=== PATIENT | male | born 1970 | race Caucasian/White ===

== ENCOUNTER 2017-07-14 18:40 | Emergency (ER) | payer MEDICAID ==
[~2017-07-14] VITALS: Ht 177.8 cm; Wt 77.1 kg
[2017-07-14 19:13] VITALS: BP 161/102
[2017-07-15] MEDS ORDERED: LORazepam 0.5 MG TAB PO ONE (02:30)
== END 2017-07-15 03:02 | disposition home or self-care (01) ==
LOC: ER 18:40 → EDBD 18:40 → ER 07-15 03:02
DX: F41.9 Anxiety disorder, unspecified (principal); F10.10 Alcohol abuse, uncomplicated; F17.210 Nicotine dependence, cigarettes, uncomplicated; Z59.0 Homelessness

== ENCOUNTER 2018-04-23 08:35 | Emergency (ER) | payer MEDICAID ==
[~2018-04-23] VITALS: Ht 175.3 cm; Wt 72.6 kg
[2018-04-23 09:19] LABS: Basophils # (auto) 0.1 uL; Hematocrit 50.2 % (41.0-53.0); Hemoglobin 17.5 g/dL (13.5-17.5); Lymphocytes # (auto) 0.7 uL; Mean Corpuscular Hemoglobin 36.3 pg (28.0-32.0); Nucleated Red Blood Cells % 0.1 %; Platelet Count (auto) 201 10^3/uL (140-450); Red Blood Cells 4.81 10^6/uL (4.5-5.90); White Blood Cell 4.7 10^3/uL (4.4-10.8)
[2018-04-23 09:21] LABS: Basophils % (auto) 1.3 % (0.0-2.0); Eosinophils # (auto) 0.1 uL; Eosinophils % (auto) 1.2 % (0.0-7.0); Lymphocytes % (auto) 15.6 % (10.0-50.0); Mean Corpuscular Hgb Conc. 34.8 g/dL (32.0-36.0); Mean Corpuscular Volume 104.3 fL (80.0-100.0); Monocytes # (auto) 0.6 uL; Monocytes % (auto) 12.2 % (0.0-12.0); Neutrophils # (auto) 3.3 uL; Neutrophils % (auto) 69.7 % (37.0-80.0); Red Cell Distribution Width 15.4 % (11.8-14.3)
[2018-04-23 09:39] LABS: Alanine Aminotransferase 18 U/L (16-61); Amylase 40 U/L (25-115); Anion Gap 7 (5-15); Aspartate Aminotransferase 31 U/L (15-37); BUN/Creatinine Ratio 16.2; Blood Urea Nitrogen 11 mg/dL (7-18); Carbon Dioxide 26 mmol/L (21-32); Chloride 106 mmol/L (98-107); GFR African American 161 mL/min; GFR Non-African American 133 mL/min; Glucose 85 mg/dL (74-106); Lipase 84 U/L (73-393); Potassium 3.9 mmol/L (3.5-5.1); Sodium 139 mmol/L (136-145)
[2018-04-23 09:44] LABS: Alkaline Phosphatase 68 U/L (45-117); Bilirubin, Total 0.6 mg/dL (0.2-1.0); Total Protein 7.9 g/dL (6.4-8.2)
[2018-04-23] MEDS ORDERED: SODIUM CHLORIDE 0.9% 1,000 ML IVB ONE (10:44)
[2018-04-23] MEDS ORDERED: METOCLOPRAMIDE HCL 5MG/ml INJ 2ml VIAL IV ONE (10:45)
[2018-04-23] MEDS ORDERED: DONNATAL 5ml ORAL Elix (BELLADONNA ALK-PHENOBARB) PO ONE (10:45)
[2018-04-23] MEDS ORDERED: FAMOTIDINE 20 MG TAB PO ONE (10:45)
[2018-04-23] MEDS ORDERED: ALUM & MAG HYDROX-SIMETH LIQ(MAALOX) 30 ML PO ONE (10:45)
[2018-04-23 11:56] LABS: Urine Bacteria NONE SEEN /hpf (None Seen); Urine Blood Negative /uL (Negative); Urine Hyaline Cast FEW /lpf (0 - 2); Urine Mucus FEW (None Seen); Urine Specific Gravity 1.024 (1.001-1.035); Urine WBC 3 /hpf (0 - 3)
[2018-04-23] MEDS ORDERED: THIAMINE INJ 100 MG, MULTIPLE VITAMIN 10 ML, FOLIC ACID 1 MG, MAGNESIUM SULF SDV 50% 8 ... IV SCH ×5 (12:00)
[2018-04-23 12:57] LABS: Alcohol, Urine < 3.0 mg/dL (0-5); Amphetamine Screen, Urine NEGATIVE (NEGATIVE); Barbiturate Scree,Urine NEGATIVE (NEGATIVE); Benzodiazephine Screen, Urine NEGATIVE (NEGATIVE); Cannabinoid Screen, Urine NEGATIVE (NEGATIVE); Cocaine Screen, Urine NEGATIVE (NEGATIVE); Opiate Scree,Urine NEGATIVE (NEGATIVE); Phencyclidine Screen, Urine NEGATIVE (NEGATIVE)
[2018-04-23 16:15] VITALS: BP 114/86
== END 2018-04-23 15:48 | disposition home or self-care (01) ==
LOC: ER 08:35 → EDBD 08:35 → EDUNIT# 08:35 → ER 15:48
DX: F41.1 Generalized anxiety disorder (principal); F10.239 Alcohol dependence with withdrawal, unspecified; I10 Essential (primary) hypertension; F17.210 Nicotine dependence, cigarettes, uncomplicated; Y90.0 Blood alcohol level of less than 20 mg/100 ml; Z59.0 Homelessness
CPT/HCPCS: 36415; 71046; 71250; 80053; 80307; 81001; 82150; 83690; 83735; 84484; 85025; 93005; 96361; 96374; 96375; 99284; J2765; J3411; J3475; J7030

== ENCOUNTER 2019-02-28 16:43 | Emergency (ER) | payer MEDICAID ==
[~2019-02-28] VITALS: Ht 172.7 cm; Wt 68.0 kg
[2019-02-28 18:51] LABS: Basophils # (auto) 0.1 uL; Basophils % (auto) 0.8 % (0.0-2.0); Eosinophils # (auto) 0.4 uL; Eosinophils % (auto) 4.7 % (0.0-7.0); Hematocrit 43.5 % (41.0-53.0); Hemoglobin 14.4 g/dL (13.5-17.5); Lymphocytes # (auto) 3.6 uL; Lymphocytes % (auto) 41.8 % (10.0-50.0); Mean Corpuscular Hemoglobin 31.1 pg (28.0-32.0); Mean Corpuscular Volume 94.2 fL (80.0-100.0); Monocytes # (auto) 0.6 uL; Monocytes % (auto) 6.9 % (0.0-12.0); Neutrophils % (auto) 45.8 % (37.0-80.0); Nucleated Red Blood Cells % 0.1 %; Platelet Count (auto) 406 10^3/uL (140-450); Red Blood Cells 4.62 10^6/uL (4.5-5.90); Red Cell Distribution Width 14.4 % (11.8-14.3); White Blood Cell 8.7 10^3/uL (4.4-10.8)
[2019-02-28 19:26] LABS: Albumin 4.6 g/dL (3.4-5.0); Potassium 3.7 mmol/L (3.5-5.1)
[2019-02-28 19:33] LABS: BUN/Creatinine Ratio 15.7; Bilirubin, Total 0.2 mg/dL (0.2-1.0); Total Protein 8.6 g/dL (6.4-8.2)
[2019-02-28] MEDS ORDERED: SODIUM CHLORIDE 0.9% 3,000 ML IV ONE (21:00)
[2019-02-28 23:53] LABS: Amphetamine Screen, Urine NEGATIVE (NEGATIVE); Barbiturate Scree,Urine NEGATIVE (NEGATIVE); Benzodiazephine Screen, Urine NEGATIVE (NEGATIVE); Cannabinoid Screen, Urine NEGATIVE (NEGATIVE); Cocaine Screen, Urine NEGATIVE (NEGATIVE); Opiate Scree,Urine NEGATIVE (NEGATIVE); Phencyclidine Screen, Urine NEGATIVE (NEGATIVE)
[2019-03-01] MEDS ORDERED: SODIUM CHLORIDE 0.9% 2,000 ML IV ONE (02:15)
[2019-03-01 04:00] VITALS: BP 114/76
== END 2019-03-01 05:51 | disposition home or self-care (01) ==
LOC: EDBD 16:43 → ER 16:52
DX: F10.129 Alcohol abuse with intoxication, unspecified (principal); F17.210 Nicotine dependence, cigarettes, uncomplicated; Z59.0 Homelessness; Y90.8 Blood alcohol level of 240 mg/100 ml or more
CPT/HCPCS: 36415; 80053; 80307; 80320; 85025; 99283; J7030

== ENCOUNTER → 2019-09-25 | Emergency (ER) | payer MEDICAID ==
[~2019-09-25] VITALS: Ht 175.3 cm; Wt 61.2 kg
[2019-09-25 19:08] VITALS: BP 112/88
== END ==
LOC: ER 19:02
DX: F10.10 Alcohol abuse, uncomplicated (principal); R51 Headache; I10 Essential (primary) hypertension; V43.52XA Car driver injured in collision with other type car in traffic accident, initial encounter; Y93.89 Activity, other specified; Y92.89 Other specified places as the place of occurrence of the external cause; Y99.8 Other external cause status

== ENCOUNTER 2019-10-03 16:21 | Emergency (ER) | payer MEDICAID ==
[~2019-10-03] VITALS: Ht 175.3 cm; Wt 61.2 kg
[2019-10-03] MEDS ORDERED: SODIUM CHLORIDE 0.9% 1,000 ML IV ONE (16:48)
[2019-10-03] MEDS ORDERED: cefTRIAXone 1GM/50ML D5W 50 ML IV ONE (17:00)
[2019-10-03 17:22] LABS: Mean Corpuscular Volume 108.1 fL (80.0-100.0)
[2019-10-03 17:24] LABS: Hematocrit 38.8 % (41.0-53.0); Hemoglobin 13.3 g/dL (13.5-17.5); Mean Corpuscular Hemoglobin 36.9 pg (28.0-32.0); Mean Corpuscular Hgb Conc. 34.2 g/dL (32.0-36.0); Platelet Count (auto) 149 10^3/uL (140-450); Red Blood Cells 3.59 10^6/uL (4.5-5.90); Red Cell Distribution Width 14.2 % (11.8-14.3)
[2019-10-03 17:27] LABS: Basophils % (manual) 0 (0.0-2.0); Blast Cells 0; Metamyelocytes % 0; Myelocytes % 0; Promyelocytes % 0; Reactive Lymphocytes 0
[2019-10-03 17:41] LABS: Albumin 2.9 g/dL (3.4-5.0); Calcium 8.1 mg/dL (8.5-10.1); Magnesium 2.1 mg/dL (1.6-2.6); Potassium 3.5 mmol/L (3.5-5.1)
[2019-10-03 17:46] LABS: BUN/Creatinine Ratio 6.4; Bilirubin, Total 0.7 mg/dL (0.2-1.0); Total Protein 5.8 g/dL (6.4-8.2)
[2019-10-03 18:45] LABS: Band Neutrophils % (manual) 3; Eosinophils % (manual) 2 (0-7); Lymphocytes % (manual) 16 (10.0-50.0); Monocytes % (manual) 15 (0-12)
[2019-10-03 20:55] VITALS: BP 118/80
== END 2019-10-03 21:09 | disposition home or self-care (01) ==
LOC: EDBD 16:21 → ER 16:21
DX: L03.116 Cellulitis of left lower limb (principal); L03.115 Cellulitis of right lower limb; D75.89 Other specified diseases of blood and blood-forming organs; B35.0 Tinea barbae and tinea capitis; F10.129 Alcohol abuse with intoxication, unspecified; Z59.0 Homelessness; I10 Essential (primary) hypertension; Y90.9 Presence of alcohol in blood, level not specified
CPT/HCPCS: 36415; 71046; 73630; 80053; 83735; 85007; 85027; 93005; 96365; 99285; J0696

== ENCOUNTER 2020-03-23 20:10 | Emergency (ER) | payer MEDICAID ==
[~2020-03-23] VITALS: Ht 175.3 cm; Wt 63.5 kg
[2020-03-23 21:46] LABS: Basophils # (auto) 0 10 ^3/uL (0-0.2); Basophils % (auto) 0.6 % (0.0-2.0); Eosinophils # (auto) 0.2 10 ^3/uL (0-0.8); Eosinophils % (auto) 2.4 % (0.0-7.0); Hemoglobin 15.6 g/dL (13.5-17.5); Lymphocytes # (auto) 3.5 10 ^3/uL (0.4-5.4); Lymphocytes % (auto) 49.6 % (10.0-50.0); Mean Corpuscular Hemoglobin 32.4 pg (28.0-32.0); Mean Corpuscular Hgb Conc. 33.2 g/dL (32.0-36.0); Mean Corpuscular Volume 97.6 fL (80.0-100.0); Monocytes # (auto) 0.7 10 ^3/uL (0-1.3); Monocytes % (auto) 9.9 % (0.0-12.0); Neutrophils # (auto) 2.7 10 ^3/uL (1.6-8.6); Neutrophils % (auto) 37.5 % (37.0-80.0); Nucleated Red Blood Cells % 0.1 %; Platelet Count (auto) 250 10^3/uL (140-450); Red Blood Cells 4.82 10^6/uL (4.5-5.90); Red Cell Distribution Width 16.5 % (11.8-14.3); White Blood Cell 7.1 10^3/uL (4.4-10.8)
[2020-03-23 21:59] LABS: Albumin 4.4 g/dL (3.4-5.0)
[2020-03-23 22:00] LABS: Acetaminophen < 2.0 ug/mL (10-30); Salicylate 6.8 mg/dL (2.8-20.0)
[2020-03-23 22:04] LABS: Urine WBC None Seen /hpf (0 - 3)
[2020-03-23 22:05] LABS: BUN/Creatinine Ratio 11.1; Bilirubin, Total 0.2 mg/dL (0.2-1.0); Total Protein 8.4 g/dL (6.4-8.2)
[2020-03-23 22:20] LABS: Urine Bacteria NONE SEEN /hpf (None Seen); Urine Blood Negative /uL (Negative); Urine Hyaline Cast MANY /lpf (0 - 2); Urine Mucus FEW (None Seen); Urine Specific Gravity 1.017 (1.001-1.035)
[2020-03-23 22:30] LABS: Amphetamine Screen, Urine NEGATIVE (NEGATIVE); Barbiturate Scree,Urine NEGATIVE (NEGATIVE); Benzodiazephine Screen, Urine NEGATIVE (NEGATIVE); Cannabinoid Screen, Urine NEGATIVE (NEGATIVE); Cocaine Screen, Urine NEGATIVE (NEGATIVE); Phencyclidine Screen, Urine NEGATIVE (NEGATIVE)
[2020-03-23 22:39] LABS: Opiate Scree,Urine NEGATIVE (NEGATIVE)
[2020-03-23] MEDS ORDERED: SODIUM CHLORIDE 0.9% 1,000 ML IV ONE (22:45)
[2020-03-23] MEDS ORDERED: THIAMINE INJ 100 MG in SODIUM CHLORIDE 0.9% 1,000 ML IV ONE (22:45)
[2020-03-24] MEDS ORDERED: THIAMINE 100mg/ml INJ (200mg/2ml VIAL) ONE ×2 (00:06→02:29)
[2020-03-24] MEDS ORDERED: chlordiazePOXIDE HCL 5 MG CAP PO SCH (10:00)
[2020-03-24] MEDS: chlordiazePOXIDE HCL 5 MG CAP PO SCH (22:00)
[2020-03-25] MEDS: chlordiazePOXIDE HCL 5 MG CAP PO SCH ×2 (10:32→21:52)
[2020-03-26] MEDS: chlordiazePOXIDE HCL 5 MG CAP PO SCH (09:08)
[2020-03-27] MEDS: chlordiazePOXIDE HCL 5 MG CAP PO SCH ×3 (00:04→22:19)
[2020-03-27] MEDS ORDERED: chlordiazePOXIDE HCL 5 MG CAP ONE ×2 (11:16→22:11)
[2020-03-27] MEDS ORDERED: chlordiazePOXIDE HCL 25 MG CAP ONE (21:57)
[2020-03-28 09:58] VITALS: BP 110/83
== END 2020-03-28 10:59 | disposition home or self-care (01) ==
LOC: EDBD 20:10 → ER 20:14
DX: F10.129 Alcohol abuse with intoxication, unspecified (principal); R45.851 Suicidal ideations; I10 Essential (primary) hypertension; Y90.9 Presence of alcohol in blood, level not specified; F17.210 Nicotine dependence, cigarettes, uncomplicated; Z20.828 Contact with and (suspected) exposure to other viral communicable diseases
CPT/HCPCS: 36415; 80053; 80307; 80320; 80329; 81001; 85025; 87426; 96361; 96365; 99285; C9803; J3411; J7030; U0003

== ENCOUNTER 2020-04-14 17:10 | Emergency (ER) | payer MEDICAID ==
[~2020-04-14] VITALS: Ht 177.8 cm; Wt 61.2 kg
[2020-04-14 17:17] VITALS: BP 117/72
[2020-04-14] MEDS: HYDROcodone-ACET 10/325MG TAB PO ONE (19:45)
== END 2020-04-14 20:59 | disposition left against medical advice (07) ==
LOC: EDBD 17:10 → EDUNIT# 17:10 → ER 17:12
DX: S00.81XA Abrasion of other part of head, initial encounter (principal); F10.129 Alcohol abuse with intoxication, unspecified; F17.210 Nicotine dependence, cigarettes, uncomplicated; Z59.0 Homelessness; W18.39XA Other fall on same level, initial encounter; Y93.89 Activity, other specified; Y92.89 Other specified places as the place of occurrence of the external cause; Y99.8 Other external cause status; Y90.8 Blood alcohol level of 240 mg/100 ml or more
CPT/HCPCS: 70450; 70486; 72125

== ENCOUNTER 2020-04-15 12:43 | Emergency (ER) | payer MEDICAID ==
[~2020-04-15] VITALS: Ht 175.3 cm; Wt 59.0 kg
[2020-04-15 13:01] VITALS: BP 132/90
== END 2020-04-15 16:01 | disposition left against medical advice (07) ==
LOC: EDBD 12:43 → ER 12:43
DX: F10.10 Alcohol abuse, uncomplicated (principal); F17.210 Nicotine dependence, cigarettes, uncomplicated; I10 Essential (primary) hypertension; Z59.0 Homelessness
CPT/HCPCS: 93005

== ENCOUNTER 2020-04-16 01:36 | Emergency (ER) | payer MEDICAID ==
[~2020-04-16] VITALS: Ht 175.3 cm; Wt 81.6 kg
[2020-04-16 02:26] LABS: Basophils # (auto) 0.1 10 ^3/uL (0-0.2); Basophils % (auto) 0.7 % (0.0-2.0); Eosinophils # (auto) 0.3 10 ^3/uL (0-0.8); Eosinophils % (auto) 4.1 % (0.0-7.0); Hematocrit 45.6 % (41.0-53.0); Hemoglobin 15.4 g/dL (13.5-17.5); Lymphocytes # (auto) 2.7 10 ^3/uL (0.4-5.4); Lymphocytes % (auto) 31.8 % (10.0-50.0); Mean Corpuscular Hemoglobin 33.4 pg (28.0-32.0); Mean Corpuscular Hgb Conc. 33.7 g/dL (32.0-36.0); Mean Corpuscular Volume 99.3 fL (80.0-100.0); Monocytes # (auto) 0.7 10 ^3/uL (0-1.3); Monocytes % (auto) 7.8 % (0.0-12.0); Neutrophils # (auto) 4.8 10 ^3/uL (1.6-8.6); Neutrophils % (auto) 55.6 % (37.0-80.0); Nucleated Red Blood Cells % 0.1 %; Platelet Count (auto) 344 10^3/uL (140-450); Red Blood Cells 4.59 10^6/uL (4.5-5.90); Red Cell Distribution Width 16.9 % (11.8-14.3); White Blood Cell 8.6 10^3/uL (4.4-10.8)
[2020-04-16 02:45] LABS: Alanine Aminotransferase 20 U/L (16-61); Albumin 4.3 g/dL (3.4-5.0); Anion Gap 7 (5-15); Aspartate Aminotransferase 23 U/L (15-37); BUN/Creatinine Ratio 14.4; Blood Urea Nitrogen 13 mg/dL (7-18); Carbon Dioxide 26 mmol/L (21-32); Chloride 106 mmol/L (98-107); GFR African American 115 mL/min; GFR Non-African American 95 mL/min; Glucose 72 mg/dL (74-106); Magnesium 1.7 mg/dL (1.6-2.6); Potassium 4.1 mmol/L (3.5-5.1); Sodium 139 mmol/L (136-145)
[2020-04-16 02:50] LABS: Alkaline Phosphatase 77 U/L (45-117); Bilirubin, Total 0.5 mg/dL (0.2-1.0); Total Protein 8.1 g/dL (6.4-8.2)
[2020-04-16 03:01] LABS: INR 0.91 (0.9-1.15); Partial Thromboplastin Time 28.5 sec (23.0-31.2)
[2020-04-16 07:30] VITALS: BP 124/72
== END 2020-04-16 09:10 | disposition home or self-care (01) ==
LOC: ER 01:36 → EDBD 01:36 → ER 09:09
DX: R07.89 Other chest pain (principal); F41.9 Anxiety disorder, unspecified; E86.0 Dehydration; I10 Essential (primary) hypertension; F17.210 Nicotine dependence, cigarettes, uncomplicated; Z59.0 Homelessness
CPT/HCPCS: 36415; 71045; 80053; 83735; 83880; 84443; 84484; 85025; 85610; 85730; 93005

== ENCOUNTER 2020-04-19 20:59 | Emergency (ER) | payer MEDICAID ==
[~2020-04-19] VITALS: Ht 172.7 cm; Wt 65.8 kg
[2020-04-19] MEDS ORDERED: SODIUM CHLORIDE 0.9% 1,000 ML IV ONE (21:30)
[2020-04-19] MEDS ORDERED: THIAMINE INJ 100 MG in SODIUM CHLORIDE 0.9% 1,000 ML IV ONE (21:30)
[2020-04-19 22:14] LABS: Urine WBC None Seen /hpf (0 - 3)
[2020-04-19 22:49] LABS: Urine Bacteria NONE SEEN /hpf (None Seen); Urine Blood Negative /uL (Negative); Urine Specific Gravity 1.003 (1.001-1.035)
[2020-04-19 22:53] LABS: Amphetamine Screen, Urine NEGATIVE (NEGATIVE); Barbiturate Scree,Urine NEGATIVE (NEGATIVE); Benzodiazephine Screen, Urine NEGATIVE (NEGATIVE); Cannabinoid Screen, Urine NEGATIVE (NEGATIVE); Cocaine Screen, Urine NEGATIVE (NEGATIVE); Opiate Scree,Urine NEGATIVE (NEGATIVE); Phencyclidine Screen, Urine NEGATIVE (NEGATIVE)
[2020-04-19 23:06] LABS: Basophils # (auto) 0 10 ^3/uL (0-0.2); Basophils % (auto) 0.6 % (0.0-2.0); Eosinophils # (auto) 0.4 10 ^3/uL (0-0.8); Eosinophils % (auto) 5.7 % (0.0-7.0); Hematocrit 43.3 % (41.0-53.0); Hemoglobin 14.7 g/dL (13.5-17.5); Lymphocytes # (auto) 2.9 10 ^3/uL (0.4-5.4); Lymphocytes % (auto) 43.9 % (10.0-50.0); Mean Corpuscular Hemoglobin 33.4 pg (28.0-32.0); Mean Corpuscular Hgb Conc. 33.8 g/dL (32.0-36.0); Mean Corpuscular Volume 98.8 fL (80.0-100.0); Monocytes # (auto) 0.5 10 ^3/uL (0-1.3); Monocytes % (auto) 7.9 % (0.0-12.0); Neutrophils # (auto) 2.7 10 ^3/uL (1.6-8.6); Neutrophils % (auto) 41.9 % (37.0-80.0); Nucleated Red Blood Cells % 0.2 %; Platelet Count (auto) 234 10^3/uL (140-450); Red Blood Cells 4.38 10^6/uL (4.5-5.90); Red Cell Distribution Width 16.4 % (11.8-14.3); White Blood Cell 6.5 10^3/uL (4.4-10.8)
[2020-04-19 23:28] LABS: Acetaminophen < 2.0 ug/mL (10-30); Salicylate 8.7 mg/dL (2.8-20.0)
[2020-04-19 23:29] LABS: Calcium 8.3 mg/dL (8.5-10.1); Chloride 115 mmol/L (98-107); Potassium 3.6 mmol/L (3.5-5.1); Sodium 146 mmol/L (136-145)
[2020-04-19 23:32] LABS: Alanine Aminotransferase 15 U/L (16-61); Albumin 3.8 g/dL (3.4-5.0); Aspartate Aminotransferase 16 U/L (15-37); BUN/Creatinine Ratio 12.1; Blood Urea Nitrogen 8 mg/dL (7-18); GFR African American 165 mL/min; GFR Non-African American 136 mL/min; Glucose 80 mg/dL (74-106); Magnesium 2.1 mg/dL (1.6-2.6)
[2020-04-19 23:40] LABS: INR 0.88 (0.9-1.15); Partial Thromboplastin Time 26.8 sec (23.0-31.2)
[2020-04-19 23:41] LABS: Alkaline Phosphatase 70 U/L (45-117); Bilirubin, Total 0.2 mg/dL (0.2-1.0); Total Protein 7.5 g/dL (6.4-8.2)
[2020-04-19 23:42] LABS: Anion Gap 5 (5-15); Carbon Dioxide 26 mmol/L (21-32)
[2020-04-20] MEDS ORDERED: LORazepam 2MG/ML-1ML VIAL IV ONE (00:30)
[2020-04-20] MEDS ORDERED: diphenhdrAMINE HCL 50 MG/1 ML VL IV ONE (00:45)
[2020-04-20] MEDS ORDERED: SODIUM CHLORIDE 0.9% 1,000 ML IV ONE (03:15)
[2020-04-20] MEDS ORDERED: IOHEXOL 350 MG/ML 100ML IJ ONE (03:25)
[2020-04-20 10:31] VITALS: BP 123/85
== END 2020-04-20 10:32 | disposition home or self-care (01) ==
LOC: EDBD 20:59 → ER 21:02
DX: S00.81XA Abrasion of other part of head, initial encounter (principal); Y90.8 Blood alcohol level of 240 mg/100 ml or more; R45.851 Suicidal ideations; F41.9 Anxiety disorder, unspecified; F32.9 Major depressive disorder, single episode, unspecified; I10 Essential (primary) hypertension; Z86.2 Personal history of diseases of the blood and blood-forming organs and certain disorders involving the immune mechanism; F10.129 Alcohol abuse with intoxication, unspecified; X58.XXXA Exposure to other specified factors, initial encounter; Y93.89 Activity, other specified; Y92.89 Other specified places as the place of occurrence of the external cause; Y99.8 Other external cause status
CPT/HCPCS: 36415; 71045; 71275; 80053; 80307; 80320; 80329; 81001; 83735; 84484; 85025; 85379; 85610; 85730; 96361; 96365; 96375; 99285; J2060; J3411; J7030; Q9967

== ENCOUNTER 2021-03-24 13:51 | Emergency (ER) | payer MEDICAID ==
[~2021-03-24] VITALS: Ht 180.3 cm; Wt 77.1 kg
[2021-03-24] MEDS ORDERED: SODIUM CHLORIDE 0.9% 1,000 ML IV ONE ×2 (14:00→17:15)
[2021-03-24 14:33] LABS: Basophils # (auto) 0 10 ^3/uL (0-0.2); Basophils % (auto) 0.6 % (0.0-2.0); Eosinophils # (auto) 0.1 10 ^3/uL (0-0.8); Hematocrit 45.9 % (41.0-53.0); Lymphocytes # (auto) 0.9 10 ^3/uL (0.4-5.4); Lymphocytes % (auto) 12.6 % (10.0-50.0); Mean Corpuscular Hemoglobin 36.5 pg (28.0-32.0); Mean Corpuscular Hgb Conc. 34.8 g/dL (32.0-36.0); Mean Corpuscular Volume 104.8 fL (80.0-100.0); Monocytes # (auto) 0.4 10 ^3/uL (0-1.3); Monocytes % (auto) 5.2 % (0.0-12.0); Neutrophils # (auto) 5.9 10 ^3/uL (1.6-8.6); Neutrophils % (auto) 80.6 % (37.0-80.0); Red Blood Cells 4.38 10^6/uL (4.5-5.90); Red Cell Distribution Width 16.7 % (11.8-14.3); White Blood Cell 7.3 10^3/uL (4.4-10.8)
[2021-03-24 14:48] LABS: Albumin 3.6 g/dL (3.4-5.0); BUN/Creatinine Ratio 19.8; Calcium 8.1 mg/dL (8.5-10.1)
[2021-03-24 14:52] LABS: Bilirubin, Total 0.2 mg/dL (0.2-1.0); Total Protein 7.3 g/dL (6.4-8.2)
[2021-03-24 19:45] VITALS: BP 134/44
== END 2021-03-24 23:44 | disposition home or self-care (01) ==
LOC: EDBD 13:51 → ER 13:51
DX: F10.129 Alcohol abuse with intoxication, unspecified (principal); R07.89 Other chest pain; F17.210 Nicotine dependence, cigarettes, uncomplicated; Y90.8 Blood alcohol level of 240 mg/100 ml or more
CPT/HCPCS: 36415; 80053; 80320; 85025; 93005

== ENCOUNTER 2021-04-01 12:27 | Emergency (ER) | payer MEDICAID ==
[~2021-04-01] VITALS: Ht 175.3 cm; Wt 61.2 kg
[2021-04-01] MEDS ORDERED: SODIUM CHLORIDE 0.9% 1,000 ML IVB ONE (13:15)
[2021-04-01] MEDS ORDERED: FOLIC ACID 1 MG, MULTIPLE VITAMIN 10 ML, MAGNESIUM SULF SDV 50% 8 MEQ, THIAMINE INJ 100... INJ SCH ×5 (13:21)
[2021-04-01 14:10] LABS: Albumin 3.7 g/dL (3.4-5.0); BUN/Creatinine Ratio 23.9; Calcium 8.5 mg/dL (8.5-10.1); Magnesium 1.9 mg/dL (1.6-2.6); Potassium 3.5 mmol/L (3.5-5.1)
[2021-04-01 14:13] LABS: Bilirubin, Total 0.7 mg/dL (0.2-1.0); Total Protein 7.2 g/dL (6.4-8.2)
[2021-04-01 14:34] LABS: Basophils # (auto) 0.1 10 ^3/uL (0-0.2); Basophils % (auto) 1.3 % (0.0-2.0); Blood Alcohol 315.1 mg/dL (0-5); Eosinophils # (auto) 0.1 10 ^3/uL (0-0.8); Eosinophils % (auto) 1.4 % (0.0-7.0); Hematocrit 52.3 % (41.0-53.0); Hemoglobin 17.9 g/dL (13.5-17.5); Lymphocytes % (auto) 19.4 % (10.0-50.0); Mean Corpuscular Hemoglobin 35.1 pg (28.0-32.0); Mean Corpuscular Hgb Conc. 34.2 g/dL (32.0-36.0); Mean Corpuscular Volume 102.6 fL (80.0-100.0); Monocytes # (auto) 0.3 10 ^3/uL (0-1.3); Monocytes % (auto) 7.1 % (0.0-12.0); Neutrophils # (auto) 3.5 10 ^3/uL (1.6-8.6); Neutrophils % (auto) 70.8 % (37.0-80.0); Nucleated Red Blood Cells % 0.2 %; Red Blood Cells 5.09 10^6/uL (4.5-5.90); Red Cell Distribution Width 16.4 % (11.8-14.3); White Blood Cell 4.9 10^3/uL (4.4-10.8)
[2021-04-01 17:41] LABS: Urine Bacteria NONE SEEN /hpf (None Seen); Urine Blood Negative /uL (Negative); Urine Mucus FEW (None Seen); Urine Specific Gravity 1.024 (1.001-1.035); Urine WBC 2 /hpf (0 - 3)
[2021-04-01 17:55] LABS: Amphetamine Screen, Urine NEGATIVE (NEGATIVE); Barbiturate Scree,Urine NEGATIVE (NEGATIVE); Benzodiazephine Screen, Urine NEGATIVE (NEGATIVE); Cannabinoid Screen, Urine NEGATIVE (NEGATIVE); Cocaine Screen, Urine NEGATIVE (NEGATIVE); Opiate Scree,Urine NEGATIVE (NEGATIVE); Phencyclidine Screen, Urine NEGATIVE (NEGATIVE)
[2021-04-01 18:00] LABS: Alcohol, Urine < 3.0 mg/dL (0-10)
[2021-04-01] MEDS ORDERED: LORazepam 2MG/ML-1ML VIAL ONE (18:16)
[2021-04-01] MEDS ORDERED: LORazepam 2MG/ML-1ML VIAL IV ONE (19:00)
[2021-04-01 19:24] VITALS: BP 117/86
== END 2021-04-02 02:01 | disposition home or self-care (01) ==
LOC: ER 12:27 → EDBD 12:27 → ER 04-02 02:01
DX: F10.129 Alcohol abuse with intoxication, unspecified (principal); G93.0 Cerebral cysts; M62.838 Other muscle spasm; M54.12 Radiculopathy, cervical region; M47.892 Other spondylosis, cervical region; D50.9 Iron deficiency anemia, unspecified; R74.8 Abnormal levels of other serum enzymes; I10 Essential (primary) hypertension; F17.210 Nicotine dependence, cigarettes, uncomplicated; W01.0XXA Fall on same level from slipping, tripping and stumbling without subsequent striking against object, initial encounter; Y93.89 Activity, other specified; Y92.89 Other specified places as the place of occurrence of the external cause; Y99.8 Other external cause status; Y90.8 Blood alcohol level of 240 mg/100 ml or more
CPT/HCPCS: 36415; 70450; 72125; 80053; 80307; 80320; 81001; 83735; 84443; 85025; 93005; 96365; 96366; 96375; 99285; J2060; J3411; J3475; J7030; J7070

== ENCOUNTER 2021-06-28 15:26 | Emergency (ER) | payer MEDICAID ==
[~2021-06-28] VITALS: Ht 180.3 cm; Wt 97.5 kg
[2021-06-28 17:33] LABS: Basophils # (auto) 0 10 ^3/uL (0-0.2); Basophils % (auto) 0.6 % (0.0-2.0); Nucleated Red Blood Cells % 0.1 %
[2021-06-28 17:35] LABS: Eosinophils # (auto) 0 10 ^3/uL (0-0.8); Eosinophils % (auto) 0.2 % (0.0-7.0); Hematocrit 49.1 % (41.0-53.0); Lymphocytes # (auto) 2.7 10 ^3/uL (0.4-5.4); Lymphocytes % (auto) 35.1 % (10.0-50.0); Mean Corpuscular Hemoglobin 34.9 pg (28.0-32.0); Mean Corpuscular Hgb Conc. 34.6 g/dL (32.0-36.0); Mean Corpuscular Volume 100.7 fL (80.0-100.0); Monocytes # (auto) 0.7 10 ^3/uL (0-1.3); Monocytes % (auto) 8.6 % (0.0-12.0); Neutrophils # (auto) 4.3 10 ^3/uL (1.6-8.6); Neutrophils % (auto) 55.5 % (37.0-80.0); Red Blood Cells 4.88 10^6/uL (4.5-5.90); Red Cell Distribution Width 13.3 % (11.8-14.3); White Blood Cell 7.7 10^3/uL (4.4-10.8)
[2021-06-28 17:47] LABS: Albumin 4.2 g/dL (3.4-5.0); Calcium 8.9 mg/dL (8.5-10.1)
[2021-06-28 17:48] LABS: Salicylate 4.3 mg/dL (2.8-20.0)
[2021-06-28 17:52] LABS: BUN/Creatinine Ratio 20.3; Bilirubin, Total 0.4 mg/dL (0.2-1.0); Total Protein 7.9 g/dL (6.4-8.2)
[2021-06-28 18:12] LABS: Acetaminophen < 2.0 ug/mL (10-30)
[2021-06-29 07:06] VITALS: BP 133/97
== END 2021-06-29 13:47 | disposition left against medical advice (07) ==
LOC: EDBD 15:26 → ER 15:26
DX: R45.851 Suicidal ideations (principal); F17.210 Nicotine dependence, cigarettes, uncomplicated; I10 Essential (primary) hypertension; F32.9 Major depressive disorder, single episode, unspecified; F41.9 Anxiety disorder, unspecified; Z59.00 Homelessness unspecified
CPT/HCPCS: 36415; 80053; 80320; 80329; 85025

== ENCOUNTER 2021-06-30 21:13 | Emergency (ER) | payer MEDICAID ==
[~2021-06-30] VITALS: Ht 175.3 cm; Wt 81.6 kg
[2021-06-30 22:38] VITALS: BP 138/76
[2021-06-30 22:54] LABS: Basophils # (auto) 0 10 ^3/uL (0-0.2); Basophils % (auto) 0.4 % (0.0-2.0); Eosinophils # (auto) 0.1 10 ^3/uL (0-0.8); Eosinophils % (auto) 1.6 % (0.0-7.0); Hematocrit 49.6 % (41.0-53.0); Lymphocytes # (auto) 2.6 10 ^3/uL (0.4-5.4); Lymphocytes % (auto) 31.7 % (10.0-50.0); Mean Corpuscular Hemoglobin 34.7 pg (28.0-32.0); Mean Corpuscular Hgb Conc. 34.3 g/dL (32.0-36.0); Mean Corpuscular Volume 101.1 fL (80.0-100.0); Monocytes # (auto) 0.5 10 ^3/uL (0-1.3); Monocytes % (auto) 6.6 % (0.0-12.0); Neutrophils # (auto) 4.9 10 ^3/uL (1.6-8.6); Neutrophils % (auto) 59.7 % (37.0-80.0); Nucleated Red Blood Cells % 0.1 %; Red Blood Cells 4.91 10^6/uL (4.5-5.90); White Blood Cell 8.2 10^3/uL (4.4-10.8)
[2021-06-30 23:11] LABS: Albumin 4.5 g/dL (3.4-5.0); Calcium 8.6 mg/dL (8.5-10.1); Magnesium 2.5 mg/dL (1.6-2.6); Potassium 3.8 mmol/L (3.5-5.1)
[2021-06-30 23:12] LABS: Acetaminophen < 2.0 ug/mL (10-30); Salicylate 4.2 mg/dL (2.8-20.0)
[2021-06-30 23:25] LABS: Bilirubin, Total 0.3 mg/dL (0.2-1.0); Total Protein 8.2 g/dL (6.4-8.2)
[2021-06-30 23:57] LABS: BUN/Creatinine Ratio 16.5
== END 2021-06-30 22:50 | disposition home or self-care (01) ==
LOC: EDBD 21:13 → ER 21:13 → EDSEX 21:13 → ER 22:50
DX: F10.129 Alcohol abuse with intoxication, unspecified (principal); F17.210 Nicotine dependence, cigarettes, uncomplicated; I10 Essential (primary) hypertension; Y90.8 Blood alcohol level of 240 mg/100 ml or more
CPT/HCPCS: 36415; 80053; 80320; 80329; 83735; 85025

== ENCOUNTER 2021-11-14 15:10 | Emergency (ER) | payer MEDICAID ==
[~2021-11-14] VITALS: Ht 177.8 cm; Wt 63.5 kg
[2021-11-14 15:47] VITALS: BP 160/90
[2021-11-14] MEDS ORDERED: SODIUM CHLORIDE 0.9% 1,000 ML IVB ONE (17:00)
[2021-11-14] MEDS ORDERED: THIAMINE 100mg/ml INJ (200mg/2ml VIAL) IV ONE (17:00)
[2021-11-14 18:10] LABS: Eosinophils # (auto) 0 10 ^3/uL (0-0.8); Hemoglobin 14.3 g/dL (13.5-17.5); Monocytes # (auto) 0.4 10 ^3/uL (0-1.3); Neutrophils # (auto) 2.9 10 ^3/uL (1.6-8.6); Nucleated Red Blood Cells % 0.1 %; White Blood Cell 6.1 10^3/uL (4.4-10.8)
[2021-11-14 18:12] LABS: Basophils # (auto) 0.1 10 ^3/uL (0-0.2); Basophils % (auto) 1.2 % (0.0-2.0); Eosinophils % (auto) 0.5 % (0.0-7.0); Hematocrit 41.4 % (41.0-53.0); Lymphocytes # (auto) 2.7 10 ^3/uL (0.4-5.4); Lymphocytes % (auto) 44.1 % (10.0-50.0); Mean Corpuscular Hgb Conc. 34.6 g/dL (32.0-36.0); Monocytes % (auto) 6.3 % (0.0-12.0); Neutrophils % (auto) 47.9 % (37.0-80.0); Red Blood Cells 3.98 10^6/uL (4.5-5.90); Red Cell Distribution Width 14.6 % (11.8-14.3)
[2021-11-14 18:23] LABS: Calcium 8.6 mg/dL (8.5-10.1); Potassium 4.1 mmol/L (3.5-5.1); Salicylate 3.2 mg/dL (2.8-20.0)
[2021-11-14 18:30] LABS: Bilirubin, Total 0.7 mg/dL (0.2-1.0); Total Protein 7.4 g/dL (6.4-8.2)
[2021-11-14 18:32] LABS: Acetaminophen < 2.0 ug/mL (10-30)
== END 2021-11-14 22:40 | disposition home or self-care (01) ==
LOC: ER 15:10 → EDBD 15:10 → ER 22:40
DX: F10.129 Alcohol abuse with intoxication, unspecified (principal); E86.0 Dehydration; I10 Essential (primary) hypertension; F17.210 Nicotine dependence, cigarettes, uncomplicated; Z86.2 Personal history of diseases of the blood and blood-forming organs and certain disorders involving the immune mechanism; Y90.8 Blood alcohol level of 240 mg/100 ml or more
CPT/HCPCS: 36415; 80053; 80320; 80329; 85025; 93005

== ENCOUNTER 2024-01-20 12:51 | Inpatient (IN) | payer MEDICAID ==
[~2024-01-20] VITALS: Ht 175.3 cm; Wt 62.4 kg
[2024-01-20 15:12] LABS: Basophils # (auto) 0 10 ^3/uL (0-0.2); Basophils % (auto) 0.4 % (0.0-2.0); Eosinophils # (auto) 0.1 10 ^3/uL (0-0.8); Eosinophils % (auto) 0.8 % (0.0-7.0); Hematocrit 43.5 % (41.0-53.0); Hemoglobin 14.5 g/dL (13.5-17.5); Lymphocytes # (auto) 1.6 10 ^3/uL (0.4-5.4); Lymphocytes % (auto) 17.1 % (10.0-50.0); Mean Corpuscular Hemoglobin 31.4 pg (28.0-32.0); Mean Corpuscular Hgb Conc. 33.4 g/dL (32.0-36.0); Monocytes # (auto) 0.9 10 ^3/uL (0-1.3); Neutrophils # (auto) 6.9 10 ^3/uL (1.6-8.6); Neutrophils % (auto) 72.7 % (37.0-80.0); Platelet Count (auto) 279 10^3/uL (140-450); Red Blood Cells 4.63 10^6/uL (4.5-5.90); Red Cell Distribution Width 18.6 % (11.8-14.3); White Blood Cell 9.5 10^3/uL (4.4-10.8)
[2024-01-20 15:18] LABS: Alanine Aminotransferase 18 U/L (7-40); Albumin 4.1 g/dL (3.2-4.8); Alkaline Phosphatase 48 U/L (46-116); Anion Gap 10 (5-15); Aspartate Aminotransferase 35 U/L (13-40); BUN/Creatinine Ratio 15.1 (10.0-20.0); Blood Alcohol 153.9 mg/dL (<10); Blood Urea Nitrogen 11 mg/dL (9-23); Carbon Dioxide 22 mmol/L (20-30); Chloride 104 mmol/L (98-107); Glucose 59 mg/dL (74-106); Potassium 4.3 mmol/L (3.5-5.1); Sodium 136 mmol/L (136-145)
[2024-01-20 15:19] LABS: Bilirubin, Total 0.5 mg/dL (0.2-1.0); Total Protein 6.4 g/dL (5.7-8.2)
[2024-01-20 15:26] LABS: Lactic Acid w/Reflex 5.6 mmol/L (0.4-2.0)
[2024-01-20 15:38] LABS: Lipase 28 U/L (12-53)
[2024-01-20] MEDS: ONDANSETRON HCL 4 MG/2 ML VIAL IV ONE (15:41)
[2024-01-20] MEDS: SODIUM CHLORIDE 0.9% 1,000 ML IV ONE ×2 (15:41→17:01)
[2024-01-20] MEDS ORDERED: ACETAMINOPHEN 325 MG TAB PO PRN (20:00)
[2024-01-20] MEDS: D5W/SOD CHLO 0.9% 1,000 ML IV SCH (20:00)
[2024-01-20] MEDS ORDERED: DOCUSATE SOD 100 MG CAP PO PRN (20:00)
[2024-01-20] MEDS ORDERED: LORazepam 2MG/ML-1ML VIAL IV PRN (20:00)
[2024-01-20] MEDS ORDERED: ONDANSETRON HCL 4 MG/2 ML VIAL IV PRN (20:00)
[2024-01-20] MEDS ORDERED: MORPHINE SULFATE INJ 2 MG/ml SYRG IV PRN (21:00)
[2024-01-20] MEDS ORDERED: NITROGLYCERIN 0.4 MG SL TAB SL PRN (21:00)
[2024-01-20 23:44] VITALS: PULSE 75; RESP 16; O2SAT 99
[2024-01-21] VITALS (7 sets, daily range): BP systolic 125–155; BP diastolic 70–92; PULSE 62–86; RESP 16–20; TEMP 97.6–98.3; O2SAT 97–99
[2024-01-21] MEDS: HYDROcodone-ACET 5/325MG TAB PO PRN (04:31)
[2024-01-21 06:33] LABS: Basophils # (auto) 0 10 ^3/uL (0-0.2); Basophils % (auto) 0.3 % (0.0-2.0); Eosinophils # (auto) 0.2 10 ^3/uL (0-0.8); Eosinophils % (auto) 2.9 % (0.0-7.0); Hematocrit 37.1 % (41.0-53.0); Hemoglobin 12.3 g/dL (13.5-17.5); Lymphocytes # (auto) 1.5 10 ^3/uL (0.4-5.4); Lymphocytes % (auto) 22.1 % (10.0-50.0); Mean Corpuscular Hemoglobin 31.7 pg (28.0-32.0); Mean Corpuscular Hgb Conc. 33.3 g/dL (32.0-36.0); Mean Corpuscular Volume 95.1 fL (80.0-100.0); Monocytes # (auto) 0.9 10 ^3/uL (0-1.3); Monocytes % (auto) 13.9 % (0.0-12.0); Neutrophils # (auto) 4.1 10 ^3/uL (1.6-8.6); Neutrophils % (auto) 60.8 % (37.0-80.0); Platelet Count (auto) 219 10^3/uL (140-450); Red Cell Distribution Width 18.7 % (11.8-14.3); White Blood Cell 6.8 10^3/uL (4.4-10.8)
[2024-01-21 06:46] LABS: Alanine Aminotransferase 16 U/L (7-40); Albumin 3.4 g/dL (3.2-4.8); Alkaline Phosphatase 36 U/L (46-116); Anion Gap 3 (5-15); Aspartate Aminotransferase 29 U/L (13-40); BUN/Creatinine Ratio 15.4 (10.0-20.0); Bilirubin, Total 0.8 mg/dL (0.2-1.0); Blood Urea Nitrogen 10 mg/dL (9-23); Calcium 7.8 mg/dL (8.7-10.4); Carbon Dioxide 27 mmol/L (20-30); Chloride 109 mmol/L (98-107); Glucose 91 mg/dL (74-106); Potassium 4.8 mmol/L (3.5-5.1); Sodium 139 mmol/L (136-145); Total Protein 5.2 g/dL (5.7-8.2)
[2024-01-21] MEDS ORDERED: ALEN70TA74 PO (07:58)
[2024-01-21] MEDS: MULTIPLE VITAMIN TAB PO SCH (10:53)
[2024-01-21] MEDS: THIAMINE 100mg/ml INJ (200mg/2ml VIAL) IV SCH (10:55)
[2024-01-21] MEDS: NICOTINE 21MG/24 HR TOPICAL PATCH TD ONE (13:15)
[2024-01-21] MEDS: FOLIC ACID 1 MG in D5W 5% 50 ML INJ SCH (14:35)
[2024-01-21 15:29] LABS: Urine Bacteria None Seen /hpf (None Seen)
[2024-01-21 16:12] LABS: Urine Amorphous Crystal FEW /hpf (None Seen); Urine Blood Negative /uL (Negative); Urine Clarity Clear (Clear); Urine Color Light-Yellow (Yellow); Urine Protein, UAD Negative (Negative); Urine Specific Gravity 1.009 (1.001-1.035); Urine Urobilinogen Normal (Negative); Urine WBC <1 /hpf (0 - 3)
[2024-01-21 16:20] LABS: Amphetamine Screen, Urine Neg (NEGATIVE)
[2024-01-21 16:21] LABS: Barbiturate Scree,Urine Neg (NEGATIVE); Benzodiazephine Screen, Urine Neg (NEGATIVE); Cocaine Screen, Urine Neg (NEGATIVE)
[2024-01-21 16:22] LABS: Cannabinoid Screen, Urine Neg (NEGATIVE); Opiate Scree,Urine Neg (NEGATIVE); Phencyclidine Screen, Urine Neg (NEGATIVE)
[2024-01-22] MEDS ORDERED: FOLIC ACID 1 MG TAB PO SCH (10:00)
[2024-01-22] MEDS ORDERED: THIAMINE HCL 100 MG TAB PO SCH (10:00)
== END 2024-01-21 20:02 | disposition home or self-care (01) | DRG 816 ==
LOC: EDBD 12:51 → ER 12:51 → TELE 21:02 → TELE-WESTW 01-21 03:03
PROVIDERS: ADMIT Internal Medicine; ATTEND Internal Medicine
DX: T51.0X1A Toxic effect of ethanol, accidental (unintentional), initial encounter (principal); E87.20 Acidosis, unspecified; E86.0 Dehydration; E16.2 Hypoglycemia, unspecified; I10 Essential (primary) hypertension; M81.0 Age-related osteoporosis without current pathological fracture; K29.70 Gastritis, unspecified, without bleeding; F10.129 Alcohol abuse with intoxication, unspecified; F41.9 Anxiety disorder, unspecified; F17.210 Nicotine dependence, cigarettes, uncomplicated; F32.A Depression, unspecified; Z59.00 Homelessness unspecified; Z87.11 Personal history of peptic ulcer disease; Y92.820 Desert as the place of occurrence of the external cause; Y90.6 Blood alcohol level of 120-199 mg/100 ml; T67.9XXA Effect of heat and light, unspecified, initial encounter
CPT/HCPCS: 36415; 70450; 71045; 71250; 80053; 80307; 80320; 81001; 82550; 83605; 83690; 84484; 85025; 87081; 93005; G0378; J2405; J7042; J7060

== ENCOUNTER 2024-03-12 14:47 | Inpatient (IN) | payer MEDICAID ==
[~2024-03-12] VITALS: Ht 175.3 cm; Wt 64.5 kg
[~2024-03-12 14:47] MED LIST: ALEN70TA74 PO
[2024-03-12 15:18] LABS: Urine Bacteria None Seen /hpf (None Seen)
[2024-03-12 15:41] LABS: Urine Blood Negative /uL (Negative); Urine Clarity Clear (Clear); Urine Color Light-Yellow (Yellow); Urine Mucus FEW (None Seen); Urine Protein, UAD TRACE (Negative); Urine Specific Gravity 1.013 (1.001-1.035); Urine Urobilinogen Normal (Negative); Urine WBC 1 /hpf (0 - 3)
[2024-03-12 15:44] LABS: Amphetamine Screen, Urine Neg (NEGATIVE); Barbiturate Scree,Urine Neg (NEGATIVE); Benzodiazephine Screen, Urine Neg (NEGATIVE); Cocaine Screen, Urine Neg (NEGATIVE)
[2024-03-12 15:45] LABS: Cannabinoid Screen, Urine Neg (NEGATIVE); Opiate Scree,Urine Neg (NEGATIVE); Phencyclidine Screen, Urine Neg (NEGATIVE)
[2024-03-12] MEDS: SODIUM CHLORIDE 0.9% 1,000 ML IV ONE ×2 (15:54→17:53)
[2024-03-12 16:09] VITALS: PULSE 85; RESP 18; O2SAT 98
[2024-03-12] MEDS: LORazepam 2MG/ML-1ML VIAL IV ONE (16:28)
[2024-03-12 16:50] LABS: Basophils # (auto) 0 10 ^3/uL (0-0.2); Basophils % (auto) 0.4 % (0.0-2.0); Eosinophils # (auto) 0.1 10 ^3/uL (0-0.8); Eosinophils % (auto) 2.2 % (0.0-7.0); Hematocrit 42.2 % (41.0-53.0); Hemoglobin 14.4 g/dL (13.5-17.5); Lymphocytes # (auto) 2.1 10 ^3/uL (0.4-5.4); Lymphocytes % (auto) 33.3 % (10.0-50.0); Mean Corpuscular Hemoglobin 32.6 pg (28.0-32.0); Mean Corpuscular Hgb Conc. 34.2 g/dL (32.0-36.0); Mean Corpuscular Volume 95.2 fL (80.0-100.0); Monocytes # (auto) 0.6 10 ^3/uL (0-1.3); Monocytes % (auto) 9.9 % (0.0-12.0); Neutrophils # (auto) 3.4 10 ^3/uL (1.6-8.6); Neutrophils % (auto) 54.2 % (37.0-80.0); Nucleated Red Blood Cells % 0.1 %; Platelet Count (auto) 180 10^3/uL (140-450); Red Blood Cells 4.43 10^6/uL (4.5-5.90); Red Cell Distribution Width 19.4 % (11.8-14.3); White Blood Cell 6.3 10^3/uL (4.4-10.8)
[2024-03-12 17:00] LABS: Alanine Aminotransferase 104 U/L (7-40); Albumin 3.7 g/dL (3.2-4.8); Alkaline Phosphatase 53 U/L (46-116); Anion Gap 10 (5-15); Aspartate Aminotransferase 325 U/L (13-40); BUN/Creatinine Ratio 21.2 (10.0-20.0); Blood Urea Nitrogen 11 mg/dL (9-23); Calcium 8.5 mg/dL (8.7-10.4); Carbon Dioxide 25 mmol/L (20-31); Chloride 108 mmol/L (98-107); Glucose 82 mg/dL (74-106); Magnesium 1.9 mg/dL (1.6-2.6); Potassium 3.4 mmol/L (3.5-5.1); Sodium 143 mmol/L (136-145)
[2024-03-12 17:01] LABS: Bilirubin, Total 0.5 mg/dL (0.2-1.0); Total Protein 5.8 g/dL (5.7-8.2)
[2024-03-12 17:09] LABS: Blood Alcohol 308.8 mg/dL (<10)
[2024-03-12 17:26] LABS: Lactic Acid w/Reflex 3.9 mmol/L (0.4-2.0)
[2024-03-12 20:20] VITALS: PULSE 85; RESP 18; O2SAT 98
[2024-03-13] VITALS (9 sets, daily range): BP systolic 125–155; BP diastolic 79–89; PULSE 72–103; RESP 16–19; TEMP 97.6–98.9; O2SAT 95–99
[2024-03-13] MEDS ORDERED: ONDANSETRON HCL 4 MG/2 ML VIAL IV PRN (00:45)
[2024-03-13] MEDS ORDERED: DOCUSATE SOD 100 MG CAP PO PRN (00:45)
[2024-03-13] MEDS ORDERED: NITROGLYCERIN 0.4 MG SL TAB SL PRN (00:45)
[2024-03-13] MEDS ORDERED: MORPHINE SULFATE INJ 2 MG/ml SYRG IV PRN (00:45)
[2024-03-13] MEDS ORDERED: IBUPROFEN 600 MG TAB PO PRN (00:45)
[2024-03-13] MEDS: POTASSIUM CHL 20 Meq TABLET PO ONE (01:07)
[2024-03-13] MEDS: LACTATED RINGER'S 1,000 ML IV SCH ×2 (01:09→13:06)
[2024-03-13] MEDS: LORazepam 2MG/ML-1ML VIAL IV PRN (01:19)
[2024-03-13 08:33] LABS: Basophils # (auto) 0 10 ^3/uL (0-0.2); Basophils % (auto) 0.4 % (0.0-2.0); Eosinophils # (auto) 0.1 10 ^3/uL (0-0.8); Eosinophils % (auto) 1.4 % (0.0-7.0); Hematocrit 39.9 % (41.0-53.0); Hemoglobin 13.7 g/dL (13.5-17.5); Lymphocytes # (auto) 1.5 10 ^3/uL (0.4-5.4); Lymphocytes % (auto) 14.9 % (10.0-50.0); Mean Corpuscular Hemoglobin 32.6 pg (28.0-32.0); Mean Corpuscular Hgb Conc. 34.3 g/dL (32.0-36.0); Monocytes # (auto) 0.6 10 ^3/uL (0-1.3); Monocytes % (auto) 5.9 % (0.0-12.0); Neutrophils # (auto) 7.6 10 ^3/uL (1.6-8.6); Neutrophils % (auto) 77.4 % (37.0-80.0); Platelet Count (auto) 144 10^3/uL (140-450); Red Cell Distribution Width 19.4 % (11.8-14.3); White Blood Cell 9.8 10^3/uL (4.4-10.8)
[2024-03-13] MEDS: THIAMINE HCL 100 MG TAB PO SCH (08:35)
[2024-03-13] MEDS: MULTIPLE VITAMIN TAB PO SCH (08:35)
[2024-03-13] MEDS: FOLIC ACID 1 MG TAB PO SCH (08:36)
[2024-03-13] MEDS: HYDROcodone-ACET 5/325MG TAB PO PRN (08:36)
[2024-03-13 08:52] LABS: Alanine Aminotransferase 125 U/L (7-40); Albumin 3.5 g/dL (3.2-4.8); Alkaline Phosphatase 55 U/L (46-116); Aspartate Aminotransferase 386 U/L (13-40)
[2024-03-13 08:53] LABS: Anion Gap 11 (5-15); BUN/Creatinine Ratio 15.4 (10.0-20.0); Bilirubin, Total 0.9 mg/dL (0.2-1.0); Blood Urea Nitrogen 8 mg/dL (9-23); Calcium 8.3 mg/dL (8.7-10.4); Carbon Dioxide 23 mmol/L (20-31); Chloride 107 mmol/L (98-107); Glucose 56 mg/dL (74-106); Potassium 3.9 mmol/L (3.5-5.1); Sodium 141 mmol/L (136-145); Total Protein 5.7 g/dL (5.7-8.2)
[2024-03-13] MEDS ORDERED: LABETALOL HCL 20 MG/4 ML VL IV PRN (10:00)
[2024-03-13] MEDS ORDERED: AZITHROMYCIN 500MG/ 250ML 250 ML IV SCH (10:00)
[2024-03-13] MEDS: cefTRIAXone 1GM/50ML D5W 50 ML IV ONE (11:47)
[2024-03-13] MEDS: AZITHROMYCIN 500MG/ 250ML 250 ML IV SCH (12:04)
[2024-03-13 12:57] LABS: Folate (Folic Acid) 17.8 ng/mL (>5.38)
[2024-03-13] MEDS: chlordiazePOXIDE HCL 25 MG CAP PO SCH (13:06)
[2024-03-13] MEDS ORDERED: DIPH-753 PO (19:24)
[2024-03-13] MEDS ORDERED: ASPI-543 PO (19:24)
[2024-03-14] VITALS (12 sets, daily range): BP systolic 122–160; BP diastolic 60–94; PULSE 66–106; RESP 16–18; TEMP 97.5–98.9; O2SAT 92–99
[2024-03-14 07:10] LABS: Rapid Influenza A Negative (Negative); Rapid Influenza B Negative (Negative)
[2024-03-14 07:27] LABS: Basophils # (auto) 0 10 ^3/uL (0-0.2); Basophils % (auto) 0.4 % (0.0-2.0); Eosinophils # (auto) 0.2 10 ^3/uL (0-0.8); Eosinophils % (auto) 4.4 % (0.0-7.0); Hematocrit 39.2 % (41.0-53.0); Lymphocytes # (auto) 1.1 10 ^3/uL (0.4-5.4); Lymphocytes % (auto) 20.6 % (10.0-50.0); Mean Corpuscular Hemoglobin 31.6 pg (28.0-32.0); Mean Corpuscular Hgb Conc. 33.3 g/dL (32.0-36.0); Mean Corpuscular Volume 95.1 fL (80.0-100.0); Monocytes # (auto) 0.4 10 ^3/uL (0-1.3); Monocytes % (auto) 6.6 % (0.0-12.0); Neutrophils # (auto) 3.8 10 ^3/uL (1.6-8.6); Nucleated Red Blood Cells % 0.2 %; Platelet Count (auto) 102 10^3/uL (140-450); Red Blood Cells 4.12 10^6/uL (4.5-5.90); Red Cell Distribution Width 19.2 % (11.8-14.3); White Blood Cell 5.5 10^3/uL (4.4-10.8)
[2024-03-14 07:50] LABS: Alanine Aminotransferase 90 U/L (7-40); Albumin 3.2 g/dL (3.2-4.8); Alkaline Phosphatase 61 U/L (46-116); Anion Gap 5 (5-15); Aspartate Aminotransferase 181 U/L (13-40); BUN/Creatinine Ratio 13.7 (10.0-20.0); Bilirubin, Total 0.8 mg/dL (0.2-1.0); Blood Urea Nitrogen 7 mg/dL (9-23); Calcium 8.5 mg/dL (8.7-10.4); Carbon Dioxide 28 mmol/L (20-31); Chloride 104 mmol/L (98-107); Glucose 82 mg/dL (74-106); Potassium 3.8 mmol/L (3.5-5.1); Sodium 137 mmol/L (136-145)
[2024-03-14] MEDS: cefTRIAXone 1GM/50ML D5W 50 ML IV SCH (08:41)
[2024-03-14 09:12] LABS: COVID19 ANTIGEN SOFIA FIA NEGATIVE (NEGATIVE)
[2024-03-14] MEDS: ALBUTEROL SULF 2.5 MG/0.5ML(0.5%) NEB SOLN NEB SCH (18:29)
[2024-03-15] VITALS (16 sets, daily range): BP systolic 105–134; BP diastolic 64–81; PULSE 75–95; RESP 16–20; TEMP 97.5–98.6; O2SAT 94–100
[2024-03-15 12:25] LABS: Basophils # (auto) 0 10 ^3/uL (0-0.2); Basophils % (auto) 0.4 % (0.0-2.0); Eosinophils # (auto) 0.2 10 ^3/uL (0-0.8); Eosinophils % (auto) 3.9 % (0.0-7.0); Hematocrit 40.1 % (41.0-53.0); Hemoglobin 13.4 g/dL (13.5-17.5); Lymphocytes # (auto) 1.6 10 ^3/uL (0.4-5.4); Lymphocytes % (auto) 29.9 % (10.0-50.0); Mean Corpuscular Hgb Conc. 33.5 g/dL (32.0-36.0); Mean Corpuscular Volume 95.4 fL (80.0-100.0); Monocytes # (auto) 0.4 10 ^3/uL (0-1.3); Monocytes % (auto) 7.1 % (0.0-12.0); Neutrophils # (auto) 3.1 10 ^3/uL (1.6-8.6); Neutrophils % (auto) 58.7 % (37.0-80.0); Nucleated Red Blood Cells % 0.1 %; Platelet Count (auto) 102 10^3/uL (140-450); Red Cell Distribution Width 19.4 % (11.8-14.3); White Blood Cell 5.3 10^3/uL (4.4-10.8)
[2024-03-15 12:36] LABS: Chloride 105 mmol/L (98-107); Potassium 3.5 mmol/L (3.5-5.1); Sodium 142 mmol/L (136-145)
[2024-03-15 12:37] LABS: Anion Gap 7 (5-15); Carbon Dioxide 30 mmol/L (20-31)
[2024-03-15 12:38] LABS: Calcium 10.5 mg/dL (8.7-10.4)
[2024-03-15 12:42] LABS: BUN/Creatinine Ratio 7.8 (10.0-20.0); Blood Urea Nitrogen 5 mg/dL (9-23); Glucose 120 mg/dL (74-106)
[2024-03-16] VITALS (15 sets, daily range): BP systolic 109–147; BP diastolic 66–93; PULSE 61–113; RESP 14–20; TEMP 97.7–98.2; O2SAT 92–100
[2024-03-16 07:09] LABS: Anion Gap 4 (5-15); Calcium 9.5 mg/dL (8.7-10.4); Carbon Dioxide 32 mmol/L (20-31); Chloride 108 mmol/L (98-107); Potassium 4.3 mmol/L (3.5-5.1); Sodium 144 mmol/L (136-145)
[2024-03-16 07:13] LABS: Basophils # (auto) 0 10 ^3/uL (0-0.2); Basophils % (auto) 0.3 % (0.0-2.0); Eosinophils # (auto) 0.3 10 ^3/uL (0-0.8); Eosinophils % (auto) 5.9 % (0.0-7.0); Hematocrit 36.6 % (41.0-53.0); Hemoglobin 12.6 g/dL (13.5-17.5); Lymphocytes # (auto) 1.6 10 ^3/uL (0.4-5.4); Mean Corpuscular Hemoglobin 32.7 pg (28.0-32.0); Mean Corpuscular Hgb Conc. 34.5 g/dL (32.0-36.0); Mean Corpuscular Volume 94.9 fL (80.0-100.0); Monocytes # (auto) 0.5 10 ^3/uL (0-1.3); Monocytes % (auto) 8.5 % (0.0-12.0); Neutrophils # (auto) 3.4 10 ^3/uL (1.6-8.6); Neutrophils % (auto) 58.3 % (37.0-80.0); Platelet Count (auto) 101 10^3/uL (140-450); Red Blood Cells 3.86 10^6/uL (4.5-5.90); Red Cell Distribution Width 19.4 % (11.8-14.3); White Blood Cell 5.9 10^3/uL (4.4-10.8)
[2024-03-16 07:15] LABS: BUN/Creatinine Ratio 7.9 (10.0-20.0); Blood Urea Nitrogen 5 mg/dL (9-23); Glucose 97 mg/dL (74-106)
== END 2024-03-16 19:30 | disposition home or self-care (01) | DRG 137 ==
LOC: EDBD 14:47 → ER 14:49 → TELE 03-13 00:39 → TELE-WESTW 03-13 04:46
PROVIDERS: ADMIT Internal Medicine Geriatric Medicine; ATTEND Internal Medicine Geriatric Medicine
DX: J15.69 Pneumonia due to other Gram-negative bacteria (principal); K70.9 Alcoholic liver disease, unspecified; E86.0 Dehydration; J15.9 Unspecified bacterial pneumonia; Z20.822 Contact with and (suspected) exposure to COVID-19; E87.6 Hypokalemia; F10.129 Alcohol abuse with intoxication, unspecified; F10.139 Alcohol abuse with withdrawal, unspecified; F17.210 Nicotine dependence, cigarettes, uncomplicated; I10 Essential (primary) hypertension; R74.01 Elevation of levels of liver transaminase levels; Z79.899 Other long term (current) drug therapy; Z59.00 Homelessness unspecified; Y90.8 Blood alcohol level of 240 mg/100 ml or more
CPT/HCPCS: 36415; 70450; 71045; 80048; 80053; 80307; 80320; 81001; 82306; 82550; 82607; 82746; 83605; 83690; 83735; 84443; 84484; 85025; 87426; 87804; 93306; 94640; 97163; G0378

== ENCOUNTER 2024-06-04 08:09 | Inpatient (IN) | payer MEDICAID ==
[~2024-06-04] VITALS: Ht 170.2 cm; Wt 65.2 kg
[~2024-06-04 08:09] MED LIST changes: +ASPI-543 PO; +DIPH-753 PO
--- NOTE | 2024-06-04 10:04 | ED.PDOC ---
History of Present Illness HPI Comments 54Y M presents to ED via EMS for chief complaint weakness x1day. Additional symptoms include arm tingling, vision changes, dry mouth, nausea, vomiting, and poor appetite. Pt states he feels dehydrated and feels like he is losing consciousness. Pt says he drank 5 bottles of alcohol yesterday and has not eaten food in 7 days due to feeling full from the alcohol. Chief Complaint: Flu like Time Seen by MD: 09:54 Primary Care Provider: JACOBO Reviewed Notes: Nurses Notes, Medications, Allergies Allergies: Coded Allergies: NO KNOWN ALLERGIES (Unverified , 04/16/20) Home Meds Reported Medications Diphenhydramine Hcl (Diphenhydramine Hcl) 25 Mg Cap, 25 MG PO DAILYP PRN for ALCOHOL WITHDRAWAL SYMPTOMS, MG 03/13/24 Aspirin (Aspir-Low) 81 Mg Tab, 81 MG PO DAILY for 30 Days, MG 03/13/24 Alendronate Sodium (Alendronate Sodium) 70 Mg Tab, 1 TAB PO QWEEKLY 01/21/24 Information Source: Patient, Emergency Med Personnel Mode of Arrival: EMS Severity: Mild Timing: Hours Duration: Since onset Prehospital treatment: None Past Medical History PAST MEDICAL HISTORY: Anemia, Anxiety, Depression, HTN Surgical History: Denies all surgeries Family History Family History: Reviewed,noncontributory to illness, No family hx of HTN Social History Smoker: Cigarettes, Greater Than 1 Pack/Day Alcohol: Heavy Drugs: Denies Drug Use Lives In: Homeless Constitutional: reports: weakness; denies: chills, diaphoresis, fatigue, fever, malaise, sweats, others EENTM: reports: others (vision changes); denies: blurred vision, double vision, ear bleeding, ear discharge, ear drainage, ear pain, ear ringing, eye pain, eye redness, hearing loss, mouth pain, mouth swelling, nasal discharge, nose bleeding, nose congestion, nose pain, photophobia, tearing, throat pain, throat swelling, voice changes Respiratory: denies: cough, hemoptysis, orthopnea, SOB at rest, shortness of breath, SOB with excertion, stridor, wheezing, others Cardiovascular: denies: chest pain, dizzy spells, diaphoresis, Dyspnea on exertion, edema, irregular heart beat, left arm pain, lightheadedness, palpitations, PND, syncope, others Gastrointestinal: reports: nausea, poor appetite, vomiting; denies: abdomen distended, abdominal pain, blood streaked bowels, constipated, diarrhea, dysphagia, difficulty swallowing, hematemesis, melena, poor fluid intake, rectal bleeding, rectal pain, others Genitourinary: denies: burning, dysuria, flank pain, frequency, hematuria, incontinence, penile discharge, penile sore, pain, testicle pain, testicle swelling, urgency, others Neurological: reports: tingling; denies: dizziness, fainting, headache, left sided numbness, left sided weakness, numbness, paresthesia, pre-existing deficit, right sided numbness, right sided weakness, seizure, speech problems, tremors, weakness, others Musculoskeletal: denies: back pain, gout, joint pain, joint swelling, muscle pain, muscle stiffness, neck pain, others Integumetry: denies: bruises, change in color, change in hair/nails, dryness, laceration, lesions, lumps, rash, wounds, others Allergic/Immunocompromised: denies: Difficulty Healing, Frequent Infections, Hives, Itching, others Hematologic/Lymphatic: denies: anemia, blood clots, easy bleeding, easy bruising, swollen glands, others Endocrine: denies: excessive hunger, excessive sweating, excessive thirst, excessive urination, flushing, intolerance to cold, intolerance to heat, unex plained weight gain, unexplained weight loss, others Psychiatric: denies: anxiety, bipolar disorder, depression, hopeless, panic disorder, schizophrenia, sleepless, suicidal, others All Other Systems: Reviewed and Negative Physical Exam General Appearance: No Apparent Distress, Normal HEENT: Normal ENT Inspection, Pharynx Normal, TMs Normal Neck: Full Range of Motion, Non-Tender, Normal, Normal Inspection Respiratory: Chest Non-Tender, Lungs Clear, No Accessory Muscle Use, No Respiratory Distress, Normal Breath Sounds Cardiovascular: No Edema, No JVD, No Murmur, No Gallop, Normal Peripheral Puls es, Regular Rate/Rhythm Breast Exam: Deferred Gastrointestinal: No Organomegaly, Non Tender, No Pulsatile Mass, Normal Bowel Sounds, Soft Genitalia: Deferred Pelvic: Deferred Rectal: Deferred Extremities: No calf tenderness, Normal capillary refill, Normal inspection, Normal range of motion, Non-tender, No pedal edema Musculoskeletal : Apperance: Normal Neurologic: Alert, mechanic field service II-XII nml as Tested, No Motor Deficits, Normal Affect, Normal Mood, No Sensory Deficits Cerebellar Function: NOT DONE Reflexes: NOT DONE Skin: Dry, Normal Color, Warm Lymphatic: No Adenopathy Was a procedure done? Was a procedure done?: No Differential Dx Considerations may include: Alcohol withdrawal, viral syndrome, alcoholic gastritis, X-Ray, Labs, Meds, VS Vital Signs Date Time Temp Pulse Resp B/P (MAP) Pulse Ox O2 Delivery O2 Flow Rate FiO2 06/04/24 10:25 92 20 99 Room Air* 0 21 06/04/24 10:12 96.3 92 20 134/89 (104) 99 96.3 06/04/24 08:15 98.7 100 18 152/79 (103) 98 Lab Test 06/04/24 11:30 06/04/24 10:20 06/04/24 10:03 Range/Units Troponin I High Sensitivity Pending < 3 L </=54 ng/L White Blood Count 11.9 H 4.4-10.8 10^3/uL Red Blood Count 4.42 L 4.5-5.90 10^6/uL Hemoglobin 14.4 13.5-17.5 g/dL Hematocrit 42.6 41.0-53.0 % Mean Corpuscular Volume 96.4 80.0-100.0 fL Mean Corpuscular Hemoglobin 32.6 H 28.0-32.0 pg Mean Corpuscular Hemoglobin Concent 33.8 32.0-36.0 g/dL Red Cell Distribution Width 18.2 H 11.8-14.3 % Platelet Count 214 140-450 10^3/uL Mean Platelet Volume 8.6 6.9-10.8 fL Neutrophils (%) (Auto) 87.2 H 37.0-80.0 % Lymphocytes (%) (Auto) 7.7 L 10.0-50.0 % Monocytes (%) (Auto) 4.8 0.0-12.0 % Eosinophils (%) (Auto) 0.0 0.0-7.0 % Basophils (%) (Auto) 0.3 0.0-2.0 % Neutrophils # (Auto) 10.4 H 1.6-8.6 10 ^3/uL Lymphocytes # (Auto) 0.9 0.4-5.4 10 ^3/uL Monocytes # (Auto) 0.6 0-1.3 10 ^3/uL Eosinophils # (Auto) 0 0-0.8 10 ^3/uL Basophils # (Auto) 0 0-0.2 10 ^3/uL Nucleated Red Blood Cells 0.0 % Sodium Level 137 136-145 mmol/L Potassium Level 3.9 3.5-5.1 mmol/L Chloride Level 100 98-107 mmol/L Carbon Dioxide Level 20 20-31 mmol/L Anion Gap 17 H 5-15 Blood Urea Nitrogen 19 9-23 mg/dL Creatinine 0.79 0.700-1.30 mg/dL Glomerular Filtration Rate Calc 106 >90 mL/min BUN/Creatinine Ratio 24.1 H 10.0-20.0 Serum Glucose 127 H 74-106 mg/dL Calcium Level 9.3 8.7-10.4 mg/dL Total Bilirubin 1.5 H 0.2-1.0 mg/dL Aspartate Amino Transferase (AST) 214 H 13-40 U/L Alanine Aminotransferase (ALT) 212 H 7-40 U/L Alkaline Phosphatase 61 46-116 U/L Total Protein 6.3 5.7-8.2 g/dL Albumin 4.2 3.2-4.8 g/dL Plasma/Serum Blood Alcohol < 3.0 <10 mg/dL Influenza Type A Antigen Pending Influenza Type B Antigen Pending SARS-CoV-2 Antigen (Rapid) Pending Current Medications Medications (Trade) Dose Ordered Sig/Rick Route Start Time Stop Time Status Last Admin Sodium Chloride 1,000 ml @ 1,000 mls/hr Q1H ONCE IV 06/04/24 10:00 06/04/24 10:59 DC 06/04/24 10:10 Ondansetron HCl (Zofran) 4 mg ONCE ONCE IV 06/04/24 10:00 06/04/24 10:01 DC 06/04/24 10:20 Pantoprazole Sodium (Protonix) 40 mg ONCE ONCE IV 06/04/24 10:00 06/04/24 10:01 DC 06/04/24 10:[address] [address] Ph: [phone] DIAGNOSTIC IMAGING Diagnostic Imaging Report : [id number] Signed PATIENT: DALTON MANCINI KAT: [id number] UNIT: [id number] : 1970 LOC: ER ROOM / BED: / AGE / SEX: 54 / M ADM STATUS: REG ER SERVICE [id number] ORDERING PHYSICIAN: LISA REYNOLDS MD PROCEDURE(s): CXRP - CHEST PORTABLE REASON: chest pain ORDER NUMBER(s): [id number], ACCESSION NUMBER(s): [id number] CHEST RADIOGRAPH Indication: chest pain Technique: Single frontal view of the chest was obtained COMPARISON: XY CHEST PORTABLE on DOS: 03/12/24, XY CHEST XRAY 1 VIEW on DOS: 01/20/24, CHEST PORTABLE on DOS: 04/19/20, CHEST XRAY 1 VIEW on DOS: 04/16/20 FINDINGS: Lines and Tubes: None Lungs: Clear Pleura: No effusion. No pneumothorax. Cardiomediastinal contours: Unremarkable Bones: Unremarkable IMPRESSION: No acute disease. ATED BY: TONNY KEYES MD DICTATED DATE/TIME: 06/04/24 104 SIGNED BY: TONNY KEYES MD SIGNED DATE/TIME: 06/04/24 104 CC: Time of 1ST Reevaluation: 10:24 Reevaluation 1ST: Unchanged Patient Education/Counseling: Diagnosis, Treatment Family Education/Counseling: No Family Present Departure 1 Departure Time of Disposition: 11:57 (Patient with concern for alcoholic withdrawal. We will give patient benzos and admit patient for further workup) Impression: Primary Impression: Alcohol withdrawal Qualified Codes: F10.931 - Alcohol use, unspecified with withdrawal delirium Additional Impressions: Epigastric pain Alcoholic gastritis Qualified Codes: K29.20 - Alcoholic gastritis without bleeding Disposition: ADMITTED INPATIENT Admit to: Med Surg Condition: Serious Critical Care Note Critical Care Time?: No Stability Stability form required: No Heart Score Heart Score: Heart Score Response (Comments) Value History N/A 0 EKG N/A 0 Age N/A 0 Risk Factors N/A 0 Troponin N/A 0 Total 0 I personally scribed for LISA REYNOLDS MD ([email or web address]) on 06/04/24 at 10:04. Elec tronically submitted by [facility] ([email or web address]). I personally scribed for LISA REYNOLDS MD ([email or web address]) on 06/04/24 at 10:45. Electronically submitted by [facility] ([email or web address]). LISA REYNOLDS MD Jun 04, 2024 10:04
[2024-06-04] MEDS: SODIUM CHLORIDE 0.9% 1,000 ML IV ONE (10:10)
[2024-06-04] MEDS: PANTOPRAZOLE 40 MG/10 ML VIAL INJ IV ONE (10:20)
[2024-06-04] MEDS: ONDANSETRON HCL 4 MG/2 ML VIAL IV ONE (10:20)
[2024-06-04 10:25] VITALS: PULSE 92; RESP 20; O2SAT 99
--- NOTE | 2024-06-04 10:43 | DVH ---
CHEST RADIOGRAPH Indication: chest pain Technique: Single frontal view of the chest was obtained COMPARISON: XY CHEST PORTABLE on DOS: 03/12/24, XY CHEST XRAY 1 VIEW on DOS: 01/20/24, CHEST PORTABLE on DOS: 04/19/20, CHEST XRAY 1 VIEW on DOS: 04/16/20 FINDINGS: Lines and Tubes: None Lungs: Clear Pleura: No effusion. No pneumothorax. Cardiomediastinal contours: Unremarkable Bones: Unremarkable IMPRESSION: No acute disease.
[2024-06-04 11:13] LABS: Basophils # (auto) 0 10 ^3/uL (0-0.2); Basophils % (auto) 0.3 % (0.0-2.0); Eosinophils # (auto) 0 10 ^3/uL (0-0.8); Hematocrit 42.6 % (41.0-53.0); Hemoglobin 14.4 g/dL (13.5-17.5); Lymphocytes # (auto) 0.9 10 ^3/uL (0.4-5.4); Lymphocytes % (auto) 7.7 % (10.0-50.0); Mean Corpuscular Hemoglobin 32.6 pg (28.0-32.0); Mean Corpuscular Hgb Conc. 33.8 g/dL (32.0-36.0); Mean Corpuscular Volume 96.4 fL (80.0-100.0); Monocytes # (auto) 0.6 10 ^3/uL (0-1.3); Monocytes % (auto) 4.8 % (0.0-12.0); Neutrophils # (auto) 10.4 10 ^3/uL (1.6-8.6); Neutrophils % (auto) 87.2 % (37.0-80.0); Platelet Count (auto) 214 10^3/uL (140-450); Red Blood Cells 4.42 10^6/uL (4.5-5.90); Red Cell Distribution Width 18.2 % (11.8-14.3); White Blood Cell 11.9 10^3/uL (4.4-10.8)
[2024-06-04 11:15] LABS: Albumin 4.2 g/dL (3.2-4.8); Alkaline Phosphatase 61 U/L (46-116); Anion Gap 17 (5-15); BUN/Creatinine Ratio 24.1 (10.0-20.0); Blood Urea Nitrogen 19 mg/dL (9-23); Calcium 9.3 mg/dL (8.7-10.4); Carbon Dioxide 20 mmol/L (20-31); Chloride 100 mmol/L (98-107); Potassium 3.9 mmol/L (3.5-5.1); Sodium 137 mmol/L (136-145)
[2024-06-04 11:16] LABS: Total Protein 6.3 g/dL (5.7-8.2)
[2024-06-04 11:29] LABS: Alanine Aminotransferase 212 U/L (7-40); Aspartate Aminotransferase 214 U/L (13-40); Bilirubin, Total 1.5 mg/dL (0.2-1.0); Glucose 127 mg/dL (74-106)
[2024-06-04 11:30] LABS: Blood Alcohol < 3.0 mg/dL (<10)
[2024-06-04 12:11] LABS: COVID19 ANTIGEN SOFIA FIA NEGATIVE (NEGATIVE); Rapid Influenza A Negative (Negative); Rapid Influenza B Negative (Negative)
[2024-06-04] MEDS: chlordiazePOXIDE HCL 25 MG CAP PO ONE (12:25)
[2024-06-04] MEDS: LORazepam 2MG/ML-1ML VIAL IV ONE (12:27)
[2024-06-04] MEDS ORDERED: LORazepam 2MG/ML-1ML VIAL IV PRN (13:15)
[2024-06-04] MEDS ORDERED: DOCUSATE SOD 100 MG CAP PO PRN (13:15)
[2024-06-04] MEDS ORDERED: ACETAMINOPHEN 325 MG TAB PO PRN (13:15)
[2024-06-04] MEDS ORDERED: ONDANSETRON HCL 4 MG/2 ML VIAL IV PRN (13:15)
[2024-06-04] MEDS ORDERED: HYDROcodone-ACET 5/325MG TAB PO PRN (13:15)
--- NOTE | 2024-06-04 13:21 | DVHHP2 ---
Admitting Diagnosis: Alcohol withdrawal History of Present Illness 54Y M presents to ED via EMS for chief complaint weakness x1day. Additional symptoms include arm tingling, vision changes, dry mouth, nausea, vomiting, and poor appetite. Pt states he feels dehydrated and feels like he is losing consciousness. Pt says he drank 5 bottles of alcohol yesterday and has not eaten food in 7 days due to feeling full from the alcohol. PAST MEDICAL HISTORY: Anemia, Anxiety, Depression, HTN Surgical History: Denies all surgeries Family History: Reviewed,noncontributory to illness, No family hx of HTN Social History Smoker: Cigarettes, Greater Than 1 Pack/Day Alcohol: Heavy Drugs: Denies Drug Use Lives In: Homeless Patient Family History: Graves' disease Allergies: Coded Allergies: NO KNOWN ALLERGIES (Unverified , 04/16/20) Home Meds Reported Medications Diphenhydramine Hcl (Diphenhydramine Hcl) 25 Mg Cap, 25 MG PO DAILYP PRN for ALCOHOL WITHDRAWAL SYMPTOMS, MG 03/13/24 Aspirin (Aspir-Low) 81 Mg Tab, 81 MG PO DAILY for 30 Days, MG 03/13/24 Alendronate Sodium (Alendronate Sodium) 70 Mg Tab, 1 TAB PO QWEEKLY 01/21/24 Current Medications Current Medications Medications (Trade) Dose Ordered Sig/Rick Route PRN Reason Start Time Stop Time Status Last Admin Sodium Chloride (Saline Lock Ns) 10 ml Q8HR IV 06/04/24 14:00 UNV Docusate Sodium (Colace Capsule) 100 mg BIDPRN PRN PO FOR CONSTIPATION 06/04/24 13:15 UNV Acetaminophen (Tylenol Tablet) 650 mg Q6HP PRN PO PAIN SCALE 1-3 OR TEMP>100.4 06/04/24 13:15 UNV Acetaminophen/ Hydrocodone Bitart ([place] 5/325MG Tab) 1 tab Q4HP PRN PO MODERATE PAIN (4-6 PAIN SCALE) 06/04/24 13:15 UNV Ondansetron HCl (Zofran) 4 mg Q4HP PRN IV NAUSEA / VOMITING 06/04/24 13:15 UNV Enoxaparin Sodium (Lovenox) 40 mg DAILY SC 06/05/24 10:00 UNV Pantoprazole Sodium (Protonix) 40 mg DAILY IV 06/05/24 10:00 UNV Thiamine HCl 100 mg DAILY PO 06/05/24 10:00 UNV Folic Acid 1 mg DAILY PO 06/05/24 10:00 UNV Multivitamins (Mvi Tab) 1 tab DAILY PO 06/05/24 10:00 UNV Lorazepam (Ativan Inj) 1 mg Q2HPRN PRN IV ETOH-SEE PROTOCOL 06/04/24 13:15 UNV Vital Signs Vital Signs Date Time Temp Pulse Resp B/P (MAP) Pulse Ox O2 Delivery O2 Flow Rate FiO2 06/04/24 12:16 90 18 154/94 (114) 100 06/04/24 10:25 Room Air* 0 21 06/04/24 10:12 96.3 96.3 Physical Exam Generally 54 years old male, well nourished well developed. No apparent distress HEENT-atraumatic normocephalic Heart-regular rate and rhythm Lungs clear to auscultate bilaterally Abdomen soft nontender nondistended Musculoskeletal-no edema cyanosis. Neuro-AO x3, tremors bilateral extremity upper, no focal deficits Results Labs Test 06/04/24 11:30 06/04/24 10:20 06/04/24 10:03 Range/Units Troponin I High Sensitivity 3 L </=54 ng/L White Blood Count 11.9 H 4.4-10.8 10^3/uL Red Blood Count 4.42 L 4.5-5.90 10^6/uL Hemoglobin 14.4 13.5-17.5 g/dL Hematocrit 42.6 41.0-53.0 % Mean Corpuscular Volume 96.4 80.0-100.0 fL Mean Corpuscular Hemoglobin 32.6 H 28.0-32.0 pg Mean Corpuscular Hemoglobin Concent 33.8 32.0-36.0 g/dL Red Cell Distribution Width 18.2 H 11.8-14.3 % Platelet Count 214 140-450 10^3/uL Mean Platelet Volume 8.6 6.9-10.8 fL Neutrophils (%) (Auto) 87.2 H 37.0-80.0 % Lymphocytes (%) (Auto) 7.7 L 10.0-50.0 % Monocytes (%) (Auto) 4.8 0.0-12.0 % Eosinophils (%) (Auto) 0.0 0.0-7.0 % Basophils (%) (Auto) 0.3 0.0-2.0 % Neutrophils # (Auto) 10.4 H 1.6-8.6 10 ^3/uL Lymphocytes # (Auto) 0.9 0.4-5.4 10 ^3/uL Monocytes # (Auto) 0.6 0-1.3 10 ^3/uL Eosinophils # (Auto) 0 0-0.8 10 ^3/uL Basophils # (Auto) 0 0-0.2 10 ^3/uL Nucleated Red Blood Cells 0.0 % Sodium Level 137 136-145 mmol/L Potassium Level 3.9 3.5-5.1 mmol/L Chloride Level 100 98-107 mmol/L Carbon Dioxide Level 20 20-31 mmol/L Anion Gap 17 H 5-15 Blood Urea Nitrogen 19 9-23 mg/dL Creatinine 0.79 0.700-1.30 mg/dL Glomerular Filtration Rate Calc 106 >90 mL/min BUN/Creatinine Ratio 24.1 H 10.0-20.0 Serum Glucose 127 H 74-106 mg/dL Calcium Level 9.3 8.7-10.4 mg/dL Total Bilirubin 1.5 H 0.2-1.0 mg/dL Aspartate Amino Transferase (AST) 214 H 13-40 U/L Alanine Aminotransferase (ALT) 212 H 7-40 U/L Alkaline Phosphatase 61 46-116 U/L Total Protein 6.3 5.7-8.2 g/dL Albumin 4.2 3.2-4.8 g/dL Plasma/Serum Blood Alcohol < 3.0 <10 mg/dL Influenza Type A Antigen Negative Negative Influenza Type B Antigen Negative Negative SARS-CoV-2 Antigen (Rapid) Negative NEGATIVE Primary Diagnosis Alcohol withdrawal Plan Uncontrolled yesterday. Patient feels tremors IV fluids 150 cc LR for hydration Antiemetic Ultrasound abdomen to evaluate for biliary obstruction Alcohol withdrawal protocol. Thiamine folate and multivitamin supplement Ativan per CIWA score Daily CIWA scores Aspiration precaution Full code Regular diet Heparin for DVT prophylaxis PPI for GI prophylaxis Plan discussed with: Patient Problems List: (1) ETOH abuse Status: Acute (2) Alcohol withdrawal Status: Acute Date of Service: Jun 04, 2024 Billing Provider: SHILOH MAJOR MD Common Visit Codes: [id number] INP/OBS CARE (HIGH) SHILOH MAJOR MD Jun 04, 2024 13:21
[2024-06-04] MEDS: LACTATED RINGER'S 1,000 ML IV ONE (15:56)
[2024-06-04] MEDS: SODIUM CHLOR 0.9% PF (SALINE LOCK) 10ML VIAL/SYR IV SCH (15:56)
--- NOTE | 2024-06-04 16:44 | DVH ---
INDICATION: eval for elevated lft r/o obstruction TECHNIQUE: Multiple real-time sonographic images were obtained of the right upper quadrant. COMPARISON: None FINDINGS: The liver demonstrates homogeneous echotexture without focal mass lesions. The liver measu res 16 cm. There is no intrahepatic or extrahepatic ductal dilatation. The common duct measures 0.4 cm. The gallbladder is without evidence of stone or sludge. The gallbladder wall measures 0.2 cm and is within normal limits. The right kidney measures 11 cm. The right kidney is normal in contour, size, and shape. The echoge nicity is normal. There is no hydronephrosis. The pancreas is not well visualized due to overlying bowel gas. IMPRESSION: 1. Unremarkable right upper quadrant sonogram.
[2024-06-04 18:04] LABS: Basophils # (auto) 0 10 ^3/uL (0-0.2); Basophils % (auto) 0.2 % (0.0-2.0); Eosinophils # (auto) 0 10 ^3/uL (0-0.8); Eosinophils % (auto) 0.1 % (0.0-7.0); Hematocrit 41.6 % (41.0-53.0); Hemoglobin 14.4 g/dL (13.5-17.5); Lymphocytes # (auto) 1.3 10 ^3/uL (0.4-5.4); Lymphocytes % (auto) 13.4 % (10.0-50.0); Mean Corpuscular Hemoglobin 33.4 pg (28.0-32.0); Mean Corpuscular Hgb Conc. 34.6 g/dL (32.0-36.0); Mean Corpuscular Volume 96.6 fL (80.0-100.0); Monocytes # (auto) 0.6 10 ^3/uL (0-1.3); Monocytes % (auto) 5.9 % (0.0-12.0); Neutrophils # (auto) 7.7 10 ^3/uL (1.6-8.6); Neutrophils % (auto) 80.4 % (37.0-80.0); Platelet Count (auto) 192 10^3/uL (140-450); Red Blood Cells 4.31 10^6/uL (4.5-5.90); Red Cell Distribution Width 17.9 % (11.8-14.3); White Blood Cell 9.5 10^3/uL (4.4-10.8)
[2024-06-04 22:42] VITALS: BP 133/89; PULSE 90; RESP 20; TEMP 97.7; O2SAT 97
[2024-06-04 23:00] VITALS: BP 133/89; PULSE 90; RESP 20; TEMP 97.7; O2SAT 97
[2024-06-05] VITALS (7 sets, daily range): BP systolic 113–144; BP diastolic 60–90; PULSE 62–100; RESP 16–22; TEMP 97.7–98; O2SAT 95–100
[2024-06-05 06:42] LABS: Basophils # (auto) 0 10 ^3/uL (0-0.2); Basophils % (auto) 0.2 % (0.0-2.0); Eosinophils # (auto) 0.3 10 ^3/uL (0-0.8); Eosinophils % (auto) 3.9 % (0.0-7.0); Hematocrit 37.8 % (41.0-53.0); Hemoglobin 12.9 g/dL (13.5-17.5); Lymphocytes # (auto) 1.6 10 ^3/uL (0.4-5.4); Lymphocytes % (auto) 21.1 % (10.0-50.0); Mean Corpuscular Hgb Conc. 34.1 g/dL (32.0-36.0); Mean Corpuscular Volume 96.8 fL (80.0-100.0); Monocytes # (auto) 0.5 10 ^3/uL (0-1.3); Monocytes % (auto) 6.5 % (0.0-12.0); Neutrophils # (auto) 5.3 10 ^3/uL (1.6-8.6); Neutrophils % (auto) 68.3 % (37.0-80.0); Nucleated Red Blood Cells % 0.1 %; Platelet Count (auto) 159 10^3/uL (140-450); Red Blood Cells 3.91 10^6/uL (4.5-5.90); Red Cell Distribution Width 17.7 % (11.8-14.3); White Blood Cell 7.8 10^3/uL (4.4-10.8)
[2024-06-05 07:00] LABS: Anion Gap 8 (5-15)
[2024-06-05 07:03] LABS: Calcium 9.3 mg/dL (8.7-10.4); Carbon Dioxide 28 mmol/L (20-31); Chloride 105 mmol/L (98-107); Potassium 3.5 mmol/L (3.5-5.1); Sodium 141 mmol/L (136-145)
[2024-06-05 07:05] LABS: Albumin 3.6 g/dL (3.2-4.8); Alkaline Phosphatase 63 U/L (46-116); Blood Urea Nitrogen 20 mg/dL (9-23); Glucose 92 mg/dL (74-106); Magnesium 1.9 mg/dL (1.6-2.6)
[2024-06-05 07:24] LABS: Alanine Aminotransferase 150 U/L (7-40); Aspartate Aminotransferase 132 U/L (13-40); Total Protein 5.4 g/dL (5.7-8.2)
[2024-06-05 07:39] LABS: Bilirubin, Total 1.4 mg/dL (0.2-1.0)
[2024-06-05] MEDS: ENOXAPARIN SOD 40 MG/0.4 ML SYRINGE SC SCH (10:00)
[2024-06-05] MEDS ORDERED: PANTOPRAZOLE 40 MG/10 ML VIAL INJ IV SCH (10:00)
[2024-06-05] MEDS ORDERED: THIAMINE HCL 100 MG TAB PO SCH (10:00)
[2024-06-05] MEDS: PANTOPRAZOLE 40 MG/10 ML VIAL INJ IV SCH (11:39)
[2024-06-05] MEDS: FOLIC ACID 1 MG TAB PO SCH (11:40)
[2024-06-05] MEDS: THIAMINE HCL 100 MG TAB PO ONE ×2 (11:40→12:21)
[2024-06-05] MEDS: MULTIPLE VITAMIN TAB PO SCH (11:40)
[2024-06-05 16:04] LABS: Urine Bacteria FEW /hpf (None Seen); Urine Blood Negative /uL (Negative); Urine Clarity Clear (Clear); Urine Color Yellow (Yellow); Urine Mucus FEW (None Seen); Urine Protein, UAD TRACE (Negative); Urine Specific Gravity 1.035 (1.001-1.035); Urine Squamous Epithelial Cell FEW /hpf (<5); Urine Urobilinogen 2 mg/dL (Negative); Urine WBC 2 /hpf (0 - 3); Urine pH 6.5 (5.0-9.0)
[2024-06-05 16:18] LABS: Amphetamine Screen, Urine Neg (NEGATIVE); Barbiturate Scree,Urine Neg (NEGATIVE); Benzodiazephine Screen, Urine Pos (NEGATIVE); Cannabinoid Screen, Urine Neg (NEGATIVE); Cocaine Screen, Urine Neg (NEGATIVE); Opiate Scree,Urine Neg (NEGATIVE); Phencyclidine Screen, Urine Neg (NEGATIVE)
[2024-06-05] MEDS: cefTRIAXone 1GM/50ML D5W 50 ML IV ONE (17:30)
--- NOTE | 2024-06-05 20:42 | DVHPN2 ---
Subjective 06/05 - This afternoon patient is still having tremors, tremulous, tangential speech, but appears to be A&O times 3. No aggressive behavior are agitation. We will need few more doses of benzos taper. Reviewed: H&P Changes from previous H/P or p: No Changes General: Per HPI Objective Vitals Vital Signs Date Time Temp Pulse Resp B/P (MAP) Pulse Ox O2 Delivery O2 Flow Rate FiO2 06/05/24 15:30 97.9 100 20 144/80 (101) 100 97.9 06/05/24 08:00 Room Air* 0 21 Intake/Output Intake and Output 06/05/24 07:00 Intake Total 1480 ml Output Total 200 ml Balance 1280 ml Intake Oral 480 ml IV Total 1000 ml Output Urine Total 200 ml Exam GEN: Healthy appearing, well-developed, mild distress and anxious, tremulous HEENT: NC/AT; MMM. CV: RRR, no m/r/g. LUNGS: CTAB, no w/r/c. ABD: Soft, NT/ND, NBS, no masses or organomegaly. EXT: skin Warm, well perfused. no rashes. No clubbing, cyanosis, or edema. NEURO: Ambulating with no limitations. No focal deficits. CIWA score approximately 6. Medications Current Medications Medications Dose Ordered Sig/Rick Route Start Time Stop Time Status Last Admin Dose Admin Sodium Chloride 10 ml Q8HR IV 06/04/24 14:00 06/05/24 14:00 10 ML Docusate Sodium 100 mg BIDPRN PRN PO 06/04/24 13:15 Acetaminophen 650 mg Q6HP PRN PO 06/04/24 13:15 Acetaminophen/ Hydrocodone Bitart 1 tab Q4HP PRN PO 06/04/24 13:15 Ondansetron HCl 4 mg Q4HP PRN IV 06/04/24 13:15 Enoxaparin Sodium 40 mg DAILY SC 06/05/24 10:00 Folic Acid 1 mg DAILY PO 06/05/24 10:06/05/24 11:40 1 MG Multivitamins 1 tab DAILY PO 06/05/24 10:00 06/05/24 11:40 1 TAB Lorazepam 1 mg Q2HPRN PRN IV 06/04/24 13:15 Pantoprazole Sodium 40 mg DAILY IV 06/05/24 10:00 06/05/24 11:39 40 MG Thiamine HCl 100 mg DAILY PO 06/06/24 10:00 06/09/24 11:00 Ceftriaxone Sodium 50 ml @ 100 mls/hr DAILY@09 IV 06/06/24 09:00 Laboratory Results Laboratory Tests 06/05/24 05:45 Chemistry Test 06/05/24 05:45 Albumin 3.6 g/dL (3.2-4.8) Calcium Level 9.3 mg/dL (8.7-10.4) Magnesium Level 1.9 mg/dL (1.6-2.6) Total Protein 5.4 g/dL (5.7-8.2) L LFT Test 06/05/24 05:45 Alanine Aminotransferase (ALT) 150 U/L (7-40) H Alkaline Phosphatase 63 U/L (46-116) Aspartate Amino Transferase (AST) 132 U/L (13-40) H Total Bilirubin 1.4 mg/dL (0.2-1.0) H Urinalysis Test 06/05/24 15:10 Urine Color Yellow (Yellow) Urine Clarity Clear (Clear) Urine pH 6.5 (5.0-9.0) Urine Specific [place] 1.035 (1.001-1.035) Urine Protein Trace (Negative) H Urine Ketones 1+ (Negative) H Urine Blood Negative /uL (Negative) Urine Nitrite Negative (Negative) Urine Bilirubin Negative (Negative) Urine Urobilinogen 2 mg/dL (Negative) H Urine Leukocyte Esterase Negative /uL (Negative) Urine RBC 3 /hpf (0 - 3) Urine WBC 2 /hpf (0 - 3) Urine Squamous Epithelial Cells Few /hpf (<5) Urine Bacteria Few /hpf (None Seen) H Urine Mucus Few (None Seen) Urine Glucose Normal mg/dL (Normal) Labs and/or images reviewed: Labs reviewed by me, Image(s) reviewed by me Assessment/Plan Assessment/Plan 06/05 - This afternoon patient is still having tremors, tremulous, tangential speech, but appears to be A&O times 3. No aggressive behavior are agitation. We will need few more doses of benzos taper. #-alcohol withdrawal - alcohol level undetectable on admit, CIWA score elevated, started on fluids and CIWA protocol, aspiration precautions. IV fluids. Folate thiamine. # alcohol dependence-see above # alcohol gastritis -intractable nausea likely from acute alcohol gastritis. Resolving after fluids and Protonix # intractable low nausea, resolving # intravascular volume depletion -status post fluids # history depression and anxiety disorder Diet regular DVT prophylaxis with subQ heparin GI prophylaxis with PPI Med surge Full code Plan discussed with: Patient My Orders Orders - JEANETTE MICHELE MD Procedure Category Date Status Time Thyroid Stimulating LAB 06/06/24 Verified Hormone 04:00 Complete Blood Count LAB 06/06/24 Verified 04:00 Comprehensive LAB 06/06/24 Verified Metabolic Panel 04:00 Thiamine Tab PHA 06/06/24 In Process 10:00 Date of Service: Jun 05, 2024 Billing Provider: JEANETTE MICHELE MD Common Visit Codes: [id number] INP/OBS CARE(HIGH) JEANETTE MICHELE MD Jun 05, 2024 20:42
[2024-06-06 01:00] VITALS: BP_SYST 111; BP_SYST 130; BP_DIAS 67; BP_DIAS 74; PULSE 77; RESP 18; TEMP 97.5; O2SAT 96; O2SAT 97
[2024-06-06 05:00] VITALS: BP 108/52; PULSE 85; RESP 19; TEMP 98; O2SAT 93
[2024-06-06 06:16] LABS: Basophils # (auto) 0 10 ^3/uL (0-0.2); Basophils % (auto) 0.3 % (0.0-2.0); Eosinophils # (auto) 0.5 10 ^3/uL (0-0.8); Eosinophils % (auto) 8.6 % (0.0-7.0); Hematocrit 38.9 % (41.0-53.0); Hemoglobin 12.9 g/dL (13.5-17.5); Lymphocytes # (auto) 1.7 10 ^3/uL (0.4-5.4); Lymphocytes % (auto) 27.1 % (10.0-50.0); Mean Corpuscular Hemoglobin 32.3 pg (28.0-32.0); Mean Corpuscular Hgb Conc. 33.2 g/dL (32.0-36.0); Mean Corpuscular Volume 97.2 fL (80.0-100.0); Monocytes # (auto) 0.4 10 ^3/uL (0-1.3); Neutrophils # (auto) 3.6 10 ^3/uL (1.6-8.6); Nucleated Red Blood Cells % 0.2 %; Platelet Count (auto) 125 10^3/uL (140-450); Red Cell Distribution Width 17.8 % (11.8-14.3); White Blood Cell 6.3 10^3/uL (4.4-10.8)
[2024-06-06 06:30] LABS: Albumin 3.3 g/dL (3.2-4.8); Alkaline Phosphatase 93 U/L (46-116); Anion Gap 6 (5-15); Bilirubin, Total 0.5 mg/dL (0.2-1.0); Blood Urea Nitrogen 18 mg/dL (9-23); Calcium 9.2 mg/dL (8.7-10.4); Carbon Dioxide 29 mmol/L (20-31); Chloride 105 mmol/L (98-107); Magnesium 1.6 mg/dL (1.6-2.6); Potassium 4.3 mmol/L (3.5-5.1); Sodium 140 mmol/L (136-145)
[2024-06-06 06:31] LABS: Alanine Aminotransferase 108 U/L (7-40); Aspartate Aminotransferase 91 U/L (13-40); Glucose 108 mg/dL (74-106); Total Protein 5.1 g/dL (5.7-8.2)
[2024-06-06 07:50] VITALS: BP 116/80; PULSE 54; RESP 16; TEMP 98.7; O2SAT 94
[2024-06-06] MEDS: cefTRIAXone 1GM/50ML D5W 50 ML IV SCH (08:55)
[2024-06-06] MEDS: THIAMINE HCL 100 MG TAB PO SCH (09:08)
[2024-06-06] MEDS ORDERED: CYAN1TAB14 PO (10:47)
[2024-06-06] MEDS ORDERED: THIA100T26 PO (10:47)
[2024-06-06] MEDS ORDERED: FOLI400T15 PO (10:47)
--- NOTE | 2024-06-06 10:48 | DVHDS2 ---
Discharge Summary Date of Admission Jun 04, 2024 at 13:08 Date of Discharge: Jun 06, 2024 Labs/Diagnostic Data: Laboratory Results Test 06/06/24 05:35 06/05/24 15:10 06/04/24 13:07 06/04/24 10:20 White Blood Count 6.3 10^3/uL (4.4-10.8) Red Blood Count 4.00 10^6/uL (4.5-5.90) Hemoglobin 12.9 g/dL (13.5-17.5) Hematocrit 38.9 % (41.0-53.0) Mean Corpuscular Volume 97.2 fL (80.0-100.0) Mean Corpuscular Hemoglobin 32.3 pg (28.0-32.0) Mean Corpuscular Hemoglobin Concent 33.2 g/dL (32.0-36.0) Red Cell Distribution Width 17.8 % (11.8-14.3) Platelet Count 125 10^3/uL (140-450) Mean Platelet Volume 8.8 fL (6.9-10.8) Neutrophils (%) (Auto) 57.0 % (37.0-80.0) Lymphocytes (%) (Auto) 27.1 % (10.0-50.0) Monocytes (%) (Auto) 7.0 % (0.0-12.0) Eosinophils (%) (Auto) 8.6 % (0.0-7.0) Basophils (%) (Auto) 0.3 % (0.0-2.0) Neutrophils # (Auto) 3.6 10 ^3/uL (1.6-8.6) Lymphocytes # (Auto) 1.7 10 ^3/uL (0.4-5.4) Monocytes # (Auto) 0.4 10 ^3/uL (0-1.3) Eosinophils # (Auto) 0.5 10 ^3/uL (0-0.8) Basophils # (Auto) 0 10 ^3/uL (0-0.2) Nucleated Red Blood Cells 0.2 % Sodium Level 140 mmol/L (136-145) Potassium Level 4.3 mmol/L (3.5-5.1) Chloride Level 105 mmol/L (98-107) Carbon Dioxide Level 29 mmol/L (20-31) Anion Gap 6 (5-15) Blood Urea Nitrogen 18 mg/dL (9-23) Creatinine 0.75 mg/dL (0.700-1.30) Glomerular Filtration Rate Calc 107 mL/min (>90) BUN/Creatinine Ratio 24.0 (10.0-20.0) Serum Glucose 108 mg/dL (74-106) Calcium Level 9.2 mg/dL (8.7-10.4) Magnesium Level 1.6 mg/dL (1.6-2.6) Total Bilirubin 0.5 mg/dL (0.2-1.0) Aspartate Amino Transferase (AST) 91 U/L (13-40) Alanine Aminotransferase (ALT) 108 U/L (7-40) Alkaline Phosphatase 93 U/L (46-116) Total Protein 5.1 g/dL (5.7-8.2) Albumin 3.3 g/dL (3.2-4.8) Thyroid Stimulating Hormone (TSH) 1.33 uIU/mL (0.55-4.78) Urine Color Yellow (Yellow) Urine Clarity Clear (Clear) Urine pH 6.5 (5.0-9.0) Urine Specific [place] 1.035 (1.001-1.035) Urine Protein Trace (Negative) Urine Ketones 1+ (Negative) Urine Blood Negative /uL (Negative) Urine Nitrite Negative (Negative) Urine Bilirubin Negative (Negative) Urine Urobilinogen 2 mg/dL (Negative) Urine Leukocyte Esterase Negative /uL (Negative) Urine RBC 3 /hpf (0 - 3) Urine WBC 2 /hpf (0 - 3) Urine Squamous Epithelial Cells Few /hpf (<5) Urine Bacteria Few /hpf (None Seen) Urine Mucus Few (None Seen) Urine Glucose Normal mg/dL (Normal) Urine Opiates Screen Neg (NEGATIVE) Urine Fentanyl Screen Neg (NEGATIVE) Urine Barbiturates Screen Neg (NEGATIVE) Urine Phencyclidine Screen Neg (NEGATIVE) Urine Amphetamines Screen Neg (NEGATIVE) Urine Benzodiazepines Screen Pos (NEGATIVE) Urine Cocaine Screen Neg (NEGATIVE) Urine Cannabinoids Screen Neg (NEGATIVE) Troponin I High Sensitivity 3 ng/L (</=54) Plasma/Serum Blood Alcohol < 3.0 mg/dL (<10) Test 06/04/24 10:03 Influenza Type A Antigen Negative (Negative) Influenza Type B Antigen Negative (Negative) SARS-CoV-2 Antigen (Rapid) Negative (NEGATIVE) Other Laboratory Tests 06/06/24 05:35 Brief Hx & Hospital Course: 54Y M presents to ED via EMS for chief complaint weakness x1day. Additional symptoms include arm tingling, vision changes, dry mouth, nausea, vomiting, and poor appetite. Pt states he feels dehydrated and feels like he is losing consciousness. Pt says he drank 5 bottles of alcohol yesterday and has not eaten food in 7 days due to feeling full from the alcohol. On admit patient has negative alcohol level, feeling tremulous, CIWA score is elevated. Admitted for alcohol withdrawal. Patient is started on p.r.n. Ativan for CIWA protocol, aspiration precautions, given fluids, thiamine, folate. On day 2 patient remains to have tremulous signs NC was mildly elevated,. By day 3 patient is back to baseline tolerating p.o., ambulating. Safe for discharge with plan below. Diagnosis: alcohol withdrawal, alcohol abuse/alcohol dependence,; alkaline gastritis; intractable nausea and vomiting, resolving; intravascular volume depletion, resolved; history of depression and anxiety disorder : Discharge plan: - follow-up with occupational medicine to get driving clearance - detox for another week. 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 ok to drive regular car if feel stable. - continue other medication not mentioned above. Visitation and planning required 35 minutes Condition at Discharge: Fair Final Diagnosis/Problems List alcohol withdrawal, alcohol abuse/alcohol dependence,; alkaline gastritis; intractable nausea and vomiting, resolving; intravascular volume depletion, resolved; history of depression and anxiety disorder Discharge Disposition: Home Discharge Instruct/Medications Diet: Regular Activity: No Restrictions, As Tolerated Follow Up/Referral: PCP and occupational medicine Medications: as below Discharge Statement: "Patient was advised to return to the ER or call 911 if any headaches, dizziness, shortness of breath, chest pain, abdominal pain, bleeding, fevers, or worsening of medical condition. Patient was counseled about treatment plan, medications, possible side effects, patientverbalized understanding. All questions were answered to the best of my ability. This discharge took greater then 30 minutes in planning, reviewing documentation, counseling the patient, and discussing with other team members." ASSESSMENT ASSESSMENT Assessment alcohol withdrawal, alcohol abuse/alcohol dependence,; alkaline gastritis; intractable nausea and vomiting, resolving; intravascular volume depletion, resolved; history of depression and anxiety disorder Date of Service: Jun 06, 2024 Billing Provider: JEANETTE MICHELE MD Common Visit Codes: 26999-POR/OBS DISCH DAY >30min JEANETTE MICHELE MD Jun 06, 2024 10:48
[2024-06-06 12:02] VITALS: BP 128/80; PULSE 83; RESP 24; TEMP 97.8; O2SAT 99
[2024-06-06 12:34] VITALS: BP 128/80; PULSE 83; RESP 24; TEMP 97.8; O2SAT 99
== END 2024-06-06 13:15 | disposition home or self-care (01) | DRG 241 ==
LOC: EDBD 08:09 → EDUNIT# 08:09 → ER 08:09 → OVERFLOW 13:08 → CENTRAL 22:40
PROVIDERS: ADMIT Internal Medicine; ATTEND Student in an Organized Health Care Education/Training Program
DX: K29.20 Alcoholic gastritis without bleeding (principal); F10.231 Alcohol dependence with withdrawal delirium; I10 Essential (primary) hypertension; Z20.822 Contact with and (suspected) exposure to COVID-19; E80.6 Other disorders of bilirubin metabolism; F17.210 Nicotine dependence, cigarettes, uncomplicated; F10.229 Alcohol dependence with intoxication, unspecified; E86.9 Volume depletion, unspecified; Z59.00 Homelessness unspecified; Z79.899 Other long term (current) drug therapy; Y90.0 Blood alcohol level of less than 20 mg/100 ml
CPT/HCPCS: 36415; 71045; 76705; 80053; 80307; 80320; 81001; 83735; 84443; 84484; 85025; 87086; 87426; 87804; 96361; 96374; 96375; G0378; J2405; J2470

== ENCOUNTER 2024-06-19 08:54 | Emergency (ER) | payer MEDICAID ==
[~2024-06-19] VITALS: Ht 175.3 cm; Wt 62.7 kg
[~2024-06-19 08:54] MED LIST changes: +CYAN1TAB14 PO; +FOLI400T15 PO; +THIA100T26 PO
--- NOTE | 2024-06-19 09:45 | ED.PDOC ---
SOB-HPI HPI Comments 54 year old male presents to the ED with a chief complaint of shortness of breath onset 1 week. Patient states he began experiencing shortness of breath, productive cough with clear phlegm, nausea, vomiting, dizziness, sore throat, back pain for the past week. Patient also experienced fever and chills this is now resolved. Upon triage O2 sat was 98%. PMHx anemia, HTN, anxiety, depression. No other symptoms or modifying factors present at this time. Chief Complaint: Shortness of Breath Time Seen by MD: 09:30 Primary Care Provider: JACOBO Reviewed notes: Medications, Allergies Information Source: Patient Mode of Arrival: Ambulatory Severity: Moderate Timing: Weeks Duration: Since onset PE Risk Factors: None History of: Anxiety Prehospital treatment: None Modifying Factors: Nothing Associated Signs and Symptoms: Fever, Cough, Sore Throat Radiation: No Radiation If cough with SOB: Productive, Clear Past Medical History PAST MEDICAL HISTORY: Anemia, Anxiety, Depression, HTN Surgical History: Denies all surgeries Family History Family History: Reviewed,noncontributory to illness, No family hx of HTN Social History Smoker: Cigarettes, Greater Than 1 Pack/Day Alcohol: Heavy Drugs: Denies Drug Use Lives In: Homeless Constitutional: reports: chills, fever; denies: diaphoresis, fatigue, malaise, sweats, weakness, others EENTM: reports: throat pain; denies: blurred vision, double vision, ear bleeding, ear discharge, ear drainage, ear pain, ear ringing, eye pain, eye redness, hearing loss, mouth pain, mouth swelling, nasal discharge, nose bleeding, nose congestion, nose pain, photophobia, tearing, throat swelling, voice changes, others Respiratory: reports: cough, shortness of breath; denies: hemoptysis, orthopnea, SOB at rest, SOB with excertion, stridor, wheezing, others Cardiovascular: denies: chest pain, dizzy spells, diaphoresis, Dyspnea on exertion, edema, irregular heart beat, left arm pain, lightheadedness, palpitations, PND, syncope, others Gastrointestinal: reports: nausea, vomiting; denies: abdomen distended, abdominal pain, blood streaked bowels, constipated, diarrhea, dysphagia, difficulty swallowing, hematemesis, melena, poor appetite, poor fluid intake, rectal bleeding, rectal pain, others Genitourinary: denies: burning, dysuria, flank pain, frequency, hematuria, incontinence, penile discharge, penile sore, pain, testicle pain, testicle swelling, urgency, others Neurological: reports: dizziness; denies: fainting, headache, left sided numbness, left sided weakness, numbness, paresthesia, pre-existing deficit, right sided numbness, right sided weakness, seizure, speech problems, tingling, tremors, weakness, others Musculoskeletal: reports: back pain; denies: gout, joint pain, joint swelling, muscle pain, muscle stiffness, neck pain, others Integumetry: denies: bruises, change in color, change in hair/nails, dryness, laceration, lesions, lumps, rash, wounds, others Allergic/Immunocompromised: denies: Difficulty Healing, Frequent Infections, Hives, Itching, others Hematologic/Lymphatic: denies: anemia, blood clots, easy bleeding, easy bruising, swollen glands, others Endocrine: denies: excessive hunger, excessive sweating, excessive thirst, excessive urination, flushing, intolerance to cold, intolerance to heat, unexplained weight gain, unexplained weight loss, others Psychiatric: denies: anxiety, bipolar disorder, depression, hopeless, panic disorder, schizophrenia, sleepless, suicidal, others All Other Systems: Reviewed and Negative Physical Exam General Appearance: Mild Distress HEENT: Normal ENT Inspection, Pharynx Normal, TMs Normal Neck: Full Range of Motion, Non-Tender, Normal, Normal Inspection Respiratory: Chest Non-Tender, Lungs Clear, No Accessory Muscle Use, No Respiratory Distress, Normal Breath Sounds Cardiovascular: No Edema, No JVD, No Murmur, No Gallop, Normal Peripheral Pulses, Regular Rate/Rhythm Breast Exam: Deferred Gastrointestinal: No Organomegaly, Non Tender, No Pulsatile Mass, Normal Bowel Sounds, Soft Genitalia: Deferred Pelvic: Deferred Rectal: Deferred Extremities: No calf tenderness, Normal capillary refill, Normal inspection, Normal range of motion, Non-tender, No pedal edema 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 Was a procedure done?: No Differential Dx Differential Diagnosis: Anxiety, Dysrhythmia, Hyponatremia, Pneumonia, Sinusiti s, Pharyngitis, URI Comments Influenza a and B and COVID-19 X-Ray, Labs, Meds, VS Vital Signs Date Time Temp Pulse Resp B/P (MAP) Pulse Ox O2 Delivery O2 Flow Rate FiO2 06/19/24 14:52 98.3 73 18 150/85 (106) 97 98.3 06/19/24 12:13 98.2 71 16 141/91 (108) 97 98.2 06/19/24 10:15 97 06/19/24 09:55 Room Air* 0 21 06/19/24 09:47 98.9 91 18 144/98 (113) 98 98.9 06/19/24 09:47 91 18 96 Room Air 06/19/24 09:16 97 06/19/24 09:05 Room Air* 0 21 06/19/24 09:02 Room Air* 0 21 06/19/24 09:02 97.6 99 16 128/73 (91) 98 Lab Test 06/19/24 12:00 06/19/24 11:38 06/19/24 09:21 Range/Units Influenza Type A Antigen Negative Negative Influenza Type B Antigen Negative Negative SARS-CoV-2 Antigen (Rapid) Negative NEGATIVE Troponin I High Sensitivity < 3 L < 3 L </=54 ng/L White Blood Count 7.6 4.4-10.8 10^3/uL Red Blood Count 4.60 4.5-5.90 10^6/uL Hemoglobin 15.0 13.5-17.5 g/dL Hematocrit 44.1 41.0-53.0 % Mean Corpuscular Volume 95.9 80.0-100.0 fL Mean Corpuscular Hemoglobin 32.6 H 28.0-32.0 pg Mean Corpuscular Hemoglobin Concent 34.1 32.0-36.0 g/dL Red Cell Distribution Width 17.9 H 11.8-14.3 % Platelet Count 492 H 140-450 10^3/uL Mean Platelet Volume 7.8 6.9-10.8 fL Neutrophils (%) (Auto) 58.4 37.0-80.0 % Lymphocytes (%) (Auto) 25.1 10.0-50.0 % Monocytes (%) (Auto) 14.1 H 0.0-12.0 % Eosinophils (%) (Auto) 2.2 0.0-7.0 % Basophils (%) (Auto) 0.2 0.0-2.0 % Neutrophils # (Auto) 4.5 1.6-8.6 10 ^3/uL Lymphocytes # (Auto) 1.9 0.4-5.4 10 ^3/uL Monocytes # (Auto) 1.1 0-1.3 10 ^3/uL Eosinophils # (Auto) 0.2 0-0.8 10 ^3/uL Basophils # (Auto) 0 0-0.2 10 ^3/uL Nucleated Red Blood Cells 0.1 % Sodium Level 141 136-145 mmol/L Potassium Level 3.4 L 3.5-5.1 mmol/L Chloride Level 106 98-107 mmol/L Carbon Dioxide Level 26 20-31 mmol/L Anion Gap 9 5-15 Blood Urea Nitrogen 9 9-23 mg/dL Creatinine 0.86 0.700-1.30 mg/dL Glomerular Filtration Rate Calc 103 >90 mL/min BUN/Creatinine Ratio 10.5 10.0-20.0 Serum Glucose 99 74-106 mg/dL Calcium Level 10.2 8.7-10.4 mg/dL Magnesium Level 1.9 1.6-2.6 mg/dL Total Bilirubin 0.3 0.2-1.0 mg/dL Aspartate Amino Transferase (AST) 21 13-40 U/L Alanine Aminotransferase (ALT) 24 7-40 U/L Alkaline Phosphatase 91 46-116 U/L Total Protein 7.6 5.7-8.2 g/dL Albumin 4.7 3.2-4.8 g/dL Lipase 28 12-53 U/L Current Medications Medications (Trade) Dose Ordered Sig/Rick Route Start Time Stop Time Status Last Admin Sodium Chloride 1,000 ml @ 1,000 mls/hr Q1H ONCE IVB 06/19/24 09:45 06/19/24 10:44 DC 06/19/24 10:07 Ondansetron HCl (Zofran) 4 mg ONCE ONCE IV 06/19/24 09:45 06/19/24 09:46 DC 06/19/24 10:01 [facility] [id number] [id number] Ph: [phone] DIAGNOSTIC IMAGING Diagnostic Imaging Report : [id number] Signed PATIENT: DALTON MANCINIT: [id number] UNIT: [id number] : 1970 LOC: ER ROOM / BED: / AGE / SEX: 54 / M ADM STATUS: REG ER SERVICE [id number] ORDERING PHYSICIAN: LYNETTE GRIFFIN MD PROCEDURE(s): CXR2 - CHEST TWO VIEWS ROUTINE REASON: sob ORDER NUMBER(s): [id number], ACCESSION NUMBER(s): [id number] XY CHEST TWO VIEWS ROUTINE, HISTORY: sob COMPARISON: None None TECHNICAL DATA: 2 view of the chest was obtained. FINDINGS: Lines and tubes: None Cardiomediastinal silhouette: normal Pulmonary vasculature: normal Lung expansion: normal Lung airspace: normal Lung interstitium: normal Pleura: normal Pneumothorax: no Bones: Mild to moderate compression deformity of a mid thoracic vertebral body. Other: no IMPRESSION: No acute intrathoracic abnormality. Mild to moderate compression deformity of a mid thoracic vertebral body. ATED BY: LUIZ ISAAC MD DICTATED DATE/TIME: 06/19/241000 SIGNED BY: LUIZ ISAAC MD SIGNED DATE/TIME: 06/19/241000 CC: X-Ray, Labs, Meds, VS Comment Course in the emergency department eventful patient came in complaining of shortness of breath vomiting dizzy and cough for the past two weeks mostly the vomiting The chest x-ray is normal EKG shows normal sinus rhythm at 97 CBC normal CMP potassium of 3.4 the rest is normal Magnesium 1.9 Troponin less three and three Lipase 20 Influenza a negative Influenza B negative COVID-19 negative Patient will be discharged home to follow up with his PCP Time of 1ST Reevaluation: 10:00 Reevaluation 1ST: Unchanged Time of 2ND Reevaluation: 15:41 Reevaluation 2ND: Improved Consultation: PCP Patient Education/Counseling: Diagnosis, Treatment, Prognosis, Need For Follow Up Family Education/Counseling: Diagnosis, Treatment, Prognosis, Need For Follow Up, No Family Present Additional Information The following tests were ordered, and results were reviewed by me: EKG, TROP - x3, CBC, CMP, LIPASE, UA, MAGNESIUM, XY CHEST 2 VIEWS, COVID, RAPID INFLUENZA A&B I reviewed and agreed with the following test results read by other providers: XR CHEST 2 VIEWS I discussed treatment and results with medical personnel and: patient Departure 1 Departure Time of Disposition: 15:42 Impression: Primary Impression: Epigastric pain Additional Impressions: Alcohol abuse Alcoholic gastritis Qualified Codes: K29.20 - Alcoholic gastritis without bleeding Anxiety Dehydration Generalized weakness Disposition: HOME / SELF CARE / HOMELESS Condition: Fair Additional Instructions: Need to stop drinking alcohol Push fluids e-Prescriptions Prochlorperazine Maleate (Compazine) 10 Mg Tb 1 TAB PO TID for 10 Days, #30 TAB 3 Refills Prov: LYNETTE GRIFFIN MD 06/19/24 Omeprazole (Gnp Omeprazole) 20 Mg Tab 1 TAB PO BID for 10 Days, #20 TAB 1 Refill Prov: LYNETTE GRIFFIN MD 06/19/24 Aluminum Hydroxide-Mag Carb (Gaviscon Extra Strength) 1 Chw Chw 1 CHW PO QID for 10 Days, #40 TAB.CHEW Prov: LYNETTE GRIFFIN MD 06/19/24 Discharged With: Self Critical Care Note Critical Care Time?: No Stability Stability form required: No Heart Score Heart Score: Heart Score Response (Comments) Value History Slightly Suspicious 0 EKG Normal 0 Age 45-64 1 Risk Factors 1 or 2 risk factors 1 Troponin Normal limit 0 Total 2 I personally scribed for LYNETTE GRIFFIN MD ([email or web address]) on 06/19/24 at 09:45. Electronically submitted by Lamar Woodson ([email or web address]). I personally scribed for LYNETTE GRIFFIN MD ([email or web address]) on 06/19/24 at 12:31. Electronically submitted by Lamar Woodson ([email or web address]). I personally scribed for LYNETTE GRIFFIN MD ([email or web address]) on 06/19/24 at 12:33. Electronically submitted by Lamar Woodson ([email or web address]). LYNETTE GRIFFIN MD Jun 19, 2024 09:45
[2024-06-19] MEDS: ONDANSETRON HCL 4 MG/2 ML VIAL IV ONE (10:01)
--- NOTE | 2024-06-19 10:03 | DVH ---
XY CHEST TWO VIEWS ROUTINE, HISTORY: sob COMPARISON: None None TECHNICAL DATA: 2 view of the chest was obtained. FINDINGS: Lines and tubes: None Cardiomediastinal silhouette: normal Pulmonary vasculature: normal Lung expansion: normal Lung airspace: normal Lung interstitium: normal Pleura: normal Pneumothorax: no Bones: Mild to moderate compression deformity of a mid thoracic vertebral body. Other: no IMPRESSION: No acute intrathoracic abnormality. Mild to moderate compression deformity of a mid thoracic vertebral body.
[2024-06-19] MEDS: SODIUM CHLORIDE 0.9% 1,000 ML IVB ONE (10:07)
[2024-06-19 10:19] LABS: Basophils # (auto) 0 10 ^3/uL (0-0.2); Eosinophils # (auto) 0.2 10 ^3/uL (0-0.8); Nucleated Red Blood Cells % 0.1 %
[2024-06-19 10:21] LABS: Basophils % (auto) 0.2 % (0.0-2.0); Eosinophils % (auto) 2.2 % (0.0-7.0); Hematocrit 44.1 % (41.0-53.0); Lymphocytes # (auto) 1.9 10 ^3/uL (0.4-5.4); Lymphocytes % (auto) 25.1 % (10.0-50.0); Mean Corpuscular Hemoglobin 32.6 pg (28.0-32.0); Mean Corpuscular Hgb Conc. 34.1 g/dL (32.0-36.0); Mean Corpuscular Volume 95.9 fL (80.0-100.0); Monocytes # (auto) 1.1 10 ^3/uL (0-1.3); Monocytes % (auto) 14.1 % (0.0-12.0); Neutrophils # (auto) 4.5 10 ^3/uL (1.6-8.6); Neutrophils % (auto) 58.4 % (37.0-80.0); Platelet Count (auto) 492 10^3/uL (140-450); Red Cell Distribution Width 17.9 % (11.8-14.3); White Blood Cell 7.6 10^3/uL (4.4-10.8)
[2024-06-19 10:43] LABS: Alanine Aminotransferase 24 U/L (7-40); Albumin 4.7 g/dL (3.2-4.8); Alkaline Phosphatase 91 U/L (46-116); Anion Gap 9 (5-15); Aspartate Aminotransferase 21 U/L (13-40); BUN/Creatinine Ratio 10.5 (10.0-20.0); Bilirubin, Total 0.3 mg/dL (0.2-1.0); Blood Urea Nitrogen 9 mg/dL (9-23); Calcium 10.2 mg/dL (8.7-10.4); Carbon Dioxide 26 mmol/L (20-31); Chloride 106 mmol/L (98-107); Glucose 99 mg/dL (74-106); Lipase 28 U/L (12-53); Magnesium 1.9 mg/dL (1.6-2.6); Sodium 141 mmol/L (136-145); Total Protein 7.6 g/dL (5.7-8.2)
[2024-06-19 10:44] LABS: Potassium 3.4 mmol/L (3.5-5.1)
[2024-06-19 12:51] LABS: Rapid Influenza A Negative (Negative); Rapid Influenza B Negative (Negative)
[2024-06-19 12:52] LABS: COVID19 ANTIGEN SOFIA FIA NEGATIVE (NEGATIVE)
[2024-06-19 14:52] VITALS: BP 150/85; PULSE 73; RESP 18; TEMP 98.3; O2SAT 97
[2024-06-19] MEDS ORDERED: PROC10TA6 PO (15:46)
[2024-06-19] MEDS ORDERED: ALUMCHW6 PO (15:46)
[2024-06-19] MEDS ORDERED: OMEP20TA PO (15:46)
--- NOTE | 2024-06-22 07:08 | ECG ---
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
== END 2024-06-19 16:07 | disposition home or self-care (01) ==
LOC: ER 08:54
DX: R10.13 Epigastric pain (principal); F10.10 Alcohol abuse, uncomplicated; K29.20 Alcoholic gastritis without bleeding; E86.0 Dehydration; I10 Essential (primary) hypertension; F17.210 Nicotine dependence, cigarettes, uncomplicated; F41.9 Anxiety disorder, unspecified; F32.A Depression, unspecified; Z20.822 Contact with and (suspected) exposure to COVID-19
CPT/HCPCS: 36415; 71046; 80053; 83690; 83735; 84484; 85025; 87426; 87804; 93005; 96361; 96374; 99285; J2405; J7030

== ENCOUNTER 2024-07-04 19:46 | Emergency (ER) | payer MEDICAID ==
[~2024-07-04] VITALS: Ht 172.7 cm; Wt 79.5 kg
[~2024-07-04 19:46] MED LIST changes: +ALUMCHW6 PO; +OMEP20TA PO; +PROC10TA6 PO
--- NOTE | 2024-07-04 20:09 | ED.PDOC ---
GI ASSESSMENT HPI Comments 54-year-old male come to ER via EMS for abdominal pain. Patient has history of peptic ulcer disease and alcoholism. Has been drinking alcohol again earlier today when he started developing sharp, constant, epigastric abdominal pain associated bouts of nausea, dry heaving and melena. Patient was given Zofran by paramedics while EN route to the ER Chief Complaint: Abdominal Pain Time Seen by MD: 20:08 Primary Care Provider: CHETANIES Reviewed Notes: Nurses Notes Allergies: Coded Allergies: NO KNOWN ALLERGIES (Unverified , 04/16/20) Home Meds Active Scripts Prochlorperazine Maleate (Compazine) 10 Mg Tb, 1 TAB PO TID for 10 Days, #30 TAB 3 Refills Prov:LYNETTE GRIFFIN MD 06/19/24 Omeprazole (Gnp Omeprazole) 20 Mg Tab, 1 TAB PO BID for 10 Days, #20 TAB 1 Refill Prov:LYNETTE GRIFFIN MD 06/19/24 Aluminum Hydroxide-Mag Carb (Gaviscon Extra Strength) 1 Chw Chw, 1 CHW PO QID for 10 Days, #40 TAB.CHEW Prov:LYNETTE GRIFFIN MD 06/19/24 Cyanocobalamin (B12) 1,000 Mcg Tab, 1000 MCG PO DAILY for 7 Days, #7 TAB 0 Refills Prov:JEANETTE MICHELE MD 06/06/24 Folic Acid (Folate) 400 Mcg Tab, 400 MCG PO DAILY for 30 Days, #30 TAB 0 Refills Prov:JEANETTE MICHELE MD 06/06/24 Thiamine Mononitrate (B1) 100 Mg Tab, 100 MG PO DAILY for 30 Days, #30 TAB 1 Refill Prov:JEANETTE MICHELE MD 06/06/24 Reported Medications Diphenhydramine Hcl (Diphenhydramine Hcl) 25 Mg Cap, 25 MG PO DAILYP PRN for ALCOHOL WITHDRAWAL SYMPTOMS, MG 03/13/24 Aspirin (Aspir-Low) 81 Mg Tab, 81 MG PO DAILY for 30 Days, MG 03/13/24 Alendronate Sodium (Alendronate Sodium) 70 Mg Tab, 1 TAB PO QWEEKLY 01/21/24 Information Source: Patient Mode of Arrival: EMS Timing: Hours Duration: Since onset Prehospital treatment: Treatment (Zofran) Quality: Cramping, Sharp Vomitus: Watery Stool: Black Severity: Moderate Recent: Ingestion of ETOH Recent Hx of: Ulcer Disease Pain Location: Epigastric Modifying Factors: Nothing Associated sign and symptoms: Nausea, Vomiting, Melena, Abdominal Pain Past Medical History PAST MEDICAL HISTORY: Anemia, Anxiety, Depression, HTN, PUD Surgical History: Denies all surgeries Surgical History (Other): Endoscopy Family History Family History: Reviewed,noncontributory to illness Social History Smoker: Cigarettes, Less Than 1 Pack/Day Alcohol: Heavy Drugs: Denies Drug Use Lives In: Homeless Constitutional: denies: chills, diaphoresis, fatigue, fever, malaise, sweats, weakness, others EENTM: denies: blurred vision, double vision, ear bleeding, ear discharge, ear drainage, ear pain, ear ringing, eye pain, eye redness, hearing loss, mouth pain, mouth swelling, nasal discharge, nose bleeding, nose congestion, nose pain, photophobia, tearing, throat pain, throat swelling, voice changes, others Respiratory: denies: cough, hemoptysis, orthopnea, SOB at rest, shortness of breath, SOB with excertion, stridor, wheezing, others Cardiovascular: denies: chest pain, dizzy spells, diaphoresis, Dyspnea on exertion, edema, irregular heart beat, left arm pain, lightheadedness, palpitations, PND, syncope, others Gastrointestinal: reports: abdominal pain, melena, nausea, vomiting; denies: abdomen distended, blood streaked bowels, constipated, diarrhea, dysphagia, difficulty swallowing, hematemesis, poor appetite, poor fluid intake, rectal bleeding, rectal pain, others Genitourinary: denies: burning, dysuria, flank pain, frequency, hematuria, incontinence, penile discharge, penile sore, pain, testicle pain, testicle swelling, urgency, others Neurological: denies: dizziness, fainting, headache, left sided numbness, left sided weakness, numbness, paresthesia, pre-existing deficit, right sided numbness, right sided weakness, seizure, speech problems, tingling, tremors, weakness, others Musculoskeletal: denies: back pain, gout, joint pain, joint swelling, muscle pain, muscle stiffness, neck pain, others Integumetry: denies: bruises, change in color, change in hair/nails, dryness, laceration, lesions, lumps, rash, wounds, others Allergic/Immunocompromised: denies: Difficulty Healing, Frequent Infections, Hives, Itching, others Hematologic/Lymphatic: denies: anemia, blood clots, easy bleeding, easy bruising, swollen glands, others Endocrine: denies: excessive hunger, excessive sweating, excessive thirst, excessive urination, flushing, intolerance to cold, intolerance to heat, unexplained weight gain, unexplained weight loss, others Psychiatric: denies: anxiety, bipolar disorder, depression, hopeless, panic disorder, schizophrenia, sleepless, suicidal, others Physical Exam General Appearance: Mild Distress, Normal HEENT: Normal ENT Inspection, Pharynx Normal, TMs Normal Neck: Full Range of Motion, Non-Tender, Normal, Normal Inspection Respiratory: Chest Non-Tender, Lungs Clear, No Accessory Muscle Use, No Respiratory Distress, Normal Breath Sounds Cardiovascular: No Edema, No JVD, No Murmur, No Gallop, Normal Peripheral Pulses, Regular Rate/Rhythm Breast Exam: Deferred Gastrointestinal: Epigastric, No Organomegaly, No Pulsatile Mass, Normal Bowel Sounds, Soft, Tenderness Genitalia: Deferred Pelvic: Deferred Rectal: Deferred Extremities: No calf tenderness, Normal capillary refill, Normal inspection, Normal range of motion, Non-tender, No pedal edema Musculoskeletal : Apperance: Normal Neurologic: Alert, water technician II-XII nml as Tested, No Motor Deficits, Normal Affect, Normal Mood, No Sensory Deficits Cerebellar Function: Normal Reflexes: Normal Skin: Dry, Normal Color, Warm Lymphatic: No Adenopathy EKG EKG : Pulse Rate (adult): 99 Cardiac Rhythm: NSR Was a procedure done? Was a procedure done?: No GI differential Dx Differential Diagnosis: Diverticular disease, Gastritis/PUD, Gastroenteritis, GI hemorrhage, Inflammatory BD, Ischemic Bowel, UTI, Urolithiasis, Electrolyte Imbalance, Food Poisoning, Anemia X-Ray, Labs, Meds, VS Vital Signs Date Time Temp Pulse Resp B/P (MAP) Pulse Ox O2 Delivery O2 Flow Rate FiO2 07/04/24 21:03 97 18 138/96 (110) 98 07/04/24 21:03 97 18 98 Room Air* 0 21 07/04/24 20:10 99 07/04/24 19:52 97.6 97 22 155/101 (119) 99 07/04/24 19:48 99 Lab Test 07/04/24 21:48 07/04/24 21:17 07/04/24 20:56 Range/Units Troponin I High Sensitivity < 3 L 3 L </=54 ng/L Urine Color Yellow Yellow Urine Clarity Clear Clear Urine pH 6.5 5.0-9.0 Urine Specific [place] 1.045 H 1.001-1.035 Urine Protein 1+ H Negative Urine Ketones Trace Negative Urine Blood Negative Negative /uL Urine Nitrite Negative Negative Urine Bilirubin Negative Negative Urine Urobilinogen 4 H Negative mg/dL Urine Leukocyte Esterase Negative Negative /uL Urine RBC 6 0 - 3 /hpf Urine Microscopic WBC 3 0-3 /HPF Urine Squamous Epithelial Cells Few <5 /hpf Urine Bacteria Few H None Seen /hpf Urine Mucus Few None Seen Urine Glucose Normal Normal mg/dL Urine Opiates Screen Neg NEGATIVE Urine Fentanyl Screen Neg NEGATIVE Urine Barbiturates Screen Neg NEGATIVE Urine Phencyclidine Screen Neg NEGATIVE Urine Amphetamines Screen Neg NEGATIVE Urine Benzodiazepines Screen Neg NEGATIVE Urine Cocaine Screen Neg NEGATIVE Urine Cannabinoids Screen Neg NEGATIVE White Blood Count 10.8 4.4-10.8 10^3/uL Red Blood Count 4.40 L 4.5-5.90 10^6/uL Hemoglobin 14.3 13.5-17.5 g/dL Hematocrit 42.4 41.0-53.0 % Mean Corpuscular Volume 96.4 80.0-100.0 fL Mean Corpuscular Hemoglobin 32.5 H 28.0-32.0 pg Mean Corpuscular Hemoglobin Concent 33.8 32.0-36.0 g/dL Red Cell Distribution Width 17.8 H 11.8-14.3 % Platelet Count 364 140-450 10^3/uL Mean Platelet Volume 7.7 6.9-10.8 fL Neutrophils (%) (Auto) 64.1 37.0-80.0 % Lymphocytes (%) (Auto) 24.9 10.0-50.0 % Monocytes (%) (Auto) 7.9 0.0-12.0 % Eosinophils (%) (Auto) 2.0 0.0-7.0 % Basophils (%) (Auto) 1.1 0.0-2.0 % Neutrophils # (Auto) 6.9 1.6-8.6 10 ^3/uL Lymphocytes # (Auto) 2.7 0.4-5.4 10 ^3/uL Monocytes # (Auto) 0.9 0-1.3 10 ^3/uL Eosinophils # (Auto) 0.2 0-0.8 10 ^3/uL Basophils # (Auto) 0.1 0-0.2 10 ^3/uL Nucleated Red Blood Cells 0.1 % Prothrombin Time 9.8 9.3-11.8 sec Prothrombin Time INR 0.92 0.9-1.15 Activated Partial Thromboplast Time 27.1 24.5-34.5 SEC Sodium Level 137 136-145 mmol/L Potassium Level 3.4 L 3.5-5.1 mmol/L Chloride Level 103 98-107 mmol/L Carbon Dioxide Level 25 20-31 mmol/L Anion Gap 9 5-15 Blood Urea Nitrogen 16 9-23 mg/dL Creatinine 0.87 0.700-1.30 mg/dL Glomerular Filtration Rate Calc 103 >90 mL/min BUN/Creatinine Ratio 18.4 10.0-20.0 Serum Glucose 112 H 74-106 mg/dL Calcium Level 10.8 H 8.7-10.4 mg/dL Total Bilirubin 0.4 0.2-1.0 mg/dL Aspartate Amino Transferase (AST) 16 13-40 U/L Alanine Aminotransferase (ALT) < 9 7-40 U/L Alkaline Phosphatase 83 46-116 U/L Total Protein 7.3 5.7-8.2 g/dL Albumin 4.6 3.2-4.8 g/dL Plasma/Serum Blood Alcohol 4.0 <10 mg/dL Current Medications Medications (Trade) Dose Ordered Sig/Rick Route Start Time Stop Time Status Last Admin Pantoprazole Sodium (Protonix) 40 mg ONCE ONCE IV 07/04/24 20:15 07/04/24 20:18 DC 07/04/24 21:00 Sodium Chloride 3,000 ml @ 1,000 mls/hr Q3H ONCE IV 07/04/24 20:15 07/04/24 23:14 DC 07/04/24 21:00 Ketorolac Tromethamine (Toradol Injection) 30 mg ONCE ONCE IV 07/04/24 21:28 07/04/24 21:29 DC 07/04/24 21:32 CT OF THE ABDOMEN AND PELVIS WITH CONTRAST. HISTORY: gi bleed COMPARISON: Abdominal ultrasound 06/04/2024 TECHNIQUE: Helical axial CT images of the abdomen and pelvis were obtained with intravenous contrast. Multiplanar reformats. One or more of the following radiation dose reduction techniques were used for this examination: automated exposure control, adjustment of the mA and/or kV according to patient size, use of iterative reconstruction technique. FINDINGS: Imaged lung bases are grossly clear. Liver: A few tiny hypodensities scattered throughout the liver may represent cysts but are otherwise too small to further characterize. Gallbladder and biliary system: No sizable, radiopaque cholelithiasis or biliary ductal dilatation appreciated. Pancreas: Negative. Spleen: Negative. Adrenal Glands: Negative. Kidneys and collecting system: No hydroureteronephrosis. Retroperitoneum: No evidence of abdominal aortic aneurysm. Lymph nodes: No discretely enlarged lymph nodes identified. Bowel: Question mild thickening of the proximal duodenum. No evidence of bowel obstruction. Normal caliber appendix. No free intraperitoneal air or fluid identified. Pelvis: No sizable bladder calculus. Osseous structures: No destructive osseous lesions identified. IMPRESSION: Question mild thickening of the proximal duodenum which may be due to underdistention. Please correlate with any endoscopic evaluation for possible duodenitis. Otherwise no bowel obstruction, free intraperitoneal air/ fluid or sizable inflammatory collections identified at this time. UA and urine drug screen are negative. CBC and CMP were normal. Alcohol level is normal. Abdominal pelvis CT reveals duodenitis. The patient will be discharged to follow up with the primary care doctor in 1-2 days. Time of 1ST Reevaluation: 20:04 Reevaluation 1ST: Unchanged Patient Education/Counseling: Diagnosis, Treatment Family Education/Counseling: No Family Present Departure 1 Departure Time of Disposition: 02:49 Impression: Primary Impression: Duodenitis Disposition: 01 HOME / SELF CARE / HOMELESS Condition: Stable Additional Instructions: Reassessed patient, vital signs stable. Denies any new symptoms. Patient is able to tolerate PO and ambulate/be mobile at their baseline without concern. Risks and benefits of all medications given or prescribed, if any, discussed. All lab work, imaging and diagnostic studies were reviewed by me. The patient was counseled extensively on my clinical impression, diagnosis, expected course of the disease, and plan, including their follow-up care. Will discharge patient. Patient instructed to follow up with Primary Care Physician within 24-48 hours. Strict return precautions given for further exacerbation of symptoms or for new symptoms. The patient was given the opportunity to ask questions and all qu estions were answered by myself and the nursing/tech staff. Patient is in agreement with the care plan. The patient verbally expressed understanding of the discharge instructions, including the reasons to return to the Emergency Department. e-Prescriptions Metronidazole (Flagyl) 500 Mg Tab 1 TAB PO TID, #21 TAB Prov: BRE BROWN MD 07/05/24 Discharged With: Self Critical Care Note Critical Care Time?: No Stability Stability form required: No Heart Score Heart Score: Heart Score Response (Comments) Value History N/A 0 EKG N/A 0 Age N/A 0 Risk Factors N/A 0 Troponin N/A 0 Total 0 I personally scribed for BRE BROWN MD (EMMA) on 07/04/24 at 20:09. Electronically submitted by Brad Richards ([email or web address]). I personally scribed for BRE BROWN MD (EMMA) on 07/04/24 at 20:10. Electronically submitted by Brad Richards ([email or web address]). I personally scribed for BRE BROWN MD (EMMA) on 07/05/24 at 00:02. Electronically submitted by Brad Richards ([email or web address]). BRE BROWN MD Jul 04, 2024 20:09
[2024-07-04] MEDS: PANTOPRAZOLE 40 MG/10 ML VIAL INJ IV ONE (21:00)
[2024-07-04] MEDS: SODIUM CHLORIDE 0.9% 3,000 ML IV ONE (21:00)
[2024-07-04 21:03] VITALS: PULSE 97; RESP 18; O2SAT 98
[2024-07-04 21:11] LABS: Basophils # (auto) 0.1 10 ^3/uL (0-0.2); Basophils % (auto) 1.1 % (0.0-2.0); Eosinophils # (auto) 0.2 10 ^3/uL (0-0.8); Hematocrit 42.4 % (41.0-53.0); Hemoglobin 14.3 g/dL (13.5-17.5); Lymphocytes # (auto) 2.7 10 ^3/uL (0.4-5.4); Lymphocytes % (auto) 24.9 % (10.0-50.0); Mean Corpuscular Hemoglobin 32.5 pg (28.0-32.0); Mean Corpuscular Hgb Conc. 33.8 g/dL (32.0-36.0); Mean Corpuscular Volume 96.4 fL (80.0-100.0); Monocytes # (auto) 0.9 10 ^3/uL (0-1.3); Monocytes % (auto) 7.9 % (0.0-12.0); Neutrophils # (auto) 6.9 10 ^3/uL (1.6-8.6); Neutrophils % (auto) 64.1 % (37.0-80.0); Nucleated Red Blood Cells % 0.1 %; Platelet Count (auto) 364 10^3/uL (140-450); Red Cell Distribution Width 17.8 % (11.8-14.3); White Blood Cell 10.8 10^3/uL (4.4-10.8)
[2024-07-04 21:22] LABS: INR 0.92 (0.9-1.15); Partial Thromboplastin Time 27.1 SEC (24.5-34.5); Prothrombin Time 9.8 sec (9.3-11.8)
[2024-07-04 21:29] LABS: Albumin 4.6 g/dL (3.2-4.8); Alkaline Phosphatase 83 U/L (46-116); Anion Gap 9 (5-15); Aspartate Aminotransferase 16 U/L (13-40); BUN/Creatinine Ratio 18.4 (10.0-20.0); Bilirubin, Total 0.4 mg/dL (0.2-1.0); Blood Urea Nitrogen 16 mg/dL (9-23); Carbon Dioxide 25 mmol/L (20-31); Chloride 103 mmol/L (98-107); Sodium 137 mmol/L (136-145); Total Protein 7.3 g/dL (5.7-8.2)
[2024-07-04 21:31] LABS: Alanine Aminotransferase < 9 U/L (7-40); Calcium 10.8 mg/dL (8.7-10.4); Glucose 112 mg/dL (74-106); Potassium 3.4 mmol/L (3.5-5.1)
[2024-07-04] MEDS: KETOROLAC TROMETH 30 MG/ML 1ML VIAL IV ONE (21:32)
[2024-07-04 22:30] LABS: Urine Bacteria FEW /hpf (None Seen); Urine Blood Negative /uL (Negative); Urine Clarity Clear (Clear); Urine Color Yellow (Yellow); Urine Mucus FEW (None Seen); Urine Protein, UAD 1+ (Negative); Urine Specific Gravity 1.045 (1.001-1.035); Urine Squamous Epithelial Cell FEW /hpf (<5); Urine Urobilinogen 4 mg/dL (Negative); Urine WBC 3 /HPF (0-3); Urine pH 6.5 (5.0-9.0)
[2024-07-04 22:59] LABS: Amphetamine Screen, Urine Neg (NEGATIVE); Benzodiazephine Screen, Urine Neg (NEGATIVE); Opiate Scree,Urine Neg (NEGATIVE); Phencyclidine Screen, Urine Neg (NEGATIVE)
[2024-07-04 23:02] LABS: Barbiturate Scree,Urine Neg (NEGATIVE); Cannabinoid Screen, Urine Neg (NEGATIVE); Cocaine Screen, Urine Neg (NEGATIVE)
[2024-07-04] MEDS: IOHEXOL 300 MG/ML 100ML BOTTLE IJ ONE (23:50)
--- NOTE | 2024-07-04 23:53 | DVH ---
CT OF THE ABDOMEN AND PELVIS WITH CONTRAST. HISTORY: gi bleed COMPARISON: Abdominal ultrasound 06/04/2024 TECHNIQUE: Helical axial CT images of the abdomen and pelvis were obtained with intravenous contrast. Multiplanar reformats. One or more of the following radiation dose reduction techniques were used fo r this examination: automated exposure control, adjustment of the mA and/or kV according to patient s ize, use of iterative reconstruction technique. FINDINGS: Imaged lung bases are grossly clear. Liver: A few tiny hypodensities scattered throughout the liver may represent cysts but are otherwise too small to further characterize. Gallbladder and biliary system: No sizable, radiopaque cholelithiasis or biliary ductal dilatation ap preciated. Pancreas: Negative. Spleen: Negative. Adrenal Glands: Negative. Kidneys and collecting system: No hydroureteronephrosis. Retroperitoneum: No evidence of abdominal aortic aneurysm. Lymph nodes: No discretely enlarged lymph nodes identified. Bowel: Question mild thickening of the proximal duodenum. No evidence of bowel obstruction. Normal ca liber appendix. No free intraperitoneal air or fluid identified. Pelvis: No sizable bladder calculus. Osseous structures: No destructive osseous lesions identified. IMPRESSION: Question mild thickening of the proximal duodenum which may be due to underdistention. Please correla te with any endoscopic evaluation for possible duodenitis. Otherwise no bowel obstruction, free intraperitoneal air/ fluid or sizable inflammatory collections i dentified at this time.
[2024-07-05] MEDS ORDERED: METR-344 PO (02:50)
[2024-07-05 03:10] VITALS: BP 140/97; PULSE 86; RESP 16; O2SAT 96
--- NOTE | 2024-07-06 12:58 | ECG ---
[facility] Test Date: 2024-07-04 Test Time: 19:48:42 Pat Name: DALTON MANCINI Department: ER Room: Gender: M Postie: : 1970 Requested By: EMERGENCY EMERGENCY Order Number: [id number] Reading MD: Harry Rao Measurements Intervals [place] Rate: 99 P: 84 SD: 145 QRS: 80 QRSD: 92 T: 81 QT: 374 QTc: 480 Interpretive Statements Sinus rhythm Borderline prolonged QT interval Electronically Signed On 07-06-2024 21:11:05 PST by Harry Rao Please click the below link to view image of tracing.
== END 2024-07-05 03:14 | disposition home or self-care (01) ==
LOC: EDBD 19:46 → EDUNIT# 19:46 → ER 19:46
DX: K29.80 Duodenitis without bleeding (principal); I10 Essential (primary) hypertension; F17.210 Nicotine dependence, cigarettes, uncomplicated; Z59.00 Homelessness unspecified; Z79.82 Long term (current) use of aspirin; Z79.899 Other long term (current) drug therapy
CPT/HCPCS: 36415; 74177; 80053; 80307; 80320; 81001; 84484; 85025; 85610; 85730; 86850; 86900; 86901; 93005; 96361; 96374; 96375; 99285; J1885; J2470; J7030; Q9967

== ENCOUNTER 2024-07-18 15:23 | Emergency (ER) | payer MEDICAID ==
[~2024-07-18] VITALS: Ht 175.3 cm; Wt 63.4 kg
[~2024-07-18 15:23] MED LIST changes: +METR-344 PO
--- NOTE | 2024-07-18 16:26 | ED.PDOC ---
History of Present Illness HPI Comments This patient is a 54-year-old male who arrives the ED today with complaints of abdominal pain and bilateral flank pain for the past day and a half. Patient has had similar complaints in the past and has received full workups with imaging studies that were all unremarkable. Patient states he has been unable to follow up with his primary care provider for evaluation and arrives today with continued complaints of belly pain. Patient states intermittent nausea and vomiting. Patient was hypertensive and tachycardic at arrival. Chief Complaint: Abdominal Pain Time Seen by MD: 15:50 Primary Care Provider: dr dos santos Reviewed Notes: Nurses Notes, Medications, Allergies Allergies: Coded Allergies: NO KNOWN ALLERGIES (Unverified , 04/16/20) Home Meds Active Scripts Metronidazole (Flagyl) 500 Mg Tab, 1 TAB PO TID, #21 TAB Prov:BRE BROWN MD 07/05/24 Prochlorperazine Maleate (Compazine) 10 Mg Tb, 1 TAB PO TID for 10 Days, #30 TAB 3 Refills Prov:LYNETTE GRIFFIN MD 06/19/24 Omeprazole (Gnp Omeprazole) 20 Mg Tab, 1 TAB PO BID for 10 Days, #20 TAB 1 Refill Prov:LYNETTE GRIFFIN MD 06/19/24 Aluminum Hydroxide-Mag Carb (Gaviscon Extra Strength) 1 Chw Chw, 1 CHW PO QID for 10 Days, #40 TAB.CHEW Prov:LYNETTE GRIFFIN MD 06/19/24 Cyanocobalamin (B12) 1,000 Mcg Tab, 1000 MCG PO DAILY for 7 Days, #7 TAB 0 Refills Prov:JEANETTE MICHELE MD 06/06/24 Folic Acid (Folate) 400 Mcg Tab, 400 MCG PO DAILY for 30 Days, #30 TAB 0 Refills Prov:JEANETTE MICHELE MD 06/06/24 Thiamine Mononitrate (B1) 100 Mg Tab, 100 MG PO DAILY for 30 Days, #30 TAB 1 Refill Prov:JEANETTE MICHELE MD 06/06/24 Reported Medications Diphenhydramine Hcl (Diphenhydramine Hcl) 25 Mg Cap, 25 MG PO DAILYP PRN for ALCOHOL WITHDRAWAL SYMPTOMS, MG 03/13/24 Aspirin (Aspir-Low) 81 Mg Tab, 81 MG PO DAILY for 30 Days, MG 03/13/24 Alendronate Sodium (Alendronate Sodium) 70 Mg Tab, 1 TAB PO QWEEKLY 01/21/24 Information Source: Patient Mode of Arrival: Wheelchair Severity: Moderate Timing: Came on: Suddenly Duration: Since onset Prehospital treatment: None Past Medical History PAST MEDICAL HISTORY: Anemia, Anxiety, Depression, HTN, PUD Past Medical History (Other): Recent multi month history of abdominal pain that has not been diagnosed. Surgical History (Other): Endoscopy Family History Family History: Reviewed,noncontributory to illness, Unknown Social History Smoker: Non-Smoker Alcohol: Denies ETOH Use Drugs: Denies Drug Use Lives In: Unknown Constitutional: denies: chills, diaphoresis, fatigue, fever, malaise, sweats, weakness, others EENTM: denies: blurred vision, double vision, ear bleeding, ear discharge, ear drainage, ear pain, ear ringing, eye pain, eye redness, hearing loss, mouth pain, mouth swelling, nasal discharge, nose bleeding, nose congestion, nose pain, photophobia, tearing, throat pain, throat swelling, voice changes, others Respiratory: denies: cough, hemoptysis, orthopnea, SOB at rest, shortness of breath, SOB with excertion, stridor, wheezing, others Cardiovascular: denies: chest pain, dizzy spells, diaphoresis, Dyspnea on exertion, edema, irregular heart beat, left arm pain, lightheadedness, palpitations, PND, syncope, others Gastrointestinal: reports: abdominal pain; denies: abdomen distended, blood streaked bowels, constipated, diarrhea, dysphagia, difficulty swallowing, hematemesis, melena, nausea, poor appetite, poor fluid intake, rectal bleeding, rectal pain, vomiting, others Genitourinary: reports: flank pain; denies: burning, dysuria, frequency, hematuria, incontinence, penile discharge, penile sore, pain, testicle pain, testicle swelling, urgency, others Neurological: denies: dizziness, fainting, headache, left sided numbness, left sided weakness, numbness, paresthesia, pre-existing deficit, right sided numbness, right sided weakness, seizure, speech problems, tingling, tremors, weakness, others Musculoskeletal: denies: back pain, gout, joint pain, joint swelling, muscle pain, muscle stiffness, neck pain, others Integumetry: denies: bruises, change in color, change in hair/nails, dryness, laceration, lesions, lumps, rash, wounds, others Allergic/Immunocompromised: denies: Difficulty Healing, Frequent Infections, Hives, Itching, others Hematologic/Lymphatic: denies: anemia, blood clots, easy bleeding, easy bruising, swollen glands, others Endocrine: denies: excessive hunger, excessive sweating, excessive thirst, excessive urination, flushing, intolerance to cold, intolerance to heat, unexpla ined weight gain, unexplained weight loss, others Psychiatric: denies: anxiety, bipolar disorder, depression, hopeless, panic disorder, schizophrenia, sleepless, suicidal, others All Other Systems: Reviewed and Negative Physical Exam General Appearance: Moderate Distress (Patient was in moderate distress at time of evaluation due to flank and belly pain concerns.), Normal HEENT: Normal ENT Inspection, Pharynx Normal, TMs Normal Neck: Full Range of Motion, Non-Tender, Normal, Normal Inspection Respiratory: Chest Non-Tender, Lungs Clear, No Accessory Muscle Use, No Respiratory Distress, Normal Breath Sounds Cardiovascular: No Edema, No JVD, No Murmur, No Gallop, Normal Peripheral Pulses, Regular Rate/Rhythm Breast Exam: Deferred Gastrointestinal: Other (Diffuse abdominal tenderness to palpation throughout the periumbilical region bilaterally. Patient states pain radiates up towards his bilateral flanks. No signs of trauma. No pulsatile masses. Abdomen was reasonably soft.) Genitalia: Deferred Pelvic: Deferred Rectal: Deferred Extremities: No calf tenderness, Normal capillary refill, Normal inspection, Normal range of motion, Non-tender, No pedal edema Musculoskeletal : Apperance: Normal Neurologic: Alert, No Motor Deficits, Normal Affect, Normal Mood, No Sensory Deficits Cerebellar Function: Normal Reflexes: Normal Skin: Dry, Normal Color, Warm Lymphatic: No Adenopathy Was a procedure done? Was a procedure done?: No Differential Dx Considerations may include: Abdominal pain, small-bowel obstruction, pancreatitis, hepatic steatosis, UTI, pyelonephritis, gastroenteritis X-Ray, Labs, Meds, VS Vital Signs Date Time Temp Pulse Resp B/P (MAP) Pulse Ox O2 Delivery O2 Flow Rate FiO2 07/18/24 16:44 98.5 116 16 119/85 (96) 97 98.5 07/18/24 16:44 117 16 96 Room Air* 0 21 07/18/24 15:37 98.8 124 20 141/99 (113) 100 Lab Test 07/18/24 16:14 Range/Units White Blood Count 9.0 4.4-10.8 10^3/uL Red Blood Count 4.25 L 4.5-5.90 10^6/uL Hemoglobin 13.7 13.5-17.5 g/dL Hematocrit 40.5 L 41.0-53.0 % Mean Corpuscular Volume 95.2 80.0-100.0 fL Mean Corpuscular Hemoglobin 32.3 H 28.0-32.0 pg Mean Corpuscular Hemoglobin Concent 33.9 32.0-36.0 g/dL Red Cell Distribution Width 17.6 H 11.8-14.3 % Platelet Count 452 H 140-450 10^3/uL Mean Platelet Volume 7.3 6.9-10.8 fL Neutrophils (%) (Auto) 68.0 37.0-80.0 % Lymphocytes (%) (Auto) 22.9 10.0-50.0 % Monocytes (%) (Auto) 7.3 0.0-12.0 % Eosinophils (%) (Auto) 1.2 0.0-7.0 % Basophils (%) (Auto) 0.6 0.0-2.0 % Neutrophils # (Auto) 6.1 1.6-8.6 10 ^3/uL Lymphocytes # (Auto) 2.1 0.4-5.4 10 ^3/uL Monocytes # (Auto) 0.7 0-1.3 10 ^3/uL Eosinophils # (Auto) 0.1 0-0.8 10 ^3/uL Basophils # (Auto) 0.1 0-0.2 10 ^3/uL Nucleated Red Blood Cells 0.2 % Sodium Level 138 136-145 mmol/L Potassium Level 4.2 3.5-5.1 mmol/L Chloride Level 103 98-107 mmol/L Carbon Dioxide Level 27 20-31 mmol/L Anion Gap 8 5-15 Blood Urea Nitrogen 13 9-23 mg/dL Creatinine 0.78 0.700-1.30 mg/dL Glomerular Filtration Rate Calc 106 >90 mL/min BUN/Creatinine Ratio 16.7 10.0-20.0 Serum Glucose 111 H 74-106 mg/dL Calcium Level 10.6 H 8.7-10.4 mg/dL Lipase 27 12-53 U/L Current Medications Medications (Trade) Dose Ordered Sig/Rick Route Start Time Stop Time Status Last Admin Ketorolac Tromethamine (Toradol Injection) 30 mg ONCE ONCE IM 07/18/24 16:00 07/18/24 16:01 DC 07/18/24 16:51 X-Ray, Labs, Meds, VS Comment All studies performed the ED were evaluated by me personally. Laboratories studies were unremarkable for any systemic process and imaging studies of the abdomen were unremarkable for any intra-abdominal concerns. I was waiting for urine to be sent in for evaluation, but nursing stated that the patient appears to have eloped from the facility. Time of 1ST Reevaluation: 20:08 Reevaluation 1ST: Unchanged Consultation: PCP Patient Education/Counseling: Diagnosis, Treatment, Prognosis Family Education/Counseling: Diagnosis, Treatment, No Family Present Departure 1 Departure Time of Disposition: 20:08 Impression: Primary Impression: Abdominal pain Disposition: LEFT AWOL/ELOPED Condition: Fair Discharged With: Self Critical Care Note Critical Care Time?: No Stability Stability form required: No Heart Score Heart Score: Heart Score Response (Comments) Value History N/A 0 EKG N/A 0 Age N/A 0 Risk Factors N/A 0 Troponin N/A 0 Total 0 I personally scribed for RADHA PRINCE PAC ([email or web address]) on 07/18/24 at 16:26. Electronically submitted by Vinicio Pierre ([email or web address]). RADHA PRINCE PAC Jul 18, 2024 16:26
--- NOTE | 2024-07-18 16:28 | DVH ---
Exam: CT CT AB PEL WO CON-NO ORAL OR IV History: Bilateral flank pain Comparison Study: None available TECHNIQUE: Multidetector CT of the abdomen and pelvis was performed from lung bases to pubic symphysi s. Imaging was performed without IV contrast. Axial, coronal, and sagittal multiplanar reformats were obtained from the axial data set by the technologist. RADIATION DOSE: DLP 273.15 mGy.cm; CTDI vol 5.68 mGy. Findings: Lungs: The lung bases are clear. Heart: No cardiomegaly or pericardial effusion. Liver: Unremarkable. Gallbladder: Unremarkable. Spleen: Unremarkable Pancreas: Unremarkable Adrenals: Unremarkable Kidneys: No hydroureterolithiasis. GI tract: Unremarkable : Calcifications in the prostate Vasculature: Unremarkable Lymphadenopathy: Absent Peritoneum: No ascites Musculoskeletal: Unremarkable Soft tissues: Unremarkable Impression: 1. No acute abdominopelvic abnormalities. 2. No hydroureterolithiasis. 3. Calcifications in the prostate favored intraprostatic, but cannot exclude smaller prostatic urethr a calcifications.
[2024-07-18 16:32] LABS: Basophils # (auto) 0.1 10 ^3/uL (0-0.2); Basophils % (auto) 0.6 % (0.0-2.0); Eosinophils # (auto) 0.1 10 ^3/uL (0-0.8); Eosinophils % (auto) 1.2 % (0.0-7.0); Hematocrit 40.5 % (41.0-53.0); Hemoglobin 13.7 g/dL (13.5-17.5); Lymphocytes # (auto) 2.1 10 ^3/uL (0.4-5.4); Lymphocytes % (auto) 22.9 % (10.0-50.0); Mean Corpuscular Hemoglobin 32.3 pg (28.0-32.0); Mean Corpuscular Hgb Conc. 33.9 g/dL (32.0-36.0); Mean Corpuscular Volume 95.2 fL (80.0-100.0); Monocytes # (auto) 0.7 10 ^3/uL (0-1.3); Monocytes % (auto) 7.3 % (0.0-12.0); Neutrophils # (auto) 6.1 10 ^3/uL (1.6-8.6); Nucleated Red Blood Cells % 0.2 %; Platelet Count (auto) 452 10^3/uL (140-450); Red Blood Cells 4.25 10^6/uL (4.5-5.90); Red Cell Distribution Width 17.6 % (11.8-14.3)
[2024-07-18 16:43] LABS: Chloride 103 mmol/L (98-107); Potassium 4.2 mmol/L (3.5-5.1); Sodium 138 mmol/L (136-145)
[2024-07-18 16:44] VITALS: PULSE 117; RESP 16; O2SAT 96
[2024-07-18 16:44] LABS: Anion Gap 8 (5-15); Carbon Dioxide 27 mmol/L (20-31)
[2024-07-18 16:49] LABS: BUN/Creatinine Ratio 16.7 (10.0-20.0); Blood Urea Nitrogen 13 mg/dL (9-23); Lipase 27 U/L (12-53)
[2024-07-18] MEDS: KETOROLAC TROMETH 60MG/2ML VIAL IM ONE (16:51)
[2024-07-18 16:52] LABS: Calcium 10.6 mg/dL (8.7-10.4); Glucose 111 mg/dL (74-106)
[2024-07-19 02:33] VITALS: BP 117/86; TEMP 98.4
[2024-07-19 02:34] VITALS: PULSE 104; RESP 18; O2SAT 98
== END 2024-07-19 03:05 | disposition left against medical advice (07) ==
LOC: ER 15:23
DX: R10.84 Generalized abdominal pain (principal); R11.2 Nausea with vomiting, unspecified; I10 Essential (primary) hypertension; Z87.11 Personal history of peptic ulcer disease; Z79.82 Long term (current) use of aspirin; Z79.899 Other long term (current) drug therapy
CPT/HCPCS: 36415; 74176; 80048; 83690; 85025; 96372; 99285; J1885

== ENCOUNTER 2024-07-18 23:16 | Emergency (ER) | payer MEDICAID ==
[~2024-07-18] VITALS: Ht 170.2 cm; Wt 59.1 kg
--- NOTE | 2024-07-19 00:05 | ED.PDOC ---
GI ASSESSMENT HPI Comments 54-year-old male came to ER for abdominal pain. Patient has a heavy alcohol drinker. Has been complaining of lower abdominal pain, bilateral flank pains, sharp, intermittent, radiating to the back, for the past month. Noted worsening of abdominal pain the past 4 days with episodes of nausea and vomiting. Cannot keep anything in. Patient came here few hours ago for same complaints but left AMA. Chief Complaint: Abdominal Pain Time Seen by MD: 00:04 Primary Care Provider: dr dos santos Reviewed Notes: Nurses Notes Allergies: Coded Allergies: NO KNOWN ALLERGIES (Unverified , 04/16/20) Home Meds Active Scripts Metronidazole (Flagyl) 500 Mg Tab, 1 TAB PO TID, #21 TAB Prov:BRE BROWN MD 07/05/24 Prochlorperazine Maleate (Compazine) 10 Mg Tb, 1 TAB PO TID for 10 Days, #30 TAB 3 Refills Prov:LYNETTE GRIFFIN MD 06/19/24 Omeprazole (Gnp Omeprazole) 20 Mg Tab, 1 TAB PO BID for 10 Days, #20 TAB 1 Refill Prov:LYNETTE GRIFFIN MD 06/19/24 Aluminum Hydroxide-Mag Carb (Gaviscon Extra Strength) 1 Chw Chw, 1 CHW PO QID for 10 Days, #40 TAB.CHEW Prov:LYNETTE GRIFFIN MD 06/19/24 Cyanocobalamin (B12) 1,000 Mcg Tab, 1000 MCG PO DAILY for 7 Days, #7 TAB 0 Refills Prov:JEANETTE MICHELE MD 06/06/24 Folic Acid (Folate) 400 Mcg Tab, 400 MCG PO DAILY for 30 Days, #30 TAB 0 Refills Prov:JEANETTE MICHELE MD 06/06/24 Thiamine Mononitrate (B1) 100 Mg Tab, 100 MG PO DAILY for 30 Days, #30 TAB 1 Refill Prov:JEANETTE MICHELE MD 06/06/24 Reported Medications Diphenhydramine Hcl (Diphenhydramine Hcl) 25 Mg Cap, 25 MG PO DAILYP PRN for ALCOHOL WITHDRAWAL SYMPTOMS, MG 03/13/24 Aspirin (Aspir-Low) 81 Mg Tab, 81 MG PO DAILY for 30 Days, MG 03/13/24 Alendronate Sodium (Alendronate Sodium) 70 Mg Tab, 1 TAB PO QWEEKLY 01/21/24 Information Source: Patient Mode of Arrival: Ambulatory Timing: Hours Duration: Since onset Prehospital treatment: None Quality: Aching, Cramping Vomitus: Food Particles, Watery Stool: Normal Severity: Moderate Recent: Ingestion of ETOH Pain Location: Epigastric Modifying Factors: Nothing Associated sign and symptoms: Nausea, Vomiting, Abdominal Pain, Anorexia Past Medical History PAST MEDICAL HISTORY: Anemia, Anxiety, Depression, HTN, PUD Surgical History: Denies all surgeries Family History Family History: Reviewed,noncontributory to illness Social History Smoker: Non-Smoker Alcohol: Heavy Drugs: Denies Drug Use Lives In: Home, Unknown Constitutional: reports: weakness; denies: chills, diaphoresis, fatigue, fever, malaise, sweats, others EENTM: denies: blurred vision, double vision, ear bleeding, ear discharge, ear drainage, ear pain, ear ringing, eye pain, eye redness, hearing loss, mouth pain, mouth swelling, nasal discharge, nose bleeding, nose congestion, nose pain, photophobia, tearing, throat pain, throat swelling, voice changes, others Respiratory: denies: cough, hemoptysis, orthopnea, SOB at rest, shortness of breath, SOB with excertion, stridor, wheezing, others Cardiovascular: denies: chest pain, dizzy spells, diaphoresis, Dyspnea on exertion, edema, irregular heart beat, left arm pain, lightheadedness, palpitations, PND, syncope, others Gastrointestinal: reports: abdominal pain, nausea, poor appetite, vomiting; denies: abdomen distended, blood streaked bowels, constipated, diarrhea, dysphagia, difficulty swallowing, hematemesis, melena, poor fluid intake, rectal bleeding, rectal pain, others Genitourinary: denies: burning, dysuria, flank pain, frequency, hematuria, incontinence, penile discharge, penile sore, pain, testicle pain, testicle swel ling, urgency, others Neurological: denies: dizziness, fainting, headache, left sided numbness, left sided weakness, numbness, paresthesia, pre-existing deficit, right sided numbness, right sided weakness, seizure, speech problems, tingling, tremors, weakness, others Musculoskeletal: denies: back pain, gout, joint pain, joint swelling, muscle pain, muscle stiffness, neck pain, others Integumetry: denies: bruises, change in color, change in hair/nails, dryness, laceration, lesions, lumps, rash, wounds, others Allergic/Immunocompromised: denies: Difficulty Healing, Frequent Infections, Hives, Itching, others Hematologic/Lymphatic: denies: anemia, blood clots, easy bleeding, easy bruising, swollen glands, others Endocrine: denies: excessive hunger, excessive sweating, excessive thirst, excessive urination, flushing, intolerance to cold, intolerance to heat, unexplained weight gain, unexplained weight loss, others Psychiatric: denies: anxiety, bipolar disorder, depression, hopeless, panic disorder, schizophrenia, sleepless, suicidal, others Physical Exam General Appearance: Mild Distress, Normal HEENT: Normal ENT Inspection, Pharynx Normal, TMs Normal Neck: Full Range of Motion, Non-Tender, Normal, Normal Inspection Respiratory: Chest Non-Tender, Lungs Clear, No Accessory Muscle Use, No Respiratory Distress, Normal Breath Sounds Cardiovascular: No Edema, No JVD, No Murmur, No Gallop, Normal Peripheral Pulses, Regular Rate/Rhythm Breast Exam: Deferred Gastrointestinal: Distended, No Organomegaly, No Pulsatile Mass, Normal Bowel Sounds, Soft, Tenderness (Diffuse tenderness) Genitalia: Deferred Pelvic: Deferred Rectal: Deferred Extremities: No calf tenderness, Normal capillary refill, Normal inspection, Normal range of motion, Non-tender, No pedal edema Musculoskeletal : Apperance: Normal Neurologic: Alert, carton stamper II-XII nml as Tested, No Motor Deficits, Normal Affect, Normal Mood, No Sensory Deficits Cerebellar Function: Normal Reflexes: Normal Skin: Dry, Normal Color, Warm Lymphatic: No Adenopathy Was a procedure done? Was a procedure done?: No GI differential Dx Differential Diagnosis: Diverticular disease, Gastritis/PUD, Gastroenteritis, Pancreatitis, UTI, Urolithiasis, Dehydration, Electrolyte Imbalance, Food Poisoning, Other (Alcohol intoxication) X-Ray, Labs, Meds, VS Vital Signs Date Time Temp Pulse Resp B/P (MAP) Pulse Ox O2 Delivery O2 Flow Rate FiO2 07/18/24 23:26 92 07/18/24 23:18 98.7 96 20 153/101 (118) 98 Lab Test 07/19/24 04:01 07/19/24 02:35 07/19/24 00:42 Range/Units Lactic Acid Level Pending 2.2 *H 0.4-2.0 mmol/L Urine Color Yellow Yellow Urine Clarity Clear Clear Urine pH 7.5 5.0-9.0 Urine Specific [place] 1.030 1.001-1.035 Urine Protein 1+ H Negative Urine Ketones Trace Negative Urine Blood Negative Negative /uL Urine Nitrite Negative Negative Urine Bilirubin Negative Negative Urine Urobilinogen 4 H Negative mg/dL Urine Leukocyte Esterase Negative Negative /uL Urine RBC 8 0 - 3 /hpf Urine Microscopic WBC 6 H 0-3 /HPF Urine Squamous Epithelial Cells Few <5 /hpf Urine Renal Epithelial Cells Few None Seen /hpf Urine Bacteria None seen None Seen /hpf Urine Mucus Moderate None Seen Urine Glucose Normal Normal mg/dL Urine Opiates Screen Neg NEGATIVE Urine Fentanyl Screen Neg NEGATIVE Urine Barbiturates Screen Neg NEGATIVE Urine Phencyclidine Screen Neg NEGATIVE Urine Amphetamines Screen Neg NEGATIVE Urine Benzodiazepines Screen Neg NEGATIVE Urine Cocaine Screen Neg NEGATIVE Urine Cannabinoids Screen Neg NEGATIVE White Blood Count 8.7 4.4-10.8 10^3/uL Red Blood Count 4.27 L 4.5-5.90 10^6/uL Hemoglobin 13.6 13.5-17.5 g/dL Hematocrit 40.9 L 41.0-53.0 % Mean Corpuscular Volume 95.7 80.0-100.0 fL Mean Corpuscular Hemoglobin 31.7 28.0-32.0 pg Mean Corpuscular Hemoglobin Concent 33.2 32.0-36.0 g/dL Red Cell Distribution Width 17.4 H 11.8-14.3 % Platelet Count 446 140-450 10^3/uL Mean Platelet Volume 7.6 6.9-10.8 fL Neutrophils (%) (Auto) 59.3 37.0-80.0 % Lymphocytes (%) (Auto) 27.6 10.0-50.0 % Monocytes (%) (Auto) 11.4 0.0-12.0 % Eosinophils (%) (Auto) 1.3 0.0-7.0 % Basophils (%) (Auto) 0.4 0.0-2.0 % Neutrophils # (Auto) 5.2 1.6-8.6 10 ^3/uL Lymphocytes # (Auto) 2.4 0.4-5.4 10 ^3/uL Monocytes # (Auto) 1.0 0-1.3 10 ^3/uL Eosinophils # (Auto) 0.1 0-0.8 10 ^3/uL Basophils # (Auto) 0 0-0.2 10 ^3/uL Nucleated Red Blood Cells 0.0 % Sodium Level 139 136-145 mmol/L Potassium Level 4.2 3.5-5.1 mmol/L Chloride Level 102 98-107 mmol/L Carbon Dioxide Level 31 20-31 mmol/L Anion Gap 6 5-15 Blood Urea Nitrogen 15 9-23 mg/dL Creatinine 1.01 0.700-1.30 mg/dL Glomerular Filtration Rate Calc 88 >90 mL/min BUN/Creatinine Ratio 14.9 10.0-20.0 Serum Glucose 138 H 74-106 mg/dL Calcium Level 10.7 H 8.7-10.4 mg/dL Total Bilirubin 0.3 0.2-1.0 mg/dL Aspartate Amino Transferase (AST) 18 13-40 U/L Alanine Aminotransferase (ALT) < 9 7-40 U/L Alkaline Phosphatase 63 46-116 U/L Total Protein 6.7 5.7-8.2 g/dL Albumin 4.6 3.2-4.8 g/dL Lipase 32 12-53 U/L Plasma/Serum Blood Alcohol < 3.0 <10 mg/dL Current Medications Medications (Trade) Dose Ordered Sig/Rick Route Start Time Stop Time Status Last Admin Sodium Chloride 1,000 ml @ 1,000 mls/hr Q1H ONCE IVB 07/19/24 00:15 07/19/24 01:14 DC 07/19/24 04:23 Al Hydrox/Mg Hydrox/Simethicone (Maalox Plus) 30 ml ONCE ONCE PO 07/19/24 00:15 07/19/24 00:16 DC 07/19/24 04:34 Belladonna Alkaloids/ Phenobarbital ( Elixir) 5 ml ONCE ONCE PO 07/19/24 00:15 07/19/24 00:16 DC 07/19/24 04:34 Lidocaine HCl (Xylocaine 2% Viscous) 15 ml ONCE ONCE PO 07/19/24 00:15 07/19/24 00:16 DC 07/19/24 04:34 Lipase is 32. Alcohol level is three. The patient was given GI cocktail and subsequently discharged as he continued to leave randomly from the emergency room and return. Time of 1ST Reevaluation: 23:53 Reevaluation 1ST: Unchanged Patient Education/Counseling: Diagnosis, Treatment Family Education/Counseling: No Family Present Departure 1 Departure Time of Disposition: 04:44 Impression: Primary Impression: Abdominal pain Qualified Codes: R10.9 - Unspecified abdominal pain Additional Impression: Alcohol abuse Disposition: 01 HOME / SELF CARE / HOMELESS Condition: Stable Additional Instructions: Reassessed patient, vital signs stable. Denies any new symptoms. Patient is able to tolerate PO and ambulate/be mobile at their baseline without concern. Risks and benefits of all medications given or prescribed, if any, discussed. All lab work, imaging and diagnostic studies were reviewed by me. The patient was counseled extensively on my clinical impression, diagnosis, expected course of the disease, and plan, including their follow-up care. Will discharge patient. Patient instructed to follow up with Primary Care Physician within 24-48 hours. Strict return precautions given for further exacerbation of symptoms or for new symptoms. The patient was given the opportunity to ask questions and all questions were answered by myself and the nursing/tech staff. Patient is in agreement with the care plan. The patient verbally expressed understanding of the discharge instructions, including the reasons to return to the Emergency Department. Follow up with the alcohol rehabilitation program of your choice. Discharged With: Self Critical Care Note Critical Care Time?: No Stability Stability form required: No Heart Score Heart Score: Heart Score Response (Comments) Value History N/A 0 EKG N/A 0 Age N/A 0 Risk Factors N/A 0 Troponin N/A 0 Total 0 I personally scribed for BRE BROWN MD ([email or web address]) on 07/19/24 at 00:05. Electronically submitted by Brad Richards ([email or web address]). BRE BROWN MD Jul 19, 2024 00:05
[2024-07-19] MEDS: SODIUM CHLORIDE 0.9% 1,000 ML IV ONE (00:15)
[2024-07-19 01:18] LABS: Lactic Acid w/Reflex 2.2 mmol/L (0.4-2.0)
[2024-07-19 01:19] LABS: Albumin 4.6 g/dL (3.2-4.8); Alkaline Phosphatase 63 U/L (46-116); Anion Gap 6 (5-15); Aspartate Aminotransferase 18 U/L (13-40); BUN/Creatinine Ratio 14.9 (10.0-20.0); Bilirubin, Total 0.3 mg/dL (0.2-1.0); Blood Urea Nitrogen 15 mg/dL (9-23); Carbon Dioxide 31 mmol/L (20-31); Chloride 102 mmol/L (98-107); Potassium 4.2 mmol/L (3.5-5.1); Sodium 139 mmol/L (136-145); Total Protein 6.7 g/dL (5.7-8.2)
[2024-07-19 01:20] LABS: Alanine Aminotransferase < 9 U/L (7-40); Calcium 10.7 mg/dL (8.7-10.4); Glucose 138 mg/dL (74-106)
[2024-07-19 01:21] LABS: Blood Alcohol < 3.0 mg/dL (<10)
[2024-07-19 01:36] LABS: Lipase 32 U/L (12-53)
[2024-07-19 02:30] LABS: Basophils # (auto) 0 10 ^3/uL (0-0.2); Basophils % (auto) 0.4 % (0.0-2.0); Eosinophils # (auto) 0.1 10 ^3/uL (0-0.8); Eosinophils % (auto) 1.3 % (0.0-7.0); Hematocrit 40.9 % (41.0-53.0); Hemoglobin 13.6 g/dL (13.5-17.5); Lymphocytes # (auto) 2.4 10 ^3/uL (0.4-5.4); Lymphocytes % (auto) 27.6 % (10.0-50.0); Mean Corpuscular Hemoglobin 31.7 pg (28.0-32.0); Mean Corpuscular Hgb Conc. 33.2 g/dL (32.0-36.0); Mean Corpuscular Volume 95.7 fL (80.0-100.0); Monocytes % (auto) 11.4 % (0.0-12.0); Neutrophils # (auto) 5.2 10 ^3/uL (1.6-8.6); Neutrophils % (auto) 59.3 % (37.0-80.0); Platelet Count (auto) 446 10^3/uL (140-450); Red Blood Cells 4.27 10^6/uL (4.5-5.90); Red Cell Distribution Width 17.4 % (11.8-14.3); White Blood Cell 8.7 10^3/uL (4.4-10.8)
[2024-07-19 02:35] LABS: Urine Bacteria None Seen /hpf (None Seen)
[2024-07-19 03:26] LABS: Urine Blood Negative /uL (Negative); Urine Clarity Clear (Clear); Urine Color Yellow (Yellow); Urine Mucus MODERATE (None Seen); Urine Protein, UAD 1+ (Negative); Urine Squamous Epithelial Cell FEW /hpf (<5); Urine Urobilinogen 4 mg/dL (Negative); Urine WBC 6 /HPF (0-3); Urine pH 7.5 (5.0-9.0)
[2024-07-19 03:55] LABS: Amphetamine Screen, Urine Neg (NEGATIVE); Barbiturate Scree,Urine Neg (NEGATIVE); Benzodiazephine Screen, Urine Neg (NEGATIVE); Cannabinoid Screen, Urine Neg (NEGATIVE); Cocaine Screen, Urine Neg (NEGATIVE); Opiate Scree,Urine Neg (NEGATIVE); Phencyclidine Screen, Urine Neg (NEGATIVE)
[2024-07-19] MEDS: SODIUM CHLORIDE 0.9% 1,000 ML IVB ONE (04:23)
[2024-07-19] MEDS: LIDOCAINE VISCOUS 2% 15ML UD PO ONE (04:34)
[2024-07-19] MEDS: DONNATAL 5ml ORAL Elix (BELLADONNA ALK-PHENOBARB) PO ONE (04:34)
[2024-07-19] MEDS: MAALOX PLUS or MAALOX 30 ML PO ONE (04:34)
[2024-07-19 05:00] VITALS: RESP 18; O2SAT 96
[2024-07-19 05:53] VITALS: BP 141/97; PULSE 85; RESP 20; TEMP 98.1; O2SAT 98
--- NOTE | 2024-07-20 13:22 | ECG ---
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
== END 2024-07-19 06:00 | disposition home or self-care (01) ==
LOC: ER 23:16 → EDBD 23:16 → ER 07-19 06:00
DX: R10.31 Right lower quadrant pain (principal); F10.10 Alcohol abuse, uncomplicated; I10 Essential (primary) hypertension; Z79.82 Long term (current) use of aspirin; Z79.899 Other long term (current) drug therapy; Z87.11 Personal history of peptic ulcer disease
CPT/HCPCS: 36415; 80053; 80307; 80320; 81001; 83605; 83690; 85025; 93005; 96360; 99284; J7030

== ENCOUNTER 2024-07-19 17:40 | Inpatient (IN) | payer MEDICAID ==
[~2024-07-19] VITALS: Ht 175.3 cm; Wt 65.0 kg
[2024-07-19] MEDS: MORPHINE SULFATE 4 MG/ML SYR/VIAL IV ONE (18:08)
[2024-07-19] MEDS: ONDANSETRON HCL 4 MG/2 ML VIAL IV ONE (18:08)
[2024-07-19] MEDS: LORazepam 2MG/ML-1ML VIAL IV ONE (18:08)
[2024-07-19] MEDS: SODIUM CHLORIDE 0.9% 1,000 ML IV ONE (18:09)
[2024-07-19] MEDS: chlordiazePOXIDE HCL 25 MG CAP PO ONE (18:09)
[2024-07-19] MEDS: PANTOPRAZOLE 40 MG/10 ML VIAL INJ IV ONE (18:11)
[2024-07-19 18:15] LABS: Basophils # (auto) 0.1 10 ^3/uL (0-0.2); Basophils % (auto) 0.7 % (0.0-2.0); Eosinophils # (auto) 0.1 10 ^3/uL (0-0.8); Eosinophils % (auto) 0.8 % (0.0-7.0); Hematocrit 38.8 % (41.0-53.0); Lymphocytes # (auto) 2.2 10 ^3/uL (0.4-5.4); Mean Corpuscular Hemoglobin 31.7 pg (28.0-32.0); Mean Corpuscular Hgb Conc. 33.4 g/dL (32.0-36.0); Monocytes # (auto) 0.8 10 ^3/uL (0-1.3); Monocytes % (auto) 9.7 % (0.0-12.0); Neutrophils # (auto) 5.3 10 ^3/uL (1.6-8.6); Neutrophils % (auto) 62.8 % (37.0-80.0); Platelet Count (auto) 421 10^3/uL (140-450); Red Blood Cells 4.08 10^6/uL (4.5-5.90); Red Cell Distribution Width 17.6 % (11.8-14.3); White Blood Cell 8.4 10^3/uL (4.4-10.8)
[2024-07-19 18:45] LABS: Alanine Aminotransferase 12 U/L (7-40); Albumin 4.5 g/dL (3.2-4.8); Alkaline Phosphatase 64 U/L (46-116); Anion Gap 9 (5-15); Aspartate Aminotransferase 18 U/L (13-40); BUN/Creatinine Ratio 11.5 (10.0-20.0); Blood Alcohol 3.7 mg/dL (<10); Blood Urea Nitrogen 10 mg/dL (9-23); Calcium 10.1 mg/dL (8.7-10.4); Carbon Dioxide 29 mmol/L (20-31); Chloride 103 mmol/L (98-107); Potassium 4.1 mmol/L (3.5-5.1); Sodium 141 mmol/L (136-145)
[2024-07-19 18:46] LABS: Bilirubin, Total 0.3 mg/dL (0.2-1.0); Glucose 118 mg/dL (74-106); Total Protein 6.5 g/dL (5.7-8.2)
[2024-07-19 19:04] LABS: Lactic Acid w/Reflex 2.5 mmol/L (0.4-2.0)
[2024-07-19] MEDS: FOLIC ACID 1 MG, MAGNESIUM SULF SDV 50% 8 MEQ, MULTIPLE VITAMIN 10 ML, THIAMINE INJ 100... INJ ONE (19:28)
[2024-07-19 19:32] LABS: Lipase 26 U/L (12-53)
--- NOTE | 2024-07-19 19:50 | ED.PDOC ---
History of Present Illness HPI Comments 54 y.o male with PMHx of anxiety, HTN, depression, PUD, anemia and ETOH dependence presents to the ED for ETOH withdrawal. Per EMS, patient usually drinks 10 shots of whiskey a day, stopped drinking today at 1400 due to abdominal pain/upset stomach, and since has developed tremors, nausea and vomiting. Patient also mentioned "seeing orange" upon ED arrival. Upon assessment at bedside, patient is a poor historian and is unable to provide any additional history.. Chief Complaint: Withdrawal Time Seen by MD: 19:39 Primary Care Provider: VLADISLAV Reviewed Notes: Nurses Notes, Clinical Rn Manager Notes, Medications, Allergies Allergies: Coded Allergies: NO KNOWN ALLERGIES (Unverified , 04/16/20) Home Meds Active Scripts Metronidazole (Flagyl) 500 Mg Tab, 1 TAB PO TID, #21 TAB Prov:BRE BROWN MD 07/05/24 Prochlorperazine Maleate (Compazine) 10 Mg Tb, 1 TAB PO TID for 10 Days, #30 TAB 3 Refills Prov:LYNETTE GRIFFIN MD 06/19/24 Omeprazole (Gnp Omeprazole) 20 Mg Tab, 1 TAB PO BID for 10 Days, #20 TAB 1 Refill Prov:LYNETTE GRIFFIN MD 06/19/24 Aluminum Hydroxide-Mag Carb (Gaviscon Extra Strength) 1 Chw Chw, 1 CHW PO QID for 10 Days, #40 TAB.CHEW Prov:LYNETTE GRIFFIN MD 06/19/24 Cyanocobalamin (B12) 1,000 Mcg Tab, 1000 MCG PO DAILY for 7 Days, #7 TAB 0 Refills Prov:JEANETTE MICHELE MD 06/06/24 Folic Acid (Folate) 400 Mcg Tab, 400 MCG PO DAILY for 30 Days, #30 TAB 0 Refills Prov:JEANETTE MICHELE MD 06/06/24 Thiamine Mononitrate (B1) 100 Mg Tab, 100 MG PO DAILY for 30 Days, #30 TAB 1 Refill Prov:JEANETTE MICHELE MD 06/06/24 Reported Medications Diphenhydramine Hcl (Diphenhydramine Hcl) 25 Mg Cap, 25 MG PO DAILYP PRN for ALCOHOL WITHDRAWAL SYMPTOMS, MG 03/13/24 Aspirin (Aspir-Low) 81 Mg Tab, 81 MG PO DAILY for 30 Days, MG 03/13/24 Alendronate Sodium (Alendronate Sodium) 70 Mg Tab, 1 TAB PO QWEEKLY 01/21/24 Information Source: Emergency Med Personnel Mode of Arrival: EMS Severity: Moderate Timing: Hours Duration: Since onset Past Medical History PAST MEDICAL HISTORY: Anemia, Anxiety, Depression, HTN, PUD Surgical History: Denies all surgeries Family History Family History: Reviewed,noncontributory to illness Social History Smoker: Non-Smoker Alcohol: Heavy Drugs: Denies Drug Use Lives In: Home All Other Systems: Reviewed and Negative (Comprehensive systems review obtained and negative except for what is stated in the HPI.) Physical Exam General Appearance: Moderate Distress HEENT: PERRL/EOMI, Other (Moist mucous membranes) Neck: Full Range of Motion, Non-Tender, Normal Inspection, Supple Respiratory: Lungs Clear, No Accessory Muscle Use, No Respiratory Distress, Normal Breath Sounds Cardiovascular: No Edema, No JVD, Tachycardia Breast Exam: Deferred Gastrointestinal: Non Tender, Soft Genitalia: Deferred Pelvic: Deferred Rectal: Deferred Extremities: Normal inspection, Normal range of motion, Non-tender, No pedal edema Neurologic: Alert (Oriented x3), Other (Anxious, tremulous, moves all extremities, no gross focal deficit.) Cerebellar Function: NOT DONE Reflexes: NOT DONE Skin: Dry, Normal Color, Warm Lymphatic: NOT DONE Was a procedure done? Was a procedure done?: No Differential Dx Considerations may include: ETOH withdrawal, Dehydration, electrolyte imbalance, alcohol/drug intoxication, among others X-Ray, Labs, Meds, VS Vital Signs Date Time Temp Pulse Resp B/P (MAP) Pulse Ox O2 Delivery O2 Flow Rate FiO2 07/19/24 19:30 105 12 146/74 07/19/24 18:33 Room Air* 0 21 07/19/24 18:08 107 17 174/101 07/19/24 18:00 97.4 107 17 174/104 (127) 100 97.4 07/19/24 17:45 98.2 120 20 163/96 (118) 100 Lab Test 07/19/24 19:04 07/19/24 18:04 Range/Units Troponin I High Sensitivity 8 8 </=54 ng/L White Blood Count 8.4 4.4-10.8 10^3/uL Red Blood Count 4.08 L 4.5-5.90 10^6/uL Hemoglobin 13.0 L 13.5-17.5 g/dL Hematocrit 38.8 L 41.0-53.0 % Mean Corpuscular Volume 95.0 80.0-100.0 fL Mean Corpuscular Hemoglobin 31.7 28.0-32.0 pg Mean Corpuscular Hemoglobin Concent 33.4 32.0-36.0 g/dL Red Cell Distribution Width 17.6 H 11.8-14.3 % Platelet Count 421 140-450 10^3/uL Mean Platelet Volume 7.0 6.9-10.8 fL Neutrophils (%) (Auto) 62.8 37.0-80.0 % Lymphocytes (%) (Auto) 26.0 10.0-50.0 % Monocytes (%) (Auto) 9.7 0.0-12.0 % Eosinophils (%) (Auto) 0.8 0.0-7.0 % Basophils (%) (Auto) 0.7 0.0-2.0 % Neutrophils # (Auto) 5.3 1.6-8.6 10 ^3/uL Lymphocytes # (Auto) 2.2 0.4-5.4 10 ^3/uL Monocytes # (Auto) 0.8 0-1.3 10 ^3/uL Eosinophils # (Auto) 0.1 0-0.8 10 ^3/uL Basophils # (Auto) 0.1 0-0.2 10 ^3/uL Nucleated Red Blood Cells 0.0 % Sodium Level 141 136-145 mmol/L Potassium Level 4.1 3.5-5.1 mmol/L Chloride Level 103 98-107 mmol/L Carbon Dioxide Level 29 20-31 mmol/L Anion Gap 9 5-15 Blood Urea Nitrogen 10 9-23 mg/dL Creatinine 0.87 0.700-1.30 mg/dL Glomerular Filtration Rate Calc 103 >90 mL/min BUN/Creatinine Ratio 11.5 10.0-20.0 Serum Glucose 118 H 74-106 mg/dL Lactic Acid Level 2.5 *H 0.4-2.0 mmol/L Calcium Level 10.1 8.7-10.4 mg/dL Total Bilirubin 0.3 0.2-1.0 mg/dL Aspartate Amino Transferase (AST) 18 13-40 U/L Alanine Aminotransferase (ALT) 12 7-40 U/L Alkaline Phosphatase 64 46-116 U/L Total Protein 6.5 5.7-8.2 g/dL Albumin 4.5 3.2-4.8 g/dL Lipase 26 12-53 U/L Plasma/Serum Blood Alcohol 3.7 <10 mg/dL Current Medications Medications (Trade) Dose Ordered Sig/Rick Route Start Time Stop Time Status Last Admin Sodium Chloride 1,000 ml @ 1,000 mls/hr Q1H ONCE IV 07/19/24 18:00 07/19/24 18:59 DC 07/19/24 18:09 Ondansetron HCl (Zofran) 4 mg ONCE ONCE IV 07/19/24 18:00 07/19/24 18:01 DC 07/19/24 18:08 Morphine Sulfate 4 mg ONCE ONCE IV 07/19/24 18:00 07/19/24 18:01 DC 07/19/24 18:08 Pantoprazole Sodium (Protonix) 40 mg ONCE ONCE IV 07/19/24 18:00 07/19/24 18:01 DC 07/19/24 18:11 Lorazepam (Ativan Inj) 2 mg ONCE ONCE IV 07/19/24 18:00 07/19/24 18:01 DC 07/19/24 18:08 Chlordiazepoxide HCl (Librium Capsule) 50 mg ONCE ONCE PO 07/19/24 18:00 07/19/24 18:01 DC 07/19/24 18:09 Folic Acid 1 mg/ Magnesium Sulfate 8 meq/ Multivitamins 10 ml/Thiamine HCl 100 mg/Sodium Chloride 1,013.2 ml @ 126.247 mls/hr ONCE ONCE INJ 07/19/24 18:00 07/20/24 02:01 07/19/24 19:28 X-Ray, Labs, Meds, VS Comment 54-year-old male with a history of anxiety, HTN, depression, PUD, anemia and ETOH dependence presenting with anxiety and tremors after he stopped drinking alcohol Vitals remarkable for heart rate 120, BP 163/96 Exam remarkable for tremulousness and tachycardia Rhythm strip independently interpreted by me: Sinus tach, rate 121, no ectopy. CBC, metabolic panel and alcohol level unremarkable. Lactate 2.5 Patient treated with the following in the ED: 1 L 0.9 normal saline IV bolus, morphine 4 mg IV, Zofran 4 mg IV, Protonix 40 mg IV, Ativan 2 mg IV, Librium 50 mg p.o., banana bag IV On re-evaluation, patient is somnolent but arousable, are stable. Plan is to admit the patient for treatment of alcohol withdrawal. Time of 1ST Reevaluation: 19:46 Reevaluation 1ST: Unchanged Patient Education/Counseling: Other Family Education/Counseling: No Family Present Departure 1 Departure Time of Disposition: 20:23 Impression: Primary Impression: Alcohol withdrawal Qualified Codes: F10.932 - Alcohol use, unspecified with withdrawal with perceptual disturbance Disposition: ADMITTED INPATIENT Admit to: Tele Condition: Guarded Critical Care Note Critical Care Time?: No Stability Stability form required: No I personally scribed for MAYKEL TAMEZ MD ([facility]) on 07/19/24 at 19:50. Electronically submitted by Marsha Frost ([facility]). MAYKEL TAMEZ MD Jul 19, 2024 19:50
[2024-07-19 21:14] LABS: Urine Bacteria None Seen /hpf (None Seen)
[2024-07-19 21:30] LABS: Urine Amorphous Crystal FEW /hpf (None Seen); Urine Blood Negative /uL (Negative); Urine Clarity Clear (Clear); Urine Color Light-Yellow (Yellow); Urine Protein, UAD Negative (Negative); Urine Specific Gravity 1.011 (1.001-1.035); Urine Squamous Epithelial Cell None Seen /hpf (<5); Urine Urobilinogen Normal (Negative); Urine WBC 1 /HPF (0-3); Urine pH 7.5 (5.0-9.0)
[2024-07-19] MEDS ORDERED: MORPHINE SULFATE INJ 2 MG/ml SYRG IV PRN (22:00)
[2024-07-19] MEDS ORDERED: NITROGLYCERIN 0.4 MG SL TAB SL PRN (22:00)
[2024-07-19] MEDS: SODIUM CHLOR 0.9% PF (SALINE LOCK) 10ML VIAL/SYR IV SCH (22:37)
[2024-07-19] MEDS: SODIUM CHLORIDE 0.9% 1,000 ML IV SCH (22:46)
[2024-07-19 23:43] LABS: Amphetamine Screen, Urine Neg (NEGATIVE); Barbiturate Scree,Urine Neg (NEGATIVE); Benzodiazephine Screen, Urine Neg (NEGATIVE); Cannabinoid Screen, Urine Neg (NEGATIVE); Cocaine Screen, Urine Neg (NEGATIVE); Opiate Scree,Urine Pos (NEGATIVE); Phencyclidine Screen, Urine Neg (NEGATIVE)
[2024-07-19 23:53] LABS: COVID19 ANTIGEN SOFIA FIA NEGATIVE (NEGATIVE); Rapid Influenza A Negative (Negative); Rapid Influenza B Negative (Negative)
--- NOTE | 2024-07-20 01:29 | DVHHPRES ---
History of Present Illness Resident Creating Document: KAMARI NUNEZ RESIDENT History of Present Illness DALTON MANCINI 54-year-old male with a PMH of anxiety, depression, HTN, PUD presented to the ED with the chief complaints of alcohol withdrawal since today morning. Patient reported he has a chronic drinker, drinks 10-15 drinks per day, his last drink was yesterday afternoon 2:00 a.m.. Since today morning patient has been developed tremors, nausea, vomiting, seeing orange colo which usually not there. This poor historian but not altered. On my assessment patient denies fever, diarrhea, chest pain, abdominal pain, and other acute associated symptoms PMH: Anxiety, HTN, depression, PUD, PSH: Denies Family history: Not significant Social history: Lives with a brother. Drinks 10-15 drinks per day, smokes less than 1 pack per day but denies other drug abuse Allergies: No known allergies Review of Systems Constitutional: Yes: Malaise Eyes: No: Pain, Vision change, Conjunctivae inflammation, Eyelid inflammation, Other, Redness ENT: No: Ear pain, Ear discharge, Nose pain, Nose discharge, Nose congestion, Mouth pain, Mouth swelling, Throat pain, Throat swelling, Other Respiratory: No: Cough, Dry, Shortness of breath, SOB with excertion, Wheezing, Hemoptysis, Pleuritic Pain, Sputum, Wheezing, Other Cardiovascular: No: Chest Pain, Palpitations, Orthopnea, Paroxysmal Noc. Dyspnea, Edema, Lt Headedness, Other Gastrointestinal: Nausea, Vomiting Genitourinary: No Dysuria, No Frequency, No Incontinence, No Hematuria, No Retention, No Other Musculoskeletal: No: other, neck pain, shoulder pain, arm pain, back pain, hand pain, leg pain, foot pain Skin: No: Rash, Lesions, Jaundice, Bruising, Other Neurological: No: Weakness, Numbness, Incoordination, Change in speech, Confusion, Seizures, Other Allergies: Coded Allergies: NO KNOWN ALLERGIES (Unverified , 04/16/20) Medications Current Medications Medications Dose Ordered Sig/Rick Route Start Time Stop Time Status Last Admin Dose Admin Sodium Chloride 10 ml Q8HR IV 07/19/24 22:00 07/19/24 22:37 10 ML Sodium Chloride 1,000 ml @ 120 mls/hr Q8H20M IV 07/19/24 22:00 07/19/24 22:46 120 MLS/HR Ondansetron HCl 4 mg Q4HP PRN IV 07/19/24 22:00 Enoxaparin Sodium 40 mg DAILY SC 07/20/24 10:00 Acetaminophen 650 mg Q6HP PRN PO 07/19/24 22:00 Nitroglycerin 0.4 mg Q5MINP PRN SL 07/19/24 22:00 Morphine Sulfate 2 mg Q30M PRN IV 07/19/24 22:00 Pantoprazole Sodium 40 mg DAILY IV 07/20/24 10:00 Folic Acid 1 mg/ Multivitamins 10 ml/Magnesium Sulfate 8 meq/ Thiamine HCl 100 mg/Dextrose 1,013.2 ml @ 125.001 mls/hr DAILY@1800 INJ 07/20/24 18:00 Exam Vital Signs Vital Signs Date Time Temp Pulse Resp B/P (MAP) Pulse Ox O2 Delivery O2 Flow Rate FiO2 07/20/24 00:00 82 07/20/24 00:00 18 127/37 (67) 93 07/19/24 20:00 97.9 97.9 07/19/24 19:30 Room Air* 0 21 Exam Pt is lying on bed General Appearance: Drowsy but, Oriented X3, HEENT: Atraumatic, Mucous membranes dry Respiratory: Clear to auscultation, Normal air movement, Cardiovascular: Regular rate, Normal S1, Normal S2, Abdominal: Active bowel sounds, Soft, no distention, no tenderness Extremities: No edema, Normal pulses, No tenderness/swelling Skin: No Significant rash, Neuro: Normal speech, sensorimotor deficits none Psych/Mental Status: Mental status NL, Mood NL Labs/Xrays Labs Test 07/19/24 23:09 07/19/24 23:07 07/19/24 20:58 07/19/24 19:04 Range/Units D-Dimer, Quantitative < 0.19 0.0-0.49 mg/L FEU Ammonia < 10 L 11-32 umol/L Troponin I High Sensitivity 9 </=54 ng/L Influenza Type A Antigen Negative Negative Influenza Type B Antigen Negative Negative SARS-CoV-2 Antigen (Rapid) Negative NEGATIVE Urine Color Light-yellow Yellow Urine Clarity Clear Clear Urine pH 7.5 5.0-9.0 Urine Specific [place] 1.011 1.001-1.035 Urine Protein Negative Negative Urine Ketones Negative Negative Urine Blood Negative Negative /uL Urine Nitrite Negative Negative Urine Bilirubin Negative Negative Urine Urobilinogen Normal Negative mg/dL Urine Leukocyte Esterase Negative Negative /uL Urine RBC <1 0 - 3 /hpf Urine Microscopic WBC 1 0-3 /HPF Urine Squamous Epithelial Cells None seen <5 /hpf Urine Amorphous Crystals Few None Seen /hpf Urine Bacteria None seen None Seen /hpf Urine Glucose Normal Normal mg/dL Urine Opiates Screen Pos NEGATIVE Urine Fentanyl Screen Neg NEGATIVE Urine Barbiturates Screen Neg NEGATIVE Urine Phencyclidine Screen Neg NEGATIVE Urine Amphetamines Screen Neg NEGATIVE Urine Benzodiazepines Screen Neg NEGATIVE Urine Cocaine Screen Neg NEGATIVE Urine Cannabinoids Screen Neg NEGATIVE Thyroid Stimulating Hormone (TSH) 0.88 0.55-4.78 uIU/mL Test 07/19/24 18:04 Range/Units White Blood Count 8.4 4.4-10.8 10^3/uL Red Blood Count 4.08 L 4.5-5.90 10^6/uL Hemoglobin 13.0 L 13.5-17.5 g/dL Hematocrit 38.8 L 41.0-53.0 % Mean Corpuscular Volume 95.0 80.0-100.0 fL Mean Corpuscular Hemoglobin 31.7 28.0-32.0 pg Mean Corpuscular Hemoglobin Concent 33.4 32.0-36.0 g/dL Red Cell Distribution Width 17.6 H 11.8-14.3 % Platelet Count 421 140-450 10^3/uL Mean Platelet Volume 7.0 6.9-10.8 fL Neutrophils (%) (Auto) 62.8 37.0-80.0 % Lymphocytes (%) (Auto) 26.0 10.0-50.0 % Monocytes (%) (Auto) 9.7 0.0-12.0 % Eosinophils (%) (Auto) 0.8 0.0-7.0 % Basophils (%) (Auto) 0.7 0.0-2.0 % Neutrophils # (Auto) 5.3 1.6-8.6 10 ^3/uL Lymphocytes # (Auto) 2.2 0.4-5.4 10 ^3/uL Monocytes # (Auto) 0.8 0-1.3 10 ^3/uL Eosinophils # (Auto) 0.1 0-0.8 10 ^3/uL Basophils # (Auto) 0.1 0-0.2 10 ^3/uL Nucleated Red Blood Cells 0.0 % Sodium Level 141 136-145 mmol/L Potassium Level 4.1 3.5-5.1 mmol/L Chloride Level 103 98-107 mmol/L Carbon Dioxide Level 29 20-31 mmol/L Anion Gap 9 5-15 Blood Urea Nitrogen 10 9-23 mg/dL Creatinine 0.87 0.700-1.30 mg/dL Glomerular Filtration Rate Calc 103 >90 mL/min BUN/Creatinine Ratio 11.5 10.0-20.0 Serum Glucose 118 H 74-106 mg/dL Lactic Acid Level 2.5 *H 0.4-2.0 mmol/L Calcium Level 10.1 8.7-10.4 mg/dL Magnesium Level 1.6 1.6-2.6 mg/dL Total Bilirubin 0.3 0.2-1.0 mg/dL Aspartate Amino Transferase (AST) 18 13-40 U/L Alanine Aminotransferase (ALT) 12 7-40 U/L Alkaline Phosphatase 64 46-116 U/L B-Type Natriuretic Peptide 11.29 0-100 pg/mL Total Protein 6.5 5.7-8.2 g/dL Albumin 4.5 3.2-4.8 g/dL Lipase 26 12-53 U/L Plasma/Serum Blood Alcohol 3.7 <10 mg/dL Assessment/Plan Assessment/Plan # alcohol withdrawal -CIWA score on my assessment is 5 -given 1 dose of Librium -Ativan p.r.n. -banana bag # alcohol dependence # tobacco abuser and tobacco dependence -counseled regarding cessation for more than 17 minute # PUD -Protonix # hypertensive urgency likely from withdrawal -monitor for now # depression and anxiety without suicidal or homicidal ideation -monitor for the symptoms PUD PPX: Protonix VTE PPX: Lovenox Diet: Liquid diet Goals of care discussed with the patient for more than 27 minutes: Full code status Case discussed with Dr. Reyes and nurse Plan discussed with: Patient My Orders Orders - KAMARI NUNEZ RESIDENT Procedure Category Date Status Time Admit ADMIT 07/19/24 Transmitted 21:[address] 07/19/24 In Process 21:52 Code Status CODE 07/19/24 Transmitted 21:52 Full Liq Diet DIET 07/20/24 Transmitted Breakfast Sodium Chloride Lock PHA 07/19/24 In Process (Saline Lock Ns) 22:00 Sodium Chloride 0.9% PHA 07/19/24 In Process 22:00 Ondansetron Hcl PHA 07/19/24 In Process (Zofran) 22:00 Enoxaparin Sodium PHA 07/20/24 In Process (Lovenox) 10:00 Complete Blood Count LAB 07/20/24 Logged 04:00 Comprehensive LAB 07/20/24 Logged Metabolic Panel 04:00 Condition: Stable RD 07/19/24 In Process 21:52 Acetaminophen Tablet PHA 07/19/24 In Process (Tylenol Tablet) 22:00 Nitroglycerin PHA 07/19/24 In Process Sublingual (Ntrostat 22:00 Morphine Sulfate PHA 07/19/24 In Process Injection 22:00 Oxygen By Nasal RT 07/19/24 Transmitted Cannula 21:[address] For Chest RD 07/19/24 In Process Pain 21:52 Notify Md Of Changes RD 07/19/24 In Process From Base 21:52 [employer] For RD 07/19/24 In Process 24 Hours 21:[address] 07/19/24 In Process Protocol 21:[address] 07/19/24 In Process Every Shift 21:52 Pantoprazole PHA 07/20/24 In Process (Protonix) 10:00 Folic Acid... PHA 07/20/24 In Process 18:00 Lorazepam 2mg/Ml Inj PHA 07/20/24 In Process (Ativan Inj) 01:30 Date of Service: Jul 19, 2024 Billing Provider: JESUS REYES MD Common Visit Codes: [id number] INP/OBS CARE (HIGH) KAMARI NUNEZ RESIDENT Jul 20, 2024 01:29 JESUS REYES MD Jul 20, 2024 14:10
[2024-07-20] MEDS ORDERED: LORazepam 2MG/ML-1ML VIAL IV PRN (01:30)
[2024-07-20 04:30] LABS: Basophils # (auto) 0 10 ^3/uL (0-0.2); Basophils % (auto) 0.6 % (0.0-2.0); Eosinophils # (auto) 0.2 10 ^3/uL (0-0.8); Eosinophils % (auto) 2.8 % (0.0-7.0); Hematocrit 35.1 % (41.0-53.0); Hemoglobin 11.5 g/dL (13.5-17.5); Lymphocytes # (auto) 2.6 10 ^3/uL (0.4-5.4); Lymphocytes % (auto) 33.3 % (10.0-50.0); Mean Corpuscular Hemoglobin 31.7 pg (28.0-32.0); Mean Corpuscular Hgb Conc. 32.9 g/dL (32.0-36.0); Mean Corpuscular Volume 96.5 fL (80.0-100.0); Monocytes # (auto) 0.8 10 ^3/uL (0-1.3); Monocytes % (auto) 10.3 % (0.0-12.0); Neutrophils # (auto) 4.2 10 ^3/uL (1.6-8.6); Platelet Count (auto) 346 10^3/uL (140-450); Red Blood Cells 3.64 10^6/uL (4.5-5.90); Red Cell Distribution Width 17.3 % (11.8-14.3); White Blood Cell 7.8 10^3/uL (4.4-10.8)
[2024-07-20 05:20] LABS: Alkaline Phosphatase 50 U/L (46-116); Anion Gap 4 (5-15); Carbon Dioxide 30 mmol/L (20-31); Potassium 4.1 mmol/L (3.5-5.1); Sodium 142 mmol/L (136-145)
[2024-07-20 05:21] LABS: Albumin 3.4 g/dL (3.2-4.8); Aspartate Aminotransferase 14 U/L (13-40); BUN/Creatinine Ratio 11.5 (10.0-20.0)
[2024-07-20 05:33] LABS: Bilirubin, Total 0.4 mg/dL (0.2-1.0)
[2024-07-20 06:15] LABS: Alanine Aminotransferase < 9 U/L (7-40); Blood Urea Nitrogen 9 mg/dL (9-23); Calcium 8.2 mg/dL (8.7-10.4); Chloride 108 mmol/L (98-107); Glucose 106 mg/dL (74-106); Total Protein 4.7 g/dL (5.7-8.2)
[2024-07-20 07:58] VITALS: PULSE 69; RESP 14; O2SAT 96
[2024-07-20] MEDS: PANTOPRAZOLE 40 MG/10 ML VIAL INJ IV SCH (10:30)
[2024-07-20] MEDS: ENOXAPARIN SOD 40 MG/0.4 ML SYRINGE SC SCH (10:31)
--- NOTE | 2024-07-20 15:18 | DVHPN2 ---
Subjective Patient continues to report having tremors as well as auditory hallucinations. Reviewed: Care Plan, H&P, Medications Changes from previous H/P or p: No Changes General: Per HPI Eyes: No Pain, No Vision change, No Conjunctivae inflammation, No Eyelid inflammation, No Other, No Redness ENT: No Ear pain, No Ear discharge, No Nose pain, No Nose discharge, No Nose congestion, No Mouth pain, No Mouth swelling, No Throat pain, No Throat swelling, No Other Cardiovascular: No Chest Pain, No Palpitations, No Orthopnea, No Paroxysmal Noc. Dyspnea, No Edema, No Lt Headedness, No Other Respiratory: No Cough, No Dry, No Shortness of breath, No SOB with excertion, No Wheezing, No Hemoptysis, No Pleuritic Pain, No Sputum, No Other Gastrointestinal: Nausea, Vomiting Genitourinary: No Dysuria, No Frequency, No Incontinence, No Hematuria, No Retention, No Other Musculoskeletal: No other, No neck pain, No shoulder pain, No arm pain, No back pain, No hand pain, No leg pain, No foot pain Skin: No Rash, No Lesions, No Jaundice, No Bruising, No Other Objective Vitals Vital Signs Date Time Temp Pulse Resp B/P (MAP) Pulse Ox O2 Delivery O2 Flow Rate FiO2 07/20/24 13:00 85 135/62 (86) 100 07/20/24 07:58 14 Nasal Cannula* 2 28 07/19/24 20:00 97.9 97.9 Intake/Output Intake and Output 07/20/24 07:00 Intake Total 1723.729 ml Balance 1723.729 ml Intake IV Total 1723.729 ml General Appearance: Alert, Oriented X3, Cooperative, mild distress HEENT: Atraumatic, PERRLA Cardiovascular: Normal S1, Normal S2 Abdomen: Normal bowel sounds, Soft, No tenderness Musculoskeletal: Normal sensory function, Normal motor function Extremities: No clubbing, No cyanosis, Normal pulses, No tenderness/swelling Skin: Dry, Intact Psych/Mental Status: Mental status NL, Mood NL Medications Current Medications Medications Dose Ordered Sig/Rick Route Start Time Stop Time Status Last Admin Dose Admin Sodium Chloride 10 ml Q8HR IV 07/19/24 22:00 07/20/24 14:03 10 ML Sodium Chloride 1,000 ml @ 120 mls/hr Q8H20M IV 07/19/24 22:00 07/20/24 14:35 120 MLS/HR Ondansetron HCl 4 mg Q4HP PRN IV 07/19/24 22:00 Enoxaparin Sodium 40 mg DAILY SC 07/20/24 10:00 07/20/24 10:31 40 MG Acetaminophen 650 mg Q6HP PRN PO 07/19/24 22:00 Nitroglycerin 0.4 mg Q5MINP PRN SL 07/19/24 22:00 Morphine Sulfate 2 mg Q30M PRN IV 07/19/24 22:00 Pantoprazole Sodium 40 mg DAILY IV 07/20/24 10:00 07/20/24 10:30 40 MG Folic Acid 1 mg/ Multivitamins 10 ml/Magnesium Sulfate 8 meq/ Thiamine HCl 100 mg/Dextrose 1,013.2 ml @ 125.001 mls/hr DAILY@1800 INJ 07/20/24 18:00 Lorazepam 1 mg Q5MINP PRN IV 07/20/24 01:30 Laboratory Results Laboratory Tests 07/20/24 03:56 Chemistry Test 07/19/24 18:04 07/20/24 03:56 Albumin 4.5 g/dL (3.2-4.8) 3.4 g/dL (3.2-4.8) Calcium Level 10.1 mg/dL (8.7-10.4) 8.2 mg/dL (8.7-10.4) L Magnesium Level 1.6 mg/dL (1.6-2.6) Total Protein 6.5 g/dL (5.7-8.2) 4.7 g/dL (5.7-8.2) L Coagulation Test 07/19/24 23:09 D-Dimer, Quantitative < 0.19 mg/L FEU (0.0-0.49) Lipid panel Test 07/19/24 18:04 Lipase 26 U/L (12-53) Cardiac Markers Test 07/19/24 18:04 B-Type Natriuretic Peptide 11.29 pg/mL (0-100) LFT Test 07/19/24 18:04 07/20/24 03:56 Alanine Aminotransferase (ALT) 12 U/L (7-40) < 9 U/L (7-40) Alkaline Phosphatase 64 U/L (46-116) 50 U/L (46-116) Aspartate Amino Transferase (AST) 18 U/L (13-40) 14 U/L (13-40) Total Bilirubin 0.3 mg/dL (0.2-1.0) 0.4 mg/dL (0.2-1.0) HgA1c, TSH Test 07/19/24 19:04 Thyroid Stimulating Hormone (TSH) 0.88 uIU/mL (0.55-4.78) Urinalysis Test 07/19/24 20:58 Urine Color Light-yellow (Yellow) Urine Clarity Clear (Clear) Urine pH 7.5 (5.0-9.0) Urine Specific [place] 1.011 (1.001-1.035) Urine Protein Negative (Negative) Urine Ketones Negative (Negative) Urine Blood Negative /uL (Negative) Urine Nitrite Negative (Negative) Urine Bilirubin Negative (Negative) Urine Urobilinogen Normal mg/dL (Negative) Urine Leukocyte Esterase Negative /uL (Negative) Urine RBC <1 /hpf (0 - 3) Urine Microscopic WBC 1 /HPF (0-3) Urine Squamous Epithelial Cells None seen /hpf (<5) Urine Amorphous Crystals Few /hpf (None Seen) Urine Bacteria None seen /hpf (None Seen) Urine Glucose Normal mg/dL (Normal) Labs and/or images reviewed: Labs reviewed by me, Image(s) reviewed by me Assessment/Plan Assessment/Plan Impression: -acute alcohol withdrawal with delirium tremens -abdominal pain -history of alcoholism Plan: -start Librium 10 mg every 6 hours -IV lorazepam p.r.n. breakthrough seizures or alcohol withdrawal symptoms -continue PPI, add Carafate -continue banana bag daily -social service consultation for alcohol rehabilitation resources Total time spent with patient discussing and formulating plan of care: 35 minutes. This medical document was created using an electronic medical record system with [employer] dictation system. Although this document has been carefully reviewed, there may still be some phonetic and typographical errors. These areas are purely typographical due to imperfections of the software programs, and do not reflect any compromise in the patient's medical care. Plan discussed with: Patient, Other (RN) Date of Service: Jul 20, 2024 Billing Provider: EDYTA DUMONT NP Common Visit Codes: [id number] INP/OBS CARE(HIGH) EDYTA DUMONT NP Jul 20, 2024 15:18
[2024-07-20 16:53] VITALS: BP 155/90; PULSE 80; RESP 16; TEMP 98.7; O2SAT 100
[2024-07-20 17:00] VITALS: BP 159/88; PULSE 73; PULSE 80; RESP 16; TEMP 98.7; O2SAT 100
[2024-07-20] MEDS: chlordiazePOXIDE HCL 5 MG CAP PO SCH (18:36)
[2024-07-20] MEDS: FOLIC ACID 1 MG, MULTIPLE VITAMIN 10 ML, MAGNESIUM SULF SDV 50% 8 MEQ, THIAMINE INJ 100... INJ SCH (18:55)
[2024-07-20 20:00] VITALS: PULSE 83; PULSE 94; RESP 18; O2SAT 98
[2024-07-20 21:00] VITALS: BP 137/87; PULSE 94; RESP 18; TEMP 98; O2SAT 98
[2024-07-20] MEDS: SUCRALFATE 1 GM/10 ML ORAL SUSP PO SCH (21:32)
[2024-07-21] VITALS (11 sets, daily range): BP systolic 118–168; BP diastolic 70–99; PULSE 69–85; RESP 16–18; TEMP 97.7–98.1; O2SAT 95–100
--- NOTE | 2024-07-21 09:19 | DVHPN2 ---
Subjective Patient continues to report having tremors as well as auditory hallucinations. Reviewed: Care Plan, H&P, Medications Changes from previous H/P or p: No Changes General: Per HPI Eyes: No Pain, No Vision change, No Conjunctivae inflammation, No Eyelid inflammation, No Other, No Redness ENT: No Ear pain, No Ear discharge, No Nose pain, No Nose discharge, No Nose congestion, No Mouth pain, No Mouth swelling, No Throat pain, No Throat swelling, No Other Cardiovascular: No Chest Pain, No Palpitations, No Orthopnea, No Paroxysmal Noc. Dyspnea, No Edema, No Lt Headedness, No Other Respiratory: No Cough, No Dry, No Shortness of breath, No SOB with excertion, No Wheezing, No Hemoptysis, No Pleuritic Pain, No Sputum, No Other Gastrointestinal: Nausea, Vomiting Genitourinary: No Dysuria, No Frequency, No Incontinence, No Hematuria, No Retention, No Other Musculoskeletal: No other, No neck pain, No shoulder pain, No arm pain, No back pain, No hand pain, No leg pain, No foot pain Skin: No Rash, No Lesions, No Jaundice, No Bruising, No Other Objective Vitals Vital Signs Date Time Temp Pulse Resp B/P (MAP) Pulse Ox O2 Delivery O2 Flow Rate FiO2 07/21/24 05:00 97.7 69 18 131/78 (95) 98 97.7 07/20/24 20:00 Room Air* 0 21 Intake/Output Intake and Output 07/21/24 07:00 Intake Total 2890 ml Output Total 2060 ml Balance 830 ml Intake Oral 930 ml IV Total 1960 ml Output Urine Total 2060 ml General Appearance: Alert, Oriented X3, Cooperative, mild distress HEENT: Atraumatic, PERRLA Cardiovascular: Normal S1, Normal S2 Abdomen: Normal bowel sounds, Soft, No tenderness Musculoskeletal: Normal sensory function, Normal motor function Extremities: No clubbing, No cyanosis, Normal pulses, No tenderness/swelling Skin: Dry, Intact Psych/Mental Status: Mental status NL, Mood NL Medications Current Medications Medications Dose Ordered Sig/Rick Route Start Time Stop Time Status Last Admin Dose Admin Sodium Chloride 10 ml Q8HR IV 07/19/24 22:00 07/21/24 05:45 10 ML Ondansetron HCl 4 mg Q4HP PRN IV 07/19/24 22:00 Enoxaparin Sodium 40 mg DAILY SC 07/20/24 10:00 07/20/24 10:31 40 MG Acetaminophen 650 mg Q6HP PRN PO 07/19/24 22:00 Nitroglycerin 0.4 mg Q5MINP PRN SL 07/19/24 22:00 Morphine Sulfate 2 mg Q30M PRN IV 07/19/24 22:00 Pantoprazole Sodium 40 mg DAILY IV 07/20/24 10:00 07/20/24 10:30 40 MG Folic Acid 1 mg/ Multivitamins 10 ml/Magnesium Sulfate 8 meq/ Thiamine HCl 100 mg/Dextrose 1,013.2 ml @ 125.001 mls/hr DAILY@1800 INJ 07/20/24 18:00 07/20/24 18:55 125.001 MLS/HR Chlordiazepoxide HCl 10 mg QID PO 07/20/24 18:00 07/21/24 05:43 10 MG Sucralfate 1 gm BID@0600,2200 PO 07/20/24 22:00 07/21/24 05:42 1 GM Lorazepam 1 mg Q6HP PRN IV 07/20/24 15:15 Laboratory Results Laboratory Tests 07/20/24 03:56 Urinalysis Test 07/19/24 20:58 Urine Color Light-yellow (Yellow) Urine Clarity Clear (Clear) Urine pH 7.5 (5.0-9.0) Urine Specific [place] 1.011 (1.001-1.035) Urine Protein Negative (Negative) Urine Ketones Negative (Negative) Urine Blood Negative /uL (Negative) Urine Nitrite Negative (Negative) Urine Bilirubin Negative (Negative) Urine Urobilinogen Normal mg/dL (Negative) Urine Leukocyte Esterase Negative /uL (Negative) Urine RBC <1 /hpf (0 - 3) Urine Microscopic WBC 1 /HPF (0-3) Urine Squamous Epithelial Cells None seen /hpf (<5) Urine Amorphous Crystals Few /hpf (None Seen) Urine Bacteria None seen /hpf (None Seen) Urine Glucose Normal mg/dL (Normal) Labs and/or images reviewed: Labs reviewed by me, Image(s) reviewed by me Assessment/Plan Assessment/Plan Impression: -acute alcohol withdrawal with delirium tremens -abdominal pain -history of alcoholism Plan: -events: Patient reports resolution of auditory hallucinations. No longer presenting tremors. -discontinue p.o. Librium, p.r.n. IV Ativan for withdrawal symptoms -continue PPI, add Carafate -MVI, thiamine daily -social service consultation for alcohol rehabilitation resources Total time spent with patient discussing and formulating plan of care: 35 minutes. This medical document was created using an electronic medical record system with [employer] dictation system. Although this document has been carefully reviewed, there may still be some phonetic and typographical errors. These areas are purely typographical due to imperfections of the software programs, and do not reflect any compromise in the patient's medical care. Plan discussed with: Patient, Other (RN) My Orders Orders - EDYTA DUMONT NP Procedure Category Date Status Time Chlordiazepoxide Hcl PHA 07/20/24 In Process Capsule (Librium Ca 18:00 Sucralfate Susp PHA 07/20/24 In Process (Carafate Susp) 22:00 Lorazepam 2mg/Ml Inj PHA 07/20/24 In Process (Ativan Inj) 15:15 Regular Diet DIET 07/20/24 Transmitted Dinner Thiamine Tab PHA 07/21/24 Verified 10:00 Multiple Vitamin PHA 07/21/24 Verified Tablet (Mvi Tab) 10:00 NS PHA 07/21/24 Verified 09:15 Transfer Orders XFER 07/21/24 Verified 09:15 Date of Service: Jul 21, 2024 Billing Provider: EDYTA DUMONT NP Common Visit Codes: [id number] INP/OBS CARE(HIGH) EDYTA UDMONT NP Jul 21, 2024 09:19
[2024-07-21] MEDS: THIAMINE HCL 100 MG TAB PO SCH (10:10)
[2024-07-21] MEDS: MULTIPLE VITAMIN TAB PO SCH (10:10)
[2024-07-21] MEDS: SODIUM CHLORIDE 0.9% 1,000 ML IV ONE (10:11)
[2024-07-21] MEDS: LORazepam 2MG/ML-1ML VIAL IV PRN (14:37)
[2024-07-21] MEDS: ACETAMINOPHEN 325 MG TAB PO PRN (17:16)
[2024-07-22 01:00] VITALS: BP 147/93; PULSE 68; RESP 18; TEMP 98.5; O2SAT 96
[2024-07-22] MEDS: ONDANSETRON HCL 4 MG/2 ML VIAL IV PRN (03:42)
[2024-07-22 05:00] VITALS: BP 190/100; PULSE 90; RESP 18; TEMP 98.3; O2SAT 100
[2024-07-22 08:00] VITALS: O2SAT 96
--- NOTE | 2024-07-22 08:19 | DVHDS2 ---
Discharge Summary Date of Admission Jul 19, 2024 at 21:52 Date of Discharge: Jul 22, 2024 Admitting Diagnosis Acute alcohol withdrawal Labs/Diagnostic Data: Laboratory Results Test 07/20/24 03:56 07/19/24 23:09 07/19/24 23:07 07/19/24 20:58 White Blood Count 7.8 10^3/uL (4.4-10.8) Red Blood Count 3.64 10^6/uL (4.5-5.90) Hemoglobin 11.5 g/dL (13.5-17.5) Hematocrit 35.1 % (41.0-53.0) Mean Corpuscular Volume 96.5 fL (80.0-100.0) Mean Corpuscular Hemoglobin 31.7 pg (28.0-32.0) Mean Corpuscular Hemoglobin Concent 32.9 g/dL (32.0-36.0) Red Cell Distribution Width 17.3 % (11.8-14.3) Platelet Count 346 10^3/uL (140-450) Mean Platelet Volume 7.3 fL (6.9-10.8) Neutrophils (%) (Auto) 53.0 % (37.0-80.0) Lymphocytes (%) (Auto) 33.3 % (10.0-50.0) Monocytes (%) (Auto) 10.3 % (0.0-12.0) Eosinophils (%) (Auto) 2.8 % (0.0-7.0) Basophils (%) (Auto) 0.6 % (0.0-2.0) Neutrophils # (Auto) 4.2 10 ^3/uL (1.6-8.6) Lymphocytes # (Auto) 2.6 10 ^3/uL (0.4-5.4) Monocytes # (Auto) 0.8 10 ^3/uL (0-1.3) Eosinophils # (Auto) 0.2 10 ^3/uL (0-0.8) Basophils # (Auto) 0 10 ^3/uL (0-0.2) Nucleated Red Blood Cells 0.0 % Sodium Level 142 mmol/L (136-145) Potassium Level 4.1 mmol/L (3.5-5.1) Chloride Level 108 mmol/L (98-107) Carbon Dioxide Level 30 mmol/L (20-31) Anion Gap 4 (5-15) Blood Urea Nitrogen 9 mg/dL (9-23) Creatinine 0.78 mg/dL (0.700-1.30) Glomerular Filtration Rate Calc 106 mL/min (>90) BUN/Creatinine Ratio 11.5 (10.0-20.0) Serum Glucose 106 mg/dL (74-106) Calcium Level 8.2 mg/dL (8.7-10.4) Total Bilirubin 0.4 mg/dL (0.2-1.0) Aspartate Amino Transferase (AST) 14 U/L (13-40) Alanine Aminotransferase (ALT) < 9 U/L (7-40) Alkaline Phosphatase 50 U/L (46-116) Troponin I High Sensitivity 10 ng/L (</=54) Total Protein 4.7 g/dL (5.7-8.2) Albumin 3.4 g/dL (3.2-4.8) D-Dimer, Quantitative < 0.19 mg/L FEU (0.0-0.49) Ammonia < 10 umol/L (11-32) Influenza Type A Antigen Negative (Negative) Influenza Type B Antigen Negative (Negative) SARS-CoV-2 Antigen (Rapid) Negative (NEGATIVE) Urine Color Light-yellow (Yellow) Urine Clarity Clear (Clear) Urine pH 7.5 (5.0-9.0) Urine Specific [place] 1.011 (1.001-1.035) Urine Protein Negative (Negative) Urine Ketones Negative (Negative) Urine Blood Negative /uL (Negative) Urine Nitrite Negative (Negative) Urine Bilirubin Negative (Negative) Urine Urobilinogen Normal mg/dL (Negative) Urine Leukocyte Esterase Negative /uL (Negative) Urine RBC <1 /hpf (0 - 3) Urine Microscopic WBC 1 /HPF (0-3) Urine Squamous Epithelial Cells None seen /hpf (<5) Urine Amorphous Crystals Few /hpf (None Seen) Urine Bacteria None seen /hpf (None Seen) Urine Glucose Normal mg/dL (Normal) Urine Opiates Screen Pos (NEGATIVE) Urine Fentanyl Screen Neg (NEGATIVE) Urine Barbiturates Screen Neg (NEGATIVE) Urine Phencyclidine Screen Neg (NEGATIVE) Urine Amphetamines Screen Neg (NEGATIVE) Urine Benzodiazepines Screen Neg (NEGATIVE) Urine Cocaine Screen Neg (NEGATIVE) Urine Cannabinoids Screen Neg (NEGATIVE) Test 07/19/24 19:04 07/19/24 18:04 Thyroid Stimulating Hormone (TSH) 0.88 uIU/mL (0.55-4.78) Lactic Acid Level 2.5 mmol/L (0.4-2.0) Magnesium Level 1.6 mg/dL (1.6-2.6) B-Type Natriuretic Peptide 11.29 pg/mL (0-100) Lipase 26 U/L (12-53) Plasma/Serum Blood Alcohol 3.7 mg/dL (<10) Other Laboratory Tests 07/20/24 03:56 Brief Hx & Hospital Course: History of Present Illness DALTON MANCINI 54-year-old male with a PMH of anxiety, depression, HTN, PUD presented to the ED with the chief complaints of alcohol withdrawal since today morning. Patient reported he has a chronic drinker, drinks 10-15 drinks per day, his last drink was yesterday afternoon 2:00 a.m.. Since today morning patient has been developed tremors, nausea, vomiting, seeing orange colo which usually not there. This poor historian but not altered. On my assessment patient denies fever, diarrhea, chest pain, abdominal pain, and other acute associated symptoms. Course of hospitalization: Patient was started on scheduled Librium. Patient's auditory and visual hallucinations have resolved. Patient has been going outside to smoke. Blood pressure has been controlled with oral antihypertensives. Patient was continued on PPI and Carafate for his abdominal pain. He was requesting to be discharged home. Patient will be discharged with an order of Protonix 40 mg p.o. daily as well as Carafate 1 g tablet twice a day. He was instructed to follow up with the discharge Clinic in one week. Lifestyle modification education given to the patient regarding the need to stop smoking and drinking alcohol. Patient verbalized understanding. All questions answered. Physical examination General: Alert and Oriented x3. No acute distress. Well-nourished. Eyes: EOMI. Anicteric. HENT: Moist mucous membranes. Lungs: Clear to auscultation bilaterally. No accessory muscle use. Cardiovascular: Regular rate and rhythm. No murmur. No JVD. Abdomen: Soft, non-tender and non-distended. No palpable masses. Extremities: No edema. Non-tender. Skin: No rashes or lesions. Warm. Neurologic: No focal neurological deficits. CN II-XII grossly intact, but not individually tested. Psychiatric: Cooperative. Appropriate mood and affect. Total time spent with patient discussing and formulating plan of care: 35 minutes. This medical document was created using an electronic medical record system with [employer] system. Although this document has been carefully reviewed, there may still be some phonetic and typographical errors. These areas are purely typographical due to imperfections of the software programs, and do not reflect any compromise in the patient's medical care. Condition at Discharge: Poor Final Diagnosis/Problems List Acute alcohol withdrawal Secondary diagnosis -acute alcohol withdrawal with delirium tremens -abdominal pain on probably secondary to alcoholism and probable underlying peptic ulcer disease -history of alcoholism -nicotine dependence Discharge Disposition: Home Discharge Instruct/Medications Diet: Regular Activity: No Restrictions, As Tolerated Follow Up/Referral: Follow up with discharge Clinic in one week Medications: Carafate 1 g tablet b.i.d. times 30 days Protonix 40 mg p.o. daily times 30 days 36 Discharge Statement: "Patient was advised to return to the ER or call 911 if any headaches, dizziness, shortness of breath, chest pain, abdominal pain, bleeding, fevers, or worsening of medical condition. Patient was counseled about treatment plan, medications, possible side effects, patientverbalized understanding. All questions were answered to the best of my ability. This discharge took greater then 30 minutes in planning, reviewing documentation, counseling the patient, and discussing with other team members." ASSESSMENT ASSESSMENT Assessment Acute alcohol withdrawal Date of Service: Jul 22, 2024 Billing Provider: EDYTA DUMONT NP Common Visit Codes: 85248-AVW/OBS DISCH DAY >30min EDYTA DUMONT NP Jul 22, 2024 08:19
[2024-07-22 08:57] VITALS: TEMP 36.8
[2024-07-22 09:00] VITALS: BP 131/93; PULSE 98; RESP 20; TEMP 98; O2SAT 99
[2024-07-22] MEDS ORDERED: PANT40TA2 PO ×2 (09:13)
[2024-07-22] MEDS ORDERED: SUCR1SUS26 PO ×2 (09:13)
[2024-07-22] MEDS ORDERED: SUCR1TAB31 OR ×2 (09:13)
[2024-07-22] MEDS ORDERED: DOCU-94 PO ×2 (21:35)
== END 2024-07-22 10:32 | disposition home or self-care (01) | DRG 241 ==
LOC: EDBD 17:40 → ER 17:40 → OVERFLOW 21:52 → TELE-CENTR 07-20 15:17 → CENTRAL 07-22 01:40
PROVIDERS: ADMIT Nurse Practitioner Acute Care; ATTEND Nurse Practitioner Acute Care
DX: K27.3 Acute peptic ulcer, site unspecified, without hemorrhage or perforation (principal); F10.231 Alcohol dependence with withdrawal delirium; R25.1 Tremor, unspecified; F17.210 Nicotine dependence, cigarettes, uncomplicated; F32.9 Major depressive disorder, single episode, unspecified; F41.9 Anxiety disorder, unspecified; I10 Essential (primary) hypertension; I16.0 Hypertensive urgency; Z20.822 Contact with and (suspected) exposure to COVID-19; Z87.11 Personal history of peptic ulcer disease; Z79.82 Long term (current) use of aspirin; Z79.899 Other long term (current) drug therapy
CPT/HCPCS: 36415; 80053; 80307; 80320; 81001; 82140; 83605; 83690; 83735; 83880; 84443; 84484; 85025; 85379; 87426; 87804; 96365; 96375; G0378; J2405; J2470

== ENCOUNTER 2024-07-22 20:27 | Emergency (ER) | payer MEDICAID ==
[~2024-07-22] VITALS: Ht 175.3 cm; Wt 63.6 kg
[~2024-07-22 20:27] MED LIST changes: +PANT40TA2 PO; +SUCR1SUS26 PO; +SUCR1TAB31 OR
[2024-07-22 20:35] VITALS: BP 162/102; PULSE 89; RESP 18; O2SAT 98
--- NOTE | 2024-07-22 20:48 | ED.PDOC ---
History of Present Illness HPI Comments 54-year-old male who comes in with chief complaint of constipation for eight days. The patient was also complaining of some abdominal pain. The patient states that he was seen at our facility earlier but left AMA because he had to take care some other paperwork. The patient has now returned stating that he can not have a bowel movements and states that the pain seems to be worsening. He was also seen here a couple of days ago where he had a CT scan of the abdomen and pelvis which was negative. The patient was given fentanyl 100 IV as well as Zofran 4 mg IV for the symptoms. He is also complaining of some nausea and vomiting. Chief Complaint: Abdominal Pain Time Seen by MD: 20:42 Primary Care Provider: VLADISLAV Reviewed Notes: Nurses Notes, Medications, Allergies (No allergies to medications) Allergies: Coded Allergies: NO KNOWN ALLERGIES (Unverified , 04/16/20) Home Meds Active Scripts Docusate Sodium (Colace) 100 Mg Cap, 1 CAP PO BID, #30 CAP Prov:SHERI SOLIS MD 07/22/24 Sucralfate (CARAFATE) 1 Gm Tab, 1 GM OR BID for 30 Days, #60 TAB Prov:EDYTA DUMONT NP 07/22/24 Sucralfate (CARAFATE SUSP) 1 Gm/10 Ml Ss, 10 ML PO BID, #600 ML 1 Refill Prov:EDYTA DUMONT NP 07/22/24 Pantoprazole Sodium Sesquihydr (Protonix) 40 Mg Tab, 40 MG PO DAILY for 30 Days, #30 TAB Prov:EDYTA DUMONT NP 07/22/24 Metronidazole (Flagyl) 500 Mg Tab, 1 TAB PO TID, #21 TAB Prov:BRE BROWN MD 07/05/24 Prochlorperazine Maleate (Compazine) 10 Mg Tb, 1 TAB PO TID for 10 Days, #30 TAB 3 Refills Prov:LYNETTE GRIFFIN MD 06/19/24 Omeprazole (Gnp Omeprazole) 20 Mg Tab, 1 TAB PO BID for 10 Days, #20 TAB 1 Refill Prov:LYNETTE GRIFFIN MD 06/19/24 Aluminum Hydroxide-Mag Carb (Gaviscon Extra Strength) 1 Chw Chw, 1 CHW PO QID for 10 Days, #40 TAB.CHEW Prov:LYNETTE GRIFFIN MD 06/19/24 Cyanocobalamin (B12) 1,000 Mcg Tab, 1000 MCG PO DAILY for 7 Days, #7 TAB 0 Refills Prov:JEANETTE MICHELE MD 06/06/24 Folic Acid (Folate) 400 Mcg Tab, 400 MCG PO DAILY for 30 Days, #30 TAB 0 Refills Prov:JEANETTE MICHELE MD 06/06/24 Thiamine Mononitrate (B1) 100 Mg Tab, 100 MG PO DAILY for 30 Days, #30 TAB 1 Refill Prov:JEANETTE MICHELE MD 06/06/24 Reported Medications Diphenhydramine Hcl (Diphenhydramine Hcl) 25 Mg Cap, 25 MG PO DAILYP PRN for ALCOHOL WITHDRAWAL SYMPTOMS, MG 03/13/24 Aspirin (Aspir-Low) 81 Mg Tab, 81 MG PO DAILY for 30 Days, MG 03/13/24 Alendronate Sodium (Alendronate Sodium) 70 Mg Tab, 1 TAB PO QWEEKLY 01/21/24 Information Source: Patient, Emergency Med Personnel Mode of Arrival: EMS Severity: Moderate Timing: Days Duration: Since onset Prehospital treatment: Scrum Master, IVF, Other (Zofran IV push as well as fentanyl IV push) Location: Generalized abdominal pain Associated signs and symptoms Associated nausea and vomiting Past Medical History PAST MEDICAL HISTORY: Anemia, Anxiety, Depression, HTN, PUD Surgical History: Denies all surgeries Family History Family History: Reviewed,noncontributory to illness Social History Smoker: Non-Smoker Alcohol: Heavy Drugs: Denies Drug Use Lives In: Home Constitutional: denies: chills, diaphoresis, fatigue, fever, malaise, sweats, weakness, others EENTM: denies: blurred vision, double vision, ear bleeding, ear discharge, ear drainage, ear pain, ear ringing, eye pain, eye redness, hearing loss, mouth pain, mouth swelling, nasal discharge, nose bleeding, nose congestion, nose pain, photophobia, tearing, throat pain, throat swelling, voice changes, others Respiratory: denies: cough, hemoptysis, orthopnea, SOB at rest, shortness of breath, SOB with excertion, stridor, wheezing, others Cardiovascular: denies: chest pain, dizzy spells, diaphoresis, Dyspnea on exertion, edema, irregular heart beat, left arm pain, lightheadedness, palpitations, PND, syncope, others Gastrointestinal: reports: abdominal pain, constipated, nausea, vomiting; denies: abdomen distended, blood streaked bowels, diarrhea, dysphagia, difficulty swallowing, hematemesis, melena, poor appetite, poor fluid intake, rectal bleeding, rectal pain, others Genitourinary: denies: burning, dysuria, flank pain, frequency, hematuria, incontinence, penile discharge, penile sore, pain, testicle pain, testicle swelling, urgency, others Neurological: denies: dizziness, fainting, headache, left sided numbness, left sided weakness, numbness, paresthesia, pre-existing deficit, right sided numbness, right sided weakness, seizure, speech problems, tingling, tremors, weakness, others Musculoskeletal: denies: back pain, gout, joint pain, joint swelling, muscle pa in, muscle stiffness, neck pain, others Integumetry: denies: bruises, change in color, change in hair/nails, dryness, laceration, lesions, lumps, rash, wounds, others Allergic/Immunocompromised: denies: Difficulty Healing, Frequent Infections, Hives, Itching, others Hematologic/Lymphatic: denies: anemia, blood clots, easy bleeding, easy bruising, swollen glands, others Endocrine: denies: excessive hunger, excessive sweating, excessive thirst, excessive urination, flushing, intolerance to cold, intolerance to heat, unexplained weight gain, unexplained weight loss, others Psychiatric: denies: anxiety, bipolar disorder, depression, hopeless, panic disorder, schizophrenia, sleepless, suicidal, others Physical Exam General Appearance: Mild Distress HEENT: Normal ENT Inspection, Pharynx Normal, TMs Normal Neck: Full Range of Motion, Non-Tender, Normal, Normal Inspection Respiratory: Chest Non-Tender, Lungs Clear, No Accessory Muscle Use, No Respiratory Distress, Normal Breath Sounds Cardiovascular: No Edema, No JVD, No Murmur, No Gallop, Normal Peripheral Pulses, Regular Rate/Rhythm Breast Exam: Deferred Gastrointestinal: Diffuse, No Organomegaly, No Pulsatile Mass, Normal Bowel Sounds, Soft, Tenderness Genitalia: Deferred Pelvic: Deferred Rectal: Deferred Extremities: No calf tenderness, Normal capillary refill, Normal inspection, Normal range of motion, Non-tender, No pedal edema Musculoskeletal : Apperance: Normal Neurologic: Alert, brush operator II-XII nml as Tested, No Motor Deficits, Normal Affect, Normal Mood, No Sensory Deficits Cerebellar Function: Normal Reflexes: Normal Skin: Dry, Normal Color, Warm Lymphatic: No Adenopathy Was a procedure done? Was a procedure done?: No Differential Dx Considerations may include: Bowel obstruction, appendicitis, gastroenteritis, generalized weakness X-Ray, Labs, Meds, VS Vital Signs Date Time Temp Pulse Resp B/P (MAP) Pulse Ox O2 Delivery O2 Flow Rate FiO2 07/22/24 20:35 99.3 89 18 162/102 (122) 98 Lab Test 07/22/24 20:58 Range/Units White Blood Count 8.0 4.4-10.8 10^3/uL Red Blood Count 4.07 L 4.5-5.90 10^6/uL Hemoglobin 12.8 L 13.5-17.5 g/dL Hematocrit 38.9 #L 41.0-53.0 % Mean Corpuscular Volume 95.7 80.0-100.0 fL Mean Corpuscular Hemoglobin 31.4 28.0-32.0 pg Mean Corpuscular Hemoglobin Concent 32.8 32.0-36.0 g/dL Red Cell Distribution Width 16.8 H 11.8-14.3 % Platelet Count 381 140-450 10^3/uL Mean Platelet Volume 7.5 6.9-10.8 fL Neutrophils (%) (Auto) 67.1 37.0-80.0 % Lymphocytes (%) (Auto) 20.7 10.0-50.0 % Monocytes (%) (Auto) 9.3 0.0-12.0 % Eosinophils (%) (Auto) 2.5 0.0-7.0 % Basophils (%) (Auto) 0.4 0.0-2.0 % Neutrophils # (Auto) 5.4 1.6-8.6 10 ^3/uL Lymphocytes # (Auto) 1.7 0.4-5.4 10 ^3/uL Monocytes # (Auto) 0.7 0-1.3 10 ^3/uL Eosinophils # (Auto) 0.2 0-0.8 10 ^3/uL Basophils # (Auto) 0 0-0.2 10 ^3/uL Nucleated Red Blood Cells 0.0 % Sodium Level Pending Potassium Level Pending Chloride Level Pending Carbon Dioxide Level Pending Anion Gap Pending Blood Urea Nitrogen Pending Creatinine Pending Glomerular Filtration Rate Calc Pending BUN/Creatinine Ratio Pending Serum Glucose Pending Calcium Level Pending Total Bilirubin Pending Aspartate Amino Transferase (AST) Pending Alanine Aminotransferase (ALT) Pending Alkaline Phosphatase Pending Total Protein Pending Albumin Pending IV Hep-Lock was established The patient was given normal saline as a bolus. The patient was given a prescription of Colace The patient will return to the emergency department's the condition worsens. The patient understands and agrees with the management. Images Reviewed?: Images reviewed and evaluated by me Time of 1ST Reevaluation: 20:48 Reevaluation 1ST: Improved Patient Education/Counseling: Diagnosis, Treatment, Prognosis, Need For Follow Up Family Education/Counseling: No Family Present Departure 1 Departure Time of Disposition: 20:48 Impression: Primary Impression: Abdominal pain Qualified Codes: R10.9 - Unspecified abdominal pain Additional Impression: Constipation Qualified Codes: K59.00 - Constipation, unspecified Disposition: 01 HOME / SELF CARE / HOMELESS Condition: Fair e-Prescriptions Docusate Sodium (Colace) 100 Mg Cap 1 CAP PO BID, #30 CAP Prov: SHERI SOLIS MD 07/22/24 Discharged With: Self Critical Care Note Critical Care Time?: No Stability Stability form required: No Heart Score Heart Score: Heart Score Response (Comments) Value History N/A 0 EKG N/A 0 Age N/A 0 Risk Factors N/A 0 Troponin N/A 0 Total 0 SHERI SOLIS MD Jul 22, 2024 20:48
[2024-07-22 21:27] LABS: Basophils # (auto) 0 10 ^3/uL (0-0.2); Basophils % (auto) 0.4 % (0.0-2.0); Eosinophils # (auto) 0.2 10 ^3/uL (0-0.8); Eosinophils % (auto) 2.5 % (0.0-7.0); Hematocrit 38.9 % (41.0-53.0); Hemoglobin 12.8 g/dL (13.5-17.5); Lymphocytes # (auto) 1.7 10 ^3/uL (0.4-5.4); Lymphocytes % (auto) 20.7 % (10.0-50.0); Mean Corpuscular Hemoglobin 31.4 pg (28.0-32.0); Mean Corpuscular Hgb Conc. 32.8 g/dL (32.0-36.0); Mean Corpuscular Volume 95.7 fL (80.0-100.0); Monocytes # (auto) 0.7 10 ^3/uL (0-1.3); Monocytes % (auto) 9.3 % (0.0-12.0); Neutrophils # (auto) 5.4 10 ^3/uL (1.6-8.6); Neutrophils % (auto) 67.1 % (37.0-80.0); Platelet Count (auto) 381 10^3/uL (140-450); Red Blood Cells 4.07 10^6/uL (4.5-5.90); Red Cell Distribution Width 16.8 % (11.8-14.3)
[2024-07-22] MEDS ORDERED: DOCU-94 PO (21:35)
[2024-07-22 21:43] LABS: Albumin 4.4 g/dL (3.2-4.8); Alkaline Phosphatase 58 U/L (46-116); Anion Gap 9 (5-15); Aspartate Aminotransferase 15 U/L (13-40); Calcium 9.6 mg/dL (8.7-10.4); Carbon Dioxide 29 mmol/L (20-31); Chloride 102 mmol/L (98-107); Glucose 104 mg/dL (74-106); Potassium 4.3 mmol/L (3.5-5.1); Sodium 140 mmol/L (136-145); Total Protein 6.5 g/dL (5.7-8.2)
[2024-07-22 21:46] LABS: Alanine Aminotransferase < 9 U/L (7-40); BUN/Creatinine Ratio 5.7 (10.0-20.0); Bilirubin, Total 0.2 mg/dL (0.2-1.0); Blood Urea Nitrogen < 5 mg/dL (9-23)
[2024-07-22] MEDS: ONDANSETRON HCL 4 MG/2 ML VIAL IV ONE (23:10)
[2024-07-22] MEDS: MORPHINE SULFATE 4 MG/ML SYR/VIAL IV ONE (23:10)
[2024-07-24] MEDS ORDERED: DOCU-94 PO (16:30)
[2024-07-24] MEDS ORDERED: POLY335015 PO (16:30)
== END 2024-07-22 23:25 | disposition home or self-care (01) ==
LOC: ER 20:27 → EDBD 20:27 → ER 23:25
DX: K59.00 Constipation, unspecified (principal); R10.9 Unspecified abdominal pain; I10 Essential (primary) hypertension; F41.9 Anxiety disorder, unspecified; F32.A Depression, unspecified; D64.9 Anemia, unspecified; Z79.82 Long term (current) use of aspirin; Z79.899 Other long term (current) drug therapy
CPT/HCPCS: 36415; 80053; 85025

== ENCOUNTER 2024-07-23 17:06 | Inpatient (IN) | payer MEDICAID ==
[~2024-07-23] VITALS: Ht 175.3 cm; Wt 68.0 kg
[~2024-07-23 17:06] MED LIST changes: +DOCU-94 PO
--- NOTE | 2024-07-23 18:05 | ED.PDOC ---
GI ASSESSMENT HPI Comments 54-year-old male who comes in with chief complaint of constipation for eight days. The patient was also complaining of some abdominal pain. The patient states that he was seen at our facility earlier but left AMA because he had to take care some other paperwork. The patient has now returned stating that he can not have a bowel movements and states that the pain seems to be worsening. He was also seen here a couple of days ago where he had a CT scan of the abdomen and pelvis which was negative. The patient was given fentanyl 100 IV as well as Zofran 4 mg IV for the symptoms. He is also complaining of some nausea and vomiting. Pt came back to the ED, stating he is continuing to have abdominal pa in. Pt CT scan showed no obstruction and he was discharged 1 days prior. Chief Complaint: Constipation Time Seen by MD: 18:01 Primary Care Provider: VLADISLAV Reviewed Notes: Fiscal Officer Notes, Medications, Allergies Allergies: Coded Allergies: NO KNOWN ALLERGIES (Unverified , 04/16/20) Home Meds Active Scripts Docusate Sodium (Colace) 100 Mg Cap, 1 CAP PO BID, #30 CAP Prov:SHERI SOLIS MD 07/22/24 Sucralfate (CARAFATE) 1 Gm Tab, 1 GM OR BID for 30 Days, #60 TAB Prov:EDYTA DUMONT NP 07/22/24 Sucralfate (CARAFATE SUSP) 1 Gm/10 Ml Ss, 10 ML PO BID, #600 ML 1 Refill Prov:EDYTA DUMONT NP 07/22/24 Pantoprazole Sodium Sesquihydr (Protonix) 40 Mg Tab, 40 MG PO DAILY for 30 Days, #30 TAB Prov:EDYTA DUMONT NP 07/22/24 Metronidazole (Flagyl) 500 Mg Tab, 1 TAB PO TID, #21 TAB Prov:BRE BROWN MD 07/05/24 Prochlorperazine Maleate (Compazine) 10 Mg Tb, 1 TAB PO TID for 10 Days, #30 TAB 3 Refills Prov:LYNETTE GRIFFIN MD 06/19/24 Omeprazole (Gnp Omeprazole) 20 Mg Tab, 1 TAB PO BID for 10 Days, #20 TAB 1 Refill Prov:LYNETTE GRIFFIN MD 06/19/24 Aluminum Hydroxide-Mag Carb (Gaviscon Extra Strength) 1 Chw Chw, 1 CHW PO QID for 10 Days, #40 TAB.CHEW Prov:LYNETTE GRIFFIN MD 06/19/24 Cyanocobalamin (B12) 1,000 Mcg Tab, 1000 MCG PO DAILY for 7 Days, #7 TAB 0 Refills Prov:JEANETTE MICHELE MD 06/06/24 Folic Acid (Folate) 400 Mcg Tab, 400 MCG PO DAILY for 30 Days, #30 TAB 0 Refills Prov:JEANETTE MICHELE MD 06/06/24 Thiamine Mononitrate (B1) 100 Mg Tab, 100 MG PO DAILY for 30 Days, #30 TAB 1 Refill Prov:JEANETTE MICHELE MD 06/06/24 Reported Medications Diphenhydramine Hcl (Diphenhydramine Hcl) 25 Mg Cap, 25 MG PO DAILYP PRN for ALCOHOL WITHDRAWAL SYMPTOMS, MG 03/13/24 Aspirin (Aspir-Low) 81 Mg Tab, 81 MG PO DAILY for 30 Days, MG 03/13/24 Alendronate Sodium (Alendronate Sodium) 70 Mg Tab, 1 TAB PO QWEEKLY 01/21/24 Information Source: Patient Mode of Arrival: EMS Brought in by: EMS Timing: Days Duration: Since onset Prehospital treatment: None Quality: Aching Vomitus: None Stool: Normal Severity: Moderate Recent: None Recent Hx of: None Pain Location: Diffuse Modifying Factors: Nothing Associated sign and symptoms: Abdominal Pain Past Medical History PAST MEDICAL HISTORY: Anemia, Anxiety, Depression, HTN, PUD Surgical History: Denies all surgeries Family History Family History: Reviewed,noncontributory to illness Social History Smoker: Non-Smoker Alcohol: Heavy Drugs: Denies Drug Use Lives In: Home Constitutional: denies: chills, diaphoresis, fatigue, fever, malaise, sweats, weakness, others EENTM: denies: blurred vision, double vision, ear bleeding, ear discharge, ear drainage, ear pain, ear ringing, eye pain, eye redness, hearing loss, mouth pain, mouth swelling, nasal discharge, nose bleeding, nose congestion, nose pain, photophobia, tearing, throat pain, throat swelling, voice changes, others Respiratory: denies: cough, hemoptysis, orthopnea, SOB at rest, shortness of breath, SOB with excertion, stridor, wheezing, others Cardiovascular: denies: chest pain, dizzy spells, diaphoresis, Dyspnea on exertion, edema, irregular heart beat, left arm pain, lightheadedness, palpitations, PND, syncope, others Gastrointestinal: reports: abdominal pain; denies: abdomen distended, blood streaked bowels, constipated, diarrhea, dysphagia, difficulty swallowing, hematemesis, melena, nausea, poor appetite, poor fluid intake, rectal bleeding, rectal pain, vomiting, others Genitourinary: denies: burning, dysuria, flank pain, frequency, hematuria, incontinence, penile discharge, penile sore, pain, testicle pain, testicle swelling, urgency, others Neurological: denies: dizziness, fainting, headache, left sided numbness, left sided weakness, numbness, paresthesia, pre-existing deficit, right sided numbness, right sided weakness, seizure, speech problems, tingling, tremors, weakness, others Musculoskeletal: denies: back pain, gout, joint pain, joint swelling, muscle pain, muscle stiffness, neck pain, others Integumetry: denies: bruises, change in color, change in hair/nails, dryness, laceration, lesions, lumps, rash, wounds, others Allergic/Immunocompromised: denies: Difficulty Healing, Frequent Infections, Hives, Itching, others Hematologic/Lymphatic: denies: anemia, blood clots, easy bleeding, easy bruising, swollen glands, others Endocrine: denies: excessive hunger, excessive sweating, excessive thirst, excessive urination, flushing, intolerance to cold, intolerance to heat, unexplained weight gain, unexplained weight loss, others Psychiatric: denies: anxiety, bipolar disorder, depression, hopeless, panic disorder, schizophrenia, sleepless, suicidal, others All Other Systems: Reviewed and Negative Physical Exam General Appearance: Moderate Distress HEENT: Normal ENT Inspection, Pharynx Normal, TMs Normal Neck: Full Range of Motion, Non-Tender, Normal, Normal Inspection Respiratory: Chest Non-Tender, Lungs Clear, No Accessory Muscle Use, No Respiratory Distress, Normal Breath Sounds Cardiovascular: No Edema, No JVD, No Murmur, No Gallop, Normal Peripheral Pulses, Regular Rate/Rhythm Breast Exam: Deferred Gastrointestinal: Diffuse, No Organomegaly, No Pulsatile Mass, Normal Bowel Sounds, Soft, Tenderness Genitalia: Deferred Pelvic: Deferred Rectal: Deferred Extremities: No calf tenderness, Normal capillary refill, Normal inspection, Normal range of motion, Non-tender, No pedal edema Musculoskeletal : Apperance: Normal Neurologic: Alert, orthotics prosthetics assistant II-XII nml as Tested, No Motor Deficits, Normal Affect, Normal Mood, No Sensory Deficits Cerebellar Function: Normal Reflexes: Normal Skin: Dry, Normal Color, Warm Lymphatic: No Adenopathy Was a procedure done? Was a procedure done?: No GI differential Dx Differential Diagnosis: Constipation, Gastritis/PUD, Gastroenteritis, Hernia, Pancreatitis, Dehydration, Food Poisoning, Bacterial, Viral X-Ray, Labs, Meds, VS Vital Signs Date Time Temp Pulse Resp B/P (MAP) Pulse Ox O2 Delivery O2 Flow Rate FiO2 07/23/24 17:12 98.6 102 16 141/96 (111) 98 Lab Test 07/23/24 18:37 Range/Units White Blood Count 12.3 #H 4.4-10.8 10^3/uL Red Blood Count 4.34 L 4.5-5.90 10^6/uL Hemoglobin 13.7 13.5-17.5 g/dL Hematocrit 41.4 41.0-53.0 % Mean Corpuscular Volume 95.6 80.0-100.0 fL Mean Corpuscular Hemoglobin 31.7 28.0-32.0 pg Mean Corpuscular Hemoglobin Concent 33.1 32.0-36.0 g/dL Red Cell Distribution Width 17.1 H 11.8-14.3 % Platelet Count 447 140-450 10^3/uL Mean Platelet Volume 7.7 6.9-10.8 fL Neutrophils (%) (Auto) 78.3 37.0-80.0 % Lymphocytes (%) (Auto) 12.3 10.0-50.0 % Monocytes (%) (Auto) 7.9 0.0-12.0 % Eosinophils (%) (Auto) 1.1 0.0-7.0 % Basophils (%) (Auto) 0.4 0.0-2.0 % Neutrophils # (Auto) 9.6 H 1.6-8.6 10 ^3/uL Lymphocytes # (Auto) 1.5 0.4-5.4 10 ^3/uL Monocytes # (Auto) 1.0 0-1.3 10 ^3/uL Eosinophils # (Auto) 0.1 0-0.8 10 ^3/uL Basophils # (Auto) 0 0-0.2 10 ^3/uL Nucleated Red Blood Cells 0.0 % Sodium Level Pending Potassium Level Pending Chloride Level Pending Carbon Dioxide Level Pending Anion Gap Pending Blood Urea Nitrogen Pending Creatinine Pending Glomerular Filtration Rate Calc Pending BUN/Creatinine Ratio Pending Serum Glucose Pending Calcium Level Pending Total Bilirubin Pending Aspartate Amino Transferase (AST) Pending Alanine Aminotransferase (ALT) Pending Alkaline Phosphatase Pending Total Protein Pending Albumin Pending Lipase Pending The patient's CBC shows an elevated white blood cell count of 12.3 The patient was being admitted at this time The patient was already had imaging studies done in the CT scan did not show any obstruction or abscess. The patient continues to have pain so the patient was being admitted. Images Reviewed?: Images reviewed and evaluated by me Time of 1ST Reevaluation: 18:30 Reevaluation 1ST: Unchanged Patient Education/Counseling: Diagnosis, Treatment, Prognosis Family Education/Counseling: No Family Present Additional Information - I reviewed the following notes from patient's past medical encounters: - The following tests were ordered, and results were reviewed by me: (Labs, X- Ray, EKG): cbc, cmp, lipase, - Additional information was gathered from interviewing the following independent Historian: (Family, Other Providers, EMT): ems - I reviewed and agreed with the following test results read by other provider: (X-ray, CT, US):none - I discussed treatments and results with medical personnel and: (consultants, family): none Departure 1 Departure Time of Disposition: 19:25 Impression: Primary Impression: Intractable abdominal pain Additional Impression: Alcohol abuse Disposition: ADMITTED INPATIENT Admit to: Med Surg Condition: Fair Critical Care Note Critical Care Time?: No Stability Stability form required: No Heart Score Heart Score: Heart Score Response (Comments) Value History N/A 0 EKG N/A 0 Age N/A 0 Risk Factors N/A 0 Troponin N/A 0 Total 0 I personally scribed for SHERI SOLIS MD ([email or web address]) on 07/23/24 at 18:05. Electronically submitted by Fernanda Magaña ([email or web address]). SHERI SOLIS MD Jul 23, 2024 18:05
[2024-07-23 19:15] LABS: Basophils # (auto) 0 10 ^3/uL (0-0.2); Basophils % (auto) 0.4 % (0.0-2.0); Eosinophils # (auto) 0.1 10 ^3/uL (0-0.8); Eosinophils % (auto) 1.1 % (0.0-7.0); Hematocrit 41.4 % (41.0-53.0); Hemoglobin 13.7 g/dL (13.5-17.5); Lymphocytes # (auto) 1.5 10 ^3/uL (0.4-5.4); Lymphocytes % (auto) 12.3 % (10.0-50.0); Mean Corpuscular Hemoglobin 31.7 pg (28.0-32.0); Mean Corpuscular Hgb Conc. 33.1 g/dL (32.0-36.0); Mean Corpuscular Volume 95.6 fL (80.0-100.0); Monocytes % (auto) 7.9 % (0.0-12.0); Neutrophils # (auto) 9.6 10 ^3/uL (1.6-8.6); Neutrophils % (auto) 78.3 % (37.0-80.0); Platelet Count (auto) 447 10^3/uL (140-450); Red Blood Cells 4.34 10^6/uL (4.5-5.90); Red Cell Distribution Width 17.1 % (11.8-14.3); White Blood Cell 12.3 10^3/uL (4.4-10.8)
[2024-07-23 19:30] LABS: Alanine Aminotransferase 10 U/L (7-40); Alkaline Phosphatase 71 U/L (46-116); Anion Gap 8 (5-15); Aspartate Aminotransferase 17 U/L (13-40); BUN/Creatinine Ratio 10.1 (10.0-20.0); Carbon Dioxide 29 mmol/L (20-31); Chloride 101 mmol/L (98-107); Lipase 34 U/L (12-53); Potassium 3.8 mmol/L (3.5-5.1); Sodium 138 mmol/L (136-145)
[2024-07-23 19:31] LABS: Bilirubin, Total 0.3 mg/dL (0.2-1.0); Blood Urea Nitrogen 8 mg/dL (9-23); Calcium 10.5 mg/dL (8.7-10.4); Glucose 113 mg/dL (74-106); Total Protein 7.3 g/dL (5.7-8.2)
[2024-07-23] MEDS: ONDANSETRON HCL 4 MG/2 ML VIAL IV ONE (20:49)
[2024-07-23] MEDS: PANTOPRAZOLE 40 MG/10 ML VIAL INJ IV ONE (20:49)
[2024-07-23] MEDS: MORPHINE SULFATE 4 MG/ML SYR/VIAL IV ONE (20:49)
[2024-07-23] MEDS: SODIUM CHLORIDE 0.9% 1,000 ML IVB ONE (20:53)
[2024-07-23] MEDS ORDERED: NITROGLYCERIN 0.4 MG SL TAB SL PRN (22:30)
[2024-07-23] MEDS ORDERED: ONDANSETRON HCL 4 MG/2 ML VIAL IV PRN (22:30)
[2024-07-23] MEDS ORDERED: MORPHINE SULFATE INJ 2 MG/ml SYRG IV PRN (22:30)
--- NOTE | 2024-07-24 00:03 | DVHHPRES ---
History of Present Illness Resident Creating Document: KAMARI NUNEZ RESIDENT History of Present Illness DALTON MANCINI is a 54-year-old male with a PMH of anxiety, depression, HTN, PUD, alcohol dependence presented to the ED with the chief complaints abdominal pain since morning on the day of admission. Patient reported he has been drinking every day, last drink yesterday morning, patient started having abdominal pain radiating to back associated with nausea, vomiting, constipation and attributed patient is not eating and drinking well and feels like disoriented which prompted him to visit ED. Patient recently admitted this facility due to alcohol withdrawal symptoms. Patient denies chest pain, shor tness of breath, diarrhea, flu-like symptoms and other acute associated symptoms PMH: Anxiety, HTN, depression, PUD, PSH: Denies Family history: Not significant Social history: Lives with a brother. Drinks 10-15 drinks per day, smokes less than 1 pack per day but denies other drug abuse Allergies: No known allergies Review of Systems Constitutional: Yes: Malaise Eyes: No: Pain, Vision change, Conjunctivae inflammation, Eyelid inflammation, Other, Redness ENT: No: Ear pain, Ear discharge, Nose pain, Nose discharge, Nose congestion, Mouth pain, Mouth swelling, Throat pain, Throat swelling, Other Respiratory: No: Cough, Dry, Shortness of breath, SOB with excertion, Wheezing, Hemoptysis, Pleuritic Pain, Sputum, Wheezing, Other Cardiovascular: No: Chest Pain, Palpitations, Orthopnea, Paroxysmal Noc. Dyspnea, Edema, Lt Headedness, Other Gastrointestinal: Nausea, Vomiting, Abdominal Pain, Constipation Skin: No: Rash, Lesions, Jaundice, Bruising, Other Neurological: No: Weakness, Numbness, Incoordination, Change in speech, Confusion, Seizures, Other Allergies: Coded Allergies: NO KNOWN ALLERGIES (Unverified , 04/16/20) Medications Current Medications Medications Dose Ordered Sig/Rick Route Start Time Stop Time Status Last Admin Dose Admin Sodium Chloride 1,000 ml @ 60 mls/hr [id number] IV 07/23/24 22:30 Ondansetron HCl 4 mg Q4HP PRN IV 07/23/24 22:30 Enoxaparin Sodium 40 mg DAILY SC 07/24/24 10:00 Acetaminophen 650 mg Q6HP PRN PO 07/23/24 22:30 Nitroglycerin 0.4 mg Q5MINP PRN SL 07/23/24 22:30 Morphine Sulfate 2 mg Q30M PRN IV 07/23/24 22:30 Lactulose 30 ml DAILY PO 07/24/24 10:00 Folic Acid 1 mg/ Multivitamins 10 ml/Magnesium Sulfate 8 meq/ Thiamine HCl 100 mg/Dextrose 1,013.2 ml @ 125.001 mls/hr DAILY@1800 INJ 07/24/24 18:00 Lorazepam 1 mg Q6HP PRN IV 07/23/24 23:15 Pantoprazole Sodium 40 mg DAILY IV 07/24/24 10:00 Exam Vital Signs Vital Signs Date Time Temp Pulse Resp B/P (MAP) Pulse Ox O2 Delivery O2 Flow Rate FiO2 07/23/24 20:49 112 15 112/82 07/23/24 20:03 97 07/23/24 20:02 98.5 98.5 Exam Pt is lying on bed General Appearance: Alert, Oriented X3, Cooperative, moderate distress HEENT: Atraumatic, Mucous membranes moist/pink Respiratory: Clear to auscultation, Normal air movement, No added sounds Cardiovascular: Regular rate, Normal S1, Normal S2, No murmurs Abdominal: Lower abdominal tenderness, active bowel sounds, Soft, no distention, Extremities: No edema, Normal pulses, No tenderness/swelling Skin: No Significant rash, except past surgical scars Neuro: Normal speech, sensorimotor deficits none Psych/Mental Status: Mental status NL, Mood NL Nurse was there as sharperone during examination Labs/Xrays Labs Test 07/23/24 23:21 07/23/24 22:39 07/23/24 18:37 Range/Units Ammonia < 10 L 11-32 umol/L White Blood Count 12.3 #H 4.4-10.8 10^3/uL Red Blood Count 4.34 L 4.5-5.90 10^6/uL Hemoglobin 13.7 13.5-17.5 g/dL Hematocrit 41.4 41.0-53.0 % Mean Corpuscular Volume 95.6 80.0-100.0 fL Mean Corpuscular Hemoglobin 31.7 28.0-32.0 pg Mean Corpuscular Hemoglobin Concent 33.1 32.0-36.0 g/dL Red Cell Distribution Width 17.1 H 11.8-14.3 % Platelet Count 447 140-450 10^3/uL Mean Platelet Volume 7.7 6.9-10.8 fL Neutrophils (%) (Auto) 78.3 37.0-80.0 % Lymphocytes (%) (Auto) 12.3 10.0-50.0 % Monocytes (%) (Auto) 7.9 0.0-12.0 % Eosinophils (%) (Auto) 1.1 0.0-7.0 % Basophils (%) (Auto) 0.4 0.0-2.0 % Neutrophils # (Auto) 9.6 H 1.6-8.6 10 ^3/uL Lymphocytes # (Auto) 1.5 0.4-5.4 10 ^3/uL Monocytes # (Auto) 1.0 0-1.3 10 ^3/uL Eosinophils # (Auto) 0.1 0-0.8 10 ^3/uL Basophils # (Auto) 0 0-0.2 10 ^3/uL Nucleated Red Blood Cells 0.0 % Sodium Level 138 136-145 mmol/L Potassium Level 3.8 3.5-5.1 mmol/L Chloride Level 101 98-107 mmol/L Carbon Dioxide Level 29 20-31 mmol/L Anion Gap 8 5-15 Blood Urea Nitrogen 8 L 9-23 mg/dL Creatinine 0.79 0.700-1.30 mg/dL Glomerular Filtration Rate Calc 106 >90 mL/min BUN/Creatinine Ratio 10.1 10.0-20.0 Serum Glucose 113 H 74-106 mg/dL Calcium Level 10.5 H 8.7-10.4 mg/dL Total Bilirubin 0.3 0.2-1.0 mg/dL Aspartate Amino Transferase (AST) 17 13-40 U/L Alanine Aminotransferase (ALT) 10 7-40 U/L Alkaline Phosphatase 71 46-116 U/L B-Type Natriuretic Peptide 11.08 0-100 pg/mL Total Protein 7.3 5.7-8.2 g/dL Albumin 5.0 H 3.2-4.8 g/dL Lipase 34 12-53 U/L Plasma/Serum Blood Alcohol 3.5 <10 mg/dL Assessment/Plan Assessment/Plan # Acute abdominal pain likely due to constipation vs Panacreatitis # ?? Acute VS chronic pancreatitis # R/o sepsis - CT abdominal pelvis, pending -giving Fleet enema and lactulose -NPO for now # ? Alcohol withdrawal # Alcohol abuse disorder # Alcohol dependence -[facility] 6 -Ativan p.r.n. for anxiety -symptomatic management for now -closely monitor for symptoms -banana bag and IVF -counseled regarding cessation for more than 17 minutes # PUD -Protonix # depression without signs of suicidal or homicidal ideation PUD PPX: Protonix VTE PPX: Lovenox Diet: NPO Goals of care discussed with the patient for more than 29 minutes: Full code status Case discussed with Dr. Reyes, patient and nurse. Plan discussed with: Patient My Orders Orders - KAMARI NUNEZ RESIDENT Procedure Category Date Status Time Admit ADMIT 07/23/24 Transmitted 22:[address] 07/23/24 In Process 22:22 Code Status CODE 07/23/24 Transmitted 22:22 Sodium Chloride 0.9% PHA 07/23/24 In Process 22:30 Ondansetron Hcl PHA 07/23/24 In Process (Zofran) 22:30 Enoxaparin Sodium PHA 07/24/24 In Process (Lovenox) 10:00 Complete Blood Count LAB 07/24/24 Transmitted 04:00 Comprehensive LAB 07/24/24 Transmitted Metabolic Panel 04:00 Npo (Nothing By DIET 07/24/24 Transmitted Mouth) Diet Breakfast Condition: Stable RD 07/23/24 In Process 22:22 Acetaminophen Tablet PHA 07/23/24 In Process (Tylenol Tablet) 22:30 Nitroglycerin PHA 07/23/24 In Process Sublingual (Ntrostat 22:30 Morphine Sulfate PHA 07/23/24 In Process Injection 22:30 Oxygen By Nasal RT 07/23/24 Transmitted Cannula 22:22 Stat Ekg For Chest RD 07/23/24 In Process Pain 22:22 Notify Md Of Changes RD 07/23/24 In Process From Base 22:[address] 07/23/24 In Process 24 Hours 22:[address] 07/23/24 In Process Protocol 22:[address] 07/23/24 In Process Every Shift 22:22 Lactulose Oral PHA 07/24/24 In Process 10:00 Folic Acid... PHA 07/24/24 In Process 18:00 Lorazepam 2mg/Ml Inj PHA 07/23/24 In Process (Ativan Inj) 23:15 Pantoprazole PHA 07/24/24 In Process (Protonix) 10:00 Lactic Acid W/ Reflex LAB 07/23/24 In Process Order 23:01 Ct Ab Pel Wo Con-No CT 07/23/24 Taken Oral Or Iv 23:05 Date of Service: Jul 23, 2024 Billing Provider: JESUS RYEES MD Common Visit Codes: [id number] INP/OBS CARE (HIGH) KAMARI NUNEZ RESIDENT Jul 24, 2024 00:03 JESUS REYES MD Jul 24, 2024 11:27
[2024-07-24] MEDS: SODIUM CHLORIDE 0.9% 1,000 ML IV SCH (00:11)
[2024-07-24] MEDS: LACTULOSE 20Gm/30ML SOLN PO ONE (00:11)
[2024-07-24] MEDS: FLEET ENEMA(ADULT) 135 ML PR ONE ×2 (00:12→12:00)
[2024-07-24] MEDS: FOLIC ACID 1 MG in D5W 5% 50 ML INJ ONE (00:12)
[2024-07-24] MEDS: PANTOPRAZOLE 40 MG/10 ML VIAL INJ IV ONE (00:23)
[2024-07-24] MEDS: THIAMINE 100mg/ml INJ (200mg/2ml VIAL) IV ONE (00:23)
[2024-07-24 01:00] VITALS: BP 127/77; PULSE 77; RESP 18; TEMP 97.8; O2SAT 96
[2024-07-24] MEDS: LORazepam 2MG/ML-1ML VIAL IV PRN (03:20)
--- NOTE | 2024-07-24 03:26 | DVH ---
Exam: CT CT AB PEL WO CON-NO ORAL OR IV History: Abdominal pain Comparison Study: 06/04/2024, 07/04/2024, 07/18/2024 TECHNIQUE: Multidetector CT of the abdomen was performed from lung bases to pubic symphysis. Imaging was performed without IV contrast. Axial, coronal and sagittal multiplanar reformats were obtained fr om the axial data set by the technologist. Radiation optimization: All CT scans at this facility use at least one of these dose optimization zaki hniques: automated exposure control mA and/or kV adjustment per patient size (includes targeted exam s where dose is matched to clinical indication) or iterative reconstruction. Radiation Dose Information: CT Dose: CTDI volume is 5.2 mGy. Dose-length product is 301.2 mGy*cm FINDINGS: Evaluation of solid organs is limited due to lack of intravenous contrast use. Findings: Imaged portions of the lung bases appear unremarkable. Liver, spleen, gallbladder,adrenal glands, and kidneys appear unremarkable. Possible mild fat stranding adjacent to the gastric pylorus and pancre atic head with 0.5 cm lymph node. No evidence of bowel obstruction or focal bowel wall thickening. Moderate intracolonic stool. The a ppendix appears normal. No free fluid, free air, or adenopathy. No suspicious osseous lesion. IMPRESSION: Possible mild inflammatory change along the gastric pylorus/ pancreatic head. Correlation with amylas e and lipase levels is recommended. CT with oral and IV contrast would be of benefit.
[2024-07-24 03:53] LABS: Basophils # (auto) 0 10 ^3/uL (0-0.2); Basophils % (auto) 0.5 % (0.0-2.0); Eosinophils # (auto) 0.2 10 ^3/uL (0-0.8); Hematocrit 38.6 % (41.0-53.0); Hemoglobin 12.7 g/dL (13.5-17.5); Lymphocytes # (auto) 2.5 10 ^3/uL (0.4-5.4); Lymphocytes % (auto) 26.3 % (10.0-50.0); Mean Corpuscular Hemoglobin 31.5 pg (28.0-32.0); Mean Corpuscular Volume 95.5 fL (80.0-100.0); Monocytes # (auto) 1.1 10 ^3/uL (0-1.3); Monocytes % (auto) 11.4 % (0.0-12.0); Neutrophils # (auto) 5.8 10 ^3/uL (1.6-8.6); Neutrophils % (auto) 59.8 % (37.0-80.0); Platelet Count (auto) 385 10^3/uL (140-450); Red Blood Cells 4.04 10^6/uL (4.5-5.90); Red Cell Distribution Width 17.3 % (11.8-14.3); White Blood Cell 9.6 10^3/uL (4.4-10.8)
[2024-07-24 04:05] LABS: Albumin 4.3 g/dL (3.2-4.8); Alkaline Phosphatase 65 U/L (46-116); Anion Gap 8 (5-15); BUN/Creatinine Ratio 13.5 (10.0-20.0); Blood Urea Nitrogen 13 mg/dL (9-23); Calcium 9.6 mg/dL (8.7-10.4); Carbon Dioxide 28 mmol/L (20-31); Chloride 104 mmol/L (98-107); Glucose 104 mg/dL (74-106); Potassium 4.3 mmol/L (3.5-5.1); Sodium 140 mmol/L (136-145)
[2024-07-24 04:06] LABS: Bilirubin, Total 0.3 mg/dL (0.2-1.0); Total Protein 6.4 g/dL (5.7-8.2)
[2024-07-24 04:16] LABS: Alanine Aminotransferase < 9 U/L (7-40); Aspartate Aminotransferase 13 U/L (13-40)
[2024-07-24 05:00] VITALS: BP 113/69; PULSE 78; RESP 18; TEMP 98
--- NOTE | 2024-07-24 06:27 | DVH ---
EXAM: XR Chest, 1 View CLINICAL INDICATION: sob TECHNIQUE: Frontal view of the chest. COMPARISON: XY CHEST PORTABLE on DOS: 06/04/24, XY CHEST PORTABLE on DOS: 03/12/24, XY CHEST XRAY 1 V IEW on DOS: 01/20/24, CHEST PORTABLE on DOS: 04/19/20, CHEST XRAY 1 VIEW on DOS: 04/16/20 FINDINGS: LUNGS AND PLEURAL SPACES: Unremarkable. No consolidation. No pneumothorax. HEART: Unremarkable. No cardiomegaly. MEDIASTINUM: Unremarkable. Normal mediastinal contour. BONES/JOINTS: Unremarkable. No acute fracture. OTHER FINDINGS: . None. ... IMPRESSION: No acute cardiopulmonary process.
[2024-07-24 09:00] VITALS: BP 116/78; PULSE 93; RESP 18; TEMP 97.9; O2SAT 99
[2024-07-24] MEDS: SUCRALFATE 1 GM/10 ML ORAL SUSP PO SCH (10:11)
[2024-07-24] MEDS: PANTOPRAZOLE 40 MG/10 ML VIAL INJ IV SCH (10:11)
[2024-07-24] MEDS: LACTULOSE 20Gm/30ML SOLN PO SCH (10:11)
[2024-07-24] MEDS: ENOXAPARIN SOD 40 MG/0.4 ML SYRINGE SC SCH (10:12)
[2024-07-24 12:09] VITALS: BP 120/78; PULSE 52; RESP 18; TEMP 98.6; O2SAT 95
[2024-07-24] MEDS: POLYETHYLENE GLYCOL 17 GM PWDR PO ONE (13:50)
[2024-07-24] MEDS: DOCUSATE SOD 100 MG CAP PO ONE (13:50)
--- NOTE | 2024-07-24 16:14 | DVHDSRES ---
Discharge Summary Date of Admission Resident Creating Document: BRAULIO RATLIFF RESIDENT Jul 23, 2024 at 22:22 Date of Discharge: Jul 24, 2024 Admitting Diagnosis Abdominal pain Labs/Diagnostic Data: Laboratory Results Test 07/24/24 03:02 07/23/24 23:21 07/23/24 22:39 07/23/24 18:37 White Blood Count 9.6 10^3/uL (4.4-10.8) Red Blood Count 4.04 10^6/uL (4.5-5.90) Hemoglobin 12.7 g/dL (13.5-17.5) Hematocrit 38.6 % (41.0-53.0) Mean Corpuscular Volume 95.5 fL (80.0-100.0) Mean Corpuscular Hemoglobin 31.5 pg (28.0-32.0) Mean Corpuscular Hemoglobin Concent 33.0 g/dL (32.0-36.0) Red Cell Distribution Width 17.3 % (11.8-14.3) Platelet Count 385 10^3/uL (140-450) Mean Platelet Volume 7.5 fL (6.9-10.8) Neutrophils (%) (Auto) 59.8 % (37.0-80.0) Lymphocytes (%) (Auto) 26.3 % (10.0-50.0) Monocytes (%) (Auto) 11.4 % (0.0-12.0) Eosinophils (%) (Auto) 2.0 % (0.0-7.0) Basophils (%) (Auto) 0.5 % (0.0-2.0) Neutrophils # (Auto) 5.8 10 ^3/uL (1.6-8.6) Lymphocytes # (Auto) 2.5 10 ^3/uL (0.4-5.4) Monocytes # (Auto) 1.1 10 ^3/uL (0-1.3) Eosinophils # (Auto) 0.2 10 ^3/uL (0-0.8) Basophils # (Auto) 0 10 ^3/uL (0-0.2) Nucleated Red Blood Cells 0.0 % Sodium Level 140 mmol/L (136-145) Potassium Level 4.3 mmol/L (3.5-5.1) Chloride Level 104 mmol/L (98-107) Carbon Dioxide Level 28 mmol/L (20-31) Anion Gap 8 (5-15) Blood Urea Nitrogen 13 mg/dL (9-23) Creatinine 0.96 mg/dL (0.700-1.30) Glomerular Filtration Rate Calc 94 mL/min (>90) BUN/Creatinine Ratio 13.5 (10.0-20.0) Serum Glucose 104 mg/dL (74-106) Calcium Level 9.6 mg/dL (8.7-10.4) Total Bilirubin 0.3 mg/dL (0.2-1.0) Aspartate Amino Transferase (AST) 13 U/L (13-40) Alanine Aminotransferase (ALT) < 9 U/L (7-40) Alkaline Phosphatase 65 U/L (46-116) Total Protein 6.4 g/dL (5.7-8.2) Albumin 4.3 g/dL (3.2-4.8) Lactic Acid Level 0.8 mmol/L (0.4-2.0) Ammonia < 10 umol/L (11-32) B-Type Natriuretic Peptide 11.08 pg/mL (0-100) Lipase 34 U/L (12-53) Plasma/Serum Blood Alcohol 3.5 mg/dL (<10) Other Laboratory Tests 07/24/24 03:02 Brief Hx & Hospital Course: 54-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 He says that he has anorexia and has not been eating for the past 9 days, associated with nausea and vomiting which is yellowish in color, for which he has tried all the eeyk-wna-oykjkxm medication including aspirin, omeprazole, antacids but denies taking ibuprofen. He had upper EGD 4 years back which showed ulcers. He reports with mid abdominal pain radiating to the back. Patient came in with a WBC count of 12 CT abdomen shows mild inflammation along the gastric pylorus/pancreatic head. Reports weight loss. Last drink was yesterday. Social history: Lives in his shed outside brother's house, drinks 9-10 drinks a day During hospitalization, CT scan abdomen showed:Possible mild inflammatory change along the gastric pylorus/ pancreatic head. Correlation with amylase and lipase levels is recommended. CT with oral and IV contrast would be of benefit. Patient was diagnosed with the abdominal pain secondary to gastritis secondary to alcohol use. Fleet enema and lactulose was administered, patient had a bowel movement. He tolerated clear liquid diet well. He was started on pantoprazole and Carafate, his CIWA score was 6 and therefore Ativan p.r.n. for anxiety was given along with banana bag and IV fluids. 07/24/2024-patient is hemodynamically stable/clinically stable and is therefore be discharged home with the recommendation to continue pantoprazole and Carafate along with a strong recommendations made to avoid alcohol use. We agreed to the discharge planning. Operations or Procedures ORDERING PHYSICIAN: KAMARI NUNEZ RESIDENT PROCEDURE(s): ABPL - CT AB PEL WO CON-NO ORAL OR IV REASON: Abdominal pain ORDER NUMBER(s): [id number], ACCESSION NUMBER(s): [id number] Exam: CT CT AB PEL WO CON-NO ORAL OR IV History: Abdominal pain Comparison Study: 06/04/2024, 07/04/2024, 07/18/2024 TECHNIQUE: Multidetector CT of the abdomen was performed from lung bases to pubic symphysis. Imaging was performed without IV contrast. Axial, coronal and sagittal multiplanar reformats were obtained from the axial data set by the technologist. Radiation optimization: All CT scans at this facility use at least one of these dose optimization techniques: automated exposure control mA and/or kV adjustment per patient size (includes targeted exams where dose is matched to clinical indication) or iterative reconstruction. Radiation Dose Information: CT Dose: CTDI volume is 5.2 mGy. Dose-length product is 301.2 mGy*cm FINDINGS: Evaluation of solid organs is limited due to lack of intravenous contrast use. Findings: Imaged portions of the lung bases appear unremarkable. Liver, spleen, gallbladder,adrenal glands, and kidneys appear unremarkable. Possible mild fat stranding adjacent to the gastric pylorus and pancreatic head with 0.5 cm lymph node. No evidence of bowel obstruction or focal bowel wall thickening. Moderate intracolonic stool. The appendix appears normal. No free fluid, free air, or adenopathy. No suspicious osseous lesion. IMPRESSION: Possible mild inflammatory change along the gastric pylorus/ pancreatic head. Correlation with amylase and lipase levels is recommended. CT with oral and IV contrast would be of benefit. ATED BY: MERVIN FRITZ MD DICTATED DATE/TIME: 07/24/24325 SIGNED BY: MERVIN FRITZ MD SIGNED DATE/TIME: 07/24/24325 CC: Condition at Discharge: Stable Final Diagnosis/Problems List Abdominal pain secondary to peptic ulcer disease and gastritis Anorexia Secondary to alcoholic use disorder Alcohol withdrawal depression without signs of suicidal or homicidal ideation Ruled out sepsis Ruled out Pancreatitis Discharge Disposition: Home Discharge Instruct/Medications Activity: No Restrictions, As Tolerated Follow Up/Referral: Clear liquid diet for 4 days Followed by full liquid diet Follow up with primary care physician within 7 days Follow up with DC clinic appointment within 7 days Medications: Docusate 100 mg b.i.d. for 30 days MiraLax 17 g p.o. for next 10 days Discharge Statement: "Patient was advised to return to the ER or call 911 if any headaches, dizziness, shortness of breath, chest pain, abdominal pain, bleeding, fevers, or worsening of medical condition. Patient was counseled about treatment plan, medications, possible side effects, patientverbalized understanding. All questions were answered to the best of my ability. This discharge took greater then 30 minutes in planning, reviewing documentation, counseling the patient, and discussing with other team members." ASSESSMENT ASSESSMENT Assessment BRAULIO RATLIFF RESIDENT Jul 24, 2024 16:14
[2024-07-24] MEDS ORDERED: DOCU-94 PO ×2 (16:30)
[2024-07-24] MEDS ORDERED: POLY335015 PO ×2 (16:30)
--- NOTE | 2024-07-24 16:49 | DVHPNRES ---
Progress Note Date Seen: Jul 24, 2024 Resident Creating Document: BRAULIO RATLIFF RESIDENT Medical Necessity Reason Pt with a Central, PICC or Fol: No Subjective Review of Systems DALTON MANCINI is a 54-year-old male with a PMH of anxiety, depression, HTN, PUD, alcohol dependence presented to the ED with the chief complaints abdominal pain since morning on the day of admission. Patient reported he has been drinking every day, last drink yesterday morning, patient started having abdominal pain radiating to back associated with nausea, vomiting, constipation and attributed patient is not eating and drinking well and feels like disoriented which prompted him to visit ED. Patient recently admitted this facility due to alcohol withdrawal symptoms. Patient denies chest pain, shortness of breath, diarrhea, flu-like symptoms and other acute associated symptoms PMH: Anxiety, HTN, depression, PUD, PSH: Denies Family history: Not significant Social history: Lives with a brother. Drinks 10-15 drinks per day, smokes less than 1 pack per day but denies other drug abuse Allergies: No known allergies Patient seen and examined at the bedside. Had a small bowel movement this morning. Enema administered. Objective vital signs Vital Sign Date Time Temp Pulse Resp B/P (MAP) Pulse Ox O2 Delivery O2 Flow Rate FiO2 07/24/24 12:09 98.6 52 18 120/78 (92) 95 98.6 medications Current Medications Medications Dose Ordered Sig/Rick Route Start Time Stop Time Status Last Admin Dose Admin Ondansetron HCl 4 mg Q4HP PRN IV 07/23/24 22:30 Enoxaparin Sodium 40 mg DAILY SC 07/24/24 10:00 07/24/24 10:12 40 MG Acetaminophen 650 mg Q6HP PRN PO 07/23/24 22:30 Nitroglycerin 0.4 mg Q5MINP PRN SL 07/23/24 22:30 Morphine Sulfate 2 mg Q30M PRN IV 07/23/24 22:30 Folic Acid 1 mg/ Multivitamins 10 ml/Magnesium Sulfate 8 meq/ Thiamine HCl 100 mg/Dextrose 1,013.2 ml @ 125.001 mls/hr DAILY@1800 INJ 07/24/24 18:00 Lorazepam 1 mg Q6HP PRN IV 07/23/24 23:15 07/24/24 03:20 1 MG Sucralfate 1 gm QID@0600,1130,1700,2200 PO 07/24/24 08:15 07/24/24 10:56 1 GM Docusate Sodium 100 mg BID PO 07/24/24 22:00 Famotidine 40 mg DAILY PO 07/25/24 10:00 Examination Patient lying in bed, in no acute distress General: Well-built, afebrile, palor, mucosae are moist Cardiovascular: Regular S1 and S2. No murmurs, gallops or rubs. No JVD elevation. No pedal edema Respiratory: Normal B/L air entry on room air. Clear lung sounds on auscultation Abdomen: Soft, lower abdominal tenderness. nondistended, normoactive bowel sounds, no rebound tenderness, no organomegaly, no masses Genitourinary: Deferred MSK/skin: Mobilizes 4 limbs. Skin is dry and warm Neurological: No motor, no sensitive deficits, normal speech. Pupils are isocoric and reactive. Psych/Mental Status: A/Ox3 laboratory and microbiology Laboratory Tests 07/24/24 03:02 Test 07/24/24 03:02 Range/Units Serum Glucose 104 74-106 mg/dL Labs and/or images reviewed: Labs reviewed by me, Image(s) reviewed by me Problem List/Assessment/Plan Problem List/Assessment/Plan Sirs w/o EOD due to acute gastritis Abdominal pain secondary to gastritis Acute on chronic constipation Ruled out pancreatitis Ruled out sepsis Patient had EGD for years back which showed peptic ulcer disease CT scan showed Continue pantoprazole and Carafate Continue ceftriaxone and metronidazole IV Docusate 100 mg b.i.d. and MiraLax 17 g p.o. daily Alcoholic use dependence Alcoholic withdrawal-CIWA 6 Ativan p.r.n. for anxiety Started banana bag and IV fluids Counseled regarding cessation for more than 23 minutes Depression-no HI/SI Continue clear liquid diet Lovenox 40 mg sc daily Plan discussed with patient in which all questions have been answered Case discussed with Dr. Higgins Plan discussed with: Patient My Orders My Orders Orders - BRAULIO RATLIFF RESIDENT Procedure Category Date Status Time Clear Liq Diet DIET 07/24/24 Transmitted Breakfast Sucralfate Susp PHA 07/24/24 In Process (Carafate Susp) 08:15 Docusate Sodium PHA 07/24/24 In Process Capsule (Colace 22:00 Famotidine Tablet PHA 07/25/24 In Process (Pepcid Tablet) 10:[address] 07/24/24 In Process Clinic F/U 16:14 Discharge DISCHARGE 07/24/24 Transmitted 16:22 BRAULIO ARTLIFF RESIDENT Jul 24, 2024 16:49
[2024-07-24 17:30] VITALS: BP_SYST 124; BP_SYST 141; BP_DIAS 69; BP_DIAS 78; PULSE 82; RESP 18; TEMP 98; TEMP 98.2; O2SAT 98
[2024-07-24] MEDS: chlordiazePOXIDE HCL 25 MG CAP PO ONE (18:48)
[2024-07-24] MEDS: ACETAMINOPHEN 325 MG TAB PO PRN (18:49)
[2024-07-24] MEDS: MULTIPLE VITAMIN TAB PO ONE (18:56)
[2024-07-24] MEDS: FOLIC ACID 1 MG, MULTIPLE VITAMIN 10 ML, MAGNESIUM SULF SDV 50% 8 MEQ, THIAMINE INJ 100... INJ SCH (19:30)
[2024-07-24 20:00] VITALS: BP 126/82; PULSE 75; RESP 16; TEMP 98.1; O2SAT 96
[2024-07-24] MEDS: DOCUSATE SOD 100 MG CAP PO SCH (21:08)
[2024-07-24] MEDS ORDERED: LACTULOSE 20Gm/30ML SOLN PO SCH (22:00)
[2024-07-25 01:00] VITALS: BP 123/66; PULSE 65; RESP 18; TEMP 97.7; O2SAT 93
[2024-07-25 04:54] VITALS: BP 122/60; PULSE 73; RESP 18; TEMP 97.6; O2SAT 92
[2024-07-25 09:00] VITALS: BP 147/90; PULSE 74; RESP 20; TEMP 98.1; O2SAT 100
[2024-07-25] MEDS: FAMOTIDINE 20 MG TAB PO SCH (09:57)
[2024-07-25] MEDS: MULTIPLE VITAMIN TAB PO SCH (10:18)
--- NOTE | 2024-07-25 11:12 | DVHDSRES ---
Discharge Summary Date of Admission Resident Creating Document: BRAULIO RATLIFF RESIDENT Jul 23, 2024 at 22:22 Date of Discharge: Jul 24, 2024 Labs/Diagnostic Data: Laboratory Results Test 07/24/24 03:02 07/23/24 23:21 07/23/24 22:39 07/23/24 18:37 White Blood Count 9.6 10^3/uL (4.4-10.8) Red Blood Count 4.04 10^6/uL (4.5-5.90) Hemoglobin 12.7 g/dL (13.5-17.5) Hematocrit 38.6 % (41.0-53.0) Mean Corpuscular Volume 95.5 fL (80.0-100.0) Mean Corpuscular Hemoglobin 31.5 pg (28.0-32.0) Mean Corpuscular Hemoglobin Concent 33.0 g/dL (32.0-36.0) Red Cell Distribution Width 17.3 % (11.8-14.3) Platelet Count 385 10^3/uL (140-450) Mean Platelet Volume 7.5 fL (6.9-10.8) Neutrophils (%) (Auto) 59.8 % (37.0-80.0) Lymphocytes (%) (Auto) 26.3 % (10.0-50.0) Monocytes (%) (Auto) 11.4 % (0.0-12.0) Eosinophils (%) (Auto) 2.0 % (0.0-7.0) Basophils (%) (Auto) 0.5 % (0.0-2.0) Neutrophils # (Auto) 5.8 10 ^3/uL (1.6-8.6) Lymphocytes # (Auto) 2.5 10 ^3/uL (0.4-5.4) Monocytes # (Auto) 1.1 10 ^3/uL (0-1.3) Eosinophils # (Auto) 0.2 10 ^3/uL (0-0.8) Basophils # (Auto) 0 10 ^3/uL (0-0.2) Nucleated Red Blood Cells 0.0 % Sodium Level 140 mmol/L (136-145) Potassium Level 4.3 mmol/L (3.5-5.1) Chloride Level 104 mmol/L (98-107) Carbon Dioxide Level 28 mmol/L (20-31) Anion Gap 8 (5-15) Blood Urea Nitrogen 13 mg/dL (9-23) Creatinine 0.96 mg/dL (0.700-1.30) Glomerular Filtration Rate Calc 94 mL/min (>90) BUN/Creatinine Ratio 13.5 (10.0-20.0) Serum Glucose 104 mg/dL (74-106) Calcium Level 9.6 mg/dL (8.7-10.4) Total Bilirubin 0.3 mg/dL (0.2-1.0) Aspartate Amino Transferase (AST) 13 U/L (13-40) Alanine Aminotransferase (ALT) < 9 U/L (7-40) Alkaline Phosphatase 65 U/L (46-116) Total Protein 6.4 g/dL (5.7-8.2) Albumin 4.3 g/dL (3.2-4.8) Lactic Acid Level 0.8 mmol/L (0.4-2.0) Ammonia < 10 umol/L (11-32) B-Type Natriuretic Peptide 11.08 pg/mL (0-100) Lipase 34 U/L (12-53) Plasma/Serum Blood Alcohol 3.5 mg/dL (<10) Other Laboratory Tests 07/24/24 03:02 Brief Hx & Hospital Course: 54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 He says that he has anorexia and has not been eating for the past 9 days, associated with nausea and vomiting which is yellowish in color, for which he has tried all the rtzv-hyg-svyrrkn medication including aspirin, omeprazole, antacids but denies taking ibuprofen. He had upper EGD 4 years back which showed ulcers. He reports with mid abdominal pain radiating to the back. Patient came in with a WBC count of 12 CT abdomen shows mild inflammation along the gastric pylorus/pancreatic head. Reports weight loss. Last drink was yesterday. Social history: Lives in his shed outside brother's house, drinks 9-10 drinks a day During hospitalization, CT scan abdomen showed:Possible mild inflammatory change along the gastric pylorus/ pancreatic head. Correlation with amylase and lipase levels is recommended. CT with oral and IV contrast would be of benefit. Patient was diagnosed with the abdominal pain secondary to gastritis secondary to alcohol use. Fleet enema and lactulose was administered, patient had a bowel movement. He tolerated clear liquid diet well. He was started on pantoprazole and Carafate, his CIWA score was 6 and therefore Ativan p.r.n. for anxiety was given along with banana bag and IV fluids. 07/25/2024-patient is hemodynamically stable/clinically stable and is therefore be discharged home with the recommendation to continue pantoprazole and Carafate along with a strong recommendations made to avoid alcohol use. Patient was also advised to do clear liquid diet for the next 4 days followed by full liquid diet. Patient agreed to the discharge planning. He was prescribed docusate 100 mg b.i.d. and MiraLax 17 g p.o. for the next 10 days. Discharge Diagnosis: Sirs w/o EOD due to acute gastritis Abdominal pain secondary to gastritis Acute on chronic constipation Ruled out pancreatitis Ruled out sepsis Alcoholic use dependence Alcoholic withdrawal-CIWA 6 Depression-no HI/SI Operations or Procedures ORDERING PHYSICIAN: KAMARI NUNEZ RESIDENT PROCEDURE(s): ABPL - CT AB PEL WO CON-NO ORAL OR IV REASON: Abdominal pain ORDER NUMBER(s): [id number], ACCESSION NUMBER(s): [id number] Exam: CT CT AB PEL WO CON-NO ORAL OR IV History: Abdominal pain Comparison Study: 06/04/2024, 07/04/2024, 07/18/2024 TECHNIQUE: Multidetector CT of the abdomen was performed from lung bases to pubic symphysis. Imaging was performed without IV contrast. Axial, coronal and sagittal multiplanar reformats were obtained from the axial data set by the technologist. Radiation optimization: All CT scans at this facility use at least one of these dose optimization techniques: automated exposure control mA and/or kV adjustment per patient size (includes targeted exams where dose is matched to clinical indication) or iterative reconstruction. Radiation Dose Information: CT Dose: CTDI volume is 5.2 mGy. Dose-length product is 301.2 mGy*cm FINDINGS: Evaluation of solid organs is limited due to lack of intravenous contrast use. Findings: Imaged portions of the lung bases appear unremarkable. Liver, spleen, gallbladder,adrenal glands, and kidneys appear unremarkable. Possible mild fat stranding adjacent to the gastric pylorus and pancreatic head with 0.5 cm lymph node. No evidence of bowel obstruction or focal bowel wall thickening. Moderate intracolonic stool. The appendix appears normal. No free fluid, free air, or adenopathy. No suspicious osseous lesion. IMPRESSION: Possible mild inflammatory change along the gastric pylorus/ pancreatic head. Correlation with amylase and lipase levels is recommended. CT with oral and IV contrast would be of benefit. ATED BY: MERVIN FRITZ MD DICTATED DATE/TIME: 07/24/24325 SIGNED BY: MERVIN FRITZ MD SIGNED DATE/TIME: 07/24/24325 CC: Condition at Discharge: Stable Final Diagnosis/Problems List Sirs w/o EOD due to acute gastritis Abdominal pain secondary to gastritis Acute on chronic constipation Ruled out pancreatitis Ruled out sepsis Alcoholic use dependence Alcoholic withdrawal-CI Depression-no HI/SI Discharge Disposition: Home Discharge Instruct/Medications Diet: See Comment Diet comment: Clear liquid diet for 4 days Followed by full liquid diet Activity: No Restrictions, As Tolerated Follow Up/Referral: Clear liquid diet for 4 daysFollowed by full liquid dietFollow up with primary care physician within 7 daysFollow up with DC clinic appointment within 7 days Medications: Docusate 100 mg b.i.d. for 30 daysMiraLax 17 g p.o. for next 10 days Discharge Statement: "Patient was advised to return to the ER or call 911 if any headaches, dizziness, shortness of breath, chest pain, abdominal pain, bleeding, fevers, or worsening of medical condition. Patient was counseled about treatment plan, medications, possible side effects, patientverbalized understanding. All questions were answered to the best of my ability. This discharge took greater then 30 minutes in planning, reviewing documentation, counseling the patient, and discussing with other team members." ASSESSMENT ASSESSMENT Assessment Sirs w/o EOD due to acute gastritis Abdominal pain secondary to gastritis Acute on chronic constipation Alcoholic use dependence Alcoholic withdrawal-CIWA Date of Service: Jul 25, 2024 Billing Provider: CIRO SHERIFF MD Common Visit Codes: 73724-PLE/OBS DISCH DAY >30min BRAULIO RATLIFF RESIDENT Jul 25, 2024 11:12 CIRO SHERIFF MD Jul 27, 2024 11:11
== END 2024-07-25 11:50 | disposition home or self-care (01) | DRG 241 ==
LOC: ER 17:06 → EDBD 17:06 → OVERFLOW 22:22
PROVIDERS: ADMIT Student in an Organized Health Care Education/Training Program; ATTEND Student in an Organized Health Care Education/Training Program
DX: K29.20 Alcoholic gastritis without bleeding (principal); R65.10 Systemic inflammatory response syndrome (SIRS) of non-infectious origin without acute organ dysfunction; F10.239 Alcohol dependence with withdrawal, unspecified; K59.00 Constipation, unspecified; I10 Essential (primary) hypertension; F32.A Depression, unspecified; F41.9 Anxiety disorder, unspecified; Z87.11 Personal history of peptic ulcer disease; Z79.899 Other long term (current) drug therapy; Y90.9 Presence of alcohol in blood, level not specified
CPT/HCPCS: 36415; 71045; 74176; 80053; 80320; 82140; 83605; 83690; 83880; 85025; 96374; 96375; G0378; J2405; J2470; J7060

== ENCOUNTER 2024-07-28 22:00 | Emergency (ER) | payer MEDICAID ==
[~2024-07-28] VITALS: Ht 170.2 cm; Wt 68.2 kg
[~2024-07-28 22:00] MED LIST changes: +POLY335015 PO
[2024-07-28 23:23] LABS: Eosinophils # (auto) 0.2 10 ^3/uL (0-0.8); Hematocrit 38.8 % (41.0-53.0)
[2024-07-28 23:25] LABS: Basophils # (auto) 0.1 10 ^3/uL (0-0.2); Basophils % (auto) 0.9 % (0.0-2.0); Eosinophils % (auto) 1.9 % (0.0-7.0); Hemoglobin 12.7 g/dL (13.5-17.5); Lymphocytes # (auto) 2.8 10 ^3/uL (0.4-5.4); Mean Corpuscular Hgb Conc. 32.7 g/dL (32.0-36.0); Mean Corpuscular Volume 94.9 fL (80.0-100.0); Monocytes % (auto) 9.5 % (0.0-12.0); Neutrophils # (auto) 6.2 10 ^3/uL (1.6-8.6); Neutrophils % (auto) 60.7 % (37.0-80.0); Platelet Count (auto) 460 10^3/uL (140-450); Red Blood Cells 4.09 10^6/uL (4.5-5.90); White Blood Cell 10.3 10^3/uL (4.4-10.8)
[2024-07-28 23:50] LABS: Alanine Aminotransferase 14 U/L (7-40); Alkaline Phosphatase 55 U/L (46-116); Anion Gap 8 (5-15); BUN/Creatinine Ratio 10.8 (10.0-20.0); Calcium 9.4 mg/dL (8.7-10.4); Carbon Dioxide 27 mmol/L (20-31); Chloride 105 mmol/L (98-107); Potassium 3.9 mmol/L (3.5-5.1); Sodium 140 mmol/L (136-145)
[2024-07-28 23:51] LABS: Albumin 3.9 g/dL (3.2-4.8); Aspartate Aminotransferase 11 U/L (13-40); Bilirubin, Total 0.2 mg/dL (0.2-1.0); Blood Urea Nitrogen 9 mg/dL (9-23); Glucose 124 mg/dL (74-106); Total Protein 5.8 g/dL (5.7-8.2)
[2024-07-28 23:52] LABS: Acetaminophen < 2.0 UG/ML (10.0-20.0); Salicylate < 3.0 mg/dL (-30)
[2024-07-29 00:10] LABS: Blood Alcohol < 3.0 mg/dL (<10)
--- NOTE | 2024-07-29 00:18 | ED.PDOC ---
History of Present Illness HPI Comments 54 y/o M, with a history of anemia, anxiety, depression, HTN, PUD, and polysubstance abuse, is BIBA for c/o non-radiating, epigastric abdominal pain, nausea, vomiting, and fatigue, today. Patient is a poor historian and endorses on having symptoms, intermittently following initial onset 4x weeks ago. He comm ents on managing pain with alcohol and is, now, concern to for alcohol withdrawal. He denies any hematemesis, diarrhea, fever, chills, urinary symptoms, or other associated symptoms or modifiers at this time. Chief Complaint: Nausea/Vomiting Time Seen by MD: 23:20 Primary Care Provider: VLADISLAV Reviewed Notes: Nurses Notes, Final Inspector And Tester Notes, Medications, Allergies Allergies: Coded Allergies: NO KNOWN ALLERGIES (Unverified , 04/16/20) Home Meds Active Scripts Famotidine (PEPCID TABLET) 20 Mg Tb, 1 TAB PO BID for 30 Days, #60 TAB 5 Refills Prov:ANDREA AHUJA MD 07/29/24 Ondansetron HCl (Ondansetron Hydrochloride) 8 Mg Tab, 8 MG PO Q6HP PRN for 10 Days, #40 TAB Prov:ANDREA AHUJA MD 07/29/24 Chlordiazepoxide Hcl (Librium) 25 Mg Cp, 25 MG GT Q6HP PRN for 10 Days, #30 CAP Prov:ANDREA AHUJA MD 07/29/24 Polyethylene Glycol 3350 (Miralax) 17 Gm Pow, 17 GM PO DAILY for 10 Days, #10 POW 0 Refills Prov:BRAULIO RATLIFF RESIDENT 07/24/24 Docusate Sodium (Colace) 100 Mg Cap, 1 CAP PO BID for 30 Days, #30 CAP 0 Refills Prov:BRAULIO RATLIFF RESIDENT 07/24/24 Docusate Sodium (Colace) 100 Mg Cap, 1 CAP PO BID, #30 CAP Prov:SHERI SOLIS MD 07/22/24 Sucralfate (CARAFATE) 1 Gm Tab, 1 GM OR BID for 30 Days, #60 TAB Prov:EDYTA DUMONT NP 07/22/24 Sucralfate (CARAFATE SUSP) 1 Gm/10 Ml Ss, 10 ML PO BID, #600 ML 1 Refill Prov:EDYTA DUMONT NP 07/22/24 Pantoprazole Sodium Sesquihydr (Protonix) 40 Mg Tab, 40 MG PO DAILY for 30 Days, #30 TAB Prov:EDYTA DUMONT NP 07/22/24 Metronidazole (Flagyl) 500 Mg Tab, 1 TAB PO TID, #21 TAB Prov:BRE BROWN MD 07/05/24 Prochlorperazine Maleate (Compazine) 10 Mg Tb, 1 TAB PO TID for 10 Days, #30 TAB 3 Refills Prov:LYNETTE GRIFFIN MD 06/19/24 Omeprazole (Gnp Omeprazole) 20 Mg Tab, 1 TAB PO BID for 10 Days, #20 TAB 1 Refill Prov:LYNETTE GRIFFIN MD 06/19/24 Aluminum Hydroxide-Mag Carb (Gaviscon Extra Strength) 1 Chw Chw, 1 CHW PO QID for 10 Days, #40 TAB.CHEW Prov:LYNETTE GRIFFIN MD 06/19/24 Cyanocobalamin (B12) 1,000 Mcg Tab, 1000 MCG PO DAILY for 7 Days, #7 TAB 0 Refills Prov:JEANETTE MICHELE MD 06/06/24 Folic Acid (Folate) 400 Mcg Tab, 400 MCG PO DAILY for 30 Days, #30 TAB 0 Refills Prov:JEANETTE MICHELE MD 06/06/24 Thiamine Mononitrate (B1) 100 Mg Tab, 100 MG PO DAILY for 30 Days, #30 TAB 1 Refill Prov:JEANETTE MICHELE MD 06/06/24 Reported Medications Diphenhydramine Hcl (Diphenhydramine Hcl) 25 Mg Cap, 25 MG PO DAILYP PRN for ALCOHOL WITHDRAWAL SYMPTOMS, MG 03/13/24 Aspirin (Aspir-Low) 81 Mg Tab, 81 MG PO DAILY for 30 Days, MG 03/13/24 Alendronate Sodium (Alendronate Sodium) 70 Mg Tab, 1 TAB PO QWEEKLY 01/21/24 Information Source: Patient, Emergency Med Personnel Mode of Arrival: EMS Severity: Moderate Timing: Weeks Duration: Since onset Prehospital treatment: 12 Lead EKG, 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), 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 Past Medical History PAST MEDICAL HISTORY: Anemia, Anxiety, Depression, HTN, PUD Surgical History: Denies all surgeries Family History Family History: Reviewed,noncontributory to illness Social History Smoker: Cigarettes Alcohol: Heavy Drugs: Denies Drug Use Lives In: Home Constitutional: reports: fatigue Gastrointestinal: reports: abdominal pain, nausea, vomiting All Other Systems: Reviewed and Negative (negative unless otherwise stated above or in HPI) Physical Exam General Appearance: Mild Distress, Normal HEENT: Normal ENT Inspection, Pharynx Normal, TMs Normal Neck: Full Range of Motion, Non-Tender, Normal, Normal Inspection Respiratory: Chest Non-Tender, Lungs Clear, No Accessory Muscle Use, No Respiratory Distress, Normal Breath Sounds Cardiovascular: No Edema, No JVD, No Murmur, No Gallop, Normal Peripheral Pulses, Regular Rate/Rhythm Breast Exam: Deferred Gastrointestinal: Epigastric (mild tendernes), No Organomegaly, Non Tender, No Pulsatile Mass, Normal Bowel Sounds, Soft, Tenderness (mild epigastric tendernes) Genitalia: Deferred Pelvic: Deferred Rectal: Deferred Extremities: No calf tenderness, Normal capillary refill, Normal inspection, Normal range of motion, Non-tender, No pedal edema Musculoskeletal : Apperance: Normal Neurologic: Alert, 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 Was a procedure done?: No Differential Dx Considerations may include: PUD, gastritis, gastroenteritis, viral syndrome, GERD, spoiled food, alcohol abuse, alcohol dependency, alcohol withdrawals X-Ray, Labs, Meds, VS Vital Signs Date Time Temp Pulse Resp B/P (MAP) Pulse Ox O2 Delivery O2 Flow Rate FiO2 07/29/24 02:37 98.2 90 24 155/100 (118) 98 98.2 07/28/24 22:11 98.6 106 18 144/83 (103) 99 Lab Test 07/28/24 23:11 Range/Units White Blood Count 10.3 4.4-10.8 10^3/uL Red Blood Count 4.09 L 4.5-5.90 10^6/uL Hemoglobin 12.7 L 13.5-17.5 g/dL Hematocrit 38.8 L 41.0-53.0 % Mean Corpuscular Volume 94.9 80.0-100.0 fL Mean Corpuscular Hemoglobin 31.0 28.0-32.0 pg Mean Corpuscular Hemoglobin Concent 32.7 32.0-36.0 g/dL Red Cell Distribution Width 17.0 H 11.8-14.3 % Platelet Count 460 H 140-450 10^3/uL Mean Platelet Volume 7.6 6.9-10.8 fL Neutrophils (%) (Auto) 60.7 37.0-80.0 % Lymphocytes (%) (Auto) 27.0 10.0-50.0 % Monocytes (%) (Auto) 9.5 0.0-12.0 % Eosinophils (%) (Auto) 1.9 0.0-7.0 % Basophils (%) (Auto) 0.9 0.0-2.0 % Neutrophils # (Auto) 6.2 1.6-8.6 10 ^3/uL Lymphocytes # (Auto) 2.8 0.4-5.4 10 ^3/uL Monocytes # (Auto) 1.0 0-1.3 10 ^3/uL Eosinophils # (Auto) 0.2 0-0.8 10 ^3/uL Basophils # (Auto) 0.1 0-0.2 10 ^3/uL Nucleated Red Blood Cells 0.0 % Sodium Level 140 136-145 mmol/L Potassium Level 3.9 3.5-5.1 mmol/L Chloride Level 105 98-107 mmol/L Carbon Dioxide Level 27 20-31 mmol/L Anion Gap 8 5-15 Blood Urea Nitrogen 9 9-23 mg/dL Creatinine 0.83 0.700-1.30 mg/dL Glomerular Filtration Rate Calc 104 >90 mL/min BUN/Creatinine Ratio 10.8 10.0-20.0 Serum Glucose 124 H 74-106 mg/dL Calcium Level 9.4 8.7-10.4 mg/dL Total Bilirubin 0.2 0.2-1.0 mg/dL Aspartate Amino Transferase (AST) 11 L 13-40 U/L Alanine Aminotransferase (ALT) 14 7-40 U/L Alkaline Phosphatase 55 46-116 U/L Total Protein 5.8 5.7-8.2 g/dL Albumin 3.9 3.2-4.8 g/dL Lipase 30 12-53 U/L Salicylates Level < 3.0 -30 mg/dL Acetaminophen Level < 2.0 L 10.0-20.0 UG/ML Plasma/Serum Blood Alcohol < 3.0 <10 mg/dL Current Medications Medications (Trade) Dose Ordered Sig/Rick Route Start Time Stop Time Status Last Admin Sodium Chloride 1,000 ml @ 1,000 mls/hr Q1H ONCE IVB 07/28/24 23:00 07/28/24 23:59 DC 07/29/24 02:49 Lorazepam (Ativan Inj) 2 mg ONCE ONCE IV 07/28/24 23:00 07/28/24 23:01 DC 07/29/24 02:49 Ondansetron HCl (Zofran) 4 mg ONCE ONCE IV 07/28/24 23:00 07/28/24 23:01 DC 07/29/24 02:49 Time of 1ST Reevaluation: 23:50 Reevaluation 1ST: Unchanged Time of 2ND Reevaluation: 00:50 Reevaluation 2ND: Improved Patient Education/Counseling: Diagnosis, Treatment Family Education/Counseling: No Family Present Departure 1 Departure Time of Disposition: 00:50 Impression: Primary Impression: Alcohol abuse Disposition: 01 HOME / SELF CARE / HOMELESS Condition: Stable e-Prescriptions Famotidine (PEPCID TABLET) 20 Mg Tb 1 TAB PO BID for 30 Days, #60 TAB 5 Refills Prov: ANDREA AHUJA MD 07/29/24 Ondansetron HCl (Ondansetron Hydrochloride) 8 Mg Tab 8 MG PO Q6HP PRN for 10 Days, #40 TAB Prov: ANDREA AHUJA MD 07/29/24 Chlordiazepoxide Hcl (Librium) 25 Mg Cp 25 MG GT Q6HP PRN for 10 Days, #30 CAP Prov: ANDREA AHUJA MD 07/29/24 Discharged With: Self Critical Care Note Critical Care Time?: No Stability Stability form required: No Heart Score Heart Score: Heart Score Response (Comments) Value History N/A 0 EKG N/A 0 Age N/A 0 Risk Factors N/A 0 Troponin N/A 0 Total 0 I personally scribed for ANDREA AHUJA MD ([email or web address]) on 07/29/24 at 00:18. Electronically submitted by Danny Coulter ([email or web address]). ANDREA AHUJA MD Jul 29, 2024 00:18
[2024-07-29 00:21] LABS: Lipase 30 U/L (12-53)
[2024-07-29] MEDS ORDERED: FAMO20TA10 PO (00:36)
[2024-07-29] MEDS ORDERED: CHL25C GT (00:36)
[2024-07-29] MEDS ORDERED: ONDA-180 PO (00:36)
[2024-07-29 02:37] VITALS: BP 155/100; PULSE 90; TEMP 98.2
[2024-07-29] MEDS: ONDANSETRON HCL 4 MG/2 ML VIAL IV ONE (02:49)
[2024-07-29] MEDS: SODIUM CHLORIDE 0.9% 1,000 ML IVB ONE (02:49)
[2024-07-29] MEDS: LORazepam 2MG/ML-1ML VIAL IV ONE (02:49)
[2024-07-29 03:00] VITALS: RESP 18; O2SAT 96
== END 2024-07-29 03:35 | disposition home or self-care (01) ==
LOC: ER 22:00 → EDBD 22:00 → ER 07-29 03:35
DX: F10.10 Alcohol abuse, uncomplicated (principal); F41.9 Anxiety disorder, unspecified; I10 Essential (primary) hypertension; F17.210 Nicotine dependence, cigarettes, uncomplicated; R11.2 Nausea with vomiting, unspecified; Z87.11 Personal history of peptic ulcer disease; Z79.82 Long term (current) use of aspirin; Z79.899 Other long term (current) drug therapy; Y90.0 Blood alcohol level of less than 20 mg/100 ml
CPT/HCPCS: 36415; 80053; 80320; 80329; 83690; 85025; 96361; 96374; 96375; 99284; J2060; J2405; J7030

== ENCOUNTER 2024-07-29 21:10 | Inpatient (IN) | payer MEDICAID ==
[~2024-07-29] VITALS: Ht 182.9 cm; Wt 68.4 kg
[~2024-07-29 21:10] MED LIST changes: +CHL25C GT; +FAMO20TA10 PO; +ONDA-180 PO
--- NOTE | 2024-07-29 21:25 | ED.PDOC ---
Psychiatric HPI Comments HPI: Poor Historian. 54y M who presents to the ED via EMS for chief complaint of anxiety and ETOH withdrawal. - EMS states pt was at friends house having a panic attack and EMS was called - Pt states he is about to go through ETOH withdrawal with noted last drink 5 hours prior - pt told EMS he took 16 shots of vodka - pt since last drink has been having diffuse abdominal pain and noted to be agitated and in distress due to his 10/10 abdominal pain. Patient states having chronic abdominal pain for the last six months but got worse today. -pt also states he has history of ulcers but states he has not taken any medications in many years -pt otherwise denies any other symptoms at this time. We were later informed that the patient was seen in the ER yesterday. Past medical history: HTN, ETOH abuse Past surgical history: unknowbn Social history: denies tobacco use, heavy ETOH use, denies drug use Medications: denies Allergies: nkda REVIEW OF SYSTEMS: CONSTITUTIONAL: Denies acute: fever, diaphoresis, chills, HEAD: Denies acute: headache, photophobia Eyes: Denies acute: Double vision, vision loss, eye pain, eye discharge. EARS: Denies acute: tinnitus, hearing loss, ear discharge, ear pain, THROAT: Denies acute: sore throat, swelling, difficulty swallowing , pain with swallowing, change in voice. NECK: Denies acute: neck pain, neck swelling, stiff neck. HEART: Denies acute : chest pain, palpitations, LUNGS: Denies acute: SOB, wheezing, cough, hemoptysis ABDOMEN: Denies acute: abdominal pain, Nausea, Vomiting, diarrhea, melena , hematemesis, hematochezia SKIN: Denies acute: rash, redness, lesions, itchiness. EXTREMITIES: Denies acute: calf pain, numbness, tingling, weakness, denies pain in extremity. Denies acute: Low back pain. Neuro: Denies acute: focal neurological deficit, motor or sensory focal neurological deficit, tremors, seizure like activity, confusion, dizziness, change in mental status, loss of bowel or bladder function, cauda equina like symptoms. : Denies acute: dysuria, hematuria, flank pain, increase in urinary frequency. PSYCH: Denies acute: hallucination, suicidal ideation, homicidal ideation. PHYSICAL EXAM: General: [id number] acute distress, awake and alert. Head: normocephalic, atraumatic. Neck: supple, trachea is midline, no swelling. Throat: Normal phonation. Eyes:, no erythema, no purulent discharge, no proptosis, no icterus. Heart: regular rate, regular rhythm, no significant murmur appreciated. Lungs: no apparent respiratory distress, Able to speak in full sentences. No wheezing, no rhonchi, no crackles. No stridors Clear to auscultation bilaterally. Abdomen: Generalized nonspecific tender to palpation, non distended, soft, no guarding, no rebound, + bowel sounds. Neuro: Awake, Alert, oriented to name, self, situation, follows commands GCS=15. Speech is normal. Skin: no petechia, no purpura, no cyanosis, non-pale, not jaundice. Lower extremities: --no - Pitting edema no deformity, no focal swelling, no calf TTP. Makes eye contact. moves all four extremities. Face: no apparent facial droop. 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 Was a procedure done?: No Psych Differential Dx Psych. Differential Dx: Anxiety, Bipolar Disorder, Depression, Hopeless, Panic Disorder, Schizoprenia, Sleepless, Suicidal OD Differential Dx: Alcohol Abuse, Conversion Disorder, Delirium, Drug Overdose, Renal Failure, Substance Abuse Other Differentail Dx As far as abdominal pain: DDX include but not limited to diverticulitis, colitis, gastroenteritis, acute abdomen, SBO, enteritis, constipation, volvulus, appendicitis, Gallbladder disease, choledocolithiasis, ascending cholangitis, pancreatitis, intraAbdominal mass/neoplasm, hepatitis, UTI, pylonephritis, kidney stone, aneurysm, dissection, Inflammatory bowel disease, gastroparesis, ischemic bowel. X-Ray, Labs, Meds, VS Vital Signs Date Time Temp Pulse Resp B/P (MAP) Pulse Ox O2 Delivery O2 Flow Rate FiO2 07/29/24 21:23 98.1 116 20 180/100 (126) 100 Lab Test 07/29/24 22:42 07/29/24 21:30 Range/Units Troponin I High Sensitivity < 3 L < 3 L </=54 ng/L White Blood Count 11.4 H 4.4-10.8 10^3/uL Red Blood Count 4.07 L 4.5-5.90 10^6/uL Hemoglobin 12.6 L 13.5-17.5 g/dL Hematocrit 38.0 L 41.0-53.0 % Mean Corpuscular Volume 93.5 80.0-100.0 fL Mean Corpuscular Hemoglobin 30.9 28.0-32.0 pg Mean Corpuscular Hemoglobin Concent 33.0 32.0-36.0 g/dL Red Cell Distribution Width 16.4 H 11.8-14.3 % Platelet Count 447 140-450 10^3/uL Mean Platelet Volume 7.5 6.9-10.8 fL Neutrophils (%) (Auto) 69.3 37.0-80.0 % Lymphocytes (%) (Auto) 19.9 10.0-50.0 % Monocytes (%) (Auto) 8.7 0.0-12.0 % Eosinophils (%) (Auto) 1.1 0.0-7.0 % Basophils (%) (Auto) 1.0 0.0-2.0 % Neutrophils # (Auto) 7.9 1.6-8.6 10 ^3/uL Lymphocytes # (Auto) 2.3 0.4-5.4 10 ^3/uL Monocytes # (Auto) 1.0 0-1.3 10 ^3/uL Eosinophils # (Auto) 0.1 0-0.8 10 ^3/uL Basophils # (Auto) 0.1 0-0.2 10 ^3/uL Nucleated Red Blood Cells 0.1 % Sodium Level 139 136-145 mmol/L Potassium Level 3.8 3.5-5.1 mmol/L Chloride Level 105 98-107 mmol/L Carbon Dioxide Level 25 20-31 mmol/L Anion Gap 9 5-15 Blood Urea Nitrogen 8 L 9-23 mg/dL Creatinine 0.81 0.700-1.30 mg/dL Glomerular Filtration Rate Calc 105 >90 mL/min BUN/Creatinine Ratio 9.9 L 10.0-20.0 Serum Glucose 115 H 74-106 mg/dL Lactic Acid Level 1.7 0.4-2.0 mmol/L Calcium Level 8.8 8.7-10.4 mg/dL Magnesium Level 1.5 L 1.6-2.6 mg/dL Total Bilirubin 0.4 0.2-1.0 mg/dL Aspartate Amino Transferase (AST) 13 13-40 U/L Alanine Aminotransferase (ALT) < 9 7-40 U/L Alkaline Phosphatase 53 46-116 U/L Total Protein 5.8 5.7-8.2 g/dL Albumin 3.9 3.2-4.8 g/dL Lipase 27 12-53 U/L Plasma/Serum Blood Alcohol 5.3 <10 mg/dL [place] [address] Ph: [phone] DIAGNOSTIC IMAGING Diagnostic Imaging Report : [id number] Signed [id number] UN[facility]: [id number] : 1970 LOC: ER ROOM / BED: / AGE / SEX: 54 / M ADM STATUS: REG ER SERVICE 19 ORDERING PHYSICIAN: CECI ROJAS DO PROCEDURE(s): ABPL - CT AB PEL WO CON-NO ORAL OR IV REASON: abd pain ORDER NUMBER(s): [id number], ACCESSION NUMBER(s): [id number] Exam: CT CT AB PEL WO CON-NO ORAL OR IV History: abd pain Comparison Study: CT CT AB PEL WO CON-NO ORAL OR IV on DOS: 07/23/24, CT CT AB PEL WO CON-NO ORAL OR IV on DOS: 07/18/24 Technique: Multidetector spiral CT of the abdomen was performed from lung bases to pubic symphysis. Imaging was performed without IV contrast. Axial, coronal and sagittal multiplanar reformats were obtained from the axial data set by the technologist. Radiation Dose : 1. Abdomen/Pelvis: CTDIvol 5.1 mGy, DLP 296 mGy*cm. Findings: Evaluation of solid organs is limited due to lack of intravenous contrast use. Lung Bases: No acute or significant lung base finding. Normal heart size. No pleural or pericardial effusion. Liver: The liver is normal in size. No focal lesions. Gallbladder and Biliary Tree: Unremarkable Spleen: Unremarkable Pancreas: The pancreas is grossly normal in appearance. Adrenal Glands: Unremarkable Kidneys: Kidneys are grossly normal without calculi or hydronephrosis. Bladder: Grossly unremarkable for degree of distention. Bowel: The stomach is grossly normal in appearance. Minimal concentric wall thickening of the sigmoid colon with adjacent fat stranding, possibly related to underdistention versus mild diverticulitis. Normal appendix is visualized in t he right lower quadrant without findings of appendicitis. Ascites: Absent Lymphadenopathy: No mesenteric, retroperitoneal or periportal lymphadenopathy. Abdominal Wall and Mesentery: Unremarkable. Vasculature: The visualized abdominal aorta is normal in size and caliber. Evaluation of abdominal and pelvic vessels is limited due to lack of intravenous contrast. Pelvic Organs: Unremarkable Musculoskeletal: No aggressive focal bony lesions, acute fractures or dislocation. IMPRESSION: 1. Minimal concentric wall thickening of the sigmoid colon with adjacent fat stranding, possibly related to underdistention versus mild diverticulitis. No abscess identified. Radiation optimization: All CT scans at this facility use at least one of these dose optimization techniques: automated exposure control mA and/or kV adjustment per patient size (includes targeted exams where dose is matched to clinical indication) or iterative reconstruction. ATED BY: KARRIE RODRIGUEZ MD DICTATED DATE/TIME: 07/29/242204 SIGNED BY: KARRIE RODRIGUEZ MD SIGNED DATE/TIME: 07/29/242204 CC: Time of 1ST Reevaluation: 21:55 Reevaluation 1ST: Unchanged Time of 2ND Reevaluation: 01:22 Reevaluation 2ND: Improved Patient Education/Counseling: Diagnosis, Treatment Family Education/Counseling: No Family Present Comments Patient presented with the above HPI.-abdominal pain/anxiety/alcohol withdrawal-----workup was initiated. patient was found with the above mentioned diagnosis. the following medications were ordered: please refer to order lists of meds and tests obtained by myself Dr. Rojas. Patient ED course and VS have been stabilized. Patient has been reassessed in the ED and remained in a stable condition. Pertinent incidental findings were discussed with the patient and/or family. Patient/family voices understanding and is agreeable with plan. Patient has been observed in the ED adequate length of time to insure improvement/stability. Escalation of care considered: Consideration of escalation to observation or admission Patient was ADMITTED to the medicine team for further evaluation and treatment of their presentation. Given the patient's abdominal CT scan findings. I started him on empiric antibiotics Flagyl. All the reports of any imaging studies that were ordered by myself were reviewed by myself. Departure 1 Departure Time of Disposition: 23:08 Impression: Primary Impression: Alcohol withdrawal Additional Impressions: Abdominal pain Hypomagnesemia Disposition: ADMITTED INPATIENT Admit to: Tele Condition: Guarded Additional Instructions: [place] [address] Ph: [phone] DIAGNOSTIC IMAGING Diagnostic Imaging Report : [id number] Signed PATIENT: DALTON MANCINI ACCT: [id number] UNIT: [id number] : 1970 LOC: ER ROOM / BED: / AGE / SEX: 54 / M ADM STATUS: REG ER SERVICE 19 ORDERING PHYSICIAN: CECI ROJAS DO PROCEDURE(s): ABPL - CT AB PEL WO CON-NO ORAL OR IV REASON: abd pain ORDER NUMBER(s): [id number], ACCESSION NUMBER(s): [id number] Exam: CT CT AB PEL WO CON-NO ORAL OR IV History: abd pain Comparison Study: CT CT AB PEL WO CON-NO ORAL OR IV on DOS: 07/23/24, CT CT AB PEL WO CON-NO ORAL OR IV on DOS: 07/18/24 Technique: Multidetector spiral CT of the abdomen was performed from lung bases to pubic symphysis. Imaging was performed without IV contrast. Axial, coronal and sagittal multiplanar reformats were obtained from the axial data set by the technologist. Radiation Dose : 1. Abdomen/Pelvis: CTDIvol 5.1 mGy, DLP 296 mGy*cm. Findings: Evaluation of solid organs is limited due to lack of intravenous contrast use. Lung Bases: No acute or significant lung base finding. Normal heart size. No pleural or pericardial effusion. Liver: The liver is normal in size. No focal lesions. Gallbladder and Biliary Tree: Unremarkable Spleen: Unremarkable Pancreas: The pancreas is grossly normal in appearance. Adrenal Glands: Unremarkable Kidneys: Kidneys are grossly normal without calculi or hydronephrosis. Bladder: Grossly unremarkable for degree of distention. Bowel: The stomach is grossly normal in appearance. Minimal concentric wall thickening of the sigmoid colon with adjacent fat stranding, possibly related to underdistention versus mild diverticulitis. Normal appendix is visualized in the right lower quadrant without findings of appendicitis. Ascites: Absent Lymphadenopathy: No mesenteric, retroperitoneal or periportal lymphadenopathy. Abdominal Wall and Mesentery: Unremarkable. Vasculature: The visualized abdominal aorta is normal in size and caliber. Evaluation of abdominal and pelvic vessels is limited due to lack of intravenous contrast. Pelvic Organs: Unremarkable Musculoskeletal: No aggressive focal bony lesions, acute fractures or dislocation. IMPRESSION: 1. Minimal concentric wall thickening of the sigmoid colon with adjacent fat stranding, possibly related to underdistention versus mild diverticulitis. No abscess identified. Radiation optimization: All CT scans at this facility use at least one of these dose optimization techniques: automated exposure control mA and/or kV adjustment per patient size (includes targeted exams where dose is matched to clinical indication) or iterative reconstruction. ATED BY: KARRIE RODRIGUEZ MD DICTATED DATE/TIME: 07/29/242204 SIGNED BY: KARRIE RODRIGUEZ MD SIGNED DATE/TIME: 07/29/242204 CC: Discharged With: Self Critical Care Note Critical Care Time?: Yes (35 min-critical care time only) I personally scribed for CECI ROJAS DO ([email or web address]) on 07/29/24 at 21:25. Electronically submitted by Fernanda QUEEN). CECI ROJAS DO Jul 29, 2024 21:25
[2024-07-29] MEDS: LORazepam 2MG/ML-1ML VIAL IV ONE (21:30)
[2024-07-29] MEDS: SODIUM CHLORIDE 0.9% 1,000 ML IV ONE (21:30)
[2024-07-29 21:49] LABS: Basophils # (auto) 0.1 10 ^3/uL (0-0.2); Eosinophils # (auto) 0.1 10 ^3/uL (0-0.8); Eosinophils % (auto) 1.1 % (0.0-7.0); Hemoglobin 12.6 g/dL (13.5-17.5); Lymphocytes # (auto) 2.3 10 ^3/uL (0.4-5.4); Lymphocytes % (auto) 19.9 % (10.0-50.0); Mean Corpuscular Hemoglobin 30.9 pg (28.0-32.0); Mean Corpuscular Volume 93.5 fL (80.0-100.0); Monocytes % (auto) 8.7 % (0.0-12.0); Neutrophils # (auto) 7.9 10 ^3/uL (1.6-8.6); Neutrophils % (auto) 69.3 % (37.0-80.0); Nucleated Red Blood Cells % 0.1 %; Platelet Count (auto) 447 10^3/uL (140-450); Red Blood Cells 4.07 10^6/uL (4.5-5.90); Red Cell Distribution Width 16.4 % (11.8-14.3); White Blood Cell 11.4 10^3/uL (4.4-10.8)
[2024-07-29 22:08] LABS: Albumin 3.9 g/dL (3.2-4.8); Alkaline Phosphatase 53 U/L (46-116); Anion Gap 9 (5-15); Aspartate Aminotransferase 13 U/L (13-40); BUN/Creatinine Ratio 9.9 (10.0-20.0); Blood Alcohol 5.3 mg/dL (<10); Calcium 8.8 mg/dL (8.7-10.4); Carbon Dioxide 25 mmol/L (20-31); Chloride 105 mmol/L (98-107); Potassium 3.8 mmol/L (3.5-5.1); Sodium 139 mmol/L (136-145)
--- NOTE | 2024-07-29 22:08 | DVH ---
Exam: CT CT AB PEL WO CON-NO ORAL OR IV History: abd pain Comparison Study: CT CT AB PEL WO CON-NO ORAL OR IV on DOS: 07/23/24, CT CT AB PEL WO CON-NO ORAL OR IV on DOS: 07/18/24 Technique: Multidetector spiral CT of the abdomen was performed from lung bases to pubic symphysis. Imaging was performed without IV contrast. Axial, coronal and sagittal multiplanar reformats were ob tained from the axial data set by the technologist. Radiation Dose : 1. Abdomen/Pelvis: CTDIvol 5.1 mGy, DLP 296 mGy*cm. Findings: Evaluation of solid organs is limited due to lack of intravenous contrast use. Lung Bases: No acute or significant lung base finding. Normal heart size. No pleural or pericardial effusion. Liver: The liver is normal in size. No focal lesions. Gallbladder and Biliary Tree: Unremarkable Spleen: Unremarkable Pancreas: The pancreas is grossly normal in appearance. Adrenal Glands: Unremarkable Kidneys: Kidneys are grossly normal without calculi or hydronephrosis. Bladder: Grossly unremarkable for degree of distention. Bowel: The stomach is grossly normal in appearance. Minimal concentric wall thickening of the sigmoid colon with adjacent fat stranding, possibly related to underdistention versus mild diverticulitis. Normal appendix is visualized in the right lower quadrant without findings of appendicitis. Ascites: Absent Lymphadenopathy: No mesenteric, retroperitoneal or periportal lymphadenopathy. Abdominal Wall and Mesentery: Unremarkable. Vasculature: The visualized abdominal aorta is normal in size and caliber. Evaluation of abdominal a nd pelvic vessels is limited due to lack of intravenous contrast. Pelvic Organs: Unremarkable Musculoskeletal: No aggressive focal bony lesions, acute fractures or dislocation. IMPRESSION: 1. Minimal concentric wall thickening of the sigmoid colon with adjacent fat stranding, possibly rela gwendolyn to underdistention versus mild diverticulitis. No abscess identified. Radiation optimization: All CT scans at this facility use at least one of these dose optimization zaki hniques: automated exposure control mA and/or kV adjustment per patient size (includes targeted exam s where dose is matched to clinical indication) or iterative reconstruction.
[2024-07-29 22:09] LABS: Bilirubin, Total 0.4 mg/dL (0.2-1.0); Total Protein 5.8 g/dL (5.7-8.2)
[2024-07-29 22:13] LABS: Alanine Aminotransferase < 9 U/L (7-40); Blood Urea Nitrogen 8 mg/dL (9-23); Glucose 115 mg/dL (74-106); Magnesium 1.5 mg/dL (1.6-2.6)
[2024-07-29 22:25] LABS: Lipase 27 U/L (12-53)
[2024-07-29] MEDS: metroNIDAZOLE 500MG/100ML 100 ML IV SCH (23:30)
[2024-07-29] MEDS: FOLIC ACID 1 MG, MAGNESIUM SULF SDV 50% 8 MEQ, MULTIPLE VITAMIN 10 ML, THIAMINE INJ 100... INJ SCH (23:30)
[2024-07-30] VITALS (10 sets, daily range): BP systolic 115–172; BP diastolic 72–98; PULSE 76–102; RESP 18–20; TEMP 97.6–98.2; O2SAT 97–100
[2024-07-30] MEDS ORDERED: ACETAMINOPHEN 325 MG TAB PO PRN (01:45)
[2024-07-30] MEDS: chlordiazePOXIDE HCL 25 MG CAP PO ONE (03:15)
[2024-07-30] MEDS: LORazepam 0.5 MG TAB PO SCH (03:17)
[2024-07-30] MEDS: metroNIDAZOLE 500MG/100ML 100 ML IV ONE (03:44)
[2024-07-30] MEDS: THIAMINE HCL 100 MG TAB PO ONE (03:44)
[2024-07-30] MEDS: SODIUM CHLORIDE 0.9% 1,000 ML IV ONE (04:18)
--- NOTE | 2024-07-30 04:31 | DVHHPRES ---
History of Present Illness Resident Creating Document: SAGE WYATT RESIDENT Reason for Visit: acute abdominal pain History of Present Illness A 54-year-old male with a past medical history of anxiety, hypertension, peptic ulcer disease (PUD), and alcohol dependence presented to the ED with severe abdominal pain rated 10/10, described as constant and diffuse. The patient reported consuming 7 shots of whiskey at approximately 5 p.m. today. However, a prior chart documents consumption of 16 shots of vodka. He appeared agitated and distressed upon arrival, screaming in pain. A CT scan of the abdomen showed minimal wall thickening in the sigmoid colon and adjacent fat stranding, possibly related to underdistention versus mild diverticulitis. Given his history of alcohol use and a CIWA- score >10, the patient was admitted for alcohol withdrawal (alcohol levels on blood less than 10) management and further evaluation of his abdominal pain. Past Medical History Anxiety Hypertension Peptic ulcer disease (PUD) Alcohol dependence Social History Lives with his brother Reports consuming 10-15 drinks per day Smokes less than 1 pack per day Denies other drug use Review of Systems Constitutional: No: Fever, Chills, Sweats, Weakness, Malaise, Other Eyes: No: Pain, Vision change, Conjunctivae inflammation, Eyelid inflammation, Other, Redness ENT: No: Ear pain, Ear discharge, Nose pain, Nose discharge, Nose congestion, Mouth pain, Mouth swelling, Throat pain, Throat swelling, Other Respiratory: No: Cough, Dry, Shortness of breath, SOB with excertion, Wheezing, Hemoptysis, Pleuritic Pain, Sputum, Wheezing, Other Cardiovascular: No: Chest Pain, Palpitations, Orthopnea, Paroxysmal Noc. Dyspnea, Edema, Lt Headedness, Other Gastrointestinal: Nausea, Abdominal Pain; No: Vomiting, Diarrhea, Constipation, Melena, Hematochezia, Other Genitourinary: No Dysuria, No Frequency, No Incontinence, No Hematuria, No Retention, No Other Musculoskeletal: No: other, neck pain, shoulder pain, arm pain, back pain, hand pain, leg pain, foot pain Skin: No: Rash, Lesions, Jaundice, Bruising, Other Neurological: No: Weakness, Numbness, Incoordination, Change in speech, Confusion, Seizures, Other Allergies: Coded Allergies: NO KNOWN ALLERGIES (Unverified , 04/16/20) Medications Current Medications Medications Dose Ordered Sig/Rick Route Start Time Stop Time Status Last Admin Dose Admin Folic Acid 1 mg/ Magnesium Sulfate 8 meq/ Multivitamins 10 ml/Thiamine HCl 100 mg/Sodium Chloride 1,013.2 ml @ 126.247 mls/hr DAILY INJ 07/29/24 23:30 Ciprofloxacin 200 ml @ 200 mls/hr TID IV 07/29/24 23:30 UNV Metronidazole 100 ml @ 100 mls/hr TID IV 07/29/24 23:30 Acetaminophen 650 mg Q4HP PRN PO 07/30/24 01:45 Lorazepam 2 mg Q4H PO 07/30/24 03:00 07/30/24 03:17 2 MG Chlordiazepoxide HCl 10 mg Q4HPRN PRN PO 07/30/24 03:00 Exam Vital Signs Vital Signs Date Time Temp Pulse Resp B/P (MAP) Pulse Ox O2 Delivery O2 Flow Rate FiO2 07/30/24 02:41 97.8 89 19 156/94 (114) 99 97.8 07/30/24 02:10 Room Air* 0 21 General Appearance: Alert, Other (anxious, distracted ) HEENT: Atraumatic, PERRLA Respiratory: Clear to auscultation, Normal air movement Cardiovascular: Regular rate Abdominal: Normal bowel sounds, Other (generalized tenderness, no peritoneal signs ) Extremities: No clubbing, No cyanosis Skin: No rashes, No breakdown Neuro: Normal gait, Normal speech Psych/Mental Status: Mental status NL Labs/Xrays Labs Test 07/29/24 22:42 07/29/24 21:30 Range/Units Troponin I High Sensitivity < 3 L </=54 ng/L White Blood Count 11.4 H 4.4-10.8 10^3/uL Red Blood Count 4.07 L 4.5-5.90 10^6/uL Hemoglobin 12.6 L 13.5-17.5 g/dL Hematocrit 38.0 L 41.0-53.0 % Mean Corpuscular Volume 93.5 80.0-100.0 fL Mean Corpuscular Hemoglobin 30.9 28.0-32.0 pg Mean Corpuscular Hemoglobin Concent 33.0 32.0-36.0 g/dL Red Cell Distribution Width 16.4 H 11.8-14.3 % Platelet Count 447 140-450 10^3/uL Mean Platelet Volume 7.5 6.9-10.8 fL Neutrophils (%) (Auto) 69.3 37.0-80.0 % Lymphocytes (%) (Auto) 19.9 10.0-50.0 % Monocytes (%) (Auto) 8.7 0.0-12.0 % Eosinophils (%) (Auto) 1.1 0.0-7.0 % Basophils (%) (Auto) 1.0 0.0-2.0 % Neutrophils # (Auto) 7.9 1.6-8.6 10 ^3/uL Lymphocytes # (Auto) 2.3 0.4-5.4 10 ^3/uL Monocytes # (Auto) 1.0 0-1.3 10 ^3/uL Eosinophils # (Auto) 0.1 0-0.8 10 ^3/uL Basophils # (Auto) 0.1 0-0.2 10 ^3/uL Nucleated Red Blood Cells 0.1 % Sodium Level 139 136-145 mmol/L Potassium Level 3.8 3.5-5.1 mmol/L Chloride Level 105 98-107 mmol/L Carbon Dioxide Level 25 20-31 mmol/L Anion Gap 9 5-15 Blood Urea Nitrogen 8 L 9-23 mg/dL Creatinine 0.81 0.700-1.30 mg/dL Glomerular Filtration Rate Calc 105 >90 mL/min BUN/Creatinine Ratio 9.9 L 10.0-20.0 Serum Glucose 115 H 74-106 mg/dL Lactic Acid Level 1.7 0.4-2.0 mmol/L Calcium Level 8.8 8.7-10.4 mg/dL Magnesium Level 1.5 L 1.6-2.6 mg/dL Total Bilirubin 0.4 0.2-1.0 mg/dL Aspartate Amino Transferase (AST) 13 13-40 U/L Alanine Aminotransferase (ALT) < 9 7-40 U/L Alkaline Phosphatase 53 46-116 U/L Total Protein 5.8 5.7-8.2 g/dL Albumin 3.9 3.2-4.8 g/dL Lipase 27 12-53 U/L Plasma/Serum Blood Alcohol 5.3 <10 mg/dL Assessment/Plan Assessment/Plan 54-year-old male with a history of alcohol dependence presenting with acute abdominal pain and agitation in the setting of alcohol withdrawal, with elevated BPs and hypomagnesimia #Alcohol withdrawal CIWA 10 CIWA protocol IV fluids for rehydration Banana Bag #Intractable abdominal pain #Acute diverticulitis IV metronidazole + ciprofloxacin for empiric coverage Continue bowel rest and fluids Monitor for peritoneal signs # Hypertensive urgency Losartan 50 mg #Hypomagnesemia Mg IV given Case discussed with Dr Reyes Plan discussed with: Patient, Other (rn) My Orders Orders - SAGE WYATT RESIDENT Procedure Category Date Status Time Admit ADMIT 07/29/24 Transmitted 23:27 Folic Acid... PHA 07/29/24 In Process 23:30 Ciprofloxacin PHA 07/29/24 Pending 400mg/200ml (Cipro Iv) 23:30 Metronidazole PHA 07/29/24 In Process 500mg/100ml (Flagyl 23:30 Acetaminophen Tablet PHA 07/30/24 In Process (Tylenol Tablet) 01:45 Sodium Chloride 0.9% PHA 07/30/24 In Process 03:00 Lorazepam Tablet PHA 07/30/24 In Process (Ativan Tablet) 03:[address] 07/30/24 In Process Assessment 02:[address] 07/30/24 In Process Assessment 02:50 Chlordiazepoxide Hcl PHA 07/30/24 In Process Capsule (Librium Ca 03:00 * [employer] CONS 07/30/24 Transmitted Consult 03:47 * Dietary Consult CONS 07/30/24 Transmitted 03:47 Date of Service: Jul 29, 2024 Billing Provider: JESUS REYES MD Common Visit Codes: [id number] INP/OBS CARE (HIGH) SAGE WYATT RESIDENT Jul 30, 2024 04:31 JESUS REYES MD Jul 31, 2024 08:47
[2024-07-30] MEDS: MAGNESIUM SULFATE 1GM/100ML 100 ML IV ONE (05:17)
[2024-07-30] MEDS: LOSARTAN POTASSIUM 50 MG TAB PO SCH (05:18)
[2024-07-30 09:21] LABS: Basophils # (auto) 0.1 10 ^3/uL (0-0.2); Eosinophils # (auto) 0.1 10 ^3/uL (0-0.8); Eosinophils % (auto) 1.2 % (0.0-7.0); Hematocrit 38.6 % (41.0-53.0); Hemoglobin 12.4 g/dL (13.5-17.5); Lymphocytes # (auto) 2.4 10 ^3/uL (0.4-5.4); Lymphocytes % (auto) 21.7 % (10.0-50.0); Mean Corpuscular Hemoglobin 30.3 pg (28.0-32.0); Mean Corpuscular Hgb Conc. 32.1 g/dL (32.0-36.0); Mean Corpuscular Volume 94.4 fL (80.0-100.0); Monocytes # (auto) 1.1 10 ^3/uL (0-1.3); Monocytes % (auto) 10.2 % (0.0-12.0); Neutrophils # (auto) 7.4 10 ^3/uL (1.6-8.6); Neutrophils % (auto) 65.9 % (37.0-80.0); Nucleated Red Blood Cells % 0.1 %; Platelet Count (auto) 445 10^3/uL (140-450); Red Blood Cells 4.09 10^6/uL (4.5-5.90); Red Cell Distribution Width 16.8 % (11.8-14.3); White Blood Cell 11.3 10^3/uL (4.4-10.8)
[2024-07-30 09:43] LABS: Alkaline Phosphatase 54 U/L (46-116); Anion Gap 8 (5-15); Calcium 8.8 mg/dL (8.7-10.4); Carbon Dioxide 25 mmol/L (20-31); Chloride 107 mmol/L (98-107); Glucose 103 mg/dL (74-106); Magnesium 2.2 mg/dL (1.6-2.6); Sodium 140 mmol/L (136-145)
[2024-07-30 09:44] LABS: Bilirubin, Total 0.5 mg/dL (0.2-1.0); Total Protein 5.8 g/dL (5.7-8.2)
[2024-07-30 09:51] LABS: Aspartate Aminotransferase 13 U/L (13-40); Blood Urea Nitrogen 6 mg/dL (9-23); Potassium 3.4 mmol/L (3.5-5.1)
[2024-07-30 09:52] LABS: Alanine Aminotransferase < 9 U/L (7-40)
[2024-07-30] MEDS: ENOXAPARIN SOD 40 MG/0.4 ML SYRINGE SC SCH (10:35)
[2024-07-30] MEDS: CIPROFLOXACIN 400MG/200ML 200 ML IV SCH (11:33)
[2024-07-30] MEDS: POTASSIUM CHL 20 Meq TABLET PO ONE (16:32)
[2024-07-30] MEDS: chlordiazePOXIDE HCL 5 MG CAP PO PRN (21:18)
[2024-07-31] VITALS (7 sets, daily range): BP systolic 118–160; BP diastolic 64–107; PULSE 75–95; RESP 16–20; TEMP 98–98.1; O2SAT 94–100
[2024-07-31 06:07] LABS: Basophils # (auto) 0 10 ^3/uL (0-0.2); Basophils % (auto) 0.5 % (0.0-2.0); Eosinophils # (auto) 0.2 10 ^3/uL (0-0.8); Eosinophils % (auto) 2.2 % (0.0-7.0); Hematocrit 37.1 % (41.0-53.0); Hemoglobin 11.9 g/dL (13.5-17.5); Mean Corpuscular Hemoglobin 30.5 pg (28.0-32.0); Mean Corpuscular Hgb Conc. 32.2 g/dL (32.0-36.0); Mean Corpuscular Volume 94.8 fL (80.0-100.0); Monocytes # (auto) 0.7 10 ^3/uL (0-1.3); Monocytes % (auto) 7.9 % (0.0-12.0); Neutrophils # (auto) 5.7 10 ^3/uL (1.6-8.6); Neutrophils % (auto) 66.4 % (37.0-80.0); Nucleated Red Blood Cells % 0.1 %; Platelet Count (auto) 410 10^3/uL (140-450); Red Blood Cells 3.91 10^6/uL (4.5-5.90); Red Cell Distribution Width 16.8 % (11.8-14.3); White Blood Cell 8.7 10^3/uL (4.4-10.8)
[2024-07-31 06:25] LABS: Albumin 3.6 g/dL (3.2-4.8); Alkaline Phosphatase 48 U/L (46-116); Anion Gap 9 (5-15); BUN/Creatinine Ratio 10.9 (10.0-20.0); Carbon Dioxide 25 mmol/L (20-31); Chloride 107 mmol/L (98-107); Glucose 105 mg/dL (74-106); Magnesium 2.2 mg/dL (1.6-2.6); Potassium 3.8 mmol/L (3.5-5.1); Sodium 141 mmol/L (136-145)
[2024-07-31 06:26] LABS: Bilirubin, Total 0.3 mg/dL (0.2-1.0)
[2024-07-31 06:42] LABS: Alanine Aminotransferase < 9 U/L (7-40); Aspartate Aminotransferase 13 U/L (13-40); Blood Urea Nitrogen 7 mg/dL (9-23); Calcium 8.6 mg/dL (8.7-10.4); Total Protein 5.2 g/dL (5.7-8.2)
[2024-07-31] MEDS: LOSARTAN POTASSIUM 50 MG TAB PO ONE (11:22)
--- NOTE | 2024-07-31 12:18 | DVHPN2 ---
Subjective Withdrawal symptoms are better No abdominal pain Tolerating his diet Changes from previous H/P or p: Changes Eyes: No Pain, No Vision change, No Conjunctivae inflammation, No Eyelid inflammation, No Other, No Redness ENT: No Ear pain, No Ear discharge, No Nose pain, No Nose discharge, No Nose congestion, No Mouth pain, No Mouth swelling, No Throat pain, No Throat swelling, No Other Cardiovascular: No Chest Pain, No Palpitations, No Orthopnea, No Paroxysmal Noc. Dyspnea, No Edema, No Lt Headedness, No Other Respiratory: No Cough, No Dry, No Shortness of breath, No SOB with excertion, No Wheezing, No Hemoptysis, No Pleuritic Pain, No Sputum, No Other Gastrointestinal: Nausea; No Vomiting; Abdominal Pain; No Diarrhea, No Constipation, No Melena, No Hematochezia, No Other Genitourinary: No Dysuria, No Frequency, No Incontinence, No Hematuria, No Retention, No Other Musculoskeletal: No other, No neck pain, No shoulder pain, No arm pain, No back pain, No hand pain, No leg pain, No foot pain Skin: No Rash, No Lesions, No Jaundice, No Bruising, No Other Objective Vitals Vital Signs Date Time Temp Pulse Resp B/P (MAP) Pulse Ox O2 Delivery O2 Flow Rate FiO2 07/31/24 11:22 119/76 07/31/24 09:00 98.0 88 20 97 98.0 07/31/24 08:00 Room Air* 0 21 Intake/Output Intake and Output 07/31/24 07:00 Intake Total 2900 ml Output Total 1850 ml Balance 1050 ml Intake Oral 1100 ml IV Total 1800 ml Output Urine Total 1850 ml General Appearance: Alert, Oriented X3, Cooperative Lungs: Clear to auscultation, Normal air movement Abdomen: Normal bowel sounds, Soft Extremities: No edema Medications Current Medications Medications Dose Ordered Sig/Rick Route Start Time Stop Time Status Last Admin Dose Admin Ciprofloxacin 200 ml @ 200 mls/hr BID IV 07/30/24 11:00 07/31/24 11:14 200 MLS/HR Metronidazole 100 ml @ 100 mls/hr TID IV 07/29/24 23:30 07/31/24 05:03 100 MLS/HR Lorazepam 2 mg Q4H PO 07/30/24 03:00 07/31/24 11:15 2 MG Chlordiazepoxide HCl 10 mg Q4HPRN PRN PO 07/30/24 03:00 07/30/24 21:18 10 MG Acetaminophen 650 mg Q4HP PRN PO 07/30/24 04:30 Enoxaparin Sodium 40 mg DAILY SC 07/30/24 10:00 07/31/24 11:14 40 MG Losartan Potassium 50 mg DAILY PO 08/01/24 10:00 Folic Acid 1 mg/ Magnesium Sulfate 8 meq/ Multivitamins 10 ml/Thiamine HCl 100 mg/Sodium Chloride 1,013.2 ml @ 126.247 mls/hr 1800 INJ 07/31/24 18:00 Laboratory Results Laboratory Tests 07/31/24 04:36 Chemistry Test 07/31/24 04:36 Albumin 3.6 g/dL (3.2-4.8) Calcium Level 8.6 mg/dL (8.7-10.4) L Magnesium Level 2.2 mg/dL (1.6-2.6) Total Protein 5.2 g/dL (5.7-8.2) L LFT Test 07/31/24 04:36 Alanine Aminotransferase (ALT) < 9 U/L (7-40) Alkaline Phosphatase 48 U/L (46-116) Aspartate Amino Transferase (AST) 13 U/L (13-40) Total Bilirubin 0.3 mg/dL (0.2-1.0) Assessment/Plan Assessment/Plan Alcohol withdrawal Anxiety Hypertension History of peptic ulcer disease Alcohol use disorder Intractable abdominal pain Acute diverticulitis Hypokalemia Hypomagnesemia Plan Continue IV ciprofloxacin and Flagyl Librium and Ativan p.r.n. for agitation or withdrawal symptoms Losartan for hypertension Replace potassium magnesium as needed Monitor closely Full code Advance directives discussed with the patient for 20 minutes Plan discussed with: Patient My Orders Orders - BHAVIN BANERJEE MD Procedure Category Date Status Time Regular Diet DIET 07/30/24 Transmitted Dinner Date of Service: Jul 31, 2024 Billing Provider: BHAVIN BANERJEE MD Common Visit Codes: [id number] INP/OBS CARE(HIGH) Secondary Visit Codes: [id number] CARE PLAN 30 MINUTES BHAVIN BANERJEE MD Jul 31, 2024 12:18
[2024-07-31] MEDS ORDERED: FOLIC ACID 1 MG, MAGNESIUM SULF SDV 50% 8 MEQ, MULTIPLE VITAMIN 10 ML, THIAMINE INJ 100... INJ SCH (18:00)
[2024-07-31] MEDS: MULTIPLE VITAMIN TAB PO ONE (18:38)
[2024-07-31] MEDS: FOLIC ACID 1 MG TAB PO ONE (18:39)
[2024-07-31] MEDS: THIAMINE HCL 100 MG TAB PO ONE (18:39)
[2024-07-31] MEDS: MAGNESIUM OXIDE 400 MG TAB PO ONE (18:39)
[2024-08-01] VITALS (7 sets, daily range): BP systolic 112–162; BP diastolic 63–92; PULSE 83–90; RESP 16–20; TEMP 97.7–98.6; O2SAT 95–100
[2024-08-01] MEDS: PANTOPRAZOLE 40 MG TAB PO ONE (01:58)
[2024-08-01] MEDS: FOLIC ACID 1 MG TAB PO SCH (09:39)
[2024-08-01] MEDS: MAGNESIUM OXIDE 400 MG TAB PO SCH (09:39)
[2024-08-01] MEDS: THIAMINE HCL 100 MG TAB PO SCH (09:40)
[2024-08-01] MEDS: MULTIPLE VITAMIN TAB PO SCH (09:40)
[2024-08-01] MEDS: LOSARTAN POTASSIUM 50 MG TAB PO SCH (09:45)
[2024-08-02] VITALS (8 sets, daily range): BP systolic 119–137; BP diastolic 73–90; PULSE 77–92; RESP 16–20; TEMP 97.5–98.4; O2SAT 94–99
[2024-08-02] MEDS: PANTOPRAZOLE 40 MG TAB PO SCH (05:50)
[2024-08-02] MEDS: ACETAMINOPHEN 325 MG TAB PO PRN (14:24)
[2024-08-02] MEDS: LORazepam 0.5 MG TAB PO PRN (21:43)
--- NOTE | 2024-08-02 22:30 | DVHPN2 ---
Subjective The patient is seen and examined at bedside. Stated that he feels little bit better. The patient is not shaking today. No seizure activity. Reviewed: Care Plan, H&P, Labs, Medications, Previous Orders, Radiology Changes from previous H/P or p: No Changes Eyes: No Pain, No Vision change, No Conjunctivae inflammation, No Eyelid inflammation, No Other, No Redness ENT: No Ear pain, No Ear discharge, No Nose pain, No Nose discharge, No Nose congestion, No Mouth pain, No Mouth swelling, No Throat pain, No Throat swelling, No Other Cardiovascular: No Chest Pain, No Palpitations, No Orthopnea, No Paroxysmal Noc. Dyspnea, No Edema, No Lt Headedness, No Other Respiratory: No Cough, No Dry, No Shortness of breath, No SOB with excertion, No Wheezing, No Hemoptysis, No Pleuritic Pain, No Sputum, No Other Gastrointestinal: Nausea; No Vomiting; Abdominal Pain; No Diarrhea, No Constipation, No Melena, No Hematochezia, No Other Genitourinary: No Dysuria, No Frequency, No Incontinence, No Hematuria, No Retention, No Other Musculoskeletal: No other, No neck pain, No shoulder pain, No arm pain, No back pain, No hand pain, No leg pain, No foot pain Skin: No Rash, No Lesions, No Jaundice, No Bruising, No Other Objective Vitals Vital Signs Date Time Temp Pulse Resp B/P (MAP) Pulse Ox O2 Delivery O2 Flow Rate FiO2 08/01/24 21:00 98.4 85 20 126/77 (93) 98 98.4 08/01/24 07:30 Room Air* 0 21 Intake/Output Intake and Output 08/02/24 07:00 Intake Total 1870 ml Balance 1870 ml Intake Oral 1470 ml IV Total 400 ml # Voids 9 # Bowel Movements 2 General Appearance: Alert, Oriented X3, Cooperative Lungs: Clear to auscultation, Normal air movement Abdomen: Normal bowel sounds, Soft Extremities: No edema Medications Current Medications Medications Dose Ordered Sig/Rick Route Start Time Stop Time Status Last Admin Dose Admin Ciprofloxacin 200 ml @ 200 mls/hr BID IV 07/30/24 11:00 08/02/24 10:13 200 MLS/HR Metronidazole 100 ml @ 100 mls/hr TID IV 07/29/24 23:30 08/02/24 21:29 100 MLS/HR Chlordiazepoxide HCl 10 mg Q4HPRN PRN PO 07/30/24 03:00 08/02/24 14:18 10 MG Acetaminophen 650 mg Q4HP PRN PO 07/30/24 04:30 08/02/24 21:43 650 MG Enoxaparin Sodium 40 mg DAILY SC 07/30/24 10:00 08/01/24 09:46 40 MG Losartan Potassium 50 mg DAILY PO 08/01/24 10:00 08/02/24 10:12 50 MG Folic Acid 1 mg DAILY PO 08/01/24 10:00 08/02/24 10:10 1 MG Multivitamins 1 tab DAILY PO 08/01/24 10:00 08/02/24 10:10 1 TAB Magnesium Oxide 400 mg DAILY PO 08/01/24 10:00 08/02/24 10:11 400 MG Thiamine HCl 100 mg DAILY PO 08/01/24 10:00 08/02/24 10:11 100 MG Pantoprazole Sodium 40 mg DAILY@0600 PO 08/02/24 06:00 08/02/24 05:50 40 MG Lorazepam 2 mg Q6HP PRN PO 08/02/24 13:30 08/02/24 21:43 2 MG Laboratory Results Laboratory Tests 07/31/24 04:36 Labs and/or images reviewed: Labs reviewed by me Assessment/Plan Assessment/Plan Alcohol withdrawal Anxiety Hypertension History of peptic ulcer disease Alcohol use disorder Intractable abdominal pain Acute diverticulitis Hypokalemia Hypomagnesemia Plan Continue IV ciprofloxacin and Flagyl Librium and Ativan p.r.n. for agitation or withdrawal symptoms Losartan for hypertension Replace potassium magnesium as needed Monitor closely I will start the patient on Ativan 1 mg IV q.4 hours p.r.n. for anxiety. Full code This medical document was created using an electronic medical record system with [employer] direct computerized dictation system. Although this document has been carefully reviewed, there may still be some phonetic and typographical errors. These areas are purely typographical due to imperfections of the software programs, and do not reflect any compromise in the patient's medical care. Plan discussed with: Patient My Orders Orders - CIRO SHERIFF MD Procedure Category Date Status Time Lorazepam Tablet PHA 08/02/24 In Process (Ativan Tablet) 13:30 Date of Service: Aug 01, 2024 Billing Provider: CIRO SHERIFF MD Common Visit Codes: [id number] INP/OBS CARE(HIGH) CIRO SHERIFF MD Aug 02, 2024 22:30
--- NOTE | 2024-08-02 22:30 | DVHPN2 ---
Subjective The patient is seen and examined at bedside. Remained very weak. No shaking. No seizure. Reviewed: Care Plan, H&P, Labs, Medications, Previous Orders, Radiology Changes from previous H/P or p: No Changes Eyes: No Pain, No Vision change, No Conjunctivae inflammation, No Eyelid inflammation, No Other, No Redness ENT: No Ear pain, No Ear discharge, No Nose pain, No Nose discharge, No Nose congestion, No Mouth pain, No Mouth swelling, No Throat pain, No Throat swelling, No Other Cardiovascular: No Chest Pain, No Palpitations, No Orthopnea, No Paroxysmal Noc. Dyspnea, No Edema, No Lt Headedness, No Other Respiratory: No Cough, No Dry, No Shortness of breath, No SOB with excertion, No Wheezing, No Hemoptysis, No Pleuritic Pain, No Sputum, No Other Gastrointestinal: Nausea; No Vomiting; Abdominal Pain; No Diarrhea, No Constipation, No Melena, No Hematochezia, No Other Genitourinary: No Dysuria, No Frequency, No Incontinence, No Hematuria, No Retention, No Other Musculoskeletal: No other, No neck pain, No shoulder pain, No arm pain, No back pain, No hand pain, No leg pain, No foot pain Skin: No Rash, No Lesions, No Jaundice, No Bruising, No Other Objective Vitals Vital Signs Date Time Temp Pulse Resp B/P (MAP) Pulse Ox O2 Delivery O2 Flow Rate FiO2 08/02/24 21:00 98.4 85 20 126/77 (93) 98 98.4 08/02/24 07:30 Room Air* 0 21 Intake/Output Intake and Output 08/02/24 07:00 Intake Total 1870 ml Balance 1870 ml Intake Oral 1470 ml IV Total 400 ml # Voids 9 # Bowel Movements 2 General Appearance: Alert, Cooperative, No acute distress HEENT: Atraumatic, PERRLA, EOMI, Mucous membr. moist/pink Neck: Supple Lungs: Clear to auscultation, Normal air movement Cardiovascular: Regular rate, Normal S1, Normal S2, No murmurs, Gallops, Rubs Abdomen: Normal bowel sounds, Soft Extremities: No edema Neuro: Cranial nerves 3-12 NL Psych/Mental Status: Mental status NL Medications Current Medications Medications Dose Ordered Sig/Rick Route Start Time Stop Time Status Last Admin Dose Admin Ciprofloxacin 200 ml @ 200 mls/hr BID IV 07/30/24 11:00 08/02/24 10:13 200 MLS/HR Metronidazole 100 ml @ 100 mls/hr TID IV 07/29/24 23:30 08/02/24 21:29 100 MLS/HR Chlordiazepoxide HCl 10 mg Q4HPRN PRN PO 07/30/24 03:00 08/02/24 14:18 10 MG Acetaminophen 650 mg Q4HP PRN PO 07/30/24 04:30 08/02/24 21:43 650 MG Enoxaparin Sodium 40 mg DAILY SC 07/30/24 10:00 08/01/24 09:46 40 MG Losartan Potassium 50 mg DAILY PO 08/01/24 10:00 08/02/24 10:12 50 MG Folic Acid 1 mg DAILY PO 08/01/24 10:00 08/02/24 10:10 1 MG Multivitamins 1 tab DAILY PO 08/01/24 10:00 08/02/24 10:10 1 TAB Magnesium Oxide 400 mg DAILY PO 08/01/24 10:00 08/02/24 10:11 400 MG Thiamine HCl 100 mg DAILY PO 08/01/24 10:00 08/02/24 10:11 100 MG Pantoprazole Sodium 40 mg DAILY@0600 PO 08/02/24 06:00 08/02/24 05:50 40 MG Lorazepam 2 mg Q6HP PRN PO 08/02/24 13:30 08/02/24 21:43 2 MG Laboratory Results Laboratory Tests 07/31/24 04:36 Labs and/or images reviewed: Labs reviewed by me Assessment/Plan Assessment/Plan Alcohol withdrawal Anxiety Hypertension History of peptic ulcer disease Alcohol use disorder Intractable abdominal pain Acute diverticulitis Hypokalemia Hypomagnesemia Plan Continue IV ciprofloxacin and Flagyl Librium and Ativan p.r.n. for agitation or withdrawal symptoms Losartan for hypertension Replace potassium magnesium as needed Monitor closely Continuing Ativan as needed for anxiety Full code This medical document was created using an electronic medical record system with [employer] direct computerized dictation system. Although this document has been carefully reviewed, there may still be some phonetic and typographical errors. These areas are purely typographical due to imperfections of the software programs, and do not reflect any compromise in the patient's medical care. Plan discussed with: Patient My Orders Orders - CIRO SHERIFF MD Procedure Category Date Status Time Lorazepam Tablet PHA 08/02/24 In Process (Ativan Tablet) 13:30 Date of Service: Aug 02, 2024 Billing Provider: CIRO SHERIFF MD Common Visit Codes: [id number] INP/OBS CARE(HIGH) CIRO SHERIFF MD Aug 02, 2024 22:30
[2024-08-03] VITALS (7 sets, daily range): BP systolic 120–142; BP diastolic 74–88; PULSE 75–101; RESP 17–20; TEMP 97.7–98.7; O2SAT 96–100
[2024-08-03] MEDS ORDERED: PANT40T PO (12:13)
[2024-08-03] MEDS ORDERED: ONDANSETRON HCL 4 MG/2 ML VIAL IV ONE (12:45)
[2024-08-03] MEDS: ONDANSETRON ODT 4 MG TAB PO ONE (13:17)
[2024-08-03] MEDS: HYDROcodone-ACET 5/325MG TAB PO PRN (14:53)
--- NOTE | 2024-08-03 15:33 | DVHPN2 ---
Subjective in bed having some epigastric pain Changes from previous H/P or p: No Changes Eyes: No Pain, No Vision change, No Conjunctivae inflammation, No Eyelid inflammation, No Other, No Redness ENT: No Ear pain, No Ear discharge, No Nose pain, No Nose discharge, No Nose congestion, No Mouth pain, No Mouth swelling, No Throat pain, No Throat swelling, No Other Cardiovascular: No Chest Pain, No Palpitations, No Orthopnea, No Paroxysmal Noc. Dyspnea, No Edema, No Lt Headedness, No Other Respiratory: No Cough, No Dry, No Shortness of breath, No SOB with excertion, No Wheezing, No Hemoptysis, No Pleuritic Pain, No Sputum, No Other Gastrointestinal: Nausea; No Vomiting; Abdominal Pain; No Diarrhea, No Constipation, No Melena, No Hematochezia, No Other Genitourinary: No Dysuria, No Frequency, No Incontinence, No Hematuria, No Retention, No Other Musculoskeletal: No other, No neck pain, No shoulder pain, No arm pain, No back pain, No hand pain, No leg pain, No foot pain Skin: No Rash, No Lesions, No Jaundice, No Bruising, No Other Objective Vitals Vital Signs Date Time Temp Pulse Resp B/P (MAP) Pulse Ox O2 Delivery O2 Flow Rate FiO2 08/03/24 13:00 97.7 101 17 142/88 (106) 99 97.7 08/03/24 08:00 Room Air* 0 21 Intake/Output Intake and Output 08/03/24 07:00 Intake Total 2000 ml Output Total 400 ml Balance 1600 ml Intake Oral 1300 ml IV Total 700 ml Output Urine Total 400 ml # Voids 3 # Bowel Movements 4 General Appearance: Alert, Oriented X3, Cooperative Lungs: Clear to auscultation, Normal air movement Abdomen: Normal bowel sounds, Soft Extremities: No edema Medications Current Medications Medications Dose Ordered Sig/Rick Route Start Time Stop Time Status Last Admin Dose Admin Ciprofloxacin 200 ml @ 200 mls/hr BID IV 07/30/24 11:00 08/03/24 09:54 200 MLS/HR Metronidazole 100 ml @ 100 mls/hr TID IV 07/29/24 23:30 08/03/24 14:52 100 MLS/HR Chlordiazepoxide HCl 10 mg Q4HPRN PRN PO 07/30/24 03:00 08/02/24 14:18 10 MG Acetaminophen 650 mg Q4HP PRN PO 07/30/24 04:30 08/03/24 09:52 650 MG Enoxaparin Sodium 40 mg DAILY SC 07/30/24 10:00 08/03/24 09:53 40 MG Losartan Potassium 50 mg DAILY PO 08/01/24 10:00 08/03/24 09:55 50 MG Folic Acid 1 mg DAILY PO 08/01/24 10:00 08/03/24 09:52 1 MG Multivitamins 1 tab DAILY PO 08/01/24 10:00 08/03/24 09:52 1 TAB Magnesium Oxide 400 mg DAILY PO 08/01/24 10:00 08/03/24 09:52 400 MG Thiamine HCl 100 mg DAILY PO 08/01/24 10:00 08/03/24 09:54 100 MG Pantoprazole Sodium 40 mg DAILY@0600 PO 08/02/24 06:00 08/03/24 05:40 40 MG Lorazepam 2 mg Q6HP PRN PO 08/02/24 13:30 08/02/24 21:43 2 MG Acetaminophen/ Hydrocodone Bitart 1 tab Q6HPRN PRN PO 08/03/24 14:15 08/03/24 14:53 1 TAB Laboratory Results Laboratory Tests 07/31/24 04:36 Assessment/Plan Assessment/Plan Alcohol withdrawal PRN ativan, feeling well with minimal withdrawal symptoms Anxiety Hypertension History of peptic ulcer disease Alcohol use disorder Intractable abdominal pain Acute diverticulitis noted on CT scan, on IV cipro and flagyl, will continue to advance diet Hypokalemia Hypomagnesemia resolved Plan discussed with: Patient My Orders Orders - KAROLYN BURNETT MD Procedure Category Date Status Time Hydrocodone-Acet PHA 08/03/24 In Process 5/325mg Tab ([place] 14:15 Date of Service: Aug 03, 2024 Billing Provider: KAROLYN BURNETT MD Common Visit Codes: [id number] INP/OBS CARE(HIGH) KAROLYN BURNETT MD Aug 03, 2024 15:32
[2024-08-03 18:44] LABS: Chloride 104 mmol/L (98-107); Potassium 3.9 mmol/L (3.5-5.1); Sodium 137 mmol/L (136-145)
[2024-08-03 18:45] LABS: Anion Gap 9 (5-15); Calcium 9.3 mg/dL (8.7-10.4); Carbon Dioxide 24 mmol/L (20-31)
[2024-08-03 18:51] LABS: BUN/Creatinine Ratio 6.2 (10.0-20.0); Glucose 93 mg/dL (74-106)
[2024-08-03 18:52] LABS: Blood Urea Nitrogen 5 mg/dL (9-23)
[2024-08-04 05:00] VITALS: BP 148/90; PULSE 92; RESP 17; TEMP 97.9; O2SAT 98
[2024-08-04 07:42] LABS: Basophils # (auto) 0 10 ^3/uL (0-0.2); Basophils % (auto) 0.8 % (0.0-2.0); Eosinophils # (auto) 0.2 10 ^3/uL (0-0.8); Eosinophils % (auto) 3.8 % (0.0-7.0); Hematocrit 34.3 % (41.0-53.0); Hemoglobin 11.6 g/dL (13.5-17.5); Lymphocytes # (auto) 1.3 10 ^3/uL (0.4-5.4); Lymphocytes % (auto) 22.2 % (10.0-50.0); Mean Corpuscular Hemoglobin 31.7 pg (28.0-32.0); Mean Corpuscular Hgb Conc. 33.9 g/dL (32.0-36.0); Mean Corpuscular Volume 93.4 fL (80.0-100.0); Monocytes # (auto) 0.7 10 ^3/uL (0-1.3); Monocytes % (auto) 11.8 % (0.0-12.0); Neutrophils # (auto) 3.5 10 ^3/uL (1.6-8.6); Neutrophils % (auto) 61.4 % (37.0-80.0); Nucleated Red Blood Cells % 0.1 %; Platelet Count (auto) 375 10^3/uL (140-450); Red Blood Cells 3.67 10^6/uL (4.5-5.90); White Blood Cell 5.6 10^3/uL (4.4-10.8)
[2024-08-04 08:00] VITALS: PULSE 87; RESP 16; O2SAT 99
[2024-08-04 08:49] VITALS: BP 116/84; PULSE 87; RESP 16; TEMP 98.1; O2SAT 99
[2024-08-04] MEDS ORDERED: AUG875T PO (11:27)
[2024-08-04 11:37] VITALS: BP 107/71; PULSE 87; TEMP 98.1
--- NOTE | 2024-08-04 14:40 | DVHDS2 ---
Discharge Summary Date of Admission Jul 29, 2024 at 23:27 Date of Discharge: Aug 03, 2024 Labs/Diagnostic Data: Laboratory Results Test 08/04/24 06:18 08/03/24 18:00 07/31/24 04:36 07/29/24 22:42 White Blood Count 5.6 10^3/uL (4.4-10.8) Red Blood Count 3.67 10^6/uL (4.5-5.90) Hemoglobin 11.6 g/dL (13.5-17.5) Hematocrit 34.3 % (41.0-53.0) Mean Corpuscular Volume 93.4 fL (80.0-100.0) Mean Corpuscular Hemoglobin 31.7 pg (28.0-32.0) Mean Corpuscular Hemoglobin Concent 33.9 g/dL (32.0-36.0) Red Cell Distribution Width 17.0 % (11.8-14.3) Platelet Count 375 10^3/uL (140-450) Mean Platelet Volume 7.5 fL (6.9-10.8) Neutrophils (%) (Auto) 61.4 % (37.0-80.0) Lymphocytes (%) (Auto) 22.2 % (10.0-50.0) Monocytes (%) (Auto) 11.8 % (0.0-12.0) Eosinophils (%) (Auto) 3.8 % (0.0-7.0) Basophils (%) (Auto) 0.8 % (0.0-2.0) Neutrophils # (Auto) 3.5 10 ^3/uL (1.6-8.6) Lymphocytes # (Auto) 1.3 10 ^3/uL (0.4-5.4) Monocytes # (Auto) 0.7 10 ^3/uL (0-1.3) Eosinophils # (Auto) 0.2 10 ^3/uL (0-0.8) Basophils # (Auto) 0 10 ^3/uL (0-0.2) Nucleated Red Blood Cells 0.1 % Sodium Level 137 mmol/L (136-145) Potassium Level 3.9 mmol/L (3.5-5.1) Chloride Level 104 mmol/L (98-107) Carbon Dioxide Level 24 mmol/L (20-31) Anion Gap 9 (5-15) Blood Urea Nitrogen 5 mg/dL (9-23) Creatinine 0.81 mg/dL (0.700-1.30) Glomerular Filtration Rate Calc 105 mL/min (>90) BUN/Creatinine Ratio 6.2 (10.0-20.0) Serum Glucose 93 mg/dL (74-106) Calcium Level 9.3 mg/dL (8.7-10.4) Magnesium Level 2.2 mg/dL (1.6-2.6) Total Bilirubin 0.3 mg/dL (0.2-1.0) Aspartate Amino Transferase (AST) 13 U/L (13-40) Alanine Aminotransferase (ALT) < 9 U/L (7-40) Alkaline Phosphatase 48 U/L (46-116) Total Protein 5.2 g/dL (5.7-8.2) Albumin 3.6 g/dL (3.2-4.8) Troponin I High Sensitivity < 3 ng/L (</=54) Test 07/29/24 21:30 Lactic Acid Level 1.7 mmol/L (0.4-2.0) Lipase 27 U/L (12-53) Plasma/Serum Blood Alcohol 5.3 mg/dL (<10) Other Laboratory Tests 08/04/24 06:18 08/03/24 18:00 Brief Hx & Hospital Course: A 54-year-old male with a past medical history of anxiety, hypertension, peptic ulcer disease (PUD), and alcohol dependence presented to the ED with severe abdominal pain rated 10/10, described as constant and diffuse. The patient reported consuming 7 shots of whiskey at approximately 5 p.m. today. However, a prior chart documents consumption of 16 shots of vodka. He appeared agitated and distressed upon arrival, screaming in pain. A CT scan of the abdomen showed minimal wall thickening in the sigmoid colon and adjacent fat stranding, possibly related to underdistention versus mild diverticulitis. Given his history of alcohol use and a CIWA- score >10, the patient was admitted for alcohol withdrawal (alcohol levels on blood less than 10) management and further evaluation of his abdominal pain. alcohol withdrawal improved and also diverticulitis improved was discharged on oral abx Condition at Discharge: Good Final Diagnosis/Problems List alcohol withdrawal acute diverticulitis Hypomagnesemia hypertensive urgency sepsis due to diverticulitis Discharge Disposition: Home Discharge Instruct/Medications Diet: Regular Activity: No Restrictions, As Tolerated Follow Up/Referral: follow up PCP in 7 weeks Medications: pantoprazole augmentin Discharge Statement: "Patient was advised to return to the ER or call 911 if any headaches, dizziness, shortness of breath, chest pain, abdominal pain, bleeding, fevers, or worsening of medical condition. Patient was counseled about treatment plan, medications, possible side effects, patientverbalized understanding. All questions were answered to the best of my ability. This discharge took greater then 30 minutes in planning, reviewing documentation, counseling the patient, and discussing with other team members." ASSESSMENT ASSESSMENT Assessment alcohol withdrawal acute diverticulitis Date of Service: Aug 04, 2024 Billing Provider: KAROLYN BURNETT MD Common Visit Codes: 11563-PBI/OBS DISCH DAY >30min KAROLYN BURNETT MD Aug 04, 2024 14:40
== END 2024-08-04 12:36 | disposition home or self-care (01) | DRG 720 ==
LOC: ER 21:10 → EDBD 21:10 → OVERFLOW 23:27 → WEST WING 07-30 05:40
PROVIDERS: ADMIT Hospitalist; ATTEND Hospitalist
DX: A41.9 Sepsis, unspecified organism (principal); E83.42 Hypomagnesemia; K57.32 Diverticulitis of large intestine without perforation or abscess without bleeding; F17.210 Nicotine dependence, cigarettes, uncomplicated; F10.239 Alcohol dependence with withdrawal, unspecified; I16.0 Hypertensive urgency; F41.9 Anxiety disorder, unspecified; E87.6 Hypokalemia; I10 Essential (primary) hypertension; Z87.11 Personal history of peptic ulcer disease
CPT/HCPCS: 36415; 74176; 80048; 80053; 80320; 83605; 83690; 83735; 84484; 85025; 99291; G0378; J3490; Q0162

== ENCOUNTER 2024-08-09 03:12 | Inpatient (IN) | payer MEDICAID ==
[~2024-08-09] VITALS: Ht 175.3 cm; Wt 63.8 kg
[~2024-08-09 03:12] MED LIST changes: -ALEN70TA74 PO; -ALUMCHW6 PO; -ASPI-543 PO; +AUG875T PO; -CHL25C GT; -CYAN1TAB14 PO; -DIPH-753 PO; -DOCU-94 PO; -FAMO20TA10 PO; -FOLI400T15 PO; -METR-344 PO; -OMEP20TA PO; -ONDA-180 PO; +PANT40T PO; -PANT40TA2 PO; -POLY335015 PO; -PROC10TA6 PO; -SUCR1SUS26 PO; -SUCR1TAB31 OR; -THIA100T26 PO
[2024-08-09] MEDS: IOHEXOL 300 MG/ML 100ML BOTTLE IJ ONE (03:54)
--- NOTE | 2024-08-09 04:08 | ED.PDOC ---
GI ASSESSMENT HPI Comments 54 year old male came to ER due to abdominal pain. Patient recently discharged here last August 04 and was diagnosed with 1. alcohol withdrawal. 2. acute diverticulitis, 3. Hypomagnesemia, 4. hypertensive urgency, 5. sepsis due to diverticulitis. Patient seen here multiple times for alcohol intoxication and abdominal pain. Patient admits that he has been drinking alcohol again, followed by bouts of nausea and vomiting and cramping lower abdominal pain Chief Complaint: Abdominal Pain Time Seen by MD: 04:07 Primary Care Provider: "SOMEONE HERE AT THE HOSPITAL" Reviewed Notes: Nurses Notes Allergies: Coded Allergies: NO KNOWN ALLERGIES (Unverified , 04/16/20) Home Meds No Active Prescriptions or Reported Meds Information Source: Patient Mode of Arrival: Ambulatory Timing: Hours Duration: Intermittent Quality: Cramping Review of Systems REVIEW OF SYSTEMS: No fever, no chills, or fatigue HEENT: No sore throat, no earache, no congestion, no neck pain. Cardiac: No chest pain. No palpitations. Lungs: No shortness of breath, no cough. GI: No nausea, no vomiting, no diarrhea, no constipation, (+) abdominal pain : No dysuria, frequency, or urgency. No hematuria. Musculoskeletal: No joint pain , no joint swelling, no extremity edema. Skin: No rash, no itching. Neuro: No headache, no dizziness, no weakness Vital Signs Vital Signs Date Time Temp Pulse Resp B/P (MAP) Pulse Ox O2 Delivery O2 Flow Rate FiO2 08/09/24 09:30 72 11 109/60 (76) 98 08/09/24 05:20 Room Air* 0 21 08/09/24 05:11 97.8 97.8 Physical Exam General: Patient appears to be in severe pain, he appears anxious, writhing about Skin: Skin in warm, dry and intact. Appropriate color for ethnicity. Nailbeds pink with no cyanosis. HEENT: The head is normocephalic and atraumatic. Conjunctivae are clear without exudates or hemorrhage. Sclera is non-icteric. EOM are intact. No signs of nys tagmus. Eyelids are normal in appearance without swelling or lesions. Oral mucosa is pink and moist Neck: The neck is supple with normal range of motion. No JVD. Cardiac: Heart rate and rhythm are normal. No murmurs, gallops, or rubs are auscultated. Respiratory: No signs of respiratory distress. Lung sounds are clear in all lobes bilaterally without rales, ronchi, or wheezes. Abdominal: Generalized abdominal pain. Bowel sounds are present and normoactive in all four quadrants. Extremities: Upper and lower extremities are atraumatic in appearance without deformity or edema. Neurological: The patient is awake, alert and oriented to person, place, and time with normal speech. Speech is clear. There is no facial asymmetry. Past Medical History PAST MEDICAL HISTORY: Anemia, Anxiety, Depression, HTN, PUD Surgical History: Denies all surgeries Family History Family History: Reviewed,noncontributory to illness Social History Smoker: Cigarettes Alcohol: Heavy Drugs: Denies Drug Use Lives In: Home Was a procedure done? Was a procedure done?: No GI differential Dx Differential Diagnosis: Diverticular disease, Gastritis/PUD, Gastroenteritis, Hernia, UTI, Urolithiasis, Electrolyte Imbalance, Food Poisoning, Other (Alcohol intoxication) X-Ray, Labs, Meds, VS Vital Signs Date Time Temp Pulse Resp B/P (MAP) Pulse Ox O2 Delivery O2 Flow Rate FiO2 08/09/24 09:30 72 11 109/60 (76) 98 08/09/24 08:30 84 21 125/89 (101) 94 08/09/24 06:30 88 16 135/57 (83) 97 08/09/24 05:30 86 20 134/86 (102) 94 08/09/24 05:20 Room Air* 0 21 08/09/24 05:11 97.8 97 11 144/93 (110) 97 97.8 08/09/24 03:33 98.6 132 24 135/89 (104) 98 Lab Test 08/09/24 09:35 08/09/24 06:23 08/09/24 03:58 Range/Units Urine Color Light-yellow Yellow Urine Clarity Clear Clear Urine pH 5.5 5.0-9.0 Urine Specific [place] > 1.050 H 1.001-1.035 Urine Protein Trace H Negative Urine Ketones Negative Negative Urine Blood Negative Negative /uL Urine Nitrite Negative Negative Urine Bilirubin Negative Negative Urine Urobilinogen Normal Negative mg/dL Urine Leukocyte Esterase Negative Negative /uL Urine RBC None seen 0 - 3 /hpf Urine Microscopic WBC < 1 0-3 /HPF Urine Squamous Epithelial Cells None seen <5 /hpf Urine Bacteria None seen None Seen /hpf Urine Glucose Normal Normal mg/dL Urine Opiates Screen Neg NEGATIVE Urine Fentanyl Screen Neg NEGATIVE Urine Barbiturates Screen Neg NEGATIVE Urine Phencyclidine Screen Neg NEGATIVE Urine Amphetamines Screen Neg NEGATIVE Urine Benzodiazepines Screen Pos NEGATIVE Urine Cocaine Screen Neg NEGATIVE Urine Cannabinoids Screen Neg NEGATIVE Lactic Acid Level 1.8 4.1 *H 0.4-2.0 mmol/L White Blood Count 7.7 # 4.4-10.8 10^3/uL Red Blood Count 3.67 L 4.5-5.90 10^6/uL Hemoglobin 11.3 L 13.5-17.5 g/dL Hematocrit 34.1 L 41.0-53.0 % Mean Corpuscular Volume 92.9 80.0-100.0 fL Mean Corpuscular Hemoglobin 30.7 28.0-32.0 pg Mean Corpuscular Hemoglobin Concent 33.1 32.0-36.0 g/dL Red Cell Distribution Width 16.8 H 11.8-14.3 % Platelet Count 527 H 140-450 10^3/uL Mean Platelet Volume 7.2 6.9-10.8 fL Neutrophils (%) (Auto) 50.5 37.0-80.0 % Lymphocytes (%) (Auto) 38.4 10.0-50.0 % Monocytes (%) (Auto) 9.0 0.0-12.0 % Eosinophils (%) (Auto) 1.4 0.0-7.0 % Basophils (%) (Auto) 0.7 0.0-2.0 % Neutrophils # (Auto) 3.9 1.6-8.6 10 ^3/uL Lymphocytes # (Auto) 3.0 0.4-5.4 10 ^3/uL Monocytes # (Auto) 0.7 0-1.3 10 ^3/uL Eosinophils # (Auto) 0.1 0-0.8 10 ^3/uL Basophils # (Auto) 0.1 0-0.2 10 ^3/uL Nucleated Red Blood Cells 0.2 % Sodium Level 140 136-145 mmol/L Potassium Level 4.1 3.5-5.1 mmol/L Chloride Level 108 H 98-107 mmol/L Carbon Dioxide Level 22 20-31 mmol/L Anion Gap 10 5-15 Blood Urea Nitrogen 13 9-23 mg/dL Creatinine 1.48 H 0.700-1.30 mg/dL Glomerular Filtration Rate Calc 56 >90 mL/min BUN/Creatinine Ratio 8.8 L 10.0-20.0 Serum Glucose 132 H 74-106 mg/dL Calcium Level 9.9 8.7-10.4 mg/dL Total Bilirubin 0.2 0.2-1.0 mg/dL Aspartate Amino Transferase (AST) 18 13-40 U/L Alanine Aminotransferase (ALT) 13 7-40 U/L Alkaline Phosphatase 55 46-116 U/L Total Protein 7.2 5.7-8.2 g/dL Albumin 4.7 3.2-4.8 g/dL Plasma/Serum Blood Alcohol < 3.0 <10 mg/dL Time of 1ST Reevaluation: 04:03 Reevaluation 1ST: Unchanged Patient Education/Counseling: Diagnosis, Treatment Family Education/Counseling: No Family Present Departure 1 Departure Time of Disposition: 06:00 Impression: Primary Impression: Abdominal pain Additional Impression: Lactic acidemia Disposition: ADMITTED INPATIENT Condition: Stable e-Prescriptions No Active Prescriptions or Reported Meds Critical Care Note Critical Care Time?: No Stability Stability form required: No Heart Score Heart Score: Heart Score Response (Comments) Value History N/A 0 EKG N/A 0 Age N/A 0 Risk Factors N/A 0 Troponin N/A 0 Total 0 I personally scribed for TOMMY HOWELL MD ([email or web address]) on 08/09/24 at 04:08. Electronically submitted by Brad Richards ([email or web address]). TOMMY HOWELL MD Aug 09, 2024 04:08
[2024-08-09 04:20] LABS: Basophils # (auto) 0.1 10 ^3/uL (0-0.2); Basophils % (auto) 0.7 % (0.0-2.0); Eosinophils # (auto) 0.1 10 ^3/uL (0-0.8); Eosinophils % (auto) 1.4 % (0.0-7.0); Hematocrit 34.1 % (41.0-53.0); Hemoglobin 11.3 g/dL (13.5-17.5); Lymphocytes % (auto) 38.4 % (10.0-50.0); Mean Corpuscular Hemoglobin 30.7 pg (28.0-32.0); Mean Corpuscular Hgb Conc. 33.1 g/dL (32.0-36.0); Mean Corpuscular Volume 92.9 fL (80.0-100.0); Monocytes # (auto) 0.7 10 ^3/uL (0-1.3); Neutrophils # (auto) 3.9 10 ^3/uL (1.6-8.6); Neutrophils % (auto) 50.5 % (37.0-80.0); Nucleated Red Blood Cells % 0.2 %; Platelet Count (auto) 527 10^3/uL (140-450); Red Blood Cells 3.67 10^6/uL (4.5-5.90); Red Cell Distribution Width 16.8 % (11.8-14.3); White Blood Cell 7.7 10^3/uL (4.4-10.8)
[2024-08-09 04:31] LABS: Alanine Aminotransferase 13 U/L (7-40); Albumin 4.7 g/dL (3.2-4.8); Alkaline Phosphatase 55 U/L (46-116); Anion Gap 10 (5-15); Aspartate Aminotransferase 18 U/L (13-40); BUN/Creatinine Ratio 8.8 (10.0-20.0); Blood Urea Nitrogen 13 mg/dL (9-23); Calcium 9.9 mg/dL (8.7-10.4); Carbon Dioxide 22 mmol/L (20-31); Potassium 4.1 mmol/L (3.5-5.1); Sodium 140 mmol/L (136-145); Total Protein 7.2 g/dL (5.7-8.2)
[2024-08-09 04:32] LABS: Bilirubin, Total 0.2 mg/dL (0.2-1.0); Blood Alcohol < 3.0 mg/dL (<10); Chloride 108 mmol/L (98-107); Glucose 132 mg/dL (74-106)
[2024-08-09 04:47] LABS: Lactic Acid w/Reflex 4.1 mmol/L (0.4-2.0)
[2024-08-09] MEDS: PANTOPRAZOLE 40 MG/10 ML VIAL INJ IV ONE (05:09)
[2024-08-09] MEDS: KETOROLAC TROMETH 30 MG/ML 1ML VIAL IV ONE (05:09)
[2024-08-09] MEDS: ACETAMINOPHEN IV 1000 MG/100ML (10MG/ML) IV ONE (05:10)
--- NOTE | 2024-08-09 05:15 | DVH ---
CHEST RADIOGRAPH Indication: Suspected sepsis Technique: Single frontal view of the chest was obtained Comparison: XY CHEST XRAY 1 VIEW on DOS: 07/24/24, XY CHEST PORTABLE on DOS: 06/04/24, XY CHEST PORTABLE on DOS: 03/12/24 IMPRESSION: Heart appears normal in size. The lungs appear clear without focal airspace opacity, effusion, or pn eumothorax
[2024-08-09] MEDS: SODIUM CHLORIDE 0.9% 1,000 ML IV ONE ×2 (05:25→06:29)
[2024-08-09] MEDS: PIPERACILLIN-TAZO 4.5GM 100 ML IV ONE (05:25)
--- NOTE | 2024-08-09 05:27 | DVH ---
Exam: CT CT AB PEL WITH IV CON ONLY History: lower abdominal pain, hx of diverticulitis Comparison Study: 07/09/24 Contrast: 100 cc Omnipaque 300 intravenous contrast TECHNIQUE: A digital roping tender image was obtained. During the uneventful, intravenous administration of c ontrast material, multislice data acquisition was obtained through the abdomen and pelvis. The data s et was subsequently reconstructed into axial images. Images were reviewed on a work station using a c ombination of axial and multiplanar using a variety of window levels and settings. All CT scans at this medical facility are performed using dose modulation techniques as appropriate t o a performed exam including the following: Automated exposure control was utilized; adjustment of th e MA and/or KV according to patient size; and use of iterative reconstruction technique. Radiation Dose Information: CT Dose: CTDI volume is 5.8 mGy. Dose-length product is 334.3 mGy*cm FINDINGS: Imaged portions of the lung bases appear unremarkable. There is diffuse hepatic steatosis. 6 mm hypodensity in the right hepatic lobe, likely cysts, stable spleen, pancreas, gallbladder and adrenal glands appear unremarkable. Kidneys enhance symmetrically. No evidence of small-bowel obstruction. Appendix appears normal. Moderate intracolonic stool no free fluid, free air, or adenopathy. No suspicious osseous lesion. IMPRESSION: 1. No acute abnormality in the abdomen or pelvis. 2. Hepatic steatosis HS:Y
[2024-08-09] MEDS: VANCOMYCIN 1GM/250ML KIT 250 ML IV ONE (06:22)
[2024-08-09 09:44] LABS: Urine Bacteria None Seen /hpf (None Seen)
[2024-08-09 09:54] LABS: Urine Blood Negative /uL (Negative); Urine Clarity Clear (Clear); Urine Color Light-Yellow (Yellow); Urine Protein, UAD TRACE (Negative); Urine Squamous Epithelial Cell None Seen /hpf (<5); Urine Urobilinogen Normal (Negative); Urine WBC < 1 /HPF (0-3); Urine pH 5.5 (5.0-9.0)
[2024-08-09] MEDS ORDERED: MORPHINE SULFATE INJ 2 MG/ml SYRG IV PRN (10:00)
[2024-08-09] MEDS ORDERED: ONDANSETRON HCL 4 MG/2 ML VIAL IV PRN (10:00)
[2024-08-09 10:01] LABS: Urine Specific Gravity > 1.050 (1.001-1.035)
--- NOTE | 2024-08-09 10:01 | DVHHP2 ---
History of Present Illness Reason for Visit: Abdominal pain History of Present Illness This 54-year-old male with past medical history of hypertension, anxiety, depression, diverticulitis, alcohol abuse, and tobacco use presents in the ED with a chief complaint of abdominal pain. The patient states abdominal pain for the past two weeks. The patient was recently admitted at this hospital for alcohol withdrawal, acute diverticulitis, sepsis, and hypertensive urgency, he was discharged and was asked to follow-up with his primary doctor. The patient states generalized abdominal pain continued even after discharge for which prompted him to come back to the emergency department. The patient denies chest pain, shortness of breath, hematemesis, diarrhea, or melena. Past Medical History As stated in HPI Past Surgical History Denies Family History Reviewed, non-contributory to the management of this case. Past Social History The patient lives at home, denies smoking, alcohol or illicit drugs abuse. Review of Systems Constitutional: Yes: Weakness, Malaise; No: Fever, Chills, Sweats, Other Eyes: No: Pain, Vision change, Conjunctivae inflammation, Eyelid inflammation, Other, Redness ENT: No: Ear pain, Ear discharge, Nose pain, Nose discharge, Nose congestion, Mouth pain, Mouth swelling, Throat pain, Throat swelling, Other Respiratory: No: Cough, Dry, Shortness of breath, SOB with excertion, Wheezing, Hemoptysis, Pleuritic Pain, Sputum, Wheezing, Other Cardiovascular: No: Chest Pain, Palpitations, Orthopnea, Paroxysmal Noc. Dyspnea, Edema, Lt Headedness, Other Gastrointestinal: Nausea, Abdominal Pain; No: Vomiting, Diarrhea, Constipation, Melena, Hematochezia, Other Genitourinary: No Dysuria, No Frequency, No Incontinence, No Hematuria, No Retention, No Other Musculoskeletal: No: other, neck pain, shoulder pain, arm pain, back pain, hand pain, leg pain, foot pain Skin: No: Rash, Lesions, Jaundice, Bruising, Other Neurological: No: Weakness, Numbness, Incoordination, Change in speech, Confusion, Seizures, Other Allergies: Coded Allergies: NO KNOWN ALLERGIES (Unverified , 04/16/20) Exam Vital Signs Vital Signs Date Time Temp Pulse Resp B/P (MAP) Pulse Ox O2 Delivery O2 Flow Rate FiO2 08/09/24 09:30 72 11 109/60 (76) 98 08/09/24 05:20 Room Air* 0 21 08/09/24 05:11 97.8 97.8 General Appearance: Alert, Oriented X3, Cooperative, mild distress HEENT: Atraumatic, PERRLA, EOMI, Mucous membr. moist/pink Respiratory: Clear to auscultation, Normal air movement Cardiovascular: Regular rate, Normal S1, Normal S2, No murmurs Abdominal: Normal bowel sounds, Soft, No tenderness Extremities: No clubbing, No cyanosis, No edema, Normal pulses Skin: No rashes, No breakdown, No significant lesion Neuro: Normal gait, Normal speech, Normal tone Psych/Mental Status: Mental status NL Labs/Xrays Labs Test 08/09/24 09:35 08/09/24 06:23 08/09/24 03:58 Range/Units Lactic Acid Level 1.8 0.4-2.0 mmol/L White Blood Count 7.7 # 4.4-10.8 10^3/uL Red Blood Count 3.67 L 4.5-5.90 10^6/uL Hemoglobin 11.3 L 13.5-17.5 g/dL Hematocrit 34.1 L 41.0-53.0 % Mean Corpuscular Volume 92.9 80.0-100.0 fL Mean Corpuscular Hemoglobin 30.7 28.0-32.0 pg Mean Corpuscular Hemoglobin Concent 33.1 32.0-36.0 g/dL Red Cell Distribution Width 16.8 H 11.8-14.3 % Platelet Count 527 H 140-450 10^3/uL Mean Platelet Volume 7.2 6.9-10.8 fL Neutrophils (%) (Auto) 50.5 37.0-80.0 % Lymphocytes (%) (Auto) 38.4 10.0-50.0 % Monocytes (%) (Auto) 9.0 0.0-12.0 % Eosinophils (%) (Auto) 1.4 0.0-7.0 % Basophils (%) (Auto) 0.7 0.0-2.0 % Neutrophils # (Auto) 3.9 1.6-8.6 10 ^3/uL Lymphocytes # (Auto) 3.0 0.4-5.4 10 ^3/uL Monocytes # (Auto) 0.7 0-1.3 10 ^3/uL Eosinophils # (Auto) 0.1 0-0.8 10 ^3/uL Basophils # (Auto) 0.1 0-0.2 10 ^3/uL Nucleated Red Blood Cells 0.2 % Sodium Level 140 136-145 mmol/L Potassium Level 4.1 3.5-5.1 mmol/L Chloride Level 108 H 98-107 mmol/L Carbon Dioxide Level 22 20-31 mmol/L Anion Gap 10 5-15 Blood Urea Nitrogen 13 9-23 mg/dL Creatinine 1.48 H 0.700-1.30 mg/dL Glomerular Filtration Rate Calc 56 >90 mL/min BUN/Creatinine Ratio 8.8 L 10.0-20.0 Serum Glucose 132 H 74-106 mg/dL Calcium Level 9.9 8.7-10.4 mg/dL Total Bilirubin 0.2 0.2-1.0 mg/dL Aspartate Amino Transferase (AST) 18 13-40 U/L Alanine Aminotransferase (ALT) 13 7-40 U/L Alkaline Phosphatase 55 46-116 U/L Total Protein 7.2 5.7-8.2 g/dL Albumin 4.7 3.2-4.8 g/dL Plasma/Serum Blood Alcohol < 3.0 <10 mg/dL PROCEDURE(s): ABPLIV - CT AB PEL WITH IV CON ONLY REASON: lower abdominal pain, hx of diverticulitis ORDER NUMBER(s): [id number], ACCESSION NUMBER(s): [id number] Exam: CT CT AB PEL WITH IV CON ONLY History: lower abdominal pain, hx of diverticulitis Comparison Study: 07/09/24 Contrast: 100 cc Omnipaque 300 intravenous contrast TECHNIQUE: A digital barbering instructor image was obtained. During the uneventful, intravenous administration of contrast material, multislice data acquisition was obtained through the abdomen and pelvis. The data set was subsequently reconstructed into axial images. Images were reviewed on a work station using a combination of axial and multiplanar using a variety of window levels and settings. All CT scans at this medical facility are performed using dose modulation techniques as appropriate to a performed exam including the following: Automated exposure control was utilized; adjustment of the MA and/or KV according to patient size; and use of iterative reconstruction technique. Radiation Dose Information: CT Dose: CTDI volume is 5.8 mGy. Dose-length product is 334.3 mGy*cm FINDINGS: Imaged portions of the lung bases appear unremarkable. There is diffuse hepatic steatosis. 6 mm hypodensity in the right hepatic lobe, likely cysts, stable spleen, pancreas, gallbladder and adrenal glands appear unremarkable. Kidneys enhance symmetrically. No evidence of small-bowel obstruction. Appendix appears normal. Moderate intracolonic stool no free fluid, free air, or adenopathy. No suspicious osseous lesion. IMPRESSION: 1. No acute abnormality in the abdomen or pelvis. 2. Hepatic steatosis Assessment/Plan Assessment/Plan # acute abdominal pain, GERD vs gastritis given history of alcohol abuse # hx of diverticulitis Admit to medical unit PPI Monitor Antiemetics IV fluid # lactic acidosis IV fluid Monitor JANUARY on CKD IV fluid Monitor kidney function # tobacco use Smoking cessation counseled Nicotine patch Medical plan discussed with patient and RN Plan discussed with: Patient My Orders Orders - NICK NAPIER Procedure Category Date Status Time Admit ADMIT 08/09/24 Verified 09:58 Code Status CODE 08/09/24 Verified 09:58 Hydrocodone-Acet PHA 08/09/24 Verified 5/325mg Tab ([place] 10:00 Ondansetron Hcl PHA 08/09/24 Verified (Zofran) 10:00 Complete Blood Count LAB 08/10/24 Verified 04:00 Comprehensive LAB 08/10/24 Verified Metabolic Panel 04:00 Cardiac DIET 08/09/24 Verified Diet-2gna,Lofat,Lochol Lunch Condition: Fair RD 08/09/24 Verified 09:58 Acetaminophen Tablet PHA 08/09/24 Verified (Tylenol Tablet) 10:00 Morphine Sulfate PHA 08/09/24 Verified Injection 10:00 Pantoprazole PHA 08/09/24 Verified (Protonix) 10:00 Date of Service: Aug 09, 2024 Billing Provider: NICK NAPIER Common Visit Codes: [id number] INP/OBS CARE (HIGH) NICK NAPIER Aug 09, 2024 10:01
[2024-08-09 10:06] LABS: Benzodiazephine Screen, Urine Pos (NEGATIVE)
[2024-08-09 10:08] LABS: Amphetamine Screen, Urine Neg (NEGATIVE); Barbiturate Scree,Urine Neg (NEGATIVE); Cannabinoid Screen, Urine Neg (NEGATIVE); Cocaine Screen, Urine Neg (NEGATIVE); Opiate Scree,Urine Neg (NEGATIVE); Phencyclidine Screen, Urine Neg (NEGATIVE)
[2024-08-09] MEDS: PANTOPRAZOLE 40 MG/10 ML VIAL INJ IV SCH (10:59)
[2024-08-09 11:13] VITALS: PULSE 72; RESP 14; O2SAT 96
[2024-08-09] MEDS: HYDROcodone-ACET 5/325MG TAB PO PRN (12:41)
[2024-08-09 13:01] VITALS: BP 164/85; PULSE 76; RESP 17; TEMP 98.2; O2SAT 100
[2024-08-09 13:08] VITALS: BP 164/85; PULSE 78; TEMP 98.2; O2SAT 100
[2024-08-09] MEDS: hydrALAZINE HCL 20 MG/ML VL IV PRN (16:38)
[2024-08-09 17:10] VITALS: BP 156/93; PULSE 89; RESP 17; TEMP 98.6; O2SAT 100
[2024-08-09 20:00] VITALS: RESP 16
[2024-08-09 21:00] VITALS: BP 142/82; PULSE 90; RESP 17; TEMP 98.3; O2SAT 96
[2024-08-09] MEDS: ACETAMINOPHEN 325 MG TAB PO PRN (23:00)
[2024-08-10] VITALS (7 sets, daily range): BP systolic 122–173; BP diastolic 78–90; PULSE 79–103; RESP 17–20; TEMP 97.3–98.4; O2SAT 96–100
[2024-08-10 07:44] LABS: Basophils # (auto) 0 10 ^3/uL (0-0.2); Basophils % (auto) 0.5 % (0.0-2.0); Eosinophils # (auto) 0.1 10 ^3/uL (0-0.8); Eosinophils % (auto) 1.7 % (0.0-7.0); Hemoglobin 9.3 g/dL (13.5-17.5); Lymphocytes # (auto) 2.3 10 ^3/uL (0.4-5.4); Lymphocytes % (auto) 35.5 % (10.0-50.0); Mean Corpuscular Hemoglobin 30.8 pg (28.0-32.0); Mean Corpuscular Hgb Conc. 33.3 g/dL (32.0-36.0); Mean Corpuscular Volume 92.3 fL (80.0-100.0); Monocytes # (auto) 0.4 10 ^3/uL (0-1.3); Monocytes % (auto) 6.6 % (0.0-12.0); Neutrophils # (auto) 3.7 10 ^3/uL (1.6-8.6); Neutrophils % (auto) 55.7 % (37.0-80.0); Nucleated Red Blood Cells % 0.1 %; Platelet Count (auto) 410 10^3/uL (140-450); Red Blood Cells 3.03 10^6/uL (4.5-5.90); Red Cell Distribution Width 16.9 % (11.8-14.3); White Blood Cell 6.6 10^3/uL (4.4-10.8)
[2024-08-10 07:57] LABS: Albumin 3.8 g/dL (3.2-4.8); Anion Gap 5 (5-15); Aspartate Aminotransferase 16 U/L (13-40); BUN/Creatinine Ratio 11.1 (10.0-20.0); Calcium 8.8 mg/dL (8.7-10.4); Carbon Dioxide 26 mmol/L (20-31); Glucose 98 mg/dL (74-106); Potassium 3.7 mmol/L (3.5-5.1); Sodium 140 mmol/L (136-145); Total Protein 5.7 g/dL (5.7-8.2)
[2024-08-10 08:13] LABS: Alkaline Phosphatase 42 U/L (46-116); Blood Urea Nitrogen 7 mg/dL (9-23); Chloride 109 mmol/L (98-107)
[2024-08-10 08:14] LABS: Alanine Aminotransferase < 9 U/L (7-40); Bilirubin, Total 0.2 mg/dL (0.2-1.0)
[2024-08-10] MEDS: NICOTINE 7MG/24HR TOPICAL PATCH TD SCH (10:00)
[2024-08-10] MEDS ORDERED: MAALOX PLUS or MAALOX 30 ML PO PRN (11:30)
[2024-08-10] MEDS: SUCRALFATE 1 GM/10 ML ORAL SUSP PO ONE (12:07)
[2024-08-10] MEDS: SODIUM CHLORIDE 0.9% 500 ML IV ONE (12:08)
--- NOTE | 2024-08-10 17:03 | DVHPNRES ---
Progress Note Date Seen: Aug 10, 2024 Resident Creating Document: TIFFANY MCNULTYIVIS RESIDENT Medical Necessity Reason Pt with a Central, PICC or Fol: No Subjective Review of Systems Patient is a 54-year-old female with a past medical history of hypertension, anxiety, alcohol abuse and tobacco use presents to the ED with a chief complaint of worsening abdominal pain for the last 2 weeks. Patient was recently admitted to the hospital for for similar abdominal pain during that admission abdominal CT was done which showed concentric wall thickening of the sigmoid colon with adjacent fat stranding and treated for diverticulitis and alcohol withdrawal and was discharged in stable condition asked to follow up with the primary doctor. Patient reported that his abdominal pain did not improve after being discharged and yesterday it became unbearable following which she came to the hospital for further evaluation. Patient reports that the abdominal pain when he came in was 10/10 on intensity, worsens on eating food, crampy and radiates across the abdomen in a bandlike pattern. Patient reports constipation on and off but denies blood in stool or blood in vomiting. Patient denied dysuria, flank pain, CVA tenderness. Patient does have acid reflux and about 4 years ago had upper endoscopy done in [place] where he was told about the ulcers and was put on medication which he is not taking currently. Patient denied chest pain, shortness of breath, hematemesis, diarrhea, melena. Past medical history: hypertension, anxiety, alcohol abuse and tobacco use Surgical history: None Social history: Patient drinks about 4-5 shots of vodka every day and smokes cigars quarter cigar every day and cigarettes. Home medications: Denies taking any medication Review of systems Patient reported improvement in the abdominal pain currently reports 4/10 in intensity Abdominal pain worsens with food, relieved with Carafate Denies blood in stool Objective vital signs Vital Sign Date Time Temp Pulse Resp B/P (MAP) Pulse Ox O2 Delivery O2 Flow Rate FiO2 08/10/24 14:00 98.0 84 18 149/83 (105) 98.0 08/10/24 13:00 97 08/10/24 08:00 Room Air* 0 21 Total Intake and Output 08/09/24 08/09/24 08/10/24 15:00 23:00 07:00 Intake Total 1000 ml 240 ml Output Total 300 ml Balance -300 ml 1000 ml 240 ml medications Current Medications Medications Dose Ordered Sig/Rick Route Start Time Stop Time Status Last Admin Dose Admin Acetaminophen/ Hydrocodone Bitart 1 tab Q4HP PRN PO 08/09/24 10:00 08/10/24 08:42 1 TAB Ondansetron HCl 4 mg Q4HP PRN IV 08/09/24 10:00 Acetaminophen 650 mg Q6HP PRN PO 08/09/24 10:00 08/09/24 23:00 650 MG Nicotine 1 patch DAILY TD 08/10/24 10:00 Sucralfate 1 gm BID@0600,2200 PO 08/10/24 22:00 Pantoprazole Sodium 40 mg BID@0600,1700 PO 08/10/24 17:00 Al Hydrox/Mg Hydrox/Simethicone 30 ml Q8HP PRN PO 08/10/24 11:30 Examination Constitutional: Patient was alert and oriented to time, place and person appears to be in mild distress because of the abdominal pain Gen - no pallor, no icterus, no cyanosis, no clubbing, no LAD, no edema . Skin - Patients skin is warm and dry.. HEENT - normocephalic, atraumatic, dry mucous membranes, poor dental hygiene Neck - full ROM, no LAD, no JVD Pulmonary - B/L equal air entry. no crackles , no wheezing, no stridor. cardiovascular - normal S1,S2 heard. no murmurs heard. peripheral pulses normal radial 2+, pedal 2+. capillary refill normal <2 secs. GI - soft abdomen with diffuse pressure patient to palpation . no hepatospleenomegaly. Bowel sounds normoactive Neurological - Bilateral upper extremity strength 5/5, bilateral lower extremity strength 5/5, no facial droop, normal speech, no tremor, no sensory deficiets. laboratory and microbiology Laboratory Tests 08/10/24 06:31 Test 08/10/24 06:31 Range/Units Serum Glucose 98 74-106 mg/dL Microbiology Date/Time Source Procedure Growth Status 08/09/24 06:23 Blood Blood Culture - Preliminary NO GROWTH AFTER 24 HOURS OF INCUBATION. Resulted Problem List/Assessment/Plan Problem List/Assessment/Plan # acute abdominal pain # dyspepsia # suspected acute gastritis # ? Peptic ulcer disease - stool occult blood negative - Protonix p.o. b.i.d. - Carafate p.o. b.i.d. - Maalox t.i.d. - currently tolerating full liquid diet well - diet will be progressed soft diet in the morning # lactic acidosis likely due to dehydration # JANUARY likely prerenal due to dehydration # alcohol abuse disorder - given IV fluids -watch for alcohol withdrawal -CIWA score less than and - Librium 25 mg q.d. - thiamine, folic acid IV Patient counseled on cessation of alcohol use and smoking cessation for over 25 minutes. Goals of care discussed with the patient for over 20 minutes. Full code Plan discussed with Dr. Medrano Plan discussed with: Patient My Orders My Orders Orders - ALBERTA MCNULTY Procedure Category Date Status Time Sucralfate Susp PHA 08/10/24 In Process (Carafate Susp) 22:00 Full Liq Diet DIET 08/10/24 Transmitted Lunch Pantoprazole Tablet PHA 08/10/24 In Process (Protonix Tablet) 17:00 Alum & Mag PHA 08/10/24 In Process Hydrox-Simethicone 11:30 Date of Service: Aug 10, 2024 Billing Provider: KING MEDRANO MD Common Visit Codes: [id number] INP/OBS CARE(HIGH) ALBERTA MCNULTY RESIDENT Aug 10, 2024 17:03 KING MEDRANO MD Aug 17, 2024 14:47
[2024-08-10] MEDS: PANTOPRAZOLE 40 MG TAB PO SCH (17:52)
[2024-08-10] MEDS: chlordiazePOXIDE HCL 25 MG CAP PO ONE (17:52)
[2024-08-10] MEDS: THIAMINE 100mg/ml INJ (200mg/2ml VIAL) IV ONE (17:52)
[2024-08-10] MEDS: FOLIC ACID 1 MG in D5W 5% 50 ML INJ ONE (18:49)
[2024-08-10] MEDS: MAALOX PLUS or MAALOX 30 ML PO SCH (21:34)
[2024-08-10] MEDS: SUCRALFATE 1 GM/10 ML ORAL SUSP PO SCH (21:34)
[2024-08-10] MEDS ORDERED: PANTOPRAZOLE 40 MG/10 ML VIAL INJ IV SCH (22:00)
[2024-08-11 01:00] VITALS: BP 128/68; PULSE 76; RESP 18; TEMP 97.5; O2SAT 96
[2024-08-11 05:00] VITALS: BP 136/88; PULSE 79; RESP 19; TEMP 97.6; O2SAT 98
[2024-08-11 07:46] LABS: Anion Gap 9 (5-15); BUN/Creatinine Ratio 7.6 (10.0-20.0); Calcium 9.2 mg/dL (8.7-10.4); Carbon Dioxide 26 mmol/L (20-31); Chloride 105 mmol/L (98-107); Glucose 97 mg/dL (74-106); Sodium 140 mmol/L (136-145); Total Protein 6.1 g/dL (5.7-8.2)
[2024-08-11 07:47] LABS: Aspartate Aminotransferase 14 U/L (13-40); Basophils # (auto) 0 10 ^3/uL (0-0.2); Basophils % (auto) 0.4 % (0.0-2.0); Bilirubin, Total 0.3 mg/dL (0.2-1.0); Eosinophils # (auto) 0.2 10 ^3/uL (0-0.8); Hematocrit 28.9 % (41.0-53.0); Hemoglobin 9.7 g/dL (13.5-17.5); Lymphocytes # (auto) 2.5 10 ^3/uL (0.4-5.4); Lymphocytes % (auto) 45.6 % (10.0-50.0); Mean Corpuscular Hgb Conc. 33.7 g/dL (32.0-36.0); Mean Corpuscular Volume 91.8 fL (80.0-100.0); Monocytes # (auto) 0.4 10 ^3/uL (0-1.3); Monocytes % (auto) 7.4 % (0.0-12.0); Neutrophils # (auto) 2.4 10 ^3/uL (1.6-8.6); Neutrophils % (auto) 43.6 % (37.0-80.0); Nucleated Red Blood Cells % 0.1 %; Platelet Count (auto) 429 10^3/uL (140-450); Red Blood Cells 3.15 10^6/uL (4.5-5.90); White Blood Cell 5.5 10^3/uL (4.4-10.8)
[2024-08-11 07:53] LABS: Alanine Aminotransferase < 9 U/L (7-40); Alkaline Phosphatase 45 U/L (46-116); Blood Urea Nitrogen 5 mg/dL (9-23); Potassium 3.4 mmol/L (3.5-5.1)
[2024-08-11 08:00] VITALS: PULSE 75; RESP 16; O2SAT 95
[2024-08-11 08:39] VITALS: BP 154/94; PULSE 90; RESP 16; TEMP 98.2; O2SAT 98
[2024-08-11] MEDS: POTASSIUM EFFERVESENT TAB 25 MEQ PO ONE (10:11)
[2024-08-11 13:00] VITALS: BP 119/77; PULSE 101; RESP 18; TEMP 97.8; O2SAT 100
[2024-08-11] MEDS ORDERED: PANT40TA2 PO ×2 (13:34)
[2024-08-11] MEDS ORDERED: SUCR1SUS5 PO ×2 (13:34)
[2024-08-11 13:54] VITALS: BP 168/84
--- NOTE | 2024-08-11 20:10 | DVHDSRES ---
Discharge Summary Date of Admission Resident Creating Document: ALBERTA MCNULTY RESIDENT Aug 09, 2024 at 09:58 Date of Discharge: Aug 11, 2024 Admitting Diagnosis # acute abdominal pain, GERD vs gastritis given history of alcohol abuse # hx of diverticulitis # lactic acidosis #JANUARY on CKD # tobacco use Wounds: none Labs/Diagnostic Data: Laboratory Results Test 08/11/24 05:50 08/10/24 13:16 08/10/24 06:31 08/09/24 09:35 White Blood Count 5.5 10^3/uL (4.4-10.8) Red Blood Count 3.15 10^6/uL (4.5-5.90) Hemoglobin 9.7 g/dL (13.5-17.5) Hematocrit 28.9 % (41.0-53.0) Mean Corpuscular Volume 91.8 fL (80.0-100.0) Mean Corpuscular Hemoglobin 31.0 pg (28.0-32.0) Mean Corpuscular Hemoglobin Concent 33.7 g/dL (32.0-36.0) Red Cell Distribution Width 17.0 % (11.8-14.3) Platelet Count 429 10^3/uL (140-450) Mean Platelet Volume 7.3 fL (6.9-10.8) Neutrophils (%) (Auto) 43.6 % (37.0-80.0) Lymphocytes (%) (Auto) 45.6 % (10.0-50.0) Monocytes (%) (Auto) 7.4 % (0.0-12.0) Eosinophils (%) (Auto) 3.0 % (0.0-7.0) Basophils (%) (Auto) 0.4 % (0.0-2.0) Neutrophils # (Auto) 2.4 10 ^3/uL (1.6-8.6) Lymphocytes # (Auto) 2.5 10 ^3/uL (0.4-5.4) Monocytes # (Auto) 0.4 10 ^3/uL (0-1.3) Eosinophils # (Auto) 0.2 10 ^3/uL (0-0.8) Basophils # (Auto) 0 10 ^3/uL (0-0.2) Nucleated Red Blood Cells 0.1 % Sodium Level 140 mmol/L (136-145) Potassium Level 3.4 mmol/L (3.5-5.1) Chloride Level 105 mmol/L (98-107) Carbon Dioxide Level 26 mmol/L (20-31) Anion Gap 9 (5-15) Blood Urea Nitrogen 5 mg/dL (9-23) Creatinine 0.66 mg/dL (0.700-1.30) Glomerular Filtration Rate Calc 111 mL/min (>90) BUN/Creatinine Ratio 7.6 (10.0-20.0) Serum Glucose 97 mg/dL (74-106) Calcium Level 9.2 mg/dL (8.7-10.4) Total Bilirubin 0.3 mg/dL (0.2-1.0) Aspartate Amino Transferase (AST) 14 U/L (13-40) Alanine Aminotransferase (ALT) < 9 U/L (7-40) Alkaline Phosphatase 45 U/L (46-116) Total Protein 6.1 g/dL (5.7-8.2) Albumin 4.0 g/dL (3.2-4.8) Stool Occult Blood Sample #3 Negative (Negative) Reticulocyte Count (auto) 0.98 % (0.5-1.5) Lipase 26 U/L (12-53) Urine Color Light-yellow (Yellow) Urine Clarity Clear (Clear) Urine pH 5.5 (5.0-9.0) Urine Specific [place] > 1.050 (1.001-1.035) Urine Protein Trace (Negative) Urine Ketones Negative (Negative) Urine Blood Negative /uL (Negative) Urine Nitrite Negative (Negative) Urine Bilirubin Negative (Negative) Urine Urobilinogen Normal mg/dL (Negative) Urine Leukocyte Esterase Negative /uL (Negative) Urine RBC None seen /hpf (0 - 3) Urine Microscopic WBC < 1 /HPF (0-3) Urine Squamous Epithelial Cells None seen /hpf (<5) Urine Bacteria None seen /hpf (None Seen) Urine Glucose Normal mg/dL (Normal) Urine Opiates Screen Neg (NEGATIVE) Urine Fentanyl Screen Neg (NEGATIVE) Urine Barbiturates Screen Neg (NEGATIVE) Urine Phencyclidine Screen Neg (NEGATIVE) Urine Amphetamines Screen Neg (NEGATIVE) Urine Benzodiazepines Screen Pos (NEGATIVE) Urine Cocaine Screen Neg (NEGATIVE) Urine Cannabinoids Screen Neg (NEGATIVE) Test 08/09/24 06:23 08/09/24 03:58 Lactic Acid Level 1.8 mmol/L (0.4-2.0) Plasma/Serum Blood Alcohol < 3.0 mg/dL (<10) Other Laboratory Tests 08/11/24 05:50 Brief Hx & Hospital Course: Patient is a 54-year-old female with a past medical history of hypertension, anxiety, alcohol abuse and tobacco use presents to the ED with a chief complaint of worsening abdominal pain for the last 2 weeks. Patient was recently admitted to the hospital for for similar abdominal pain during that admission abdominal CT was done which showed concentric wall thickening of the sigmoid colon with adjacent fat stranding and treated for diverticulitis and alcohol withdrawal and was discharged in stable condition asked to follow up with the primary doctor. Patient reported that his abdominal pain did not improve after being discharged and yesterday it became unbearable following which she came to the hospital for further evaluation. Patient reports that the abdominal pain when he came in was 10/10 on intensity, worsens on eating food, crampy and radiates across the abdomen in a bandlike pattern. Patient reports constipation on and off but denies blood in stool or blood in vomiting. Patient denied dysuria, flank pain, CVA tenderness. Patient does have acid reflux and about 4 years ago had upper endoscopy done in [place] where he was told about the ulcers and was put on medication which he is not taking currently. Patient denied chest pain, shortness of breath, hematemesis, diarrhea, melena. Past medical history: hypertension, anxiety, alcohol abuse and tobacco use Surgical history: None Social history: Patient drinks about 4-5 shots of vodka every day and smokes cigars quarter cigar every day and cigarettes. Home medications: Denies taking any medication Brief Hospital course Patient admitted to the hospital for worsening abdominal pain following which CT abdomen pelvis was done in the ER which showed no acute abnormality, hepatic steatosis was seen. Patient has had multiple admission in the past for similar acute abdominal pain. Patient is known Chronic alcoholic and tobacco user. Serum lipase was within normal limits. From the characteristics of the abdominal pain which comes on every time after eating, we suspected peptic ulcer following which stool occult blood was done which was negative. Patient was started on Protonix 40 mg b.i.d. and Carafate 1 g b.i.d.. Patient tolerated full liquid diets well as well as mechanical soft diet. On admission patient had lactic acidosis with JANUARY which was likely due to dehydration following which he was given IV fluid hydration. He was observed for signs and symptoms of alcohol withdrawal and was given a dose of Librium. Patient was advised to follow with the medication regimen strictly and follow up with the primary care provider Dr. De Luna with whom he has a appointment scheduled on 08/17/24. Patient was discharged in stable condition to home Discharge plan Follow up with the PCP Medication: Protonix 40 mg b.i.d., Carafate 1 g p.o. q.i.d. Avoid NSAIDs, spicy foods, strictly avoid alcohol and smoking Diet: Continue on full liquid diet for 2 weeks and then gradually to regular diet as tolerated Consults/Reason for consult none Operations or Procedures CT abdomen pelvis with IV contrast FINDINGS: Imaged portions of the lung bases appear unremarkable. There is diffuse hepatic steatosis. 6 mm hypodensity in the right hepatic lobe, likely cysts, stable spleen, pancreas, gallbladder and adrenal glands appear unremarkable. Kidneys enhance symmetrically. No evidence of small-bowel obstruction. Appendix appears normal. Moderate intracolonic stool no free fluid, free air, or adenopathy. No suspicious osseous lesion. IMPRESSION: 1. No acute abnormality in the abdomen or pelvis. 2. Hepatic steatosis Condition at Discharge: Good Final Diagnosis/Problems List # acute abdominal pain # dyspepsia # suspected acute gastritis # ?Peptic ulcer disease # lactic acidosis likely due to dehydration # JANUARY likely prerenal due to dehydration # alcohol abuse disorder Discharge Disposition: Home Discharge Instruct/Medications Diet: See Comment Diet comment: continue for full liquid diet for two weeks then advance to regular diet as tolerated strictly avoid alcohol and smoking avoid NSAIDS, caffeine, spicy foods Activity: No Restrictions, As Tolerated Follow Up/Referral: Follow up with the PCP in one week Medications: protonix 40 mg BID Carafate 1gm PO QID Discharge Statement: "Patient was advised to return to the ER or call 911 if any headaches, dizziness, shortness of breath, chest pain, abdominal pain, bleeding, fevers, or worsening of medical condition. Patient was counseled about treatment plan, medications, possible side effects, patientverbalized understanding. All questions were answered to the best of my ability. This discharge took greater then 30 minutes in planning, reviewing documentation, counseling the patient, and discussing with other team members." ASSESSMENT ASSESSMENT Assessment # acute abdominal pain # dyspepsia # suspected acute gastritis # ?Peptic ulcer disease # lactic acidosis likely due to dehydration # JANUARY likely prerenal due to dehydration # alcohol abuse disorder Date of Service: Aug 11, 2024 Billing Provider: KING MEDRANO MD Common Visit Codes: [id number]/OBS DISCH DAY >30min ALBERTA MCNULTY RESIDENT Aug 11, 2024 20:10 KING MEDRANO MD Aug 17, 2024 15:12
== END 2024-08-11 14:20 | disposition home or self-care (01) | DRG 241 ==
LOC: ER 03:12 → OVERFLOW 09:58 → WEST WING 12:41
PROVIDERS: ADMIT Student in an Organized Health Care Education/Training Program; ATTEND Emergency Medicine
DX: K27.3 Acute peptic ulcer, site unspecified, without hemorrhage or perforation (principal); N17.0 Acute kidney failure with tubular necrosis; E87.20 Acidosis, unspecified; K29.00 Acute gastritis without bleeding; I12.9 Hypertensive chronic kidney disease with stage 1 through stage 4 chronic kidney disease, or unspecified chronic kidney disease; N18.9 Chronic kidney disease, unspecified; K21.9 Gastro-esophageal reflux disease without esophagitis; D64.9 Anemia, unspecified; F32.A Depression, unspecified; K59.00 Constipation, unspecified; F41.9 Anxiety disorder, unspecified; F17.210 Nicotine dependence, cigarettes, uncomplicated; E86.0 Dehydration; F10.10 Alcohol abuse, uncomplicated; Y90.0 Blood alcohol level of less than 20 mg/100 ml; Z87.11 Personal history of peptic ulcer disease; Z71.6 Tobacco abuse counseling; Z79.1 Long term (current) use of non-steroidal anti-inflammatories (NSAID); Z79.899 Other long term (current) drug therapy; Z79.891 Long term (current) use of opiate analgesic; K27.7 Chronic peptic ulcer, site unspecified, without hemorrhage or perforation
CPT/HCPCS: 36415; 71045; 74177; 80053; 80307; 80320; 81001; 82270; 83605; 83690; 85025; 85045; 87040; 87081; 96365; 96367; 96375; 96376; G0378; J0131; J1885; J2470; J2543; J7060

== ENCOUNTER 2024-08-16 09:52 | Emergency (ER) | payer MEDICAID ==
[~2024-08-16] VITALS: Ht 175.3 cm; Wt 64.0 kg
[~2024-08-16 09:52] MED LIST changes: +PANT40TA2 PO; +SUCR1SUS5 PO
[2024-08-16 10:00] VITALS: TEMP 98.5
--- NOTE | 2024-08-16 10:23 | ED.PDOC ---
GI ASSESSMENT HPI Comments 54 year old male presents to the ED with a chief complaint of abdominal pain onset 1 week. Patient states he was diagnosed with Diverticulitis about 1 week ago, was admitted for 3 days. Patient noticed pain began last night, worsen this morning, pain begins LLQ, radiates to RLQ and back, has also experienced constipation for the past week. PMHx Diverticulitis, HTN, anxiety, depression PUD. Denies blood in stool, hematemesis, diarrhea, fever, chills, chest pain, shortness of breath. No other symptoms or modifying factors present at this time. Chief Complaint: Abdominal Pain Time Seen by MD: 10:04 Primary Care Provider: VLADISLAV Ramey Notes: Medications, Allergies Allergies: Coded Allergies: NO KNOWN ALLERGIES (Unverified , 04/16/20) Home Meds Active Scripts Pantoprazole Sodium Sesquihydr (Protonix) 40 Mg Tab, 40 MG PO BID for 30 Days, #60 TAB Prov:ALBERTA MCNULTY RESIDENT 08/11/24 Sucralfate (Carafate) 1 Gm/10 Ml Shirin, 10 ML PO QID for 30 Days, #1200 ML Prov:ALBERTA MCNULTY RESIDENT 08/11/24 Information Source: Patient Mode of Arrival: Ambulatory Timing: Weeks Duration: Since onset Prehospital treatment: None Quality: Burning Severity: Moderate Recent Hx of: Other (diverticultits) Pain Location: RLQ, LUQ Modifying Factors: Nothing Associated sign and symptoms: Nausea, Vomiting, Constipation, Abdominal Pain Past Medical History PAST MEDICAL HISTORY: Anemia, Anxiety, Depression, HTN, PUD Surgical History: Denies all surgeries Family History Family History: Family hx of Cancer Social History Smoker: Cigarettes Alcohol: Heavy Drugs: Denies Drug Use Lives In: Home Constitutional: denies: chills, diaphoresis, fatigue, fever, malaise, sweats, weakness, others EENTM: denies: blurred vision, double vision, ear bleeding, ear discharge, ear drainage, ear pain, ear ringing, eye pain, eye redness, hearing loss, mouth pain, mouth swelling, nasal discharge, nose bleeding, nose congestion, nose pain, photophobia, tearing, throat pain, throat swelling, voice changes, others Respiratory: denies: cough, hemoptysis, orthopnea, SOB at rest, shortness of breath, SOB with excertion, stridor, wheezing, others Cardiovascular: denies: chest pain, dizzy spells, diaphoresis, Dyspnea on exertion, edema, irregular heart beat, left arm pain, lightheadedness, palpitations, PND, syncope, others Gastrointestinal: reports: abdominal pain, constipated, nausea, vomiting; denies: abdomen distended, blood streaked bowels, diarrhea, dysphagia, difficulty swallowing, hematemesis, melena, poor appetite, poor fluid intake, rectal bleeding, rectal pain, others Genitourinary: denies: burning, dysuria, flank pain, frequency, hematuria, incontinence, penile discharge, penile sore, pain, testicle pain, testicle swelling, urgency, others Neurological: denies: dizziness, fainting, headache, left sided numbness, left sided weakness, numbness, paresthesia, pre-existing deficit, right sided numbness, right sided weakness, seizure, speech problems, tingling, tremors, weakness, others Musculoskeletal: reports: back pain; denies: gout, joint pain, joint swelling, muscle pain, muscle stiffness, neck pain, others Integumetry: denies: bruises, change in color, change in hair/nails, dryness, laceration, lesions, lumps, rash, wounds, others Allergic/Immunocompromised: denies: Difficulty Healing, Frequent Infections, Hives, Itching, others Hematologic/Lymphatic: denies: anemia, blood clots, easy bleeding, easy bruising, swollen glands, others Endocrine: denies: excessive hunger, excessive sweating, excessive thirst, excessive urination, flushing, intolerance to cold, intolerance to heat, unexpla ined weight gain, unexplained weight loss, others Psychiatric: denies: anxiety, bipolar disorder, depression, hopeless, panic disorder, schizophrenia, sleepless, suicidal, others All Other Systems: Reviewed and Negative Physical Exam General Appearance: Mild Distress HEENT: Normal ENT Inspection, Pharynx Normal, TMs Normal Neck: Full Range of Motion, Non-Tender, Normal, Normal Inspection Respiratory: Chest Non-Tender, Lungs Clear, No Accessory Muscle Use, No Respiratory Distress, Normal Breath Sounds Cardiovascular: No Edema, No JVD, No Murmur, No Gallop, Normal Peripheral Pulses, Regular Rate/Rhythm Breast Exam: Deferred Gastrointestinal: No Organomegaly, Non Tender, No Pulsatile Mass, Normal Bowel Sounds, Soft Genitalia: Deferred Pelvic: Deferred Rectal: Deferred Extremities: No calf tenderness, Normal capillary refill, Normal inspection, N ormal range of motion, Non-tender, No pedal edema Musculoskeletal : Apperance: Normal Neurologic: Alert, call center rn II-XII nml as Tested, No Motor Deficits, Normal Affect, Normal Mood, No Sensory Deficits Cerebellar Function: Normal Reflexes: Normal Skin: Dry, Normal Color, Warm Lymphatic: No Adenopathy Was a procedure done? Was a procedure done?: No GI differential Dx Differential Diagnosis: Appendicitis, Gastritis/PUD, Gastroenteritis, Electrolyte Imbalance, Food Poisoning X-Ray, Labs, Meds, VS Vital Signs Date Time Temp Pulse Resp B/P (MAP) Pulse Ox O2 Delivery O2 Flow Rate FiO2 08/16/24 11:15 93 16 174/89 08/16/24 10:40 87 20 177/92 08/16/24 09:58 98.5 104 24 151/112 (125) 100 98.5 193/106 (135) Lab Test 08/16/24 10:21 Range/Units White Blood Count 8.7 # 4.4-10.8 10^3/uL Red Blood Count 3.44 L 4.5-5.90 10^6/uL Hemoglobin 10.2 L 13.5-17.5 g/dL Hematocrit 31.4 L 41.0-53.0 % Mean Corpuscular Volume 91.3 80.0-100.0 fL Mean Corpuscular Hemoglobin 29.7 28.0-32.0 pg Mean Corpuscular Hemoglobin Concent 32.6 32.0-36.0 g/dL Red Cell Distribution Width 17.4 H 11.8-14.3 % Platelet Count 493 H 140-450 10^3/uL Mean Platelet Volume 6.9 6.9-10.8 fL Neutrophils (%) (Auto) 69.6 37.0-80.0 % Lymphocytes (%) (Auto) 20.6 10.0-50.0 % Monocytes (%) (Auto) 6.9 0.0-12.0 % Eosinophils (%) (Auto) 1.8 0.0-7.0 % Basophils (%) (Auto) 1.1 0.0-2.0 % Neutrophils # (Auto) 6.0 1.6-8.6 10 ^3/uL Lymphocytes # (Auto) 1.8 0.4-5.4 10 ^3/uL Monocytes # (Auto) 0.6 0-1.3 10 ^3/uL Eosinophils # (Auto) 0.2 0-0.8 10 ^3/uL Basophils # (Auto) 0.1 0-0.2 10 ^3/uL Nucleated Red Blood Cells 0.1 % Sodium Level 142 136-145 mmol/L Potassium Level 3.4 L 3.5-5.1 mmol/L Chloride Level 107 98-107 mmol/L Carbon Dioxide Level 28 20-31 mmol/L Anion Gap 7 5-15 Blood Urea Nitrogen 15 9-23 mg/dL Creatinine 0.74 0.700-1.30 mg/dL Glomerular Filtration Rate Calc 108 >90 mL/min BUN/Creatinine Ratio 20.3 H 10.0-20.0 Serum Glucose 95 74-106 mg/dL Calcium Level 10.0 8.7-10.4 mg/dL Total Bilirubin 0.3 0.2-1.0 mg/dL Aspartate Amino Transferase (AST) 13 13-40 U/L Alanine Aminotransferase (ALT) < 9 7-40 U/L Alkaline Phosphatase 53 46-116 U/L Total Protein 7.2 5.7-8.2 g/dL Albumin 4.7 3.2-4.8 g/dL Lipase 28 12-53 U/L Current Medications Medications (Trade) Dose Ordered Sig/Rick Route Start Time Stop Time Status Last Admin Ondansetron HCl (Zofran) 4 mg ONCE ONCE IV 08/16/24 10:15 08/16/24 10:16 DC 08/16/24 10:37 Sodium Chloride 1,000 ml @ 1,000 mls/hr Q1H ONCE IVB 08/16/24 10:15 08/16/24 11:14 DC 08/16/24 10:35 Morphine Sulfate 4 mg ONCE ONCE IV 08/16/24 10:15 08/16/24 10:16 DC 08/16/24 10:40 PROCEDURE(s): ABPL - CT AB PEL WO CON-NO ORAL OR IV REASON: PAIN ORDER NUMBER(s): [id number], ACCESSION NUMBER(s): [id number] IMPRESSION: No acute intraabdominal abnormality. Mild L1 compression deformity. ATED BY: LUIZ ISAAC MD DICTATED DATE/TIME: 08/16/24 105 SIGNED BY: LUIZ ISAAC MD SIGNED DATE/TIME: 08/16/241053 The patient had an IV Hep-Lock established. The patient was given Zofran 4 mg IV push for the nausea The patient was given morphine 4 mg IV push for the pain The patient was given normal saline at 1 L bolus. The patient's CBC shows anemia with a hemoglobin of 10.2 and hematocrit of 31.4 The chemistry panel is within normal limits. After the medication, the patient states that he feels much better The patient was discharged Images Reviewed?: Images reviewed and evaluated by me Time of 1ST Reevaluation: 10:34 Reevaluation 1ST: Unchanged Patient Education/Counseling: Diagnosis, Treatment, Prognosis, Need For Follow Up Family Education/Counseling: No Family Present Departure 1 Departure Time of Disposition: 11:29 Impression: Primary Impression: Abdominal pain Qualified Codes: R10.9 - Unspecified abdominal pain Disposition: 01 HOME / SELF CARE / HOMELESS Condition: Fair Discharged With: Self Critical Care Note Critical Care Time?: No Stability Stability form required: No Heart Score Heart Score: Heart Score Response (Comments) Value History N/A 0 EKG N/A 0 Age N/A 0 Risk Factors N/A 0 Troponin N/A 0 Total 0 I personally scribed for SHERI SOLIS MD ([email or web address]) on 08/16/24 at 10:23. Electronically submitted by Lamar Woodson ([email or web address]). I personally scribed for SHERI SOLIS MD ([email or web address]) on 08/16/24 at 11:11. Electronically submitted by Lamar Woodson ([email or web address]). SHERI SOLIS MD Aug 16, 2024 10:23
[2024-08-16 10:33] LABS: Basophils # (auto) 0.1 10 ^3/uL (0-0.2); Basophils % (auto) 1.1 % (0.0-2.0); Eosinophils # (auto) 0.2 10 ^3/uL (0-0.8); Eosinophils % (auto) 1.8 % (0.0-7.0); Hematocrit 31.4 % (41.0-53.0); Hemoglobin 10.2 g/dL (13.5-17.5); Lymphocytes # (auto) 1.8 10 ^3/uL (0.4-5.4); Lymphocytes % (auto) 20.6 % (10.0-50.0); Mean Corpuscular Hemoglobin 29.7 pg (28.0-32.0); Mean Corpuscular Hgb Conc. 32.6 g/dL (32.0-36.0); Mean Corpuscular Volume 91.3 fL (80.0-100.0); Monocytes # (auto) 0.6 10 ^3/uL (0-1.3); Monocytes % (auto) 6.9 % (0.0-12.0); Neutrophils % (auto) 69.6 % (37.0-80.0); Nucleated Red Blood Cells % 0.1 %; Platelet Count (auto) 493 10^3/uL (140-450); Red Blood Cells 3.44 10^6/uL (4.5-5.90); Red Cell Distribution Width 17.4 % (11.8-14.3); White Blood Cell 8.7 10^3/uL (4.4-10.8)
[2024-08-16] MEDS: SODIUM CHLORIDE 0.9% 1,000 ML IVB ONE (10:35)
[2024-08-16] MEDS: ONDANSETRON HCL 4 MG/2 ML VIAL IV ONE (10:37)
[2024-08-16] MEDS: MORPHINE SULFATE 4 MG/ML SYR/VIAL IV ONE (10:40)
--- NOTE | 2024-08-16 10:56 | DVH ---
CT CT AB PEL WO CON-NO ORAL OR IV INDICATION: PAIN EXAM DATE: 08/16/2024 10:22 AM COMPARISON: CT CT AB PEL WO CON-NO ORAL OR IV on DOS: 07/29/24, CT CT AB PEL WO CON-NO ORAL OR IV on D OS: 07/23/24, CT CT AB PEL WO CON-NO ORAL OR IV on DOS: 07/18/24 RADIATION DOSE: CTDIvol: 5.07 mGy, DLP: 264.17 mGy*cm PROCEDURE: Helical CT images were obtained of the abdomen and pelvis without IV contrast Sagittal and coronal reconstructions are provided. ORAL CONTRAST: None. ADDITIONAL IMAGES / REFORMATS: None All C T scans at this medical facility are performed using dose modulation techniques as appropriate to a p erformed exam including the following: Automated exposure control was utilized; adjustment of the MA and/or KV according to patient size; and use of iterative reconstruction technique. FINDINGS: LUNG BASE: Normal. LIVER: Normal. GALLBLADDER AND BILIARY TREE: No calcified gallstones. Normal caliber wall. No intra- or extrahepatic biliary ductal dilation. PANCREAS: Normal. SPLEEN: Normal. BOWEL: Normal. Normal appendix. ADRENALS: Normal. KIDNEYS AND URETER: Normal. BLADDER: Normal. REPRODUCTIVE ORGANS: Normal. LYMPH NODES:No lymphadenopathy. PERITONEUM: No ascites or free air. No other fluid collection. VESSELS: Scattered atherosclerotic calcifications are noted. RETROPERITONEUM: Normal. ABDOMINAL WALL: Normal. BONES: Scattered osseous degenerative changes are noted. Mild L1 compression deformity. IMPRESSION: No acute intraabdominal abnormality. Mild L1 compression deformity.
[2024-08-16 11:00] VITALS: PULSE 104; RESP 20; O2SAT 100
[2024-08-16 11:00] LABS: Albumin 4.7 g/dL (3.2-4.8); Alkaline Phosphatase 53 U/L (46-116); Anion Gap 7 (5-15); BUN/Creatinine Ratio 20.3 (10.0-20.0); Blood Urea Nitrogen 15 mg/dL (9-23); Carbon Dioxide 28 mmol/L (20-31); Glucose 95 mg/dL (74-106); Lipase 28 U/L (12-53); Sodium 142 mmol/L (136-145); Total Protein 7.2 g/dL (5.7-8.2)
[2024-08-16 11:01] LABS: Bilirubin, Total 0.3 mg/dL (0.2-1.0)
[2024-08-16 11:02] LABS: Aspartate Aminotransferase 13 U/L (13-40); Chloride 107 mmol/L (98-107); Potassium 3.4 mmol/L (3.5-5.1)
[2024-08-16 11:03] LABS: Alanine Aminotransferase < 9 U/L (7-40)
[2024-08-16 11:15] VITALS: BP 174/89; PULSE 93; RESP 16
[2024-08-16 11:39] LABS: Urine Bacteria None Seen /hpf (None Seen)
[2024-08-16 11:50] LABS: Urine Blood Negative /uL (Negative); Urine Clarity Clear (Clear); Urine Color Light-Yellow (Yellow); Urine Protein, UAD Negative (Negative); Urine Specific Gravity 1.019 (1.001-1.035); Urine Squamous Epithelial Cell None Seen /hpf (<5); Urine Urobilinogen Normal (Negative); Urine WBC 1 /HPF (0-3); Urine pH 8.5 (5.0-9.0)
== END 2024-08-16 12:00 | disposition home or self-care (01) ==
LOC: ER 09:52
DX: R10.32 Left lower quadrant pain (principal); R10.31 Right lower quadrant pain; F17.210 Nicotine dependence, cigarettes, uncomplicated; F32.A Depression, unspecified; I10 Essential (primary) hypertension; F41.9 Anxiety disorder, unspecified; F10.90 Alcohol use, unspecified, uncomplicated; Z79.899 Other long term (current) drug therapy
CPT/HCPCS: 36415; 74176; 80053; 81001; 83690; 85025; 96361; 96374; 96375; 99285; J2270; J2405; J7030

== ENCOUNTER 2024-08-18 13:26 | Emergency (ER) | payer MEDICAID ==
[~2024-08-18] VITALS: Ht 175.3 cm; Wt 63.0 kg
[~2024-08-18 13:26] MED LIST changes: -AUG875T PO; -PANT40T PO
--- NOTE | 2024-08-18 13:43 | ED.PDOC ---
GI ASSESSMENT HPI Comments 54 y/o M, presents to the ED for CC of abdominal pain. Patient states, that he has been experiencing LLQ abdominal pain with associated nausea and vomiting x1hour. Patient relays, that he was seen at [facility] on 08/16/24 for DX: Abdominal Pain; symptoms have since returned. Patient comments on new symptoms of constipation. Patient denies weakness, melena, hematemesis, body-aches, or diarrhea. No other symptoms or modifying factors at this time. Time Seen by MD: 13:30 Primary Care Provider: [email or web address] Reviewed Notes: Nurses Notes, Medications, Allergies Allergies: Coded Allergies: NO KNOWN ALLERGIES (Unverified , 04/16/20) Home Meds Active Scripts Pantoprazole Sodium Sesquihydr (Protonix) 40 Mg Tab, 40 MG PO BID for 30 Days, #60 TAB Prov:ALBERTA MCNULTY RESIDENT 08/11/24 Sucralfate (Carafate) 1 Gm/10 Ml Shirin, 10 ML PO QID for 30 Days, #1200 ML Prov:ALBERTA MCNULTY RESIDENT 08/11/24 Information Source: Patient Mode of Arrival: Ambulatory Timing: Hours Duration: Since onset Prehospital treatment: None Quality: None Vomitus: Watery Stool: Impaction Severity: Moderate Recent: None Recent Hx of: None Pain Location: LLQ Modifying Factors: Nothing Associated sign and symptoms: Nausea, Vomiting, Constipation Past Medical History PAST MEDICAL HISTORY: Anemia, Anxiety, Depression, HTN, PUD Surgical History: Denies all surgeries Family History Family History: Family hx of Cancer Social History Smoker: Cigarettes Alcohol: Heavy Drugs: Denies Drug Use Lives In: Home Constitutional: denies: chills, diaphoresis, fatigue, fever, malaise, sweats, weakness, others EENTM: denies: blurred vision, double vision, ear bleeding, ear discharge, ear drainage, ear pain, ear ringing, eye pain, eye redness, hearing loss, mouth pain, mouth swelling, nasal discharge, nose bleeding, nose congestion, nose pain, photophobia, tearing, throat pain, throat swelling, voice changes, others Respiratory: denies: cough, hemoptysis, orthopnea, SOB at rest, shortness of breath, SOB with excertion, stridor, wheezing, others Cardiovascular: denies: chest pain, dizzy spells, diaphoresis, Dyspnea on exertion, edema, irregular heart beat, left arm pain, lightheadedness, palpitations, PND, syncope, others Gastrointestinal: reports: abdominal pain, constipated, nausea, vomiting; denies: abdomen distended, blood streaked bowels, diarrhea, dysphagia, difficulty swallowing, hematemesis, melena, poor appetite, poor fluid intake, rectal bleeding, rectal pain, others Genitourinary: denies: burning, dysuria, flank pain, frequency, hematuria, incontinence, penile discharge, penile sore, pain, testicle pain, testicle swelling, urgency, others Neurological: denies: dizziness, fainting, headache, left sided numbness, left sided weakness, numbness, paresthesia, pre-existing deficit, right sided numbness, right sided weakness, seizure, speech problems, tingling, tremors, weakness, others Musculoskeletal: denies: back pain, gout, joint pain, joint swelling, muscle pain, muscle stiffness, neck pain, others Integumetry: denies: bruises, change in color, change in hair/nails, dryness, laceration, lesions, lumps, rash, wounds, others Allergic/Immunocompromised: denies: Difficulty Healing, Frequent Infections, Hives, Itching, others Hematologic/Lymphatic: denies: anemia, blood clots, easy bleeding, easy bruising, swollen glands, others Endocrine: denies: excessive hunger, excessive sweating, excessive thirst, excessive urination, flushing, intolerance to cold, intolerance to heat, unexplained weight gain, unexplained weight loss, others Psychiatric: denies: anxiety, bipolar disorder, depression, hopeless, panic disorder, schizophrenia, sleepless, suicidal, others All Other Systems: Reviewed and Negative Physical Exam General Appearance: No Apparent Distress HEENT: Normal ENT Inspection, Pharynx Normal, TMs Normal Neck: Full Range of Motion, Non-Tender, Normal, Normal Inspection Respiratory: Chest Non-Tender, Lungs Clear, No Accessory Muscle Use, No Re spiratory Distress, Normal Breath Sounds Cardiovascular: No Edema, No JVD, No Murmur, No Gallop, Normal Peripheral Pulses, Regular Rate/Rhythm Breast Exam: Deferred Gastrointestinal: No Organomegaly, Non Tender, No Pulsatile Mass, Normal Bowel Sounds, Soft Genitalia: Deferred Pelvic: Deferred Rectal: Deferred Extremities: No calf tenderness, Normal capillary refill, Normal inspection, Normal range of motion, Non-tender, No pedal edema Musculoskeletal : Apperance: Normal Neurologic: Alert, roving court reporter II-XII nml as Tested, No Motor Deficits, Normal Affect, Normal Mood, No Sensory Deficits Cerebellar Function: Normal Reflexes: Normal Skin: Dry, Normal Color, Warm Lymphatic: No Adenopathy Was a procedure done? Was a procedure done?: No GI differential Dx Differential Diagnosis: Gastritis/PUD, Gastroenteritis, Electrolyte Imbalance, Food Poisoning, Bacterial, Viral X-Ray, Labs, Meds, VS Vital Signs Date Time Temp Pulse Resp B/P (MAP) Pulse Ox O2 Delivery O2 Flow Rate FiO2 08/18/24 13:55 97.8 80 22 116/77 (90) 100 97.8 Lab Test 08/18/24 14:03 Range/Units White Blood Count 9.1 4.4-10.8 10^3/uL Red Blood Count 3.34 L 4.5-5.90 10^6/uL Hemoglobin 10.1 L 13.5-17.5 g/dL Hematocrit 30.1 L 41.0-53.0 % Mean Corpuscular Volume 90.1 80.0-100.0 fL Mean Corpuscular Hemoglobin 30.3 28.0-32.0 pg Mean Corpuscular Hemoglobin Concent 33.6 32.0-36.0 g/dL Red Cell Distribution Width 17.6 H 11.8-14.3 % Platelet Count 433 140-450 10^3/uL Mean Platelet Volume 6.8 L 6.9-10.8 fL Neutrophils (%) (Auto) 69.6 37.0-80.0 % Lymphocytes (%) (Auto) 20.9 10.0-50.0 % Monocytes (%) (Auto) 7.4 0.0-12.0 % Eosinophils (%) (Auto) 1.6 0.0-7.0 % Basophils (%) (Auto) 0.5 0.0-2.0 % Neutrophils # (Auto) 6.3 1.6-8.6 10 ^3/uL Lymphocytes # (Auto) 1.9 0.4-5.4 10 ^3/uL Monocytes # (Auto) 0.7 0-1.3 10 ^3/uL Eosinophils # (Auto) 0.1 0-0.8 10 ^3/uL Basophils # (Auto) 0 0-0.2 10 ^3/uL Nucleated Red Blood Cells 0.0 % Sodium Level 141 136-145 mmol/L Potassium Level 3.5 3.5-5.1 mmol/L Chloride Level 109 H 98-107 mmol/L Carbon Dioxide Level 21 20-31 mmol/L Anion Gap 11 5-15 Blood Urea Nitrogen 9 9-23 mg/dL Creatinine 1.07 0.700-1.30 mg/dL Glomerular Filtration Rate Calc 82 >90 mL/min BUN/Creatinine Ratio 8.4 L 10.0-20.0 Serum Glucose 111 H 74-106 mg/dL Calcium Level 9.9 8.7-10.4 mg/dL Total Bilirubin 0.4 0.2-1.0 mg/dL Aspartate Amino Transferase (AST) 13 13-40 U/L Alanine Aminotransferase (ALT) < 9 7-40 U/L Alkaline Phosphatase 53 46-116 U/L Total Protein 7.2 5.7-8.2 g/dL Albumin 4.7 3.2-4.8 g/dL Lipase 25 12-53 U/L CT ABD PEL: Findings: Lung Bases: No acute or significant lung base finding. Normal heart size. No pleural or pericardial effusion. Liver: The liver is normal in size. No focal lesions. Gallbladder and Biliary Tree: Unremarkable Spleen: Unremarkable Pancreas: The pancreas is grossly normal in appearance. Adrenal Glands: Unremarkable Kidneys: Kidneys are grossly normal without calculi or hydronephrosis. Bladder: Grossly unremarkable for degree of distention. Bowel: The stomach is grossly normal in appearance. Small bowel and colon are normal in caliber and distribution. The appendix is not visualized; however, no secondary findings of acute appendicitis identified. Ascites: Absent Lymphadenopathy: No mesenteric, retroperitoneal or periportal lymphadenopathy. Abdominal Wall and Mesentery: Unremarkable. Vasculature: The visualized abdominal aorta is normal in size and caliber. Evaluation of abdominal and pelvic vessels is limited due to lack of intravenous contrast. Pelvic Organs: Unremarkable Musculoskeletal: No aggressive focal bony lesions, acute fractures or dislocation. Soft tissues: Unremarkable IMPRESSION: 1. No findings to suggest bowel obstruction. 2. Stool throughout colon. As noted on all 5 previous CTs of the abdomen and pelvis since 07/04/2024. Radiation optimization: All CT scans at this facility use at least one of these dose optimization techniques: automated exposure control mA and/or kV adjustment per patient size (includes targeted exams where dose is matched to clinical indication) or iterative reconstruction. The patient's CBC shows anemia The chemistry panel is within normal limits At this time, the patient was being discharged The patient will follow up primary care doctor The patient will return to the emergency department's condition worsens. Images Reviewed?: Images reviewed and evaluated by me Time of 1ST Reevaluation: 14:00 Reevaluation 1ST: Unchanged Patient Education/Counseling: Diagnosis, Treatment, Prognosis, Need For Follow Up Family Education/Counseling: No Family Present Departure 1 Departure Time of Disposition: 19:05 Impression: Primary Impression: Abdominal pain Qualified Codes: R10.9 - Unspecified abdominal pain Additional Impression: Alcohol abuse Disposition: 01 HOME / SELF CARE / HOMELESS Condition: Fair Discharged With: Self Critical Care Note Critical Care Time?: No Stability Stability form required: No Heart Score Heart Score: Heart Score Response (Comments) Value History N/A 0 EKG N/A 0 Age N/A 0 Risk Factors N/A 0 Troponin N/A 0 Total 0 I personally scribed for SHERI SOLIS MD ([email or web address]) on 08/18/24 at 13:43. Electronically submitted by Erica Machado ([email or web address]). I personally scribed for SHERI SOLIS MD ([email or web address]) on 08/18/24 at 15:05. Electronically submitted by Erica Machado ([email or web address]). SHERI SOLIS MD Aug 18, 2024 13:43
[2024-08-18 14:14] LABS: Basophils # (auto) 0 10 ^3/uL (0-0.2); Basophils % (auto) 0.5 % (0.0-2.0); Eosinophils # (auto) 0.1 10 ^3/uL (0-0.8); Eosinophils % (auto) 1.6 % (0.0-7.0); Hematocrit 30.1 % (41.0-53.0); Hemoglobin 10.1 g/dL (13.5-17.5); Lymphocytes # (auto) 1.9 10 ^3/uL (0.4-5.4); Lymphocytes % (auto) 20.9 % (10.0-50.0); Mean Corpuscular Hemoglobin 30.3 pg (28.0-32.0); Mean Corpuscular Hgb Conc. 33.6 g/dL (32.0-36.0); Mean Corpuscular Volume 90.1 fL (80.0-100.0); Monocytes # (auto) 0.7 10 ^3/uL (0-1.3); Monocytes % (auto) 7.4 % (0.0-12.0); Neutrophils # (auto) 6.3 10 ^3/uL (1.6-8.6); Neutrophils % (auto) 69.6 % (37.0-80.0); Platelet Count (auto) 433 10^3/uL (140-450); Red Blood Cells 3.34 10^6/uL (4.5-5.90); Red Cell Distribution Width 17.6 % (11.8-14.3); White Blood Cell 9.1 10^3/uL (4.4-10.8)
[2024-08-18 14:36] LABS: Albumin 4.7 g/dL (3.2-4.8); Alkaline Phosphatase 53 U/L (46-116); Anion Gap 11 (5-15); BUN/Creatinine Ratio 8.4 (10.0-20.0); Blood Urea Nitrogen 9 mg/dL (9-23); Calcium 9.9 mg/dL (8.7-10.4); Carbon Dioxide 21 mmol/L (20-31); Lipase 25 U/L (12-53); Potassium 3.5 mmol/L (3.5-5.1); Sodium 141 mmol/L (136-145); Total Protein 7.2 g/dL (5.7-8.2)
[2024-08-18 14:37] LABS: Alanine Aminotransferase < 9 U/L (7-40); Aspartate Aminotransferase 13 U/L (13-40); Bilirubin, Total 0.4 mg/dL (0.2-1.0); Chloride 109 mmol/L (98-107); Glucose 111 mg/dL (74-106)
--- NOTE | 2024-08-18 15:01 | DVH ---
Exam: CT CT AB PEL WO CON-NO ORAL OR IV History: pain Comparison Study: CT abdomen pelvis done: 08/16/2024, 08/09/2024, 07/23/2024, 07/18/2024, 07/04/2024. . TECHNIQUE: Multidetector CT of the abdomen was performed from lung bases to pubic symphysis. Imaging was performed without IV contrast. Axial, coronal and sagittal multiplanar reformats were obtained fr om the axial data set by the technologist. Radiation Dose Information: CT Dose: CTDI volume is 5.21 mGy. Dose-length product is 290.49 mGy*cm FINDINGS: Evaluation of solid organs is limited due to lack of intravenous contrast use. Findings: Lung Bases: No acute or significant lung base finding. Normal heart size. No pleural or pericardial effusion. Liver: The liver is normal in size. No focal lesions. Gallbladder and Biliary Tree: Unremarkable Spleen: Unremarkable Pancreas: The pancreas is grossly normal in appearance. Adrenal Glands: Unremarkable Kidneys: Kidneys are grossly normal without calculi or hydronephrosis. Bladder: Grossly unremarkable for degree of distention. Bowel: The stomach is grossly normal in appearance. Small bowel and colon are normal in caliber and d istribution. The appendix is not visualized; however, no secondary findings of acute appendicitis id entified. Ascites: Absent Lymphadenopathy: No mesenteric, retroperitoneal or periportal lymphadenopathy. Abdominal Wall and Mesentery: Unremarkable. Vasculature: The visualized abdominal aorta is normal in size and caliber. Evaluation of abdominal a nd pelvic vessels is limited due to lack of intravenous contrast. Pelvic Organs: Unremarkable Musculoskeletal: No aggressive focal bony lesions, acute fractures or dislocation. Soft tissues: Unremarkable IMPRESSION: 1. No findings to suggest bowel obstruction. 2. Stool throughout colon. As noted on all 5 previous CTs of the abdomen and pelvis since 07/04/2024. Radiation optimization: All CT scans at this facility use at least one of these dose optimization te chniques: automated exposure control mA and/or kV adjustment per patient size (includes targeted exa ms where dose is matched to clinical indication) or iterative reconstruction.
[2024-08-18 20:12] VITALS: PULSE 82; RESP 18; TEMP 98.4; O2SAT 97
[2024-08-18] MEDS: SODIUM CHLORIDE 0.9% 1,000 ML IVB ONE (20:18)
[2024-08-18 20:19] VITALS: BP 138/88; PULSE 82; RESP 18
[2024-08-18] MEDS: PROCHLORPERAZINE EDISYLATE 5 MG/ML 2ML VIAL IV ONE (20:19)
[2024-08-18] MEDS: MORPHINE SULFATE 4 MG/ML SYR/VIAL IV ONE (20:19)
[2024-08-18] MEDS: PANTOPRAZOLE 40 MG/10 ML VIAL INJ IV ONE (20:20)
== END 2024-08-18 21:05 | disposition home or self-care (01) ==
LOC: ER 13:26
DX: R10.32 Left lower quadrant pain (principal); F10.10 Alcohol abuse, uncomplicated; K59.00 Constipation, unspecified; F17.210 Nicotine dependence, cigarettes, uncomplicated; I10 Essential (primary) hypertension; F41.9 Anxiety disorder, unspecified; D64.9 Anemia, unspecified; Z79.899 Other long term (current) drug therapy; Z87.11 Personal history of peptic ulcer disease
CPT/HCPCS: 36415; 74176; 80053; 83690; 85025; 96361; 96374; 96375; 99285; J0780; J2270; J2470; J7030

== ENCOUNTER 2024-08-21 11:18 | Emergency (ER) | payer MEDICAID ==
[~2024-08-21] VITALS: Ht 175.3 cm; Wt 61.0 kg
--- NOTE | 2024-08-21 11:37 | ED.PDOC ---
GI ASSESSMENT HPI Comments HPI: 54 year old male presents to the ED with chief complaint of abdominal pain. Patient reports that he has been experiencing diffuse abdominal pain with associated nausea and vomiting for the past 4 weeks. Patient relays that he has been seen multiple times in the ED for the same complaint. Patient states he was sent home with Protonix, Carafate, and antibiotics, but he stopped his antibiotics 4 days ago. Patient was seen on 08/18 and 08/16 with scans indicating patient has constipation. Patient notes that he has a GI appointment scheduled for 08/27. Patient's last bowel movement was yesterday at 10:30pm and he last used ETOH 4 days ago. Patient denies any hematemesis, rectal bleeding, diarrhea, fever, or chills. Initial Vital Signs: Temp : 98.7F BP: 161/88 HR: 94 RR: 16 SpO2: 100% on RA Past Medical History: HTN, Depression, Anemia, Anxiety, PUD Past Surgical History: Denies Social History: Smokes cigarettes and heavy ETOH use. Denies drug use. Medications: No medications. Allergies: NKDA HPI: Poor Historian. REVIEW OF SYSTEMS: CONSTITUTIONAL: Denies acute: fever, diaphoresis, chills, generalized weakness. HEAD: Denies acute: headache, photophobia Eyes: Denies acute: Double vision, vision loss, eye pain, eye discharge. EARS: Denies acute: tinnitus, hearing loss, ear discharge, ear pain, THROAT: Denies acute: sore throat, swelling, difficulty swallowing , pain with swallowing, change in voice. NECK: Denies acute: neck pain, neck swelling, stiff neck. HEART: Denies acute : chest pain, palpitations, LUNGS: Denies acute: SOB, wheezing, cough, hemoptysis ABDOMEN: Denies acute: diarrhea, melena , hematemesis, hematochezia SKIN: Denies acute: rash, redness, lesions, itchiness. EXTREMITIES: Denies acute: calf pain, numbness, tingling, weakness, denies pain in extremity. Denies acute: Low back pain. Neuro: Denies acute: focal neurological deficit, motor or sensory focal neurological deficit, tremors, seizure like activity, confusion, dizziness, change in mental status, loss of bowel or bladder function, cauda equina like symptoms. : Denies acute: dysuria, hematuria, flank pain, increase in urinary frequency. PSYCH: Denies acute: hallucination, suicidal ideation, homicidal ideation. PHYSICAL EXAM: General: no acute distress, awake and alert. Head: normocephalic, atraumatic. Neck: supple, trachea is midline, no swelling. Throat: Normal phonation. Eyes:, no erythema, no purulent discharge, no proptosis, no icterus. Heart: regular rate, regular rhythm, no significant murmur appreciated. Lungs: no apparent respiratory distress, Able to speak in full sentences. No wheezing, no rhonchi, no crackles. No stridors Clear to auscultation bilaterally. Abdomen: Mild nonspecific generalized tender to palpation, non distended, soft, no guarding, no rebound, + bowel sounds. Neuro: Awake, Alert, oriented to name, self, situation, follows commands GCS=15. Speech is normal. Skin: no petechia, no purpura, no cyanosis, non-pale, not jaundice. Lower extremities: --no - Pitting edema no deformity, no focal swelling, no calf TTP. Makes eye contact. moves all four extremities. Face: no apparent facial droop. ED COURSE: Time Seen by MD: 11:34 Primary Care Provider: [email or web address] Reviewed Notes: Nurses Notes, Medications, Allergies Allergies: Coded Allergies: NO KNOWN ALLERGIES (Unverified , 04/16/20) Home Meds Active Scripts Pantoprazole Sodium Sesquihydr (Protonix) 40 Mg Tab, 40 MG PO BID for 30 Days, #60 TAB Prov:ALBERTA MCNULTY RESIDENT 08/11/24 Sucralfate (Carafate) 1 Gm/10 Ml Shirin, 10 ML PO QID for 30 Days, #1200 ML Prov:ALBERTA MCNULTY RESIDENT 08/11/24 Information Source: Patient Was a procedure done? Was a procedure done?: No GI differential Dx Differential Diagnosis: Other (DDX include but not limited to diverticulitis, colitis, gastroenteritis, acute abdomen, SBO, enteritis, constipation, volvulus, appendicitis, Gallbladder disease, choledocolithiasis, ascending cholangitis, pancreatitis, intraAbdominal mass/neoplasm, hepatitis, UTI, pylonephritis, kidney stone, aneurysm, dissection, Inflammatory bowel disease, gastroparesis, ischemic bowel.) X-Ray, Labs, Meds, VS Vital Signs Date Time Temp Pulse Resp B/P (MAP) Pulse Ox O2 Delivery O2 Flow Rate FiO2 08/21/24 14:45 98.7 86 20 150/82 (104) 98 98.7 08/21/24 13:53 69 08/21/24 13:01 99 14 100 Room Air* 0 21 08/21/24 11:51 94 17 100 Room Air 08/21/24 11:51 98.7 94 17 147/83 (104) 100 98.7 08/21/24 11:36 98.7 94 16 161/88 (112) 100 98.7 Lab Test 08/21/24 11:40 08/21/24 11:28 Range/Units White Blood Count 7.6 4.4-10.8 10^3/uL Red Blood Count 3.45 L 4.5-5.90 10^6/uL Hemoglobin 10.2 L 13.5-17.5 g/dL Hematocrit 31.1 L 41.0-53.0 % Mean Corpuscular Volume 90.1 80.0-100.0 fL Mean Corpuscular Hemoglobin 29.7 28.0-32.0 pg Mean Corpuscular Hemoglobin Concent 32.9 32.0-36.0 g/dL Red Cell Distribution Width 17.8 H 11.8-14.3 % Platelet Count 319 140-450 10^3/uL Mean Platelet Volume 6.9 6.9-10.8 fL Neutrophils (%) (Auto) 68.0 37.0-80.0 % Lymphocytes (%) (Auto) 21.0 10.0-50.0 % Monocytes (%) (Auto) 8.9 0.0-12.0 % Eosinophils (%) (Auto) 1.4 0.0-7.0 % Basophils (%) (Auto) 0.7 0.0-2.0 % Neutrophils # (Auto) 5.2 1.6-8.6 10 ^3/uL Lymphocytes # (Auto) 1.6 0.4-5.4 10 ^3/uL Monocytes # (Auto) 0.7 0-1.3 10 ^3/uL Eosinophils # (Auto) 0.1 0-0.8 10 ^3/uL Basophils # (Auto) 0.1 0-0.2 10 ^3/uL Nucleated Red Blood Cells 0.1 % Sodium Level 142 136-145 mmol/L Potassium Level 3.2 L 3.5-5.1 mmol/L Chloride Level 110 H 98-107 mmol/L Carbon Dioxide Level 25 20-31 mmol/L Anion Gap 7 5-15 Blood Urea Nitrogen 10 9-23 mg/dL Creatinine 0.77 0.700-1.30 mg/dL Glomerular Filtration Rate Calc 106 >90 mL/min BUN/Creatinine Ratio 13.0 10.0-20.0 Serum Glucose 108 H 74-106 mg/dL Lactic Acid Level 1.4 0.4-2.0 mmol/L Calcium Level 9.6 8.7-10.4 mg/dL Total Bilirubin 0.4 0.2-1.0 mg/dL Aspartate Amino Transferase (AST) 13 13-40 U/L Alanine Aminotransferase (ALT) < 9 7-40 U/L Alkaline Phosphatase 55 46-116 U/L Troponin I High Sensitivity < 3 L </=54 ng/L Total Protein 6.8 5.7-8.2 g/dL Albumin 4.5 3.2-4.8 g/dL Lipase 25 12-53 U/L Plasma/Serum Blood Alcohol < 3.0 <10 mg/dL Urine Color Yellow Yellow Urine Clarity Clear Clear Urine pH 6.0 5.0-9.0 Urine Specific [place] 1.030 1.001-1.035 Urine Protein 1+ H Negative Urine Ketones Trace Negative Urine Blood Negative Negative /uL Urine Nitrite Negative Negative Urine Bilirubin Negative Negative Urine Urobilinogen 2 H Negative mg/dL Urine Leukocyte Esterase Negative Negative /uL Urine RBC <1 0 - 3 /hpf Urine Microscopic WBC 2 0-3 /HPF Urine Squamous Epithelial Cells Few <5 /hpf Urine Bacteria None seen None Seen /hpf Urine Mucus Few None Seen Urine Glucose Normal Normal mg/dL Urine Opiates Screen Neg NEGATIVE Urine Fentanyl Screen Neg NEGATIVE Urine Barbiturates Screen Neg NEGATIVE Urine Phencyclidine Screen Neg NEGATIVE Urine Amphetamines Screen Neg NEGATIVE Urine Benzodiazepines Screen Pos NEGATIVE Urine Cocaine Screen Neg NEGATIVE Urine Cannabinoids Screen Neg NEGATIVE Current Medications Medications (Trade) Dose Ordered Sig/Rick Route Start Time Stop Time Status Last Admin Sodium Chloride 1,000 ml @ 1,000 mls/hr Q1H ONCE IV 08/21/24 11:30 08/21/24 12:29 DC 08/21/24 12:22 Ondansetron HCl (Zofran) 8 mg ONCE ONCE IV 08/21/24 11:30 08/21/24 11:31 DC 08/21/24 12:40 Pantoprazole Sodium (Protonix) 40 mg ONCE ONCE IV 08/21/24 11:30 08/21/24 11:31 DC 08/21/24 12:40 Potassium Chloride (Klor-Con Tablet) 40 meq ONCE ONCE PO 08/21/24 13:15 08/21/24 14:26 DC 08/21/24 14:37 [place] [id number] Ph: [phone] DIAGNOSTIC IMAGING Diagnostic Imaging Report : [id number] Signed PATIENT: DALTON MANCINI KACCT: [id number] UNIT: [id number] : 1970 LOC: ER ROOM / BED: / AGE / SEX: 54 / M ADM STATUS: REG ER SERVICE 1126 ORDERING PHYSICIAN: CECI ROJAS DO PROCEDURE(s): ABPL - CT AB PEL WO CON-NO ORAL OR IV REASON: abd pain n/v/ ORDER NUMBER(s): [id number], ACCESSION NUMBER(s): [id number] Exam: CT CT AB PEL WO CON-NO ORAL OR IV History: abd pain n/v/ Comparison Study: CT CT AB PEL WO CON-NO ORAL OR IV on DOS: 08/18/24, CT CT AB PEL WO CON-NO ORAL OR IV on DOS: 08/16/24, CT CT AB PEL WO CON-NO ORAL OR IV on DOS: 07/29/24 Technique: Multidetector spiral CT of the abdomen and pelvis was performed from lung bases to pubic symphysis. Imaging was performed without IV contrast. Axial, coronal and sagittal multiplanar reformats were obtained from the axial data set by the technologist. Radiation dose : Abdomen/Pelvis: CTDIvol 6 mGy, DLP 400 mGy*cm. Findings: Evaluation of solid organs is limited due to lack of intravenous contrast use. Lung Bases: No acute or significant lung base finding. Normal heart size. No pleural or pericardial effusion. Liver: Subcentimeter hypodensity in the dome of the liver. Gallbladder and biliary Tree: Unremarkable Spleen: Unremarkable Pancreas: The pancreas is grossly normal in appearance. Adrenal Glands: Unremarkable Kidneys: Kidneys are grossly normal without calculi or hydronephrosis. Bladder: Grossly unremarkable for degree of distention. Bowel: The stomach is grossly normal in appearance. Small bowel and colon are normal in caliber and distribution. The appendix is not visualized; however, no secondary findings of acute appendicitis identified. Ascites: Absent Lymphadenopathy: Few subcentimeter right lower quadrant lymph nodes noted. Abdominal wall and Mesentery: Unremarkable. Vasculature: The visualized abdominal aorta is normal in size and caliber. Evaluation of abdominal and pelvic vessels is limited due to lack of intravenous contrast. Pelvic Organs: Unremarkable Musculoskeletal: No aggressive focal bony lesions, acute fractures or dislocation. IMPRESSION: 1. No acute abdominal or pelvic findings. No hydronephrosis or nephrolithiasis. Few subcentimeter right lower quadrant lymph nodes are nonspecific. Clinical correlation and continued follow-up is recommended. If concern persists consider follow-up exam with contrast. Likely hepatic cyst. Radiation optimization: All CT scans at this facility use at least one of these dose optimization techniques: Automated exposure control mA and/or kV adjustment per patient size (includes targeted exams where dose is matched to clinical ind ication) or iterative reconstruction. HS:Y ATED BY: DIOGO BURGOS MD DICTATED DATE/TIME: 08/21/24 1255 SIGNED BY: DIOGO BURGOS MD SIGNED DATE/TIME: 08/21/24 1255 CC: Time of 1ST Reevaluation: 12:34 Reevaluation 1ST: Unchanged Patient Education/Counseling: Diagnosis, Treatment Family Education/Counseling: No Family Present Comments Patient was not have any nausea or vomiting here in the ED. Patient presented with the above HPI.--abdominal pain----workup was initiated. patient was found with the above mentioned diagnosis. the following medications were ordered: please refer to order lists of meds and tests obtained by myself Dr. Rojas. Patient ED course and VS have been stabilized. Patient has been reassessed in the ED and remained in a stable condition. Pertinent incidental findings were discussed with the patient and/or family. Patient/family voices understanding and is agreeable with plan. Patient has been observed in the ED adequate length of time to insure improvement/stability. Escalation of care considered: Consideration of escalation to observation or admission Patient was DISCHARGED home in a stable condition. All the reports of any imaging studies that were ordered by myself were reviewed by myself. Departure 1 Departure Time of Disposition: 14:12 Impression: Primary Impression: Abdominal pain Additional Impression: Anemia Disposition: HOME / SELF CARE / HOMELESS Condition: Stable Additional Instructions: Additional discharge instructions: You MUST follow-up with your primary care/family doctor in 1 to 2 days. If you are unable to see your primary care/family doctor, please return to our emergency room for re-assessment and re-evaluation in 1 to 2 days. Return to the emergency room here in our facility or to the nearest ER AME if your symptoms change or worsen. CONSULTATIONS: you MUST Follow-up for consultation as soon as possible with: -gastroenterology in 1-2 days. Please call for appointment. You MUST call the consultants office yourself to make an appointment. You may need to arrange that through your insurance and/or your primary/family doctor. If you are unable to see the internal control consultant in 1 to 2 days, you must return to our emergency room (or any other ER of your choice) for re-assessment and re- evaluation. Adequate fluid hydration. Liquid diet in next 72 hours. Increase fiber intake. Below is a copy of your radiological report for follow up: [place] [address] Ph: [phone] DIAGNOSTIC IMAGING Diagnostic Imaging Report : [id number] Signed PATIENT: DALTON MANCINI ACCT: [id number] UNIT: [id number] : 1970 LOC: ER ROOM / BED: / AGE / SEX: 54 / M ADM STATUS: REG ER SERVICE 1126 ORDERING PHYSICIAN: CECI ROJAS DO PROCEDURE(s): ABPL - CT AB PEL WO CON-NO ORAL OR IV REASON: abd pain n/v/ ORDER NUMBER(s): [id number], ACCESSION NUMBER(s): [id number] Exam: CT CT AB PEL WO CON-NO ORAL OR IV History: abd pain n/v/ Comparison Study: CT CT AB PEL WO CON-NO ORAL OR IV on DOS: 08/18/24, CT CT AB PEL WO CON-NO ORAL OR IV on DOS: 08/16/24, CT CT AB PEL WO CON-NO ORAL OR IV on DOS: 07/29/24 Technique: Multidetector spiral CT of the abdomen and pelvis was performed from lung bases to pubic symphysis. Imaging was performed without IV contrast. Axial, coronal and sagittal multiplanar reformats were obtained from the axial data set by the technologist. Radiation dose : Abdomen/Pelvis: CTDIvol 6 mGy, DLP 400 mGy*cm. Findings: Evaluation of solid organs is limited due to lack of intravenous contrast use. Lung Bases: No acute or significant lung base finding. Normal heart size. No pleural or pericardial effusion. Liver: Subcentimeter hypodensity in the dome of the liver. Gallbladder and biliary Tree: Unremarkable Spleen: Unremarkable Pancreas: The pancreas is grossly normal in appearance. Adrenal Glands: Unremarkable Kidneys: Kidneys are grossly normal without calculi or hydronephrosis. Bladder: Grossly unremarkable for degree of distention. Bowel: The stomach is grossly normal in appearance. Small bowel and colon are normal in caliber and distribution. The appendix is not visualized; however, no secondary findings of acute appendicitis identified. Ascites: Absent Lymphadenopathy: Few subcentimeter right lower quadrant lymph nodes noted. Abdominal wall and Mesentery: Unremarkable. Vasculature: The visualized abdominal aorta is normal in size and caliber. Evaluation of abdominal and pelvic vessels is limited due to lack of intravenous contrast. Pelvic Organs: Unremarkable Musculoskeletal: No aggressive focal bony lesions, acute fractures or dislocation. IMPRESSION: 1. No acute abdominal or pelvic findings. No hydronephrosis or nephrolithiasis. Few subcentimeter right lower quadrant lymph nodes are nonspecific. Clinical correlation and continued follow-up is recommended. If concern persists consider follow-up exam with contrast. Likely hepatic cyst. Radiation optimization: All CT scans at this facility use at least one of these dose optimization techniques: Automated exposure control mA and/or kV adjustment per patient size (includes targeted exams where dose is matched to clinical indication) or iterative reconstruction. HS:Y ATED BY: DIOGO BURGOS MD DICTATED DATE/TIME: 08/21/24 1255 SIGNED BY: DIOGO BURGOS MD SIGNED DATE/TIME: 08/21/24 1255 CC: Discharged With: Self Critical Care Note Critical Care Time?: No I personally scribed for CECI ROJAS DO ([email or web address]) on 08/21/24 at 11:37. Electronically submitted by Isaías Orta ([email or web address]). I personally scribed for CECI ROJAS DO ([email or web address]) on 08/21/24 at 12:08. Electronically submitted by Isaías Orta ([email or web address]). I personally scribed for CECI ROJAS DO ([email or web address]) on 08/21/24 at 13:21. Electronically submitted by Isaías Orta ([email or web address]). I personally scribed for CECI ROJAS DO ([email or web address]) on 08/21/24 at 13:49. Electronically submitted by Isaías Orta ([email or web address]). CECI ROJAS DO Aug 21, 2024 11:37
[2024-08-21 11:52] LABS: Basophils # (auto) 0.1 10 ^3/uL (0-0.2); Basophils % (auto) 0.7 % (0.0-2.0); Eosinophils # (auto) 0.1 10 ^3/uL (0-0.8); Eosinophils % (auto) 1.4 % (0.0-7.0); Hematocrit 31.1 % (41.0-53.0); Hemoglobin 10.2 g/dL (13.5-17.5); Lymphocytes # (auto) 1.6 10 ^3/uL (0.4-5.4); Mean Corpuscular Hemoglobin 29.7 pg (28.0-32.0); Mean Corpuscular Hgb Conc. 32.9 g/dL (32.0-36.0); Mean Corpuscular Volume 90.1 fL (80.0-100.0); Monocytes # (auto) 0.7 10 ^3/uL (0-1.3); Monocytes % (auto) 8.9 % (0.0-12.0); Neutrophils # (auto) 5.2 10 ^3/uL (1.6-8.6); Nucleated Red Blood Cells % 0.1 %; Platelet Count (auto) 319 10^3/uL (140-450); Red Blood Cells 3.45 10^6/uL (4.5-5.90); Red Cell Distribution Width 17.8 % (11.8-14.3); White Blood Cell 7.6 10^3/uL (4.4-10.8)
[2024-08-21 12:06] LABS: Alkaline Phosphatase 55 U/L (46-116); Anion Gap 7 (5-15); Blood Urea Nitrogen 10 mg/dL (9-23); Calcium 9.6 mg/dL (8.7-10.4); Carbon Dioxide 25 mmol/L (20-31); Lipase 25 U/L (12-53); Sodium 142 mmol/L (136-145); Total Protein 6.8 g/dL (5.7-8.2)
[2024-08-21 12:07] LABS: Albumin 4.5 g/dL (3.2-4.8); Bilirubin, Total 0.4 mg/dL (0.2-1.0)
[2024-08-21 12:10] LABS: Alanine Aminotransferase < 9 U/L (7-40); Aspartate Aminotransferase 13 U/L (13-40); Chloride 110 mmol/L (98-107); Glucose 108 mg/dL (74-106); Potassium 3.2 mmol/L (3.5-5.1)
[2024-08-21] MEDS: SODIUM CHLORIDE 0.9% 1,000 ML IV ONE (12:22)
[2024-08-21 12:27] LABS: Blood Alcohol < 3.0 mg/dL (<10)
[2024-08-21 12:28] LABS: Urine Bacteria None Seen /hpf (None Seen)
[2024-08-21 12:37] LABS: Urine Blood Negative /uL (Negative); Urine Clarity Clear (Clear); Urine Color Yellow (Yellow); Urine Mucus FEW (None Seen); Urine Protein, UAD 1+ (Negative); Urine Squamous Epithelial Cell FEW /hpf (<5); Urine Urobilinogen 2 mg/dL (Negative); Urine WBC 2 /HPF (0-3)
[2024-08-21] MEDS: PANTOPRAZOLE 40 MG/10 ML VIAL INJ IV ONE (12:40)
[2024-08-21] MEDS: ONDANSETRON HCL 4 MG/2 ML VIAL IV ONE (12:40)
[2024-08-21 12:44] LABS: Amphetamine Screen, Urine Neg (NEGATIVE); Benzodiazephine Screen, Urine Pos (NEGATIVE); Opiate Scree,Urine Neg (NEGATIVE); Phencyclidine Screen, Urine Neg (NEGATIVE)
[2024-08-21 12:46] LABS: Barbiturate Scree,Urine Neg (NEGATIVE); Cannabinoid Screen, Urine Neg (NEGATIVE); Cocaine Screen, Urine Neg (NEGATIVE)
--- NOTE | 2024-08-21 12:58 | DVH ---
Exam: CT CT AB PEL WO CON-NO ORAL OR IV History: abd pain n/v/ Comparison Study: CT CT AB PEL WO CON-NO ORAL OR IV on DOS: 08/18/24, CT CT AB PEL WO CON-NO ORAL OR IV on DOS: 08/16/24, CT CT AB PEL WO CON-NO ORAL OR IV on DOS: 07/29/24 Technique: Multidetector spiral CT of the abdomen and pelvis was performed from lung bases to pubic symphysis. Imaging was performed without IV contrast. Axial, coronal and sagittal multiplanar reform ats were obtained from the axial data set by the technologist. Radiation dose : Abdomen/Pelvis: CTDIvol 6 mGy, DLP 400 mGy*cm. Findings: Evaluation of solid organs is limited due to lack of intravenous contrast use. Lung Bases: No acute or significant lung base finding. Normal heart size. No pleural or pericardial effusion. Liver: Subcentimeter hypodensity in the dome of the liver. Gallbladder and biliary Tree: Unremarkable Spleen: Unremarkable Pancreas: The pancreas is grossly normal in appearance. Adrenal Glands: Unremarkable Kidneys: Kidneys are grossly normal without calculi or hydronephrosis. Bladder: Grossly unremarkable for degree of distention. Bowel: The stomach is grossly normal in appearance. Small bowel and colon are normal in caliber and d istribution. The appendix is not visualized; however, no secondary findings of acute appendicitis shree ntified. Ascites: Absent Lymphadenopathy: Few subcentimeter right lower quadrant lymph nodes noted. Abdominal wall and Mesentery: Unremarkable. Vasculature: The visualized abdominal aorta is normal in size and caliber. Evaluation of abdominal a nd pelvic vessels is limited due to lack of intravenous contrast. Pelvic Organs: Unremarkable Musculoskeletal: No aggressive focal bony lesions, acute fractures or dislocation. IMPRESSION: 1. No acute abdominal or pelvic findings. No hydronephrosis or nephrolithiasis. Few subcentimeter rig ht lower quadrant lymph nodes are nonspecific. Clinical correlation and continued follow-up is recomm ended. If concern persists consider follow-up exam with contrast. Likely hepatic cyst. Radiation optimization: All CT scans at this facility use at least one of these dose optimization zaki hniques: Automated exposure control mA and/or kV adjustment per patient size (includes targeted exams where dose is matched to clinical indication) or iterative reconstruction. HS:Y
[2024-08-21 13:01] VITALS: PULSE 99; RESP 14; O2SAT 100
[2024-08-21] MEDS: POTASSIUM CHL 20 Meq TABLET PO ONE (14:37)
[2024-08-21 14:45] VITALS: BP 150/82; PULSE 86; RESP 20; TEMP 98.7; O2SAT 98
--- NOTE | 2024-08-24 13:13 | ECG ---
[facility] Test Date: 2024-08-21 Test Time: 13:53:01 Pat Name: DALTON MANCINI Department: ER Room: Gender: M Level Vial Inspector: LAVERN : 1970 Requested By: CECI ROJAS Order Number: [id number] Reading MD: Measurements Intervals [place] Rate: 69 P: 79 CT: 140 QRS: 75 QRSD: 98 T: 68 QT: 413 QTc: 443 Interpretive Statements Sinus rhythm Please click the below link to view image of tracing.
== END 2024-08-21 14:49 | disposition home or self-care (01) ==
LOC: ER 11:18
DX: D64.9 Anemia, unspecified (principal); R10.84 Generalized abdominal pain; I10 Essential (primary) hypertension; F17.210 Nicotine dependence, cigarettes, uncomplicated; Z79.899 Other long term (current) drug therapy
CPT/HCPCS: 36415; 74176; 80053; 80307; 80320; 81001; 83605; 83690; 84484; 85025; 93005; 96361; 96374; 96375; 99285; J2405; J2470; J7030

== ENCOUNTER 2024-08-24 22:29 | Inpatient (IN) | payer MEDICAID ==
[~2024-08-24] VITALS: Ht 160.5 cm; Wt 63.0 kg
--- NOTE | 2024-08-24 23:10 | ED.PDOC ---
GI ASSESSMENT HPI Comments 54-year-old male with past medical history pertinent for HTN, presents to ED for lower abdominal pain x3 weeks, associated with nausea, vomiting, diarrhea. Patient reports that his pain is sharp and constant. He currently rates his pain as 10/10 in severity. Patient states that his pain is rated as 10/10 in severity. He has been seen at this ER multiple times for similar symptoms and his CTs have been negative. He denies any alleviating or aggravating factors. Chief Complaint: Abdominal Pain Time Seen by MD: 22:38 Primary Care Provider: VLADISLAV Reviewed Notes: Nurses Notes, Medications, Allergies Allergies: Coded Allergies: NO KNOWN ALLERGIES (Unverified , 04/16/20) Home Meds Active Scripts Pantoprazole Sodium Sesquihydr (Protonix) 40 Mg Tab, 40 MG PO BID for 30 Days, #60 TAB Prov:ALBERTA MCNULTY RESIDENT 08/11/24 Sucralfate (Carafate) 1 Gm/10 Ml Shirin, 10 ML PO QID for 30 Days, #1200 ML Prov:ALBERTA MCNULTY RESIDENT 08/11/24 Mode of Arrival: Ambulatory Past Medical History PAST MEDICAL HISTORY: Anemia, Anxiety, Depression, HTN, PUD Surgical History: Denies all surgeries Family History Family History: Family hx of Cancer Social History Smoker: Cigarettes Alcohol: Heavy Drugs: Denies Drug Use Lives In: Home Constitutional: denies: chills, diaphoresis, fatigue, fever, malaise, sweats, weakness, others EENTM: denies: blurred vision, double vision, ear bleeding, ear discharge, ear drainage, ear pain, ear ringing, eye pain, eye redness, hearing loss, mouth pain, mouth swelling, nasal discharge, nose bleeding, nose congestion, nose pain, photophobia, tearing, throat pain, throat swelling, voice changes, others Respiratory: denies: cough, hemoptysis, orthopnea, SOB at rest, shortness of breath, SOB with excertion, stridor, wheezing, others Cardiovascular: denies: chest pain, dizzy spells, diaphoresis, Dyspnea on exertion, edema, irregular heart beat, left arm pain, lightheadedness, palpitations, PND, syncope, others Gastrointestinal: reports: abdominal pain, diarrhea, nausea, vomiting; denies: abdomen distended, blood streaked bowels, constipated, dysphagia, difficulty swallowing, hematemesis, melena, poor appetite, poor fluid intake, rectal bleeding, rectal pain, others Genitourinary: denies: burning, dysuria, flank pain, frequency, hematuria, incontinence, penile discharge, penile sore, pain, testicle pain, testicle swelling, urgency, others Neurological: denies: dizziness, fainting, headache, left sided numbness, left sided weakness, numbness, paresthesia, pre-existing deficit, right sided numbness, right sided weakness, seizure, speech problems, tingling, tremors, weakness, others Musculoskeletal: denies: back pain, gout, joint pain, joint swelling, muscle pain, muscle stiffness, neck pain, others Integumetry: denies: bruises, change in color, change in hair/nails, dryness, laceration, lesions, lumps, rash, wounds, others Allergic/Immunocompromised: denies: Difficulty Healing, Frequent Infections, Hives, Itching, others Hematologic/Lymphatic: denies: anemia, blood clots, easy bleeding, easy bruising, swollen glands, others Endocrine: denies: excessive hunger, excessive sweating, excessive thirst, excessive urination, flushing, intolerance to cold, intolerance to heat, unexplained weight gain, unexplained weight loss, others Psychiatric: denies: anxiety, bipolar disorder, depression, hopeless, panic disorder, schizophrenia, sleepless, suicidal, others All Other Systems: Reviewed and Negative Physical Exam General Appearance: Moderate Distress, Normal HEENT: Normal ENT Inspection, Pharynx Normal, TMs Normal Neck: Full Range of Motion, Non-Tender, Normal, Normal Inspection Respiratory: Chest Non-Tender, Lungs Clear, No Accessory Muscle Use, No Respiratory Distress, Normal Breath Sounds Cardiovascular: No Edema, No JVD, No Murmur, No Gallop, Normal Peripheral Pulses, Regular Rate/Rhythm Breast Exam: Deferred Gastrointestinal: No Organomegaly, No Pulsatile Mass, Normal Bowel Sounds, Soft, Tenderness (Tenderness to palpation to the lower abdomen.) Genitalia: Deferred Pelvic: Deferred Rectal: Deferred Extremities: No calf tenderness, Normal capillary refill, Normal inspection, Normal range of motion, Non-tender, No pedal edema Musculoskeletal : Apperance: Normal Neurologic: Alert, reading aide II-XII nml as Tested, No Motor Deficits, Normal Affect, Normal Mood, No Sensory Deficits Cerebellar Function: Normal Reflexes: Normal Skin: Dry, Normal Color, Warm Lymphatic: No Adenopathy Was a procedure done? Was a procedure done?: No GI differential Dx Differential Diagnosis: Appendicitis, Constipation, Diverticular disease, Gastritis/PUD, Gastroenteritis, GI hemorrhage, Hernia, Ischemic Bowel, Pancreatitis, Electrolyte Imbalance, Food Poisoning, Kidney Stone X-Ray, Labs, Meds, VS Vital Signs Date Time Temp Pulse Resp B/P (MAP) Pulse Ox O2 Delivery O2 Flow Rate FiO2 08/24/24 23:57 78 16 100 Room Air* 0 21 08/24/24 23:45 97.8 78 16 118/69 (85) 100 97.8 08/24/24 23:45 78 16 100 Room Air 08/24/24 22:40 97.8 88 16 118/69 (85) 100 97.8 Lab Test 08/25/24 01:22 08/24/24 23:24 Range/Units Lactic Acid Level Pending 4.7 *H 0.4-2.0 mmol/L White Blood Count 7.9 4.4-10.8 10^3/uL Red Blood Count 3.53 L 4.5-5.90 10^6/uL Hemoglobin 10.3 L 13.5-17.5 g/dL Hematocrit 32.0 L 41.0-53.0 % Mean Corpuscular Volume 90.7 80.0-100.0 fL Mean Corpuscular Hemoglobin 29.3 28.0-32.0 pg Mean Corpuscular Hemoglobin Concent 32.3 32.0-36.0 g/dL Red Cell Distribution Width 18.0 H 11.8-14.3 % Platelet Count 388 140-450 10^3/uL Mean Platelet Volume 7.3 6.9-10.8 fL Neutrophils (%) (Auto) 66.4 37.0-80.0 % Lymphocytes (%) (Auto) 23.5 10.0-50.0 % Monocytes (%) (Auto) 6.4 0.0-12.0 % Eosinophils (%) (Auto) 3.1 0.0-7.0 % Basophils (%) (Auto) 0.6 0.0-2.0 % Neutrophils # (Auto) 5.3 1.6-8.6 10 ^3/uL Lymphocytes # (Auto) 1.9 0.4-5.4 10 ^3/uL Monocytes # (Auto) 0.5 0-1.3 10 ^3/uL Eosinophils # (Auto) 0.2 0-0.8 10 ^3/uL Basophils # (Auto) 0 0-0.2 10 ^3/uL Nucleated Red Blood Cells 0.1 % Sodium Level 141 136-145 mmol/L Potassium Level 3.0 L 3.5-5.1 mmol/L Chloride Level 109 H 98-107 mmol/L Carbon Dioxide Level 19 L 20-31 mmol/L Anion Gap 13 5-15 Blood Urea Nitrogen 13 9-23 mg/dL Creatinine 1.14 0.700-1.30 mg/dL Glomerular Filtration Rate Calc 76 >90 mL/min BUN/Creatinine Ratio 11.4 10.0-20.0 Serum Glucose 111 H 74-106 mg/dL Calcium Level 9.9 8.7-10.4 mg/dL Total Bilirubin 0.2 0.2-1.0 mg/dL Aspartate Amino Transferase (AST) 14 13-40 U/L Alanine Aminotransferase (ALT) < 9 7-40 U/L Alkaline Phosphatase 67 46-116 U/L Total Protein 7.2 5.7-8.2 g/dL Albumin 4.7 3.2-4.8 g/dL Lipase 25 12-53 U/L Current Medications Medications (Trade) Dose Ordered Sig/Rick Route Start Time Stop Time Status Last Admin Sodium Chloride 1,000 ml @ 1,000 mls/hr Q1H ONCE IV 08/24/24 23:00 08/24/24 23:59 DC 08/24/24 23:41 Ondansetron HCl (Zofran) 4 mg ONCE ONCE IV 08/24/24 23:00 08/24/24 23:01 DC 08/24/24 23:41 Ketorolac Tromethamine (Toradol Injection) 30 mg ONCE ONCE IV 08/24/24 23:00 08/24/24 23:01 DC 08/24/24 23:41 X-Ray, Labs, Meds, VS Comment CT Abd/Pelv IMPRESSION: 1. Concentric wall thickening throughout the colon suggestive of infectious / inflammatory colitis . MDM: Patient with history as above presented with abdominal pain. History obtained from patient. Patient was nontoxic, stable, afebrile, in wheelchair, moderate distress. Exam as above. Labs reviewed. CBC did not show leukocytosis. Anemia was noted with hemoglobin at 10.3 and hematocrit at 32. CMP showed hypokalemia at 3.0. Lactic acid was elevated at 4.7. Lipase within normal limits. Independently reviewed imaging. CT abdomen/pelvis showed infectious colitis. Reviewed external records. All findings were discussed with the patient. Differential diagnosis considered. Overall presentation is consistent with infectious colitis for lactic acidosis. Low suspicion for acute appendicitis, bowel obstruction, septic shock. Patient was given IV Toradol, Zofran, IV fluids. Patient will be admitted to the hospital for IV antibiotics treatment and IV fluid treatment due to lactic acidosis and infectious colitis. Disposition: Admit This medical document was created using the [employer] dictation system. Although this document has been carefully reviewed, there may still be some phonetic and typographical errors, which are due to imperfections of the software program, and do not reflect any compromise in the patient's medical care. Time of 1ST Reevaluation: 01:10 Reevaluation 1ST: Improved Time of 2ND Reevaluation: 01:50 Reevaluation 2ND: Improved Patient Education/Counseling: Diagnosis, Treatment, Prognosis, Need For Follow Up Family Education/Counseling: No Family Present Departure 1 Departure Time of Disposition: 01:50 Impression: Primary Impression: Infectious colitis Additional Impression: Lactic acidosis Disposition: 09 ADMITTED INPATIENT Condition: Fair Critical Care Note Critical Care Time?: No Stability Stability form required: No Heart Score Heart Score: Heart Score Response (Comments) Value History N/A 0 EKG N/A 0 Age N/A 0 Risk Factors N/A 0 Troponin N/A 0 Total 0 JESSICA VARGAS [facility] Aug 24, 2024 23:10
[2024-08-24 23:33] LABS: Basophils # (auto) 0 10 ^3/uL (0-0.2); Basophils % (auto) 0.6 % (0.0-2.0); Eosinophils # (auto) 0.2 10 ^3/uL (0-0.8); Eosinophils % (auto) 3.1 % (0.0-7.0); Hemoglobin 10.3 g/dL (13.5-17.5); Lymphocytes # (auto) 1.9 10 ^3/uL (0.4-5.4); Lymphocytes % (auto) 23.5 % (10.0-50.0); Mean Corpuscular Hemoglobin 29.3 pg (28.0-32.0); Mean Corpuscular Hgb Conc. 32.3 g/dL (32.0-36.0); Mean Corpuscular Volume 90.7 fL (80.0-100.0); Monocytes # (auto) 0.5 10 ^3/uL (0-1.3); Monocytes % (auto) 6.4 % (0.0-12.0); Neutrophils # (auto) 5.3 10 ^3/uL (1.6-8.6); Neutrophils % (auto) 66.4 % (37.0-80.0); Nucleated Red Blood Cells % 0.1 %; Platelet Count (auto) 388 10^3/uL (140-450); Red Blood Cells 3.53 10^6/uL (4.5-5.90); White Blood Cell 7.9 10^3/uL (4.4-10.8)
[2024-08-24] MEDS: SODIUM CHLORIDE 0.9% 1,000 ML IV ONE (23:41)
[2024-08-24] MEDS: ONDANSETRON HCL 4 MG/2 ML VIAL IV ONE (23:41)
[2024-08-24] MEDS: KETOROLAC TROMETH 30 MG/ML 1ML VIAL IV ONE (23:41)
[2024-08-24 23:50] LABS: Albumin 4.7 g/dL (3.2-4.8); Alkaline Phosphatase 67 U/L (46-116); Anion Gap 13 (5-15); Aspartate Aminotransferase 14 U/L (13-40); BUN/Creatinine Ratio 11.4 (10.0-20.0); Blood Urea Nitrogen 13 mg/dL (9-23); Calcium 9.9 mg/dL (8.7-10.4); Lipase 25 U/L (12-53); Sodium 141 mmol/L (136-145); Total Protein 7.2 g/dL (5.7-8.2)
[2024-08-24 23:57] VITALS: PULSE 78; RESP 16; O2SAT 100
[2024-08-24 23:59] LABS: Alanine Aminotransferase < 9 U/L (7-40); Bilirubin, Total 0.2 mg/dL (0.2-1.0); Carbon Dioxide 19 mmol/L (20-31); Chloride 109 mmol/L (98-107); Glucose 111 mg/dL (74-106)
[2024-08-25 00:06] LABS: Lactic Acid w/Reflex 4.7 mmol/L (0.4-2.0)
[2024-08-25] MEDS: IOHEXOL 300 MG/ML 100ML BOTTLE IJ ONE (00:12)
--- NOTE | 2024-08-25 00:46 | DVH ---
Exam: CT CT AB PEL WITH IV CON ONLY History: R/o diverticulitis COMPARISON: CT CT AB PEL WITH IV CON ONLY on DOS: 08/09/24, CT CT AB PEL WITH IV CON ONLY on DOS: 5 Technique: Multidetector spiral CT of the abdomen and pelvis was performed from lung bases to pubic s ymphysis. Intravenous contrast was administered during this examination. Portal venous imaging was obtained. Axial, coronal and sagittal multiplanar reformats were performed by the technologist on a separate workstation. Radiation Dose : 1. Abdomen/Pelvis: CTDIvol 5.29mGy, DLP 281.12 mGy*cm. CONTRAST: Type of contrast: Omni 300 Contrast injected: 100 ml Findings: Lung Bases: No acute or significant lung base finding. Normal heart size. No pleural or pericardial effusion. Liver: The liver is normal in size. No focal lesions. Normal hepatic vascular enhancement. Gallbladder and Biliary Tree: Unremarkable Spleen: Unremarkable Pancreas: The pancreas is normal in appearance without focal lesions or abnormal enhancement. Adrenal Glands: Unremarkable Kidneys: No hydronephrosis. Bladder: Unremarkable Bowel: The stomach is grossly normal in appearance. Concentric wall thickening throughout the colon s uggestive of infectious / inflammatory colitis . The appendix is not visualized; however, no secondar y findings of acute appendicitis identified. Ascites: Absent Lymphadenopathy: No mesenteric, retroperitoneal or periportal lymphadenopathy. Abdominal Wall and Mesentery: Unremarkable. Vasculature: The visualized abdominal aorta is normal in size and caliber. Abdominal and pelvic vess els demonstrate normal enhancement. Pelvic Organs: Unremarkable Musculoskeletal: No aggressive focal bony lesions, acute fractures or dislocation. IMPRESSION: 1. Concentric wall thickening throughout the colon suggestive of infectious / inflammatory colitis . Radiation optimization: All CT scans at this facility use at least one of these dose optimization zaki hniques: automated exposure control mA and/or kV adjustment per patient size (includes targeted exam s where dose is matched to clinical indication) or iterative reconstruction.
[2024-08-25] MEDS: SOD CHL 0.9%/ KCL 40MEQ 1,000 ML IV ONE (01:15)
[2024-08-25] MEDS: CIPROFLOXACIN 400MG/200ML 200 ML IV ONE (02:07)
[2024-08-25] MEDS: metroNIDAZOLE 500MG/100ML 100 ML IV ONE (02:07)
[2024-08-25 03:09] VITALS: PULSE 78; RESP 15; O2SAT 100
[2024-08-25] MEDS ORDERED: ACETAMINOPHEN 325 MG TAB PO PRN (03:15)
[2024-08-25] MEDS: HYDROcodone-ACET 5/325MG TAB PO PRN (03:30)
[2024-08-25] MEDS: ONDANSETRON HCL 4 MG/2 ML VIAL IV PRN (04:46)
--- NOTE | 2024-08-25 04:59 | DVHHP2 ---
History of Present Illness Reason for Visit: Abdominal pain History of Present Illness 54-year-old male presents for evaluation of abdominal pain. Patient reports a two week history of worsening abdominal pain. Reports diffuse abdominal pain with associated nausea, vomiting and nonbloody diarrhea. Denies fever. Reports occasional chills. No melena noted. Denies cardiac or respiratory symptoms. Past Medical History Hypertension, peptic ulcer disease Past Surgical History Denies Family History Noncontributory Smoke: <1 pack per day ALCOHOL: heavy Drugs: None Lives: with Family Review of Systems Review of Systems Review of systems are currently negative otherwise addressed in HPI. Allergies: Coded Allergies: NO KNOWN ALLERGIES (Unverified , 04/16/20) Medications Current Medications Medications Dose Ordered Sig/Rick Route Start Time Stop Time Status Last Admin Dose Admin Ceftriaxone Sodium 50 ml @ 100 mls/hr DAILY@09 IV 08/25/24 09:00 Metronidazole 100 ml @ 100 mls/hr Q8H IV 08/25/24 10:00 Acetaminophen/ Hydrocodone Bitart 1 tab Q4HP PRN PO 08/25/24 03:15 08/25/24 03:30 1 TAB Ondansetron HCl 4 mg Q4HP PRN IV 08/25/24 03:15 08/25/24 04:46 4 MG Acetaminophen 650 mg Q6HP PRN PO 08/25/24 03:15 Morphine Sulfate 2 mg Q8HPRN PRN IV 08/25/24 03:15 Exam Vital Signs Vital Signs Date Time Temp Pulse Resp B/P (MAP) Pulse Ox O2 Delivery O2 Flow Rate FiO2 08/25/24 03:32 79 19 143/76 (98) 96 08/25/24 03:15 97.9 97.9 08/25/24 03:09 Room Air* 0 21 Exam Gen: 54-year-old male in mild distress Skin: Warm, dry, normal color and texture, no rash. HEENT: Normocephalic atraumatic, mucous membranes moist and pink. Neck: Cervical and supraclavicular nodes normal without enlargement, trachea is midline, thyroid gland is normal without masses. Pulmonary: Clear to auscultation and percussion bilaterally. Cardiac: Regular rate and rhythm. No murmur Abdomen: Soft, diffuse tenderness, nondistended, bowel sounds present all 4 quadrants, no guarding, no rigidity, no organomegaly. Extremities: No cyanosis, clubbing, no edema Neuro: Cranial nerves II through XII grossly intact, normal affect and speech, no focal motor deficits. Labs/Xrays ORDERING PHYSICIAN: JESSICA VARGAS PROCEDURE(s): ABPLIV - CT AB PEL WITH IV CON ONLY REASON: R/o diverticulitis ORDER NUMBER(s): [id number], ACCESSION NUMBER(s): [id number] Exam: CT CT AB PEL WITH IV CON ONLY History: R/o diverticulitis COMPARISON: CT CT AB PEL WITH IV CON ONLY on DOS: 08/09/24, CT CT AB PEL WITH IV CON ONLY on DOS: 07/04/24 Technique: Multidetector spiral CT of the abdomen and pelvis was performed from lung bases to pubic symphysis. Intravenous contrast was administered during this examination. Portal venous imaging was obtained. Axial, coronal and sagittal multiplanar reformats were performed by the technologist on a separate workstation. Radiation Dose : 1. Abdomen/Pelvis: CTDIvol 5.29mGy, DLP 281.12 mGy*cm. CONTRAST: Type of contrast: Omni 300 Contrast injected: 100 ml Findings: Lung Bases: No acute or significant lung base finding. Normal heart size. No pleural or pericardial effusion. Liver: The liver is normal in size. No focal lesions. Normal hepatic vascular enhancement. Gallbladder and Biliary Tree: Unremarkable Spleen: Unremarkable Pancreas: The pancreas is normal in appearance without focal lesions or abnormal enhancement. Adrenal Glands: Unremarkable Kidneys: No hydronephrosis. Bladder: Unremarkable Bowel: The stomach is grossly normal in appearance. Concentric wall thickening throughout the colon suggestive of infectious / inflammatory colitis . The appendix is not visualized; however, no secondary findings of acute appendicitis identified. Ascites: Absent Lymphadenopathy: No mesenteric, retroperitoneal or periportal lymphadenopathy. Abdominal Wall and Mesentery: Unremarkable. Vasculature: The visualized abdominal aorta is normal in size and caliber. Abdominal and pelvic vessels demonstrate normal enhancement. Pelvic Organs: Unremarkable Musculoskeletal: No aggressive focal bony lesions, acute fractures or dislocation. IMPRESSION: 1. Concentric wall thickening throughout the colon suggestive of infectious / inflammatory colitis . Radiation optimization: All CT scans at this facility use at least one of these dose optimization techniques: automated exposure control mA and/or kV adjustment per patient size (includes targeted exams where dose is matched to clinical indication) or iterative reconstruction. Labs Test 08/25/24 01:22 08/24/24 23:24 Range/Units Lactic Acid Level 1.1 0.4-2.0 mmol/L White Blood Count 7.9 4.4-10.8 10^3/uL Red Blood Count 3.53 L 4.5-5.90 10^6/uL Hemoglobin 10.3 L 13.5-17.5 g/dL Hematocrit 32.0 L 41.0-53.0 % Mean Corpuscular Volume 90.7 80.0-100.0 fL Mean Corpuscular Hemoglobin 29.3 28.0-32.0 pg Mean Corpuscular Hemoglobin Concent 32.3 32.0-36.0 g/dL Red Cell Distribution Width 18.0 H 11.8-14.3 % Platelet Count 388 140-450 10^3/uL Mean Platelet Volume 7.3 6.9-10.8 fL Neutrophils (%) (Auto) 66.4 37.0-80.0 % Lymphocytes (%) (Auto) 23.5 10.0-50.0 % Monocytes (%) (Auto) 6.4 0.0-12.0 % Eosinophils (%) (Auto) 3.1 0.0-7.0 % Basophils (%) (Auto) 0.6 0.0-2.0 % Neutrophils # (Auto) 5.3 1.6-8.6 10 ^3/uL Lymphocytes # (Auto) 1.9 0.4-5.4 10 ^3/uL Monocytes # (Auto) 0.5 0-1.3 10 ^3/uL Eosinophils # (Auto) 0.2 0-0.8 10 ^3/uL Basophils # (Auto) 0 0-0.2 10 ^3/uL Nucleated Red Blood Cells 0.1 % Sodium Level 141 136-145 mmol/L Potassium Level 3.0 L 3.5-5.1 mmol/L Chloride Level 109 H 98-107 mmol/L Carbon Dioxide Level 19 L 20-31 mmol/L Anion Gap 13 5-15 Blood Urea Nitrogen 13 9-23 mg/dL Creatinine 1.14 0.700-1.30 mg/dL Glomerular Filtration Rate Calc 76 >90 mL/min BUN/Creatinine Ratio 11.4 10.0-20.0 Serum Glucose 111 H 74-106 mg/dL Calcium Level 9.9 8.7-10.4 mg/dL Total Bilirubin 0.2 0.2-1.0 mg/dL Aspartate Amino Transferase (AST) 14 13-40 U/L Alanine Aminotransferase (ALT) < 9 7-40 U/L Alkaline Phosphatase 67 46-116 U/L Total Protein 7.2 5.7-8.2 g/dL Albumin 4.7 3.2-4.8 g/dL Lipase 25 12-53 U/L Assessment/Plan Assessment/Plan Assessment Acute colitis Acute abdominal pain Electrolyte imbalance Lactic acidosis Plan Admit the patient to [facility] to the hospitalist GI consultation Clear liquid diet Stool bacterial culture pending Rocephin/Flagyl Replete electrolytes Continue treatment per orders. Plan discussed with: Patient My Orders Orders - ITA HARRIS Procedure Category Date Status Time Ceftriaxone 1gm/50ml PHA 08/25/24 In Process D5w (Rocephin) 09:00 Metronidazole PHA 08/25/24 In Process 500mg/100ml (Flagyl 10:00 * Gi [facility] [employer] CONS 08/25/24 Transmitted 03:15 Admit ADMIT 08/25/24 Transmitted 03:15 Hydrocodone-Acet PHA 08/25/24 In Process 5/325mg Tab (Nelson 03:15 Ondansetron Hcl PHA 08/25/24 In Process (Zofran) 03:15 Complete Blood Count LAB 08/26/24 Verified 04:00 Condition: Stable RD 08/25/24 In Process 03:15 Acetaminophen Tablet PHA 08/25/24 In Process (Tylenol Tablet) 03:15 Clear Liq Diet DIET 08/25/24 Transmitted Breakfast Bedrest With Bathroom RD 08/25/24 In Process Privileg 03:15 Morphine Sulfate PHA 08/25/24 In Process Injection 03:15 Stool Bacterial SLAVA 08/25/24 Logged Culture 03:15 Clostridium Difficile SLAVA 08/25/24 Logged Toxin 03:15 Basic Metabolic Panel LAB 08/26/24 Verified 04:00 Date of Service: Aug 25, 2024 Billing Provider: ITA HARRIS Common Visit Codes: [id number] INP/OBS CARE (HIGH) ITA HARRIS Aug 25, 2024 04:59
[2024-08-25] MEDS: MORPHINE SULFATE INJ 2 MG/ml SYRG IV PRN ×2 (06:09→13:32)
[2024-08-25] MEDS: PANTOPRAZOLE 40 MG TAB PO SCH (06:09)
[2024-08-25] MEDS: SUCRALFATE 1 GM/10 ML ORAL SUSP PO ONE (08:45)
[2024-08-25 09:17] LABS: Alkaline Phosphatase 56 U/L (46-116); Anion Gap 6 (5-15); Calcium 8.8 mg/dL (8.7-10.4); Carbon Dioxide 26 mmol/L (20-31); Magnesium 1.8 mg/dL (1.6-2.6); Potassium 3.7 mmol/L (3.5-5.1); Sodium 142 mmol/L (136-145); Total Protein 6.1 g/dL (5.7-8.2)
[2024-08-25 09:22] LABS: Blood Urea Nitrogen 9 mg/dL (9-23); Chloride 110 mmol/L (98-107); Glucose 106 mg/dL (74-106)
[2024-08-25] MEDS: KETOROLAC TROMETH 30 MG/ML 1ML VIAL IV ONE (09:22)
[2024-08-25] MEDS: cefTRIAXone 1GM/50ML D5W 50 ML IV SCH (09:22)
[2024-08-25 09:23] LABS: Alanine Aminotransferase < 9 U/L (7-40); Aspartate Aminotransferase 10 U/L (13-40); Bilirubin, Total 0.2 mg/dL (0.2-1.0)
[2024-08-25 09:25] LABS: Basophils # (auto) 0 10 ^3/uL (0-0.2); Basophils % (auto) 0.4 % (0.0-2.0); Eosinophils # (auto) 0.2 10 ^3/uL (0-0.8); Eosinophils % (auto) 2.3 % (0.0-7.0); Hematocrit 28.8 % (41.0-53.0); Hemoglobin 9.2 g/dL (13.5-17.5); Lymphocytes # (auto) 1.9 10 ^3/uL (0.4-5.4); Lymphocytes % (auto) 26.5 % (10.0-50.0); Mean Corpuscular Hemoglobin 28.6 pg (28.0-32.0); Mean Corpuscular Volume 89.4 fL (80.0-100.0); Monocytes # (auto) 0.7 10 ^3/uL (0-1.3); Monocytes % (auto) 9.4 % (0.0-12.0); Neutrophils # (auto) 4.4 10 ^3/uL (1.6-8.6); Neutrophils % (auto) 61.4 % (37.0-80.0); Nucleated Red Blood Cells % 0.1 %; Platelet Count (auto) 358 10^3/uL (140-450); Red Blood Cells 3.22 10^6/uL (4.5-5.90); Red Cell Distribution Width 18.4 % (11.8-14.3); White Blood Cell 7.2 10^3/uL (4.4-10.8)
[2024-08-25] MEDS: HYDROmorphone HCL 2 MG/ML VL/or syr IV ONE (09:40)
[2024-08-25 09:45] LABS: INR 0.93 (0.9-1.15); Partial Thromboplastin Time 25.1 SEC (24.5-34.5); Prothrombin Time 9.9 sec (9.3-11.8)
[2024-08-25] MEDS: metroNIDAZOLE 500MG/100ML 100 ML IV SCH (10:25)
[2024-08-25] MEDS: SODIUM CHLORIDE 0.9% 1,000 ML IV ONE (10:53)
[2024-08-25] MEDS: SUCRALFATE 1 GM/10 ML ORAL SUSP PO SCH (11:30)
[2024-08-25] MEDS: MAGNESIUM SULFATE 1GM/100ML 100 ML IV ONE (13:29)
--- NOTE | 2024-08-25 13:46 | DVHINCON2 ---
GI Consult Consult Note GI consult note Date of Consultation: 08/25/2024 Chief Complaint: Abdominal pain Referring Physician: Bhavesh CORBIN H&P: 54-year-old male presented to ER for abdominal pain. Patient is seen in ER Patient complains of abdominal pain around the periumbilical area and lower abdomen for the past four weeks, and was getting worse in the last few days Patient complains of nausea and vomiting. No hematemesis Patient also has loose stool about one episode every day, watery in consistency. No melena or red blood in stool Patient denies recent travel and antibiotic use No colonoscopy in past Past Medical History: Hypertension, peptic ulcer disease Past Surgical History: Denies Social History: Smoke: <1 pack per day ALCOHOL: heavy Drugs: None Lives: with Family Family History: Noncontributory Review of Systems: Constitutional: no fever, chill, weight loss HEENT: no eye pain, no hearing loss, no oral lesion, no scleral icterus Heart: no chest pain, no chest pressure Lung: no cough, no dyspnea with exertion Abdomen: see HPI Physical exam: General: NAD, AAOX3 Chest: lung brumfield clear to auscultation Heart: RRR, no murmur Abdomen: non-distended, mild periumbilical tenderness to palpation, +BS Labs: Labs Test 08/25/24 08:38 08/25/24 01:22 08/24/24 23:24 Range/Units White Blood Count 7.2 4.4-10.8 10^3/uL Red Blood Count 3.22 L 4.5-5.90 10^6/uL Hemoglobin 9.2 L 13.5-17.5 g/dL Hematocrit 28.8 L 41.0-53.0 % Mean Corpuscular Volume 89.4 80.0-100.0 fL Mean Corpuscular Hemoglobin 28.6 28.0-32.0 pg Mean Corpuscular Hemoglobin Concent 32.0 32.0-36.0 g/dL Red Cell Distribution Width 18.4 H 11.8-14.3 % Platelet Count 358 140-450 10^3/uL Mean Platelet Volume 7.7 6.9-10.8 fL Neutrophils (%) (Auto) 61.4 37.0-80.0 % Lymphocytes (%) (Auto) 26.5 10.0-50.0 % Monocytes (%) (Auto) 9.4 0.0-12.0 % Eosinophils (%) (Auto) 2.3 0.0-7.0 % Basophils (%) (Auto) 0.4 0.0-2.0 % Neutrophils # (Auto) 4.4 1.6-8.6 10 ^3/uL Lymphocytes # (Auto) 1.9 0.4-5.4 10 ^3/uL Monocytes # (Auto) 0.7 0-1.3 10 ^3/uL Eosinophils # (Auto) 0.2 0-0.8 10 ^3/uL Basophils # (Auto) 0 0-0.2 10 ^3/uL Nucleated Red Blood Cells 0.1 % Prothrombin Time 9.9 9.3-11.8 sec Prothrombin Time INR 0.93 0.9-1.15 Activated Partial Thromboplast Time 25.1 24.5-34.5 SEC Sodium Level 142 136-145 mmol/L Potassium Level 3.7 3.5-5.1 mmol/L Chloride Level 110 H 98-107 mmol/L Carbon Dioxide Level 26 20-31 mmol/L Anion Gap 6 5-15 Blood Urea Nitrogen 9 9-23 mg/dL Creatinine 0.90 0.700-1.30 mg/dL Glomerular Filtration Rate Calc 101 >90 mL/min BUN/Creatinine Ratio 10.0 10.0-20.0 Serum Glucose 106 74-106 mg/dL Calcium Level 8.8 8.7-10.4 mg/dL Magnesium Level 1.8 1.6-2.6 mg/dL Total Bilirubin 0.2 0.2-1.0 mg/dL Aspartate Amino Transferase (AST) 10 L 13-40 U/L Alanine Aminotransferase (ALT) < 9 7-40 U/L Alkaline Phosphatase 56 46-116 U/L Total Protein 6.1 5.7-8.2 g/dL Albumin 4.0 3.2-4.8 g/dL Vitamin B12 Level 323 211-911 pg/mL Vitamin D 25-Hydroxy 35.8 30.0-100 ng/mL Thyroid Stimulating Hormone (TSH) 1.10 0.55-4.78 uIU/mL Lactic Acid Level 1.1 0.4-2.0 mmol/L Lipase 25 12-53 U/L Imaging: CT abdomen pelvis IMPRESSION: 1. Concentric wall thickening throughout the colon suggestive of infectious / inflammatory colitis . Assessment: Acute colitis Abdominal pain Lactic acidosis Plan: -discussed with Dr. Zimmer Stool for WBC, C diff and bacterial culture. Continue Flagyl and ceftriaxone Diet as tolerated We will continue to monitor the patient Thank you for this consult Date of Service: Aug 25, 2024 Billing Provider: MARITZA OLMOS Common Visit Codes: CONSULT ONLY Consultation Codes: [id number] CONSULT <60MIN MARITZA OLMOS Aug 25, 2024 13:46
[2024-08-25] MEDS: POTASSIUM EFFERVESENT TAB 25 MEQ PO ONE (14:36)
[2024-08-25 16:12] LABS: Urine Bacteria None Seen /hpf (None Seen)
[2024-08-25 16:26] LABS: Urine Blood Negative /uL (Negative); Urine Clarity Clear (Clear); Urine Color Light-Yellow (Yellow); Urine Protein, UAD Negative (Negative); Urine Specific Gravity 1.016 (1.001-1.035); Urine Squamous Epithelial Cell FEW /hpf (<5); Urine Urobilinogen Normal (Negative); Urine WBC 1 /HPF (0-3); Urine pH 6.5 (5.0-9.0)
[2024-08-25 16:36] LABS: Benzodiazephine Screen, Urine Neg (NEGATIVE); Phencyclidine Screen, Urine Neg (NEGATIVE)
[2024-08-25 16:37] LABS: Amphetamine Screen, Urine Neg (NEGATIVE); Barbiturate Scree,Urine Neg (NEGATIVE); Cannabinoid Screen, Urine Neg (NEGATIVE); Cocaine Screen, Urine Neg (NEGATIVE); Opiate Scree,Urine Pos (NEGATIVE)
[2024-08-25 18:40] VITALS: BP 174/90; PULSE 73; RESP 18; TEMP 98.1; O2SAT 98
--- NOTE | 2024-08-25 18:40 | DVHPNRES ---
Progress Note Date Seen: Aug 25, 2024 Resident Creating Document: BRAULIO RATLIFF RESIDENT Medical Necessity Reason Pt with a Central, PICC or Fol: No Subjective Review of Systems This is a 54-year-old male with past medical history of hypertension, anxiety, alcohol abuse, tobacco use, who presents to the ER with a chief complaint of epigastric abdominal pain the past 3 days. Associated symptoms include nausea and vomiting. Patient reports 1 episode of loose watery diarrhea for the past 2 days. He has been noncompliant with his pantoprazole and Carafate. Reports last drink was 1 week back. Denies illicit drug use. Multiple admission in the past couple of months. He was recently seen in this hospital and was discharged on August 10 with peptic ulcer disease and gastritis. On arrival, patient was hypertensive but otherwise stable. Hemoglobin 10, hematocrit 32. Potassium was low at 3.0. He had lactic acidosis 4.7 which was resolved with IV fluids. CT scan showed concentric thickening throughout the colon likely infectious also inflammatory colitis. Patient was started on IV antibiotics. Past medical history: hypertension, anxiety, alcohol abuse and tobacco use Surgical history: None Social history: Last drink was 7 days back, patient is known alcoholic, smoker, denies illicit drug use Home medications: Noncompliant with his pantoprazole and Carafate. Denies taking other medication Patient seen and examined at the bedside. Has epigastric tenderness. Objective vital signs Vital Sign Date Time Temp Pulse Resp B/P (MAP) Pulse Ox O2 Delivery O2 Flow Rate FiO2 08/25/24 14:17 20 92 163/93 08/25/24 11:42 98.1 98.1 08/25/24 11:00 98 08/25/24 07:20 Room Air* 0 21 Total Intake and Output 08/24/24 08/24/24 08/25/24 15:00 23:00 07:00 Intake Total 1000 ml Balance 1000 ml medications Current Medications Medications Dose Ordered Sig/Rick Route Start Time Stop Time Status Last Admin Dose Admin Ceftriaxone Sodium 50 ml @ 100 mls/hr DAILY@09 IV 08/25/24 09:00 08/25/24 09:22 100 MLS/HR Metronidazole 100 ml @ 100 mls/hr Q8H IV 08/25/24 10:00 08/25/24 10:25 100 MLS/HR Acetaminophen/ Hydrocodone Bitart 1 tab Q4HP PRN PO 08/25/24 03:15 08/25/24 16:15 1 TAB Ondansetron HCl 4 mg Q4HP PRN IV 08/25/24 03:15 08/25/24 09:21 4 MG Acetaminophen 650 mg Q6HP PRN PO 08/25/24 03:15 Pantoprazole Sodium 40 mg DAILY@0600 PO 08/25/24 06:00 08/25/24 06:09 40 MG Sucralfate 1 gm QID@0600,1130,1700,2200 PO 08/25/24 11:30 Morphine Sulfate 2 mg Q6HP PRN IV 08/25/24 10:45 08/25/24 13:32 2 MG Examination Patient lying in bed, in no acute distress General: Well-built, afebrile, mucosae are moist Cardiovascular: Regular S1 and S2. No murmurs, gallops or rubs. No JVD elevation. No pedal edema Respiratory: Normal B/L air entry on room air. Clear lung sounds on auscultation Abdomen: Soft, epigastric tenderness, nondistended, normoactive bowel sounds, no rebound tenderness, no organomegaly, no masses Genitourinary: Deferred MSK/skin: Mobilizes 4 limbs. Skin is dry and warm Neurological: No motor, no sensitive deficits, normal speech. Pupils are isocoric and reactive. Psych/Mental Status: A/Ox3 laboratory and microbiology Laboratory Tests 08/25/24 08:38 Test 08/25/24 08:38 Range/Units Serum Glucose 106 74-106 mg/dL Labs and/or images reviewed: Labs reviewed by me, Image(s) reviewed by me Problem List/Assessment/Plan Problem List/Assessment/Plan Epigastric abdominal pain secondary to colitis, likely infectious etiology Intractable nausea and vomiting Probable peptic ulcer disease Stool studies ordered IV metronidazole and ceftriaxone starting 08/24 IV NS 100 cc an hour GI consulted- Stool for WBC, C Diff and bacterial culture. Protonix 40 mg and Carafate q.i.d. Clear liquid diet Lactic acidosis likely due to dehydration; can not rule out sepsis; on IV antibiotics Resolved Anemia, likely microcytic Stool occult ordered Alcohol use dependence Risk of alcohol withdrawal IV fluids, thiamine and folic administered. Counseled on alcohol use cessation for 17 minutes Hypokalemia Corrected Plan discussed with patient in which all questions have been answered Goals of care discussed with patient for 20 minutes, full code status Case discussed with Dr. Loomis Plan discussed with: Patient, Other (Nurse) My Orders My Orders Orders - BRAULIO RATLIFF Procedure Category Date Status Time Stool Occult Blood LAB 08/25/24 Logged 08:28 Stool Wbc LAB 08/25/24 Logged 08:28 Anca Panel LAB 08/25/24 In Process 08:28 Sucralfate Susp PHA 08/25/24 In Process (Carafate Susp) 11:30 Morphine Sulfate PHA 08/25/24 In Process Injection 10:45 Sodium Chloride 0.9% PHA 08/25/24 In Process 10:45 Addendum Addendum Addendum I was physically present for the hardin portions of the service provided to patient by THE RESIDENT. I have reviewed the documentation, discussed the case with resident and agree with the resident's documentation except as noted. Also the patient's clinical case was discussed with the patient's nurse. This medical document was created using an electronic medical record system with computerized dictation system. Although this document has been carefully reviewed, there might still be some phonetic and typographical errors. These areas are purely typographical due to imperfections of the software programs, and do not reflect any compromise in the patient's medical care. Late signature. Date of Service: Aug 25, 2024 Billing Provider: ALLEN LOOMIS MD Common Visit Codes: [id number] INP/OBS CARE(HIGH) Secondary Visit Codes: 56641-URCOZ CHNG SMOKING >10MIN (Counseled on alcohol use cessation for 17 minutes), 43512-FRVLEEXY CARE PLAN 30 MINUTES (20 minutes) BRAULIO RATLIFF RESIDENT Aug 25, 2024 18:40 ALLEN LOOMIS MD Aug 26, 2024 05:34
[2024-08-25] MEDS: THIAMINE 100mg/ml INJ (200mg/2ml VIAL) IV ONE (19:00)
[2024-08-25] MEDS: FOLIC ACID 1 MG TAB PO ONE (20:05)
[2024-08-25 21:00] VITALS: BP 156/80; PULSE 80; RESP 18; TEMP 97.9; O2SAT 98
[2024-08-26 01:00] VITALS: BP 153/93; PULSE 87; RESP 18; TEMP 97.9; O2SAT 97
[2024-08-26 05:00] VITALS: BP 147/78; PULSE 80; RESP 18; TEMP 97.9; O2SAT 95
[2024-08-26 05:44] LABS: Basophils # (auto) 0 10 ^3/uL (0-0.2); Basophils % (auto) 0.5 % (0.0-2.0); Eosinophils # (auto) 0.2 10 ^3/uL (0-0.8); Eosinophils % (auto) 1.6 % (0.0-7.0); Hematocrit 29.3 % (41.0-53.0); Hemoglobin 9.7 g/dL (13.5-17.5); Lymphocytes # (auto) 1.1 10 ^3/uL (0.4-5.4); Lymphocytes % (auto) 12.4 % (10.0-50.0); Mean Corpuscular Volume 87.9 fL (80.0-100.0); Monocytes # (auto) 0.8 10 ^3/uL (0-1.3); Monocytes % (auto) 8.9 % (0.0-12.0); Neutrophils # (auto) 7.1 10 ^3/uL (1.6-8.6); Neutrophils % (auto) 76.6 % (37.0-80.0); Nucleated Red Blood Cells % 0.1 %; Platelet Count (auto) 387 10^3/uL (140-450); Red Blood Cells 3.34 10^6/uL (4.5-5.90); White Blood Cell 9.2 10^3/uL (4.4-10.8)
[2024-08-26 06:03] LABS: Albumin 4.2 g/dL (3.2-4.8); Alkaline Phosphatase 62 U/L (46-116); Anion Gap 6 (5-15); Aspartate Aminotransferase 13 U/L (13-40); Bilirubin, Total 0.3 mg/dL (0.2-1.0); Calcium 9.1 mg/dL (8.7-10.4); Carbon Dioxide 25 mmol/L (20-31); Magnesium 1.9 mg/dL (1.6-2.6); Sodium 140 mmol/L (136-145); Total Protein 6.4 g/dL (5.7-8.2)
[2024-08-26 06:20] LABS: Alanine Aminotransferase < 9 U/L (7-40); BUN/Creatinine Ratio 7.9 (10.0-20.0); Blood Urea Nitrogen < 5 mg/dL (9-23); Chloride 109 mmol/L (98-107); Glucose 115 mg/dL (74-106)
[2024-08-26 09:02] VITALS: BP 146/83; PULSE 72; RESP 17; TEMP 97.9; O2SAT 95
[2024-08-26] MEDS: FOLIC ACID 1 MG TAB PO SCH (10:00)
[2024-08-26] MEDS: POTASSIUM EFFERVESENT TAB 25 MEQ PO ONE (10:15)
[2024-08-26] MEDS: POTASSIUM CHLORIDE 60 MEQ, LIDOCAINE 1% (LOCAL ANESTH.) 6 ML in SODIUM CHL 0.9% 500 ML IV ONE (10:15)
--- NOTE | 2024-08-26 10:17 | DVHPN2 ---
Subjective Decreasing abdominal pain Reviewed: Care Plan, H&P, Labs, Medications, Previous Orders, Radiology, Other (Consultation) Changes from previous H/P or p: Changes Objective Vitals Vital Signs Date Time Temp Pulse Resp B/P (MAP) Pulse Ox O2 Delivery O2 Flow Rate FiO2 08/26/24 09:02 97.9 72 17 146/83 (104) 95 97.9 08/25/24 18:40 Room Air* 0 21 Intake/Output Intake and Output 08/26/24 06:59 Intake Total 850 ml Output Total 950 ml Balance -100 ml Intake Oral 500 ml IV Total 350 ml Output Urine Total 950 ml General Appearance: Alert, Oriented X3, Cooperative, No acute distress HEENT: Atraumatic Lungs: Clear to auscultation, Normal air movement Cardiovascular: Regular rate, Normal S1, Normal S2, No murmurs Abdomen: Normal bowel sounds, Soft, Other (Mild diffuse tenderness) Extremities: No edema Neuro: Normal speech, Cranial nerves 3-12 NL Psych/Mental Status: Mental status NL, Mood NL Medications Current Medications Medications Dose Ordered Sig/Rick Route Start Time Stop Time Status Last Admin Dose Admin Ceftriaxone Sodium 50 ml @ 100 mls/hr DAILY@09 IV 08/25/24 09:00 08/26/24 10:00 100 MLS/HR Metronidazole 100 ml @ 100 mls/hr Q8H IV 08/25/24 10:00 08/26/24 10:00 100 MLS/HR Acetaminophen/ Hydrocodone Bitart 1 tab Q4HP PRN PO 08/25/24 03:15 08/26/24 09:59 1 TAB Ondansetron HCl 4 mg Q4HP PRN IV 08/25/24 03:15 08/25/24 21:25 4 MG Acetaminophen 650 mg Q6HP PRN PO 08/25/24 03:15 Pantoprazole Sodium 40 mg DAILY@0600 PO 08/25/24 06:00 08/26/24 05:06 40 MG Sucralfate 1 gm QID@0600,1130,1700,2200 PO 08/25/24 11:30 Morphine Sulfate 2 mg Q6HP PRN IV 08/25/24 10:45 08/26/24 05:09 2 MG Folic Acid 1 mg DAILY PO 08/26/24 10:00 08/26/24 10:00 1 MG Laboratory Results Laboratory Tests 08/26/24 04:33 Chemistry Test 08/26/24 04:33 Albumin 4.2 g/dL (3.2-4.8) Calcium Level 9.1 mg/dL (8.7-10.4) Magnesium Level 1.9 mg/dL (1.6-2.6) Total Protein 6.4 g/dL (5.7-8.2) LFT Test 08/26/24 04:33 Alanine Aminotransferase (ALT) < 9 U/L (7-40) Alkaline Phosphatase 62 U/L (46-116) Aspartate Amino Transferase (AST) 13 U/L (13-40) Total Bilirubin 0.3 mg/dL (0.2-1.0) Urinalysis Test 08/25/24 16:00 Urine Color Light-yellow (Yellow) Urine Clarity Clear (Clear) Urine pH 6.5 (5.0-9.0) Urine Specific [place] 1.016 (1.001-1.035) Urine Protein Negative (Negative) Urine Ketones Negative (Negative) Urine Blood Negative /uL (Negative) Urine Nitrite Negative (Negative) Urine Bilirubin Negative (Negative) Urine Urobilinogen Normal mg/dL (Negative) Urine Leukocyte Esterase Negative /uL (Negative) Urine RBC None seen /hpf (0 - 3) Urine Microscopic WBC 1 /HPF (0-3) Urine Squamous Epithelial Cells Few /hpf (<5) Urine Bacteria None seen /hpf (None Seen) Urine Glucose Normal mg/dL (Normal) Labs and/or images reviewed: Labs reviewed by me, Image(s) reviewed by me Assessment/Plan Assessment/Plan Covering: #Abdominal pain with nausea and vomiting; suspected colitis versus alcohol intoxication/chronic alcoholism; will continue IV antibiotics for now; reviewed available results of the septic workup including cultures and stool workup; will advance diet as per GI; continue antiemetic and pain management as indicated; GI is following; continue monitoring #Lactic acidosis; most likely due to dehydration; but can not rule out sepsis; continue IV fluids along with IV antibiotics; more details as above; continue monitoring #JANUARY in the setting of dehydration; can not rule out VMN; avoid nephrotoxic agents; continue IV fluids; continue monitoring #Hypokalemia due to GI losses; replace electrolytes as indicated; ordered morning magnesium level; continue monitoring #Severe alcohol use disorder; counseled on alcohol use cessation; continue folic acid and thiamine; continue monitoring #Tobacco use disorder; counseled on tobacco use cessation for 15 minutes; refused nicotine patch; continue monitoring #Normocytic anemia; no signs/symptoms of active bleeding; GI is following; continue monitoring Late Entry. This medical document was created using an electronic medical record system with computerized dictation system. Although this document has been carefully reviewed, there might still be some phonetic and typographical errors. These areas are purely typographical due to imperfections of the software programs, and do not reflect any compromise in the patient's medical care. Plan discussed with: Patient, Other (Nurse) Date of Service: Aug 26, 2024 Billing Provider: ALLEN LOOMIS MD Common Visit Codes: [id number] INP/OBS CARE(HIGH) Secondary Visit Codes: 48547-[id number] CHNG SMOKING >10MIN (15 minutes) ALLEN LOOMIS MD Aug 26, 2024 10:17
[2024-08-26 12:57] VITALS: BP 123/63; PULSE 79; RESP 17; TEMP 98.4; O2SAT 99
[2024-08-26 17:32] VITALS: BP 131/76; PULSE 70; RESP 17; TEMP 98.5; O2SAT 97
--- NOTE | 2024-08-26 18:19 | DVHPN2 ---
Progress Note - Dictate Date Seen: Aug 26, 2024 Medical Necessity Reason Pt with a Central, PICC or Fol: No Subjective Patient seen at bedside, he is resting comfortably Patient denies any diarrhea in fact he has not had a bowel to turn in any stool samples He still complains of some lower abdominal cramping Patient states he has had a previous endoscopies but no colonoscopy Patient drinks alcohol moderately vital signs Vital Sign Date Time Temp Pulse Resp B/P (MAP) Pulse Ox O2 Delivery O2 Flow Rate FiO2 08/26/24 17:32 98.5 70 17 131/76 (94) 97 98.5 08/26/24 08:00 Room Air* 0 21 Total Intake and Output 08/25/24 08/25/24 08/26/24 15:00 23:00 07:00 Intake Total 150 ml 100 ml 600 ml Output Total 950 ml Balance 150 ml 100 ml -350 ml medications Current Medications Medications Dose Ordered Sig/Rick Route Start Time Stop Time Status Last Admin Dose Admin Ceftriaxone Sodium 50 ml @ 100 mls/hr DAILY@09 IV 08/25/24 09:00 08/26/24 10:00 100 MLS/HR Metronidazole 100 ml @ 100 mls/hr Q8H IV 08/25/24 10:00 08/26/24 18:05 100 MLS/HR Acetaminophen/ Hydrocodone Bitart 1 tab Q4HP PRN PO 08/25/24 03:15 08/26/24 18:04 1 TAB Ondansetron HCl 4 mg Q4HP PRN IV 08/25/24 03:15 08/25/24 21:25 4 MG Acetaminophen 650 mg Q6HP PRN PO 08/25/24 03:15 Pantoprazole Sodium 40 mg DAILY@0600 PO 08/25/24 06:00 08/26/24 05:06 40 MG Sucralfate 1 gm QID@0600,1130,1700,2200 PO 08/25/24 11:30 08/26/24 18:03 1 GM Morphine Sulfate 2 mg Q6HP PRN IV 08/25/24 10:45 08/26/24 14:29 2 MG Folic Acid 1 mg DAILY PO 08/26/24 10:00 08/26/24 10:00 1 MG objective General: NAD, AAOX3 Chest: lung brumfield clear to auscultation Heart: RRR, no murmur Abdomen: non-distended, mild periumbilical tenderness to palpation, +BS laboratory and microbiology Laboratory Tests 08/26/24 04:33 Test 08/26/24 04:33 Range/Units Serum Glucose 115 H 74-106 mg/dL Problems(with codes): (1) Alcohol abuse (2) Abdominal pain Prognosis Plan Advance to soft mechanical diet I believe the circumferential thickening noted on the colon is likely related to colonic wall edema from his chronic alcoholism Patient is not having any symptoms of diarrhea or bleeding at this time which points against colitis Discharge planning as per hospitalist Patient was given my contact information to follow up in my office as an outpatient for elective colonoscopy Plan discussed with: Patient, Other (Nurse) KATHY LOPEZ MD Aug 26, 2024 18:19
[2024-08-26 21:00] VITALS: BP 126/66; PULSE 85; RESP 18; TEMP 98.1; O2SAT 98
[2024-08-26] MEDS: THIAMINE HCL 100 MG TAB PO ONE (21:33)
[2024-08-27] VITALS (7 sets, daily range): BP systolic 99–152; BP diastolic 63–82; PULSE 67–80; RESP 16–20; TEMP 97.7–98.1; O2SAT 93–97
[2024-08-27 07:50] LABS: Basophils # (auto) 0 10 ^3/uL (0-0.2); Basophils % (auto) 0.8 % (0.0-2.0); Eosinophils # (auto) 0.2 10 ^3/uL (0-0.8); Hematocrit 28.7 % (41.0-53.0); Hemoglobin 9.6 g/dL (13.5-17.5); Lymphocytes # (auto) 2.1 10 ^3/uL (0.4-5.4); Mean Corpuscular Hemoglobin 29.3 pg (28.0-32.0); Mean Corpuscular Hgb Conc. 33.3 g/dL (32.0-36.0); Mean Corpuscular Volume 87.9 fL (80.0-100.0); Monocytes # (auto) 0.7 10 ^3/uL (0-1.3); Monocytes % (auto) 12.9 % (0.0-12.0); Neutrophils # (auto) 2.3 10 ^3/uL (1.6-8.6); Neutrophils % (auto) 43.3 % (37.0-80.0); Nucleated Red Blood Cells % 0.1 %; Platelet Count (auto) 432 10^3/uL (140-450); Red Blood Cells 3.27 10^6/uL (4.5-5.90); Red Cell Distribution Width 18.2 % (11.8-14.3); White Blood Cell 5.2 10^3/uL (4.4-10.8)
[2024-08-27 08:03] LABS: Chloride 107 mmol/L (98-107); Potassium 3.6 mmol/L (3.5-5.1); Sodium 142 mmol/L (136-145)
[2024-08-27 08:04] LABS: Anion Gap 7 (5-15); Calcium 9.1 mg/dL (8.7-10.4); Carbon Dioxide 28 mmol/L (20-31)
[2024-08-27 08:09] LABS: BUN/Creatinine Ratio 11.8 (10.0-20.0)
[2024-08-27 08:10] LABS: Magnesium 1.8 mg/dL (1.6-2.6)
[2024-08-27 08:15] LABS: Blood Urea Nitrogen 9 mg/dL (9-23); Glucose 108 mg/dL (74-106)
--- NOTE | 2024-08-27 09:11 | CODING ---
ALLEN LOOMIS MD Aug 27, 2024 09:11
--- NOTE | 2024-08-27 09:11 | DVHPN2 ---
Subjective Decreasing abdominal pain Reviewed: Care Plan, H&P, Labs, Medications, Previous Orders, Radiology, Other (Consultation) Changes from previous H/P or p: Changes Objective Vitals Vital Signs Date Time Temp Pulse Resp B/P (MAP) Pulse Ox O2 Delivery O2 Flow Rate FiO2 08/27/24 05:00 97.8 74 18 122/67 (85) 95 97.8 08/26/24 20:00 Room Air* 0 21 Intake/Output Intake and Output 08/27/24 07:00 Intake Total 750 ml Output Total 925 ml Balance -175 ml Intake Oral 550 ml IV Total 200 ml Output Urine Total 925 ml General Appearance: Alert, Oriented X3, Cooperative, No acute distress HEENT: Atraumatic Lungs: Clear to auscultation, Normal air movement Cardiovascular: Regular rate, Normal S1, Normal S2, No murmurs Abdomen: Normal bowel sounds, Soft, Other (Mild diffuse tenderness) Extremities: No edema Neuro: Normal speech, Cranial nerves 3-12 NL Psych/Mental Status: Mental status NL, Mood NL Medications Current Medications Medications Dose Ordered Sig/Rick Route Start Time Stop Time Status Last Admin Dose Admin Ceftriaxone Sodium 50 ml @ 100 mls/hr DAILY@09 IV 08/25/24 09:00 08/26/24 10:00 100 MLS/HR Metronidazole 100 ml @ 100 mls/hr Q8H IV 08/25/24 10:00 08/27/24 01:11 100 MLS/HR Acetaminophen/ Hydrocodone Bitart 1 tab Q4HP PRN PO 08/25/24 03:15 08/27/24 01:12 1 TAB Ondansetron HCl 4 mg Q4HP PRN IV 08/25/24 03:15 08/25/24 21:25 4 MG Acetaminophen 650 mg Q6HP PRN PO 08/25/24 03:15 Pantoprazole Sodium 40 mg DAILY@0600 PO 08/25/24 06:00 08/27/24 06:23 40 MG Sucralfate 1 gm QID@0600,1130,1700,2200 PO 08/25/24 11:30 08/27/24 06:23 1 GM Morphine Sulfate 2 mg Q6HP PRN IV 08/25/24 10:45 08/26/24 21:34 2 MG Folic Acid 1 mg DAILY PO 08/26/24 10:00 08/26/24 10:00 1 MG Thiamine HCl 100 mg DAILY PO 08/27/24 10:00 Laboratory Results Laboratory Tests 08/27/24 07:12 Chemistry Test 08/27/24 07:12 Calcium Level 9.1 mg/dL (8.7-10.4) Magnesium Level 1.8 mg/dL (1.6-2.6) Urinalysis Test 08/25/24 16:00 Urine Color Light-yellow (Yellow) Urine Clarity Clear (Clear) Urine pH 6.5 (5.0-9.0) Urine Specific [place] 1.016 (1.001-1.035) Urine Protein Negative (Negative) Urine Ketones Negative (Negative) Urine Blood Negative /uL (Negative) Urine Nitrite Negative (Negative) Urine Bilirubin Negative (Negative) Urine Urobilinogen Normal mg/dL (Negative) Urine Leukocyte Esterase Negative /uL (Negative) Urine RBC None seen /hpf (0 - 3) Urine Microscopic WBC 1 /HPF (0-3) Urine Squamous Epithelial Cells Few /hpf (<5) Urine Bacteria None seen /hpf (None Seen) Urine Glucose Normal mg/dL (Normal) Labs and/or images reviewed: Labs reviewed by me, Image(s) reviewed by me Assessment/Plan Assessment/Plan Covering: #Abdominal pain with nausea and vomiting; suspected colitis versus alcohol intoxication/chronic alcoholism; will continue IV antibiotics for now; reviewed available results of the septic workup including cultures and stool workup; will advance diet as per GI; continue antiemetic and pain management as indicated; GI is following; continue monitoring #Lactic acidosis; most likely due to dehydration; but can not rule out sepsis; continue IV fluids along with IV antibiotics; more details as above; continue monitoring #JANUARY in the setting of dehydration; can not rule out VMN; avoid nephrotoxic agents; continue IV fluids; continue monitoring #Hypokalemia due to GI losses; replace electrolytes as indicated; normal morning magnesium level; continue monitoring #Severe alcohol use disorder; counseled on alcohol use cessation; continue folic acid and thiamine; continue monitoring #Tobacco use disorder; counseled on tobacco use cessation; refused nicotine patch; continue monitoring #Normocytic anemia; no signs/symptoms of active bleeding; GI is following; continue monitoring Late Entry. This medical document was created using an electronic medical record system with computerized dictation system. Although this document has been carefully reviewed, there might still be some phonetic and typographical errors. These areas are purely typographical due to imperfections of the software programs, and do not reflect any compromise in the patient's medical care. Plan discussed with: Patient, Other (Nurse) My Orders Orders - ALLEN LOOMIS MD Procedure Category Date Status Time Thiamine Tab [facility] 08/27/24 In Process 10:00 Date of Service: Aug 27, 2024 Billing Provider: ALLEN LOOMIS MD Common Visit Codes: [id number] INP/OBS CARE(HIGH) ALLEN LOOMIS MD Aug 27, 2024 09:11
[2024-08-27] MEDS: THIAMINE HCL 100 MG TAB PO SCH (09:46)
[2024-08-27 16:07] LABS: Antimyeloperoxidase (MPO) Ab <0.2 units (0.0-0.9); Antiproteinase 3 (PR-3) Ab 1.6 units (0.0-0.9)
[2024-08-27 20:07] LABS: Cytoplasmic (C-ANCA) <1:20 titer (Neg:<1:20); Perinuclear (P-ANCA) <1:20 titer (Neg:<1:20)
--- NOTE | 2024-08-27 21:37 | DVHPN2 ---
Progress Note - Dictate Date Seen: Aug 27, 2024 Medical Necessity Reason Pt with a Central, PICC or Fol: No Subjective Patient seen at bedside, he is resting comfortably Patient is feeling better and abdominal pain is improved Patient denies any diarrhea in fact he has not had a bowel to turn in any stool samples Patient states he has had a previous endoscopies but no colonoscopy Patient drinks alcohol moderately vital signs Vital Sign Date Time Temp Pulse Resp B/P (MAP) Pulse Ox O2 Delivery O2 Flow Rate FiO2 08/27/24 21:01 98.1 77 20 142/77 (98) 97 98.1 08/27/24 20:00 Room Air* 0 21 Total Intake and Output 08/26/24 08/26/24 08/27/24 15:00 23:00 07:00 Intake Total 500 ml 250 ml Output Total 800 ml 125 ml Balance -300 ml 125 ml medications Current Medications Medications Dose Ordered Sig/Rick Route Start Time Stop Time Status Last Admin Dose Admin Ceftriaxone Sodium 50 ml @ 100 mls/hr DAILY@09 IV 08/25/24 09:00 08/27/24 09:46 100 MLS/HR Metronidazole 100 ml @ 100 mls/hr Q8H IV 08/25/24 10:00 08/27/24 17:00 100 MLS/HR Acetaminophen/ Hydrocodone Bitart 1 tab Q4HP PRN PO 08/25/24 03:15 08/27/24 01:12 1 TAB Ondansetron HCl 4 mg Q4HP PRN IV 08/25/24 03:15 08/25/24 21:25 4 MG Acetaminophen 650 mg Q6HP PRN PO 08/25/24 03:15 Pantoprazole Sodium 40 mg DAILY@0600 PO 08/25/24 06:00 08/27/24 06:23 40 MG Sucralfate 1 gm QID@0600,1130,1700,2200 PO 08/25/24 11:30 08/27/24 21:10 1 GM Morphine Sulfate 2 mg Q6HP PRN IV 08/25/24 10:45 08/26/24 21:34 2 MG Folic Acid 1 mg DAILY PO 08/26/24 10:00 08/27/24 09:55 1 MG Thiamine HCl 100 mg DAILY PO 08/27/24 10:00 08/27/24 09:46 100 MG objective General: NAD, AAOX3 Chest: lung brumfield clear to auscultation Heart: RRR, no murmur Abdomen: non-distended, mild periumbilical tenderness to palpation, +BS laboratory and microbiology Laboratory Tests 08/27/24 07:12 Test 08/27/24 07:12 Range/Units Serum Glucose 108 H 74-106 mg/dL Prognosis Plan Advance to soft mechanical diet I believe the circumferential thickening noted on the colon is likely related to colonic wall edema from his chronic alcoholism Patient is not having any symptoms of diarrhea or bleeding at this time which points against colitis Discharge planning as per hospitalist Patient was given my contact information to follow up in my office as an outpatient for elective colonoscopy in 4-6 weeks Dietary Evaluation Review Comments: Recommend alcohol rehab and counseling for smoking cessation. Expected Outcomes/Goals: improved health, gradual wt gain Plan discussed with: Patient KATHY LOPEZ MD Aug 27, 2024 21:37
[2024-08-28 00:53] VITALS: BP 139/79; PULSE 69; RESP 20; TEMP 97.4; O2SAT 97
[2024-08-28 05:00] VITALS: BP 118/69; PULSE 74; RESP 20; TEMP 98; O2SAT 96
--- NOTE | 2024-08-28 05:09 | DVHPN2 ---
Subjective Almost no abdominal pain Reviewed: Care Plan, H&P, Labs, Medications, Previous Orders, Radiology, Other (Consultation) Changes from previous H/P or p: Changes Objective Vitals Vital Signs Date Time Temp Pulse Resp B/P (MAP) Pulse Ox O2 Delivery O2 Flow Rate FiO2 08/28/24 00:53 97.4 69 20 139/79 (99) 97 97.4 08/27/24 20:00 Room Air* 0 21 Intake/Output Intake and Output 08/28/24 07:00 Intake Total 850 ml Output Total 1000 ml Balance -150 ml Intake Oral 600 ml IV Total 250 ml Output Urine Total 1000 ml # Voids 4 # Bowel Movements 4 General Appearance: Alert, Oriented X3, Cooperative, No acute distress HEENT: Atraumatic Lungs: Clear to auscultation, Normal air movement Cardiovascular: Regular rate, Normal S1, Normal S2, No murmurs Abdomen: Normal bowel sounds, Soft, No tenderness Extremities: No edema Neuro: Normal speech, Cranial nerves 3-12 NL Psych/Mental Status: Mental status NL, Mood NL Medications Current Medications Medications Dose Ordered Sig/Rick Route Start Time Stop Time Status Last Admin Dose Admin Ceftriaxone Sodium 50 ml @ 100 mls/hr DAILY@09 IV 08/25/24 09:00 08/27/24 09:46 100 MLS/HR Metronidazole 100 ml @ 100 mls/hr Q8H IV 08/25/24 10:00 08/28/24 01:41 100 MLS/HR Acetaminophen/ Hydrocodone Bitart 1 tab Q4HP PRN PO 08/25/24 03:15 08/27/24 01:12 1 TAB Ondansetron HCl 4 mg Q4HP PRN IV 08/25/24 03:15 08/25/24 21:25 4 MG Acetaminophen 650 mg Q6HP PRN PO 08/25/24 03:15 Pantoprazole Sodium 40 mg DAILY@0600 PO 08/25/24 06:00 08/27/24 06:23 40 MG Sucralfate 1 gm QID@0600,1130,1700,2200 PO 08/25/24 11:30 08/27/24 21:10 1 GM Morphine Sulfate 2 mg Q6HP PRN IV 08/25/24 10:45 08/26/24 21:34 2 MG Folic Acid 1 mg DAILY PO 08/26/24 10:00 08/27/24 09:55 1 MG Thiamine HCl 100 mg DAILY PO 08/27/24 10:00 08/27/24 09:46 100 MG Laboratory Results Laboratory Tests 08/27/24 07:12 Chemistry Test 08/27/24 07:12 Calcium Level 9.1 mg/dL (8.7-10.4) Magnesium Level 1.8 mg/dL (1.6-2.6) Urinalysis Test 08/25/24 16:00 Urine Color Light-yellow (Yellow) Urine Clarity Clear (Clear) Urine pH 6.5 (5.0-9.0) Urine Specific [place] 1.016 (1.001-1.035) Urine Protein Negative (Negative) Urine Ketones Negative (Negative) Urine Blood Negative /uL (Negative) Urine Nitrite Negative (Negative) Urine Bilirubin Negative (Negative) Urine Urobilinogen Normal mg/dL (Negative) Urine Leukocyte Esterase Negative /uL (Negative) Urine RBC None seen /hpf (0 - 3) Urine Microscopic WBC 1 /HPF (0-3) Urine Squamous Epithelial Cells Few /hpf (<5) Urine Bacteria None seen /hpf (None Seen) Urine Glucose Normal mg/dL (Normal) Labs and/or images reviewed: Labs reviewed by me, Image(s) reviewed by me Assessment/Plan Assessment/Plan Covering: #Abdominal pain with nausea and vomiting; suspected colitis versus alcohol intoxication/chronic alcoholism; received IV antibiotics as inpatient; reviewed available results of the septic workup including cultures and stool workup; tolerating well regular diet; continue antiemetic and pain management as indicated; evaluated and followed by GI as inpatient; will follow up with GI as outpatient for colonoscopy #Lactic acidosis; most likely due to dehydration; but can not rule out sepsis; received IV fluids along with IV antibiotics; will follow up with discharge clinic or primary care provider within one week #JANUARY in the setting of dehydration; can not rule out VMN; avoid nephrotoxic agents; received IV fluids; resolved; will follow up with discharge clinic or primary care provider within one week #Hypokalemia due to GI losses; corrected; will follow up with discharge clinic or primary care provider within one week #Severe alcohol use disorder; counseled on alcohol use cessation; received folic acid and thiamine; will follow up with discharge clinic or primary care provider within one week #Tobacco use disorder; counseled on tobacco use cessation; refused nicotine patch; will follow up with discharge clinic or primary care provider within one week #Normocytic anemia; no signs/symptoms of active bleeding; GI is following; will follow up with the primary care provider or discharge clinic within one week Late Entry. This medical document was created using an electronic medical record system with computerized dictation system. Although this document has been carefully reviewed, there might still be some phonetic and typographical errors. These areas are purely typographical due to imperfections of the software programs, and do not reflect any compromise in the patient's medical care. Plan discussed with: Patient, Other (Nurse) My Orders Orders - ALLEN LOOMIS MD Procedure Category Date Status Time Basic Metabolic Panel LAB 08/28/24 Logged 04:00 Date of Service: Aug 28, 2024 Billing Provider: ALLEN LOOMIS MD Common Visit Codes: [id number] INP/OBS CARE(MOD) ALLEN LOOMIS MD Aug 28, 2024 05:09
[2024-08-28 06:47] LABS: Anion Gap 6 (5-15); Calcium 8.9 mg/dL (8.7-10.4); Carbon Dioxide 28 mmol/L (20-31); Sodium 143 mmol/L (136-145)
[2024-08-28 06:48] LABS: Chloride 109 mmol/L (98-107); Potassium 3.3 mmol/L (3.5-5.1)
[2024-08-28 06:53] LABS: BUN/Creatinine Ratio 24.6 (10.0-20.0); Blood Urea Nitrogen 16 mg/dL (9-23); Glucose 93 mg/dL (74-106)
[2024-08-28 09:00] VITALS: BP 130/86; PULSE 84; RESP 16; TEMP 98.6; O2SAT 96
[2024-08-28 13:00] VITALS: BP 144/83; PULSE 70; RESP 16; TEMP 98.7; O2SAT 99
[2024-08-28] MEDS ORDERED: AUG875T PO (13:26)
[2024-08-28] MEDS ORDERED: METR-344 PO (13:26)
--- NOTE | 2024-08-28 13:29 | DVHDS2 ---
Discharge Summary Date of Admission Aug 25, 2024 at 03:15 Date of Discharge: Aug 28, 2024 Admitting Diagnosis Abdominal pain with nausea and vomiting Labs/Diagnostic Data: Laboratory Results Test 08/28/24 04:34 08/27/24 07:12 08/26/24 04:33 08/25/24 16:00 Sodium Level 143 mmol/L (136-145) Potassium Level 3.3 mmol/L (3.5-5.1) Chloride Level 109 mmol/L (98-107) Carbon Dioxide Level 28 mmol/L (20-31) Anion Gap 6 (5-15) Blood Urea Nitrogen 16 mg/dL (9-23) Creatinine 0.65 mg/dL (0.700-1.30) Glomerular Filtration Rate Calc 112 mL/min (>90) BUN/Creatinine Ratio 24.6 (10.0-20.0) Serum Glucose 93 mg/dL (74-106) Calcium Level 8.9 mg/dL (8.7-10.4) White Blood Count 5.2 10^3/uL (4.4-10.8) Red Blood Count 3.27 10^6/uL (4.5-5.90) Hemoglobin 9.6 g/dL (13.5-17.5) Hematocrit 28.7 % (41.0-53.0) Mean Corpuscular Volume 87.9 fL (80.0-100.0) Mean Corpuscular Hemoglobin 29.3 pg (28.0-32.0) Mean Corpuscular Hemoglobin Concent 33.3 g/dL (32.0-36.0) Red Cell Distribution Width 18.2 % (11.8-14.3) Platelet Count 432 10^3/uL (140-450) Mean Platelet Volume 7.4 fL (6.9-10.8) Neutrophils (%) (Auto) 43.3 % (37.0-80.0) Lymphocytes (%) (Auto) 40.0 % (10.0-50.0) Monocytes (%) (Auto) 12.9 % (0.0-12.0) Eosinophils (%) (Auto) 3.0 % (0.0-7.0) Basophils (%) (Auto) 0.8 % (0.0-2.0) Neutrophils # (Auto) 2.3 10 ^3/uL (1.6-8.6) Lymphocytes # (Auto) 2.1 10 ^3/uL (0.4-5.4) Monocytes # (Auto) 0.7 10 ^3/uL (0-1.3) Eosinophils # (Auto) 0.2 10 ^3/uL (0-0.8) Basophils # (Auto) 0 10 ^3/uL (0-0.2) Nucleated Red Blood Cells 0.1 % Magnesium Level 1.8 mg/dL (1.6-2.6) Total Bilirubin 0.3 mg/dL (0.2-1.0) Aspartate Amino Transferase (AST) 13 U/L (13-40) Alanine Aminotransferase (ALT) < 9 U/L (7-40) Alkaline Phosphatase 62 U/L (46-116) Total Protein 6.4 g/dL (5.7-8.2) Albumin 4.2 g/dL (3.2-4.8) Urine Color Light-yellow (Yellow) Urine Clarity Clear (Clear) Urine pH 6.5 (5.0-9.0) Urine Specific [place] 1.016 (1.001-1.035) Urine Protein Negative (Negative) Urine Ketones Negative (Negative) Urine Blood Negative /uL (Negative) Urine Nitrite Negative (Negative) Urine Bilirubin Negative (Negative) Urine Urobilinogen Normal mg/dL (Negative) Urine Leukocyte Esterase Negative /uL (Negative) Urine RBC None seen /hpf (0 - 3) Urine Microscopic WBC 1 /HPF (0-3) Urine Squamous Epithelial Cells Few /hpf (<5) Urine Bacteria None seen /hpf (None Seen) Urine Glucose Normal mg/dL (Normal) Urine Opiates Screen Pos (NEGATIVE) Urine Fentanyl Screen Pos (NEGATIVE) Urine Barbiturates Screen Neg (NEGATIVE) Urine Phencyclidine Screen Neg (NEGATIVE) Urine Amphetamines Screen Neg (NEGATIVE) Urine Benzodiazepines Screen Neg (NEGATIVE) Urine Cocaine Screen Neg (NEGATIVE) Urine Cannabinoids Screen Neg (NEGATIVE) Test 08/25/24 08:38 08/25/24 01:22 08/24/24 23:24 Prothrombin Time 9.9 sec (9.3-11.8) Prothrombin Time INR 0.93 (0.9-1.15) Activated Partial Thromboplast Time 25.1 SEC (24.5-34.5) Vitamin B12 Level 323 pg/mL (211-911) Vitamin D 25-Hydroxy 35.8 ng/mL (30.0-100) Folic Acid 18.72 ng/mL (>5.38) Thyroid Stimulating Hormone (TSH) 1.10 uIU/mL (0.55-4.78) Cytoplasmic ANCA (c-ANCA) Antibody <1:20 titer (Neg:<1:20) Anti-Proteinase 3 (c-ANCA) 1.6 units (0.0-0.9) Atypical p-ANCA <1:20 titer (Neg:<1:20) Perinuclear ANCA (p-ANCA) Antibody <1:20 titer (Neg:<1:20) Myeloperoxidase Antibody <0.2 units (0.0-0.9) Lactic Acid Level 1.1 mmol/L (0.4-2.0) Lipase 25 U/L (12-53) Other Laboratory Tests 08/28/24 04:34 08/27/24 07:12 Brief Hx & Hospital Course: Covering: A 54-year-old male patient; with multiple comorbidities who presented to the emergency department with abdominal pain along with nausea and vomiting. Details as below: #Abdominal pain with nausea and vomiting; suspected colitis versus alcohol intoxication/chronic alcoholism; received IV antibiotics as inpatient; reviewed available results of the septic workup including cultures and stool workup; tolerating well regular diet; continue antiemetic and pain management as indicated; evaluated and followed by GI as inpatient; will follow up with GI as outpatient for colonoscopy; discharged on oral antibiotics #Lactic acidosis; most likely due to dehydration; but can not rule out sepsis; received IV fluids along with IV antibiotics; will follow up with discharge clinic or primary care provider within one week; discharged on oral antibiotics #JANUARY in the setting of dehydration; can not rule out VMN; avoid nephrotoxic agents; received IV fluids; resolved; will follow up with discharge clinic or primary care provider within one week #Hypokalemia due to GI losses; corrected with multiple replacements; normal magnesium level; will follow up with discharge clinic or primary care provider within one week #Severe alcohol use disorder; counseled on alcohol use cessation; received folic acid and thiamine; will follow up with discharge clinic or primary care provider within one week #Tobacco use disorder; counseled on tobacco use cessation; refused nicotine patch; will follow up with discharge clinic or primary care provider within one week #Normocytic anemia; no signs/symptoms of active bleeding; GI is following; will follow up with the primary care provider or discharge clinic within one week Late Entry. This medical document was created using an electronic medical record system with computerized dictation system. Although this document has been carefully reviewed, there might still be some phonetic and typographical errors. These areas are purely typographical due to imperfections of the software programs, and do not reflect any compromise in the patient's medical care. Consults/Reason for consult GI for abdominal pain/nausea/vomiting Condition at Discharge: Stable Final Diagnosis/Problems List #Abdominal pain with nausea and vomiting; suspected colitis versus alcohol intoxication/chronic alcoholism Rest of diagnoses as above Discharge Disposition: Home Discharge Instruct/Medications Diet: Regular Diet comment: Activity: No Restrictions, As Tolerated Follow Up/Referral: Discharge/Continuity clinic on Saturday08/31/2024 or primary care provider within one week; GI for colonoscopy in 2 to 4 weeks Medications: Oral antibiotics for 5 day Discharge Statement: "Patient was advised to return to the ER or call 911 if any headaches, dizziness, shortness of breath, chest pain, abdominal pain, bleeding, fevers, or worsening of medical condition. Patient was counseled about treatment plan, medications, possible side effects, patientverbalized understanding. All questions were answered to the best of my ability. This discharge took greater then 30 minutes in planning, reviewing documentation, counseling the patient, and discussing with other team members." ASSESSMENT ASSESSMENT Assessment #Abdominal pain with nausea and vomiting; suspected colitis versus alcohol intoxication/chronic alcoholism Date of Service: Aug 28, 2024 Billing Provider: ALLEN LOOMIS MD Common Visit Codes: 48942-NQL/[id number] DISCH DAY >30min ALLEN LOOMIS MD Aug 28, 2024 13:29
[2024-08-28 13:46] VITALS: BP 130/86; PULSE 84; RESP 16; TEMP 37; O2SAT 96
--- NOTE | 2024-08-28 15:13 | DVHPN2 ---
Progress Note - Dictate Date Seen: Aug 28, 2024 Medical Necessity Reason Pt with a Central, PICC or Fol: No Subjective Patient seen at bedside, he is resting comfortably Patient is feeling better and abdominal pain is improved Patient denies any diarrhea in fact he has not had a bowel to turn in any stool samples Patient states he has had a previous endoscopies but no colonoscopy Patient drinks alcohol moderately vital signs Vital Sign Date Time Temp Pulse Resp B/P (MAP) Pulse Ox O2 Delivery O2 Flow Rate FiO2 08/28/24 13:46 37.0 84 16 96 08/28/24 13:00 144/83 (103) 08/28/24 07:55 Room Air* 0 21 Total Intake and Output 08/27/24 08/27/24 08/28/24 15:00 23:00 07:00 Intake Total 850 ml 300 ml Output Total 1000 ml Balance -150 ml 300 ml medications Current Medications Medications Dose Ordered Sig/Rick Route Start Time Stop Time Status Last Admin Dose Admin Ceftriaxone Sodium 50 ml @ 100 mls/hr DAILY@09 IV 08/25/24 09:00 08/28/24 10:10 100 MLS/HR Metronidazole 100 ml @ 100 mls/hr Q8H IV 08/25/24 10:00 08/28/24 10:10 100 MLS/HR Acetaminophen/ Hydrocodone Bitart 1 tab Q4HP PRN PO 08/25/24 03:15 08/27/24 01:12 1 TAB Ondansetron HCl 4 mg Q4HP PRN IV 08/25/24 03:15 08/25/24 21:25 4 MG Acetaminophen 650 mg Q6HP PRN PO 08/25/24 03:15 Pantoprazole Sodium 40 mg DAILY@0600 PO 08/25/24 06:00 08/28/24 05:40 40 MG Sucralfate 1 gm QID@0600,1130,1700,2200 PO 08/25/24 11:30 08/28/24 11:55 1 GM Morphine Sulfate 2 mg Q6HP PRN IV 08/25/24 10:45 08/26/24 21:34 2 MG Folic Acid 1 mg DAILY PO 08/26/24 10:00 08/28/24 10:10 1 MG Thiamine HCl 100 mg DAILY PO 08/27/24 10:00 08/28/24 10:10 100 MG objective General: NAD, AAOX3 Chest: lung [place] clear to auscultation Heart: RRR, no murmur Abdomen: non-distended, mild periumbilical tenderness to palpation, +BS laboratory and microbiology Laboratory Tests 08/28/24 04:34 08/27/24 07:12 Test 08/28/24 04:34 Range/Units Serum Glucose 93 74-106 mg/dL Problems(with codes): (1) Abdominal pain (2) Alcohol abuse (3) Lactic acidosis (4) Infectious colitis (5) Alcohol withdrawal (6) Nausea and vomiting Prognosis Plan Diet as tolerated Discharge planning in progress Outpatient follow up with GI Services for elective colonoscopy Once again thank you for allowing me to participate in the care of this patient Dietary Evaluation Review Comments: Recommend alcohol rehab and counseling for smoking cessation. Expected Outcomes/Goals: improved health, gradual wt gain Plan discussed with: Patient, Other (Dr Paredes) KATHY LOPEZ MD Aug 28, 2024 15:13
[2024-09-02] MEDS ORDERED: SUCR1TAB31 OR (09:19)
[2024-09-02] MEDS ORDERED: PANT40TA2 PO (09:19)
[2024-09-02] MEDS ORDERED: HYDR-4902 PO (09:19)
== END 2024-08-28 15:05 | disposition home or self-care (01) | DRG 249 ==
LOC: ER 22:29 → OVERFLOW 08-25 03:15 → CENTRAL 08-25 18:39
PROVIDERS: ADMIT Internal Medicine; ATTEND Internal Medicine
DX: A09 Infectious gastroenteritis and colitis, unspecified (principal); N17.0 Acute kidney failure with tubular necrosis; E87.20 Acidosis, unspecified; F10.20 Alcohol dependence, uncomplicated; K27.9 Peptic ulcer, site unspecified, unspecified as acute or chronic, without hemorrhage or perforation; I10 Essential (primary) hypertension; F10.229 Alcohol dependence with intoxication, unspecified; D64.9 Anemia, unspecified; E86.0 Dehydration; F17.210 Nicotine dependence, cigarettes, uncomplicated; F41.9 Anxiety disorder, unspecified; E87.6 Hypokalemia; Z80.8 Family history of malignant neoplasm of other organs or systems; Z87.11 Personal history of peptic ulcer disease; Y92.9 Unspecified place or not applicable
CPT/HCPCS: 36415; 74177; 80048; 80053; 80307; 81001; 82306; 82607; 82746; 83520; 83605; 83690; 83735; 84443; 85025; 85610; 85730; 86256; 96361; 96374; 96375; G0378; J1885; J2003; J2405; J3490

== ENCOUNTER 2024-08-29 14:31 | Inpatient (IN) | payer MEDICAID ==
[~2024-08-29] VITALS: Ht 175.3 cm; Wt 67.3 kg
[~2024-08-29 14:31] MED LIST changes: +AUG875T PO; +METR-344 PO
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
[2024-08-29 15:30] LABS: Basophils # (auto) 0.1 10 ^3/uL (0-0.2); Basophils % (auto) 0.8 % (0.0-2.0); Eosinophils # (auto) 0.2 10 ^3/uL (0-0.8); Eosinophils % (auto) 2.7 % (0.0-7.0); Hematocrit 28.5 % (41.0-53.0); Hemoglobin 9.3 g/dL (13.5-17.5); Lymphocytes # (auto) 1.6 10 ^3/uL (0.4-5.4); Mean Corpuscular Hemoglobin 28.8 pg (28.0-32.0); Mean Corpuscular Hgb Conc. 32.8 g/dL (32.0-36.0); Monocytes # (auto) 0.6 10 ^3/uL (0-1.3); Monocytes % (auto) 9.8 % (0.0-12.0); Neutrophils % (auto) 61.7 % (37.0-80.0); Platelet Count (auto) 543 10^3/uL (140-450); Red Blood Cells 3.24 10^6/uL (4.5-5.90); White Blood Cell 6.5 10^3/uL (4.4-10.8)
[2024-08-29 15:45] VITALS: PULSE 88; RESP 22; O2SAT 100
--- NOTE | 2024-08-29 15:50 | DVH ---
Exam: CT CT AB PEL WO CON-NO ORAL OR IV History: abd pain Comparison Study: None available at time of dictation. TECHNIQUE: Multidetector CT of the abdomen was performed from lung bases to pubic symphysis. Imaging was performed without IV contrast. Axial, coronal and sagittal multiplanar reformats were obtained fr om the axial data set by the technologist. Radiation Dose Information: CT Dose: CTDI volume is 6.03 mGy. Dose-length product is 309.6 mGy*cm FINDINGS: Evaluation of solid organs is limited due to lack of intravenous contrast use. Findings: Lung Bases: No acute or significant lung base finding. Normal heart size. No pleural or pericardial effusion. Liver: The liver is normal in size. No focal lesions. Gallbladder and Biliary Tree: Unremarkable Spleen: Unremarkable Pancreas: The pancreas is grossly normal in appearance. Adrenal Glands: Unremarkable Kidneys: Kidneys are grossly normal without calculi or hydronephrosis. Bladder: Grossly unremarkable for degree of distention. Bowel: The stomach is grossly normal in appearance. Small bowel and colon are normal in caliber and d istribution. The appendix is not visualized; however, no secondary findings of acute appendicitis id entified. Ascites: Absent Lymphadenopathy: No mesenteric, retroperitoneal or periportal lymphadenopathy. Abdominal Wall and Mesentery: Unremarkable. Vasculature: The visualized abdominal aorta is normal in size and caliber. Evaluation of abdominal a nd pelvic vessels is limited due to lack of intravenous contrast. Pelvic Organs: Unremarkable Musculoskeletal: No aggressive focal bony lesions, acute fractures or dislocation. Soft tissues: Unremarkable IMPRESSION: 1. Concentric wall thickening described in the colon on previous study of 08/25/2024 is not appreciat ed on the current study this may be secondary to the lack of IV contrast. Consider follow-up study. 2. No free air or free fluid. Radiation optimization: All CT scans at this facility use at least one of these dose optimization zaki hniques: automated exposure control mA and/or kV adjustment per patient size (includes targeted exam s where dose is matched to clinical indication) or iterative reconstruction. HS:Y
[2024-08-29] MEDS: ONDANSETRON HCL 4 MG/2 ML VIAL IV ONE (15:54)
[2024-08-29] MEDS: SODIUM CHLORIDE 0.9% 1,000 ML IV ONE ×2 (15:54→17:13)
[2024-08-29 15:59] LABS: Albumin 4.4 g/dL (3.2-4.8); Alkaline Phosphatase 55 U/L (46-116); Anion Gap 11 (5-15); BUN/Creatinine Ratio 17.5 (10.0-20.0); Blood Urea Nitrogen 11 mg/dL (9-23); Carbon Dioxide 25 mmol/L (20-31); Chloride 105 mmol/L (98-107); Glucose 100 mg/dL (74-106); Sodium 141 mmol/L (136-145); Total Protein 6.7 g/dL (5.7-8.2)
[2024-08-29 16:00] LABS: Lactic Acid w/Reflex 2.3 mmol/L (0.4-2.0)
[2024-08-29 16:01] LABS: Alanine Aminotransferase < 9 U/L (7-40); Aspartate Aminotransferase < 8 U/L (13-40); Bilirubin, Total 0.2 mg/dL (0.2-1.0); Potassium 2.7 mmol/L (3.5-5.1)
[2024-08-29 16:12] LABS: Lipase 32 U/L (12-53)
[2024-08-29] MEDS: fentaNYL CITRATE 100 MCG/2 ML VL IV ONE (16:12)
[2024-08-29] MEDS: POTASSIUM CHL 20 Meq TABLET PO ONE (16:49)
[2024-08-29] MEDS: THIAMINE HCL 100 MG TAB PO ONE (16:49)
[2024-08-29 17:01] LABS: Urine Bacteria None Seen /hpf (None Seen)
[2024-08-29 17:06] LABS: Urine Blood Negative /uL (Negative); Urine Clarity Clear (Clear); Urine Color Colorless (Yellow); Urine Protein, UAD Negative (Negative); Urine Specific Gravity 1.006 (1.001-1.035); Urine Squamous Epithelial Cell None Seen /hpf (<5); Urine Urobilinogen Normal (Negative); Urine pH 6.5 (5.0-9.0)
[2024-08-29 17:31] LABS: Amphetamine Screen, Urine Neg (NEGATIVE); Barbiturate Scree,Urine Neg (NEGATIVE); Benzodiazephine Screen, Urine Neg (NEGATIVE); Cannabinoid Screen, Urine Neg (NEGATIVE); Cocaine Screen, Urine Neg (NEGATIVE); Opiate Scree,Urine Neg (NEGATIVE); Phencyclidine Screen, Urine Neg (NEGATIVE)
[2024-08-29] MEDS: NITROGLYCERIN 0.4 MG SL TAB SL ONE (18:04)
[2024-08-29] MEDS: MORPHINE SULFATE INJ 2 MG/ml SYRG IV ONE (18:24)
[2024-08-29] MEDS ORDERED: ACETAMINOPHEN 325 MG TAB PO PRN (19:30)
[2024-08-29 20:00] VITALS: PULSE 81; RESP 22; O2SAT 98
--- NOTE | 2024-08-29 21:45 | DVHHP2 ---
History of Present Illness Reason for Visit: Abdominal pain History of Present Illness 54-year-old male presents for evaluation of abdominal pain. Patient was discharged yesterday for similar symptoms. He now returns with a one day history of nausea and vomiting and lower abdominal pain. Denies fever or chills. No cardiac or respiratory complaints. Past Medical History Peptic ulcer disease, hypertension, anemia Past Surgical History Denies Family History Noncontributory Smoke: No ALCOHOL: none Drugs: None Lives: with Family Review of Systems Review of Systems Review of systems are currently negative otherwise addressed in HPI. Allergies: Coded Allergies: NO KNOWN ALLERGIES (Unverified , 04/16/20) Medications Current Medications Medications Dose Ordered Sig/Rick Route Start Time Stop Time Status Last Admin Dose Admin Sucralfate 1 gm QIDACHS PO 08/29/24 22:00 Pantoprazole Sodium 40 mg DAILY@0600 PO 08/30/24 06:00 Folic Acid 1 mg DAILY PO 08/30/24 10:00 Thiamine HCl 100 mg DAILY PO 08/30/24 10:00 Acetaminophen/ Hydrocodone Bitart 1 tab Q4HP PRN PO 08/29/24 19:30 Ondansetron HCl 4 mg Q4HP PRN IV 08/29/24 19:30 Acetaminophen 650 mg Q6HP PRN PO 08/29/24 19:30 Exam Vital Signs Vital Signs Date Time Temp Pulse Resp B/P (MAP) Pulse Ox O2 Delivery O2 Flow Rate FiO2 08/29/24 18:34 146/86 08/29/24 18:24 78 24 08/29/24 17:00 98.4 99 98.4 08/29/24 15:45 Room Air* 0 21 Exam Gen: 54 year old male in mild distress. Skin: Warm, dry, normal color and texture, no rash. HEENT: Normocephalic atraumatic, mucous membranes moist and pink. Neck: Cervical and supraclavicular nodes normal without enlargement, trachea is midline, thyroid gland is normal without masses. Pulmonary: Clear to auscultation and percussion bilaterally. Cardiac: Regular rate and rhythm. No murmur Abdomen: Soft, nontender, nondistended, bowel sounds present all 4 quadrants, no guarding, no rigidity, no organomegaly. Extremities: No cyanosis, clubbing, no edema Neuro: Cranial nerves II through XII grossly intact, normal affect and speech, no focal motor deficits. Labs/Xrays ORDERING PHYSICIAN: CCEI ROJAS DO PROCEDURE(s): ABPL - CT AB PEL WO CON-NO ORAL OR IV REASON: abd pain ORDER NUMBER(s): [id number], ACCESSION NUMBER(s): [id number] Exam: CT CT AB PEL WO CON-NO ORAL OR IV History: abd pain Comparison Study: None available at time of dictation. TECHNIQUE: Multidetector CT of the abdomen was performed from lung bases to pubic symphysis. Imaging was performed without IV contrast. Axial, coronal and sagittal multiplanar reformats were obtained from the axial data set by the technologist. Radiation Dose Information: CT Dose: CTDI volume is 6.03 mGy. Dose-length product is 309.6 mGy*cm FINDINGS: Evaluation of solid organs is limited due to lack of intravenous contrast use. Findings: Lung Bases: No acute or significant lung base finding. Normal heart size. No pleural or pericardial effusion. Liver: The liver is normal in size. No focal lesions. Gallbladder and Biliary Tree: Unremarkable Spleen: Unremarkable Pancreas: The pancreas is grossly normal in appearance. Adrenal Glands: Unremarkable Kidneys: Kidneys are grossly normal without calculi or hydronephrosis. Bladder: Grossly unremarkable for degree of distention. Bowel: The stomach is grossly normal in appearance. Small bowel and colon are normal in caliber and distribution. The appendix is not visualized; however, no secondary findings of acute appendicitis identified. Ascites: Absent Lymphadenopathy: No mesenteric, retroperitoneal or periportal lymphadenopathy. Abdominal Wall and Mesentery: Unremarkable. Vasculature: The visualized abdominal aorta is normal in size and caliber. Evaluation of abdominal and pelvic vessels is limited due to lack of intravenous contrast. Pelvic Organs: Unremarkable Musculoskeletal: No aggressive focal bony lesions, acute fractures or dislocation. Soft tissues: Unremarkable IMPRESSION: 1. Concentric wall thickening described in the colon on previous study of 08/25/2024 is not appreciated on the current study this may be secondary to the lack of IV contrast. Consider follow-up study. 2. No free air or free fluid. Radiation optimization: All CT scans at this facility use at least one of these dose optimization techniques: automated exposure control mA and/or kV adjustment per patient size (includes targeted exams where dose is matched to clinical indication) or iterative reconstruction. HS:Y Labs Test 08/29/24 17:42 08/29/24 17:12 08/29/24 16:51 08/29/24 15:14 Range/Units Lactic Acid Level 1.5 0.4-2.0 mmol/L Troponin I High Sensitivity 4 </=54 ng/L Urine Color Colorless Yellow Urine Clarity Clear Clear Urine pH 6.5 5.0-9.0 Urine Specific [place] 1.006 1.001-1.035 Urine Protein Negative Negative Urine Ketones Trace Negative Urine Blood Negative Negative /uL Urine Nitrite Negative Negative Urine Bilirubin Negative Negative Urine Urobilinogen Normal Negative mg/dL Urine Leukocyte Esterase Negative Negative /uL Urine RBC None seen 0 - 3 /hpf Urine Microscopic WBC 0-3 /HPF Urine Squamous Epithelial Cells None seen <5 /hpf Urine Bacteria None seen None Seen /hpf Urine Glucose Normal Normal mg/dL Urine Opiates Screen Neg NEGATIVE Urine Fentanyl Screen Neg NEGATIVE Urine Barbiturates Screen Neg NEGATIVE Urine Phencyclidine Screen Neg NEGATIVE Urine Amphetamines Screen Neg NEGATIVE Urine Benzodiazepines Screen Neg NEGATIVE Urine Cocaine Screen Neg NEGATIVE Urine Cannabinoids Screen Neg NEGATIVE White Blood Count 6.5 4.4-10.8 10^3/uL Red Blood Count 3.24 L 4.5-5.90 10^6/uL Hemoglobin 9.3 L 13.5-17.5 g/dL Hematocrit 28.5 L 41.0-53.0 % Mean Corpuscular Volume 88.0 80.0-100.0 fL Mean Corpuscular Hemoglobin 28.8 28.0-32.0 pg Mean Corpuscular Hemoglobin Concent 32.8 32.0-36.0 g/dL Red Cell Distribution Width 19.0 H 11.8-14.3 % Platelet Count 543 H 140-450 10^3/uL Mean Platelet Volume 6.8 L 6.9-10.8 fL Neutrophils (%) (Auto) 61.7 37.0-80.0 % Lymphocytes (%) (Auto) 25.0 10.0-50.0 % Monocytes (%) (Auto) 9.8 0.0-12.0 % Eosinophils (%) (Auto) 2.7 0.0-7.0 % Basophils (%) (Auto) 0.8 0.0-2.0 % Neutrophils # (Auto) 4.0 1.6-8.6 10 ^3/uL Lymphocytes # (Auto) 1.6 0.4-5.4 10 ^3/uL Monocytes # (Auto) 0.6 0-1.3 10 ^3/uL Eosinophils # (Auto) 0.2 0-0.8 10 ^3/uL Basophils # (Auto) 0.1 0-0.2 10 ^3/uL Nucleated Red Blood Cells 0.0 % Sodium Level 141 136-145 mmol/L Potassium Level 2.7 L 3.5-5.1 mmol/L Chloride Level 105 98-107 mmol/L Carbon Dioxide Level 25 20-31 mmol/L Anion Gap 11 5-15 Blood Urea Nitrogen 11 9-23 mg/dL Creatinine 0.63 L 0.700-1.30 mg/dL Glomerular Filtration Rate Calc 113 >90 mL/min BUN/Creatinine Ratio 17.5 10.0-20.0 Serum Glucose 100 74-106 mg/dL Calcium Level 9.0 8.7-10.4 mg/dL Total Bilirubin 0.2 0.2-1.0 mg/dL Aspartate Amino Transferase (AST) < 8 L 13-40 U/L Alanine Aminotransferase (ALT) < 9 7-40 U/L Alkaline Phosphatase 55 46-116 U/L Total Protein 6.7 5.7-8.2 g/dL Albumin 4.4 3.2-4.8 g/dL Lipase 32 12-53 U/L Plasma/Serum Blood Alcohol 75.0 H <10 mg/dL Assessment/Plan Assessment/Plan Assessment Acute abdominal pain Lactic acidosis Alcohol intoxication Hypokalemia Plan Admit the patient to [facility] to the hospitalist GI consultation Clear liquid diet Time Plan discussed with: Patient My Orders Orders - ITA HARRIS AGACN Procedure Category Date Status Time Sucralfate Tab PHA 08/29/24 In Process (Carafate Tab) 22:00 Pantoprazole Tablet PHA 08/30/24 In Process (Protonix Tablet) 06:00 Folic Acid Tablet PHA 08/30/24 In Process 10:00 Thiamine Tab PHA 08/30/24 In Process 10:00 * Gi D[facility] Manager Library CONS 08/29/24 Transmitted 19:21 Admit ADMIT 08/29/24 Transmitted 19:21 Hydrocodone-Acet PHA 08/29/24 In Process 5/325mg Tab ([place] 19:30 Ondansetron Hcl PHA 08/29/24 In Process (Zofran) 19:30 Condition: Stable RD 08/29/24 In Process 19:21 Acetaminophen Tablet PHA 08/29/24 In Process (Tylenol Tablet) 19:30 Clear Liq Diet DIET 08/30/24 Transmitted Breakfast Bedrest With Bathroom RD 08/29/24 In Process Privileg 19:21 Date of Service: Aug 29, 2024 Billing Provider: ITA HARRIS Common Visit Codes: [id number] INP/OBS CARE (MOD) ITA HARRIS Aug 29, 2024 21:45
[2024-08-29] MEDS: HYDROcodone-ACET 5/325MG TAB PO PRN (21:49)
[2024-08-29] MEDS: ONDANSETRON HCL 4 MG/2 ML VIAL IV PRN (21:50)
[2024-08-29 22:21] VITALS: BP 163/94; PULSE 70; RESP 18; TEMP 98; O2SAT 98
[2024-08-29 22:25] VITALS: BP 163/94; PULSE 70; RESP 20; TEMP 98; O2SAT 98
[2024-08-29] MEDS: SUCRALFATE 1 GM TAB PO SCH (23:21)
[2024-08-30] VITALS (8 sets, daily range): BP systolic 119–174; BP diastolic 73–105; PULSE 80–98; RESP 16–19; TEMP 97.4–98.2; O2SAT 96–100
[2024-08-30] MEDS: KETOROLAC TROMETH 30 MG/ML 1ML VIAL IV ONE (01:42)
[2024-08-30] MEDS: LISINOPRIL 5 MG TAB PO ONE (03:04)
[2024-08-30] MEDS: PANTOPRAZOLE 40 MG TAB PO SCH ×2 (06:37→22:16)
[2024-08-30] MEDS: THIAMINE HCL 100 MG TAB PO SCH (08:52)
[2024-08-30] MEDS: FOLIC ACID 1 MG TAB PO SCH (08:52)
--- NOTE | 2024-08-30 09:24 | DVHPN2 ---
Subjective Continue to complain of abdominal pain; nausea/vomiting controlled with antiemetics Reviewed: Care Plan, H&P, Labs, Medications, Previous Orders, Radiology Changes from previous H/P or p: Changes Objective Vitals Vital Signs Date Time Temp Pulse Resp B/P (MAP) Pulse Ox O2 Delivery O2 Flow Rate FiO2 08/30/24 08:13 97.8 88 19 119/73 (88) 98 97.8 08/30/24 08:00 Room Air* 0 21 Intake/Output Intake and Output 08/30/24 07:00 Intake Total 1040 ml Output Total 300 ml Balance 740 ml Intake Oral 40 ml IV Total 1000 ml Output Urine Total 300 ml General Appearance: Alert, Oriented X3, Cooperative, No acute distress HEENT: Atraumatic Lungs: Clear to auscultation, Normal air movement Cardiovascular: Regular rate, Normal S1, Normal S2, No murmurs Abdomen: Normal bowel sounds, Soft, Other (Diffuse tenderness) Extremities: No edema Neuro: Normal speech, Cranial nerves 3-12 NL Psych/Mental Status: Mental status NL, Mood NL Medications Current Medications Medications Dose Ordered Sig/Rick Route Start Time Stop Time Status Last Admin Dose Admin Sucralfate 1 gm QIDACHS PO 08/29/24 22:00 08/30/24 06:37 1 GM Pantoprazole Sodium 40 mg DAILY@0600 PO 08/30/24 06:00 08/30/24 06:37 40 MG Folic Acid 1 mg DAILY PO 08/30/24 10:00 08/30/24 08:52 1 MG Thiamine HCl 100 mg DAILY PO 08/30/24 10:00 08/30/24 08:52 100 MG Acetaminophen/ Hydrocodone Bitart 1 tab Q4HP PRN PO 08/29/24 19:30 08/30/24 06:40 1 TAB Ondansetron HCl 4 mg Q4HP PRN IV 08/29/24 19:30 08/29/24 21:50 4 MG Acetaminophen 650 mg Q6HP PRN PO 08/29/24 19:30 Laboratory Results Laboratory Tests 08/29/24 15:14 08/30/24 06:48 Chemistry Test 08/29/24 15:14 Albumin 4.4 g/dL (3.2-4.8) Calcium Level 9.0 mg/dL (8.7-10.4) Total Protein 6.7 g/dL (5.7-8.2) Lipid panel Test 08/29/24 15:14 Lipase 32 U/L (12-53) LFT Test 08/29/24 15:14 Alanine Aminotransferase (ALT) < 9 U/L (7-40) Alkaline Phosphatase 55 U/L (46-116) Aspartate Amino Transferase (AST) < 8 U/L (13-40) L Total Bilirubin 0.2 mg/dL (0.2-1.0) Urinalysis Test 08/29/24 16:51 Urine Color Colorless (Yellow) Urine Clarity Clear (Clear) Urine pH 6.5 (5.0-9.0) Urine Specific [place] 1.006 (1.001-1.035) Urine Protein Negative (Negative) Urine Ketones Trace (Negative) Urine Blood Negative /uL (Negative) Urine Nitrite Negative (Negative) Urine Bilirubin Negative (Negative) Urine Urobilinogen Normal mg/dL (Negative) Urine Leukocyte Esterase Negative /uL (Negative) Urine RBC None seen /hpf (0 - 3) Urine Microscopic WBC /HPF (0-3) Urine Squamous Epithelial Cells None seen /hpf (<5) Urine Bacteria None seen /hpf (None Seen) Urine Glucose Normal mg/dL (Normal) Labs and/or images reviewed: Labs reviewed by me, Image(s) reviewed by me Assessment/Plan Assessment/Plan A 54-year-old male patient; with multiple comorbidities; who presented to the emergency department with alcohol intoxication. #Alcohol intoxication; continue folic acid and thiamine; started on CIWA protocol for the possibility of alcohol withdrawal; reviewed alcohol level that was elevated at 75.0 along with drug screen; counseled on both tobacco and alcohol use cessation; continue monitoring #Abdominal pain with nausea and vomiting; reviewed abdomen/pelvis CT; continue pantoprazole and sucralfate; continue clear liquid diet; GI consulted; continue antiemetic and pain management as indicated; continue monitoring #Lactic acidosis due to alcohol intoxication; continue IV fluids; continue monitoring #Hypokalemia due to alcohol intoxication and GI losses; replace electrolytes as indicated; ordered magnesium level; continue monitoring #Severe alcohol use disorder; counseled on both alcohol and use cessation; continue folic acid and thiamine; continue monitoring #Tobacco use disorder; counseled on both alcohol and tobacco use cessation; refused nicotine patch; continue monitoring #Normocytic anemia; no signs/symptoms of active bleeding; GI is following; continue monitoring #Thrombocytosis; most likely reactive; continue monitoring Goals of care discussed with the patient for 20 minutes; full code Counseled on tobacco and alcohol cessation for 22 minutes including 12 minutes separately for tobacco use cessation This medical document was created using an electronic medical record system with computerized dictation system. Although this document has been carefully reviewed, there might still be some phonetic and typographical errors. These areas are purely typographical due to imperfections of the software programs, and do not reflect any compromise in the patient's medical care. Plan discussed with: Patient, Other (Nurse) Date of Service: Aug 30, 2024 Billing Provider: ALLEN LOOMIS MD Common Visit Codes: [id number] INP/OBS CARE(HIGH) Secondary Visit Codes: [id number] CHNG SMOKING >10MIN (Counseled on tobacco and alcohol cessation for 22 minutes including 12 minutes separately for tobacco use cessation), [id number] CARE PLAN 30 MINUTES (20 minutes) ALLEN LOOMIS MD Aug 30, 2024 09:24
[2024-08-30] MEDS: MAGNESIUM SULFATE 1GM/100ML 100 ML IV ONE (10:15)
[2024-08-30] MEDS: SODIUM CHLORIDE 0.9% 1,000 ML IV SCH (11:15)
[2024-08-30] MEDS: POTASSIUM CHLORIDE 40 MEQ, LIDOCAINE 1% (LOCAL ANESTH.) 4 ML in SODIUM CHL 0.9% 250 ML IV ONE (11:59)
[2024-08-30] MEDS: MELATONIN 5 MG TAB PO PRN (20:43)
[2024-08-30] MEDS: MUPIROCIN 2% OINT 15gm or 22gm FOR MRSA NARES EACHNOSTRI SCH (20:44)
--- NOTE | 2024-08-30 21:42 | DVHINCON2 ---
Date of service: Aug 30, 2024 Referring Physician Ji Ospina Reason for Consultation N/V and abdominal pain History of Present Illness 54-year-old male presents for evaluation of abdominal pain. Patient was discharged yesterday for similar symptoms. He now returns with a one day history of nausea and vomiting and lower abdominal pain. Denies fever or chills. No cardiac or respiratory complaints. Upon my evaluation the patient stated his symptoms have improved. He wanted to advance his diet Past Medical History Past Medical History Peptic ulcer disease, hypertension, anemia Past Surgical History Past Surgical History Denies Family History: Cardiovascular disease G8 MOTHER FH: renal failure G8 FATHER Graves' disease G8 BROTHER Malignant neoplasm of ovary G8 MOTHER Allergies: Coded Allergies: NO KNOWN ALLERGIES (Unverified , 04/16/20) Home Meds Active Scripts Metronidazole (Flagyl) 500 Mg Tab, 500 MG PO TID for 5 Days, #15 TAB Prov:ALLEN LOOMIS MD 08/28/24 Amoxicillin & Pot Clavulanate (AUGMENTIN TABLET) 875 Mg Tb, 875 MG PO BID for 5 Days, #10 TAB Prov:ALLEN LOOMIS MD 08/28/24 Pantoprazole Sodium Sesquihydr (Protonix) 40 Mg Tab, 40 MG PO BID for 30 Days, #60 TAB Prov:ALBERTA MCNULTY RESIDENT 08/11/24 Sucralfate (Carafate) 1 Gm/10 Ml Shirin, 10 ML PO QID for 30 Days, #1200 ML Prov:ALBERTA MCNULTY RESIDENT 08/11/24 Current Medications Current Medications Medications (Trade) Dose Ordered Sig/Rick Route PRN Reason Start Time Stop Time Status Last Admin Sucralfate (Carafate Tab) 1 gm QIDACHS PO 08/29/24 22:00 08/30/24 20:43 Pantoprazole Sodium (Protonix Tablet) 40 mg DAILY@0600 PO 08/30/24 06:00 08/30/24 06:37 Folic Acid 1 mg DAILY PO 08/30/24 10:00 08/30/24 08:52 Thiamine HCl 100 mg DAILY PO 08/30/24 10:00 08/30/24 08:52 Sodium Chloride 1,000 ml @ 100 mls/hr Q10H IV 08/30/24 11:15 08/30/24 11:15 Mupirocin (Bactroban 2% Ointment) 1 applic BID EACHNOSTRI 08/30/24 22:00 09/04/24 21:59 08/30/24 20:44 Melatonin (Melatonin) 5 mg HS PRN PO For sleep 08/30/24 20:45 08/30/24 20:43 Vital Signs Vital Signs Date Time Temp Pulse Resp B/P (MAP) Pulse Ox O2 Delivery O2 Flow Rate FiO2 08/30/24 17:47 121/89 (100) 08/30/24 16:27 98.2 84 16 96 98.2 08/30/24 08:00 Room Air* 0 21 Physical Exam General Appearance: Alert, Oriented X3, Cooperative, No acute distress HEENT: Atraumatic Lungs: Clear to auscultation, Normal air movement Cardiovascular: Regular rate, Normal S1, Normal S2, No murmurs Abdomen: Normal bowel sounds, Soft, Other (Diffuse tenderness) Extremities: No edema Neuro: Normal speech, Cranial nerves 3-12 NL Psych/Mental Status: Mental status NL, Mood NL Labs/Diagnostic Data Labs Test 08/30/24 06:48 08/29/24 17:42 08/29/24 17:12 08/29/24 16:51 Range/Units Potassium Level 3.3 L 3.5-5.1 mmol/L Lactic Acid Level 1.5 0.4-2.0 mmol/L Troponin I High Sensitivity 4 </=54 ng/L Urine Color Colorless Yellow Urine Clarity Clear Clear Urine pH 6.5 5.0-9.0 Urine Specific [place] 1.006 1.001-1.035 Urine Protein Negative Negative Urine Ketones Trace Negative Urine Blood Negative Negative /uL Urine Nitrite Negative Negative Urine Bilirubin Negative Negative Urine Urobilinogen Normal Negative mg/dL Urine Leukocyte Esterase Negative Negative /uL Urine RBC None seen 0 - 3 /hpf Urine Microscopic WBC 0-3 /HPF Urine Squamous Epithelial Cells None seen <5 /hpf Urine Bacteria None seen None Seen /hpf Urine Glucose Normal Normal mg/dL Urine Opiates Screen Neg NEGATIVE Urine Fentanyl Screen Neg NEGATIVE Urine Barbiturates Screen Neg NEGATIVE Urine Phencyclidine Screen Neg NEGATIVE Urine Amphetamines Screen Neg NEGATIVE Urine Benzodiazepines Screen Neg NEGATIVE Urine Cocaine Screen Neg NEGATIVE Urine Cannabinoids Screen Neg NEGATIVE Test 08/29/24 15:14 Range/Units White Blood Count 6.5 4.4-10.8 10^3/uL Red Blood Count 3.24 L 4.5-5.90 10^6/uL Hemoglobin 9.3 L 13.5-17.5 g/dL Hematocrit 28.5 L 41.0-53.0 % Mean Corpuscular Volume 88.0 80.0-100.0 fL Mean Corpuscular Hemoglobin 28.8 28.0-32.0 pg Mean Corpuscular Hemoglobin Concent 32.8 32.0-36.0 g/dL Red Cell Distribution Width 19.0 H 11.8-14.3 % Platelet Count 543 H 140-450 10^3/uL Mean Platelet Volume 6.8 L 6.9-10.8 fL Neutrophils (%) (Auto) 61.7 37.0-80.0 % Lymphocytes (%) (Auto) 25.0 10.0-50.0 % Monocytes (%) (Auto) 9.8 0.0-12.0 % Eosinophils (%) (Auto) 2.7 0.0-7.0 % Basophils (%) (Auto) 0.8 0.0-2.0 % Neutrophils # (Auto) 4.0 1.6-8.6 10 ^3/uL Lymphocytes # (Auto) 1.6 0.4-5.4 10 ^3/uL Monocytes # (Auto) 0.6 0-1.3 10 ^3/uL Eosinophils # (Auto) 0.2 0-0.8 10 ^3/uL Basophils # (Auto) 0.1 0-0.2 10 ^3/uL Nucleated Red Blood Cells 0.0 % Sodium Level 141 136-145 mmol/L Chloride Level 105 98-107 mmol/L Carbon Dioxide Level 25 20-31 mmol/L Anion Gap 11 5-15 Blood Urea Nitrogen 11 9-23 mg/dL Creatinine 0.63 L 0.700-1.30 mg/dL Glomerular Filtration Rate Calc 113 >90 mL/min BUN/Creatinine Ratio 17.5 10.0-20.0 Serum Glucose 100 74-106 mg/dL Calcium Level 9.0 8.7-10.4 mg/dL Total Bilirubin 0.2 0.2-1.0 mg/dL Aspartate Amino Transferase (AST) < 8 L 13-40 U/L Alanine Aminotransferase (ALT) < 9 7-40 U/L Alkaline Phosphatase 55 46-116 U/L Total Protein 6.7 5.7-8.2 g/dL Albumin 4.4 3.2-4.8 g/dL Lipase 32 12-53 U/L Plasma/Serum Blood Alcohol 75.0 H <10 mg/dL Microbiology Date/Time Source Procedure Growth Status 08/29/24 22:50 Nose MRSA Screen - Final Methicillin Resistant S.aureus Complete CT SCAN ABD PELVIS IMPRESSION: 1. Concentric wall thickening described in the colon on previous study of 08/25/2024 is not appreciated on the current study this may be secondary to the lack of IV contrast. Consider follow-up study. 2. No free air or free fluid. Problems(with codes): (1) Abdominal pain (2) Nausea and vomiting (3) Alcohol abuse (4) Anxiety (5) Alcoholic gastritis (6) Anemia Plan/Recommendation Plan Protonix 40 mg IV q.12 hours Carafate 1 g p.o. 4 times a day Patient is suspected to have alcoholic gastritis, his alcohol level was high on admission Patient has been counseled about discontinuing alcohol I offered him an endoscopy however he wishes to defer any endoscopic workup at this time and requested medical management Advance diet as tolerated I will follow the patient as needed Plan discussed with: Patient KATHY LOPEZ MD Aug 30, 2024 21:42
[2024-08-30] MEDS: hydrALAZINE HCL 20 MG/ML VL IV PRN (22:24)
[2024-08-31] VITALS (8 sets, daily range): BP systolic 118–158; BP diastolic 67–93; PULSE 68–79; RESP 16–22; TEMP 97.9–98.5; O2SAT 95–100
[2024-08-31 06:51] LABS: Eosinophils # (auto) 0.3 10 ^3/uL (0-0.8); Eosinophils % (auto) 3.8 % (0.0-7.0); Red Cell Distribution Width 18.4 % (11.8-14.3)
[2024-08-31 06:53] LABS: Basophils # (auto) 0 10 ^3/uL (0-0.2); Basophils % (auto) 0.6 % (0.0-2.0); Hematocrit 27.8 % (41.0-53.0); Lymphocytes # (auto) 2.5 10 ^3/uL (0.4-5.4); Lymphocytes % (auto) 33.4 % (10.0-50.0); Mean Corpuscular Hemoglobin 28.2 pg (28.0-32.0); Mean Corpuscular Hgb Conc. 32.3 g/dL (32.0-36.0); Mean Corpuscular Volume 87.4 fL (80.0-100.0); Monocytes # (auto) 0.7 10 ^3/uL (0-1.3); Monocytes % (auto) 9.8 % (0.0-12.0); Neutrophils # (auto) 3.9 10 ^3/uL (1.6-8.6); Neutrophils % (auto) 52.4 % (37.0-80.0); Red Blood Cells 3.18 10^6/uL (4.5-5.90); White Blood Cell 7.5 10^3/uL (4.4-10.8)
[2024-08-31 07:05] LABS: Potassium 3.8 mmol/L (3.5-5.1); Sodium 141 mmol/L (136-145)
[2024-08-31 07:06] LABS: Anion Gap 6 (5-15); Carbon Dioxide 26 mmol/L (20-31); Chloride 109 mmol/L (98-107)
[2024-08-31 07:10] LABS: Platelet Count (auto) 536 10^3/uL (140-450)
[2024-08-31 07:11] LABS: BUN/Creatinine Ratio 7.9 (10.0-20.0); Glucose 94 mg/dL (74-106)
[2024-08-31 07:12] LABS: Blood Urea Nitrogen 5 mg/dL (9-23)
--- NOTE | 2024-08-31 13:52 | DVHPN2 ---
Subjective Continues to report having epigastric pain 09/10. Reviewed: Care Plan, H&P, Labs, Medications, Previous Orders, Radiology Changes from previous H/P or p: No Changes General: Per HPI Objective Vitals Vital Signs Date Time Temp Pulse Resp B/P (MAP) Pulse Ox O2 Delivery O2 Flow Rate FiO2 08/31/24 13:00 98.1 72 22 137/74 (95) 97 98.1 08/30/24 20:00 Room Air* 0 21 Intake/Output Intake and Output 08/31/24 07:00 Intake Total 1624 ml Output Total 300 ml Balance 1324 ml Intake Oral 950 ml IV Total 674 ml Output Urine Total 300 ml General Appearance: Alert, Oriented X3, Cooperative, mild distress HEENT: Atraumatic Lungs: Clear to auscultation, Normal air movement Cardiovascular: Regular rate, Normal S1, Normal S2, No murmurs Abdomen: Normal bowel sounds, Soft, Other (Diffuse tenderness) Extremities: No edema Neuro: Normal speech, Cranial nerves 3-12 NL Psych/Mental Status: Mental status NL, Mood NL Medications Current Medications Medications Dose Ordered Sig/Rick Route Start Time Stop Time Status Last Admin Dose Admin Sucralfate 1 gm QIDACHS PO 08/29/24 22:00 08/31/24 11:07 1 GM Folic Acid 1 mg DAILY PO 08/30/24 10:00 08/31/24 11:07 1 MG Thiamine HCl 100 mg DAILY PO 08/30/24 10:00 08/31/24 11:07 100 MG Acetaminophen/ Hydrocodone Bitart 1 tab Q4HP PRN PO 08/29/24 19:30 08/31/24 11:07 1 TAB Ondansetron HCl 4 mg Q4HP PRN IV 08/29/24 19:30 08/31/24 11:13 4 MG Acetaminophen 650 mg Q6HP PRN PO 08/29/24 19:30 Sodium Chloride 1,000 ml @ 100 mls/hr Q10H IV 08/30/24 11:15 08/31/24 05:57 100 MLS/HR Mupirocin 1 applic BID EACHNOSTRI 08/30/24 22:00 09/04/24 21:59 08/31/24 10:00 1 APPLIC Melatonin 5 mg HS PRN PO 08/30/24 20:45 08/30/24 20:43 5 MG Pantoprazole Sodium 40 mg BID PO 08/30/24 22:00 08/31/24 11:07 40 MG Hydralazine HCl 10 mg Q6HP PRN IV 08/30/24 22:00 Laboratory Results Laboratory Tests 08/31/24 06:19 Chemistry Test 08/31/24 06:19 Calcium Level 9.0 mg/dL (8.7-10.4) Magnesium Level 2.0 mg/dL (1.6-2.6) Urinalysis Test 08/29/24 16:51 Urine Color Colorless (Yellow) Urine Clarity Clear (Clear) Urine pH 6.5 (5.0-9.0) Urine Specific [place] 1.006 (1.001-1.035) Urine Protein Negative (Negative) Urine Ketones Trace (Negative) Urine Blood Negative /uL (Negative) Urine Nitrite Negative (Negative) Urine Bilirubin Negative (Negative) Urine Urobilinogen Normal mg/dL (Negative) Urine Leukocyte Esterase Negative /uL (Negative) Urine RBC None seen /hpf (0 - 3) Urine Microscopic WBC /HPF (0-3) Urine Squamous Epithelial Cells None seen /hpf (<5) Urine Bacteria None seen /hpf (None Seen) Urine Glucose Normal mg/dL (Normal) Microbiology Microbiology Date/Time Source Procedure Growth Status 08/29/24 22:50 Nose MRSA Screen - Final Methicillin Resistant S.aureus Complete Labs and/or images reviewed: Labs reviewed by me, Image(s) reviewed by me Assessment/Plan Assessment/Plan Impression: -abdominal pain -history of peptic ulcer disease -hypokalemia -alcoholism -tobacco abuse -normocytic anemia Plan: -long discussion made with the patient regarding plan of care. Patient was now agreeable for EGD. -reconsult Gastroenterology -continue Protonix and Carafate -continue clear liquid diet -CIWA protocol -repeat labs in a.m. Total time spent with patient discussing and formulating plan of care: 35 minutes. This medical document was created using an electronic medical record system with [employer] dictation system. Although this document has been carefully reviewed, there may still be some phonetic and typographical errors. These areas are purely typographical due to imperfections of the software programs, and do not reflect any compromise in the patient's medical care. Plan discussed with: Patient, Other (RN) My Orders Orders - EDYTA DUMONT [employer] PROFESSION[employer] Procedure Category Date Status Time *Consult Dr. Rainey CONS 08/31/24 Verified [place] 13:49 Date of Service: Aug 31, 2024 Billing Provider: EDYTA DUMONT NP Common Visit Codes: [id number] INP/OBS CARE(HIGH) EDYTA DUMONT NP Aug 31, 2024 13:51
--- NOTE | 2024-08-31 21:25 | DVHPN2 ---
Progress Note - Dictate Date Seen: Aug 31, 2024 Medical Necessity Reason Pt with a Central, PICC or Fol: No Subjective No new complaints Feels better No GI bleeding, hemoglobin stable at 9.3 vital signs Vital Sign Date Time Temp Pulse Resp B/P (MAP) Pulse Ox O2 Delivery O2 Flow Rate FiO2 08/31/24 21:00 97.9 68 20 141/70 (93) 98 97.9 08/31/24 20:00 Room Air* 0 21 Total Intake and Output 08/30/24 08/30/24 08/31/24 15:00 23:00 07:00 Intake Total 1174 ml 450 ml Output Total 300 ml Balance 874 ml 450 ml medications Current Medications Medications Dose Ordered Sig/Rick Route Start Time Stop Time Status Last Admin Dose Admin Sucralfate 1 gm QIDACHS PO 08/29/24 22:00 08/31/24 17:32 1 GM Folic Acid 1 mg DAILY PO 08/30/24 10:00 08/31/24 11:07 1 MG Thiamine HCl 100 mg DAILY PO 08/30/24 10:00 08/31/24 11:07 100 MG Acetaminophen/ Hydrocodone Bitart 1 tab Q4HP PRN PO 08/29/24 19:30 08/31/24 17:32 1 TAB Ondansetron HCl 4 mg Q4HP PRN IV 08/29/24 19:30 08/31/24 11:13 4 MG Acetaminophen 650 mg Q6HP PRN PO 08/29/24 19:30 Sodium Chloride 1,000 ml @ 100 mls/hr Q10H IV 08/30/24 11:15 08/31/24 17:32 100 MLS/HR Mupirocin 1 applic BID EACHNOSTRI 08/30/24 22:00 09/04/24 21:59 08/31/24 10:00 1 APPLIC Melatonin 5 mg HS PRN PO 08/30/24 20:45 08/30/24 20:43 5 MG Pantoprazole Sodium 40 mg BID PO 08/30/24 22:00 08/31/24 11:07 40 MG Hydralazine HCl 10 mg Q6HP PRN IV 08/30/24 22:00 objective General Appearance: Alert, Oriented X3, Cooperative, No acute distress HEENT: Atraumatic Lungs: Clear to auscultation, Normal air movement Cardiovascular: Regular rate, Normal S1, Normal S2, No murmurs Abdomen: Normal bowel sounds, Soft, Other (Diffuse tenderness) Extremities: No edema Neuro: Normal speech, Cranial nerves 3-12 NL Psych/Mental Status: Mental status NL, Mood NL laboratory and microbiology Laboratory Tests 08/31/24 06:19 Test 08/31/24 06:19 Range/Units Serum Glucose 94 74-106 mg/dL Problems(with codes): (1) Anxiety (2) Alcoholic gastritis (3) Abdominal pain (4) Nausea and vomiting (5) Alcohol abuse Prognosis PLAN Patient has agreed to proceed with an endoscopy We will keep him NPO after midnight I will schedule an endoscopy tomorrow Continue Protonix 40 mg IV daily Carafate 1 g p.o. twice a day DC aspirin NSAIDs smoking alcohol Dietary Evaluation Review Recommendations by RD: Increase Calorie Intake, Protein Supplementation Comments: 1) Continue thiamin and folic acid supplementation d/t ETOH intoxication 2) Initiate Ensure clear bid 3) Advance to 2g Na diet when medically feasible, pending TIE KNITTER HELPER approval 4) Follow-up with gastroenterology 5) Refer to social media director r/t ETOH abuse 6) Continue to monitor I&O, labs, and skin integrity Expected Outcomes/Goals: 1) appetite and labs to improve 2) GI symptoms to resolve 3) diet to advance 4) f/u in 2-3 days Plan discussed with: Patient, Other (Hoang [place]) KATHY LOPEZ MD Aug 31, 2024 21:25
[2024-09-01] VITALS (7 sets, daily range): BP systolic 126–143; BP diastolic 69–85; PULSE 69–101; RESP 15–20; TEMP 97.8–98.2; O2SAT 96–100
[2024-09-01 07:32] LABS: Basophils # (auto) 0.1 10 ^3/uL (0-0.2); Hemoglobin 8.7 g/dL (13.5-17.5); Lymphocytes # (auto) 2.6 10 ^3/uL (0.4-5.4); Monocytes # (auto) 0.7 10 ^3/uL (0-1.3); White Blood Cell 6.9 10^3/uL (4.4-10.8)
[2024-09-01 07:36] LABS: Basophils % (auto) 1.3 % (0.0-2.0); Eosinophils # (auto) 0.3 10 ^3/uL (0-0.8); Eosinophils % (auto) 3.9 % (0.0-7.0); Hematocrit 26.3 % (41.0-53.0); Lymphocytes % (auto) 37.9 % (10.0-50.0); Mean Corpuscular Hemoglobin 28.8 pg (28.0-32.0); Mean Corpuscular Volume 87.2 fL (80.0-100.0); Monocytes % (auto) 9.7 % (0.0-12.0); Neutrophils # (auto) 3.2 10 ^3/uL (1.6-8.6); Neutrophils % (auto) 47.2 % (37.0-80.0); Platelet Count (auto) 517 10^3/uL (140-450); Red Blood Cells 3.01 10^6/uL (4.5-5.90); Red Cell Distribution Width 18.1 % (11.8-14.3)
[2024-09-01 07:52] LABS: Sodium 142 mmol/L (136-145)
[2024-09-01 07:53] LABS: Anion Gap 4 (5-15); Calcium 9.1 mg/dL (8.7-10.4); Carbon Dioxide 29 mmol/L (20-31)
[2024-09-01 07:58] LABS: Chloride 109 mmol/L (98-107); Glucose 88 mg/dL (74-106)
[2024-09-01 08:03] LABS: BUN/Creatinine Ratio 10.3 (10.0-20.0); Blood Urea Nitrogen 7 mg/dL (9-23)
--- NOTE | 2024-09-01 10:37 | DVHPN2 ---
Subjective Continues to report having epigastric pain 09/10. Reviewed: Care Plan, H&P, Labs, Medications, Previous Orders, Radiology Changes from previous H/P or p: No Changes General: Per HPI Objective Vitals Vital Signs Date Time Temp Pulse Resp B/P (MAP) Pulse Ox O2 Delivery O2 Flow Rate FiO2 09/01/24 09:00 98.2 69 17 141/78 (99) 99 98.2 09/01/24 08:00 Room Air* 0 21 Intake/Output Intake and Output 09/01/24 07:00 Intake Total 1800 ml Balance 1800 ml Intake Oral 1800 ml # Voids 10 General Appearance: Alert, Oriented X3, Cooperative, mild distress HEENT: Atraumatic Lungs: Clear to auscultation, Normal air movement Cardiovascular: Regular rate, Normal S1, Normal S2, No murmurs Abdomen: Normal bowel sounds, Soft, Other (Diffuse tenderness) Extremities: No edema Neuro: Normal speech, Cranial nerves 3-12 NL Skin: Dry, Intact Psych/Mental Status: Mental status NL, Mood NL Medications Current Medications Medications Dose Ordered Sig/Rick Route Start Time Stop Time Status Last Admin Dose Admin Sucralfate 1 gm QIDACHS PO 08/29/24 22:00 09/01/24 06:00 1 GM Folic Acid 1 mg DAILY PO 08/30/24 10:00 09/01/24 08:23 1 MG Thiamine HCl 100 mg DAILY PO 08/30/24 10:00 09/01/24 08:23 100 MG Acetaminophen/ Hydrocodone Bitart 1 tab Q4HP PRN PO 08/29/24 19:30 09/01/24 08:23 1 TAB Ondansetron HCl 4 mg Q4HP PRN IV 08/29/24 19:30 08/31/24 11:13 4 MG Acetaminophen 650 mg Q6HP PRN PO 08/29/24 19:30 Sodium Chloride 1,000 ml @ 100 mls/hr Q10H IV 08/30/24 11:15 08/31/24 17:32 100 MLS/HR Mupirocin 1 applic BID EACHNOSTRI 08/30/24 22:00 09/04/24 21:59 09/01/24 08:22 1 APPLIC Melatonin 5 mg HS PRN PO 08/30/24 20:45 08/30/24 20:43 5 MG Pantoprazole Sodium 40 mg BID PO 08/30/24 22:00 09/01/24 08:23 40 MG Hydralazine HCl 10 mg Q6HP PRN IV 08/30/24 22:00 Laboratory Results Laboratory Tests 09/01/24 06:44 Chemistry Test 09/01/24 06:44 Calcium Level 9.1 mg/dL (8.7-10.4) Urinalysis Test 08/29/24 16:51 Urine Color Colorless (Yellow) Urine Clarity Clear (Clear) Urine pH 6.5 (5.0-9.0) Urine Specific [place] 1.006 (1.001-1.035) Urine Protein Negative (Negative) Urine Ketones Trace (Negative) Urine Blood Negative /uL (Negative) Urine Nitrite Negative (Negative) Urine Bilirubin Negative (Negative) Urine Urobilinogen Normal mg/dL (Negative) Urine Leukocyte Esterase Negative /uL (Negative) Urine RBC None seen /hpf (0 - 3) Urine Microscopic WBC /HPF (0-3) Urine Squamous Epithelial Cells None seen /hpf (<5) Urine Bacteria None seen /hpf (None Seen) Urine Glucose Normal mg/dL (Normal) Microbiology Microbiology Date/Time Source Procedure Growth Status 08/29/24 22:50 Nose MRSA Screen - Final Methicillin Resistant S.aureus Complete Labs and/or images reviewed: Labs reviewed by me, Image(s) reviewed by me Assessment/Plan Assessment/Plan Impression: -abdominal pain -history of peptic ulcer disease -hypokalemia -alcoholism -tobacco abuse -normocytic anemia -MRSA of the nares Plan: Events: No events overnight. Patient NPO with plans to have EGD today. -reconsult Gastroenterology -continue Protonix and Carafate -continue clear liquid diet -continue bacitracin to nares -CIWA protocol -repeat labs in a.m. Total time spent with patient discussing and formulating plan of care: 35 minutes. This medical document was created using an electronic medical record system with [employer] dictation system. Although this document has been carefully reviewed, there may still be some phonetic and typographical errors. These areas are purely typographical due to imperfections of the software programs, and do not reflect any compromise in the patient's medical care. Plan discussed with: Patient, Other (RN) My Orders Orders - EDYTA DUMONT DATA SME Procedure Category Date Status Time *Consult Dr. Rainey CONS 08/31/24 Transmitted [place] 13:49 Date of Service: Sep 01, 2024 Billing Provider: EDYTA DUMONT NP Common Visit Codes: [id number] INP/OBS CARE(HIGH) EDYTA DUMONT NP Sep 01, 2024 10:37
[2024-09-01] MEDS: LIDOCAINE VISCOUS 2% 15ML UD ONE (13:54)
[2024-09-01] MEDS ORDERED: fentaNYL CITRATE 100 MCG/2 ML VL ONE (13:54)
[2024-09-01] MEDS ORDERED: MIDAZOLAM HCL 2MG/2ML 2ml VIAL (1mg/ml) ONE (13:54)
[2024-09-01] MEDS ORDERED: PROPOFOL 10 MG/ML 20 ML IV ONE (14:12)
[2024-09-01] MEDS ORDERED: DexAMETHasone SOD PHOS 10MG/1ML VIAL INJ ONE (14:12)
[2024-09-01] MEDS: GASTROGRAFIN 120 ML SOL ONE (14:38)
--- NOTE | 2024-09-01 15:09 | DVHOP2 ---
Operative Report DATE OF OPERATION: 09/01/24 PROCEDURE: Upper Endoscopy with biopsy. PREOPERATIVE INDICATION: The patient is a 54 -year-old male undergoing endoscopy for epigastric pain and dyspepsia POSTOPERATIVE DIAGNOSES: 1. 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 Mild to moderate antral gastritis with pre-pyloric antral gastric erosions and tiny ulcers 3. There was a 2 cm sliding-type hiatal hernia with no significant erosive esophagitis 4. Otherwise normal examination up to the 2nd and 3rd part of the duodenum PROCEDURE PERFORMED BY: Kathy Zimmer GI NURSE: Luba SCOPE: Olympus videoendoscope. ASA CLASS: 2. PREOPERATIVE MEDICATIONS: Dr. Amando Pacheco PROCEDURE IN DETAIL: After obtaining an informed consent, the patient was placed on left lateral decubitus position. The patient was then sedated with the above medications. A bite block was placed between his teeth. The endoscope was then passed through the oropharynx, into the esophagus, and through the stomach and pylorus up to the second and third part of the duodenum. The endoscope was then withdrawn. The 2nd and 3rd part of the duodenal were normal. The duodenal bulb and postbulbar area shows moderate pyloric channel duodenal deformity There was a large 2 cm ulcer on the superior posterior wall of the duodenal bulb with a penetrating edge suspicious for possible fistula or internal communication Duodenal biopsies were obtained from 2nd and 3rd part of the duodenum. The pre- pyloric area and antrum showed [id number] gastritis There were pre-pyloric antral gastric erosions and some tiny linear ulcers . On retroflexion and straight on view the fundus cardia and angularis were normal. The endoscope was then withdrawn into the distal esophagus where the patient had a 2 cm sliding-type hiatal hernia with no significant erosive esophagitis The remaining distal and proximal esophagus and oropharynx were unremarkable The patient tolerated the procedure well without difficulty. COMPLICATIONS : None SPECIMENS: Duodenal biopsies Gastric biopsies DISPOSITION: Transfer back to the floor Stable PLAN: 1. Await for biopsy result 2. Will place pt on Protonix 40 mg bid IV 3. Get a upper GI x-ray with Gastrografin to rule out any extravasation of contrast or an internal fistulization from the duodenal ulcer 4. If the upper GI x-ray does not show any extravasation of contrast and we can start him on a full liquid diet and advance to pureed or soft mechanical if tolerated 5. Carafate suspension 1 g p.o. 4 times a day 6. Patient has been advised to DC aspirin NSAIDs smoking alcohol and substance abuse KATHY ZIMMER MD Sep 01, 2024 15:09
--- NOTE | 2024-09-01 15:24 | DVH ---
XY UGI WITH GASTROGRAFIN HISTORY: penetrating duodenal ulcer r/o leakage of contrast fistu COMPARISON: None PROCEDURE: A traveling sales executive radiograph was obtained prior to the procedure. Gastrografin and effervescent gran ules were administered orally, and radiographs were obtained under intermittent fluoroscopic observat ion. FINDINGS: The traveling sales executive image demonstrates no evidence for obstruction or free intraperitoneal gas. The esophagus was grossly normal in caliber with no stricture, filling defect or wall irregularity de monstrated. The stomach distended normally with a normal mucosal pattern and no evidence for filling defect, mass or wall irregularity. The duodenal bulb demonstrated no stricture or ulceration. Contrast flowed into more distal loops of small bowel, with no abnormality identified. IMPRESSION: No gross evidence of contrast extravasation visualized at the level of the duodenum to suggest for a leak.
[2024-09-01] MEDS: PANTOPRAZOLE 40 MG/10 ML VIAL INJ IV SCH (21:05)
[2024-09-02 01:00] VITALS: BP 135/52; PULSE 90; RESP 19; TEMP 98; O2SAT 96
[2024-09-02 05:00] VITALS: BP 167/86; PULSE 98; RESP 20; TEMP 97.9; O2SAT 97
[2024-09-02 08:00] VITALS: PULSE 76; RESP 18; O2SAT 95
[2024-09-02 09:00] VITALS: BP 143/86; PULSE 92; RESP 17; TEMP 97.8; O2SAT 98
--- NOTE | 2024-09-02 09:17 | DVHDS2 ---
Discharge Summary Date of Admission Aug 29, 2024 at 19:21 Date of Discharge: Sep 02, 2024 Admitting Diagnosis Abdominal pain Labs/Diagnostic Data: Laboratory Results Test 09/01/24 06:44 08/31/24 06:19 08/29/24 17:42 08/29/24 17:12 White Blood Count 6.9 10^3/uL (4.4-10.8) Red Blood Count 3.01 10^6/uL (4.5-5.90) Hemoglobin 8.7 g/dL (13.5-17.5) Hematocrit 26.3 % (41.0-53.0) Mean Corpuscular Volume 87.2 fL (80.0-100.0) Mean Corpuscular Hemoglobin 28.8 pg (28.0-32.0) Mean Corpuscular Hemoglobin Concent 33.0 g/dL (32.0-36.0) Red Cell Distribution Width 18.1 % (11.8-14.3) Platelet Count 517 10^3/uL (140-450) Mean Platelet Volume 7.1 fL (6.9-10.8) Neutrophils (%) (Auto) 47.2 % (37.0-80.0) Lymphocytes (%) (Auto) 37.9 % (10.0-50.0) Monocytes (%) (Auto) 9.7 % (0.0-12.0) Eosinophils (%) (Auto) 3.9 % (0.0-7.0) Basophils (%) (Auto) 1.3 % (0.0-2.0) Neutrophils # (Auto) 3.2 10 ^3/uL (1.6-8.6) Lymphocytes # (Auto) 2.6 10 ^3/uL (0.4-5.4) Monocytes # (Auto) 0.7 10 ^3/uL (0-1.3) Eosinophils # (Auto) 0.3 10 ^3/uL (0-0.8) Basophils # (Auto) 0.1 10 ^3/uL (0-0.2) Nucleated Red Blood Cells 0.0 % Sodium Level 142 mmol/L (136-145) Potassium Level 4.0 mmol/L (3.5-5.1) Chloride Level 109 mmol/L (98-107) Carbon Dioxide Level 29 mmol/L (20-31) Anion Gap 4 (5-15) Blood Urea Nitrogen 7 mg/dL (9-23) Creatinine 0.68 mg/dL (0.700-1.30) Glomerular Filtration Rate Calc 110 mL/min (>90) BUN/Creatinine Ratio 10.3 (10.0-20.0) Serum Glucose 88 mg/dL (74-106) Calcium Level 9.1 mg/dL (8.7-10.4) Magnesium Level 2.0 mg/dL (1.6-2.6) Lactic Acid Level 1.5 mmol/L (0.4-2.0) Troponin I High Sensitivity 4 ng/L (</=54) Test 08/29/24 16:51 08/29/24 15:14 Urine Color Colorless (Yellow) Urine Clarity Clear (Clear) Urine pH 6.5 (5.0-9.0) Urine Specific [place] 1.006 (1.001-1.035) Urine Protein Negative (Negative) Urine Ketones Trace (Negative) Urine Blood Negative /uL (Negative) Urine Nitrite Negative (Negative) Urine Bilirubin Negative (Negative) Urine Urobilinogen Normal mg/dL (Negative) Urine Leukocyte Esterase Negative /uL (Negative) Urine RBC None seen /hpf (0 - 3) Urine Microscopic WBC /HPF (0-3) Urine Squamous Epithelial Cells None seen /hpf (<5) Urine Bacteria None seen /hpf (None Seen) Urine Glucose Normal mg/dL (Normal) Urine Opiates Screen Neg (NEGATIVE) Urine Fentanyl Screen Neg (NEGATIVE) Urine Barbiturates Screen Neg (NEGATIVE) Urine Phencyclidine Screen Neg (NEGATIVE) Urine Amphetamines Screen Neg (NEGATIVE) Urine Benzodiazepines Screen Neg (NEGATIVE) Urine Cocaine Screen Neg (NEGATIVE) Urine Cannabinoids Screen Neg (NEGATIVE) Total Bilirubin 0.2 mg/dL (0.2-1.0) Aspartate Amino Transferase (AST) < 8 U/L (13-40) Alanine Aminotransferase (ALT) < 9 U/L (7-40) Alkaline Phosphatase 55 U/L (46-116) Total Protein 6.7 g/dL (5.7-8.2) Albumin 4.4 g/dL (3.2-4.8) Lipase 32 U/L (12-53) Plasma/Serum Blood Alcohol 75.0 mg/dL (<10) Other Laboratory Tests 09/01/24 06:44 Brief Hx & Hospital Course: History of Present Illness 54-year-old male presents for evaluation of abdominal pain. Patient was discharged yesterday for similar symptoms. He now returns with a one day history of nausea and vomiting and lower abdominal pain. Denies fever or chills. No cardiac or respiratory complaints. Course of hospitalization: Patient was treated with PPI and Carafate as well as clear liquid diet. Patient also was seen by Gastroenterology, undergoing EGD yesterday with the following findings: POSTOPERATIVE DIAGNOSES: 1. 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 Mild to moderate antral gastritis with pre-pyloric antral gastric erosions and tiny ulcers 3. There was a 2 cm sliding-type hiatal hernia with no significant erosive esophagitis 4. Otherwise normal examination up to the 2nd and 3rd part of the duodenum Following EGD, patient had upper GI series which was negative for any extravasation of contrast. Patient was giving lifestyle modification education regarding smoking cessation as well as alcohol intake. Patient verbalized understanding and will attempt to decrease uses about nicotine and alcohol. Patient will be discharged today, continued with current treatment with PPI and Carafate as well as being prescribed [place] 5/325 for abdominal pain. He was instructed to follow up with his established PCP appointment as well as Dr. Caitlin Zimmer in 2-3 weeks. All questions answered. Physical examination General: Alert and Oriented x3. No acute distress. Well-nourished. Eyes: EOMI. Anicteric. HENT: Moist mucous membranes. Lungs: Clear to auscultation bilaterally. No accessory muscle use. Cardiovascular: Regular rate and rhythm. No murmur. No JVD. Abdomen: Soft, non-tender and non-distended. No palpable masses. Extremities: No edema. Non-tender. Skin: No rashes or lesions. Warm. Neurologic: No focal neurological deficits. CN II-XII grossly intact, but not individually tested. Psychiatric: Cooperative. Appropriate mood and affect. Total time spent with patient discussing and formulating plan of care: 35 minutes. This medical document was created using an electronic medical record system with [employer] dictation system. Although this document has been carefully reviewed, there may still be some phonetic and typographical errors. These areas are purely typographical due to imperfections of the software programs, and do not reflect any compromise in the patient's medical care. Consults/Reason for consult Gastroenterology: Abdominal pain Operations or Procedures 09/01/2024: EGD Condition at Discharge: Guarded Final Diagnosis/Problems List Abdominal pain secondary to large to duodenal ulcer Secondary diagnosis: -abdominal pain , secondary to duodenal ulcer -history of peptic ulcer disease -hypokalemia -alcoholism -tobacco abuse -normocytic anemia -MRSA of the nares Discharge Disposition: Home Discharge Instruct/Medications Diet: Regular Activity: No Restrictions, As Tolerated Follow Up/Referral: PCP at scheduled appointment Dr. In. Zimmer in 2-3 weeks Medications: Carafate 1 g tab a.c. and HS Protonix 40 mg p.o. b.i.d. times 30 36 Discharge Statement: "Patient was advised to return to the ER or call 911 if any headaches, dizziness, shortness of breath, chest pain, abdominal pain, bleeding, fevers, or worsening of medical condition. Patient was counseled about treatment plan, medications, possible side effects, patientverbalized understanding. All questions were answered to the best of my ability. This discharge took greater then 30 minutes in planning, reviewing documentation, counseling the patient, and discussing with other team members." ASSESSMENT ASSESSMENT Assessment Abdominal pain secondary to large to duodenal ulcer Date of Service: Sep 02, 2024 Billing Provider: EDYTA DUMONT NP Common Visit Codes: 75724-UDB/OBS DISCH DAY >30min EDYTA DUMONT NP Sep 02, 2024 09:17
[2024-09-02] MEDS ORDERED: HYDR-4902 PO ×2 (09:19)
[2024-09-02] MEDS ORDERED: SUCR1TAB31 OR ×2 (09:19)
[2024-09-02] MEDS ORDERED: PANT40TA2 PO ×2 (09:19)
[2024-09-02 11:13] VITALS: BP 143/82; TEMP 36.6
[2024-09-02 13:00] VITALS: BP 130/73; PULSE 99; RESP 17; TEMP 98.1; O2SAT 97
--- NOTE | 2024-09-02 17:26 | DVHPN2 ---
Progress Note - Dictate Date Seen: Sep 02, 2024 (Late entryTime of visit 12 noon) Medical Necessity Reason Pt with a Central, PICC or Fol: No Subjective No new complaints Feels better No GI bleeding, hemoglobin stable at 8.7 Tolerating soft diet vital signs Vital Sign Date Time Temp Pulse Resp B/P (MAP) Pulse Ox O2 Delivery O2 Flow Rate FiO2 09/02/24 13:00 98.1 99 17 130/73 (92) 97 98.1 09/02/24 08:00 Room Air* 0 21 Total Intake and Output 09/01/24 09/01/24 09/02/24 15:00 23:00 07:00 Intake Total 500 ml 0 ml 620 ml Balance 500 ml 0 ml 620 ml objective General Appearance: Alert, Oriented X3, Cooperative, No acute distress HEENT: Atraumatic Lungs: Clear to auscultation, Normal air movement Cardiovascular: Regular rate, Normal S1, Normal S2, No murmurs Abdomen: Normal bowel sounds, Soft, Other (Diffuse tenderness) Extremities: No edema Neuro: Normal speech, Cranial nerves 3-12 NL Psych/Mental Status: Mental status NL, Mood NL laboratory and microbiology Laboratory Tests 09/01/24 06:44 Test 09/01/24 06:44 Range/Units Serum Glucose 88 74-106 mg/dL Problems(with codes): (1) Duodenal ulcer (2) Anemia (3) Alcoholic gastritis (4) Nausea and vomiting (5) Abdominal pain Prognosis Plan Protonix 40 mg p.o. twice a day Carafate 1 g p.o. twice a day DC aspirin NSAIDs smoking alcohol Discharge planning is in progress Patient will follow up in my office in 2-4 weeks or as needed Await biopsy results Dietary Evaluation Review Recommendations by RD: Increase Calorie Intake, Protein Supplementation Comments: 1) Continue thiamin and folic acid supplementation d/t ETOH intoxication 2) Initiate Ensure clear bid 3) Advance to 2g Na diet when medically feasible, pending FORM DESIGNER approval 4) Follow-up with gastroenterology 5) Refer to group social worker r/t ETOH abuse 6) Continue to monitor I&O, labs, and skin integrity Expected Outcomes/Goals: 1) appetite and labs to improve 2) GI symptoms to resolve 3) diet to advance 4) f/u in 2-3 days Plan discussed with: Other (Nurse and Hoang) KATHY LOPEZ MD Sep 02, 2024 17:26
== END 2024-09-02 13:00 | disposition home or self-care (01) | DRG 241 ==
LOC: ER 14:39 → OVERFLOW 19:21 → WEST WING 22:21 → CENTRAL 08-30 22:41
PROVIDERS: ADMIT Nurse Practitioner Acute Care; ATTEND Nurse Practitioner Acute Care
PROC: 0DB68ZX Excision of Stomach, Via Natural or Artificial Opening Endoscopic, Diagnostic (ICD-10-PCS; 2024-09-01)
PROC: 0DB98ZX Excision of Duodenum, Via Natural or Artificial Opening Endoscopic, Diagnostic (ICD-10-PCS; principal; 2024-09-01 13:57)
DX: K26.9 Duodenal ulcer, unspecified as acute or chronic, without hemorrhage or perforation (principal); E87.20 Acidosis, unspecified; K25.3 Acute gastric ulcer without hemorrhage or perforation; D64.9 Anemia, unspecified; E87.6 Hypokalemia; D75.839 Thrombocytosis, unspecified; F41.9 Anxiety disorder, unspecified; F17.210 Nicotine dependence, cigarettes, uncomplicated; I10 Essential (primary) hypertension; I16.9 Hypertensive crisis, unspecified; Z87.11 Personal history of peptic ulcer disease; Y90.3 Blood alcohol level of 60-79 mg/100 ml; F10.129 Alcohol abuse with intoxication, unspecified; Z82.49 Family history of ischemic heart disease and other diseases of the circulatory system; Z71.6 Tobacco abuse counseling; Z79.899 Other long term (current) drug therapy
CPT/HCPCS: 36415; 43239; 74176; 74246; 80048; 80053; 80307; 80320; 81001; 83605; 83690; 83735; 84132; 84484; 85025; 87081; 96361; 96374; 96375; 99291; G0378; J1100; J1885; J2003; J2250; J2405; J2470; J2704

== ENCOUNTER 2024-09-05 13:02 | Emergency (ER) | payer MEDICAID ==
[~2024-09-05] VITALS: Ht 175.3 cm; Wt 63.5 kg
[~2024-09-05 13:02] MED LIST changes: +HYDR-4902 PO; +SUCR1TAB31 OR
--- NOTE | 2024-09-05 13:24 | ED.PDOC ---
GI ASSESSMENT HPI Comments 54y M who presents to the ED for chief complaint of abdominal pain - pt states he has been having diffuse abdominal pain that started today with associated nasuea, vomiting and diarrhea - pt states the vomit contained blood grossly which started today - pt states his abdominal pain is sharp and pressure like in nature - pt has been to [facility] multiple times for similar complaints and discharged - pt has the following discharge summary after discharge on 09/02/24: 54-year-old male presents for evaluation of abdominal pain. Patient was discharged yesterday for similar symptoms. He now returns with a one day history of nausea and vomiting and lower abdominal pain. Denies fever or chills. No cardiac or respiratory complaints. Course of hospitalization: Patient was treated with PPI and Carafate as well as clear liquid diet. Patient also was seen by Gastroenterology, undergoing EGD yesterday with the following findings: POSTOPERATIVE DIAGNOSES: 1. 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 Mild to moderate antral gastritis with pre-pyloric antral gastric erosions and tiny ulcers 3. There was a 2 cm sliding-type hiatal hernia with no significant erosive esophagitis 4. Otherwise normal examination up to the 2nd and 3rd part of the duodenum Following EGD, patient had upper GI series which was negative for any extravasation of contrast. Patient was giving lifestyle modification education regarding smoking cessation as well as alcohol intake. Patient verbalized understanding and will attempt to decrease uses about nicotine and alcohol. Patient will be discharged today, continued with current treatment with PPI and Carafate as well as being prescribed [place] 5/325 for abdominal pain. He was instructed to follow up with his established PCP appointment as well as Dr. Caitlin Zimmer in 2-3 weeks. All questions answered. Past medical history: Final Diagnosis/Problems List Abdominal pain secondary to large to duodenal ulcer Secondary diagnosis: -abdominal pain , secondary to duodenal ulcer -history of peptic ulcer disease -hypokalemia -alcoholism -tobacco abuse -normocytic anemia -MRSA of the nares past surgical history: denies Medications: denies Allergies: nkda Social history: denies ETOH, denies tobacco use, denies drug use HPI: Poor Historian. REVIEW OF SYSTEMS: CONSTITUTIONAL: Denies acute: fever, diaphoresis, chills, HEAD: Denies acute: headache, photophobia Eyes: Denies acute: Double vision, vision loss, eye pain, eye discharge. EARS: Denies acute: tinnitus, hearing loss, ear discharge, ear pain, THROAT: Denies acute: sore throat, swelling, difficulty swallowing , pain with swallowing, change in voice. NECK: Denies acute: neck pain, neck swelling, stiff neck. HEART: Denies acute : chest pain, palpitations, LUNGS: Denies acute: SOB, wheezing, cough, hemoptysis ABDOMEN: Denies acute: diarrhea, melena , hematemesis, hematochezia SKIN: Denies acute: rash, redness, lesions, itchiness. EXTREMITIES: Denies acute: calf pain, numbness, tingling, weakness, denies pain in extremity. Denies acute: Low back pain. Neuro: Denies acute: focal neurological deficit, motor or sensory focal neurological deficit, tremors, seizure like activity, confusion, dizziness, change in mental status, loss of bowel or bladder function, cauda equina like symptoms. : Denies acute: dysuria, hematuria, flank pain, increase in urinary frequency. PSYCH: Denies acute: hallucination, suicidal ideation, homicidal ideation. PHYSICAL EXAM: General: ----[id number]----acute distress, awake and alert. Head: normocephalic, atraumatic. Neck: supple, trachea is midline, no swelling. Throat: Normal phonation. Eyes:, no erythema, no purulent discharge, no proptosis, no icterus. Heart: regular rate, regular rhythm, no significant murmur appreciated. Lungs: no apparent respiratory distress, Able to speak in full sentences. No wheezing, no rhonchi, no crackles. No stridors Clear to auscultation bilaterally. Abdomen: Generalized diffuse tender to palpation, non distended, soft, no guarding, no rebound, + bowel sounds. Neuro: Awake, Alert, oriented to name, self, situation, follows commands GCS=15. Speech is normal. Skin: no petechia, no purpura, no cyanosis, non-pale, not jaundice. Lower extremities: --no - Pitting edema no deformity, no focal swelling, no calf TTP. Makes eye contact. moves all four extremities. Face: no apparent facial droop. ED COURSE: Chief Complaint: Abdominal Pain Time Seen by MD: 13:30 Primary Care Provider: [email or web address] Reviewed Notes: Nurses Notes, Medications, Allergies Allergies: Coded Allergies: NO KNOWN ALLERGIES (Unverified , 04/16/20) Home Meds Active Scripts Hydrocodone-Acetaminophen (Hydrocodone Bitartrate/AC 5-325 mg) 1 Tab Tab, 1 TAB PO Q8HP PRN for 7 Days, #21 TAB Prov:EDYTA DUMONT NP 09/02/24 Pantoprazole Sodium Sesquihydr (Protonix) 40 Mg Tab, 40 MG PO BID for 30 Days, #60 TAB 1 Refill Prov:EDYTA DUMONT NP 09/02/24 Sucralfate (CARAFATE) 1 Gm Tab, 1 GM OR ACHS for 60 Days, #240 TAB Prov:EDYTA DUMONT NP 09/02/24 Metronidazole (Flagyl) 500 Mg Tab, 500 MG PO TID for 5 Days, #15 TAB Prov:ALLEN LOOMIS MD 08/28/24 Amoxicillin & Pot Clavulanate (AUGMENTIN TABLET) 875 Mg Tb, 875 MG PO BID for 5 Days, #10 TAB Prov:ALLEN LOOMIS MD 08/28/24 Pantoprazole Sodium Sesquihydr (Protonix) 40 Mg Tab, 40 MG PO BID for 30 Days, #60 TAB Prov:ALBERTA MCNULTY RESIDENT 08/11/24 Sucralfate (Carafate) 1 Gm/10 Ml Shirin, 10 ML PO QID for 30 Days, #1200 ML Prov:ALBERTA MCNULTY RESIDENT 08/11/24 Information Source: Patient Mode of Arrival: Ambulatory Past Medical History PAST MEDICAL HISTORY: Anemia, Anxiety, Depression, HTN, PUD Surgical History: Denies all surgeries Family History Family History: Family hx of Cancer Social History Smoker: Cigarettes Alcohol: Heavy Drugs: Denies Drug Use Lives In: Home Was a procedure done? Was a procedure done?: No GI differential Dx Differential Diagnosis: Other (DDX include but not limited to diverticulitis, colitis, gastroenteritis, acute abdomen, SBO, enteritis, constipation, volvulus, appendicitis, Gallbladder disease, choledocolithiasis, ascending cholangitis, pancreatitis, intraAbdominal mass/neoplasm, hepatitis, UTI, pylonephritis, kidney stone, aneurysm, dissection, Inflammatory bowel disease, gastroparesis, ischemic bowel.) X-Ray, Labs, Meds, VS Vital Signs Date Time Temp Pulse Resp B/P (MAP) Pulse Ox O2 Delivery O2 Flow Rate FiO2 09/05/24 16:00 98 09/05/24 15:00 78 14 179/101 (127) 98 09/05/24 14:00 99 20 100 Room Air* 0 21 09/05/24 13:35 186/106 09/05/24 13:33 98.4 88 12 186/106 (132) 100 98.4 09/05/24 13:30 91 09/05/24 13:24 86 09/05/24 13:15 98.6 117 24 128/107 (114) 100 98.6 Lab Test 09/05/24 16:14 09/05/24 14:15 09/05/24 13:57 09/05/24 13:13 Range/Units Troponin I High Sensitivity 4 3 L < 3 L </=54 ng/L Urine Color Yellow Yellow Urine Clarity Turbid H Clear Urine pH 8.0 5.0-9.0 Urine Specific [place] 1.020 1.001-1.035 Urine Protein Negative Negative Urine Ketones Trace Negative Urine Blood Negative Negative /uL Urine Nitrite Negative Negative Urine Bilirubin Negative Negative Urine Urobilinogen Normal Negative mg/dL Urine Leukocyte Esterase Negative Negative /uL Urine RBC 1 0 - 3 /hpf Urine Microscopic WBC 3 0-3 /HPF Urine Squamous Epithelial Cells None seen <5 /hpf Urine Bacteria Few H None Seen /hpf Urine Glucose Normal Normal mg/dL Urine Opiates Screen Pos NEGATIVE Urine Fentanyl Screen Neg NEGATIVE Urine Barbiturates Screen Neg NEGATIVE Urine Phencyclidine Screen Neg NEGATIVE Urine Amphetamines Screen Neg NEGATIVE Urine Benzodiazepines Screen Neg NEGATIVE Urine Cocaine Screen Neg NEGATIVE Urine Cannabinoids Screen Neg NEGATIVE White Blood Count 9.0 # 4.4-10.8 10^3/uL Red Blood Count 3.52 L 4.5-5.90 10^6/uL Hemoglobin 10.0 L 13.5-17.5 g/dL Hematocrit 30.1 #L 41.0-53.0 % Mean Corpuscular Volume 85.3 80.0-100.0 fL Mean Corpuscular Hemoglobin 28.3 28.0-32.0 pg Mean Corpuscular Hemoglobin Concent 33.2 32.0-36.0 g/dL Red Cell Distribution Width 19.3 H 11.8-14.3 % Platelet Count 597 H 140-450 10^3/uL Mean Platelet Volume 7.4 6.9-10.8 fL Neutrophils (%) (Auto) 61.6 37.0-80.0 % Lymphocytes (%) (Auto) 24.9 10.0-50.0 % Monocytes (%) (Auto) 11.0 0.0-12.0 % Eosinophils (%) (Auto) 1.9 0.0-7.0 % Basophils (%) (Auto) 0.6 0.0-2.0 % Neutrophils # (Auto) 5.6 1.6-8.6 10 ^3/uL Lymphocytes # (Auto) 2.2 0.4-5.4 10 ^3/uL Monocytes # (Auto) 1.0 0-1.3 10 ^3/uL Eosinophils # (Auto) 0.2 0-0.8 10 ^3/uL Basophils # (Auto) 0.1 0-0.2 10 ^3/uL Nucleated Red Blood Cells 0.0 % Sodium Level 138 136-145 mmol/L Potassium Level 3.9 3.5-5.1 mmol/L Chloride Level 105 98-107 mmol/L Carbon Dioxide Level 26 20-31 mmol/L Anion Gap 7 5-15 Blood Urea Nitrogen 12 9-23 mg/dL Creatinine 0.76 0.700-1.30 mg/dL Glomerular Filtration Rate Calc 107 >90 mL/min BUN/Creatinine Ratio 15.8 10.0-20.0 Serum Glucose 107 H 74-106 mg/dL Lactic Acid Level 1.9 0.4-2.0 mmol/L Calcium Level 10.2 8.7-10.4 mg/dL Magnesium Level 1.9 1.6-2.6 mg/dL Total Bilirubin 0.3 0.2-1.0 mg/dL Aspartate Amino Transferase (AST) 15 13-40 U/L Alanine Aminotransferase (ALT) < 9 7-40 U/L Alkaline Phosphatase 63 46-116 U/L Total Protein 7.2 5.7-8.2 g/dL Albumin 4.8 3.2-4.8 g/dL Lipase 27 12-53 U/L Plasma/Serum Blood Alcohol < 3.0 <10 mg/dL Current Medications Medications (Trade) Dose Ordered Sig/Rick Route Start Time Stop Time Status Last Admin Sodium Chloride 1,000 ml @ 1,000 mls/hr Q1H ONCE IV 09/05/24 13:15 09/05/24 14:14 DC 09/05/24 13:33 Ondansetron HCl (Zofran) 8 mg ONCE ONCE IV 09/05/24 13:15 09/05/24 13:16 DC 09/05/24 13:33 Fentanyl Citrate 100 mcg ONCE ONCE IV 09/05/24 13:15 09/05/24 13:16 DC 09/05/24 13:35 [place] [address] Ph: [phone] DIAGNOSTIC IMAGING Diagnostic Imaging Report : [id number] Signed PATIENT: DALTON MANCINIT: [id number] UNIT: [id number] : 1970 LOC: ER ROOM / BED: / AGE / SEX: 54 / M ADM STATUS: REG ER SERVICE 1304 ORDERING PHYSICIAN: CECI ROJAS DO PROCEDURE(s): ABPL - CT AB PEL WO CON-NO ORAL OR IV REASON: abd pain ORDER NUMBER(s): [id number], ACCESSION NUMBER(s): [id number] CT CT AB PEL WO CON-NO ORAL OR IV INDICATION: abd pain EXAM DATE: 09/05/2024 01:54 PM COMPARISON: CT CT AB PEL WO CON-NO ORAL OR IV on DOS: 08/29/24, CT CT AB PEL WO CON-NO ORAL OR IV on DOS: 08/21/24, CT CT AB PEL WO CON-NO ORAL OR IV on DOS: 08/18/24 RADIATION DOSE: CTDIvol: 5.32 mGy, DLP: 248.37 mGy*cm PROCEDURE: Helical CT images were obtained of the abdomen and pelvis without IV contrast Sagittal and coronal reconstructions are provided. ORAL CONTRAST: None. ADDITIONAL IMAGES / REFORMATS: None All CT scans at this medical facility are performed using dose modulation techniques as appropriate to a performed exam including the following: Automated exposure control was utilized; adjustment of the MA and/or KV according to patient size; and use of iterative reconstruction technique. FINDINGS: LUNG BASE: Normal. LIVER: Normal. Subcentimeter hypodense cystic lesion too small to characterize. GALLBLADDER AND BILIARY TREE: No calcified gallstones. Normal caliber wall. No intra- or extrahepatic biliary ductal dilation. PANCREAS: Normal. SPLEEN: Normal. BOWEL: Normal. Normal appendix. ADRENALS: Normal. KIDNEYS AND URETER: Normal. BLADDER: Normal. REPRODUCTIVE ORGANS: Normal. LYMPH NODES:No lymphadenopathy. PERITONEUM: No ascites or free air. No other fluid collection. VESSELS: Scattered atherosclerotic calcifications are noted. RETROPERITONEUM: Normal. ABDOMINAL WALL: Normal. BONES: Scattered osseous degenerative changes are noted. IMPRESSION: No acute intraabdominal abnormality. ATED BY: LUIZ ISAAC MD DICTATED DATE/TIME: 09/05/241430 SIGNED BY: LUIZ ISAAC MD SIGNED DATE/TIME: 09/05/241430 CC: Time of 1ST Reevaluation: 17:20 Reevaluation 1ST: Improved Patient Education/Counseling: Diagnosis, Treatment Family Education/Counseling: No Family Present Comments Patient presented with the above HPI.--recurrent chronic abdominal pain with nausea and vomiting----workup was initiated. patient was found with the above mentioned diagnosis. the following medications were ordered: please refer to order lists of meds and tests obtained by myself Dr. Rojas. Patient ED course and VS have been stabilized. Patient has been reassessed in the ED and remained in a stable condition. Pertinent incidental findings were discussed with the patient and/or family. Patient/family voices understanding and is agreeable with plan. Patient has been observed in the ED adequate length of time to insure improvement/stability. Escalation of care considered: Consideration of escalation to observation or admission Patient was DISCHARGED home in a stable condition. All the reports of any imaging studies that were ordered by myself were reviewed by myself. Departure 1 Departure Time of Disposition: 15:52 Impression: Primary Impression: Chronic abdominal pain Additional Impression: Nausea and vomiting Disposition: 01 HOME / SELF CARE / HOMELESS Condition: Stable Additional Instructions: Additional discharge instructions: You MUST follow-up with your primary care/family doctor in 1 to 2 days. If you are unable to see your primary care/family doctor, please return to our emergency room for re-assessment and re-evaluation in 1 to 2 days. Return to the emergency room here in our facility or to the nearest ER AME if your symptoms change or worsen. CONSULTATIONS: you MUST Follow-up for consultation as soon as possible with: -gastroenterology and general surgery in 1-2 days. Please call for appointment. You MUST call the consultants office yourself to make an appointment. You may need to arrange that through your insurance and/or your primary/family doctor. If you are unable to see the weight loss consultant in 1 to 2 days, you must return to our emergency room (or any other ER of your choice) for re-assessment and re- evaluation. Adequate fluid hydration. Patient was already on antibiotics. Below is a copy of your radiological report for follow up: [place] [address] Ph: [phone] DIAGNOSTIC IMAGING Diagnostic Imaging Report : [id number] Signed PATIENT: DALTON MANCINI ACCT: [id number] UNIT: [id number] : 1970 LOC: ER ROOM / BED: / AGE / SEX: 54 / M ADM STATUS: REG ER SERVICE 1304 ORDERING PHYSICIAN: CECI ROJAS DO PROCEDURE(s): ABPL - CT AB PEL WO CON-NO ORAL OR IV REASON: abd pain ORDER NUMBER(s): [id number], ACCESSION NUMBER(s): [id number] CT CT AB PEL WO CON-NO ORAL OR IV INDICATION: abd pain EXAM DATE: 09/05/2024 01:54 PM COMPARISON: CT CT AB PEL WO CON-NO ORAL OR IV on DOS: 08/29/24, CT CT AB PEL WO CON-NO ORAL OR IV on DOS: 08/21/24, CT CT AB PEL WO CON-NO ORAL OR IV on DOS: 08/18/24 RADIATION DOSE: CTDIvol: 5.32 mGy, DLP: 248.37 mGy*cm PROCEDURE: Helical CT images were obtained of the abdomen and pelvis without IV contrast Sagittal and coronal reconstructions are provided. ORAL CONTRAST: None. ADDITIONAL IMAGES / REFORMATS: None All CT scans at this medical facility are performed using dose modulation techniques as appropriate to a performed exam including the following: Automated exposure control was utilized; adjustment of the MA and/or KV according to patient size; and use of iterative reconstruction technique. FINDINGS: LUNG BASE: Normal. LIVER: Normal. Subcentimeter hypodense cystic lesion too small to characterize. GALLBLADDER AND BILIARY TREE: No calcified gallstones. Normal caliber wall. No intra- or extrahepatic biliary ductal dilation. PANCREAS: Normal. SPLEEN: Normal. BOWEL: Normal. Normal appendix. ADRENALS: Normal. KIDNEYS AND URETER: Normal. BLADDER: Normal. REPRODUCTIVE ORGANS: Normal. LYMPH NODES:No lymphadenopathy. PERITONEUM: No ascites or free air. No other fluid collection. VESSELS: Scattered atherosclerotic calcifications are noted. RETROPERITONEUM: Normal. ABDOMINAL WALL: Normal. BONES: Scattered osseous degenerative changes are noted. IMPRESSION: No acute intraabdominal abnormality. ATED BY: LUIZ ISAAC MD DICTATED DATE/TIME: 09/05/24 143 SIGNED BY: LUIZ ISAAC MD SIGNED DATE/TIME: 09/05/24 1431 CC: Discharged With: Self Critical Care Note Critical Care Time?: No I personally scribed for CECI ROJAS DO ([email or web address]) on 09/05/24 at 13:24. Electronically submitted by Fernanda Magaña ([email or web address]). I personally scribed for CECI ROJAS DO ([email or web address]) on 09/05/24 at 13:45. Electronically submitted by Fernanda Magaña ([email or web address]). I personally scribed for CECI ROJAS DO ([email or web address]) on 09/05/24 at 13:48. Electronically submitted by Fernanda Magaña ([email or web address]). I personally scribed for CECI ROJAS DO ([email or web address]) on 09/05/24 at 14:39. Electronically submitted by Fernanda Magaña ([email or web address]). CECI ROJAS DO Sep 05, 2024 13:24
--- NOTE | 2024-09-05 13:26 | ECG ---
[facility] Test Date: 2024-09-05 Test Time: 13:24:07 Pat Name: DALTON MANCINI Department: ER Room: Gender: M [employer] Operator: PASCALE : 1970 Requested By: CECI ROJAS Order Number: [id number] Reading MD: Harry Rao Measurements Intervals [place] Rate: 86 P: 79 HI: 138 QRS: 69 QRSD: 88 T: 60 QT: 361 QTc: 432 Interpretive Statements Sinus rhythm Electronically Signed On 09-05-2024 18:20:27 PDT by Harry Rao Please click the below link to view image of tracing.
[2024-09-05 13:33] VITALS: TEMP 98.4
[2024-09-05] MEDS: SODIUM CHLORIDE 0.9% 1,000 ML IV ONE (13:33)
[2024-09-05] MEDS: ONDANSETRON HCL 4 MG/2 ML VIAL IV ONE (13:33)
[2024-09-05] MEDS: fentaNYL CITRATE 100 MCG/2 ML VL IV ONE (13:35)
[2024-09-05 13:44] LABS: Basophils # (auto) 0.1 10 ^3/uL (0-0.2); Eosinophils # (auto) 0.2 10 ^3/uL (0-0.8); Eosinophils % (auto) 1.9 % (0.0-7.0)
[2024-09-05 13:46] LABS: Basophils % (auto) 0.6 % (0.0-2.0); Hematocrit 30.1 % (41.0-53.0); Lymphocytes # (auto) 2.2 10 ^3/uL (0.4-5.4); Lymphocytes % (auto) 24.9 % (10.0-50.0); Mean Corpuscular Hemoglobin 28.3 pg (28.0-32.0); Mean Corpuscular Hgb Conc. 33.2 g/dL (32.0-36.0); Mean Corpuscular Volume 85.3 fL (80.0-100.0); Neutrophils # (auto) 5.6 10 ^3/uL (1.6-8.6); Neutrophils % (auto) 61.6 % (37.0-80.0); Platelet Count (auto) 597 10^3/uL (140-450); Red Blood Cells 3.52 10^6/uL (4.5-5.90); Red Cell Distribution Width 19.3 % (11.8-14.3)
[2024-09-05 14:00] VITALS: PULSE 99; RESP 20; O2SAT 100
[2024-09-05 14:02] LABS: Alkaline Phosphatase 63 U/L (46-116); Anion Gap 7 (5-15); Aspartate Aminotransferase 15 U/L (13-40); BUN/Creatinine Ratio 15.8 (10.0-20.0); Blood Urea Nitrogen 12 mg/dL (9-23); Calcium 10.2 mg/dL (8.7-10.4); Carbon Dioxide 26 mmol/L (20-31); Chloride 105 mmol/L (98-107); Potassium 3.9 mmol/L (3.5-5.1); Sodium 138 mmol/L (136-145); Total Protein 7.2 g/dL (5.7-8.2)
[2024-09-05 14:03] LABS: Alanine Aminotransferase < 9 U/L (7-40); Glucose 107 mg/dL (74-106)
[2024-09-05 14:04] LABS: Albumin 4.8 g/dL (3.2-4.8); Bilirubin, Total 0.3 mg/dL (0.2-1.0)
--- NOTE | 2024-09-05 14:33 | DVH ---
CT CT AB PEL WO CON-NO ORAL OR IV INDICATION: abd pain EXAM DATE: 09/05/2024 01:54 PM COMPARISON: CT CT AB PEL WO CON-NO ORAL OR IV on DOS: 08/29/24, CT CT AB PEL WO CON-NO ORAL OR IV on D OS: 08/21/24, CT CT AB PEL WO CON-NO ORAL OR IV on DOS: 08/18/24 RADIATION DOSE: CTDIvol: 5.32 mGy, DLP: 248.37 mGy*cm PROCEDURE: Helical CT images were obtained of the abdomen and pelvis without IV contrast Sagittal and coronal reconstructions are provided. ORAL CONTRAST: None. ADDITIONAL IMAGES / REFORMATS: None All C T scans at this medical facility are performed using dose modulation techniques as appropriate to a p erformed exam including the following: Automated exposure control was utilized; adjustment of the MA and/or KV according to patient size; and use of iterative reconstruction technique. FINDINGS: LUNG BASE: Normal. LIVER: Normal. Subcentimeter hypodense cystic lesion too small to characterize. GALLBLADDER AND BILIARY TREE: No calcified gallstones. Normal caliber wall. No intra- or extrahepatic biliary ductal dilation. PANCREAS: Normal. SPLEEN: Normal. BOWEL: Normal. Normal appendix. ADRENALS: Normal. KIDNEYS AND URETER: Normal. BLADDER: Normal. REPRODUCTIVE ORGANS: Normal. LYMPH NODES:No lymphadenopathy. PERITONEUM: No ascites or free air. No other fluid collection. VESSELS: Scattered atherosclerotic calcifications are noted. RETROPERITONEUM: Normal. ABDOMINAL WALL: Normal. BONES: Scattered osseous degenerative changes are noted. IMPRESSION: No acute intraabdominal abnormality.
[2024-09-05 14:55] LABS: Urine Bacteria FEW /hpf (None Seen); Urine Blood Negative /uL (Negative); Urine Clarity Turbid (Clear); Urine Protein, UAD Negative (Negative); Urine Squamous Epithelial Cell None Seen /hpf (<5); Urine Urobilinogen Normal (Negative); Urine WBC 3 /HPF (0-3)
[2024-09-05 14:56] LABS: Urine Color Yellow (Yellow)
[2024-09-05 15:00] VITALS: BP 179/101; RESP 14; O2SAT 98
[2024-09-05 15:15] LABS: Amphetamine Screen, Urine Neg (NEGATIVE); Barbiturate Scree,Urine Neg (NEGATIVE); Benzodiazephine Screen, Urine Neg (NEGATIVE); Cannabinoid Screen, Urine Neg (NEGATIVE); Cocaine Screen, Urine Neg (NEGATIVE); Opiate Scree,Urine Pos (NEGATIVE); Phencyclidine Screen, Urine Neg (NEGATIVE)
[2024-09-05 15:50] LABS: Lipase 27 U/L (12-53)
[2024-09-05 16:00] VITALS: PULSE 98
== END 2024-09-05 16:50 | disposition home or self-care (01) ==
LOC: ER 13:02
DX: G89.29 Other chronic pain (principal); R10.84 Generalized abdominal pain; R11.2 Nausea with vomiting, unspecified; R19.7 Diarrhea, unspecified; F17.210 Nicotine dependence, cigarettes, uncomplicated; I10 Essential (primary) hypertension; F41.9 Anxiety disorder, unspecified; F32.A Depression, unspecified; Z87.11 Personal history of peptic ulcer disease; Z79.899 Other long term (current) drug therapy
CPT/HCPCS: 36415; 74176; 80053; 80307; 80320; 81001; 83605; 83690; 83735; 84484; 85025; 93005; 96361; 96374; 96375; 99285; J2405; J3010; J7030

== ENCOUNTER 2024-09-08 10:20 | Inpatient (IN) | payer MEDICAID ==
[~2024-09-08] VITALS: Ht 175.3 cm; Wt 57.0 kg
--- NOTE | 2024-09-08 10:40 | ED.PDOC ---
GI ASSESSMENT HPI Comments 54 y/o male presents to the ED for CC of abdominal pain. Patient states, that he has been experiencing 10/10 LLQ abdominal pain for the past hour. Patient relays and that he was seen at [facility] on 09/05/24 for DX: Abdominal Pain; symptoms have since returned. Patient comments that his symptoms are not as bad as the previous visit. Patient denies weakness, melena, hematemesis, body-aches, or diarrhea. No other symptoms or modifying factors at this time. Chief Complaint: Abdominal Pain Time Seen by MD: 10:40 Primary Care Provider: VLADISLAV Reviewed Notes: Nurses Notes, Medications, Allergies Allergies: Coded Allergies: NO KNOWN ALLERGIES (Unverified , 04/16/20) Home Meds Active Scripts Hydrocodone-Acetaminophen (Hydrocodone Bitartrate/AC 5-325 mg) 1 Tab Tab, 1 TAB PO Q8HP PRN for 7 Days, #21 TAB Prov:EDYTA DUMONT NP 09/02/24 Pantoprazole Sodium Sesquihydr (Protonix) 40 Mg Tab, 40 MG PO BID for 30 Days, #60 TAB 1 Refill Prov:EDYTA DUMONT NP 09/02/24 Sucralfate (CARAFATE) 1 Gm Tab, 1 GM OR ACHS for 60 Days, #240 TAB Prov:EDYTA DUMONT NP 09/02/24 Metronidazole (Flagyl) 500 Mg Tab, 500 MG PO TID for 5 Days, #15 TAB Prov:ALLEN LOOMIS MD 08/28/24 Amoxicillin & Pot Clavulanate (AUGMENTIN TABLET) 875 Mg Tb, 875 MG PO BID for 5 Days, #10 TAB Prov:ALLEN LOOMIS MD 08/28/24 Pantoprazole Sodium Sesquihydr (Protonix) 40 Mg Tab, 40 MG PO BID for 30 Days, #60 TAB Prov:ALBERTA MCNULTY 08/11/24 Sucralfate (Carafate) 1 Gm/10 Ml Shirin, 10 ML PO QID for 30 Days, #1200 ML Prov:ALBERTA MCNULTY 08/11/24 Information Source: Patient Mode of Arrival: Ambulatory Timing: Months Duration: Intermittent Prehospital treatment: None Quality: Sharp Vomitus: None Stool: Normal Severity: Moderate Recent: Ingestion of ETOH Recent Hx of: None Pain Location: LLQ Modifying Factors: Nothing Associated sign and symptoms: Abdominal Pain Past Medical History PAST MEDICAL HISTORY: Anemia, Anxiety, Depression, HTN, PUD Surgical History: Denies all surgeries Family History Family History: Reviewed,noncontributory to illness, Family hx of Cancer Social History Smoker: Cigarettes Alcohol: Heavy Drugs: Denies Drug Use Lives In: Home Constitutional: denies: chills, diaphoresis, fatigue, fever, malaise, sweats, weakness, others EENTM: denies: blurred vision, double vision, ear bleeding, ear discharge, ear drainage, ear pain, ear ringing, eye pain, eye redness, hearing loss, mouth pain, mouth swelling, nasal discharge, nose bleeding, nose congestion, nose pain, photophobia, tearing, throat pain, throat swelling, voice changes, others Respiratory: denies: cough, hemoptysis, orthopnea, SOB at rest, shortness of breath, SOB with excertion, stridor, wheezing, others Cardiovascular: denies: chest pain, dizzy spells, diaphoresis, Dyspnea on exertion, edema, irregular heart beat, left arm pain, lightheadedness, palpitations, PND, syncope, others Gastrointestinal: reports: abdominal pain; denies: abdomen distended, blood streaked bowels, constipated, diarrhea, dysphagia, difficulty swallowing, hemate mesis, melena, nausea, poor appetite, poor fluid intake, rectal bleeding, rectal pain, vomiting, others Genitourinary: denies: burning, dysuria, flank pain, frequency, hematuria, incontinence, penile discharge, penile sore, pain, testicle pain, testicle swelling, urgency, others Neurological: denies: dizziness, fainting, headache, left sided numbness, left sided weakness, numbness, paresthesia, pre-existing deficit, right sided numbness, right sided weakness, seizure, speech problems, tingling, tremors, weakness, others Musculoskeletal: denies: back pain, gout, joint pain, joint swelling, muscle pain, muscle stiffness, neck pain, others Integumetry: denies: bruises, change in color, change in hair/nails, dryness, laceration, lesions, lumps, rash, wounds, others Allergic/Immunocompromised: denies: Difficulty Healing, Frequent Infections, Hives, Itching, others Hematologic/Lymphatic: denies: anemia, blood clots, easy bleeding, easy bruising, swollen glands, others Endocrine: denies: excessive hunger, excessive sweating, excessive thirst, excessive urination, flushing, intolerance to cold, intolerance to heat, u nexplained weight gain, unexplained weight loss, others Psychiatric: denies: anxiety, bipolar disorder, depression, hopeless, panic disorder, schizophrenia, sleepless, suicidal, others All Other Systems: Reviewed and Negative Physical Exam General Appearance: Moderate Distress HEENT: Normal ENT Inspection, Pharynx Normal, TMs Normal Neck: Full Range of Motion, Non-Tender, Normal, Normal Inspection Respiratory: Chest Non-Tender, Lungs Clear, No Accessory Muscle Use, No Respiratory Distress, Normal Breath Sounds Cardiovascular: No Edema, No JVD, No Murmur, No Gallop, Normal Peripheral Pulses, Regular Rate/Rhythm Breast Exam: Deferred Gastrointestinal: Diffuse, No Organomegaly, Normal Bowel Sounds, Soft, Tenderness Genitalia: Deferred Pelvic: Deferred Rectal: Deferred Extremities: No calf tenderness, Normal capillary refill, Normal inspection, N ormal range of motion, Non-tender, No pedal edema Musculoskeletal : Apperance: Normal Neurologic: Alert, early childhood lead teacher II-XII nml as Tested, No Motor Deficits, Normal Affect, Normal Mood, No Sensory Deficits Cerebellar Function: Normal Reflexes: Normal Skin: Dry, Normal Color, Warm Lymphatic: No Adenopathy Was a procedure done? Was a procedure done?: No GI differential Dx Differential Diagnosis: Appendicitis, Gastritis/PUD, Gastroenteritis, Pancreatitis, Electrolyte Imbalance, Food Poisoning X-Ray, Labs, Meds, VS Vital Signs Date Time Temp Pulse Resp B/P (MAP) Pulse Ox O2 Delivery O2 Flow Rate FiO2 09/08/24 10:34 99.5 98 18 126/94 (105) 99 99.5 Lab Test 09/08/24 11:07 09/08/24 10:30 Range/Units White Blood Count 7.8 4.4-10.8 10^3/uL Red Blood Count 3.38 L 4.5-5.90 10^6/uL Hemoglobin 9.2 L 13.5-17.5 g/dL Hematocrit 28.9 L 41.0-53.0 % Mean Corpuscular Volume 85.5 80.0-100.0 fL Mean Corpuscular Hemoglobin 27.2 L 28.0-32.0 pg Mean Corpuscular Hemoglobin Concent 31.8 L 32.0-36.0 g/dL Red Cell Distribution Width 19.9 H 11.8-14.3 % Platelet Count 526 H 140-450 10^3/uL Mean Platelet Volume 7.2 6.9-10.8 fL Neutrophils (%) (Auto) 56.7 37.0-80.0 % Lymphocytes (%) (Auto) 28.0 10.0-50.0 % Monocytes (%) (Auto) 10.8 0.0-12.0 % Eosinophils (%) (Auto) 3.5 0.0-7.0 % Basophils (%) (Auto) 1.0 0.0-2.0 % Neutrophils # (Auto) 4.4 1.6-8.6 10 ^3/uL Lymphocytes # (Auto) 2.2 0.4-5.4 10 ^3/uL Monocytes # (Auto) 0.8 0-1.3 10 ^3/uL Eosinophils # (Auto) 0.3 0-0.8 10 ^3/uL Basophils # (Auto) 0.1 0-0.2 10 ^3/uL Nucleated Red Blood Cells 0.1 % Sodium Level 141 136-145 mmol/L Potassium Level 4.0 3.5-5.1 mmol/L Chloride Level 109 H 98-107 mmol/L Carbon Dioxide Level 27 20-31 mmol/L Anion Gap 5 5-15 Blood Urea Nitrogen 21 9-23 mg/dL Creatinine 0.76 0.700-1.30 mg/dL Glomerular Filtration Rate Calc 107 >90 mL/min BUN/Creatinine Ratio 27.6 H 10.0-20.0 Serum Glucose 99 74-106 mg/dL Calcium Level 9.8 8.7-10.4 mg/dL Total Bilirubin 0.2 0.2-1.0 mg/dL Aspartate Amino Transferase (AST) 9 L 13-40 U/L Alanine Aminotransferase (ALT) < 9 7-40 U/L Alkaline Phosphatase 59 46-116 U/L Total Protein 7.1 5.7-8.2 g/dL Albumin 4.6 3.2-4.8 g/dL Lipase 29 12-53 U/L Urine Color Yellow Yellow Urine Clarity Clear Clear Urine pH 6.0 5.0-9.0 Urine Specific [place] 1.044 H 1.001-1.035 Urine Protein 1+ H Negative Urine Ketones Negative Negative Urine Blood Negative Negative /uL Urine Nitrite Negative Negative Urine Bilirubin Negative Negative Urine Urobilinogen 4 H Negative mg/dL Urine Leukocyte Esterase Negative Negative /uL Urine RBC 1 0 - 3 /hpf Urine Microscopic WBC 2 0-3 /HPF Urine Squamous Epithelial Cells Few <5 /hpf Urine Bacteria None seen None Seen /hpf Urine Mucus Few None Seen Urine Glucose Normal Normal mg/dL THE PATIENT'S CBC SHOWS ANEMIA WITH A HEMOGLOBIN OF 9.2 AND HEMATOCRIT 28.9 THE REST OF THE CBC IS WITHIN NORMAL LIMITS THE CHEMISTRY PANEL IS WITHIN NORMAL LIMITS THE URINE TEST IS NEGATIVE THE PATIENT CONTINUES TO HAVE A SIGNIFICANT AMOUNT OF ABDOMINAL PAIN DESPITE THE COMPAZINE, PROTONIX AND MORPHINE AT THIS TIME, THE PATIENT WAS BEING ADMITTED TO THE HOSPITALIST WITH A DIAGNOSIS OF INTRACTABLE ABDOMINAL PAIN THE PATIENT UNDERSTANDS AND AGREES WITH THE MANAGEMENT THE PATIENT WAS BEING ADMITTED Images Reviewed?: Images reviewed and evaluated by me Time of 1ST Reevaluation: 12:08 Reevaluation 1ST: Unchanged Patient Education/Counseling: Diagnosis, Treatment, Prognosis Family Education/Counseling: No Family Present Additional Information -Reviewed patient's previous visit(s): 09/05/24 for abdominal pain - The following tests were ordered, and results were reviewed by me: CBC, CMP, Lipase, UA - Additional information was gathered from interviewing the following independent Historian: None - I reviewed and agreed with the following test results read by other provider: None - I discussed treatments and results with medical personnel and: patient Comprehensive systems review obtained and negative except for what is stated in the HPI. Departure 1 Departure Time of Disposition: 12:09 Impression: Primary Impression: Intractable abdominal pain Additional Impressions: Intractable vomiting GERD (gastroesophageal reflux disease) Qualified Codes: K21.01 - Gastro-esophageal reflux disease with esophagitis, with bleeding Disposition: ADMITTED INPATIENT Admit to: Med Surg Condition: Fair Critical Care Note Critical Care Time?: No Stability Stability form required: Yes Unstable for transfer: ED Physician Assesment (Clinical assesment) Heart Score Heart Score: Heart Score Response (Comments) Value History N/A 0 EKG N/A 0 Age N/A 0 Risk Factors N/A 0 Troponin N/A 0 Total 0 I personally scribed for SHERI SOLIS MD ([email or web address]) on 09/08/24 at 10:40. Electronically submitted by Isaías Orta ([email or web address]). I personally scribed for SHERI SOLIS MD ([email or web address]) on 09/08/24 at 11:04. Electronically submitted by Isaías Orta ([email or web address]). SHERI SOLIS MD Sep 08, 2024 10:40
[2024-09-08 10:59] LABS: Urine Bacteria None Seen /hpf (None Seen)
[2024-09-08 11:13] LABS: Urine Blood Negative /uL (Negative); Urine Clarity Clear (Clear); Urine Color Yellow (Yellow); Urine Mucus FEW (None Seen); Urine Protein, UAD 1+ (Negative); Urine Specific Gravity 1.044 (1.001-1.035); Urine Squamous Epithelial Cell FEW /hpf (<5); Urine Urobilinogen 4 mg/dL (Negative); Urine WBC 2 /HPF (0-3)
[2024-09-08 11:42] LABS: Basophils # (auto) 0.1 10 ^3/uL (0-0.2); Eosinophils # (auto) 0.3 10 ^3/uL (0-0.8); White Blood Cell 7.8 10^3/uL (4.4-10.8)
[2024-09-08 11:44] LABS: Eosinophils % (auto) 3.5 % (0.0-7.0); Hematocrit 28.9 % (41.0-53.0); Hemoglobin 9.2 g/dL (13.5-17.5); Lymphocytes # (auto) 2.2 10 ^3/uL (0.4-5.4); Mean Corpuscular Hemoglobin 27.2 pg (28.0-32.0); Mean Corpuscular Hgb Conc. 31.8 g/dL (32.0-36.0); Mean Corpuscular Volume 85.5 fL (80.0-100.0); Monocytes # (auto) 0.8 10 ^3/uL (0-1.3); Monocytes % (auto) 10.8 % (0.0-12.0); Neutrophils # (auto) 4.4 10 ^3/uL (1.6-8.6); Neutrophils % (auto) 56.7 % (37.0-80.0); Nucleated Red Blood Cells % 0.1 %; Platelet Count (auto) 526 10^3/uL (140-450); Red Blood Cells 3.38 10^6/uL (4.5-5.90); Red Cell Distribution Width 19.9 % (11.8-14.3)
[2024-09-08 11:59] LABS: Alanine Aminotransferase < 9 U/L (7-40); Albumin 4.6 g/dL (3.2-4.8); Alkaline Phosphatase 59 U/L (46-116); Anion Gap 5 (5-15); Aspartate Aminotransferase 9 U/L (13-40); BUN/Creatinine Ratio 27.6 (10.0-20.0); Bilirubin, Total 0.2 mg/dL (0.2-1.0); Blood Urea Nitrogen 21 mg/dL (9-23); Calcium 9.8 mg/dL (8.7-10.4); Carbon Dioxide 27 mmol/L (20-31); Chloride 109 mmol/L (98-107); Glucose 99 mg/dL (74-106); Lipase 29 U/L (12-53); Sodium 141 mmol/L (136-145); Total Protein 7.1 g/dL (5.7-8.2)
[2024-09-08 13:40] VITALS: PULSE 96; RESP 18; O2SAT 99
[2024-09-08] MEDS: HYDROmorphone HCL 2 MG/ML VL/or syr IV ONE ×2 (13:46→22:52)
[2024-09-08] MEDS: PROCHLORPERAZINE EDISYLATE 5 MG/ML 2ML VIAL IV ONE (13:46)
[2024-09-08] MEDS: SODIUM CHLORIDE 0.9% 1,000 ML IVB ONE (13:47)
[2024-09-08] MEDS: PANTOPRAZOLE 40 MG/10 ML VIAL INJ IV ONE ×2 (13:47→22:51)
[2024-09-08] MEDS: MORPHINE SULFATE 4 MG/ML SYR/VIAL IV ONE (18:12)
[2024-09-08] MEDS: SODIUM CHLORIDE 0.9% 1,000 ML IV ONE ×2 (18:12→22:52)
[2024-09-08] MEDS: ONDANSETRON HCL 4 MG/2 ML VIAL IV ONE (18:12)
[2024-09-08] MEDS: ONDANSETRON HCL 4 MG/2 ML VIAL IV PRN (22:51)
[2024-09-08 23:02] LABS: Hemoglobin 9.3 g/dL (13.5-17.5); Lymphocytes # (auto) 2.9 10 ^3/uL (0.4-5.4)
[2024-09-08 23:04] LABS: Basophils # (auto) 0 10 ^3/uL (0-0.2); Basophils % (auto) 0.4 % (0.0-2.0); Eosinophils # (auto) 0.4 10 ^3/uL (0-0.8); Eosinophils % (auto) 3.7 % (0.0-7.0); Hematocrit 28.4 % (41.0-53.0); Lymphocytes % (auto) 28.2 % (10.0-50.0); Mean Corpuscular Hemoglobin 27.9 pg (28.0-32.0); Mean Corpuscular Hgb Conc. 32.8 g/dL (32.0-36.0); Monocytes # (auto) 1.1 10 ^3/uL (0-1.3); Monocytes % (auto) 10.1 % (0.0-12.0); Neutrophils % (auto) 57.6 % (37.0-80.0); Platelet Count (auto) 565 10^3/uL (140-450); Red Blood Cells 3.34 10^6/uL (4.5-5.90); Red Cell Distribution Width 19.9 % (11.8-14.3); White Blood Cell 10.5 10^3/uL (4.4-10.8)
[2024-09-08 23:22] LABS: Alkaline Phosphatase 59 U/L (46-116); Anion Gap 8 (5-15); BUN/Creatinine Ratio 27.4 (10.0-20.0); Blood Urea Nitrogen 20 mg/dL (9-23); Calcium 9.7 mg/dL (8.7-10.4); Carbon Dioxide 24 mmol/L (20-31); Lipase 26 U/L (12-53); Potassium 3.6 mmol/L (3.5-5.1); Sodium 141 mmol/L (136-145); Total Protein 7.5 g/dL (5.7-8.2)
[2024-09-08 23:24] LABS: Alanine Aminotransferase < 9 U/L (7-40); Albumin 4.9 g/dL (3.2-4.8); Aspartate Aminotransferase 9 U/L (13-40); Bilirubin, Total 0.2 mg/dL (0.2-1.0); Chloride 109 mmol/L (98-107); Glucose 122 mg/dL (74-106)
--- NOTE | 2024-09-09 00:45 | DVH ---
CLINICAL HISTORY: sevee abd pain TECHNIQUE: CT of the abdomen and pelvis was performed without intravenous contrast. This exam was per formed according to our departmental dose optimization program. Up-to-date CT equipment and radiation dose reduction techniques are utilized as appropriate. CTDI: 5.32 DLP: 271.93 WID: COMPARISON: CT CT AB PEL WO CON-NO ORAL OR IV on DOS: 09/05/24 FINDINGS: Lower Thorax: Lung bases are clear. Normal-sized heart. Hypodensity of the blood pool relative to th e myocardium indicative of anemia. Liver and Biliary system: Unremarkable. Spleen: Unremarkable. Adrenal Glands and Kidneys: Unremarkable. Pancreas and Retroperitoneum: Unremarkable. Aorta and Major Vessels: Aortoiliac vessels are normal in caliber with mild calcified atherosclerotic plaque. Bowel, Mesentery and Peritoneal space: Normal caliber small and large bowel. There is mild distal col onic diverticulosis. Normal appendix. No fluid collection or free air. Pelvis: Dystrophic calcifications in the normal caliber prostate gland. Urinary bladder is mildly di stended. There is no pelvic lymphadenopathy. Abdominal wall and Osseous Structures: No destructive osseous lesion. IMPRESSION: 1. No bowel obstruction, fluid collection, or free air. Normal appendix. 2. Anemia suggested. Correlate with CBC. 3. Mild distal colonic diverticulosis.
[2024-09-09] MEDS ORDERED: hydrALAZINE HCL 20 MG/ML VL IV PRN (02:15)
[2024-09-09] MEDS: HYDROmorphone HCL 2 MG/ML VL/or syr IV PRN (04:00)
--- NOTE | 2024-09-09 05:39 | DVHHPRES ---
History of Present Illness Resident Creating Document: ALTA CASH RESIDENT History of Present Illness 54-year-old male patient with past medical history of asthma, anxiety, depression, hypertension, peptic ulcer disease, alcohol use, tobacco use disorder presented with complaints of severe abdominal pain, diffuse, radiating to back, no aggravating and relieving factors. Patient was previously admitted at [facility] where he was found to have a duodenal ulcer large. Was discharged with Protonix, was advised to discontinue alcohol and tobacco use disorder/ patient mentioned he had a cigar 2 hours before the pain started. He had associated nausea and vomiting Denied any complaints of melena, hematochezia. Denied any other complaints of headache, chest pain, shortness of breath, any musculoskeletal issues. Past medical history asthma, anxiety, depression, hypertension, peptic ulcer disease, alcohol use, tobacco use disorder PSH Denied any recent Sx Social history alcohol use, tobacco use disorder Review of Systems Constitutional: No: Fever, Chills, Sweats, Weakness, Malaise, Other Eyes: No: Pain, Vision change, Conjunctivae inflammation, Eyelid inflammation, Other, Redness ENT: No: Ear pain, Ear discharge, Nose pain, Nose discharge, Nose congestion, Mouth pain, Mouth swelling, Throat pain, Throat swelling, Other Respiratory: No: Cough, Dry, Shortness of breath, SOB with excertion, Wheezing, Hemoptysis, Pleuritic Pain, Sputum, Wheezing, Other Cardiovascular: No: Chest Pain, Palpitations, Orthopnea, Paroxysmal Noc. Dyspnea, Edema, Lt Headedness, Other Gastrointestinal: Nausea, Vomiting, Abdominal Pain; No: Diarrhea, Constipation, Melena, Hematochezia, Other Genitourinary: No Dysuria, No Frequency, No Incontinence, No Hematuria, No Retention, No Other Musculoskeletal: No: other, neck pain, shoulder pain, arm pain, back pain, hand pain, leg pain, foot pain Skin: No: Rash, Lesions, Jaundice, Bruising, Other Neurological: No: Weakness, Numbness, Incoordination, Change in speech, Confusion, Seizures, Other Allergies: Coded Allergies: NO KNOWN ALLERGIES (Unverified , 04/16/20) Medications Current Medications Medications Dose Ordered Sig/Rick Route Start Time Stop Time Status Last Admin Dose Admin Ondansetron HCl 4 mg Q4HPRN PRN IV 09/08/24 22:30 09/08/24 22:51 4 MG Hydromorphone HCl 0.25 mg Q4HPRN PRN IV 09/08/24 23:30 09/09/24 04:00 0.25 MG Hydralazine HCl 10 mg Q6HP PRN IV 09/09/24 02:15 Exam Vital Signs Vital Signs Date Time Temp Pulse Resp B/P (MAP) Pulse Ox O2 Delivery O2 Flow Rate FiO2 09/09/24 04:00 90 14 129/78 09/09/24 03:56 98.3 99 98.3 09/08/24 20:10 Room Air 09/08/24 13:40 0 21 Exam Limited exam as patient was in hallway General Appearance: Alert, Oriented X3 Respiratory: Clear to auscultation, Normal air movement Cardiovascular: Regular rate, Normal S1 Abdominal: Other (diffused abd tenderness) Neuro: Normal gait, Normal speech Labs/Xrays Labs Test 09/08/24 22:42 09/08/24 10:30 Range/Units White Blood Count 10.5 # 4.4-10.8 10^3/uL Red Blood Count 3.34 L 4.5-5.90 10^6/uL Hemoglobin 9.3 L 13.5-17.5 g/dL Hematocrit 28.4 L 41.0-53.0 % Mean Corpuscular Volume 85.0 80.0-100.0 fL Mean Corpuscular Hemoglobin 27.9 L 28.0-32.0 pg Mean Corpuscular Hemoglobin Concent 32.8 32.0-36.0 g/dL Red Cell Distribution Width 19.9 H 11.8-14.3 % Platelet Count 565 H 140-450 10^3/uL Mean Platelet Volume 7.2 6.9-10.8 fL Neutrophils (%) (Auto) 57.6 37.0-80.0 % Lymphocytes (%) (Auto) 28.2 10.0-50.0 % Monocytes (%) (Auto) 10.1 0.0-12.0 % Eosinophils (%) (Auto) 3.7 0.0-7.0 % Basophils (%) (Auto) 0.4 0.0-2.0 % Neutrophils # (Auto) 6.0 1.6-8.6 10 ^3/uL Lymphocytes # (Auto) 2.9 0.4-5.4 10 ^3/uL Monocytes # (Auto) 1.1 0-1.3 10 ^3/uL Eosinophils # (Auto) 0.4 0-0.8 10 ^3/uL Basophils # (Auto) 0 0-0.2 10 ^3/uL Nucleated Red Blood Cells 0.0 % Sodium Level 141 136-145 mmol/L Potassium Level 3.6 3.5-5.1 mmol/L Chloride Level 109 H 98-107 mmol/L Carbon Dioxide Level 24 20-31 mmol/L Anion Gap 8 5-15 Blood Urea Nitrogen 20 9-23 mg/dL Creatinine 0.73 0.700-1.30 mg/dL Glomerular Filtration Rate Calc 108 >90 mL/min BUN/Creatinine Ratio 27.4 H 10.0-20.0 Serum Glucose 122 H 74-106 mg/dL Calcium Level 9.7 8.7-10.4 mg/dL Total Bilirubin 0.2 0.2-1.0 mg/dL Aspartate Amino Transferase (AST) 9 L 13-40 U/L Alanine Aminotransferase (ALT) < 9 7-40 U/L Alkaline Phosphatase 59 46-116 U/L Total Protein 7.5 5.7-8.2 g/dL Albumin 4.9 H 3.2-4.8 g/dL Lipase 26 12-53 U/L Urine Color Yellow Yellow Urine Clarity Clear Clear Urine pH 6.0 5.0-9.0 Urine Specific [place] 1.044 H 1.001-1.035 Urine Protein 1+ H Negative Urine Ketones Negative Negative Urine Blood Negative Negative /uL Urine Nitrite Negative Negative Urine Bilirubin Negative Negative Urine Urobilinogen 4 H Negative mg/dL Urine Leukocyte Esterase Negative Negative /uL Urine RBC 1 0 - 3 /hpf Urine Microscopic WBC 2 0-3 /HPF Urine Squamous Epithelial Cells Few <5 /hpf Urine Bacteria None seen None Seen /hpf Urine Mucus Few None Seen Urine Glucose Normal Normal mg/dL Assessment/Plan Assessment/Plan Assessment/plan # intractable abdominal pain associated with nausea # history of large duodenal ulcer -NPO IV Protonix CT abdomen pelvis GI consult # asthma Stable # anxiety Continue home medication # hypertension IV hydralazine p.r.n. # alcohol use disorder Counseling for cessation #Tobacco use disorder Counseling for cessation Case discussed with Dr. Braswell Plan discussed with: Other My Orders Orders - ALTA CASH RESIDENT Procedure Category Date Status Time Admit ADMIT 09/08/24 Transmitted 22:25 Npo (Nothing By DIET 09/09/24 Transmitted Mouth) Diet Breakfast Oxygen By Nasal RT 09/08/24 Transmitted Cannula 22:[address] For Chest RD 09/08/24 In Process Pain 22:[address] 09/08/24 In Process From Base 22:25 Secondary School Teacher Librarian For RD 09/08/24 In Process 24 Hours 22:[address] 09/08/24 In Process Protocol 22:[address] 09/08/24 In Process Every Shift 22:25 Sodium Chloride 0.9% PHA 09/08/24 In Process 22:30 Ondansetron Hcl PHA 09/08/24 In Process (Zofran) 22:30 Ct Ab Pel Wo Con-No CT 09/08/24 Resulted Oral Or Iv 22:25 Hydromorphone PHA 09/08/24 In Process Injection (Dilaudid 23:30 Hydralazine Injection PHA 09/09/24 In Process (Apresoline Inject 02:15 Date of Service: Sep 08, 2024 Billing Provider: JESUS BRASWELL MD Common Visit Codes: [id number] INP/OBS CARE (HIGH) ALTA CASH RESIDENT Sep 09, 2024 05:39 JESUS BRASWELL MD Sep 09, 2024 11:18
[2024-09-09] MEDS: PANTOPRAZOLE 40 MG/10 ML VIAL INJ IV SCH (10:47)
[2024-09-09] MEDS: SUCRALFATE 1 GM/10 ML ORAL SUSP PO SCH (10:47)
--- NOTE | 2024-09-09 14:06 | DVHPNRES ---
Progress Note Date Seen: Sep 09, 2024 Resident Creating Document: GISSEL B[place]MINGHAM RESIDENT Medical Necessity Reason Pt with a Central, PICC or Fol: No Subjective Review of Systems This is a 54-year-old male patient with past medical history of asthma, anxiety, depression, hypertension, peptic ulcer disease, alcohol use, tobacco use disorder presented with complaints of severe abdominal pain, diffuse, radiating to back, no aggravating and relieving factors. Patient was previously admitted at [facility] where he was found to have a duodenal ulcer large. Was discharged with Protonix, was advised to discontinue alcohol and tobacco use disorder/ patient mentioned he had a cigar 2 hours before the pain started. He had associated nausea and vomiting and denied any complaints of melena, hematochezia. Patient was seen and examined on the bedside. He is alert oriented x3. complaint of abdominal pain and nausea. no other active complaints. Constitutional: No: Fever, Chills, Sweats, Weakness, Malaise, Other Eyes: No: Pain, Vision change, Conjunctivae inflammation, Eyelid inflammation, Other, Redness ENT: No: Ear pain, Ear discharge, Nose pain, Nose discharge, Nose congestion, Mouth pain, Mouth swelling, Throat pain, Throat swelling, Other Respiratory: Shortness of breath, improving No: Cough, Dry,Wheezing, Hemoptysis, Pleuritic Pain, Sputum, Wheezing, Other Cardiovascular: No: Chest Pain, Palpitations, Orthopnea, Paroxysmal Noc. Dyspnea, Edema, Lt Headedness, Other Gastrointestinal: Nausea, Vomiting, Abdominal Pain, No Diarrhea, Constipation, Melena, Hematochezia, Other Musculoskeletal: No: other, neck pain, shoulder pain, arm pain, back pain, hand pain, leg pain, foot pain Neurological:; No: Weakness, Numbness, Incoordination, Change in speech, Confusion, Seizures Objective vital signs Vital Sign Date Time Temp Pulse Resp B/P (MAP) Pulse Ox O2 Delivery O2 Flow Rate FiO2 09/09/24 13:48 98.2 87 20 146/83 (104) 100 98.2 09/08/24 20:10 Room Air 09/08/24 13:40 0 21 Total Intake and Output 09/08/24 09/08/24 09/09/24 15:00 23:00 07:00 Intake Total 1000 ml Balance 1000 ml medications Current Medications Medications Dose Ordered Sig/Rick Route Start Time Stop Time Status Last Admin Dose Admin Ondansetron HCl 4 mg Q4HPRN PRN IV 09/08/24 22:30 09/08/24 22:51 4 MG Hydralazine HCl 10 mg Q6HP PRN IV 09/09/24 02:15 Pantoprazole Sodium 40 mg DAILY IV 09/09/24 10:00 09/09/24 10:47 40 MG Sucralfate 1 gm QID@0600,1130,1700,2200 PO 09/09/24 11:30 09/09/24 10:47 1 GM Examination Physical examination: General Appearance: Alert, Oriented X3, Cooperative, No acute distress HEENT: Atraumatic, PERRLA, EOMI, Mucous membrane moist/pink Respiratory: Clear to auscultation, Normal air movement Cardiovascular: Regular rate, Normal S1, Normal S2, No murmurs, no chest wall tenderness Abdominal: Normal bowel sounds, Soft, mild tenderness in the epigastric region, No hepatospenomegaly, No masses Extremities: No clubbing, No cyanosis, No edema, Normal pulses, No tenderness/swelling Skin: No rashes, No breakdown, No significant lesion Neuro: Normal gait, Normal speech, Strength at 5/5 X4 ext, Normal tone, Sensation intact, Cranial nerves 3-12 NL, Reflexes 2+ Psych/Mental Status: Mental status NL, Mood NL laboratory and microbiology Laboratory Tests 09/08/24 22:42 Test 09/08/24 22:42 Range/Units Serum Glucose 122 H 74-106 mg/dL Labs and/or images reviewed: Labs reviewed by me, Image(s) reviewed by me Problem List/Assessment/Plan Problem List/Assessment/Plan Assessment and plan: # Intractable epigastric pain and nausea likely due to PUD # History of large duodenal ulcer, s/p EGD # Chronic normocytic anemia likely due to microscopic blood loss from hiatal hernia - H&H .3.4 - CT abdomen pelvis demonstrated normal study with mild distal colonic diverticulosis - EGD on 09/01/24 demonstrated a 2- 2.5 cm Brando classification C acute on chronic duodenal bulb ulcer with pyloro duodenal channel deformity and a penetrating edge of the ulcer rule ;out fistula or internal communication Mild to moderate antral gastritis with pre-pyloric antral gastric erosions and tiny ulcers and there was a 2 cm sliding-type hiatal hernia with no significant erosive esophagitis. - IV Protonix 40 mg daily and Carafate suspension 1 g p.o. q.i.d. # Hypertensive urgency # Hypertensive heart disease with chronic diastolic heart failure - IV hydralazine 10 mg q.6 p.r.n. and losartan 25 mg p.o. daily - Echo on 03/26 demonstrated EF 55% with grade 1 diastolic dysfunction. # History of anxiety / depression - Continue home meds. # Nicotine dependence - Counseled patient regarding quit smoking. # DVT prophylaxis - Hold due to the possibility of bleeding Goal of care discussed with the patient for more than 20 minutes full code Plan discussed with Dr. Reyes Plan discussed with: Patient, Other My Orders My Orders Orders - GISSEL BIRMINGHAM Procedure Category Date Status Time Pantoprazole PHA 09/09/24 In Process (Protonix) 10:00 Sucralfate Susp PHA 09/09/24 In Process (Carafate Susp) 11:30 Date of Service: Sep 09, 2024 Billing Provider: JESUS REYES MD Common Visit Codes: [id number] INP/OBS CARE(HIGH) GISSEL BIRMINGHAM Sep 09, 2024 14:06 JESUS REYES MD Sep 09, 2024 17:22
[2024-09-09] MEDS: LOSARTAN POTASSIUM 25 MG TAB PO ONE (14:37)
[2024-09-09] MEDS ORDERED: ACETAMINOPHEN 325 MG TAB PO PRN (15:00)
[2024-09-09 15:06] VITALS: BP 163/95; PULSE 84; RESP 19; TEMP 98.3; O2SAT 99
[2024-09-09 17:00] VITALS: BP 132/77; PULSE 104; RESP 18; TEMP 98.5; O2SAT 99
[2024-09-09] MEDS ORDERED: HYDROcodone-ACET 5/325MG TAB PO PRN (19:45)
[2024-09-09 21:00] VITALS: BP 145/86; PULSE 73; RESP 20; TEMP 98; O2SAT 100
[2024-09-09] MEDS: HYDROcodone-ACET 5/325MG TAB PO PRN (21:15)
--- NOTE | 2024-09-09 22:24 | DVHINCON2 ---
Date of service: Sep 09, [address] Hicks Reason for Consultation PUD and abdominal pain Family History: Cardiovascular disease G8 MOTHER FH: renal failure G8 FATHER Graves' disease G8 BROTHER Malignant neoplasm of ovary G8 MOTHER Allergies: Coded Allergies: NO KNOWN ALLERGIES (Unverified , 04/16/20) Home Meds Active Scripts Hydrocodone-Acetaminophen (Hydrocodone Bitartrate/AC 5-325 mg) 1 Tab Tab, 1 TAB PO Q8HP PRN for 7 Days, #21 TAB Prov:EDYTA DUMONT NP 09/02/24 Pantoprazole Sodium Sesquihydr (Protonix) 40 Mg Tab, 40 MG PO BID for 30 Days, #60 TAB 1 Refill Prov:EDYTA DUMONT NP 09/02/24 Sucralfate (CARAFATE) 1 Gm Tab, 1 GM OR ACHS for 60 Days, #240 TAB Prov:EDYTA DUMONT NP 09/02/24 Metronidazole (Flagyl) 500 Mg Tab, 500 MG PO TID for 5 Days, #15 TAB Prov:ALLEN LOOMIS MD 08/28/24 Amoxicillin & Pot Clavulanate (AUGMENTIN TABLET) 875 Mg Tb, 875 MG PO BID for 5 Days, #10 TAB Prov:ALLEN LOOMIS MD 08/28/24 Pantoprazole Sodium Sesquihydr (Protonix) 40 Mg Tab, 40 MG PO BID for 30 Days, #60 TAB Prov:ALBERTA MCNULTY RESIDENT 08/11/24 Sucralfate (Carafate) 1 Gm/10 Ml Shirin, 10 ML PO QID for 30 Days, #1200 ML Prov:ALBERTA MCNULTY RESIDENT 08/11/24 Current Medications Current Medications Medications (Trade) Dose Ordered Sig/Rick Route PRN Reason Start Time Stop Time Status Last Admin Ondansetron HCl (Zofran) 4 mg Q4HPRN PRN IV NAUSEA / VOMITING 09/08/24 22:30 09/08/24 22:51 Hydromorphone HCl (Dilaudid Injection) 0.25 mg Q4HPRN PRN IV SEVERE PAIN (7-10 PAIN SCALE) 09/08/24 23:30 09/09/24 13:58 DC 09/09/24 04:00 Hydralazine HCl (Apresoline Injection) 10 mg Q6HP PRN IV SBP>150 09/09/24 02:15 Pantoprazole Sodium (Protonix) 40 mg DAILY IV 09/09/24 10:00 09/09/24 10:47 Sucralfate (Carafate Susp) 1 gm QID@0600,1130,1700,2200 PO 09/09/24 11:30 09/09/24 21:14 Losartan Potassium (Cozaar Tablet) 25 mg DAILY PO 09/10/24 10:00 Acetaminophen (Tylenol Tablet) 650 mg Q6HP PRN PO MODERATE PAIN (4-6 PAIN SCALE) 09/09/24 15:00 Hold Acetaminophen/ Hydrocodone Bitart (Olin 5/325MG Tab) 2 tab Q6HPRN PRN PO MODERATE PAIN (4-6 PAIN SCALE) 09/09/24 19:45 09/09/24 19:50 DC Acetaminophen/ Hydrocodone Bitart (Olin 5/325MG Tab) 1 tab Q6HPRN PRN PO MODERATE PAIN (4-6 PAIN SCALE) 09/09/24 20:00 09/09/24 21:15 Review of Systems POSTOPERATIVE DIAGNOSES: 1. 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 Mild to moderate antral gastritis with pre-pyloric antral gastric erosions and tiny ulcers 3. There was a 2 cm sliding-type hiatal hernia with no significant erosive esophagitis 4. Otherwise normal examination up to the 2nd and 3rd part of the duodenum Vital Signs Vital Signs Date Time Temp Pulse Resp B/P (MAP) Pulse Ox O2 Delivery O2 Flow Rate FiO2 09/09/24 21:00 98.0 73 20 145/86 (105) 100 98.0 09/09/24 15:06 Room Air* 0 21 Physical Exam General Appearance: Alert, Oriented X3 Respiratory: Clear to auscultation, Normal air movement Cardiovascular: Regular rate, Normal S1 Abdominal: soft NT Neuro: Normal gait, Normal speech Labs/Diagnostic Data Labs Test 09/08/24 22:42 09/08/24 10:30 Range/Units White Blood Count 10.5 # 4.4-10.8 10^3/uL Red Blood Count 3.34 L 4.5-5.90 10^6/uL Hemoglobin 9.3 L 13.5-17.5 g/dL Hematocrit 28.4 L 41.0-53.0 % Mean Corpuscular Volume 85.0 80.0-100.0 fL Mean Corpuscular Hemoglobin 27.9 L 28.0-32.0 pg Mean Corpuscular Hemoglobin Concent 32.8 32.0-36.0 g/dL Red Cell Distribution Width 19.9 H 11.8-14.3 % Platelet Count 565 H 140-450 10^3/uL Mean Platelet Volume 7.2 6.9-10.8 fL Neutrophils (%) (Auto) 57.6 37.0-80.0 % Lymphocytes (%) (Auto) 28.2 10.0-50.0 % Monocytes (%) (Auto) 10.1 0.0-12.0 % Eosinophils (%) (Auto) 3.7 0.0-7.0 % Basophils (%) (Auto) 0.4 0.0-2.0 % Neutrophils # (Auto) 6.0 1.6-8.6 10 ^3/uL Lymphocytes # (Auto) 2.9 0.4-5.4 10 ^3/uL Monocytes # (Auto) 1.1 0-1.3 10 ^3/uL Eosinophils # (Auto) 0.4 0-0.8 10 ^3/uL Basophils # (Auto) 0 0-0.2 10 ^3/uL Nucleated Red Blood Cells 0.0 % Sodium Level 141 136-145 mmol/L Potassium Level 3.6 3.5-5.1 mmol/L Chloride Level 109 H 98-107 mmol/L Carbon Dioxide Level 24 20-31 mmol/L Anion Gap 8 5-15 Blood Urea Nitrogen 20 9-23 mg/dL Creatinine 0.73 0.700-1.30 mg/dL Glomerular Filtration Rate Calc 108 >90 mL/min BUN/Creatinine Ratio 27.4 H 10.0-20.0 Serum Glucose 122 H 74-106 mg/dL Calcium Level 9.7 8.7-10.4 mg/dL Total Bilirubin 0.2 0.2-1.0 mg/dL Aspartate Amino Transferase (AST) 9 L 13-40 U/L Alanine Aminotransferase (ALT) < 9 7-40 U/L Alkaline Phosphatase 59 46-116 U/L Total Protein 7.5 5.7-8.2 g/dL Albumin 4.9 H 3.2-4.8 g/dL Lipase 26 12-53 U/L Urine Color Yellow Yellow Urine Clarity Clear Clear Urine pH 6.0 5.0-9.0 Urine Specific [place] 1.044 H 1.001-1.035 Urine Protein 1+ H Negative Urine Ketones Negative Negative Urine Blood Negative Negative /uL Urine Nitrite Negative Negative Urine Bilirubin Negative Negative Urine Urobilinogen 4 H Negative mg/dL Urine Leukocyte Esterase Negative Negative /uL Urine RBC 1 0 - 3 /hpf Urine Microscopic WBC 2 0-3 /HPF Urine Squamous Epithelial Cells Few <5 /hpf Urine Bacteria None seen None Seen /hpf Urine Mucus Few None Seen Urine Glucose Normal Normal mg/dL CT SCAN ABD PELVIS IMPRESSION: 1. No bowel obstruction, fluid collection, or free air. Normal appendix. 2. Anemia suggested. Correlate with CBC. 3. Mild distal colonic diverticulosis. Problems(with codes): (1) Intractable abdominal pain (2) GERD (gastroesophageal reflux disease) (3) Chronic abdominal pain (4) Nausea and vomiting (5) Duodenal ulcer Plan/Recommendation Assessment plan 54-year-old male patient of Dr. Nava mei Recurrent admissions for abdominal pain History of polysubstance abuse Recent diagnosis of a complex pyloric duodenal ulcer with no active bleeding Upper GI x-ray showed no extravasation of contrast and CT shows no perforation or free air Plan Protonix 40 mg IV q.12 hours Carafate 1 g p.o. 4 times a day DC aspirin NSAIDs smoking alcohol and substance abuse Advance diet slowly as tolerated to a pureed diet and Continue supportive care Patient does not need a repeat endoscopy at this time Check pathology report from the recent endoscopy rule out H.pylori Plan discussed with: Patient KATHY LOPEZ MD Sep 09, 2024 22:24
[2024-09-10] VITALS (9 sets, daily range): BP systolic 116–152; BP diastolic 75–96; PULSE 76–95; RESP 15–20; TEMP 97.7–98.7; O2SAT 97–99
[2024-09-10] MEDS: PANTOPRAZOLE 40 MG/10 ML VIAL INJ IV SCH (09:54)
[2024-09-10] MEDS: LOSARTAN POTASSIUM 25 MG TAB PO SCH (09:55)
--- NOTE | 2024-09-10 18:27 | DVHPNRES ---
Progress Note Date Seen: Sep 10, 2024 Resident Creating Document: GISSEL [place] RESIDENT Medical Necessity Reason Pt with a Central, PICC or Fol: No Subjective Review of Systems Patient was seen and examined on the bedside. He is alert oriented x3. Complain of epigastric pain. With the patient and mentioned no intervention EGD needed that time this time and continue Protonix 40 mg IV b.i.d. and Carafate 1 g q.i.d.. Histopathology of gastric and duodenal tissue from last EGD in 0 09/25 demonstrated negative for H pylori. Possible DC tomorrow Objective vital signs Vital Sign Date Time Temp Pulse Resp B/P (MAP) Pulse Ox O2 Delivery O2 Flow Rate FiO2 09/10/24 17:00 98.6 95 15 116/76 (89) 98 98.6 09/10/24 08:00 Room Air* 0 21 Total Intake and Output 09/09/24 09/09/24 09/10/24 15:00 23:00 07:00 Intake Total 0 ml 0 ml Balance 0 ml 0 ml medications Current Medications Medications Dose Ordered Sig/Rick Route Start Time Stop Time Status Last Admin Dose Admin Ondansetron HCl 4 mg Q4HPRN PRN IV 09/08/24 22:30 09/08/24 22:51 4 MG Hydralazine HCl 10 mg Q6HP PRN IV 09/09/24 02:15 Sucralfate 1 gm QID@0600,1130,1700,2200 PO 09/09/24 11:30 09/10/24 18:05 1 GM Losartan Potassium 25 mg DAILY PO 09/10/24 10:00 09/10/24 09:55 25 MG Acetaminophen 650 mg Q6HP PRN PO 09/09/24 15:00 Hold Acetaminophen/ Hydrocodone Bitart 1 tab Q6HPRN PRN PO 09/09/24 20:00 09/10/24 18:05 1 TAB Pantoprazole Sodium 40 mg BID IV 09/10/24 10:00 09/10/24 09:54 40 MG Examination Physical examination: General Appearance: Alert, Oriented X3, Cooperative, No acute distress HEENT: Atraumatic, PERRLA, EOMI, Mucous membrane moist/pink Respiratory: Clear to auscultation, Normal air movement Cardiovascular: Regular rate, Normal S1, Normal S2, No murmurs, no chest wall tenderness Abdominal: Normal bowel sounds, Soft, mild tenderness, No hepatospenomegaly, No masses Extremities: No clubbing, No cyanosis, No edema, Normal pulses, No tenderness/swelling Skin: No rashes, No breakdown, No significant lesion Neuro: Normal gait, Normal speech, Strength at 5/5 X4 ext, Normal tone, Sensation intact, Cranial nerves 3-12 NL, Reflexes 2+ Psych/Mental Status: Mental status NL, Mood NL laboratory and microbiology Laboratory Tests 09/08/24 22:42 Test 09/08/24 22:42 Range/Units Serum Glucose 122 H 74-106 mg/dL Labs and/or images reviewed: Labs reviewed by me, Image(s) reviewed by me Problem List/Assessment/Plan Problem List/Assessment/Plan Assessment and plan: # Intractable epigastric pain and nausea likely due to PUD # History of large duodenal ulcer, s/p EGD # Chronic normocytic anemia likely due to microscopic blood loss from hiatal hernia - H&H 9.3.4 - CT abdomen pelvis demonstrated normal study with mild distal colonic diverticulosis - EGD on 09/01/24 demonstrated a 2- 2.5 cm Brando classification C acute on chronic duodenal bulb ulcer with pyloro duodenal channel deformity and a penetrating edge of the ulcer rule ;out fistula or internal communication Mild to moderate antral gastritis with pre-pyloric antral gastric erosions and tiny ulcers and there was a 2 cm sliding-type hiatal hernia with no significant erosive esophagitis. - IV Protonix 40 mg daily and Carafate suspension 1 g p.o. q.i.d. - GI evaluated the patient and recommended no inpatient intervention needed at this time # Hypertensive urgency # Hypertensive heart disease with chronic diastolic heart failure - IV hydralazine 10 mg q.6 p.r.n. and losartan 25 mg p.o. daily - Echo on 03/26 demonstrated EF 55% with grade 1 diastolic dysfunction. # History of anxiety / depression - Continue home meds. # Nicotine dependence - Counseled patient regarding quit smoking. # DVT prophylaxis - Hold due to the possibility of bleeding Goal of care discussed with the patient for more than 20 minutes full code Plan discussed with Dr. Reyes Plan discussed with: Patient, Other My Orders My Orders Orders - GISSEL [place] RESIDENT Procedure Category Date Status Time Hydrocodone-Acet PHA 09/09/24 In Process 5/325mg Tab ([place] 20:00 Dietary Evaluation Review Comments: 1. Clear Liquid diet; advance to Puree diet as tolerated per GI 2. Pt is at high-risk for malnutrition, do not go >5 days Clear Liquids only -> (Currently Day 2) 3. Will add Ensure Clear TID in the interim to optimize nutrition (provides 240 kcal, 8 gm protein per carton) 4. Monitor/treat GI sx Expected Outcomes/Goals: Diet advancement, adequate nutrition, improved oral intakes. Date of Service: Sep 10, 2024 Billing Provider: JESUS REYES MD Common Visit Codes: [id number] INP/OBS CARE(HIGH) GISSEL [place] RESIDENT Sep 10, 2024 18:27 JESUS REYES MD Sep 10, 2024 19:22
--- NOTE | 2024-09-10 20:03 | DVHDSRES ---
Discharge Summary Date of Admission Resident Creating Document: GISSEL B[place] RESIDENT Sep 08, 2024 at 22:25 Date of Discharge: Sep 11, 2024 Admitting Diagnosis Intractable abdominal pain and nausea likely due to gastritis Wounds: No wound was present. Labs/Diagnostic Data: Laboratory Results Test 09/08/24 22:42 09/08/24 10:30 White Blood Count 10.5 10^3/uL (4.4-10.8) Red Blood Count 3.34 10^6/uL (4.5-5.90) Hemoglobin 9.3 g/dL (13.5-17.5) Hematocrit 28.4 % (41.0-53.0) Mean Corpuscular Volume 85.0 fL (80.0-100.0) Mean Corpuscular Hemoglobin 27.9 pg (28.0-32.0) Mean Corpuscular Hemoglobin Concent 32.8 g/dL (32.0-36.0) Red Cell Distribution Width 19.9 % (11.8-14.3) Platelet Count 565 10^3/uL (140-450) Mean Platelet Volume 7.2 fL (6.9-10.8) Neutrophils (%) (Auto) 57.6 % (37.0-80.0) Lymphocytes (%) (Auto) 28.2 % (10.0-50.0) Monocytes (%) (Auto) 10.1 % (0.0-12.0) Eosinophils (%) (Auto) 3.7 % (0.0-7.0) Basophils (%) (Auto) 0.4 % (0.0-2.0) Neutrophils # (Auto) 6.0 10 ^3/uL (1.6-8.6) Lymphocytes # (Auto) 2.9 10 ^3/uL (0.4-5.4) Monocytes # (Auto) 1.1 10 ^3/uL (0-1.3) Eosinophils # (Auto) 0.4 10 ^3/uL (0-0.8) Basophils # (Auto) 0 10 ^3/uL (0-0.2) Nucleated Red Blood Cells 0.0 % Sodium Level 141 mmol/L (136-145) Potassium Level 3.6 mmol/L (3.5-5.1) Chloride Level 109 mmol/L (98-107) Carbon Dioxide Level 24 mmol/L (20-31) Anion Gap 8 (5-15) Blood Urea Nitrogen 20 mg/dL (9-23) Creatinine 0.73 mg/dL (0.700-1.30) Glomerular Filtration Rate Calc 108 mL/min (>90) BUN/Creatinine Ratio 27.4 (10.0-20.0) Serum Glucose 122 mg/dL (74-106) Calcium Level 9.7 mg/dL (8.7-10.4) Total Bilirubin 0.2 mg/dL (0.2-1.0) Aspartate Amino Transferase (AST) 9 U/L (13-40) Alanine Aminotransferase (ALT) < 9 U/L (7-40) Alkaline Phosphatase 59 U/L (46-116) Total Protein 7.5 g/dL (5.7-8.2) Albumin 4.9 g/dL (3.2-4.8) Lipase 26 U/L (12-53) Urine Color Yellow (Yellow) Urine Clarity Clear (Clear) Urine pH 6.0 (5.0-9.0) Urine Specific [place] 1.044 (1.001-1.035) Urine Protein 1+ (Negative) Urine Ketones Negative (Negative) Urine Blood Negative /uL (Negative) Urine Nitrite Negative (Negative) Urine Bilirubin Negative (Negative) Urine Urobilinogen 4 mg/dL (Negative) Urine Leukocyte Esterase Negative /uL (Negative) Urine RBC 1 /hpf (0 - 3) Urine Microscopic WBC 2 /HPF (0-3) Urine Squamous Epithelial Cells Few /hpf (<5) Urine Bacteria None seen /hpf (None Seen) Urine Mucus Few (None Seen) Urine Glucose Normal mg/dL (Normal) Other Laboratory Tests 09/08/24 22:42 Brief Hx & Hospital Course: This is a 54-year-old male patient with past medical history of asthma, anxiety, depression, hypertension, peptic ulcer disease, alcohol use, tobacco use disorder presented with complaints of severe abdominal pain, diffuse, radiating to back, no aggravating and relieving factors. Patient was previously admitted at [facility] where he was found to have a duodenal ulcer large. Was discharged with Protonix, was advised to discontinue alcohol and tobacco use disorder/ patient mentioned he had a cigar 2 hours before the pain started. He had associated nausea and vomiting and denied any complaints of melena, hematochezia. Hospital course: Initial CT abdomen- pelvis showed No bowel obstruction, fluid collection, or free air. Normal appendix and Mild distal colonic diverticulosis. GI evaluated the patient and mentioned no inpatient intervention needed this time and recommended protonix 40 mg bid and carafate 1 gm qid. EGD on 09/01/24 revealed a 2- 2.5 cm Brando classification C acute on chronic duodenal bulb ulcer with pyloro duodenal channel deformity and a penetrating edge of the ulcer rule ;out fistula or internal communication , Mild to moderate antral gastritis with pre-pyloric antral gastric erosions and tiny ulcers and There was a 2 cm sliding-type hiatal hernia with no significant erosive esophagitis .Histopathology of gastric and duodenal tissue demonstrated negative for H.pylori. Patient was treated with IV protonix 40 mg bid, carafate 1 gm qid and losartan 25 mg daily for control of blood pressure. Patient was counselled regarding quit smoking which also can aggravate his PUD. Patient is being discharged to home with protonix 40 mg bid and carafate 1 gm qid, and lLosartan 25 mg daily. Consults/Reason for consult GI was consulted Operations or Procedures CLINICAL HISTORY: sevee abd pain TECHNIQUE: CT of the abdomen and pelvis was performed without intravenous contrast. This exam was performed according to our departmental dose optimization program. Up-to-date CT equipment and radiation dose reduction techniques are utilized as appropriate. CTDI: 5.32 DLP: 271.93 WID: COMPARISON: CT CT AB PEL WO CON-NO ORAL OR IV on DOS: 09/05/24 FINDINGS: Lower Thorax: Lung bases are clear. Normal-sized heart. Hypodensity of the blood pool relative to the myocardium indicative of anemia. Liver and Biliary system: Unremarkable. Spleen: Unremarkable. Adrenal Glands and Kidneys: Unremarkable. Pancreas and Retroperitoneum: Unremarkable. Aorta and Major Vessels: Aortoiliac vessels are normal in caliber with mild calcified atherosclerotic plaque. Bowel, Mesentery and Peritoneal space: Normal caliber small and large bowel. There is mild distal colonic diverticulosis. Normal appendix. No fluid collection or free air. Pelvis: Dystrophic calcifications in the normal caliber prostate gland. Urinary bladder is mildly distended. There is no pelvic lymphadenopathy. Abdominal wall and Osseous Structures: No destructive osseous lesion. IMPRESSION: 1. No bowel obstruction, fluid collection, or free air. Normal appendix. Condition at Discharge: Guarded Final Diagnosis/Problems List # Intractable epigastric pain and nausea likely due to PUD # History of large duodenal ulcer, s/p EGD # Chronic normocytic anemia likely due to microscopic blood loss from hiatal hernia # Slow transit constipation # Hypertensive urgency # Hypertensive heart disease with chronic diastolic heart failure # History of anxiety / depression # Nicotine dependence Discharge Disposition: Home Discharge Statement: "Patient was advised to return to the ER or call 911 if any headaches, dizziness, shortness of breath, chest pain, abdominal pain, bleeding, fevers, or worsening of medical condition. Patient was counseled about treatment plan, medications, possible side effects, patientverbalized understanding. All questions were answered to the best of my ability. This discharge took greater then 30 minutes in planning, reviewing documentation, counseling the patient, and discussing with other team members." ASSESSMENT ASSESSMENT Assessment GISSEL B[place] RESIDENT Sep 10, 2024 20:03
[2024-09-10] MEDS ORDERED: POLYETHYLENE GLYCOL 17 GM PWDR PO PRN (20:30)
--- NOTE | 2024-09-10 21:14 | DVHPN2 ---
Progress Note - Dictate Date Seen: Sep 10, 2024 Medical Necessity Reason Pt with a Central, PICC or Fol: No Subjective No new complaints Patient tolerating a clear liquid diet No nausea vomiting or GI bleeding vital signs Vital Sign Date Time Temp Pulse Resp B/P (MAP) Pulse Ox O2 Delivery O2 Flow Rate FiO2 09/10/24 17:00 98.6 95 15 116/76 (89) 98 98.6 09/10/24 08:00 Room Air* 0 21 Total Intake and Output 09/09/24 09/09/24 09/10/24 15:00 23:00 07:00 Intake Total 0 ml 0 ml Balance 0 ml 0 ml medications Current Medications Medications Dose Ordered Sig/Rick Route Start Time Stop Time Status Last Admin Dose Admin Ondansetron HCl 4 mg Q4HPRN PRN IV 09/08/24 22:30 09/08/24 22:51 4 MG Hydralazine HCl 10 mg Q6HP PRN IV 09/09/24 02:15 Sucralfate 1 gm QID@0600,1130,1700,2200 PO 09/09/24 11:30 09/10/24 18:05 1 GM Losartan Potassium 25 mg DAILY PO 09/10/24 10:00 09/10/24 09:55 25 MG Acetaminophen 650 mg Q6HP PRN PO 09/09/24 15:00 Hold Acetaminophen/ Hydrocodone Bitart 1 tab Q6HPRN PRN PO 09/09/24 20:00 09/10/24 18:05 1 TAB Pantoprazole Sodium 40 mg BID IV 09/10/24 10:00 09/10/24 09:54 40 MG Polyethylene Glycol 17 gm DAILYPRN PRN PO 09/10/24 20:30 objective General Appearance: Alert, Oriented X3 Respiratory: Clear to auscultation, Normal air movement Cardiovascular: Regular rate, Normal S1 Abdominal: soft NT Neuro: Normal gait, Normal speech laboratory and microbiology Laboratory Tests 09/08/24 22:42 Test 09/08/24 22:42 Range/Units Serum Glucose 122 H 74-106 mg/dL Problems(with codes): (1) Duodenal ulcer (2) Nausea and vomiting (3) Chronic abdominal pain (4) GERD (gastroesophageal reflux disease) (5) Anxiety Prognosis Plan Protonix 40 mg IV q.12 hours Carafate 1 g p.o. 4 times a day DC aspirin NSAIDs smoking alcohol and substance abuse Advance diet slowly as tolerated to a pureed diet and Continue supportive care Patient does not need a repeat endoscopy at this time Check pathology report from the recent endoscopy rule out H.pylori Dietary Evaluation Review Comments: 1. Clear Liquid diet; advance to Puree diet as tolerated per GI 2. Pt is at high-risk for malnutrition, do not go >5 days Clear Liquids only -> (Currently Day 2) 3. Will add Ensure Clear TID in the interim to optimize nutrition (provides 240 kcal, 8 gm protein per carton) 4. Monitor/treat GI sx Expected Outcomes/Goals: Diet advancement, adequate nutrition, improved oral intakes. Plan discussed with: Patient KATHY LOPEZ MD Sep 10, 2024 21:14
[2024-09-11 01:00] VITALS: BP 129/84; PULSE 82; RESP 18; TEMP 97.8; O2SAT 98
[2024-09-11 05:00] VITALS: BP 135/90; PULSE 85; RESP 19; TEMP 97.6; O2SAT 98
[2024-09-11 06:29] LABS: Basophils # (auto) 0.1 10 ^3/uL (0-0.2); Eosinophils # (auto) 0.2 10 ^3/uL (0-0.8); Hemoglobin 9.1 g/dL (13.5-17.5); Monocytes # (auto) 0.7 10 ^3/uL (0-1.3); Neutrophils # (auto) 3.6 10 ^3/uL (1.6-8.6)
[2024-09-11 06:33] LABS: Basophils % (auto) 0.9 % (0.0-2.0); Eosinophils % (auto) 3.1 % (0.0-7.0); Hematocrit 28.3 % (41.0-53.0); Lymphocytes # (auto) 2.6 10 ^3/uL (0.4-5.4); Lymphocytes % (auto) 36.1 % (10.0-50.0); Mean Corpuscular Hemoglobin 27.4 pg (28.0-32.0); Mean Corpuscular Volume 85.7 fL (80.0-100.0); Neutrophils % (auto) 49.9 % (37.0-80.0); Platelet Count (auto) 472 10^3/uL (140-450); Red Cell Distribution Width 20.8 % (11.8-14.3); White Blood Cell 7.2 10^3/uL (4.4-10.8)
[2024-09-11 06:47] LABS: Potassium 3.8 mmol/L (3.5-5.1); Sodium 139 mmol/L (136-145)
[2024-09-11 06:48] LABS: Anion Gap 5 (5-15); Carbon Dioxide 26 mmol/L (20-31)
[2024-09-11 06:49] LABS: Calcium 9.3 mg/dL (8.7-10.4)
[2024-09-11 06:53] LABS: BUN/Creatinine Ratio 17.4 (10.0-20.0); Blood Urea Nitrogen 12 mg/dL (9-23); Glucose 88 mg/dL (74-106)
[2024-09-11 07:00] LABS: Chloride 108 mmol/L (98-107)
[2024-09-11 08:25] VITALS: PULSE 87; RESP 18; O2SAT 100
[2024-09-11 09:00] VITALS: BP 110/75; PULSE 87; RESP 18; TEMP 97.8; O2SAT 100
[2024-09-11] MEDS ORDERED: SUCR1SUS5 PO (11:44)
[2024-09-11] MEDS ORDERED: PANT40TA2 PO (11:44)
[2024-09-11 13:00] VITALS: BP 139/79; PULSE 86; RESP 20; TEMP 97.6; O2SAT 100
[2024-09-11 13:05] VITALS: BP 110/75; PULSE 87; RESP 18; TEMP 97.8; O2SAT 100
--- NOTE | 2024-09-11 16:25 | DVHDSRES ---
Discharge Summary Date of Admission Resident Creating Document: GISSEL [place] RESIDENT Sep 08, 2024 at 22:25 Date of Discharge: Sep 11, 2024 Admitting Diagnosis Intractable abdominal pain and nausea and vomiting Labs/Diagnostic Data: Laboratory Results Test 09/11/24 05:30 09/08/24 22:42 09/08/24 10:30 White Blood Count 7.2 10^3/uL (4.4-10.8) Red Blood Count 3.30 10^6/uL (4.5-5.90) Hemoglobin 9.1 g/dL (13.5-17.5) Hematocrit 28.3 % (41.0-53.0) Mean Corpuscular Volume 85.7 fL (80.0-100.0) Mean Corpuscular Hemoglobin 27.4 pg (28.0-32.0) Mean Corpuscular Hemoglobin Concent 32.0 g/dL (32.0-36.0) Red Cell Distribution Width 20.8 % (11.8-14.3) Platelet Count 472 10^3/uL (140-450) Mean Platelet Volume 7.1 fL (6.9-10.8) Neutrophils (%) (Auto) 49.9 % (37.0-80.0) Lymphocytes (%) (Auto) 36.1 % (10.0-50.0) Monocytes (%) (Auto) 10.0 % (0.0-12.0) Eosinophils (%) (Auto) 3.1 % (0.0-7.0) Basophils (%) (Auto) 0.9 % (0.0-2.0) Neutrophils # (Auto) 3.6 10 ^3/uL (1.6-8.6) Lymphocytes # (Auto) 2.6 10 ^3/uL (0.4-5.4) Monocytes # (Auto) 0.7 10 ^3/uL (0-1.3) Eosinophils # (Auto) 0.2 10 ^3/uL (0-0.8) Basophils # (Auto) 0.1 10 ^3/uL (0-0.2) Nucleated Red Blood Cells 0.0 % Sodium Level 139 mmol/L (136-145) Potassium Level 3.8 mmol/L (3.5-5.1) Chloride Level 108 mmol/L (98-107) Carbon Dioxide Level 26 mmol/L (20-31) Anion Gap 5 (5-15) Blood Urea Nitrogen 12 mg/dL (9-23) Creatinine 0.69 mg/dL (0.700-1.30) Glomerular Filtration Rate Calc 110 mL/min (>90) BUN/Creatinine Ratio 17.4 (10.0-20.0) Serum Glucose 88 mg/dL (74-106) Calcium Level 9.3 mg/dL (8.7-10.4) Total Bilirubin 0.2 mg/dL (0.2-1.0) Aspartate Amino Transferase (AST) 9 U/L (13-40) Alanine Aminotransferase (ALT) < 9 U/L (7-40) Alkaline Phosphatase 59 U/L (46-116) Total Protein 7.5 g/dL (5.7-8.2) Albumin 4.9 g/dL (3.2-4.8) Lipase 26 U/L (12-53) Urine Color Yellow (Yellow) Urine Clarity Clear (Clear) Urine pH 6.0 (5.0-9.0) Urine Specific [place] 1.044 (1.001-1.035) Urine Protein 1+ (Negative) Urine Ketones Negative (Negative) Urine Blood Negative /uL (Negative) Urine Nitrite Negative (Negative) Urine Bilirubin Negative (Negative) Urine Urobilinogen 4 mg/dL (Negative) Urine Leukocyte Esterase Negative /uL (Negative) Urine RBC 1 /hpf (0 - 3) Urine Microscopic WBC 2 /HPF (0-3) Urine Squamous Epithelial Cells Few /hpf (<5) Urine Bacteria None seen /hpf (None Seen) Urine Mucus Few (None Seen) Urine Glucose Normal mg/dL (Normal) Other Laboratory Tests 09/11/24 05:30 Brief Hx & Hospital Course: This is a 54-year-old male patient with past medical history of asthma, anxiety, depression, hypertension, peptic ulcer disease, alcohol use, tobacco use disorder presented with complaints of severe abdominal pain, diffuse, radiating to back, no aggravating and relieving factors. Patient was previously admitted at [facility] where he was found to have a duodenal ulcer large. Was discharged with Protonix, was advised to discontinue alcohol and tobacco use disorder/ patient mentioned he had a cigar 2 hours before the pain started. He had associated nausea and vomiting and denied any complaints of melena, hematochezia. Hospital course: Initial CT abdomen- pelvis showed No bowel obstruction, fluid collection, or free air. Normal appendix and Mild distal colonic diverticulosis. GI evaluated the patient and mentioned no inpatient intervention needed this time and recommended protonix 40 mg bid and carafate 1 gm qid. EGD on 09/01/24 revealed a 2- 2.5 cm Brando classification C acute on chronic duodenal bulb ulcer with pyloro duodenal channel deformity and a penetrating edge of the ulcer rule ;out fistula or internal communication , Mild to moderate antral gastritis with pre-pyloric antral gastric erosions and tiny ulcers and There was a 2 cm sliding-type hiatal hernia with no significant erosive esophagitis .Histopathology of gastric and duodenal tissue demonstrated negative for H.pylori. Patient was treated with IV protonix 40 mg bid, carafate 1 gm qid and losartan 25 mg daily for control of blood pressure. Patient was counselled regarding quit smoking which also can aggravate his PUD. Patient is being discharged to home with protonix 40 mg bid and carafate 1 gm qid, and lLosartan 25 mg daily. Consults/Reason for consult GI Condition at Discharge: Guarded Final Diagnosis/Problems List # Intractable epigastric pain and nausea likely due to PUD # History of large duodenal ulcer, s/p EGD # Chronic normocytic anemia likely due to microscopic blood loss from hiatal hernia # Slow transit constipation # Hypertensive urgency # Hypertensive heart disease with chronic diastolic heart failure # History of anxiety / depression # Nicotine dependence Discharge Disposition: Home Discharge Instruct/Medications Diet: Regular Activity: No Restrictions, As Tolerated Follow Up/Referral: -follow up with pcp in 1 week -dc clinic in 1 week Medications: see prescription Discharge Statement: "Patient was advised to return to the ER or call 911 if any headaches, dizziness, shortness of breath, chest pain, abdominal pain, bleeding, fevers, or worsening of medical condition. Patient was counseled about treatment plan, medications, possible side effects, patientverbalized understanding. All questions were answered to the best of my ability. This discharge took greater then 30 minutes in planning, reviewing documentation, counseling the patient, and discussing with other team members." ASSESSMENT ASSESSMENT Assessment Intractable epigastric pain and nausea likely due to PUD Date of Service: Sep 11, 2024 Billing Provider: JESUS BRASWELL MD Common Visit Codes: 97807-HII/OBS DISCH DAY >30min KONG GRESHAM Sep 11, 2024 16:25 JESUS BRASWELL MD Sep 11, 2024 19:53
--- NOTE | 2024-09-11 21:23 | DVHPN2 ---
Progress Note - Dictate Date Seen: Sep 11, 2024 (Time of visit 1:00 p.m.) Medical Necessity Reason Pt with a Central, PICC or Fol: No Subjective No new complaints Patient tolerating a pureed diet No nausea vomiting or GI bleeding vital signs Vital Sign Date Time Temp Pulse Resp B/P (MAP) Pulse Ox O2 Delivery O2 Flow Rate FiO2 09/11/24 13:05 97.8 87 18 100 09/11/24 13:00 139/79 (99) 09/11/24 08:25 Room Air* 0 21 Total Intake and Output 09/10/24 09/10/24 09/11/24 14:59 22:59 06:59 Intake Total 240 ml 945 ml Balance 240 ml 945 ml objective General Appearance: Alert, Oriented X3 Respiratory: Clear to auscultation, Normal air movement Cardiovascular: Regular rate, Normal S1 Abdominal: soft NT Neuro: Normal gait, Normal speech laboratory and microbiology Laboratory Tests 09/11/24 05:30 Test 09/11/24 05:30 Range/Units Serum Glucose 88 74-106 mg/dL Problems(with codes): (1) Anxiety (2) Chronic abdominal pain (3) Nausea and vomiting (4) Duodenal ulcer (5) Intractable abdominal pain (6) Intractable vomiting (7) GERD (gastroesophageal reflux disease) (8) Anemia Prognosis Plan Discharge planning is in progress Protonix 40 mg p.o. twice a day Carafate 1 g p.o. twice a day DC aspirin NSAIDs smoking alcohol Outpatient follow up with me in 4-6 weeks Dietary Evaluation Review Comments: 1. Clear Liquid diet; advance to Puree diet as tolerated per GI 2. Pt is at high-risk for malnutrition, do not go >5 days Clear Liquids only -> (Currently Day 2) 3. Will add Ensure Clear TID in the interim to optimize nutrition (provides 240 kcal, 8 gm protein per carton) 4. Monitor/treat GI sx Expected Outcomes/Goals: Diet advancement, adequate nutrition, improved oral intakes. Plan discussed with: Patient KATHY LOPEZ MD Sep 11, 2024 21:23
== END 2024-09-11 14:00 | disposition home or self-care (01) | DRG 241 ==
LOC: ER 10:20 → OVERFLOW 22:25 → EAST 09-09 14:45
PROVIDERS: ADMIT Internal Medicine; ATTEND Internal Medicine
DX: K27.9 Peptic ulcer, site unspecified, unspecified as acute or chronic, without hemorrhage or perforation (principal); I11.0 Hypertensive heart disease with heart failure; I50.32 Chronic diastolic (congestive) heart failure; D64.9 Anemia, unspecified; K57.30 Diverticulosis of large intestine without perforation or abscess without bleeding; F17.210 Nicotine dependence, cigarettes, uncomplicated; F32.A Depression, unspecified; J45.909 Unspecified asthma, uncomplicated; F41.9 Anxiety disorder, unspecified; K21.9 Gastro-esophageal reflux disease without esophagitis; G89.29 Other chronic pain; K59.01 Slow transit constipation; I16.0 Hypertensive urgency; Z82.49 Family history of ischemic heart disease and other diseases of the circulatory system; Z79.899 Other long term (current) drug therapy
CPT/HCPCS: 36415; 74176; 80048; 80053; 81001; 83690; 85025; 96361; 96374; 96375; G0378; J2405; J2470

== ENCOUNTER 2024-09-15 21:38 | Emergency (ER) | payer MEDICAID ==
[~2024-09-15] VITALS: Ht 175.3 cm; Wt 63.4 kg
[~2024-09-15 21:38] MED LIST changes: -AUG875T PO; -METR-344 PO; -SUCR1TAB31 OR
[2024-09-15 22:01] LABS: Urine Bacteria None Seen /hpf (None Seen)
[2024-09-15 22:14] LABS: Urine Blood Negative /uL (Negative); Urine Clarity Clear (Clear); Urine Color Light-Yellow (Yellow); Urine Protein, UAD Negative (Negative); Urine Specific Gravity 1.024 (1.001-1.035); Urine Squamous Epithelial Cell FEW /hpf (<5); Urine Urobilinogen 2 mg/dL (Negative); Urine WBC < 1 /HPF (0-3); Urine pH 6.5 (5.0-9.0)
--- NOTE | 2024-09-15 22:18 | ED.PDOC ---
GI ASSESSMENT HPI Comments 54y M who presents to the ED for chief complaint of abdominal pain This patient has been to the emergency department numerous times in the past with the same complaint. Patient has chronic abdominal pain. - pt states he has been having diffuse abdominal pain that started today with associated nausea, vomiting and diarrhea - pt states symptoms being the same he has had in the past - pt states his abdominal pain is sharp and pressure like in nature - pt has been to multiple times for similar complaints and discharged - pt denies any drug use - pt denies any urinary symptoms, fever, chills, or other associated symptoms at this time. Patient drove himself here today he states. Past medical history: -abdominal pain , secondary to duodenal ulcer -history of peptic ulcer disease -hypokalemia -alcoholism -tobacco abuse -normocytic anemia -MRSA of the nares past surgical history: denies Medications: denies HPI: Poor Historian. REVIEW OF SYSTEMS: CONSTITUTIONAL: Denies acute: fever, diaphoresis, chills, HEAD: Denies acute: headache, photophobia Eyes: Denies acute: Double vision, vision loss, eye pain, eye discharge. EARS: Denies acute: tinnitus, hearing loss, ear discharge, ear pain, THROAT: Denies acute: sore throat, swelling, difficulty swallowing , pain with swallowing, change in voice. NECK: Denies acute: neck pain, neck swelling, stiff neck. HEART: Denies acute : chest pain, palpitations, LUNGS: Denies acute: SOB, wheezing, cough, hemoptysis ABDOMEN: Denies acute: , diarrhea, melena , hematemesis, hematochezia SKIN: Denies acute: rash, redness, lesions, itchiness. EXTREMITIES: Denies acute: calf pain, numbness, tingling, weakness, denies pain in extremity. Denies acute: Low back pain. Neuro: Denies acute: focal neurological deficit, motor or sensory focal neurological deficit, tremors, seizure like activity, confusion, dizziness, change in mental status, loss of bowel or bladder function, cauda equina like symptoms. : Denies acute: dysuria, hematuria, flank pain, increase in urinary frequency. PSYCH: Denies acute: hallucination, suicidal ideation, homicidal ideation. PHYSICAL EXAM: General: ---[id number]-----acute distress, awake and alert. Head: normocephalic, atraumatic. Neck: supple, trachea is midline, no swelling. Throat: Normal phonation. Eyes:, no erythema, no purulent discharge, no proptosis, no icterus. Heart: regular rate, regular rhythm, no significant murmur appreciated. Lungs: no apparent respiratory distress, Able to speak in full sentences. No wheezing, no rhonchi, no crackles. No stridors Clear to auscultation bilaterally. Abdomen: Nonspecific generalized tender to palpation, non distended, soft, no guarding, no rebound, + bowel sounds. Neuro: Awake, Alert, oriented to name, self, situation, follows commands GCS=15. Speech is normal. Skin: no petechia, no purpura, no cyanosis, non-pale, not jaundice. Lower extremities: --no - Pitting edema no deformity, no focal swelling, no calf TTP. Makes eye contact. moves all four extremities. Face: no apparent facial droop. Ambulating in the ED independently. ED COURSE: Chief Complaint: Abdominal Pain Time Seen by MD: 10:10 Primary Care Provider: none Reviewed Notes: Nurses Notes, Medications, Allergies Allergies: Coded Allergies: NO KNOWN ALLERGIES (Unverified , 04/16/20) Home Meds Active Scripts Pantoprazole Sodium Sesquihydr (Protonix) 40 Mg Tab, 40 MG PO BID for 30 Days, #60 TAB Prov:JESUS BRASWELL MD 09/11/24 Sucralfate (Carafate) 1 Gm/10 Ml Shirin, 10 ML PO QID for 30 Days, #1200 ML Prov:JESUS BRASWELL MD 09/11/24 Hydrocodone-Acetaminophen (Hydrocodone Bitartrate/AC 5-325 mg) 1 Tab Tab, 1 TAB PO Q8HP PRN for 7 Days, #21 TAB Prov:EDYTA DUMONT NP 09/02/24 Discontinued Scripts Pantoprazole Sodium Sesquihydr (Protonix) 40 Mg Tab, 40 MG PO BID for 30 Days, #60 TAB 1 Refill Prov:EDYTA DUMONT NP 09/02/24 Sucralfate (CARAFATE) 1 Gm Tab, 1 GM OR ACHS for 60 Days, #240 TAB Prov:EDYTA DUMONT IRRIGATION FLUME LAYER 09/02/24 Metronidazole (Flagyl) 500 Mg Tab, 500 MG PO TID for 5 Days, #15 TAB Prov:ALLEN LOOMIS MD 08/28/24 Amoxicillin & Pot Clavulanate (AUGMENTIN TABLET) 875 Mg Tb, 875 MG PO BID for 5 Days, #10 TAB Prov:ALLEN LOOMIS MD 08/28/24 Information Source: Patient Mode of Arrival: Ambulatory Past Medical History PAST MEDICAL HISTORY: Anemia, Anxiety, Depression, HTN, PUD Surgical History: Denies all surgeries Family History Family History: Reviewed,noncontributory to illness, Family hx of Cancer Social History Smoker: Cigarettes Alcohol: Heavy Drugs: Denies Drug Use Lives In: Home Was a procedure done? Was a procedure done?: No GI differential Dx Differential Diagnosis: Other (DDX include but not limited to diverticulitis, colitis, gastroenteritis, acute abdomen, SBO, enteritis, constipation, volvulus, appendicitis, Gallbladder disease, choledocolithiasis, ascending cholangitis, pancreatitis, intraAbdominal mass/neoplasm, hepatitis, UTI, pylonephritis, kidney stone, aneurysm, dissection, Inflammatory bowel disease, gastroparesis, ischemic bowel.) X-Ray, Labs, Meds, VS Vital Signs Date Time Temp Pulse Resp B/P (MAP) Pulse Ox O2 Delivery O2 Flow Rate FiO2 09/16/24 00:40 98.3 85 19 146/96 (113) 100 98.3 09/15/24 21:52 97.6 103 18 156/96 (116) 99 97.6 Lab Test 09/15/24 22:13 09/15/24 21:50 Range/Units White Blood Count 10.3 # 4.4-10.8 10^3/uL Red Blood Count 3.59 L 4.5-5.90 10^6/uL Hemoglobin 9.8 L 13.5-17.5 g/dL Hematocrit 31.1 L 41.0-53.0 % Mean Corpuscular Volume 86.6 80.0-100.0 fL Mean Corpuscular Hemoglobin 27.3 L 28.0-32.0 pg Mean Corpuscular Hemoglobin Concent 31.5 L 32.0-36.0 g/dL Red Cell Distribution Width 21.5 H 11.8-14.3 % Platelet Count 455 H 140-450 10^3/uL Mean Platelet Volume 7.0 6.9-10.8 fL Neutrophils (%) (Auto) 61.7 37.0-80.0 % Lymphocytes (%) (Auto) 24.6 10.0-50.0 % Monocytes (%) (Auto) 8.0 0.0-12.0 % Eosinophils (%) (Auto) 4.4 0.0-7.0 % Basophils (%) (Auto) 1.3 0.0-2.0 % Neutrophils # (Auto) 6.4 1.6-8.6 10 ^3/uL Lymphocytes # (Auto) 2.5 0.4-5.4 10 ^3/uL Monocytes # (Auto) 0.8 0-1.3 10 ^3/uL Eosinophils # (Auto) 0.4 0-0.8 10 ^3/uL Basophils # (Auto) 0.1 0-0.2 10 ^3/uL Nucleated Red Blood Cells 0.1 % Sodium Level 142 136-145 mmol/L Potassium Level 3.6 3.5-5.1 mmol/L Chloride Level 110 H 98-107 mmol/L Carbon Dioxide Level 24 20-31 mmol/L Anion Gap 8 5-15 Blood Urea Nitrogen 16 9-23 mg/dL Creatinine 0.77 0.700-1.30 mg/dL Glomerular Filtration Rate Calc 106 >90 mL/min BUN/Creatinine Ratio 20.8 H 10.0-20.0 Serum Glucose 97 74-106 mg/dL Lactic Acid Level 0.9 0.4-2.0 mmol/L Calcium Level 9.9 8.7-10.4 mg/dL Total Bilirubin 0.2 0.2-1.0 mg/dL Aspartate Amino Transferase (AST) < 8 L 13-40 U/L Alanine Aminotransferase (ALT) < 9 7-40 U/L Alkaline Phosphatase 66 46-116 U/L Troponin I High Sensitivity 3 L </=54 ng/L B-Type Natriuretic Peptide 17.92 0-100 pg/mL Total Protein 7.1 5.7-8.2 g/dL Albumin 4.6 3.2-4.8 g/dL Lipase 37 12-53 U/L Plasma/Serum Blood Alcohol 3.4 <10 mg/dL Urine Color Light-yellow Yellow Urine Clarity Clear Clear Urine pH 6.5 5.0-9.0 Urine Specific [place] 1.024 1.001-1.035 Urine Protein Negative Negative Urine Ketones Negative Negative Urine Blood Negative Negative /uL Urine Nitrite Negative Negative Urine Bilirubin Negative Negative Urine Urobilinogen 2 H Negative mg/dL Urine Leukocyte Esterase Negative Negative /uL Urine RBC None seen 0 - 3 /hpf Urine Microscopic WBC < 1 0-3 /HPF Urine Squamous Epithelial Cells Few <5 /hpf Urine Bacteria None seen None Seen /hpf Urine Glucose Normal Normal mg/dL Urine Opiates Screen Neg NEGATIVE Urine Fentanyl Screen Neg NEGATIVE Urine Barbiturates Screen Neg NEGATIVE Urine Phencyclidine Screen Neg NEGATIVE Urine Amphetamines Screen Neg NEGATIVE Urine Benzodiazepines Screen Neg NEGATIVE Urine Cocaine Screen Neg NEGATIVE Urine Cannabinoids Screen Neg NEGATIVE Current Medications Medications (Trade) Dose Ordered Sig/Rick Route Start Time Stop Time Status Last Admin Acetaminophen/ Hydrocodone Bitart ([place] 5/325MG Tab) 1 tab ONCE ONCE PO 09/15/24 23:00 09/15/24 23:01 DC 09/16/24 00:55 [place] [address] Ph: [phone] DIAGNOSTIC IMAGING Diagnostic Imaging Report : [id number] Signed PATIENT: DALTON MANCINIT: [id number] UNIT: [id number] : 1970 LOC: ER ROOM / BED: / AGE / SEX: 54 / M ADM STATUS: REG ER SERVICE 40 ORDERING PHYSICIAN: CECI ROJAS DO PROCEDURE(s): ABPL - CT AB PEL WO CON-NO ORAL OR IV REASON: abd pain ORDER NUMBER(s): [id number], ACCESSION NUMBER(s): [id number] Exam: CT CT AB PEL WO CON-NO ORAL OR IV History: abd pain Comparison Study: None available at time of dictation. TECHNIQUE: Multidetector CT of the abdomen was performed from lung bases to pubic symphysis. Imaging was performed without IV contrast. Axial, coronal and sagittal multiplanar reformats were obtained from the axial data set by the technologist. Radiation Dose Information: CT Dose: CTDI volume is 5.07 mGy. Dose-length product is 254.65 mGy*cm FINDINGS: Evaluation of solid organs is limited due to lack of intravenous contrast use. Findings: Lung Bases: No acute or significant lung base finding. Normal heart size. No pleural or pericardial effusion. Liver: The liver is normal in size. No focal lesions. Gallbladder and Biliary Tree: Unremarkable Spleen: Unremarkable Pancreas: The pancreas is grossly normal in appearance. Adrenal Glands: Unremarkable Kidneys: Kidneys are grossly normal without calculi or hydronephrosis. Bladder: Grossly unremarkable for degree of distention. Bowel: The stomach is grossly normal in appearance. Small bowel and colon are normal in caliber and distribution. The appendix is not visualized; however, no secondary findings of acute appendicitis identified. Ascites: Absent Lymphadenopathy: No mesenteric, retroperitoneal or periportal lymphadenopathy. Abdominal Wall and Mesentery: Unremarkable. Vasculature: The visualized abdominal aorta is normal in size and caliber. Evaluation of abdominal and pelvic vessels is limited due to lack of intravenous contrast. Pelvic Organs: Unremarkable Musculoskeletal: No aggressive focal bony lesions, acute fractures or dislocation. Soft tissues: Unremarkable IMPRESSION: 1. No CT findings to suggest bowel obstruction. Stool throughout the colon. 2. No calcified gallstones 3. No nephrolithiasis or hydronephrosis. Radiation optimization: All CT scans at this facility use at least one of these dose optimization techniques: automated exposure control mA and/or kV adjustment per patient size (includes targeted exams where dose is matched to clinical indication) or iterative reconstruction. ATED BY: LEONID ZAMBRANO Jr., DO DICTATED DATE/TIME: 09/15/242229 SIGNED BY: LEONID ZAMBRANO Jr., SIGNED DATE/TIME: 09/15/242229 CC: Time of 1ST Reevaluation: 10:10 Reevaluation 1ST: Unchanged Patient Education/Counseling: Diagnosis, Treatment Family Education/Counseling: No Family Present Comments Patient presented with the above HPI.-abdominal pain-----workup was initiated. patient was found with the above mentioned diagnosis. the following medications were ordered: please refer to order lists of meds and tests obtained by myself Dr. Rojas. Patient ED course and VS have been stabilized. Patient has been reassessed in the ED and remained in a stable condition. Pertinent incidental findings were discussed with the patient and/or family. Patient/family voices understanding and is agreeable with plan. Patient has been observed in the ED adequate length of time to insure improvement/stability. Escalation of care considered: Consideration of escalation to observation or admission Patient was DISCHARGED home in a stable condition. All the reports of any imaging studies that were ordered by myself were reviewed by myself. Departure 1 Departure Time of Disposition: 23:39 Impression: Primary Impression: Chronic abdominal pain Additional Impression: Constipation Disposition: HOME / SELF CARE / HOMELESS Condition: Stable Additional Instructions: Additional instructions: You MUST follow-up with your primary care/family doctor in 1 to 2 days. If you are unable to see your primary care/family doctor, please return to our emergency room for re-assessment and re-evaluation in 1 to 2 days. Return to the emergency room here in our facility or to the nearest ER AME if your symptoms change or worsen. CONSULTATIONS: you MUST Follow-up for consultation as soon as possible with: gastroenterology in 1-2 days. Please call for appointment. You MUST call the consultants office yourself to make an appointment. You may need to arrange that through your insurance and/or your primary/family doctor. If you are unable to see the leasing consultant in 1 to 2 days, you must return to our emergency room (or any other ER of your choice) for re-assessment and re- evaluation. Adequate fluid hydration. Increase fiber intake. Liquid diet in next 72 hours. Discharged With: Self Critical Care Note Critical Care Time?: No I personally scribed for CECI ROJAS DO ([email or web address]) on 09/15/24 at 22:18. Elect ronically submitted by Danny Coulter ([email or web address]). CECI ROJAS DO Sep 15, 2024 22:18
[2024-09-15 22:23] LABS: Basophils # (auto) 0.1 10 ^3/uL (0-0.2); Basophils % (auto) 1.3 % (0.0-2.0); Eosinophils # (auto) 0.4 10 ^3/uL (0-0.8); Eosinophils % (auto) 4.4 % (0.0-7.0); Hematocrit 31.1 % (41.0-53.0); Hemoglobin 9.8 g/dL (13.5-17.5); Lymphocytes # (auto) 2.5 10 ^3/uL (0.4-5.4); Lymphocytes % (auto) 24.6 % (10.0-50.0); Mean Corpuscular Hemoglobin 27.3 pg (28.0-32.0); Mean Corpuscular Hgb Conc. 31.5 g/dL (32.0-36.0); Mean Corpuscular Volume 86.6 fL (80.0-100.0); Monocytes # (auto) 0.8 10 ^3/uL (0-1.3); Neutrophils # (auto) 6.4 10 ^3/uL (1.6-8.6); Neutrophils % (auto) 61.7 % (37.0-80.0); Nucleated Red Blood Cells % 0.1 %; Platelet Count (auto) 455 10^3/uL (140-450); Red Blood Cells 3.59 10^6/uL (4.5-5.90); White Blood Cell 10.3 10^3/uL (4.4-10.8)
[2024-09-15 22:24] LABS: Red Cell Distribution Width 21.5 % (11.8-14.3)
--- NOTE | 2024-09-15 22:33 | DVH ---
Exam: CT CT AB PEL WO CON-NO ORAL OR IV History: abd pain Comparison Study: None available at time of dictation. TECHNIQUE: Multidetector CT of the abdomen was performed from lung bases to pubic symphysis. Imaging was performed without IV contrast. Axial, coronal and sagittal multiplanar reformats were obtained fr om the axial data set by the technologist. Radiation Dose Information: CT Dose: CTDI volume is 5.07 mGy. Dose-length product is 254.65 mGy*cm FINDINGS: Evaluation of solid organs is limited due to lack of intravenous contrast use. Findings: Lung Bases: No acute or significant lung base finding. Normal heart size. No pleural or pericardial effusion. Liver: The liver is normal in size. No focal lesions. Gallbladder and Biliary Tree: Unremarkable Spleen: Unremarkable Pancreas: The pancreas is grossly normal in appearance. Adrenal Glands: Unremarkable Kidneys: Kidneys are grossly normal without calculi or hydronephrosis. Bladder: Grossly unremarkable for degree of distention. Bowel: The stomach is grossly normal in appearance. Small bowel and colon are normal in caliber and d istribution. The appendix is not visualized; however, no secondary findings of acute appendicitis id entified. Ascites: Absent Lymphadenopathy: No mesenteric, retroperitoneal or periportal lymphadenopathy. Abdominal Wall and Mesentery: Unremarkable. Vasculature: The visualized abdominal aorta is normal in size and caliber. Evaluation of abdominal a nd pelvic vessels is limited due to lack of intravenous contrast. Pelvic Organs: Unremarkable Musculoskeletal: No aggressive focal bony lesions, acute fractures or dislocation. Soft tissues: Unremarkable IMPRESSION: 1. No CT findings to suggest bowel obstruction. Stool throughout the colon. 2. No calcified gallstones 3. No nephrolithiasis or hydronephrosis. Radiation optimization: All CT scans at this facility use at least one of these dose optimization te chniques: automated exposure control mA and/or kV adjustment per patient size (includes targeted exa ms where dose is matched to clinical indication) or iterative reconstruction.
[2024-09-15 22:34] LABS: Amphetamine Screen, Urine Neg (NEGATIVE); Barbiturate Scree,Urine Neg (NEGATIVE); Benzodiazephine Screen, Urine Neg (NEGATIVE); Cannabinoid Screen, Urine Neg (NEGATIVE); Cocaine Screen, Urine Neg (NEGATIVE); Opiate Scree,Urine Neg (NEGATIVE); Phencyclidine Screen, Urine Neg (NEGATIVE)
[2024-09-15 22:42] LABS: Albumin 4.6 g/dL (3.2-4.8); Alkaline Phosphatase 66 U/L (46-116); Anion Gap 8 (5-15); BUN/Creatinine Ratio 20.8 (10.0-20.0); Blood Alcohol 3.4 mg/dL (<10); Blood Urea Nitrogen 16 mg/dL (9-23); Calcium 9.9 mg/dL (8.7-10.4); Carbon Dioxide 24 mmol/L (20-31); Glucose 97 mg/dL (74-106); Potassium 3.6 mmol/L (3.5-5.1); Sodium 142 mmol/L (136-145); Total Protein 7.1 g/dL (5.7-8.2)
[2024-09-15 22:47] LABS: Alanine Aminotransferase < 9 U/L (7-40); Aspartate Aminotransferase < 8 U/L (13-40); Bilirubin, Total 0.2 mg/dL (0.2-1.0); Chloride 110 mmol/L (98-107)
[2024-09-15 23:26] LABS: Lipase 37 U/L (12-53)
[2024-09-16] MEDS: SODIUM CHLORIDE 0.9% 1,000 ML IV ONE (00:38)
[2024-09-16] MEDS: ONDANSETRON HCL 4 MG/2 ML VIAL IV ONE (00:39)
[2024-09-16] MEDS: KETOROLAC TROMETH 30 MG/ML 1ML VIAL IV ONE (00:39)
[2024-09-16 00:40] VITALS: BP 146/96; PULSE 85; RESP 19; TEMP 98.3; O2SAT 100
[2024-09-16] MEDS: HYDROcodone-ACET 5/325MG TAB PO ONE (00:55)
[2024-09-16] MEDS ORDERED: ZOFR4T PO (05:34)
== END 2024-09-16 00:56 | disposition home or self-care (01) ==
LOC: ER 21:38
DX: K59.00 Constipation, unspecified (principal); G89.29 Other chronic pain; R10.84 Generalized abdominal pain; I10 Essential (primary) hypertension; F41.9 Anxiety disorder, unspecified; F32.9 Major depressive disorder, single episode, unspecified; F10.90 Alcohol use, unspecified, uncomplicated; F17.210 Nicotine dependence, cigarettes, uncomplicated; Z86.2 Personal history of diseases of the blood and blood-forming organs and certain disorders involving the immune mechanism; Z87.11 Personal history of peptic ulcer disease; Z79.899 Other long term (current) drug therapy; Y90.0 Blood alcohol level of less than 20 mg/100 ml
CPT/HCPCS: 36415; 74176; 80053; 80307; 80320; 81001; 83605; 83690; 83880; 84484; 85025

== ENCOUNTER 2024-09-16 04:04 | Emergency (ER) | payer MEDICAID ==
[~2024-09-16] VITALS: Ht 175.3 cm; Wt 64.0 kg
--- NOTE | 2024-09-16 04:40 | ED.PDOC ---
History of Present Illness HPI Comments 54-year-old male with PMHx Duodenal ulcer & Alcoholism, was prescribed Carafate and Protonix, was just discharged from the ER 3 hours ago, had a negative CT scan, labs showed anemia, patient states that he went home and started vomiting and was unable to take his prescribed medications, and came back to the ER. Reports dark colored stools, but no blood or black. Pain is generalized, 10/10. Patient is non-compliant with the Protonix and Carafate. Chief Complaint: Abdominal Pain Time Seen by MD: 04:38 Primary Care Provider: none Reviewed Notes: Medications, Allergies Allergies: Coded Allergies: NO KNOWN ALLERGIES (Unverified , 04/16/20) Home Meds Active Scripts Ondansetron Odt 4MG Tab (ZOFRAN PO) 4 Mg Tb, 4 MG PO TIDPRN PRN for 5 Days, #15 TAB ODT TAB-DISSOLVE IN MOUTH, THEN SWALLOW Prov:TOMMY HOWELL MD 09/16/24 Pantoprazole Sodium Sesquihydr (Protonix) 40 Mg Tab, 40 MG PO BID for 30 Days, #60 TAB Prov:JESUS BRASWELL MD 09/11/24 Sucralfate (Carafate) 1 Gm/10 Ml Shirin, 10 ML PO QID for 30 Days, #1200 ML Prov:JESUS BRASWELL MD 09/11/24 Hydrocodone-Acetaminophen (Hydrocodone Bitartrate/AC 5-325 mg) 1 Tab Tab, 1 TAB PO Q8HP PRN for 7 Days, #21 TAB Prov:EDYTA DUMONT NP 09/02/24 Discontinued Scripts Pantoprazole Sodium Sesquihydr (Protonix) 40 Mg Tab, 40 MG PO BID for 30 Days, #60 TAB 1 Refill Prov:EDYTA DUMONT NP 09/02/24 Sucralfate (CARAFATE) 1 Gm Tab, 1 GM OR ACHS for 60 Days, #240 TAB Prov:EDYTA DUMONT NP 09/02/24 Metronidazole (Flagyl) 500 Mg Tab, 500 MG PO TID for 5 Days, #15 TAB Prov:ALLEN LOOMIS MD 08/28/24 Amoxicillin & Pot Clavulanate (AUGMENTIN TABLET) 875 Mg Tb, 875 MG PO BID for 5 Days, #10 TAB Prov:ALLEN LOOMIS MD 08/28/24 Information Source: Patient Mode of Arrival: Ambulatory Severity: Moderate Timing: Weeks Duration: Since onset Prehospital treatment: None Vital Signs Vital Signs Date Time Temp Pulse Resp B/P (MAP) Pulse Ox O2 Delivery O2 Flow Rate FiO2 09/16/24 04:17 97.5 98 18 159/80 (106) 100 97.5 Physical Exam General: Awake, alert and oriented. No acute distress. Skin: Skin in warm, dry and intact without rashes or lesions. HEENT: The head is normocephalic and atraumatic. Conjunctivae are clear without exudates or hemorrhage. Sclera is non-icteric. Neck: Normal range of motion. No JVD. Cardiac: Regular rate Respiratory: No signs of respiratory distress. No Stridor. Abdominal: Abdomen is soft, generally tender-tender without distention. Bowel sounds are present and normoactive in all four quadrants. Extremities: Upper and lower extremities are atraumatic in appearance without deformity. Neurological: The patient is awake, alert and oriented to person, place, and time with normal speech. Speech is clear. There is no facial asymmetry. Psychiatric: Appropriate mood and affect. Good judgement and insight. Review of Systems: REVIEW OF SYSTEMS: No fever, no chills, or fatigue HEENT: No sore throat, no earache, no congestion, no neck pain. Cardiac: No chest pain. No palpitations. Lungs: No shortness of breath, no cough. GI: No nausea, no vomiting, no diarrhea, no constipation, no abdominal pain : No dysuria, frequency, or urgency. No hematuria. Musculoskeletal: No joint pain , no joint swelling, no extremity edema. Skin: No rash, no itching. Neuro: No headache, no dizziness, no weakness Past Medical History PAST MEDICAL HISTORY: Anemia, Anxiety, Depression, HTN, PUD Past Medical History (Other): Drug-Seeking Behavior Surgical History: Denies all surgeries Family History Family History: Reviewed,noncontributory to illness, Family hx of Cancer Social History Smoker: Cigarettes Alcohol: Heavy Drugs: Denies Drug Use Lives In: Home Was a procedure done? Was a procedure done?: No Differential Dx Considerations may include: Differential diagnoses considered include: Abdominal aortic aneurysm, IL, esophageal rupture, intestinal obstruction, mesenteric ischemia, perforated viscus or solid organ rupture, CHF with hepatomegaly, pneumonia, abscess, appendicitis, biliary disease, diverticulitis, gastritis, gastroenteritis, hepatitis, hernia, inflammatory bowel disease, pancreatitis, peptic ulcer disease, urinary tract infection, ureteral colic, constipation, GERD, irritable syndrome, abdominal wall pain, nonspecific abdominal pain, herpes zoster. X-Ray, Labs, Meds, VS Vital Signs Date Time Temp Pulse Resp B/P (MAP) Pulse Ox O2 Delivery O2 Flow Rate FiO2 09/16/24 04:17 97.5 98 18 159/80 (106) 100 97.5 PATIENT: DALTON MANCINICCT: [id number]: [id number] : 1970 LOC: ER ROOM / BED: / AGE / SEX: 54 / M ADM STATUS: REG ER SERVICE [id number] ORDERING PHYSICIAN: TOMMY HOWELL MD PROCEDURE(s): KUB - KUB ABDOMEN SINGLE VIEW REASON: Upright abdomen rule out free air ORDER NUMBER(s): [id number], ACCESSION NUMBER(s): [id number] ABDOMINAL RADIOGRAPH Indication: Upright abdomen rule out free air Technique: Single frontal view of the abdomen was obtained Comparison: None FINDINGS: Lines and tubes: None There is a nonobstructive bowel gas pattern. No supine radiographic evidence of pneumoperitoneum. Bony structures unremarkable. IMPRESSION: 1. Nonobstructive bowel gas pattern. ATED BY: LOUISE HALEY MD DICTATED DATE/TIME: 09/16/24522 SIGNED BY: LOUISE HALEY MD SIGNED DATE/TIME: 09/16/24522 Time of 1ST Reevaluation: 05:08 Reevaluation 1ST: Unchanged Patient Education/Counseling: Need For Follow Up Family Education/Counseling: No Family Present Departure 1 Departure Time of Disposition: 05:38 Impression: Primary Impression: Chronic abdominal pain Disposition: 01 HOME / SELF CARE / HOMELESS Condition: Stable e-Prescriptions Ondansetron Odt 4MG Tab (ZOFRAN PO) 4 Mg Tb 4 MG PO TIDPRN PRN for 5 Days, #15 TAB ODT TAB-DISSOLVE IN MOUTH, THEN SWALLOW Prov: TOMMY HOWELL MD 09/16/24 Comments 54-year-old male with chronic abdominal pain secondary to duodenal ulcer presents with abdominal pain and vomiting. Labs and imaging from ED visit within the past 24 hours reviewed. Abdominal exam shows no peritoneal signs. KUB negative for free air. Patient denying any rectal bleeding, black colored stools, blood in the vomit. Patient felt stable for discharge home. Patient advised to follow up with primary care provider promptly and return to the emergency department with any new, worsening or concerning symptoms. - I reviewed the following notes from the pt's past medical encounters: ED encounter 09/15/24 The following tests were ordered, and results were reviewed by me: (See diagnostic results section) Additional information was gathered from interviewing the following independent historians: (N/A) I reviewed and agreed with the following test results read by other providers: KENNEDY I discussed treatments and results with patient. Decision regarding hospitalization or escalation of hospital level of care: Risks and benefits of admission for further treatment of patient's condition was considered however due to patient's stable condition patient will be discharged to follow up closely or return to care for worsening of condition or inability to follow up. Critical Care Note Critical Care Time?: No Stability Stability form required: No Heart Score Heart Score: Heart Score Response (Comments) Value History N/A 0 EKG N/A 0 Age N/A 0 Risk Factors N/A 0 Troponin N/A 0 Total 0 I personally scribed for TOMMY HOWELL MD ([email or web address]) on 09/16/24 at 04:40. Electronically submitted by Ángel Arteaga ([email or web address]). I personally scribed for TOMMY HOWELL MD ([email or web address]) on 09/16/24 at 05:32. Electronically submitted by Ángel Arteaga ([email or web address]). TOMMY HOWELL MD Sep 16, 2024 04:40
--- NOTE | 2024-09-16 05:25 | DVH ---
ABDOMINAL RADIOGRAPH Indication: Upright abdomen rule out free air Technique: Single frontal view of the abdomen was obtained Comparison: None FINDINGS: Lines and tubes: None There is a nonobstructive bowel gas pattern. No supine radiographic evidence of pneumoperitoneum. Bon y structures unremarkable. IMPRESSION: 1. Nonobstructive bowel gas pattern.
[2024-09-16] MEDS ORDERED: ZOFR4T PO (05:34)
[2024-09-16 05:48] VITALS: BP 137/89; PULSE 98; RESP 17; TEMP 98.3; O2SAT 96
[2024-09-16] MEDS: ACETAMINOPHEN 500 MG TAB or CAP PO ONE (05:48)
[2024-09-16] MEDS: SUCRALFATE 1 GM/10 ML ORAL SUSP PO ONE (05:48)
[2024-09-16] MEDS: ONDANSETRON ODT 4 MG TAB PO ONE (05:48)
[2024-09-16] MEDS: LIDOCAINE VISCOUS 2% 15ML UD PO ONE (05:48)
== END 2024-09-16 05:56 | disposition home or self-care (01) ==
LOC: ER 04:04
DX: G89.29 Other chronic pain (principal); R10.9 Unspecified abdominal pain; R11.10 Vomiting, unspecified; F17.210 Nicotine dependence, cigarettes, uncomplicated; I10 Essential (primary) hypertension; F32.A Depression, unspecified; Z79.899 Other long term (current) drug therapy
CPT/HCPCS: 74018; 99284; Q0162

== ENCOUNTER 2024-09-16 15:40 | Emergency (ER) | payer MEDICAID ==
[~2024-09-16] VITALS: Ht 175.3 cm; Wt 59.8 kg
[~2024-09-16 15:40] MED LIST changes: +ZOFR4T PO
--- NOTE | 2024-09-16 16:12 | ECG ---
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
[2024-09-16 16:40] LABS: Basophils # (auto) 0.1 10 ^3/uL (0-0.2); Basophils % (auto) 0.8 % (0.0-2.0); Eosinophils # (auto) 0.2 10 ^3/uL (0-0.8); Lymphocytes # (auto) 1.6 10 ^3/uL (0.4-5.4); Mean Corpuscular Volume 85.7 fL (80.0-100.0); Monocytes # (auto) 0.8 10 ^3/uL (0-1.3); Neutrophils # (auto) 7.9 10 ^3/uL (1.6-8.6); Red Cell Distribution Width 22.1 % (11.8-14.3); White Blood Cell 10.6 10^3/uL (4.4-10.8)
[2024-09-16 16:43] LABS: Hemoglobin 10.2 g/dL (13.5-17.5); Lymphocytes % (auto) 15.2 % (10.0-50.0); Mean Corpuscular Hgb Conc. 32.7 g/dL (32.0-36.0); Monocytes % (auto) 7.9 % (0.0-12.0); Neutrophils % (auto) 74.1 % (37.0-80.0); Platelet Count (auto) 490 10^3/uL (140-450); Red Blood Cells 3.62 10^6/uL (4.5-5.90)
--- NOTE | 2024-09-16 16:44 | ED.PDOC ---
GI ASSESSMENT HPI Comments 54y M who presents to the ED for chief complaint of abdominal pain This patient has been to the emergency department numerous times in the past with the same complaint. Patient has chronic abdominal pain. - pt states he has been having diffuse abdominal pain that started today with associated nausea, vomiting and diarrhea. Most recent bowel movement was two days ago. - pt states symptoms being the same he has had in the past - pt states his abdominal pain is sharp and pressure like in nature - pt has been to [facility] multiple times for similar complaints and discharged - pt denies any drug use - pt denies any urinary symptoms, fever, chills, or other associated symptoms at this time. Patient drove himself here today he states. Past medical history: -abdominal pain , secondary to duodenal ulcer -history of peptic ulcer disease -hypokalemia -alcoholism -tobacco abuse -normocytic anemia -MRSA of the nares past surgical history: denies Medications: denies Vitals: Temp: 98.9F RR: 20 HR: 104 O2: 100% on RA BP: 171/106 and 170/97 HPI: Poor Historian. REVIEW OF SYSTEMS: CONSTITUTIONAL: Denies acute: fever, diaphoresis, chills, generalized weakness. HEAD: Denies acute: headache, photophobia Eyes: Denies acute: Double vision, vision loss, eye pain, eye discharge. EARS: Denies acute: tinnitus, hearing loss, ear discharge, ear pain, THROAT: Denies acute: sore throat, swelling, difficulty swallowing , pain with swallowing, change in voice. NECK: Denies acute: neck pain, neck swelling, stiff neck. HEART: Denies acute : chest pain, palpitations, LUNGS: Denies acute: SOB, wheezing, cough, hemoptysis ABDOMEN: Denies acute: diarrhea, melena , hematemesis, hematochezia SKIN: Denies acute: rash, redness, lesions, itchiness. EXTREMITIES: Denies acute: calf pain, numbness, tingling, weakness, denies pain in extremity. Denies acute: Low back pain. Neuro: Denies acute: focal neurological deficit, motor or sensory focal neurological deficit, tremors, seizure like activity, confusion, dizziness, change in mental status, loss of bowel or bladder function, cauda equina like symptoms. : Denies acute: dysuria, hematuria, flank pain, increase in urinary frequency. PSYCH: Denies acute: hallucination, suicidal ideation, homicidal ideation. PHYSICAL EXAM: General: ---[id number]-----acute distress, awake and alert. Head: normocephalic, atraumatic. Neck: supple, trachea is midline, no swelling. Throat: Normal phonation. Eyes:, no erythema, no purulent discharge, no proptosis, no icterus. Heart: regular rate, regular rhythm, no significant murmur appreciated. Lungs: no apparent respiratory distress, Able to speak in full sentences. No wheezing, no rhonchi, no crackles. No stridors Clear to auscultation bilaterally. Abdomen: Generalized tender to palpation, non distended, soft, no guarding, no rebound, + bowel sounds. Neuro: Awake, Alert, oriented to name, self, situation, follows commands GCS=15. Speech is normal. Skin: no petechia, no purpura, no cyanosis, non-pale, not jaundice. Lower extremities: --no - Pitting edema no deformity, no focal swelling, no calf TTP. Makes eye contact. moves all four extremities. Face: no apparent facial droop. Ambulating in the ED independently. ED COURSE: Chief Complaint: Abdominal Pain Time Seen by MD: 16:10 Primary Care Provider: none Reviewed Notes: Nurses Notes, Medications, Allergies Allergies: Coded Allergies: NO KNOWN ALLERGIES (Unverified , 04/16/20) Home Meds Active Scripts Ondansetron Odt 4MG Tab (ZOFRAN PO) 4 Mg Tb, 4 MG PO TIDPRN PRN for 5 Days, #15 TAB ODT TAB-DISSOLVE IN MOUTH, THEN SWALLOW Prov:TOMMY HOWELL MD 09/16/24 Pantoprazole Sodium Sesquihydr (Protonix) 40 Mg Tab, 40 MG PO BID for 30 Days, #60 TAB Prov:JESUS BRASWELL MD 09/11/24 Sucralfate (Carafate) 1 Gm/10 Ml Shirin, 10 ML PO QID for 30 Days, #1200 ML Prov:JESUS BRASWELL MD 09/11/24 Hydrocodone-Acetaminophen (Hydrocodone Bitartrate/AC 5-325 mg) 1 Tab Tab, 1 TAB PO Q8HP PRN for 7 Days, #21 TAB Prov:EDYTA DUMONT NP 09/02/24 Discontinued Scripts Pantoprazole Sodium Sesquihydr (Protonix) 40 Mg Tab, 40 MG PO BID for 30 Days, #60 TAB 1 Refill Prov:EDYTA DUMONT NP 09/02/24 Sucralfate (CARAFATE) 1 Gm Tab, 1 GM OR ACHS for 60 Days, #240 TAB Prov:EDYTA DUMONT NP 09/02/24 Metronidazole (Flagyl) 500 Mg Tab, 500 MG PO TID for 5 Days, #15 TAB Prov:ALLEN LOOMIS MD 08/28/24 Amoxicillin & Pot Clavulanate (AUGMENTIN TABLET) 875 Mg Tb, 875 MG PO BID for 5 Days, #10 TAB Prov:ALLEN LOOMIS MD 08/28/24 Information Source: Patient Mode of Arrival: Ambulatory Timing: Days Duration: Since onset Prehospital treatment: None Quality: Other Vomitus: Watery Stool: Loose Severity: Moderate Recent: None Recent Hx of: None Pain Location: Diffuse Modifying Factors: Nothing Associated sign and symptoms: Nausea, Vomiting, Diarrhea, Abdominal Pain, Other Past Medical History PAST MEDICAL HISTORY: Anemia, Anxiety, Depression, HTN, PUD Surgical History: Denies all surgeries Family History Family History: Reviewed,noncontributory to illness, Family hx of Cancer Social History Smoker: Cigarettes Alcohol: Heavy Drugs: Denies Drug Use Lives In: Home Was a procedure done? Was a procedure done?: No GI differential Dx Differential Diagnosis: Other (DDX include but not limited to diverticulitis, colitis, gastroenteritis, acute abdomen, SBO, enteritis, constipation, volvulus, appendicitis, Gallbladder disease, choledocolithiasis, ascending cholangitis, pancreatitis, intraAbdominal mass/neoplasm, hepatitis, UTI, pylonephritis, kidney stone, aneurysm, dissection, Inflammatory bowel disease, gastroparesis, ischemic bowel.) X-Ray, Labs, Meds, VS Vital Signs Date Time Temp Pulse Resp B/P (MAP) Pulse Ox O2 Delivery O2 Flow Rate FiO2 09/16/24 18:32 98.4 100 20 134/81 (98) 97 98.4 4/16/25 16:00 98.9 104 20 170/96 (120) 100 98.9 Lab Test 09/16/24 16:25 Range/Units White Blood Count 10.6 4.4-10.8 10^3/uL Red Blood Count 3.62 L 4.5-5.90 10^6/uL Hemoglobin 10.2 L 13.5-17.5 g/dL Hematocrit 31.0 L 41.0-53.0 % Mean Corpuscular Volume 85.7 80.0-100.0 fL Mean Corpuscular Hemoglobin 28.0 28.0-32.0 pg Mean Corpuscular Hemoglobin Concent 32.7 32.0-36.0 g/dL Red Cell Distribution Width 22.1 H 11.8-14.3 % Platelet Count 490 H 140-450 10^3/uL Mean Platelet Volume 7.4 6.9-10.8 fL Neutrophils (%) (Auto) 74.1 37.0-80.0 % Lymphocytes (%) (Auto) 15.2 10.0-50.0 % Monocytes (%) (Auto) 7.9 0.0-12.0 % Eosinophils (%) (Auto) 2.0 0.0-7.0 % Basophils (%) (Auto) 0.8 0.0-2.0 % Neutrophils # (Auto) 7.9 1.6-8.6 10 ^3/uL Lymphocytes # (Auto) 1.6 0.4-5.4 10 ^3/uL Monocytes # (Auto) 0.8 0-1.3 10 ^3/uL Eosinophils # (Auto) 0.2 0-0.8 10 ^3/uL Basophils # (Auto) 0.1 0-0.2 10 ^3/uL Nucleated Red Blood Cells 0.0 % Sodium Level 139 136-145 mmol/L Potassium Level 3.2 L 3.5-5.1 mmol/L Chloride Level 107 98-107 mmol/L Carbon Dioxide Level 24 20-31 mmol/L Anion Gap 8 5-15 Blood Urea Nitrogen 12 9-23 mg/dL Creatinine 0.80 0.700-1.30 mg/dL Glomerular Filtration Rate Calc 105 >90 mL/min BUN/Creatinine Ratio 15.0 10.0-20.0 Serum Glucose 121 H 74-106 mg/dL Lactic Acid Level 2.0 0.4-2.0 mmol/L Calcium Level 9.6 8.7-10.4 mg/dL Total Bilirubin 0.4 0.2-1.0 mg/dL Aspartate Amino Transferase (AST) 12 L 13-40 U/L Alanine Aminotransferase (ALT) < 9 7-40 U/L Alkaline Phosphatase 70 46-116 U/L Troponin I High Sensitivity < 3 L </=54 ng/L Total Protein 7.3 5.7-8.2 g/dL Albumin 4.8 3.2-4.8 g/dL Lipase 32 12-53 U/L Current Medications Medications (Trade) Dose Ordered Sig/Rick Route Start Time Stop Time Status Last Admin Sodium Chloride 1,000 ml @ 1,000 mls/hr Q1H ONCE IV 09/16/24 15:45 09/16/24 16:44 DC 09/16/24 19:59 Potassium Chloride (Klor-Con Tablet) 40 meq ONCE ONCE PO 09/16/24 17:15 09/16/24 17:16 DC 09/16/24 20:03 [place] [address] Ph: [phone] DIAGNOSTIC IMAGING Diagnostic Imaging Report : [id number] Signed PATIENT: DALTON MANCINI ACCT: [id number] UNIT: [id number] : 1970 LOC: ER ROOM / BED: / AGE / SEX: 54 / M ADM STATUS: REG ER SERVICE 1552 ORDERING PHYSICIAN: CECI ROJAS DO PROCEDURE(s): ABPL - CT AB PEL WO CON-NO ORAL OR IV REASON: ABD PAIN ORDER NUMBER(s): [id number], ACCESSION NUMBER(s): [id number] Exam: CT CT AB PEL WO CON-NO ORAL OR IV History: ABD PAIN Comparison Study: None available at time of dictation. TECHNIQUE: Multidetector CT of the abdomen was performed from lung bases to pubic symphysis. Imaging was performed without IV contrast. Axial, coronal and sagittal multiplanar reformats were obtained from the axial data set by the technologist. Radiation Dose Information: CT Dose: CTDI volume is 6.54 mGy. Dose-length product is 339.56 mGy*cm FINDINGS: Evaluation of solid organs is limited due to lack of intravenous contrast use. Findings: Lung Bases: No acute or significant lung base finding. Normal heart size. No pleural or pericardial effusion. Liver: The liver is normal in size. No focal lesions. Gallbladder and Biliary Tree: Unremarkable Spleen: Unremarkable Pancreas: The pancreas is grossly normal in appearance. Adrenal Glands: Unremarkable Kidneys: Kidneys are grossly normal without calculi or hydronephrosis. Bladder: Grossly unremarkable for degree of distention. Bowel: The stomach is grossly normal in appearance. Small bowel and colon are normal in caliber and distribution. The appendix is not visualized; however, no secondary findings of acute appendicitis identified. Ascites: Absent Lymphadenopathy: No mesenteric, retroperitoneal or periportal lymphadenopathy. Abdominal Wall and Mesentery: Unremarkable. Vasculature: The visualized abdominal aorta is normal in size and caliber. Evaluation of abdominal and pelvic vessels is limited due to lack of intravenous contrast. Pelvic Organs: Unremarkable Musculoskeletal: No aggressive focal bony lesions, acute fractures or dislocation. Soft tissues: Unremarkable IMPRESSION: 1. No findings suggest bowel obstruction. Stool noted throughout the colon 2. No calcified gallstones 3. No nephrolithiasis or hydronephrosis 4. No ureteral or bladder calculi Radiation optimization: All CT scans at this facility use at least one of these dose optimization techniques: automated exposure control mA and/or kV adjustment per patient size (includes targeted exams where dose is matched to clinical indication) or iterative reconstruction. ATED BY: LEONID ZAMBRANO Jr., DO DICTATED DATE/TIME: 09/16/241744 SIGNED BY: LEONID ZAMBRANO Jr., DO SIGNED DATE/TIME: 09/16/241744 CC: [place] [address] Ph: [phone] DIAGNOSTIC IMAGING Diagnostic Imaging Report : [id number] Signed PATIENT: DALTON MANCINI ACCT: [id number] UNIT: [id number] : 1970 LOC: ER ROOM / BED: / AGE / SEX: 54 / M ADM STATUS: REG ER SERVICE [id number] ORDERING PHYSICIAN: CECI ROJAS DO PROCEDURE(s): HWOCT - HEAD WITHOUT CONTRAST REASON: VOMITING ORDER NUMBER(s): [id number], ACCESSION NUMBER(s): [id number] EXAM: CT HEAD WITHOUT CONTRAST INDICATION: VOMITING TECHNIQUE: CT of the head without intravenous contrast. Radiation Dose : 1. Head: CT Dose: CTDI volume is 54 mGy. Dose-length product is and 52 mGy*cm The dose indicators for CT are the volume Computed Tomography (CT) Dose Index (CTDIvol) and the Dose Length Product (DLP), and are measured in units of mGy and mGy-cm, respectively. These indicators are not patient dose, but values generated from the CT scanner acquisition factors. The report includes radiation exposure data for exposures received during this examination. COMPARISON: CT HEAD WITHOUT CONTRAST on DOS: 03/12/24, CT HEAD WITHOUT CONTRAST on DOS: 01/20/24, HEAD WITHOUT CONTRAST on DOS: 04/01/21 FINDINGS: There is no evidence of acute intracranial hemorrhage, extra-axial collection, mass effect, midline shift, herniation or hydrocephalus. The ventricles, sulci and cisterns are age appropriate. The martinez-white differentiation is intact. Angel cisterna magna versus posterior fossa arachnoid cyst. The visualized paranasal sinuses and mastoid air cells are clear. The surrounding soft tissues and osseous structures are unremarkable. IMPRESSION: No acute intracranial abnormality. Radiation optimization: All CT scans at this facility use at least one of these dose optimization techniques: automated exposure control mA and/or kV adjustme nt per patient size (includes targeted exams where dose is matched to clinical indication) or iterative reconstruction. ATED BY: TONNY KEYES MD DICTATED DATE/TIME: 09/16/241724 SIGNED BY: TONNY KEYES MD SIGNED DATE/TIME: 09/16/241724 CC: Time of 1ST Reevaluation: 16:40 Reevaluation 1ST: Unchanged Patient Education/Counseling: Diagnosis, Treatment Family Education/Counseling: No Family Present Comments Patient presented with the above HPI.--abdominal pain----workup was initiated. patient was found with the above mentioned diagnosis. the following medications were ordered: please refer to order lists of meds and tests obtained by myself Dr. Rojas. Patient ED course and VS have been stabilized. Patient has been reassessed in the ED and remained in a stable condition. Pertinent incidental findings were discussed with the patient and/or family. Patient/family voices understanding and is agreeable with plan. Patient has been observed in the ED adequate length of time to insure improvement/stability. Escalation of care considered: Consideration of escalation to observation or admission Patient and that up with a CT scan of the head that was not ordered by myself. The CT scan of the head was performed accidentally by CT scan staff. The tech approached me and told me that they had to put an order under my name since it was already performed. I never ordered the test myself. Patient was DISCHARGED home in a stable condition. All the reports of any imaging studies that were ordered by myself were reviewed by myself. Departure 1 Departure Time of Disposition: 17:34 Impression: Primary Impression: Chronic abdominal pain Additional Impressions: Constipation Anemia Nausea and vomiting Disposition: 01 HOME / SELF CARE / HOMELESS Condition: Stable Additional Instructions: Additional instructions: You MUST follow-up with your primary care/family doctor in 1 to 2 days. If you are unable to see your primary care/family doctor, please return to our emergency room for re-assessment and re-evaluation in 1 to 2 days. Return to the emergency room here in our facility or to the nearest ER AME if your symptoms change or worsen. CONSULTATIONS: you MUST Follow-up for consultation as soon as possible with: --gastroenterology in 1-2 days. Please call for appointment You MUST call the consultants office yourself to make an appointment. You may need to arrange that through your insurance and/or your primary/family doctor. If you are unable to see the trousseau consultant in 1 to 2 days, you must return to our emergency room (or any other ER of your choice) for re-assessment and re- evaluation. Adequate fluid hydration. Increase fiber intake. Liquid diet in next 72 hours. Below is a copy of your radiological report for follow up: [address] [address] Ph: [phone] DIAGNOSTIC IMAGING Diagnostic Imaging Report : [id number] Signed PATIENT: DALTON MANCINI ACCT: [id number] UNIT: [id number] : 1970 LOC: ER ROOM / BED: / AGE / SEX: 54 / M ADM STATUS: REG ER SERVICE 1552 ORDERING PHYSICIAN: CECI ROJAS DO PROCEDURE(s): ABPL - CT AB PEL WO CON-NO ORAL OR IV REASON: ABD PAIN ORDER NUMBER(s): [id number], ACCESSION NUMBER(s): [id number] Exam: CT CT AB PEL WO CON-NO ORAL OR IV History: ABD PAIN Comparison Study: None available at time of dictation. TECHNIQUE: Multidetector CT of the abdomen was performed from lung bases to pubic symphysis. Imaging was performed without IV contrast. Axial, coronal and sagittal multiplanar reformats were obtained from the axial data set by the technologist. Radiation Dose Information: CT Dose: CTDI volume is 6.54 mGy. Dose-length product is 339.56 mGy*cm FINDINGS: Evaluation of solid organs is limited due to lack of intravenous contrast use. Findings: Lung Bases: No acute or significant lung base finding. Normal heart size. No pleural or pericardial effusion. Liver: The liver is normal in size. No focal lesions. Gallbladder and Biliary Tree: Unremarkable Spleen: Unremarkable Pancreas: The pancreas is grossly normal in appearance. Adrenal Glands: Unremarkable Kidneys: Kidneys are grossly normal without calculi or hydronephrosis. Bladder: Grossly unremarkable for degree of distention. Bowel: The stomach is grossly normal in appearance. Small bowel and colon are normal in caliber and distribution. The appendix is not visualized; however, no secondary findings of acute appendicitis identified. Ascites: Absent Lymphadenopathy: No mesenteric, retroperitoneal or periportal lymphadenopathy. Abdominal Wall and Mesentery: Unremarkable. Vasculature: The visualized abdominal aorta is normal in size and caliber. Evaluation of abdominal and pelvic vessels is limited due to lack of intravenous contrast. Pelvic Organs: Unremarkable Musculoskeletal: No aggressive focal bony lesions, acute fractures or dislocation. Soft tissues: Unremarkable IMPRESSION: 1. No findings suggest bowel obstruction. Stool noted throughout the colon 2. No calcified gallstones 3. No nephrolithiasis or hydronephrosis 4. No ureteral or bladder calculi Radiation optimization: All CT scans at this facility use at least one of these dose optimization techniques: automated exposure control mA and/or kV adjustment per patient size (includes targeted exams where dose is matched to clinical indication) or iterative reconstruction. ATED BY: LEONID ZAMBRANO Jr., DO DICTATED DATE/TIME: 09/16/241744 SIGNED BY: LEONID ZAMBRANO Jr., SIGNED DATE/TIME: 09/16/241744 CC: [place] [address] Ph: [phone] DIAGNOSTIC IMAGING Diagnostic Imaging Report : [id number] Signed PATIENT: DALTON MANCINI ACCT: [id number] UNIT: [id number] : 1970 LOC: ER ROOM / BED: / AGE / SEX: 54 / M ADM STATUS: REG ER SERVICE 45 ORDERING PHYSICIAN: CECI ROJAS DO PROCEDURE(s): HWOCT - HEAD WITHOUT CONTRAST REASON: VOMITING ORDER NUMBER(s): [id number], ACCESSION NUMBER(s): [id number] EXAM: CT HEAD WITHOUT CONTRAST INDICATION: VOMITING TECHNIQUE: CT of the head without intravenous contrast. Radiation Dose : 1. Head: CT Dose: CTDI volume is 54 mGy. Dose-length product is and 52 mGy*cm The dose indicators for CT are the volume Computed Tomography (CT) Dose Index (CTDIvol) and the Dose Length Product (DLP), and are measured in units of mGy and mGy-cm, respectively. These indicators are not patient dose, but values generated from the CT scanner acquisition factors. The report includes radiation exposure data for exposures received during this examination. COMPARISON: CT HEAD WITHOUT CONTRAST on DOS: 03/12/24, CT HEAD WITHOUT CONTRAST on DOS: 01/20/24, HEAD WITHOUT CONTRAST on DOS: 04/01/21 FINDINGS: There is no evidence of acute intracranial hemorrhage, extra-axial collection, mass effect, midline shift, herniation or hydrocephalus. The ventricles, sulci and cisterns are age appropriate. The martinez-white differentiation is intact. Angel cisterna magna versus posterior fossa arachnoid cyst. The visualized paranasal sinuses and mastoid air cells are clear. The surrounding soft tissues and osseous structures are unremarkable. IMPRESSION: No acute intracranial abnormality. Radiation optimization: All CT scans at this facility use at least one of these dose optimization techniques: automated exposure control mA and/or kV adjustment per patient size (includes targeted exams where dose is matched to clinical indication) or iterative reconstruction. ATED BY: TONNY KEYES MD DICTATED DATE/TIME: 09/16/241724 SIGNED BY: TONNY KEYES MD SIGNED DATE/TIME: 09/16/241724 CC: Discharged With: Self Critical Care Note Critical Care Time?: No Heart Score Heart Score: Heart Score Response (Comments) Value History N/A 0 EKG N/A 0 Age N/A 0 Risk Factors N/A 0 Troponin N/A 0 Total 0 I personally scribed for CECI ROJAS DO ([email or web address]) on 09/16/24 at 16:44. Electronically submitted by [place] ([email or web address]). I personally scribed for CECI ROJAS DO ([email or web address]) on 09/16/24 at 17:56. Electronically submitted by [place] ([email or web address]). I personally scribed for CECI ROJAS DO ([email or web address]) on 09/16/24 at 19:48. Electronically submitted by Erica Machado ([email or web address]). CECI ROJAS DO Sep 16, 2024 16:44
[2024-09-16 16:58] LABS: Alkaline Phosphatase 70 U/L (46-116); Anion Gap 8 (5-15); Blood Urea Nitrogen 12 mg/dL (9-23); Calcium 9.6 mg/dL (8.7-10.4); Carbon Dioxide 24 mmol/L (20-31); Lipase 32 U/L (12-53); Sodium 139 mmol/L (136-145); Total Protein 7.3 g/dL (5.7-8.2)
[2024-09-16 16:59] LABS: Albumin 4.8 g/dL (3.2-4.8); Bilirubin, Total 0.4 mg/dL (0.2-1.0)
[2024-09-16 17:02] LABS: Alanine Aminotransferase < 9 U/L (7-40); Aspartate Aminotransferase 12 U/L (13-40); Chloride 107 mmol/L (98-107); Glucose 121 mg/dL (74-106); Potassium 3.2 mmol/L (3.5-5.1)
--- NOTE | 2024-09-16 17:27 | DVH ---
EXAM: CT HEAD WITHOUT CONTRAST INDICATION: VOMITING TECHNIQUE: CT of the head without intravenous contrast. Radiation Dose : 1. Head: CT Dose: CTDI volume is 54 mGy. Dose-length product is and 52 mGy*cm The dose indicators for CT are the volume Computed Tomography (CT) Dose Index (CTDIvol) and the Dose Length Product (DLP), and are measured in units of mGy and mGy-cm, respectively. These indicators are not patient dose, but values generated from the CT scanner acquisition factors. The report includes radiation exposure data for exposures received during this examination. COMPARISON: CT HEAD WITHOUT CONTRAST on DOS: 03/12/24, CT HEAD WITHOUT CONTRAST on DOS: 01/20/24, HEAD WITHOUT CONTRAST on DOS: 04/01/21 FINDINGS: There is no evidence of acute intracranial hemorrhage, extra-axial collection, mass effect, midline s hift, herniation or hydrocephalus. The ventricles, sulci and cisterns are age appropriate. The martinez-white differentiation is intact. Angel cisterna magna versus posterior fossa arachnoid cyst. The visualized paranasal sinuses and mastoid air cells are clear. The surrounding soft tissues and osseous structures are unremarkable. IMPRESSION: No acute intracranial abnormality. Radiation optimization: All CT scans at this facility use at least one of these dose optimization zaki hniques: automated exposure control mA and/or kV adjustment per patient size (includes targeted exam s where dose is matched to clinical indication) or iterative reconstruction.
--- NOTE | 2024-09-16 17:47 | DVH ---
Exam: CT CT AB PEL WO CON-NO ORAL OR IV History: ABD PAIN Comparison Study: None available at time of dictation. TECHNIQUE: Multidetector CT of the abdomen was performed from lung bases to pubic symphysis. Imaging was performed without IV contrast. Axial, coronal and sagittal multiplanar reformats were obtained fr om the axial data set by the technologist. Radiation Dose Information: CT Dose: CTDI volume is 6.54 mGy. Dose-length product is 339.56 mGy*cm FINDINGS: Evaluation of solid organs is limited due to lack of intravenous contrast use. Findings: Lung Bases: No acute or significant lung base finding. Normal heart size. No pleural or pericardial effusion. Liver: The liver is normal in size. No focal lesions. Gallbladder and Biliary Tree: Unremarkable Spleen: Unremarkable Pancreas: The pancreas is grossly normal in appearance. Adrenal Glands: Unremarkable Kidneys: Kidneys are grossly normal without calculi or hydronephrosis. Bladder: Grossly unremarkable for degree of distention. Bowel: The stomach is grossly normal in appearance. Small bowel and colon are normal in caliber and d istribution. The appendix is not visualized; however, no secondary findings of acute appendicitis id entified. Ascites: Absent Lymphadenopathy: No mesenteric, retroperitoneal or periportal lymphadenopathy. Abdominal Wall and Mesentery: Unremarkable. Vasculature: The visualized abdominal aorta is normal in size and caliber. Evaluation of abdominal a nd pelvic vessels is limited due to lack of intravenous contrast. Pelvic Organs: Unremarkable Musculoskeletal: No aggressive focal bony lesions, acute fractures or dislocation. Soft tissues: Unremarkable IMPRESSION: 1. No findings suggest bowel obstruction. Stool noted throughout the colon 2. No calcified gallstones 3. No nephrolithiasis or hydronephrosis 4. No ureteral or bladder calculi Radiation optimization: All CT scans at this facility use at least one of these dose optimization zaki hniques: automated exposure control mA and/or kV adjustment per patient size (includes targeted exam s where dose is matched to clinical indication) or iterative reconstruction.
[2024-09-16 18:32] VITALS: BP 134/81; PULSE 100; RESP 20; TEMP 98.4; O2SAT 97
[2024-09-16] MEDS: SODIUM CHLORIDE 0.9% 1,000 ML IV ONE (19:59)
[2024-09-16] MEDS: POTASSIUM CHL 20 Meq TABLET PO ONE (20:03)
[2024-09-16] MEDS: ONDANSETRON HCL 4 MG/2 ML VIAL IV ONE (20:11)
--- NOTE | 2024-09-16 20:52 | DVH ---
CHEST RADIOGRAPH Indication: abd pain Technique: Single frontal view of the chest was obtained Comparison: XY CHEST XRAY 1 VIEW on DOS: 08/09/24, XY CHEST XRAY 1 VIEW on DOS: 07/24/24, XY CHEST CAMILLA BLE on DOS: 06/04/24, XY CHEST PORTABLE on DOS: 03/12/24, XY CHEST XRAY 1 VIEW on DOS: 01/20/24 FINDINGS: The cardiac silhouette is unremarkable. The lungs demonstrate no pulmonary airspace consolidation. Th e pulmonary vasculature is unremarkable. There is no pleural effusion.. There is no pneumothorax. IMPRESSION: 1. No pulmonary airspace consolidation.<< >>
[2024-09-21] MEDS ORDERED: HYDR-4902 PO (11:09)
== END 2024-09-16 23:13 | disposition home or self-care (01) ==
LOC: ER 15:40
DX: G89.29 Other chronic pain (principal); R10.84 Generalized abdominal pain; K59.00 Constipation, unspecified; D64.9 Anemia, unspecified; R11.2 Nausea with vomiting, unspecified; I10 Essential (primary) hypertension; F41.9 Anxiety disorder, unspecified; F32.A Depression, unspecified; F17.210 Nicotine dependence, cigarettes, uncomplicated; R51.9 Headache, unspecified; Z79.899 Other long term (current) drug therapy; Z87.11 Personal history of peptic ulcer disease
CPT/HCPCS: 36415; 70450; 71045; 74176; 80053; 83605; 83690; 84484; 85025; 93005; 96360; 99285; J2405; J7030

== ENCOUNTER 2024-09-17 01:14 | Emergency (ER) | payer MEDICAID ==
[~2024-09-17] VITALS: Ht 175.3 cm; Wt 60.1 kg
--- NOTE | 2024-09-17 02:03 | ED.PDOC ---
GI ASSESSMENT HPI Comments 54 year old male presents to the ED with a chief complaint of chronic abdominal pain. Patient has been to this ED numerous times, last ED visit was 09/16/24, and was discharged. Patient states symptoms had improved when he was discharged, began experiencing abdominal pain, nausea, vomiting, anxiety and returned to ED. Has appointment with PCP in October. Last bowel movement was 2 days ago, has been experiencing constipation intermittently for the past 6 weeks. PMHx anxiety, depression, HTN, PUD, anemia. Denies chest pain, shortness of breath, diarrhea, dizziness, headache, fevers, chills. No other symptoms or modifying factors present at this time. Chief Complaint: Abdominal Pain Time Seen by MD: 01:50 Primary Care Provider: VLADISLAV Reviewed Notes: Medications, Allergies Allergies: Coded Allergies: NO KNOWN ALLERGIES (Unverified , 04/16/20) Home Meds Active Scripts Ondansetron Odt 4MG Tab (ZOFRAN PO) 4 Mg Tb, 4 MG PO TIDPRN PRN for 5 Days, #15 TAB ODT TAB-DISSOLVE IN MOUTH, THEN SWALLOW Prov:TOMMY HOWELL MD 09/16/24 Pantoprazole Sodium Sesquihydr (Protonix) 40 Mg Tab, 40 MG PO BID for 30 Days, #60 TAB Prov:JESUS BRASWELL MD 09/11/24 Sucralfate (Carafate) 1 Gm/10 Ml Shirin, 10 ML PO QID for 30 Days, #1200 ML Prov:JESUS BRASWELL MD 09/11/24 Hydrocodone-Acetaminophen (Hydrocodone Bitartrate/AC 5-325 mg) 1 Tab Tab, 1 TAB PO Q8HP PRN for 7 Days, #21 TAB Prov:EDYTA DUMONT [employer]DC[employer] TEACHER 09/02/24 Discontinued Scripts Pantoprazole Sodium Sesquihydr (Protonix) 40 Mg Tab, 40 MG PO BID for 30 Days, #60 TAB 1 Refill Prov:EDYTA DUMONT [employer]DC[employer] TE[employer]ER 09/02/24 Sucralfate (CARAFATE) 1 Gm Tab, 1 GM OR ACHS for 60 Days, #240 TAB Prov:EDYTA DUMONT [employer]DC[employer] TEACHER 09/02/24 Metronidazole (Flagyl) 500 Mg Tab, 500 MG PO TID for 5 Days, #15 TAB Prov:ALLEN LOOMIS MD 08/28/24 Amoxicillin & Pot Clavulanate (AUGMENTIN TABLET) 875 Mg Tb, 875 MG PO BID for 5 Days, #10 TAB Prov:ALLEN LOOMIS MD 08/28/24 Information Source: Patient Mode of Arrival: Ambulatory Timing: Hours Duration: Since onset Prehospital treatment: None Quality: Aching, Cramping Severity: Moderate Recent: None Recent Hx of: None Pain Location: Diffuse Modifying Factors: Nothing Associated sign and symptoms: Nausea, Vomiting, Constipation, Abdominal Pain Vital Signs Vital Signs Date Time Temp Pulse Resp B/P (MAP) Pulse Ox O2 Delivery O2 Flow Rate FiO2 09/17/24 04:16 98.2 101 17 130/82 (98) 98 98.2 Physical Exam General: Awake, alert and oriented. No acute distress. Skin: Skin in warm, dry and intact. Appropriate color for ethnicity. HEENT: The head is normocephalic and atraumatic. Conjunctivae are clear without exudates or hemorrhage. Sclera is non-icteric. EOM are intact. No signs of nystagmus. Eyelids are normal in appearance without swelling or lesions. Oral mucosa is pink and moist Neck: The neck is supple with normal range of motion. No JVD. Cardiac: Heart rate and rhythm are normal. No murmurs, gallops, or rubs are auscultated. Respiratory: No signs of respiratory distress. Lung sounds are clear in all lobes bilaterally without rales, rhonchi, or wheezes. Abdominal: Abdomen is soft, non-tender without distention. Bowel sounds are present and normoactive in all four quadrants. Extremities: Upper and lower extremities are atraumatic in appearance without deformity or edema. Neurological: The patient is awake, alert and oriented to person, place, and time with normal speech. Speech is clear. There is no facial asymmetry. Psychiatric: Appropriate mood and affect. Good judgement and insight. Review of Systems: REVIEW OF SYSTEMS: No fever, no chills, or fatigue HEENT: No sore throat, no earache, no congestion, no neck pain. Cardiac: No chest pain. No palpitations. Lungs: No shortness of breath, no cough. GI: No nausea, no vomiting, no diarrhea, no constipation, no abdominal pain : No dysuria, frequency, or urgency. No hematuria. Musculoskeletal: No joint pain , no joint swelling, no extremity edema. Skin: No rash, no itching. Neuro: No headache, no dizziness, no weakness Past Medical History PAST MEDICAL HISTORY: Anemia, Anxiety, Depression, HTN, PUD Surgical History: Denies all surgeries Family History Family History: Reviewed,noncontributory to illness, Family hx of Cancer Social History Smoker: Cigarettes Alcohol: Heavy Drugs: Denies Drug Use Lives In: Home Was a procedure done? Was a procedure done?: No GI differential Dx Differential Diagnosis: Bowel Obstruction (Bowel perforation, peptic ulcer disease,), Gastritis/PUD, Gastroenteritis, Hepatitis, Ischemic Bowel, Other (Bowel perforation, other) X-Ray, Labs, Meds, VS Vital Signs Date Time Temp Pulse Resp B/P (MAP) Pulse Ox O2 Delivery O2 Flow Rate FiO2 09/17/24 04:16 98.2 101 17 130/82 (98) 98 98.2 09/17/24 01:30 97.9 110 18 164/80 (108) 98 97.9 Lab Test 09/17/24 02:00 Range/Units Urine Color Light-orange Yellow Urine Clarity Ex.turbid Clear Urine pH 7.0 5.0-9.0 Urine Specific [place] 1.028 1.001-1.035 Urine Protein Trace H Negative Urine Ketones Trace Negative Urine Blood Negative Negative /uL Urine Nitrite Negative Negative Urine Bilirubin Negative Negative Urine Urobilinogen 3 H Negative mg/dL Urine Leukocyte Esterase Negative Negative /uL Urine RBC 1 0 - 3 /hpf Urine Microscopic WBC 1 0-3 /HPF Urine Squamous Epithelial Cells Few <5 /hpf Urine Amorphous Crystals Few None Seen /hpf Urine Bacteria Few H None Seen /hpf Urine Mucus Few None Seen Urine Yeast (Budding) Occasional None Seen /hpf Urine Glucose Normal Normal mg/dL Current Medications Medications (Trade) Dose Ordered Sig/Rick Route Start Time Stop Time Status Last Admin Metoclopramide HCl (Reglan Tablet) 5 mg ONCE ONCE PO 09/17/24 02:00 09/17/24 02:01 DC 09/17/24 04:01 Acetaminophen (Tylenol Tablet) 1,000 mg ONCE ONCE PO 09/17/24 02:00 09/17/24 02:01 DC 09/17/24 04:02 Diphenhydramine HCl (Benadryl Injection) 25 mg ONCE ONCE IM 09/17/24 02:30 09/17/24 02:31 DC 09/17/24 04:01 Time of 1ST Reevaluation: 05:53 Reevaluation 1ST: Improved Patient Education/Counseling: Need For Follow Up Family Education/Counseling: No Family Present Departure 1 Departure Time of Disposition: 05:52 Impression: Primary Impression: Chronic abdominal pain Additional Impression: Constipation Disposition: 01 HOME / SELF CARE / HOMELESS Condition: Stable Additional Instructions: ED DISCHARGE INSTRUCTIONS Instructions: Please read all instructions provided in this packet carefully. Although you have been discharged from the Emergency Department, this does not mean that you have a "clean bill of health". No definitive diagnosis for your symptoms has been made today. It is possible that you are in the process of developing a serious illness. This is why you must return to the ED without fail if any new or worsening symptoms (especially if your symptoms include chest pain, trouble breathing, diarrhea, abdominal pain, fever, headache, confusion, trouble seeing, or trouble walking) It is also very important that you see a primary care doctor within the next 1-4 days. Return to the emergency department if you continued to have worsening abdominal pain over the next 12 hours. Return to the emergency department if you have not had a bowel movement within 12 hours of completing laxative drink (GoLYTELY) If you are unable to get an appointment, return to the ED for re-evaluation. Comments 54-year-old male with a history of chronic abdominal pain presented with abdominal pain. No peritoneal signs on abdominal exam. No evidence of acute abdomen at this time. patient is well appearing. Labs and imaging results from recent ED visit less then 24 hours ago reviewed. Patient is afebrile. Patient is not hypotensive. Low suspicion for acute hepatobiliary disease (including acute cholecystitis, acute pancreatitis, PUD (including perforation), acute infectious process (pneumonia, hepatitis, pyelonephritis), acute appendicitis, vascular catastrophe, bowel obstructions, viscous perforation. Presentation not consistent with other acute, emergent causes of abdominal pain at this time. Patient reports improvement with pain after pain medication in the emergency department. We will administer stool softener (GoLYTELY) for constipation which may be contributing to patient's abdominal pain. Patient well-appearing, nontoxic. Advised prompt follow-up with PCP, return to the ED with any new, worsening or concerning symptoms. Critical Care Note Critical Care Time?: No Stability Stability form required: No I personally scribed for TOMMY HOWELL MD ([email or web address]) on 09/17/24 at 02:03. Electronically submitted by Lamar Woodson ([email or web address]). TOMMY HOWELL MD Sep 17, 2024 02:03
[2024-09-17] MEDS: diphenhdrAMINE HCL 50 MG/1 ML VL IM ONE (04:01)
[2024-09-17] MEDS: METOCLOPRAMIDE HCL 10 MG TAB PO ONE (04:01)
[2024-09-17] MEDS: ACETAMINOPHEN 325 MG TAB PO ONE (04:02)
[2024-09-17] MEDS: MAGNESIUM CITRATE SOLUTION 300 ML BTL PO ONE (04:05)
[2024-09-17 04:13] LABS: Urine Amorphous Crystal FEW /hpf (None Seen); Urine Bacteria FEW /hpf (None Seen); Urine Blood Negative /uL (Negative); Urine Budding Yeast OCCASIONAL /hpf (None Seen); Urine Clarity Ex.Turbid (Clear); Urine Color Light-Orange (Yellow); Urine Mucus FEW (None Seen); Urine Protein, UAD TRACE (Negative); Urine Specific Gravity 1.028 (1.001-1.035); Urine Squamous Epithelial Cell FEW /hpf (<5); Urine Urobilinogen 3 mg/dL (Negative); Urine WBC 1 /HPF (0-3)
[2024-09-17 04:16] VITALS: BP 130/82; TEMP 98.2
[2024-09-17] MEDS: GOLYTELY 4L KIT PO ONE (06:34)
[2024-09-17 06:39] VITALS: PULSE 95; RESP 14; O2SAT 98
== END 2024-09-17 06:42 | disposition home or self-care (01) ==
LOC: ER 01:14
DX: K59.00 Constipation, unspecified (principal); G89.29 Other chronic pain; R10.9 Unspecified abdominal pain; F17.210 Nicotine dependence, cigarettes, uncomplicated; I10 Essential (primary) hypertension; F41.9 Anxiety disorder, unspecified; F32.A Depression, unspecified; Z87.11 Personal history of peptic ulcer disease; Z79.899 Other long term (current) drug therapy
CPT/HCPCS: 81001; 96372; 99284; J1200; J8597

== ENCOUNTER 2024-09-18 01:05 | Inpatient (IN) | payer MEDICAID ==
[~2024-09-18] VITALS: Ht 175.3 cm; Wt 58.0 kg
--- NOTE | 2024-09-18 02:25 | ED.PDOC ---
GI ASSESSMENT HPI Comments 54-year-old male came to ER for abdominal pain. Patient is seen here multiple times for abdominal pain. Has history of chronic abdominal pain. Was seen by GI doctor, endoscopy done revealing ulcers. Was prescribed sucralfate and Protonix. Patient is still complaining of diffuse abdominal pain, nausea, vomi ting and constipation. Chief Complaint: Abdominal Pain Time Seen by MD: 02:25 Primary Care Provider: VLADISLAV Ramey Notes: Nurses Notes Allergies: Coded Allergies: NO KNOWN ALLERGIES (Unverified , 04/16/20) Home Meds Active Scripts Ondansetron Odt 4MG Tab (ZOFRAN PO) 4 Mg Tb, 4 MG PO TIDPRN PRN for 5 Days, #15 TAB ODT TAB-DISSOLVE IN MOUTH, THEN SWALLOW Prov:TOMMY HOWELL MD 09/16/24 Pantoprazole Sodium Sesquihydr (Protonix) 40 Mg Tab, 40 MG PO BID for 30 Days, #60 TAB Prov:JEUSS BRASWELL MD 09/11/24 Sucralfate (Carafate) 1 Gm/10 Ml Shirin, 10 ML PO QID for 30 Days, #1200 ML Prov:JESUS BRASWELL MD 09/11/24 Hydrocodone-Acetaminophen (Hydrocodone Bitartrate/AC 5-325 mg) 1 Tab Tab, 1 TAB PO Q8HP PRN for 7 Days, #21 TAB Prov:EDYTA DUMONT NP 09/02/24 Discontinued Scripts Pantoprazole Sodium Sesquihydr (Protonix) 40 Mg Tab, 40 MG PO BID for 30 Days, #60 TAB 1 Refill Prov:EDYTA DUMONT [employer]CUSSION INSTRUMENT REPAIRER 09/02/24 Sucralfate (CARAFATE) 1 Gm Tab, 1 GM OR ACHS for 60 Days, #240 TAB Prov:EDYTA DUMONT [employer]CUSSION INSTRUMENT REPAIRER 09/02/24 Metronidazole (Flagyl) 500 Mg Tab, 500 MG PO TID for 5 Days, #15 TAB Prov:ALLEN LOOMIS MD 08/28/24 Amoxicillin & Pot Clavulanate (AUGMENTIN TABLET) 875 Mg Tb, 875 MG PO BID for 5 Days, #10 TAB Prov:ALLEN LOOMIS MD 08/28/24 Information Source: Patient Mode of Arrival: Ambulatory Timing: Months Duration: Intermittent Prehospital treatment: None Quality: Aching Vomitus: Watery Stool: Impaction Severity: Moderate Recent Hx of: Ulcer Disease Pain Location: Diffuse Modifying Factors: Nothing Associated sign and symptoms: Nausea, Vomiting, Constipation, Abdominal Pain Past Medical History PAST MEDICAL HISTORY: Anemia, Anxiety, Depression, HTN, PUD Past Medical History (Other): Chronic abdominal pain Surgical History: Denies all surgeries Family History Family History: Reviewed,noncontributory to illness, Family hx of Cancer Social History Smoker: Cigarettes Alcohol: Sober Drugs: Denies Drug Use Lives In: Home Constitutional: denies: chills, diaphoresis, fatigue, fever, malaise, sweats, weakness, others EENTM: denies: blurred vision, double vision, ear bleeding, ear discharge, ear drainage, ear pain, ear ringing, eye pain, eye redness, hearing loss, mouth pain, mouth swelling, nasal discharge, nose bleeding, nose congestion, nose pain, photophobia, tearing, throat pain, throat swelling, voice changes, others Respiratory: denies: cough, hemoptysis, orthopnea, SOB at rest, shortness of breath, SOB with excertion, stridor, wheezing, others Cardiovascular: denies: chest pain, dizzy spells, diaphoresis, Dyspnea on exertion, edema, irregular heart beat, left arm pain, lightheadedness, palpitations, PND, syncope, others Gastrointestinal: reports: abdominal pain, constipated, nausea, vomiting; denies: abdomen distended, blood streaked bowels, diarrhea, dysphagia, difficulty swallowing, hematemesis, melena, poor appetite, poor fluid intake, rectal bleeding, rectal pain, others Genitourinary: denies: burning, dysuria, flank pain, frequency, hematuria, incontinence, penile discharge, penile sore, pain, testicle pain, testicle swelling, urgency, others Neurological: denies: dizziness, fainting, headache, left sided numbness, left sided weakness, numbness, paresthesia, pre-existing deficit, right sided numbness, right sided weakness, seizure, speech problems, tingling, tremors, weakness, others Musculoskeletal: denies: back pain, gout, joint pain, joint swelling, muscle pain, muscle stiffness, neck pain, others Integumetry: denies: bruises, change in color, change in hair/nails, dryness, laceration, lesions, lumps, rash, wounds, others Allergic/Immunocompromised: denies: Difficulty Healing, Frequent Infections, Hives, Itching, others Hematologic/Lymphatic: denies: anemia, blood clots, easy bleeding, easy bruising, swollen glands, others Endocrine: denies: excessive hunger, excessive sweating, excessive thirst, excessive urination, flushing, intolerance to cold, intolerance to heat, unexplained weight gain, unexplained weight loss, others Psychiatric: denies: anxiety, bipolar disorder, depression, hopeless, panic disorder, schizophrenia, sleepless, suicidal, others Physical Exam General Appearance: No Apparent Distress, Normal HEENT: Normal ENT Inspection, Pharynx Normal, TMs Normal Neck: Full Range of Motion, Non-Tender, Normal, Normal Inspection Respiratory: Chest Non-Tender, Lungs Clear, No Accessory Muscle Use, No Respiratory Distress, Normal Breath Sounds Cardiovascular: No Edema, No JVD, No Murmur, No Gallop, Normal Peripheral Pulses, Regular Rate/Rhythm Breast Exam: Deferred Gastrointestinal: No Organomegaly, Non Tender, No Pulsatile Mass, Normal Bowel Sounds, Soft Genitalia: Deferred Pelvic: Deferred Rectal: Deferred Extremities: No calf tenderness, Normal capillary refill, Normal inspection, Normal range of motion, Non-tender, No pedal edema Musculoskeletal : Apperance: Normal Neurologic: Alert, leverman II-XII nml as Tested, No Motor Deficits, Normal Affect, Normal Mood, No Sensory Deficits Cerebellar Function: Normal Reflexes: Normal Skin: Dry, Normal Color, Warm Lymphatic: No Adenopathy Was a procedure done? Was a procedure done?: No GI differential Dx Differential Diagnosis: Constipation, Gastritis/PUD, Gastroenteritis, Pancreatitis X-Ray, Labs, Meds, VS Vital Signs Date Time Temp Pulse Resp B/P (MAP) Pulse Ox O2 Delivery O2 Flow Rate FiO2 09/18/24 03:08 98.7 105 17 124/91 (102) 97 98.7 09/18/24 03:08 105 17 97 Room Air 09/18/24 01:55 97.8 108 16 149/119 (129) 99 97.8 Lab Test 09/18/24 02:39 Range/Units White Blood Count 9.8 4.4-10.8 10^3/uL Red Blood Count 3.96 L 4.5-5.90 10^6/uL Hemoglobin 10.9 L 13.5-17.5 g/dL Hematocrit 34.0 L 41.0-53.0 % Mean Corpuscular Volume 85.9 80.0-100.0 fL Mean Corpuscular Hemoglobin 27.6 L 28.0-32.0 pg Mean Corpuscular Hemoglobin Concent 32.2 32.0-36.0 g/dL Red Cell Distribution Width 22.9 H 11.8-14.3 % Platelet Count 471 H 140-450 10^3/uL Mean Platelet Volume 7.4 6.9-10.8 fL Neutrophils (%) (Auto) 75.3 37.0-80.0 % Lymphocytes (%) (Auto) 16.0 10.0-50.0 % Monocytes (%) (Auto) 6.9 0.0-12.0 % Eosinophils (%) (Auto) 1.0 0.0-7.0 % Basophils (%) (Auto) 0.8 0.0-2.0 % Neutrophils # (Auto) 7.4 1.6-8.6 10 ^3/uL Lymphocytes # (Auto) 1.6 0.4-5.4 10 ^3/uL Monocytes # (Auto) 0.7 0-1.3 10 ^3/uL Eosinophils # (Auto) 0.1 0-0.8 10 ^3/uL Basophils # (Auto) 0.1 0-0.2 10 ^3/uL Nucleated Red Blood Cells 0.0 % Sodium Level 138 136-145 mmol/L Potassium Level 4.4 3.5-5.1 mmol/L Chloride Level 106 98-107 mmol/L Carbon Dioxide Level 23 20-31 mmol/L Anion Gap 9 5-15 Blood Urea Nitrogen 12 9-23 mg/dL Creatinine 0.78 0.700-1.30 mg/dL Glomerular Filtration Rate Calc 106 >90 mL/min BUN/Creatinine Ratio 15.4 10.0-20.0 Serum Glucose 96 74-106 mg/dL Calcium Level 10.3 8.7-10.4 mg/dL Total Bilirubin 0.5 0.2-1.0 mg/dL Aspartate Amino Transferase (AST) 12 L 13-40 U/L Alanine Aminotransferase (ALT) < 9 7-40 U/L Alkaline Phosphatase 67 46-116 U/L Total Protein 7.7 5.7-8.2 g/dL Albumin 4.9 H 3.2-4.8 g/dL Lipase 27 12-53 U/L Current Medications Medications (Trade) Dose Ordered Sig/Rick Route Start Time Stop Time Status Last Admin Pantoprazole Sodium (Protonix) 80 mg ONCE ONCE IV 09/18/24 02:45 09/18/24 02:46 DC 09/18/24 03:08 Time of 1ST Reevaluation: 02:22 Reevaluation 1ST: Unchanged Patient Education/Counseling: Diagnosis, Treatment Family Education/Counseling: No Family Present Departure 1 Departure Time of Disposition: 04:06 (Patient with a multiple ER presentations for intractable abdominal pain. We will admit patient to facilitate expert consultation and further workup) Impression: Primary Impression: Intractable abdominal pain Additional Impression: Ulcer Disposition: ADMITTED INPATIENT Admit to: Med Surg Condition: Serious Critical Care Note Critical Care Time?: No Stability Stability form required: No Heart Score Heart Score: Heart Score Response (Comments) Value History N/A 0 EKG N/A 0 Age N/A 0 Risk Factors N/A 0 Troponin N/A 0 Total 0 I personally scribed for LISA REYNOLDS MD ([email or web address]) on 09/18/24 at 02:25. Electronically submitted by Brad Richards ([email or web address]). LISA REYNOLDS MD Sep 18, 2024 02:25
[2024-09-18 02:58] LABS: Basophils # (auto) 0.1 10 ^3/uL (0-0.2); Basophils % (auto) 0.8 % (0.0-2.0); Eosinophils # (auto) 0.1 10 ^3/uL (0-0.8); Hemoglobin 10.9 g/dL (13.5-17.5); Mean Corpuscular Hgb Conc. 32.2 g/dL (32.0-36.0); White Blood Cell 9.8 10^3/uL (4.4-10.8)
[2024-09-18 02:59] LABS: Lymphocytes # (auto) 1.6 10 ^3/uL (0.4-5.4); Mean Corpuscular Hemoglobin 27.6 pg (28.0-32.0); Mean Corpuscular Volume 85.9 fL (80.0-100.0); Monocytes # (auto) 0.7 10 ^3/uL (0-1.3); Monocytes % (auto) 6.9 % (0.0-12.0); Neutrophils # (auto) 7.4 10 ^3/uL (1.6-8.6); Neutrophils % (auto) 75.3 % (37.0-80.0); Platelet Count (auto) 471 10^3/uL (140-450); Red Blood Cells 3.96 10^6/uL (4.5-5.90); Red Cell Distribution Width 22.9 % (11.8-14.3)
[2024-09-18 03:08] LABS: Alkaline Phosphatase 67 U/L (46-116); Anion Gap 9 (5-15); BUN/Creatinine Ratio 15.4 (10.0-20.0); Bilirubin, Total 0.5 mg/dL (0.2-1.0); Blood Urea Nitrogen 12 mg/dL (9-23); Calcium 10.3 mg/dL (8.7-10.4); Carbon Dioxide 23 mmol/L (20-31); Chloride 106 mmol/L (98-107); Glucose 96 mg/dL (74-106); Lipase 27 U/L (12-53); Potassium 4.4 mmol/L (3.5-5.1); Sodium 138 mmol/L (136-145); Total Protein 7.7 g/dL (5.7-8.2)
[2024-09-18] MEDS: PANTOPRAZOLE 40 MG/10 ML VIAL INJ IV ONE (03:08)
[2024-09-18 03:13] LABS: Alanine Aminotransferase < 9 U/L (7-40); Albumin 4.9 g/dL (3.2-4.8); Aspartate Aminotransferase 12 U/L (13-40)
--- NOTE | 2024-09-18 03:53 | DVH ---
CHEST RADIOGRAPH Indication: epigastric pain Technique: Single frontal view of the chest was obtained Comparison: XY CHEST PORTABLE on DOS: 09/16/24, XY CHEST XRAY 1 VIEW on DOS: 08/09/24, XY CHEST XRAY 1 V IEW on DOS: 07/24/24 IMPRESSION: Heart appears normal in size. The lungs appear clear without focal airspace opacity, effusion, or pn eumothorax
[2024-09-18] MEDS: HALOPERIDOL LACTATE 5 MG/ML INJ VIAL IM ONE (05:23)
--- NOTE | 2024-09-18 05:59 | DVHHPRES ---
History of Present Illness Resident Creating Document: BRAULIO RATLIFF RESIDENT History of Present Illness Mr. Galloway is a 54-year-old male with past medical history of asthma, anxiety, depression, peptic ulcer disease, tobacco and alcohol use dependence who presents to the ER with a chief complaint of intractable nausea and severe epigastric pain which is diffuse and intermittent for the past 7 weeks. Reports clear watery vomiting. Last bowel movement was 3 days back. He was recently discharged from this facility on 08/11 for similar complaint on pantoprazole and Carafate. EGD completed 09/01/2024 showed 2- 2.5 cm Brando classification C acute on chronic duodenal bulb ulcer with pyloro duodenal channel deformity and a penetrating edge of the ulcer rule ;out fistula or internal communication. Mild to moderate antral gastritis with pre-pyloric antral gastric erosions and tiny ulcers and there was a 2 cm sliding-type hiatal hernia with no significant erosive esophagitis.. Pathology report from EGD with biopsy showed benign duodenal mucosa with overall intact villous architecture. No dysplasia or malignancy. Stomach biopsy showed mild chronic inactive gastritis. No H pylori seen. No intestinal metapl berny/dysplasia/malignancy He smokes a cigar a day. Does not drink. Patient reports that he has been using aspirin for pain control. He does not take ibuprofen for opiates. He says he has been compliant with pantoprazole and Carafate. Patient denies any constipation or diarrhea or melena or hematochezia. Social history: Smokes a cigar a day, denies drinking alcohol or illicit drug use Home medication: Pantoprazole and sucralfate Patient seen and examined in the ER. Epigastric tenderness. Hypoactive bowel sounds. KUB ordered. Past Surgical History: None Family History: None Smoke: <1 pack per day ALCOHOL: occassional Drugs: None Review of Systems Constitutional: Yes: Weakness Gastrointestinal: Nausea, Vomiting, Abdominal Pain, Constipation Allergies: Coded Allergies: NO KNOWN ALLERGIES (Unverified , 04/16/20) Exam Vital Signs Vital Signs Date Time Temp Pulse Resp B/P (MAP) Pulse Ox O2 Delivery O2 Flow Rate FiO2 09/18/24 03:08 98.7 105 17 124/91 (102) 97 98.7 09/18/24 03:08 Room Air Exam Male patient sitting in the chair in ER comfortably, no acute distress General: Well-built, afebrile, palor, mucosae are moist Cardiovascular: Regular S1 and S2. No murmurs, gallops or rubs. No JVD elevation. No pedal edema Respiratory: Normal B/L air entry on room air. Clear lung sounds on ausculta tion Abdomen: Soft, epigastric tenderness: nondistended, normoactive bowel sounds, no rebound tenderness, no organomegaly, no masses Genitourinary: Deferred MSK/skin: Mobilizes 4 limbs. Skin is dry and warm Neurological: No motor, no sensitive deficits, normal speech. Pupils are isocoric and reactive. Psych/Mental Status: A/Ox3 Labs/Xrays Labs Test 09/18/24 03:39 09/18/24 02:39 Range/Units White Blood Count 9.8 4.4-10.8 10^3/uL Red Blood Count 3.96 L 4.5-5.90 10^6/uL Hemoglobin 10.9 L 13.5-17.5 g/dL Hematocrit 34.0 L 41.0-53.0 % Mean Corpuscular Volume 85.9 80.0-100.0 fL Mean Corpuscular Hemoglobin 27.6 L 28.0-32.0 pg Mean Corpuscular Hemoglobin Concent 32.2 32.0-36.0 g/dL Red Cell Distribution Width 22.9 H 11.8-14.3 % Platelet Count 471 H 140-450 10^3/uL Mean Platelet Volume 7.4 6.9-10.8 fL Neutrophils (%) (Auto) 75.3 37.0-80.0 % Lymphocytes (%) (Auto) 16.0 10.0-50.0 % Monocytes (%) (Auto) 6.9 0.0-12.0 % Eosinophils (%) (Auto) 1.0 0.0-7.0 % Basophils (%) (Auto) 0.8 0.0-2.0 % Neutrophils # (Auto) 7.4 1.6-8.6 10 ^3/uL Lymphocytes # (Auto) 1.6 0.4-5.4 10 ^3/uL Monocytes # (Auto) 0.7 0-1.3 10 ^3/uL Eosinophils # (Auto) 0.1 0-0.8 10 ^3/uL Basophils # (Auto) 0.1 0-0.2 10 ^3/uL Nucleated Red Blood Cells 0.0 % Sodium Level 138 136-145 mmol/L Potassium Level 4.4 3.5-5.1 mmol/L Chloride Level 106 98-107 mmol/L Carbon Dioxide Level 23 20-31 mmol/L Anion Gap 9 5-15 Blood Urea Nitrogen 12 9-23 mg/dL Creatinine 0.78 0.700-1.30 mg/dL Glomerular Filtration Rate Calc 106 >90 mL/min BUN/Creatinine Ratio 15.4 10.0-20.0 Serum Glucose 96 74-106 mg/dL Calcium Level 10.3 8.7-10.4 mg/dL Total Bilirubin 0.5 0.2-1.0 mg/dL Aspartate Amino Transferase (AST) 12 L 13-40 U/L Alanine Aminotransferase (ALT) < 9 7-40 U/L Alkaline Phosphatase 67 46-116 U/L Total Protein 7.7 5.7-8.2 g/dL Albumin 4.9 H 3.2-4.8 g/dL Lipase 27 12-53 U/L Assessment/Plan Assessment/Plan Intractable nausea and epigastric abdominal pain likely secondary to peptic ulcer disease Status post EGD 09/01 with 2- 2.5 cm Brando classification C acute on chronic duodenal bulb ulcer with pyloro duodenal channel deformity and a penetrating edge of the ulcer Mild chronic inactive gastritis seen on biopsy Ruled out H pylori per EGD with biopsy 2 cm sliding-type hiatal hernia Anemia, normocytic Hypertension History of anxiety and depression Nicotine dependence CT abdomen pelvis 09/16 was a normal study with mild distal colonic diverticulosis X-ray KUB ordered given hypoactive bowel sounds EGD completed 09/01/2024 showed 2- 2.5 cm Brando classification C acute on chronic duodenal bulb ulcer with pyloro duodenal channel deformity and a penetrating edge of the ulcer rule ;out fistula or internal communication. Mild to moderate antral gastritis with pre-pyloric antral gastric erosions and tiny ulcers and there was a 2 cm sliding-type hiatal hernia with no significant erosive esophagitis.. Upper GI x-ray with Gastrografin was completed and ruled out duodenal ulcer fistula Pathology report from EGD with biopsy showed benign duodenal mucosa with overall intact villous architecture. No dysplasia or malignancy. Stomach biopsy showed mild chronic inactive gastritis. No H pylori seen. No intestinal metaplasia/dysplasia/malignancy Plan: Mylnta 30ml q8hr IV Protonix 40 mg b.i.d. and Carafate suspension 1 g p.o. q.i.d. Follow up with a KUB 1 g MiraLax daily and docusate Nicotine patch daily Counseled patient regarding cessation of cigar use Diet: Full liquid diet Plan discussed with patient in which all questions have been answered Goal of care discussed with the patient for more than 20 minutes full code Plan discussed with Dr. Reyes Plan discussed with: Patient Date of Service: Sep 18, 2024 Billing Provider: JESUS REYES MD Common Visit Codes: [id number] INP/OBS CARE (HIGH) BRAULIO RATLIFF RESIDENT Sep 18, 2024 05:59 JESUS REYES MD Sep 18, 2024 10:14
[2024-09-18] MEDS: PANTOPRAZOLE 40 MG/10 ML VIAL INJ IV SCH (06:10)
[2024-09-18 06:27] VITALS: BP 123/71; PULSE 95; RESP 18; TEMP 97.6; O2SAT 98
[2024-09-18] MEDS: SUCRALFATE 1 GM/10 ML ORAL SUSP PO ONE (06:44)
[2024-09-18] MEDS ORDERED: MAALOX PLUS or MAALOX 30 ML PO PRN (08:15)
[2024-09-18 08:20] VITALS: BP 122/79; PULSE 101; RESP 16; TEMP 98; O2SAT 97
[2024-09-18 09:36] LABS: Urine Bacteria None Seen /hpf (None Seen)
[2024-09-18 09:45] LABS: Urine Blood Negative /uL (Negative); Urine Clarity Clear (Clear); Urine Color Yellow (Yellow); Urine Hyaline Cast MOD /lpf (0 - 2); Urine Mucus FEW (None Seen); Urine Protein, UAD 1+ (Negative); Urine Specific Gravity 1.045 (1.001-1.035); Urine Squamous Epithelial Cell FEW /hpf (<5); Urine Urobilinogen 4 mg/dL (Negative); Urine WBC 2 /HPF (0-3); Urine pH 5.5 (5.0-9.0)
[2024-09-18 09:55] LABS: Amphetamine Screen, Urine Neg (NEGATIVE); Barbiturate Scree,Urine Neg (NEGATIVE); Benzodiazephine Screen, Urine Neg (NEGATIVE); Cocaine Screen, Urine Neg (NEGATIVE)
[2024-09-18 09:56] LABS: Cannabinoid Screen, Urine Neg (NEGATIVE); Opiate Scree,Urine Neg (NEGATIVE); Phencyclidine Screen, Urine Neg (NEGATIVE)
[2024-09-18] MEDS: SUCRALFATE 1 GM/10 ML ORAL SUSP PO SCH (12:08)
[2024-09-18] MEDS: ONDANSETRON HCL 4 MG/2 ML VIAL IV PRN (12:15)
--- NOTE | 2024-09-18 12:38 | DVHPN2 ---
Reviewed: Care Plan, H&P, Labs, Medications, Previous Orders, Radiology Changes from previous H/P or p: No Changes Gastrointestinal: Nausea, Vomiting, Abdominal Pain, Constipation Objective Vitals Vital Signs Date Time Temp Pulse Resp B/P (MAP) Pulse Ox O2 Delivery O2 Flow Rate FiO2 09/18/24 08:20 98.0 101 16 122/79 (93) 97 98.0 09/18/24 06:27 Room Air* 0 21 Medications Current Medications Medications Dose Ordered Sig/Rick Route Start Time Stop Time Status Last Admin Dose Admin Pantoprazole Sodium 40 mg DAILY IV 09/18/24 06:10 Sucralfate 1 gm QID@0600,1130,1700,2200 PO 09/18/24 11:30 Ondansetron HCl 4 mg Q6HPRN PRN IV 09/18/24 06:15 09/18/24 12:15 4 MG Al Hydrox/Mg Hydrox/Simethicone 30 ml Q8HP PRN PO 09/18/24 08:15 Laboratory Results Laboratory Tests 09/18/24 02:39 Chemistry Test 09/18/24 02:39 Albumin 4.9 g/dL (3.2-4.8) H Calcium Level 10.3 mg/dL (8.7-10.4) Magnesium Level 1.9 mg/dL (1.6-2.6) Total Protein 7.7 g/dL (5.7-8.2) Lipid panel Test 09/18/24 02:39 Lipase 27 U/L (12-53) LFT Test 09/18/24 02:39 Alanine Aminotransferase (ALT) < 9 U/L (7-40) Alkaline Phosphatase 67 U/L (46-116) Aspartate Amino Transferase (AST) 12 U/L (13-40) L Total Bilirubin 0.5 mg/dL (0.2-1.0) HgA1c, TSH Test 09/18/24 02:39 Thyroid Stimulating Hormone (TSH) 0.82 uIU/mL (0.55-4.78) Urinalysis Test 09/18/24 09:13 Urine Color Yellow (Yellow) Urine Clarity Clear (Clear) Urine pH 5.5 (5.0-9.0) Urine Specific [place] 1.045 (1.001-1.035) Urine Protein 1+ (Negative) H Urine Ketones 3+ (Negative) H Urine Blood Negative /uL (Negative) Urine Nitrite Negative (Negative) Urine Bilirubin 1+ (Negative) Urine Urobilinogen 4 mg/dL (Negative) H Urine Leukocyte Esterase Negative /uL (Negative) Urine RBC 1 /hpf (0 - 3) Urine Microscopic WBC 2 /HPF (0-3) Urine Squamous Epithelial Cells Few /hpf (<5) Urine Bacteria None seen /hpf (None Seen) Urine Hyaline Casts Mod /lpf (0 - 2) Urine Mucus Few (None Seen) Urine Glucose Normal mg/dL (Normal) Labs and/or images reviewed: Labs reviewed by me, Image(s) reviewed by me Assessment/Plan Assessment/Plan Intractable nausea and epigastric abdominal pain likely secondary to peptic ulcer disease continue pantoprazole and Carafate Status post EGD 09/01 with 2- 2.5 cm Brando classification C acute on chronic duodenal bulb ulcer with pyloro duodenal channel deformity and a penetrating edge of the ulcer Mild chronic inactive gastritis seen on biopsy Ruled out H pylori per EGD with biopsy 2 cm sliding-type hiatal hernia Anemia, normocytic Hypertension History of anxiety and depression Nicotine dependence Plan discussed with: Patient Date of Service: Sep 18, 2024 Billing Provider: KAMLESH OLMOS MD Common Visit Codes: [id number] INP/OBS CARE(HIGH) KAMLESH OLMOS MD Sep 18, 2024 12:38
[2024-09-18 13:04] VITALS: BP 110/68; PULSE 114; RESP 16; TEMP 98.5; O2SAT 97
[2024-09-18] MEDS: HYDROcodone-ACET 5/325MG TAB PO PRN (15:00)
[2024-09-18 17:09] VITALS: BP 143/83; PULSE 92; RESP 18; TEMP 98.5; O2SAT 95
[2024-09-18 18:27] VITALS: BP 112/76; PULSE 91; RESP 14; TEMP 98.2; O2SAT 97
--- NOTE | 2024-09-18 20:18 | DVHINCON2 ---
Date of service: Sep 18, [address] Rome Reason for Consultation Abdominal pain nausea watery vomiting. And occasional constipation History of duodenal ulcer gastric erosions in the reason past History of Present Illness This 54-year-old male with a history of peptic ulcer disease he has history of alcohol as well as tobacco dependence in pain medications admitted with the complaints of severe abdominal pain in the epigastrium for the last few weeks. Patient had been discharged recently patient had an EGD done which showed some 2 cm for S classification C acute ulcer with pyloric duodenal channel deformity. Patient had upper GI which showed no extravasation. Pathology report showed no malignancy H pylori was negative patient was on pantoprazole and sucralfate. Denies any hematemesis or melena Past Medical History History of ulcer disease Past Surgical History None Family History: Cardiovascular disease G8 MOTHER FH: renal failure G8 FATHER Graves' disease G8 BROTHER Malignant neoplasm of ovary G8 MOTHER Family History Unremarkable Social History History of smoking and drinking and taking pain medication Allergies: Coded Allergies: NO KNOWN ALLERGIES (Unverified , 04/16/20) Home Meds Active Scripts Ondansetron Odt 4MG Tab (ZOFRAN PO) 4 Mg Tb, 4 MG PO TIDPRN PRN for 5 Days, #15 TAB ODT TAB-DISSOLVE IN MOUTH, THEN SWALLOW Prov:TOMMY HOWELL MD 09/16/24 Pantoprazole Sodium Sesquihydr (Protonix) 40 Mg Tab, 40 MG PO BID for 30 Days, #60 TAB Prov:JESUS BRASWELL MD 09/11/24 Sucralfate (Carafate) 1 Gm/10 Ml [place], 10 ML PO QID for 30 Days, #1200 ML Prov:JESUS BRASWELL MD 09/11/24 Hydrocodone-Acetaminophen (Hydrocodone Bitartrate/AC 5-325 mg) 1 Tab Tab, 1 TAB PO Q8HP PRN for 7 Days, #21 TAB Prov:EDYTA DUMONT NP 09/02/24 Discontinued Scripts Pantoprazole Sodium Sesquihydr (Protonix) 40 Mg Tab, 40 MG PO BID for 30 Days, #60 TAB 1 Refill Prov:EDYTA DUMONT NP 09/02/24 Sucralfate (CARAFATE) 1 Gm Tab, 1 GM OR ACHS for 60 Days, #240 TAB Prov:EDYTA DUMONT SALES [employer] MARKETING DIRECTOR 09/02/24 Metronidazole (Flagyl) 500 Mg Tab, 500 MG PO TID for 5 Days, #15 TAB Prov:ALLEN LOOMIS MD 08/28/24 Amoxicillin & Pot Clavulanate (AUGMENTIN TABLET) 875 Mg Tb, 875 MG PO BID for 5 Days, #10 TAB Prov:ALLEN LOOMIS MD 08/28/24 Current Medications Current Medications Medications (Trade) Dose Ordered Sig/Rick Route PRN Reason Start Time Stop Time Status Last Admin Pantoprazole Sodium (Protonix) 40 mg DAILY IV 09/18/24 06:10 Sucralfate (Carafate Susp) 1 gm QID@0600,1130,1700,2200 PO 09/18/24 11:30 09/18/24 17:18 Ondansetron HCl (Zofran) 4 mg Q6HPRN PRN IV NAUSEA / VOMITING 09/18/24 06:15 09/18/24 12:15 Al Hydrox/Mg Hydrox/Simethicone (Maalox Plus) 30 ml Q8HP PRN PO FOR STOMACH DISTRESS 09/18/24 08:15 Acetaminophen/ Hydrocodone Bitart ([place] 5/325MG Tab) 1 tab Q4HPRN PRN PO MODERATE PAIN (4-6 PAIN SCALE) 09/18/24 14:30 09/18/24 20:07 Review of Systems Noncontributory Vital Signs Vital Signs Date Time Temp Pulse Resp B/P (MAP) Pulse Ox O2 Delivery O2 Flow Rate FiO2 09/18/24 18:31 Room Air* 0 21 09/18/24 18:27 98.2 91 14 112/76 (88) 97 98.2 Physical Exam Originally built and nourished male in no acute distress Vitals stable HEENT examination no pallor no icterus Neck is supple no lymphadenopathy Lungs are clear Cardiovascular unremarkable Abdomen is soft mildly tender in the epigastrium no rigidity or guarding or rebound no masses bowel sounds normal Extremities no edema no varicosities Labs/Diagnostic Data Labs Test 09/18/24 09:13 09/18/24 03:39 09/18/24 02:39 Range/Units Urine Color Yellow Yellow Urine Clarity Clear Clear Urine pH 5.5 5.0-9.0 Urine Specific [place] 1.045 H 1.001-1.035 Urine Protein 1+ H Negative Urine Ketones 3+ H Negative Urine Blood Negative Negative /uL Urine Nitrite Negative Negative Urine Bilirubin 1+ Negative Urine Urobilinogen 4 H Negative mg/dL Urine Leukocyte Esterase Negative Negative /uL Urine RBC 1 0 - 3 /hpf Urine Microscopic WBC 2 0-3 /HPF Urine Squamous Epithelial Cells Few <5 /hpf Urine Bacteria None seen None Seen /hpf Urine Hyaline Casts Mod 0 - 2 /lpf Urine Mucus Few None Seen Urine Glucose Normal Normal mg/dL Urine Opiates Screen Neg NEGATIVE Urine Fentanyl Screen Neg NEGATIVE Urine Barbiturates Screen Neg NEGATIVE Urine Phencyclidine Screen Neg NEGATIVE Urine Amphetamines Screen Neg NEGATIVE Urine Benzodiazepines Screen Neg NEGATIVE Urine Cocaine Screen Neg NEGATIVE Urine Cannabinoids Screen Neg NEGATIVE White Blood Count 9.8 4.4-10.8 10^3/uL Red Blood Count 3.96 L 4.5-5.90 10^6/uL Hemoglobin 10.9 L 13.5-17.5 g/dL Hematocrit 34.0 L 41.0-53.0 % Mean Corpuscular Volume 85.9 80.0-100.0 fL Mean Corpuscular Hemoglobin 27.6 L 28.0-32.0 pg Mean Corpuscular Hemoglobin Concent 32.2 32.0-36.0 g/dL Red Cell Distribution Width 22.9 H 11.8-14.3 % Platelet Count 471 H 140-450 10^3/uL Mean Platelet Volume 7.4 6.9-10.8 fL Neutrophils (%) (Auto) 75.3 37.0-80.0 % Lymphocytes (%) (Auto) 16.0 10.0-50.0 % Monocytes (%) (Auto) 6.9 0.0-12.0 % Eosinophils (%) (Auto) 1.0 0.0-7.0 % Basophils (%) (Auto) 0.8 0.0-2.0 % Neutrophils # (Auto) 7.4 1.6-8.6 10 ^3/uL Lymphocytes # (Auto) 1.6 0.4-5.4 10 ^3/uL Monocytes # (Auto) 0.7 0-1.3 10 ^3/uL Eosinophils # (Auto) 0.1 0-0.8 10 ^3/uL Basophils # (Auto) 0.1 0-0.2 10 ^3/uL Nucleated Red Blood Cells 0.0 % Sodium Level 138 136-145 mmol/L Potassium Level 4.4 3.5-5.1 mmol/L Chloride Level 106 98-107 mmol/L Carbon Dioxide Level 23 20-31 mmol/L Anion Gap 9 5-15 Blood Urea Nitrogen 12 9-23 mg/dL Creatinine 0.78 0.700-1.30 mg/dL Glomerular Filtration Rate Calc 106 >90 mL/min BUN/Creatinine Ratio 15.4 10.0-20.0 Serum Glucose 96 74-106 mg/dL Calcium Level 10.3 8.7-10.4 mg/dL Magnesium Level 1.9 1.6-2.6 mg/dL Total Bilirubin 0.5 0.2-1.0 mg/dL Aspartate Amino Transferase (AST) 12 L 13-40 U/L Alanine Aminotransferase (ALT) < 9 7-40 U/L Alkaline Phosphatase 67 46-116 U/L Total Protein 7.7 5.7-8.2 g/dL Albumin 4.9 H 3.2-4.8 g/dL Lipase 27 12-53 U/L Vitamin B12 Level 452 211-911 pg/mL Vitamin D 25-Hydroxy 38.7 30.0-100 ng/mL Thyroid Stimulating Hormone (TSH) 0.82 0.55-4.78 uIU/mL Assessment 54-year-old male with a history of chronic peptic ulcer disease with a history of alcoholism and tobacco had a large duodenal ulcer with erosions in the antrum has been on Protonix and Carafate still having persistent pains still continuing to drink and smoke Physical examination mild tenderness in the epigastrium no masses Clinical impression possible ulcer disease Plan/Recommendation Continue with PPIs and Carafate Avoid alcohol and cigarette in drug like like [place] If symptoms persist we will recommend a CT scan to be repeated with oral contrast with special attention to the duodenum to see if any any leakage etc. May need surgical intervention of the also for the ulcer if ulcer is not healing with medical management Plan discussed with: Patient LOUISE WEISS MD Sep 18, 2024 20:18
[2024-09-18 21:15] VITALS: BP 118/74; PULSE 82; RESP 17; TEMP 98; O2SAT 92
[2024-09-19] VITALS (7 sets, daily range): BP systolic 119–141; BP diastolic 55–83; PULSE 85–107; RESP 17–20; TEMP 98–98.2; O2SAT 95–100
--- NOTE | 2024-09-19 10:08 | DVHPN2 ---
Reviewed: Care Plan, H&P, Labs, Medications, Previous Orders, Radiology Changes from previous H/P or p: No Changes Gastrointestinal: Nausea, Vomiting, Abdominal Pain, Constipation Objective Vitals Vital Signs Date Time Temp Pulse Resp B/P (MAP) Pulse Ox O2 Delivery O2 Flow Rate FiO2 09/19/24 05:00 98.0 97 20 121/80 (94) 97 98.0 09/18/24 20:00 Room Air* 0 21 Intake/Output Intake and Output 09/19/24 07:00 Intake Total 1050 ml Output Total 0 ml Balance 1050 ml Intake Oral 1050 ml Output Urine Total 0 ml Medications Current Medications Medications Dose Ordered Sig/Rick Route Start Time Stop Time Status Last Admin Dose Admin Pantoprazole Sodium 40 mg DAILY IV 09/18/24 06:10 Sucralfate 1 gm QID@0600,1130,1700,2200 PO 09/18/24 11:30 09/19/24 06:02 1 GM Ondansetron HCl 4 mg Q6HPRN PRN IV 09/18/24 06:15 09/18/24 12:15 4 MG Al Hydrox/Mg Hydrox/Simethicone 30 ml Q8HP PRN PO 09/18/24 08:15 Acetaminophen/ Hydrocodone Bitart 1 tab Q4HPRN PRN PO 09/18/24 14:30 09/19/24 06:02 1 TAB Laboratory Results Laboratory Tests 09/18/24 02:39 Urinalysis Test 09/18/24 09:13 Urine Color Yellow (Yellow) Urine Clarity Clear (Clear) Urine pH 5.5 (5.0-9.0) Urine Specific [place] 1.045 (1.001-1.035) Urine Protein 1+ (Negative) H Urine Ketones 3+ (Negative) H Urine Blood Negative /uL (Negative) Urine Nitrite Negative (Negative) Urine Bilirubin 1+ (Negative) Urine Urobilinogen 4 mg/dL (Negative) H Urine Leukocyte Esterase Negative /uL (Negative) Urine RBC 1 /hpf (0 - 3) Urine Microscopic WBC 2 /HPF (0-3) Urine Squamous Epithelial Cells Few /hpf (<5) Urine Bacteria None seen /hpf (None Seen) Urine Hyaline Casts Mod /lpf (0 - 2) Urine Mucus Few (None Seen) Urine Glucose Normal mg/dL (Normal) Labs and/or images reviewed: Labs reviewed by , Image(s) reviewed by me Assessment/Plan Assessment/Plan Intractable nausea and epigastric abdominal pain likely secondary to peptic ulcer disease continue pantoprazole and Carafate GI consult by Dr. 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 Patient does not want Nicoderm patch Patient Not in bed Went for smoking Plan discussed with: Patient My Orders Orders - KAMLESH OLMOS MD Procedure Category Date Status Time * Gi [employer] [employer] CONS 09/18/24 Transmitted 14:28 Hydrocodone-Acet PHA 09/18/24 In Process 5/325mg Tab ([place] 14:30 Date of Service: Sep 19, 2024 Billing Provider: KAMLESH OLMOS MD Common Visit Codes: [id number] INP/OBS CARE(HIGH) KAMLESH OLMOS MD Sep 19, 2024 10:07
--- NOTE | 2024-09-19 18:50 | DVHPN2 ---
Progress Note - Dictate Date Seen: Sep 19, 2024 Has the PT tested + for MRSA If YES, has PT been informed?: Yes Medical Necessity Reason Pt with a Central, PICC or Fol: No Subjective This patient is doing much better without any nausea vomiting or other problems tolerated liquid diet well and wants to eat more vital signs Vital Sign Date Time Temp Pulse Resp B/P (MAP) Pulse Ox O2 Delivery O2 Flow Rate FiO2 09/19/24 17:00 98.0 91 20 119/75 (90) 100 98.0 09/19/24 08:00 Room Air* 0 21 Total Intake and Output 09/18/24 09/18/24 09/19/24 15:00 23:00 07:00 Intake Total 750 ml 300 ml Output Total 0 ml Balance 750 ml 300 ml medications Current Medications Medications Dose Ordered Sig/Rick Route Start Time Stop Time Status Last Admin Dose Admin Pantoprazole Sodium 40 mg DAILY IV 09/18/24 06:10 09/19/24 10:45 40 MG Sucralfate 1 gm QID@0600,1130,1700,2200 PO 09/18/24 11:30 09/19/24 17:59 1 GM Ondansetron HCl 4 mg Q6HPRN PRN IV 09/18/24 06:15 09/18/24 12:15 4 MG Al Hydrox/Mg Hydrox/Simethicone 30 ml Q8HP PRN PO 09/18/24 08:15 Acetaminophen/ Hydrocodone Bitart 1 tab Q4HPRN PRN PO 09/18/24 14:30 09/19/24 10:45 1 TAB objective Abdomen is soft nontender no masses no distention laboratory and microbiology Laboratory Tests 09/18/24 02:39 Test 09/18/24 02:39 Range/Units Serum Glucose 96 74-106 mg/dL Assessment/Plan 54-year-old male with a history of chronic peptic ulcer disease with a history of alcoholism and tobacco had a large duodenal ulcer came with nausea vomiting unable to keep anything down Feeling much better abdomen is soft nontender Suggestions we will recommend to increase the feeds If symptoms persist or worsen may need further evaluation including CT scan or EGD evaluation Thank you Dr. Harrell Plan discussed with: Patient LOUISE HARRELL MD Sep 19, 2024 18:50
[2024-09-20 01:00] VITALS: BP 131/87; PULSE 87; RESP 17; TEMP 98.1; O2SAT 95
[2024-09-20 05:00] VITALS: BP 125/80; PULSE 95; RESP 18; TEMP 98.2; O2SAT 94
[2024-09-20 09:00] VITALS: BP 126/89; PULSE 99; RESP 16; TEMP 98.2; O2SAT 92
--- NOTE | 2024-09-20 11:24 | DVHPN2 ---
Reviewed: Care Plan, H&P, Labs, Medications, Previous Orders, Radiology Changes from previous H/P or p: No Changes Gastrointestinal: Nausea, Vomiting, Abdominal Pain, Constipation Objective Vitals Vital Signs Date Time Temp Pulse Resp B/P (MAP) Pulse Ox O2 Delivery O2 Flow Rate FiO2 09/20/24 09:00 98.2 99 16 126/89 (101) 92 98.2 09/20/24 08:00 Room Air* 0 21 Intake/Output Intake and Output 09/20/24 07:00 Intake Total 718 ml Balance 718 ml Intake Oral 718 ml # Voids 3 Medications Current Medications Medications Dose Ordered Sig/Rick Route Start Time Stop Time Status Last Admin Dose Admin Pantoprazole Sodium 40 mg DAILY IV 09/18/24 06:10 09/20/24 09:40 40 MG Sucralfate 1 gm QID@0600,1130,1700,2200 PO 09/18/24 11:30 09/20/24 09:41 1 GM Ondansetron HCl 4 mg Q6HPRN PRN IV 09/18/24 06:15 09/18/24 12:15 4 MG Al Hydrox/Mg Hydrox/Simethicone 30 ml Q8HP PRN PO 09/18/24 08:15 Acetaminophen/ Hydrocodone Bitart 1 tab Q4HPRN PRN PO 09/18/24 14:30 09/20/24 09:41 1 TAB Laboratory Results Laboratory Tests 09/18/24 02:39 Urinalysis Test 09/18/24 09:13 Urine Color Yellow (Yellow) Urine Clarity Clear (Clear) Urine pH 5.5 (5.0-9.0) Urine Specific [place] 1.045 (1.001-1.035) Urine Protein 1+ (Negative) H Urine Ketones 3+ (Negative) H Urine Blood Negative /uL (Negative) Urine Nitrite Negative (Negative) Urine Bilirubin 1+ (Negative) Urine Urobilinogen 4 mg/dL (Negative) H Urine Leukocyte Esterase Negative /uL (Negative) Urine RBC 1 /hpf (0 - 3) Urine Microscopic WBC 2 /HPF (0-3) Urine Squamous Epithelial Cells Few /hpf (<5) Urine Bacteria None seen /hpf (None Seen) Urine Hyaline Casts Mod /lpf (0 - 2) Urine Mucus Few (None Seen) Urine Glucose Normal mg/dL (Normal) Labs and/or images reviewed: Labs reviewed by me, Image(s) reviewed by me Assessment/Plan Assessment/Plan Intractable nausea and epigastric abdominal pain likely secondary to peptic ulcer disease continue pantoprazole and Carafate GI consult by Dr. 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 Patient does not want Nicoderm patch , smoking counseling 20 minutes Not in bed went for smoking Plan discussed with: Patient My Orders Orders - KAMLESH OLMOS MD Procedure Category Date Status Time Gastrin LAB 09/20/24 Logged 11:08 Date of Service: Sep 20, 2024 Billing Provider: KAMLESH OLMOS MD Common Visit Codes: [id number] INP/OBS CARE(HIGH) Secondary Visit Codes: [id number] CHNG SMOKING >10MIN KAMLESH OLMOS MD Sep 20, 2024 11:24
[2024-09-20 13:00] VITALS: BP 112/80; PULSE 93; TEMP 98; O2SAT 97
[2024-09-20 21:00] VITALS: BP 115/84; PULSE 90; RESP 18; TEMP 98; O2SAT 98
[2024-09-21 05:00] VITALS: BP 119/85; PULSE 86; RESP 18; TEMP 98.4; O2SAT 99
[2024-09-21 08:30] VITALS: BP 124/84; PULSE 89; RESP 16; TEMP 97.6; O2SAT 100
--- NOTE | 2024-09-21 11:06 | DVHPN2 ---
Reviewed: Care Plan, H&P, Labs, Medications, Previous Orders, Radiology Changes from previous H/P or p: No Changes Gastrointestinal: Nausea, Vomiting, Abdominal Pain, Constipation Objective Vitals Vital Signs Date Time Temp Pulse Resp B/P (MAP) Pulse Ox O2 Delivery O2 Flow Rate FiO2 09/21/24 08:30 97.6 89 16 124/84 (97) 100 97.6 09/21/24 07:45 Room Air* 0 21 Intake/Output Intake and Output 09/21/24 07:00 Intake Total 800 ml Balance 800 ml Intake Oral 800 ml # Voids 8 Medications Current Medications Medications Dose Ordered Sig/Rick Route Start Time Stop Time Status Last Admin Dose Admin Pantoprazole Sodium 40 mg DAILY IV 09/18/24 06:10 09/20/24 09:40 40 MG Sucralfate 1 gm QID@0600,1130,1700,2200 PO 09/18/24 11:30 09/21/24 08:36 1 GM Ondansetron HCl 4 mg Q6HPRN PRN IV 09/18/24 06:15 09/18/24 12:15 4 MG Al Hydrox/Mg Hydrox/Simethicone 30 ml Q8HP PRN PO 09/18/24 08:15 Acetaminophen/ Hydrocodone Bitart 1 tab Q4HPRN PRN PO 09/18/24 14:30 09/21/24 10:01 1 TAB Laboratory Results Laboratory Tests 09/18/24 02:39 Urinalysis Test 09/18/24 09:13 Urine Color Yellow (Yellow) Urine Clarity Clear (Clear) Urine pH 5.5 (5.0-9.0) Urine Specific [place] 1.045 (1.001-1.035) Urine Protein 1+ (Negative) H Urine Ketones 3+ (Negative) H Urine Blood Negative /uL (Negative) Urine Nitrite Negative (Negative) Urine Bilirubin 1+ (Negative) Urine Urobilinogen 4 mg/dL (Negative) H Urine Leukocyte Esterase Negative /uL (Negative) Urine RBC 1 /hpf (0 - 3) Urine Microscopic WBC 2 /HPF (0-3) Urine Squamous Epithelial Cells Few /hpf (<5) Urine Bacteria None seen /hpf (None Seen) Urine Hyaline Casts Mod /lpf (0 - 2) Urine Mucus Few (None Seen) Urine Glucose Normal mg/dL (Normal) Labs and/or images reviewed: Labs reviewed by me, Image(s) reviewed by me Assessment/Plan Assessment/Plan Intractable nausea and epigastric abdominal pain likely secondary to peptic ulcer disease continue pantoprazole and Carafate GI consult by Dr. 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 Patient does not want Nicoderm patch , smoking counseling 20 minutes Plan discussed with: Patient My Orders Orders - KAMLESH OLMOS MD Procedure Category Date Status Time Gastrin LAB 09/20/24 In Process 11:08 Date of Service: Sep 21, 2024 Billing Provider: KAMLESH OLMOS MD Common Visit Codes: [id number] INP/OBS CARE(HIGH) KAMLESH OLMOS MD Sep 21, 2024 11:06
[2024-09-21] MEDS ORDERED: HYDR-4902 PO ×2 (11:09)
--- NOTE | 2024-09-21 11:14 | DVHDS2 ---
Discharge Summary Date of Admission Sep 18, 2024 at 05:50 Date of Discharge: Sep 21, 2024 Admitting Diagnosis Abdominal pain Wounds: None Labs/Diagnostic Data: Laboratory Results Test 09/20/24 14:45 09/18/24 09:13 09/18/24 02:39 Urine Color Yellow (Yellow) Urine Clarity Clear (Clear) Urine pH 5.5 (5.0-9.0) Urine Specific [place] 1.045 (1.001-1.035) Urine Protein 1+ (Negative) Urine Ketones 3+ (Negative) Urine Blood Negative /uL (Negative) Urine Nitrite Negative (Negative) Urine Bilirubin 1+ (Negative) Urine Urobilinogen 4 mg/dL (Negative) Urine Leukocyte Esterase Negative /uL (Negative) Urine RBC 1 /hpf (0 - 3) Urine Microscopic WBC 2 /HPF (0-3) Urine Squamous Epithelial Cells Few /hpf (<5) Urine Bacteria None seen /hpf (None Seen) Urine Hyaline Casts Mod /lpf (0 - 2) Urine Mucus Few (None Seen) Urine Glucose Normal mg/dL (Normal) Urine Opiates Screen Neg (NEGATIVE) Urine Fentanyl Screen Neg (NEGATIVE) Urine Barbiturates Screen Neg (NEGATIVE) Urine Phencyclidine Screen Neg (NEGATIVE) Urine Amphetamines Screen Neg (NEGATIVE) Urine Benzodiazepines Screen Neg (NEGATIVE) Urine Cocaine Screen Neg (NEGATIVE) Urine Cannabinoids Screen Neg (NEGATIVE) White Blood Count 9.8 10^3/uL (4.4-10.8) Red Blood Count 3.96 10^6/uL (4.5-5.90) Hemoglobin 10.9 g/dL (13.5-17.5) Hematocrit 34.0 % (41.0-53.0) Mean Corpuscular Volume 85.9 fL (80.0-100.0) Mean Corpuscular Hemoglobin 27.6 pg (28.0-32.0) Mean Corpuscular Hemoglobin Concent 32.2 g/dL (32.0-36.0) Red Cell Distribution Width 22.9 % (11.8-14.3) Platelet Count 471 10^3/uL (140-450) Mean Platelet Volume 7.4 fL (6.9-10.8) Neutrophils (%) (Auto) 75.3 % (37.0-80.0) Lymphocytes (%) (Auto) 16.0 % (10.0-50.0) Monocytes (%) (Auto) 6.9 % (0.0-12.0) Eosinophils (%) (Auto) 1.0 % (0.0-7.0) Basophils (%) (Auto) 0.8 % (0.0-2.0) Neutrophils # (Auto) 7.4 10 ^3/uL (1.6-8.6) Lymphocytes # (Auto) 1.6 10 ^3/uL (0.4-5.4) Monocytes # (Auto) 0.7 10 ^3/uL (0-1.3) Eosinophils # (Auto) 0.1 10 ^3/uL (0-0.8) Basophils # (Auto) 0.1 10 ^3/uL (0-0.2) Nucleated Red Blood Cells 0.0 % Sodium Level 138 mmol/L (136-145) Potassium Level 4.4 mmol/L (3.5-5.1) Chloride Level 106 mmol/L (98-107) Carbon Dioxide Level 23 mmol/L (20-31) Anion Gap 9 (5-15) Blood Urea Nitrogen 12 mg/dL (9-23) Creatinine 0.78 mg/dL (0.700-1.30) Glomerular Filtration Rate Calc 106 mL/min (>90) BUN/Creatinine Ratio 15.4 (10.0-20.0) Serum Glucose 96 mg/dL (74-106) Calcium Level 10.3 mg/dL (8.7-10.4) Magnesium Level 1.9 mg/dL (1.6-2.6) Total Bilirubin 0.5 mg/dL (0.2-1.0) Aspartate Amino Transferase (AST) 12 U/L (13-40) Alanine Aminotransferase (ALT) < 9 U/L (7-40) Alkaline Phosphatase 67 U/L (46-116) Total Protein 7.7 g/dL (5.7-8.2) Albumin 4.9 g/dL (3.2-4.8) Lipase 27 U/L (12-53) Vitamin B12 Level 452 pg/mL (211-911) Vitamin D 25-Hydroxy 38.7 ng/mL (30.0-100) Thyroid Stimulating Hormone (TSH) 0.82 uIU/mL (0.55-4.78) Other Laboratory Tests 09/18/24 02:39 Brief Hx & Hospital Course: Recovery old male came in with a epigastric abdominal pain patient has a history of peptic ulcer disease had EGD on 09/01/2024 which showed 2.5 cm acute on chronic duodenal bulb ulcer with the pyloric and duodenal channel deformity. H pylori was ruled out by EGD and biopsy he also had 2 cm sliding-type hiatal hernia chronic current smoker refused patch history of hypertension anemia and anxiety. Seen by GI Dr. Harrell advised to continue pantoprazole and Carafate. Patient feels better and tolerating diet being discharged home he was strongly advised to quit smoking and follow up with GI Dr. Karoline Zimmer in two weeks. He has enoughf pantoprazole and Carafate at home Consults/Reason for consult GI Dr. Harrell Operations or Procedures CT abdomen pelvis without contrast Condition at Discharge: Fair Final Diagnosis/Problems List Intractable nausea and epigastric abdominal pain likely secondary to peptic ulcer disease continue pantoprazole and Carafate GI consult by Dr. 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 Patient does not want Nicoderm patch , smoking counseling 20 minutes Discharge Disposition: Home Discharge Instruct/Medications Diet: Regular Activity: Light activity Follow Up/Referral: Continue all previous home medications including pantoprazole and Carafate Stop smoking cigarettes Follow up with the GI Dr. Karoline Zimmer in two weeks Medications: [place] Transmitted to pharmacy 35 (Time taken for discharge summary 35 minutes) Discharge Statement: "Patient was advised to return to the ER or call 911 if any headaches, dizziness, shortness of breath, chest pain, abdominal pain, bleeding, fevers, or worsening of medical condition. Patient was counseled about treatment plan, medications, possible side effects, patientverbalized understanding. All questions were answered to the best of my ability. This discharge took greater then 30 minutes in planning, reviewing documentation, counseling the patient, and discussing with other team members." ASSESSMENT ASSESSMENT Hospital Course Uneventful Assessment Intractable nausea and epigastric abdominal pain likely secondary to peptic ulcer disease continue pantoprazole and Carafate GI consult by Dr. 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 Patient does not want Nicoderm patch , smoking counseling 20 minutes Date of Service: Sep 21, 2024 Billing Provider: KAMLESH OLMOS MD Common Visit Codes: [id number] DISCH DAY >30min KAMLESH OLMOS MD Sep 21, 2024 11:14
[2024-09-21 12:05] VITALS: TEMP 36.4
[2024-09-21 12:30] VITALS: BP 135/87; PULSE 104; RESP 16; TEMP 98.1; O2SAT 99
== END 2024-09-21 13:07 | disposition home or self-care (01) | DRG 241 ==
LOC: ER 01:15 → OVERFLOW 05:50 → WEST WING 05:51
PROVIDERS: ADMIT Family Medicine; ATTEND Family Medicine
DX: K27.3 Acute peptic ulcer, site unspecified, without hemorrhage or perforation (principal); D64.9 Anemia, unspecified; F10.20 Alcohol dependence, uncomplicated; K29.70 Gastritis, unspecified, without bleeding; I10 Essential (primary) hypertension; K44.9 Diaphragmatic hernia without obstruction or gangrene; G89.29 Other chronic pain; F41.9 Anxiety disorder, unspecified; F17.210 Nicotine dependence, cigarettes, uncomplicated; Z82.49 Family history of ischemic heart disease and other diseases of the circulatory system; Z71.6 Tobacco abuse counseling
CPT/HCPCS: 36415; 71045; 80053; 80307; 81001; 82306; 82607; 82941; 83690; 83735; 84443; 85025; 96372; 96374; G0378; J2405; J2470

== ENCOUNTER 2024-09-23 20:07 | Emergency (ER) | payer MEDICAID ==
[~2024-09-23] VITALS: Ht 175.3 cm; Wt 57.5 kg
[2024-09-23 21:19] LABS: Alanine Aminotransferase 13 U/L (7-40); Alkaline Phosphatase 62 U/L (46-116); Anion Gap 18 (5-15); Aspartate Aminotransferase 18 U/L (13-40); BUN/Creatinine Ratio 21.4 (10.0-20.0); Blood Urea Nitrogen 18 mg/dL (9-23); Calcium 10.3 mg/dL (8.7-10.4); Chloride 103 mmol/L (98-107); Potassium 4.6 mmol/L (3.5-5.1); Sodium 138 mmol/L (136-145); Total Protein 7.8 g/dL (5.7-8.2)
[2024-09-23 21:20] LABS: Bilirubin, Total 0.4 mg/dL (0.2-1.0)
[2024-09-23 21:22] LABS: Albumin 5.1 g/dL (3.2-4.8); Carbon Dioxide 17 mmol/L (20-31); Glucose 59 mg/dL (74-106)
[2024-09-23 21:24] LABS: Basophils # (auto) 0.1 10 ^3/uL (0-0.2); Basophils % (auto) 0.5 % (0.0-2.0); Eosinophils # (auto) 0 10 ^3/uL (0-0.8); Hematocrit 36.2 % (41.0-53.0); Hemoglobin 11.4 g/dL (13.5-17.5); Lymphocytes # (auto) 1.2 10 ^3/uL (0.4-5.4); Lymphocytes % (auto) 10.7 % (10.0-50.0); Mean Corpuscular Hemoglobin 26.7 pg (28.0-32.0); Mean Corpuscular Hgb Conc. 31.4 g/dL (32.0-36.0); Monocytes # (auto) 0.7 10 ^3/uL (0-1.3); Monocytes % (auto) 5.9 % (0.0-12.0); Neutrophils # (auto) 9.2 10 ^3/uL (1.6-8.6); Neutrophils % (auto) 82.9 % (37.0-80.0); Platelet Count (auto) 566 10^3/uL (140-450); Red Blood Cells 4.26 10^6/uL (4.5-5.90); White Blood Cell 11.1 10^3/uL (4.4-10.8)
[2024-09-23 21:25] LABS: Red Cell Distribution Width 22.3 % (11.8-14.3)
[2024-09-23 21:28] LABS: INR 0.92 (0.9-1.15); Partial Thromboplastin Time 23.9 SEC (24.5-34.5); Prothrombin Time 9.8 sec (9.3-11.8)
--- NOTE | 2024-09-23 21:35 | ED.PDOC ---
GI ASSESSMENT HPI Comments 54-year-old male presents to the ED with a chief complaint of abdominal pain onset today. Patient is seen here multiple times for abdominal pain, nausea/vomiting, was discharged from [facility] on 09/21/24. Has history of chronic abdominal pain. Was seen by GI doctor, endoscopy done revealing ulcers. Was prescribed sucralfate and Protonix. Patient is still complaining of diffuse abdominal pain, hyperemesis, dizziness, generalized weakness that began today around 14:00. Denies chest pain, shortness of breath, headache, fevers. No other symptoms or modifying factors present at this time. Chief Complaint: Nausea/Vomiting Time Seen by MD: 21:20 Primary Care Provider: VLADISLAV Ramey Notes: Medications, Allergies Allergies: Coded Allergies: NO KNOWN ALLERGIES (Unverified , 04/16/20) Home Meds Active Scripts Famotidine (PEPCID TABLET) 20 Mg Tb, 1 TAB PO BID PRN, #60 TAB 5 Refills Prov:ANDREA AHUJA MD 09/23/24 Ondansetron HCl (Ondansetron Hydrochloride) 8 Mg Tab, 8 MG PO Q6HP PRN for 10 Days, #40 TAB Prov:ANDREA AHUJA MD 09/23/24 Hydrocodone-Acetaminophen (Hydrocodone Bitartrate/AC 5-325 mg) 1 Tab Tab, 1 TAB PO QID PRN, #30 TAB Prov:KAMLESH OLMOS MD 09/21/24 Ondansetron Odt 4MG Tab (ZOFRAN PO) 4 Mg Tb, 4 MG PO TIDPRN PRN for 5 Days, #15 TAB ODT TAB-DISSOLVE IN MOUTH, THEN SWALLOW Prov:TOMMY HOWELL MD 09/16/24 Pantoprazole Sodium Sesquihydr (Protonix) 40 Mg Tab, 40 MG PO BID for 30 Days, #60 TAB Prov:JESUS BRASWELL MD 09/11/24 Sucralfate (Carafate) 1 Gm/10 Ml Shirin, 10 ML PO QID for 30 Days, #1200 ML Prov:JESUS BRASWELL MD 09/11/24 Hydrocodone-Acetaminophen (Hydrocodone Bitartrate/AC 5-325 mg) 1 Tab Tab, 1 TAB PO Q8HP PRN for 7 Days, #21 TAB Prov:EDYTA DUMONT NP 09/02/24 Information Source: Patient Mode of Arrival: Ambulatory Timing: Hours Duration: Since onset Prehospital treatment: None Quality: Sharp Severity: Moderate Recent: None Recent Hx of: Ulcer Disease Pain Location: Diffuse Modifying Factors: Nothing Associated sign and symptoms: Nausea, Vomiting, Hematemesis, Abdominal Pain Past Medical History PAST MEDICAL HISTORY: Anemia, Anxiety, Depression, HTN, PUD Surgical History: Denies all surgeries Family History Family History: Reviewed,noncontributory to illness, Family hx of Cancer Social History Smoker: Cigarettes Alcohol: Sober Drugs: Denies Drug Use Lives In: Home Constitutional: reports: weakness; denies: chills, diaphoresis, fatigue, fever, malaise, sweats, others EENTM: denies: blurred vision, double vision, ear bleeding, ear discharge, ear drainage, ear pain, ear ringing, eye pain, eye redness, hearing loss, mouth pain, mouth swelling, nasal discharge, nose bleeding, nose congestion, nose pain, photophobia, tearing, throat pain, throat swelling, voice changes, others Respiratory: denies: cough, hemoptysis, orthopnea, SOB at rest, shortness of breath, SOB with excertion, stridor, wheezing, others Cardiovascular: denies: chest pain, dizzy spells, diaphoresis, Dyspnea on exertion, edema, irregular heart beat, left arm pain, lightheadedness, palpitations, PND, syncope, others Gastrointestinal: reports: abdominal pain, hematemesis, nausea, vomiting Genitourinary: denies: burning, dysuria, flank pain, frequency, hematuria, incontinence, penile discharge, penile sore, pain, testicle pain, testicle swelling, urgency, others Neurological: reports: dizziness, weakness; denies: fainting, headache, left sided numbness, left sided weakness, numbness, paresthesia, pre-existing deficit, right sided numbness, right sided weakness, seizure, speech problems, tingling, tremors, others Musculoskeletal: denies: back pain, gout, joint pain, joint swelling, muscle pain, muscle stiffness, neck pain, others Integumetry: denies: bruises, change in color, change in hair/nails, dryness, laceration, lesions, lumps, rash, wounds, others Allergic/Immunocompromised: denies: Difficulty Healing, Frequent Infections, Hives, Itching, others Hematologic/Lymphatic: denies: anemia, blood clots, easy bleeding, easy bruising, swollen glands, others Endocrine: denies: excessive hunger, excessive sweating, excessive thirst, excessive urination, flushing, intolerance to cold, intolerance to heat, unexplained weight gain, unexplained weight loss, others Psychiatric: denies: anxiety, bipolar disorder, depression, hopeless, panic disorder, schizophrenia, sleepless, suicidal, others All Other Systems: Reviewed and Negative Physical Exam General Appearance: No Apparent Distress, Normal HEENT: Normal ENT Inspection, Pharynx Normal, TMs Normal Neck: Full Range of Motion, Non-Tender, Normal, Normal Inspection Respiratory: Chest Non-Tender, Lungs Clear, No Accessory Muscle Use, No Respiratory Distress, Normal Breath Sounds Cardiovascular: No Edema, No JVD, No Murmur, No Gallop, Normal Peripheral Pulses, Regular Rate/Rhythm Breast Exam: Deferred Gastrointestinal: No Organomegaly, Non Tender, No Pulsatile Mass, Normal Bowel Sounds, Soft Genitalia: Deferred Pelvic: Deferred Rectal: Deferred Extremities: No calf tenderness, Normal capillary refill, Normal inspection, Normal range of motion, Non-tender, No pedal edema Musculoskeletal : Apperance: Normal Neurologic: Alert, cycle analyst II-XII nml as Tested, No Motor Deficits, Normal Affect, Normal Mood, No Sensory Deficits Cerebellar Function: Normal Reflexes: Normal Skin: Dry, Normal Color, Warm Lymphatic: No Adenopathy Was a procedure done? Was a procedure done?: No GI differential Dx Differential Diagnosis: Bowel Obstruction, Esophageal rupture, Esophagitis, Gastritis/PUD, Gastroenteritis, GI hemorrhage, Electrolyte Imbalance, Anemia, Other X-Ray, Labs, Meds, VS Vital Signs Date Time Temp Pulse Resp B/P (MAP) Pulse Ox O2 Delivery O2 Flow Rate FiO2 09/23/24 21:00 98.5 109 16 119/74 (89) 99 98.5 Lab Test 09/23/24 20:51 Range/Units White Blood Count 11.1 H 4.4-10.8 10^3/uL Red Blood Count 4.26 L 4.5-5.90 10^6/uL Hemoglobin 11.4 L 13.5-17.5 g/dL Hematocrit 36.2 L 41.0-53.0 % Mean Corpuscular Volume 85.0 80.0-100.0 fL Mean Corpuscular Hemoglobin 26.7 L 28.0-32.0 pg Mean Corpuscular Hemoglobin Concent 31.4 L 32.0-36.0 g/dL Red Cell Distribution Width 22.3 H 11.8-14.3 % Platelet Count 566 H 140-450 10^3/uL Mean Platelet Volume 7.5 6.9-10.8 fL Neutrophils (%) (Auto) 82.9 H 37.0-80.0 % Lymphocytes (%) (Auto) 10.7 10.0-50.0 % Monocytes (%) (Auto) 5.9 0.0-12.0 % Eosinophils (%) (Auto) 0.0 0.0-7.0 % Basophils (%) (Auto) 0.5 0.0-2.0 % Neutrophils # (Auto) 9.2 H 1.6-8.6 10 ^3/uL Lymphocytes # (Auto) 1.2 0.4-5.4 10 ^3/uL Monocytes # (Auto) 0.7 0-1.3 10 ^3/uL Eosinophils # (Auto) 0 0-0.8 10 ^3/uL Basophils # (Auto) 0.1 0-0.2 10 ^3/uL Nucleated Red Blood Cells 0.0 % Prothrombin Time 9.8 9.3-11.8 sec Prothrombin Time INR 0.92 0.9-1.15 Activated Partial Thromboplast Time 23.9 L 24.5-34.5 SEC Sodium Level 138 136-145 mmol/L Potassium Level 4.6 3.5-5.1 mmol/L Chloride Level 103 98-107 mmol/L Carbon Dioxide Level 17 L 20-31 mmol/L Anion Gap 18 H 5-15 Blood Urea Nitrogen 18 9-23 mg/dL Creatinine 0.84 0.700-1.30 mg/dL Glomerular Filtration Rate Calc 104 >90 mL/min BUN/Creatinine Ratio 21.4 H 10.0-20.0 Serum Glucose 59 L 74-106 mg/dL Calcium Level 10.3 8.7-10.4 mg/dL Total Bilirubin 0.4 0.2-1.0 mg/dL Aspartate Amino Transferase (AST) 18 13-40 U/L Alanine Aminotransferase (ALT) 13 7-40 U/L Alkaline Phosphatase 62 46-116 U/L Total Protein 7.8 5.7-8.2 g/dL Albumin 5.1 H 3.2-4.8 g/dL Time of 1ST Reevaluation: 21:50 Reevaluation 1ST: Unchanged Time of 2ND Reevaluation: 22:57 Reevaluation 2ND: Improved Patient Education/Counseling: Diagnosis, Treatment, Prognosis Family Education/Counseling: No Family Present Additional Information The following tests were ordered, and results were reviewed by me: CBC, CMP, PTPTT I discussed treatment and results with medical personnel and: Patient Comprehensive systems review obtained and negative except for what is stated in the HPI. Departure 1 Departure Time of Disposition: 22:57 Impression: Primary Impression: Alcohol abuse Additional Impressions: Epigastric pain Nausea and vomiting Disposition: HOME / SELF CARE / HOMELESS Condition: Stable e-Prescriptions Famotidine (PEPCID TABLET) 20 Mg Tb 1 TAB PO BID PRN, #60 TAB 5 Refills Prov: ANDREA AHUJA MD 09/23/24 Ondansetron HCl (Ondansetron Hydrochloride) 8 Mg Tab 8 MG PO Q6HP PRN for 10 Days, #40 TAB Prov: ANDREA AHUJA MD 09/23/24 Discharged With: Self Critical Care Note Critical Care Time?: No Stability Stability form required: No I personally scribed for ANDREA AHUJA MD ([email or web address]) on 09/23/24 at 21:35. Electronically submitted by Lamar Woodson ([email or web address]). I personally scribed for ANDREA AHUJA MD ([email or web address]) on 09/23/24 at 21:39. Electronically submitted by Lamar Woodson ([email or web address]). I personally scribed for ANDREA AHUJA MD ([email or web address]) on 09/23/24 at 21:58. Electronically submitted by Lamar Woodson ([email or web address]). ANDREA AHUJA MD Sep 23, 2024 21:35
[2024-09-23] MEDS ORDERED: FAMO20TA10 PO (22:35)
[2024-09-23] MEDS ORDERED: ONDA-180 PO (22:35)
[2024-09-24] MEDS: FAMOTIDINE (10MG/ML) 2ML VL IV ONE (00:24)
[2024-09-24] MEDS: SODIUM CHLORIDE 0.9% 1,000 ML IVB ONE (00:24)
[2024-09-24] MEDS: ONDANSETRON HCL 4 MG/2 ML VIAL IV ONE (00:24)
[2024-09-24 00:42] VITALS: BP 141/100; PULSE 104; RESP 19; TEMP 98.6; O2SAT 97
== END 2024-09-24 01:08 | disposition home or self-care (01) ==
LOC: ER 20:07
DX: R10.13 Epigastric pain (principal); F10.10 Alcohol abuse, uncomplicated; R11.2 Nausea with vomiting, unspecified; F17.210 Nicotine dependence, cigarettes, uncomplicated; I10 Essential (primary) hypertension; F41.9 Anxiety disorder, unspecified; D64.9 Anemia, unspecified; Z79.899 Other long term (current) drug therapy; Z87.11 Personal history of peptic ulcer disease
CPT/HCPCS: 36415; 80053; 85025; 85610; 85730; 96361; 96374; 96375; 99284; J2405; J3490; J7030

== ENCOUNTER 2024-09-26 01:32 | Emergency (ER) | payer MEDICAID ==
[~2024-09-26] VITALS: Ht 175.3 cm; Wt 63.1 kg
[~2024-09-26 01:32] MED LIST changes: +FAMO20TA10 PO; +ONDA-180 PO
--- NOTE | 2024-09-26 02:23 | ED.PDOC ---
GI ASSESSMENT HPI Comments 54-year-old male presents to the ED with a chief complaint of abdominal pain onset today. Patient is seen here multiple times for abdominal pain, nausea/vomiting, was discharged from [facility] on 09/21/24. Has history of chronic abdominal pain. Was seen by GI doctor, endoscopy done revealing ulcers. Patient coming in still complaining of epigastric abdominal pain with nausea and vomiting. States [place] prescribed offers no relief of the pain. Chief Complaint: Abdominal Pain Time Seen by MD: 02:22 Primary Care Provider: VLADISLAV Reviewed Notes: Nurses Notes Allergies: Coded Allergies: NO KNOWN ALLERGIES (Unverified , 04/16/20) Home Meds Active Scripts Famotidine (PEPCID TABLET) 20 Mg Tb, 1 TAB PO BID PRN, #60 TAB 5 Refills Prov:ANDREA AHUJA MD 09/26/24 Dicyclomine Hcl (BENTYL CAPSULE) 10 Mg Cp, 1 CAP PO Q6HPRN PRN, #100 CAP 3 Refills Prov:ANDREA AHUJA MD 09/26/24 Famotidine (PEPCID TABLET) 20 Mg Tb, 1 TAB PO BID PRN, #60 TAB 5 Refills Prov:ANDREA AHUJA MD 09/23/24 Ondansetron HCl (Ondansetron Hydrochloride) 8 Mg Tab, 8 MG PO Q6HP PRN for 10 Days, #40 TAB Prov:ANDREA AHUJA MD 09/23/24 Hydrocodone-Acetaminophen (Hydrocodone Bitartrate/AC 5-325 mg) 1 Tab Tab, 1 TAB PO QID PRN, #30 TAB Prov:KAMLESH OLMOS MD 09/21/24 Ondansetron Odt 4MG Tab (ZOFRAN PO) 4 Mg Tb, 4 MG PO TIDPRN PRN for 5 Days, #15 TAB ODT TAB-DISSOLVE IN MOUTH, THEN SWALLOW Prov:TOMMY HOWELL MD 09/16/24 Pantoprazole Sodium Sesquihydr (Protonix) 40 Mg Tab, 40 MG PO BID for 30 Days, #60 TAB Prov:JESUS BRASWELL MD 09/11/24 Sucralfate (Carafate) 1 Gm/10 Ml Shirin, 10 ML PO QID for 30 Days, #1200 ML Prov:JESUS BRASWELL MD 09/11/24 Hydrocodone-Acetaminophen (Hydrocodone Bitartrate/AC 5-325 mg) 1 Tab Tab, 1 TAB PO Q8HP PRN for 7 Days, #21 TAB Prov:EDYTA DUMONT NP 09/02/24 Information Source: Patient Mode of Arrival: Ambulatory Timing: Hours Duration: Since onset Prehospital treatment: None Quality: Sharp, Stabbing Vomitus: Watery Stool: Normal Severity: Moderate Recent: None Recent Hx of: Ulcer Disease Pain Location: Epigastric Modifying Factors: Nothing Associated sign and symptoms: Abdominal Pain Past Medical History PAST MEDICAL HISTORY: Anemia, Anxiety, Depression, HTN, PUD Surgical History: Denies all surgeries Family History Family History: Reviewed,noncontributory to illness, Family hx of Cancer Social History Smoker: Cigarettes Alcohol: Sober Drugs: Denies Drug Use Lives In: Home Constitutional: denies: chills, diaphoresis, fatigue, fever, malaise, sweats, weakness, others EENTM: denies: blurred vision, double vision, ear bleeding, ear discharge, ear drainage, ear pain, ear ringing, eye pain, eye redness, hearing loss, mouth pain, mouth swelling, nasal discharge, nose bleeding, nose congestion, nose pain, photophobia, tearing, throat pain, throat swelling, voice changes, others Respiratory: denies: cough, hemoptysis, orthopnea, SOB at rest, shortness of breath, SOB with excertion, stridor, wheezing, others Cardiovascular: denies: chest pain, dizzy spells, diaphoresis, Dyspnea on exertion, edema, irregular heart beat, left arm pain, lightheadedness, palpitations, PND, syncope, others Gastrointestinal: reports: abdominal pain; denies: abdomen distended, blood streaked bowels, constipated, diarrhea, dysphagia, difficulty swallowing, hematemesis, melena, nausea, poor appetite, poor fluid intake, rectal bleeding, rectal pain, vomiting, others Genitourinary: denies: burning, dysuria, flank pain, frequency, hematuria, incontinence, penile discharge, penile sore, pain, testicle pain, testicle swelling, urgency, others Neurological: denies: dizziness, fainting, headache, left sided numbness, left sided weakness, numbness, paresthesia, pre-existing deficit, right sided numbness, right sided weakness, seizure, speech problems, tingling, tremors, weakness, others Musculoskeletal: denies: back pain, gout, joint pain, joint swelling, muscle pain, muscle stiffness, neck pain, others Integumetry: denies: bruises, change in color, change in hair/nails, dryness, laceration, lesions, lumps, rash, wounds, others Allergic/Immunocompromised: denies: Difficulty Healing, Frequent Infections, Hives, Itching, others Hematologic/Lymphatic: denies: anemia, blood clots, easy bleeding, easy bruising, swollen glands, others Endocrine: denies: excessive hunger, excessive sweating, excessive thirst, excessive urination, flushing, intolerance to cold, intolerance to heat, unexplained weight gain, unexplained weight loss, others Psychiatric: denies: anxiety, bipolar disorder, depression, hopeless, panic disorder, schizophrenia, sleepless, suicidal, others Physical Exam General Appearance: No Apparent Distress, Normal HEENT: Normal ENT Inspection, Pharynx Normal, TMs Normal Neck: Full Range of Motion, Non-Tender, Normal, Normal Inspection Respiratory: Chest Non-Tender, Lungs Clear, No Accessory Muscle Use, No Respiratory Distress, Normal Breath Sounds Cardiovascular: No Edema, No JVD, No Murmur, No Gallop, Normal Peripheral Pu lses, Regular Rate/Rhythm Breast Exam: Deferred Gastrointestinal: No Organomegaly, Non Tender, No Pulsatile Mass, Normal Bowel Sounds, Soft Genitalia: Deferred Pelvic: Deferred Rectal: Deferred Extremities: No calf tenderness, Normal capillary refill, Normal inspection, Normal range of motion, Non-tender, No pedal edema Musculoskeletal : Apperance: Normal 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 Was a procedure done?: No GI differential Dx Differential Diagnosis: Diverticular disease, Gastritis/PUD, Gastroenteritis, Pancreatitis X-Ray, Labs, Meds, VS Vital Signs Date Time Temp Pulse Resp B/P (MAP) Pulse Ox O2 Delivery O2 Flow Rate FiO2 09/26/24 02:11 98.0 112 19 128/82 (97) 99 98.0 Lab Test 09/26/24 03:43 09/26/24 02:33 Range/Units Troponin I High Sensitivity < 3 L < 3 L </=54 ng/L White Blood Count 11.7 H 4.4-10.8 10^3/uL Red Blood Count 4.02 L 4.5-5.90 10^6/uL Hemoglobin 10.6 L 13.5-17.5 g/dL Hematocrit 33.4 L 41.0-53.0 % Mean Corpuscular Volume 83.0 80.0-100.0 fL Mean Corpuscular Hemoglobin 26.5 L 28.0-32.0 pg Mean Corpuscular Hemoglobin Concent 31.9 L 32.0-36.0 g/dL Red Cell Distribution Width 22.1 H 11.8-14.3 % Platelet Count 530 H 140-450 10^3/uL Mean Platelet Volume 7.4 6.9-10.8 fL Neutrophils (%) (Auto) 72.1 37.0-80.0 % Lymphocytes (%) (Auto) 17.4 10.0-50.0 % Monocytes (%) (Auto) 8.9 0.0-12.0 % Eosinophils (%) (Auto) 1.0 0.0-7.0 % Basophils (%) (Auto) 0.6 0.0-2.0 % Neutrophils # (Auto) 8.4 1.6-8.6 10 ^3/uL Lymphocytes # (Auto) 2.0 0.4-5.4 10 ^3/uL Monocytes # (Auto) 1.0 0-1.3 10 ^3/uL Eosinophils # (Auto) 0.1 0-0.8 10 ^3/uL Basophils # (Auto) 0.1 0-0.2 10 ^3/uL Nucleated Red Blood Cells 0.1 % Sodium Level 138 136-145 mmol/L Potassium Level 3.2 L 3.5-5.1 mmol/L Chloride Level 104 98-107 mmol/L Carbon Dioxide Level 24 20-31 mmol/L Anion Gap 10 5-15 Blood Urea Nitrogen 17 9-23 mg/dL Creatinine 0.73 0.700-1.30 mg/dL Glomerular Filtration Rate Calc 108 >90 mL/min BUN/Creatinine Ratio 23.3 H 10.0-20.0 Serum Glucose 99 74-106 mg/dL Calcium Level 10.0 8.7-10.4 mg/dL Magnesium Level 1.6 1.6-2.6 mg/dL Total Bilirubin 0.3 0.2-1.0 mg/dL Aspartate Amino Transferase (AST) 12 L 13-40 U/L Alanine Aminotransferase (ALT) 9 7-40 U/L Alkaline Phosphatase 54 46-116 U/L Total Protein 7.3 5.7-8.2 g/dL Albumin 4.8 3.2-4.8 g/dL Lipase 27 12-53 U/L Time of 1ST Reevaluation: 02:21 Reevaluation 1ST: Unchanged Patient Education/Counseling: Diagnosis, Treatment Family Education/Counseling: No Family Present Departure 1 Departure Time of Disposition: 05:18 Impression: Primary Impression: Alcoholic gastritis Additional Impression: Schizophrenia Disposition: 01 HOME / SELF CARE / HOMELESS Condition: Stable e-Prescriptions Famotidine (PEPCID TABLET) 20 Mg Tb 1 TAB PO BID PRN, #60 TAB 5 Refills Prov: ANDREA AHUJA MD 09/26/24 Dicyclomine Hcl (BENTYL CAPSULE) 10 Mg Cp 1 CAP PO Q6HPRN PRN, #100 CAP 3 Refills Prov: ANDREA AHUJA MD 09/26/24 Discharged With: Self Critical Care Note Critical Care Time?: No Stability Stability form required: No Heart Score Heart Score: Heart Score Response (Comments) Value History N/A 0 EKG N/A 0 Age N/A 0 Risk Factors N/A 0 Troponin N/A 0 Total 0 I personally scribed for ANDREA AHUJA MD ([email or web address]) on 09/26/24 at 02:23. Electronically submitted by Brad Richards ([email or web address]). ANDREA AHUJA MD Sep 26, 2024 02:23
[2024-09-26] MEDS: ONDANSETRON HCL 4 MG/2 ML VIAL IV ONE (02:30)
[2024-09-26] MEDS: diphenhdrAMINE HCL 50 MG/1 ML VL IV ONE (02:30)
[2024-09-26] MEDS: SODIUM CHLORIDE 0.9% 1,000 ML IVB ONE (02:30)
[2024-09-26] MEDS: FAMOTIDINE (10MG/ML) 2ML VL IV ONE (02:30)
[2024-09-26] MEDS: HALOPERIDOL LACTATE 5 MG/ML INJ VIAL IM ONE (02:30)
[2024-09-26 03:07] LABS: Basophils # (auto) 0.1 10 ^3/uL (0-0.2); Eosinophils # (auto) 0.1 10 ^3/uL (0-0.8); Hemoglobin 10.6 g/dL (13.5-17.5); Monocytes % (auto) 8.9 % (0.0-12.0); Nucleated Red Blood Cells % 0.1 %
[2024-09-26 03:11] LABS: Basophils % (auto) 0.6 % (0.0-2.0); Hematocrit 33.4 % (41.0-53.0); Lymphocytes % (auto) 17.4 % (10.0-50.0); Mean Corpuscular Hemoglobin 26.5 pg (28.0-32.0); Mean Corpuscular Hgb Conc. 31.9 g/dL (32.0-36.0); Neutrophils # (auto) 8.4 10 ^3/uL (1.6-8.6); Neutrophils % (auto) 72.1 % (37.0-80.0); Platelet Count (auto) 530 10^3/uL (140-450); Red Blood Cells 4.02 10^6/uL (4.5-5.90); Red Cell Distribution Width 22.1 % (11.8-14.3); White Blood Cell 11.7 10^3/uL (4.4-10.8)
[2024-09-26 03:18] LABS: Albumin 4.8 g/dL (3.2-4.8); Alkaline Phosphatase 54 U/L (46-116); Anion Gap 10 (5-15); BUN/Creatinine Ratio 23.3 (10.0-20.0); Blood Urea Nitrogen 17 mg/dL (9-23); Carbon Dioxide 24 mmol/L (20-31); Chloride 104 mmol/L (98-107); Glucose 99 mg/dL (74-106); Lipase 27 U/L (12-53); Magnesium 1.6 mg/dL (1.6-2.6); Sodium 138 mmol/L (136-145); Total Protein 7.3 g/dL (5.7-8.2)
[2024-09-26 03:20] LABS: Alanine Aminotransferase 9 U/L (7-40); Aspartate Aminotransferase 12 U/L (13-40); Bilirubin, Total 0.3 mg/dL (0.2-1.0); Potassium 3.2 mmol/L (3.5-5.1)
[2024-09-26] MEDS ORDERED: DICY10CA PO (05:17)
[2024-09-26 06:50] VITALS: BP 115/85; PULSE 100; RESP 18; TEMP 98.4; O2SAT 99
[2024-09-26] MEDS: POTASSIUM CHL 20 Meq TABLET PO ONE (06:58)
== END 2024-09-26 07:16 | disposition home or self-care (01) ==
LOC: ER 01:32
DX: K29.20 Alcoholic gastritis without bleeding (principal); F20.9 Schizophrenia, unspecified; F41.9 Anxiety disorder, unspecified; I10 Essential (primary) hypertension; F17.210 Nicotine dependence, cigarettes, uncomplicated; Z87.11 Personal history of peptic ulcer disease; Z79.899 Other long term (current) drug therapy
CPT/HCPCS: 36415; 80053; 83690; 83735; 84484; 85025

== ENCOUNTER 2024-10-01 21:20 | Emergency (ER) | payer MEDICAID ==
[~2024-10-01] VITALS: Ht 175.3 cm; Wt 57.3 kg
[~2024-10-01 21:20] MED LIST changes: +DICY10CA PO
[2024-10-01 21:42] VITALS: BP 125/69; PULSE 109; RESP 18; TEMP 98.4; O2SAT 97
--- NOTE | 2024-10-01 22:30 | ED.PDOC ---
GI ASSESSMENT HPI Comments 54-year-old male came to ER for abdominal pain. Patient seen here multiple times for abdominal pain. Has history of alcoholism and peptic ulcer disease. Patient still complaining of epigastric abdominal pain. Chief Complaint: Abdominal Pain Time Seen by MD: 22:29 Primary Care Provider: VLADISLAV Ramey Notes: Nurses Notes Allergies: Coded Allergies: NO KNOWN ALLERGIES (Unverified , 04/16/20) Home Meds Active Scripts Famotidine (PEPCID TABLET) 20 Mg Tb, 1 TAB PO BID PRN, #60 TAB 5 Refills Prov:ANDREA AHUJA MD 09/26/24 Dicyclomine Hcl (BENTYL CAPSULE) 10 Mg Cp, 1 CAP PO Q6HPRN PRN, #100 CAP 3 Refills Prov:ANDREA AHUJA MD 09/26/24 Famotidine (PEPCID TABLET) 20 Mg Tb, 1 TAB PO BID PRN, #60 TAB 5 Refills Prov:ANDREA AHUJA MD 09/23/24 Ondansetron HCl (Ondansetron Hydrochloride) 8 Mg Tab, 8 MG PO Q6HP PRN for 10 Days, #40 TAB Prov:ANDREA AHUJA MD 09/23/24 Hydrocodone-Acetaminophen (Hydrocodone Bitartrate/AC 5-325 mg) 1 Tab Tab, 1 TAB PO QID PRN, #30 TAB Prov:KAMLESH OLMOS MD 09/21/24 Ondansetron Odt 4MG Tab (ZOFRAN PO) 4 Mg Tb, 4 MG PO TIDPRN PRN for 5 Days, #15 TAB ODT TAB-DISSOLVE IN MOUTH, THEN SWALLOW Prov:TOMMY HOWELL MD 09/16/24 Pantoprazole Sodium Sesquihydr (Protonix) 40 Mg Tab, 40 MG PO BID for 30 Days, #60 TAB Prov:JESUS BRASWELL MD 09/11/24 Sucralfate (Carafate) 1 Gm/10 Ml Shirin, 10 ML PO QID for 30 Days, #1200 ML Prov:JESUS BRASWELL MD 09/11/24 Hydrocodone-Acetaminophen (Hydrocodone Bitartrate/AC 5-325 mg) 1 Tab Tab, 1 TAB PO Q8HP PRN for 7 Days, #21 TAB Prov:EDYTA DUMONT NP 09/02/24 Information Source: Patient Mode of Arrival: Ambulatory Timing: Hours Duration: Since onset Quality: Cramping, Sharp Vomitus: None Stool: Normal Recent Hx of: Ulcer Disease Pain Location: Epigastric Modifying Factors: Nothing Associated sign and symptoms: Abdominal Pain Past Medical History PAST MEDICAL HISTORY: Anemia, Anxiety, Depression, HTN, PUD Surgical History: Denies all surgeries Family History Family History: Reviewed,noncontributory to illness, Family hx of Cancer Social History Smoker: Cigarettes Alcohol: Heavy Drugs: Denies Drug Use Lives In: Home Constitutional: denies: chills, diaphoresis, fatigue, fever, malaise, sweats, weakness, others EENTM: denies: blurred vision, double vision, ear bleeding, ear discharge, ear drainage, ear pain, ear ringing, eye pain, eye redness, hearing loss, mouth pain, mouth swelling, nasal discharge, nose bleeding, nose congestion, nose pain, photophobia, tearing, throat pain, throat swelling, voice changes, others Respiratory: denies: cough, hemoptysis, orthopnea, SOB at rest, shortness of breath, SOB with excertion, stridor, wheezing, others Cardiovascular: denies: chest pain, dizzy spells, diaphoresis, Dyspnea on exertion, edema, irregular heart beat, left arm pain, lightheadedness, palpitations, PND, syncope, others Gastrointestinal: reports: abdominal pain; denies: abdomen distended, blood streaked bowels, constipated, diarrhea, dysphagia, difficulty swallowing, hematemesis, melena, nausea, poor appetite, poor fluid intake, rectal bleeding, rectal pain, vomiting, others Genitourinary: denies: burning, dysuria, flank pain, frequency, hematuria, incontinence, penile discharge, penile sore, pain, testicle pain, testicle swelling, urgency, others Neurological: denies: dizziness, fainting, headache, left sided numbness, left sided weakness, numbness, paresthesia, pre-existing deficit, right sided numbness, right sided weakness, seizure, speech problems, tingling, tremors, weakness, others Musculoskeletal: denies: back pain, gout, joint pain, joint swelling, muscle pain, muscle stiffness, neck pain, others Integumetry: denies: bruises, change in color, change in hair/nails, dryness, laceration, lesions, lumps, rash, wounds, others Allergic/Immunocompromised: denies: Difficulty Healing, Frequent Infections, Hives, Itching, others Hematologic/Lymphatic: denies: anemia, blood clots, easy bleeding, easy bruising, swollen glands, others Endocrine: denies: excessive hunger, excessive sweating, excessive thirst, excessive urination, flushing, intolerance to cold, intolerance to heat, unexplained weight gain, unexplained weight loss, others Psychiatric: denies: anxiety, bipolar disorder, depression, hopeless, panic disorder, schizophrenia, sleepless, suicidal, others Physical Exam General Appearance: No Apparent Distress, Normal HEENT: Normal ENT Inspection, Pharynx Normal, TMs Normal Neck: Full Range of Motion, Non-Tender, Normal, Normal Inspection Respiratory: Chest Non-Tender, Lungs Clear, No Accessory Muscle Use, No Respiratory Distress, Normal Breath Sounds Cardiovascular: No Edema, No JVD, No Murmur, No Gallop, Normal Peripheral Pulses, Regular Rate/Rhythm Breast Exam: Deferred Gastrointestinal: No Organomegaly, No Pulsatile Mass, Normal Bowel Sounds, Soft, Tenderness Genitalia: Deferred Pelvic: Deferred Rectal: Deferred Extremities: No calf tenderness, Normal capillary refill, Normal inspection, Normal range of motion, Non-tender, No pedal edema Musculoskeletal : Apperance: Normal Neurologic: Alert, 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 Was a procedure done?: No GI differential Dx Differential Diagnosis: Diverticular disease, Gastritis/PUD, Gastroenteritis, Inflammatory BD, Pancreatitis, UTI, Urolithiasis X-Ray, Labs, Meds, VS Vital Signs Date Time Temp Pulse Resp B/P (MAP) Pulse Ox O2 Delivery O2 Flow Rate FiO2 10/01/24 21:42 98.4 109 18 125/69 (87) 97 98.4 Time of 1ST Reevaluation: 22:27 Reevaluation 1ST: Unchanged Patient Education/Counseling: Diagnosis, Treatment Family Education/Counseling: No Family Present Departure 1 Departure Time of Disposition: 00:19 (Patient is 1 of the ER constantly presents asking for opiate medication. Patient is well-appearing we will discharge patient home with outpatient follow up) Impression: Primary Impression: Malingering Disposition: 01 HOME / SELF CARE / HOMELESS Condition: Stable Additional Instructions: Please follow up with the regular doctors Critical Care Note Critical Care Time?: No Stability Stability form required: No Heart Score Heart Score: Heart Score Response (Comments) Value History N/A 0 EKG N/A 0 Age N/A 0 Risk Factors N/A 0 Troponin N/A 0 Total 0 I personally scribed for LISA REYNOLDS MD ([email or web address]) on 10/01/24 at 22:30. Electronically submitted by Brad Richards ([email or web address]). LISA REYNOLDS MD October 01, 2024 22:30
== END 2024-10-02 00:40 | disposition home or self-care (01) ==
LOC: ER 21:20
DX: R10.13 Epigastric pain (principal); I10 Essential (primary) hypertension; F41.9 Anxiety disorder, unspecified; F32.9 Major depressive disorder, single episode, unspecified; F17.210 Nicotine dependence, cigarettes, uncomplicated; F10.90 Alcohol use, unspecified, uncomplicated; Z76.5 Malingerer [conscious simulation]; Z86.2 Personal history of diseases of the blood and blood-forming organs and certain disorders involving the immune mechanism; Z87.11 Personal history of peptic ulcer disease; Z79.899 Other long term (current) drug therapy; Y90.0 Blood alcohol level of less than 20 mg/100 ml

== ENCOUNTER 2024-10-12 02:33 | Emergency (ER) | payer MEDICAID ==
[~2024-10-12] VITALS: Ht 175.3 cm; Wt 61.6 kg
[2024-10-12] MEDS ORDERED: ACET650T12 PO (03:05)
[2024-10-12] MEDS ORDERED: SUCR1TAB31 OR (03:05)
[2024-10-12] MEDS ORDERED: PANT40TA2 PO (03:05)
[2024-10-12 03:12] LABS: Urine Bacteria None Seen /hpf (None Seen)
--- NOTE | 2024-10-12 03:49 | ED.PDOC ---
History of Present Illness HPI Comments 54 y/o M presents with c/o diffused abdominal pain, numbness, and tingling, today. Patient is a poor historian, with a history of frequent ED visits and pain medication seeking behavior. He endorses on undergoing "withdrawal" symptoms after being without [place] following his previous ED visit at [facility] a week ago. Patient also reports on being without his Protonix medication and not taking any [id number] ASA due to his pharmacy running out of medication and him not wanting to take/being unable to afford said medication, respectively. He denies any nausea, vomiting, diarrhea, fever, chills, or further associated symptoms Chief Complaint: Abdominal Pain Time Seen by MD: 03:00 Primary Care Provider: [email or web address] Reviewed Notes: Nurses Notes, Medications, Allergies Allergies: Coded Allergies: NO KNOWN ALLERGIES (Unverified , 04/16/20) Home Meds Active Scripts Pantoprazole Sodium Sesquihydr (Protonix) 40 Mg Tab, 40 MG PO DAILY for 7 Days, #7 TAB Prov:TOMMY HOWELL MD 10/12/24 Sucralfate (CARAFATE) 1 Gm Tab, 1 GM OR TID for 7 Days, #21 TAB Prov:TOMMY HOWELL MD 10/12/24 Acetaminophen (Acetaminophen Er) 650 Mg Tab, 650 MG PO QIDPRN for 5 Days, #20 TAB Prov:TOMMY HOWELL MD 10/12/24 Famotidine (PEPCID TABLET) 20 Mg Tb, 1 TAB PO BID PRN, #60 TAB 5 Refills Prov:ANDREA AHUJA MD 09/26/24 Dicyclomine Hcl (BENTYL CAPSULE) 10 Mg Cp, 1 CAP PO Q6HPRN PRN, #100 CAP 3 Refills Prov:ANDREA AHUJA MD 09/26/24 Famotidine (PEPCID TABLET) 20 Mg Tb, 1 TAB PO BID PRN, #60 TAB 5 Refills Prov:ANDREA AHUJA MD 09/23/24 Ondansetron HCl (Ondansetron Hydrochloride) 8 Mg Tab, 8 MG PO Q6HP PRN for 10 Days, #40 TAB Prov:ANDREA AHUJA MD 09/23/24 Hydrocodone-Acetaminophen (Hydrocodone Bitartrate/AC 5-325 mg) 1 Tab Tab, 1 TAB PO QID PRN, #30 TAB Prov:KAMLESH OLMOS MD 09/21/24 Ondansetron Odt 4MG Tab (ZOFRAN PO) 4 Mg Tb, 4 MG PO TIDPRN PRN for 5 Days, #15 TAB ODT TAB-DISSOLVE IN MOUTH, THEN SWALLOW Prov:TOMMY HOWELL MD 09/16/24 Pantoprazole Sodium Sesquihydr (Protonix) 40 Mg Tab, 40 MG PO BID for 30 Days, #60 TAB Prov:JESUS BRASWELL MD 09/11/24 Sucralfate (Carafate) 1 Gm/10 Ml Shirin, 10 ML PO QID for 30 Days, #1200 ML Prov:JESUS BRASWELL MD 09/11/24 Hydrocodone-Acetaminophen (Hydrocodone Bitartrate/AC 5-325 mg) 1 Tab Tab, 1 TAB PO Q8HP PRN for 7 Days, #21 TAB Prov:EDYTA DUMONT NP 09/02/24 Information Source: Patient Mode of Arrival: Ambulatory Severity: Moderate Timing: Hours Duration: Since onset Prehospital treatment: None Review of Systems: REVIEW OF SYSTEMS: No fever, no chills, HEENT: No neck pain, no blurred vision Cardiac: No chest pain. No palpitations. Lungs: No shortness of breath, GI: Abdominal pain., no vomiting Musculoskeletal: No joint pain , no back pain Skin: No rash, no wound Neuro: Numbness and tingling to abdomen. No headache, no dizziness, no syncope Vital Signs Vital Signs Date Time Temp Pulse Resp B/P (MAP) Pulse Ox O2 Delivery O2 Flow Rate FiO2 10/12/24 04:40 98 Room Air* 0 21 10/12/24 04:26 98.3 78 16 140/97 (111) 98.3 Physical Exam General: Awake, alert and oriented. No acute distress. Skin: Skin in warm, dry and intact without rashes or lesions. HEENT: The head is normocephalic and atraumatic. Conjunctivae are clear without exudates or hemorrhage. Sclera is non-icteric. Neck: Normal range of motion. No JVD. Cardiac: Regular rate Respiratory: No signs of respiratory distress. No Stridor. Gastrointestinal: Abdomen is soft, no rigidity, or guarding; general tenderness. Normal bowel sounds in 4 quadrants. Extremities: Upper and lower extremities are atraumatic in appearance without deformity. Neurological: The patient is awake, alert and oriented to person, place, and time with normal speech. Speech is clear. There is no facial asymmetry. Psychiatric: Appropriate mood and affect. Good judgement and insight. Past Medical History PAST MEDICAL HISTORY: Anemia, Anxiety, Depression, HTN, PUD Surgical History: Denies all surgeries Family History Family History: Reviewed,noncontributory to illness, Family hx of Cancer Social History Smoker: Cigarettes Alcohol: Heavy Drugs: Denies Drug Use Lives In: Home Was a procedure done? Was a procedure done?: No Differential Dx Considerations may include: Malingering, substance abuse, pain seeking behavior, frequent ED visits, chronic pain syndrome, PUD, gastritis, gastroenteritis, among others. X-Ray, Labs, Meds, VS Vital Signs Date Time Temp Pulse Resp B/P (MAP) Pulse Ox O2 Delivery O2 Flow Rate FiO2 10/12/24 04:40 98 Room Air* 0 21 10/12/24 04:26 98.3 78 16 140/97 (111) 97 98.3 10/12/24 02:56 97.8 86 16 148/85 (106) 97 97.8 Lab Test 10/12/24 02:55 Range/Units Urine Color Light-yellow Yellow Urine Clarity Clear Clear Urine pH 6.5 5.0-9.0 Urine Specific [place] 1.025 1.001-1.035 Urine Protein Negative Negative Urine Ketones Negative Negative Urine Blood Negative Negative /uL Urine Nitrite Negative Negative Urine Bilirubin Negative Negative Urine Urobilinogen 2 H Negative mg/dL Urine Leukocyte Esterase Negative Negative /uL Urine RBC None seen 0 - 3 /hpf Urine Microscopic WBC < 1 0-3 /HPF Urine Squamous Epithelial Cells Few <5 /hpf Urine Bacteria None seen None Seen /hpf Urine Glucose Normal Normal mg/dL Current Medications Medications (Trade) Dose Ordered Sig/Rick Route Start Time Stop Time Status Last Admin Acetaminophen (Tylenol Tablet Or Capsule) 1,000 mg ONCE ONCE PO 10/12/24 03:15 10/12/24 03:16 DC 10/12/24 04:28 Pantoprazole Sodium (Protonix Tablet) 40 mg ONCE ONCE PO 10/12/24 03:15 10/12/24 03:16 DC 10/12/24 04:28 Sucralfate (Carafate Susp) 1 gm ONCE ONCE PO 10/12/24 03:15 10/12/24 03:16 DC 10/12/24 04:29 Hydroxyzine Pamoate (Vistaril Oral) 25 mg ONCE ONCE PO 10/12/24 03:15 10/12/24 03:16 DC 10/12/24 04:28 Time of 1ST Reevaluation: 03:30 Reevaluation 1ST: Unchanged Patient Education/Counseling: Need For Follow Up Family Education/Counseling: No Family Present Departure 1 Departure Time of Disposition: 04:30 Impression: Primary Impression: Abdominal pain Disposition: 01 HOME / SELF CARE Condition: Stable Additional Instructions: ED DISCHARGE INSTRUCTIONS Instructions: Please read all instructions provided in this packet carefully. Although you have been discharged from the Emergency Department, this does not mean that you have a "clean bill of health". No definitive diagnosis for your symptoms has been made today. It is possible that you are in the process of developing a serious illness. This is why you must return to the ED without fail if any new or worsening symptoms (especially if your symptoms include chest pain, trouble breathing, abdominal pain, fever, headache, confusion, trouble seeing, or trouble walking) It is also very important that you see a primary care doctor within the next 3-5 days to follow up. If you are unable to get an appointment, return to the ED for re-evaluation. Abdominal Pain: Care Instructions Overview Abdominal pain has many possible causes. Some aren't serious and get better on their own in a few days. Others need more testing and treatment. If your pain continues or gets worse, you need to be rechecked and may need more tests to find out what is wrong. You may need surgery to correct the problem. Don't ignore new symptoms, such as fever, nausea and vomiting, urination problems, pain that gets worse, and dizziness. These may be signs of a more serious problem. If you are not getting better, you may need more tests or treatment. The doctor has checked you carefully, but problems can develop later. If you notice any problems or new symptoms, get medical treatment right away. Follow-up care is a hardin part of your treatment and safety. Be sure to make and go to all appointments, and call your doctor if you are having problems. It's also a good idea to know your test results and keep a list of the medicines you take. How can you care for yourself at home? Rest until you feel better. To prevent dehydration, drink plenty of fluids. Choose water and other clear liquids until you feel better. If you have kidney, heart, or liver disease and have to limit fluids, talk with your doctor before you increase the amount of fl uids you drink. When you feel like eating, start with small amounts. Do not have alcohol, caffeine, or spicy, hot, or high-fat foods for a day or two. Avoid anti-inflammatory medicines such as aspirin, ibuprofen (Advil, Motrin), and naproxen (Aleve). These can cause stomach upset. Talk to your doctor if you take daily aspirin for another health problem. When should you call for help? Call 911 anytime you think you may need emergency care. For example, call if: You passed out (lost consciousness). You pass maroon or very bloody stools. You vomit blood or what looks like coffee grounds. You have severe belly pain. Call your doctor now or seek immediate medical care if: Your pain gets worse, especially if it becomes focused in one area of your belly. You have a new or higher fever. Your stools are black and look like tar, or they have streaks of blood. You have unexpected vaginal bleeding. You have symptoms of a urinary tract infection. These may include: Pain when you urinate. Urinating more often than usual. Blood in your urine. You are dizzy or lightheaded, or you feel like you may faint. Watch closely for changes in your health, and be sure to contact your doctor if: You are not getting better as expected. Credits for Abdominal Pain: Care Instructions Current as of: March 21, 2023 Author: [employer] Staff Clinical Review Board [employer] education is reviewed by a team that includes physicians, nurses, advanced practitioners, registered dieticians, and other healthcare professionals. e-Prescriptions Pantoprazole Sodium Sesquihydr (Protonix) 40 Mg Tab 40 MG PO DAILY for 7 Days, #7 TAB Prov: TOMMY HOWELL MD 10/12/24 Sucralfate (CARAFATE) 1 Gm Tab 1 GM OR TID for 7 Days, #21 TAB Prov: TOMMY HOWELL MD 10/12/24 Acetaminophen (Acetaminophen Er) 650 Mg Tab 650 MG PO QIDPRN for 5 Days, #20 TAB Prov: TOMMY HOWELL MD 10/12/24 Comments 54-year-old male who has frequent visits to this emergency department presents with chronic abdominal pain and generalized body pain. Patient requesting medication for pain and to help him sleep. He states he ran out of his Protonix. Patient's vital signs stable in the emergency department. Abdominal exam is benign. Patient reports recent ED visit and from outside facility where he was prescribed [place]. Patient felt safe for discharge home. He is advised importance of compliance with treatment and follow up with primary care provider for further evaluation treatment and monitoring. He is advised to avoid using aspirin and other NSAIDs for pain. He is advised to return to the emergency department with any new worsening or concerning symptoms. Critical Care Note Critical Care Time?: No Stability Stability form required: No Heart Score Heart Score: Heart Score Response (Comments) Value History N/A 0 EKG N/A 0 Age N/A 0 Risk Factors N/A 0 Troponin N/A 0 Total 0 I personally scribed for TOMMY HWOELL MD ([email or web address]) on 10/12/24 at 03:49. Electronically submitted by Danny Coulter ([email or web address]). TOMMY HOWELL MD October 12, 2024 03:49
[2024-10-12 03:53] LABS: Urine Blood Negative /uL (Negative); Urine Clarity Clear (Clear); Urine Color Light-Yellow (Yellow); Urine Protein, UAD Negative (Negative); Urine Specific Gravity 1.025 (1.001-1.035); Urine Squamous Epithelial Cell FEW /hpf (<5); Urine Urobilinogen 2 mg/dL (Negative); Urine WBC < 1 /HPF (0-3); Urine pH 6.5 (5.0-9.0)
[2024-10-12 04:26] VITALS: BP 140/97; PULSE 78; RESP 16; TEMP 98.3
[2024-10-12] MEDS: ACETAMINOPHEN 500 MG TAB or CAP PO ONE (04:28)
[2024-10-12] MEDS: hydrOXYzine 25 MG TAB or CAP PO ONE (04:28)
[2024-10-12] MEDS: PANTOPRAZOLE 40 MG TAB PO ONE (04:28)
[2024-10-12] MEDS: SUCRALFATE 1 GM/10 ML ORAL SUSP PO ONE (04:29)
[2024-10-12 04:40] VITALS: O2SAT 98
== END 2024-10-12 04:41 | disposition home or self-care (01) ==
LOC: ER 02:33
DX: R10.84 Generalized abdominal pain (principal); F17.210 Nicotine dependence, cigarettes, uncomplicated; F41.9 Anxiety disorder, unspecified; F32.A Depression, unspecified; I10 Essential (primary) hypertension; Z87.11 Personal history of peptic ulcer disease; Z79.899 Other long term (current) drug therapy
CPT/HCPCS: 81001

== ENCOUNTER 2025-05-14 08:06 | Day surgery (SDC) | payer MEDICAID ==
[2025-05-12 12:16] LABS: Hematocrit 36.0 % (41.0-53.0); Hemoglobin 11.6 g/dL (13.5-17.5); Mean Corpuscular Hemoglobin 28.6 pg (28.0-32.0); Mean Corpuscular Volume 88.6 fL (80.0-100.0); Nucleated Red Blood Cells % 0.1 %
[2025-05-12 12:32] LABS: INR 0.95 (0.9-1.15); Partial Thromboplastin Time 25.1 SEC (24.5-34.5); Prothrombin Time 10.1 sec (9.3-11.8)
[2025-05-12 12:52] LABS: Urine Protein, UAD Negative (Negative)
[2025-05-12 13:04] LABS: Alanine Aminotransferase 15 U/L (7-40); Albumin 4.5 g/dL (3.2-4.8); Alkaline Phosphatase 67 U/L (46-116); Anion Gap 6 (5-15); BUN/Creatinine Ratio 17.6 (10.0-20.0); Blood Urea Nitrogen 15 mg/dL (9-23); Calcium 9.5 mg/dL (8.7-10.4); Carbon Dioxide 29 mmol/L (20-31); Chloride 107 mmol/L (98-107); Glucose 103 mg/dL (74-106); Potassium 4.6 mmol/L (3.5-5.1); Sodium 142 mmol/L (136-145); Total Protein 7.1 g/dL (5.7-8.2)
[2025-05-12 13:05] LABS: Bilirubin, Total 0.2 mg/dL (0.2-1.0)
[~2025-05-14] VITALS: Ht 175.3 cm; Wt 59.0 kg
[~2025-05-14 08:06] MED LIST changes: -DICY10CA PO; -FAMO20TA10 PO; -HYDR-4902 PO; -ONDA-180 PO; +SUCR1TAB31 OR; -ZOFR4T PO
[2025-05-14] MEDS ORDERED: MIDAZOLAM HCL 2MG/2ML 2ml VIAL (1mg/ml) ONE (09:33)
[2025-05-14] MEDS ORDERED: PROPOFOL 10 MG/ML 20 ML IV ONE (09:34)
[2025-05-14] MEDS ORDERED: KETAMINE 50mg/ML 10ml Vial 10 ML ONE (09:49)
[2025-05-14] MEDS ORDERED: GLYCOPYRROLATE 0.2 MG/ML 1ML VIAL ONE (09:51)
[2025-05-14] MEDS ORDERED: MEPERIDINE HCL (25 MG/ML) 1ML VIAL ONE (09:54)
[2025-05-14 10:06] VITALS: PULSE 79; RESP 20; TEMP 97.5; O2SAT 100
--- NOTE | 2025-05-14 10:13 | DVHOP2 ---
Operative Report DATE OF OPERATION: 05/14/25 PROCEDURE: Colonoscopy with hot snare polypectomy. PREOPERATIVE INDICATION: The patient is a 55 -year-old male undergoing colonoscopy for colon cancer screening with personal history of constipation POSTOPERATIVE DIAGNOSES: 1. There were two less than 1 cm benign-appearing sigmoid polyps that were seen and removed by hot snare polypectomy and the specimens were retrieved 2. Limited study due to poor prep however complete and grossly normal examination up to the cecum 2. Trace internal hemorrhoids PROCEDURE PERFORMED BY: Kathy Zimmer M.D. SCOPE: Olympus videocolonoscope. ASA CLASS: 3. PREOPERATIVE MEDICATIONS: Mac Dr. Gulshan marmolejo PROCEDURE IN DETAIL: After obtaining an informed consent, the patient was placed on left lateral decubitus position. He was then sedated with the above medications. A rectal examination was performed that was normal. The colonoscope was then passed through the anus into the rectosigmoid and through the descending, transverse, and ascending colon up to the cecum with visualization of the appendiceal orifice, base of the cecum and the ileocecal valve. The colonoscope was then withdrawn. No masses or colitis were seen. There was no clear-cut diverticular disease. Patient had mild tortuosity of the colon. The study was somewhat limited due to poor prep with some chunks of stool in the colon However after aspiration and irrigation no gross lesion was seen. Patient had trace internal hemorrhoid Patient had two less than 1 cm benign-appearing sigmoid polyps that were seen and removed by hot snare polypectomy The patient tolerated the procedure well without difficulty. WITHDRAWAL TIME: 9 minutes QUALITY OF THE PREP: [place] Bowel Prep score: 7. COMPLICATIONS : None SPECIMENS: Sigmoid colon polyps DISPOSITION: Stable D/C to home PLAN: 1. Repeat colonoscopy in near future at patient's convenience with a better two day bowel prep 2. Continue surveillance intervals at every 3-5 years pending pathology results 3. Resume GI soft diet advance as tolerated 4. Hold aspirin NSAIDs blood thinners for five days 5. Outpatient follow up with me in 2-4 weeks to review results and discuss further management KATHY ZIMMER MD May 14, 2025 10:13
[2025-05-14] MEDS ORDERED: ONDANSETRON HCL 4 MG/2 ML VIAL IV PRN (10:15)
[2025-05-14 10:35] VITALS: O2SAT 100
[2025-05-14 10:50] VITALS: BP 152/97; PULSE 70; RESP 13; O2SAT 100
== END 2025-05-14 11:05 | disposition home or self-care (01) ==
LOC: GI 08:06
PROVIDERS: ATTEND Internal Medicine Gastroenterology
DX: K59.00 Constipation, unspecified (principal); K63.5 Polyp of colon; K64.8 Other hemorrhoids; G89.4 Chronic pain syndrome; F17.210 Nicotine dependence, cigarettes, uncomplicated; I10 Essential (primary) hypertension; F32.A Depression, unspecified; F41.9 Anxiety disorder, unspecified; Z87.11 Personal history of peptic ulcer disease; Z82.49 Family history of ischemic heart disease and other diseases of the circulatory system; Z79.899 Other long term (current) drug therapy; Z98.890 Other specified postprocedural states
CPT/HCPCS: 36415; 45385; 80053; 81001; 85025; 85610; 85730; 88305; J2175; J2250; J2704; J7030